=== PATIENT | male | born 1950 | race Caucasian/White ===

== ENCOUNTER 2017-04-01 06:36 | Inpatient (IN) ==
[2017-04-01] MEDS ORDERED: DIAZEPAM 5 MG TABLET ONE (07:42)
[2017-04-01] MEDS ORDERED: diphenhydrAMINE CAP 25 MG CAPSULE ONE (07:42)
[2017-04-01] MEDS ORDERED: POTASSIUM CHLORIDE RIDER 10 MEQ in PREMIX 1 EACH IV PRN (07:44)
[2017-04-01] MEDS ORDERED: ASPIRIN 325 MG TABLET PO ONE (07:44)
[2017-04-01] MEDS ORDERED: DIAZEPAM 5 MG TABLET PO ONE (07:44)
[2017-04-01] MEDS ORDERED: diphenhydrAMINE CAP 25 MG CAPSULE PO ONE (07:44)
[2017-04-01] MEDS ORDERED: MAGNESIUM SULF RIDER 2 GM in PREMIX 1 EACH IV PRN (07:44)
[2017-04-01 07:49] LABS: Basophils # 0.1 10*3/uL (0.0-0.2); Basophils % 0.9 % (0.0-0.8); Eosinophils # 0.2 10*3/uL (0.0-0.87); Eosinophils % 2.8 % (0.00-10.9); Hematocrit 33.4 VOL% (42.0-52.0); Hemoglobin 11.9 GM/DL (14.0-18.0); Immature Granulocytes % 0.5 %; Immature Granulocytes Absolute 0.03 #; Lymphocytes # 1.3 10*3/uL (1.4-4.0); Lymphocytes % 20.1 % (21.2-54.2); Mean Corpuscular HGB Conc 35.6 GM/DL (32-36); Mean Corpuscular Hemoglobin 30 PG (27-34); Mean Corpuscular Volume 84.6 FL (87-102); Mean Platelet Volume 11.8 FL (9.6-12.0); Monocytes # 0.7 10*3/uL (0.11-0.8); Monocytes % 11.2 % (1.7-12.7); Neutrophils # 4.2 10*3/uL (1.4-7.4); Neutrophils % 64.5 % (38.7-73.9); Platelet Count 179 T/CUMM (130-400); Red Blood Count 3.95 MC/CUMM (3.8-5.5); Red Cell Distribution Width 13.1 % (9.3-17.3); White Blood Count 6.5 T/CUMM (4-12)
[2017-04-01] MEDS: SODIUM CHLORIDE 0.9% 1,000 ML IV SCH ×3 (07:51→17:38)
[2017-04-01] MEDS ORDERED: LIDOCAINE 1% 20 ML VIAL ONE (07:52)
[2017-04-01] MEDS ORDERED: HYDROmorphone 2 MG/1 ML VIAL ONE (07:52)
[2017-04-01] MEDS ORDERED: MIDAZOLAM 2 MG/2 ML VIAL ONE (07:52)
[2017-04-01 07:54] LABS: PT Patient Result 10.8 SECS
[2017-04-01 08:00] LABS: Calcium 9.4 MG/DL (8.5-10.1); Magnesium 2.3 MG/DL (1.8-2.4); Osmolality,Calculated 290.7 MOS/KG (273-304); Potassium 3.9 MMOL/L (3.5-5.1)
[2017-04-01] MEDS ORDERED: ADENOSINE 90 MG/30 ML VIAL IV ONE (08:33)
[2017-04-01] MEDS ORDERED: HEPARIN 5,000 UNIT/1 ML VIAL ONE (08:36)
--- NOTE | 2017-04-01 09:12 | Cardiac Catheterization ---
Date of Procedure:: 04/01/17 Post-op diagnosis: same Procedure: Procedures performed: 1. Left heart catheterization 2. Coronary angiography 3. Left ventriculography 4. WaveWire evaluation of LAD lesion 5. Right femoral arteriotomy closed with Angio-Seal device Brief medical summary: Mr. Mathew is a 66-year-old with history of multiple stents including proximal OM occlusion stenting and distal circumflex stenting in 2011. He is back with progressive angina's symptoms that are limiting his physical activity. Description of procedure: After obtaining informed consent, the right groin was prepped and draped in the usual sterile fashion. Next a short 6 Georgian sheath was placed in the right femoral artery using a modified Seldinger technique, after the patient received IV sedation and local anesthetic. Next a JL4 catheter was advanced over a guidewire under fluoroscopic guidance, and was engaged to the left coronary artery after which angiography was performed in multiple views. This was then removed over a wire, and a JR4 catheter was advanced in similar fashion, and was engaged to the right coronary artery after which angiography was performed in multiple views. Given the patient's intermediate to significant LAD disease, I decided to perform WaveWire evaluation. After the WaveWire evaluation, a bent pigtail catheter was advanced into the left ventricle, where hemodynamic measurements were obtained, and left ventriculography was performed. An angiogram of the sheath showed that it was inserted in the right common femoral artery in a vessel suitable for closure. Hemostasis was obtained with Angio-Seal device with no residual bleeding. The patient was transferred from the mobile lab technician in good condition without complication. 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 He was given 3500 units of heparin intravenously. An EBU 3.5 guiding cath was advancing his left coronary artery provided fairly good support. Next a wave wire was calibrated and then advanced across the area of most severe mid LAD disease. Adenosine infusion was given with clearly positive result with FFR of 0.69. Was more variation in the values due to the patient's chronic atrial fibrillation. The catheter wire was then removed from the body. Coronary angiography: Left main coronary artery is normally developed with no significant disease. The left anterior descending artery gives off a thin first diagonal branch, with mild proximal disease in the LAD. There is at least moderately calcification at the first septal takeoff and medially after the first septal there is a 70% area stenosis. Subsequent there is a reasonably long bifurcating but thinner than average second diagonal branch. The LAD has tubular 50% disease in the area between the third and fourth septal perforators. The circumflex gives off a tiny ramus and first obtuse marginal. The second obtuse marginal is nearly average in caliber is reasonably long with a widely patent proximal stent. However the ostium shows an 80% to 90% area of stenosis discretely. There is a average caliber long OM 2 branch which comes off late. There is a thin late OM 3, and an nearly average caliber late OM for branch which has a patent proximal stent which appears to be slightly oversized. There is area 50% stenosis and a "candy wrapper" fashion at the proximal distal end of the stent. Right coronary artery is a dominant vessel and is at least average in caliber. There is moderate calcification in the proximal to midportion of the tortuous right coronary artery. There is 50% proximal and mid stenosis with a area of 70% distal stenosis. There is a long thin acute marginal that supplies part of the PDA territory with 99% proximal disease. The PDA is a bit thinner than average in caliber and has a 50% area of ostial stenosis. There is a thinner than average a reasonably long p.o. 1 branch with mild disease and a tiny peel to branch. Left ventriculography: Left ventricle appears to be normal size with normal LV systolic function. The estimated ejection fraction 60%. There are no segmental wall motion normality noted. Impression: 1. Normal LV systolic function with ejection fraction estimated be 60% without segmental wall motion normality 2. Right dominant system 3. Three-vessel coronary disease as described above including but not limited to: A. 70% moderately calcified mid LAD disease with 50% tubular distal disease ( significant by WaveWire evaluation with FFR 0.69) B. 80% ostial OM stenosis (just proximal to the widely patent stent placed in 2011 which is a 2.5 x 28 Promus); there is also a distal circumflex stent with 50% "candy wrapper" stenoses just proximal and distal to the stent. C. Moderate, less than 50% proximal to mid RCA to stenosis with at least 70% distal disease 4. At least moderate calcification is noted in the proximal to mid LAD as well as in the proximal mid circumflex and RCA. Recommendation discussion: Given the patient has three-vessel disease with a reasonable amount of calcification, believe bypass surgery is the best treatment. I discussed his study with Dr. Larry who will review it. If he agrees elective outpatient bypass surgery will be planned. His symptoms are reasonably stable but are somewhat limiting. His Eliquis treatment will be based on when his surgery is planned. He will need to be held 48 hours before his bypass surgery. He will need to continue baby aspirin his other medications. Anesthesia: minimal conscious sedation Surgeon / Physician: Severino Mendieta Blending Machine Operator: other Estimated blood loss: minimal Specimens: none sent Condition: stable Disposition: post procedure unit - Medications / Follow-up
[2017-04-01] MEDS ORDERED: DEXTROSE 50% 25 GM/50 ML VIAL IV PRN ×2 (11:28)
[2017-04-01] MEDS ORDERED: GLUCAGON 1 MG VIAL IM PRN ×2 (11:28)
[2017-04-01] MEDS ORDERED: CEFUROXIME INJ 1,500 MG in SODIUM CHLORIDE 0.9% 100 ML IV ONE (11:28)
--- NOTE | 2017-04-01 11:28 | Cardiothoracic Progress Note ---
Cardiothoracic Subjective Interval history: Patient is a 66-year-old man who has been having symptoms of increasing chest and neck discomfort associated with exertion. He was admitted for outpatient catheterization which revealed severe three-vessel coronary disease. There is heavy calcification in the proximal vessels and previous stenting procedures. Dr. Mendieta believes that bypass surgery presents the best option. I reviewed the films and I agree and have discussed it at length with the patient and his family and we are planning for bypass surgery in the morning on . The patient has been off Eliquis since Thursday. I think it will be okay to proceed. Exam (Progress Note) - Constitutional Vitals: Period Temp Pulse Resp BP Sys/Guzman Pulse Ox Last 24 Hr 97.2 F 72 20 137/83 98 Result/EKG - Labs CBC & BMP: 04/01/17 07:23 04/01/17 07:23 Labs: Laboratory Results - last 24 hr 04/01/17 04/01/17 04/01/17 07:23 07:23 07:23 WBC 6.5 RBC 3.95 Hgb 11.9 L Hct 33.4 L MCV 84.6 L MCH 30 MCHC 35.6 RDW 13.1 Plt Count 179 MPV 11.8 Neut % (Auto) 64.5 Lymph % (Auto) 20.1 L [place] % (Auto) 11.2 Eos % (Auto) 2.8 Baso % (Auto) 0.9 H Neut # (Auto) 4.2 Lymph # (Auto) 1.3 L [place] # (Auto) 0.7 Eos # (Auto) 0.2 Baso # (Auto) 0.1 Immature Gran % 0.5 Nucleated RBC % 0.0 Immature Gran # 0.03 Nucleated RBCs # 0.00 INR 1.0 PT Patient/Control Mix 10.8 Sodium 138 Potassium 3.9 Chloride 103 Carbon Dioxide 25 Anion Gap 13.9 BUN 32 H Creatinine 1.70 H GFR Calculation 45 BUN/Creatinine Ratio 18.00 Glucose 260 H Calculated Osmolality 290.7 Calcium 9.4 Magnesium 2.3
--- NOTE | 2017-04-01 12:14 | Hospitalist Consult Note ---
Assessment and Plan (1) Diabetes Status: Acute Assessment and plan: Initiate accuchecks achs. SSI insulin ordered. Hbg A1c in am. Current Visit: Yes (2) Hypertension Status: Acute Assessment and plan: Pt's blood pressures are currently stable. Will continue to monitor. Current Visit: Yes (3) Coronary artery disease Status: Acute Assessment and plan: Pt. is s/p heart cath. Pt is scheduled for 1st case CABG in am. Current Visit: Yes History of Present Illness - Consult Narrative Reason for consult: diabetes management History of present illness: Mr. Mathew is a 66 year old white male patient with a history of htn, coronary artery disease, mutliple stents, hyperlipidemia, and diabetes that underwent cardiac catheterization today as a result of progressively worsening chest pain and shortness of breath over the last serveral months. The patient was found to have multi vessel disease and will be undergoing a CABG in the morning. The hospitalist service has been consulted for the management of patient's diabetes. Pt. seen and examined post cath with daughter at bedside. Pt. currently takes metformin and glimperide at home. These medications will be held and a SSI will be initiated. Thank you for the consult and we will follow with you in the care of this patient. CC: Severino Puri - Home Medications and Allergies Home Medications: Home Medications Medication Instructions Recorded Confirmed Type Acyclovir [Zovirax Cap/Tab] 400 mg PO 5X DAILY 10/26/15 04/01/17 History Apixaban [Eliquis] 5 mg PO BID 10/26/15 04/01/17 History Aspirin [Ecotrin] 81 mg PO BEDTIME 10/26/15 04/01/17 History Diltiazem Cd Cap [Cardizem CD] 120 mg PO BID 10/26/15 04/01/17 History Diphenoxylate/Atrop 2.5-0.025 2 tablet PO Q6H PRN 10/26/15 04/01/17 History [Lomotil Tab] Esomeprazole Magnesium [Nexium] 40 mg PO BEDTIME 10/26/15 04/01/17 History Gemfibrozil 600 mg PO BID 10/26/15 04/01/17 History Glimepiride [Amaryl] 4 mg PO BID W/MEALS 10/26/15 04/01/17 History Lidocaine 5% Patch [Lidoderm 5% 1 patch TRANSDERM DAILY 10/26/15 04/01/17 History Patch] Lisinopril 20 mg PO DAILY 10/26/15 04/01/17 History Magnesium Chloride [Slow Mag] 64 mg PO BID 10/26/15 04/01/17 History Methocarbamol Tab [Robaxin Tab] 750 mg PO DAILY PRN 10/26/15 04/01/17 History Multivitamin [One Daily] 1 each PO DAILY 10/26/15 04/01/17 History [place]-3 Fatty Acids [Fish Oil] 1,000 mg PO DAILY 10/26/15 04/01/17 History Umeclidinium Brm/Vilanterol Tr 1 puff INH DAILY 10/26/15 04/01/17 History [Anoro Ellipta] Vitamin E 400 unit PO DAILY 10/26/15 04/01/17 History Zolpidem Tartrate [Ambien Cr] 12.5 mg PO BEDTIME 10/26/15 04/01/17 History diphenhydrAMINE CAP [Benadryl Cap] 25 mg PO Q6H PRN 10/26/15 04/01/17 History metFORMIN [Glucophage] 1,000 mg PO BID W/MEALS 10/26/15 04/01/17 History Hydrocodone/Acetaminophen [Lortab 1 each PO DIRECTED PRN #20 11/02/15 Rx 10-325 mg Tablet] tablet Carvedilol [Coreg] 6.25 mg PO BID 04/01/17 04/01/17 History Furosemide 20 mg PO DAILY 04/01/17 04/01/17 History Gabapentin 300 mg PO BID 04/01/17 04/01/17 History Multivit-Min/FA/Lutein/Zeaxant 1 tablet PO DAILY 04/01/17 04/01/17 History [Icaps Mv Tablet] Rosuvastatin Calcium [Crestor] 40 mg PO BEDTIME 04/01/17 04/01/17 History sitaGLIPtin [Januvia] 100 mg PO DAILY 04/01/17 04/01/17 History Allergies/Adverse Reactions: Allergies Allergy/AdvReac Type Severity Reaction Status Date / Time shrimp Allergy Mild ITCHING Verified 11/01/15 08:25 Sulindac [From Clinoril] Allergy Mild ITCHING Verified 11/01/15 08:25 Medical,Surgical,& Family Hx - Medical History Cardio: History of: Cerebrovascular Disease (A FLUTTER), Hypertension, Cardiovascular Problems (DR LINDQUIST CARDIOVERSION 4-5 YEARS AGO) Neurology: History of: Peripheral Neuropathy (DIABETIC NERVE PAIN) No history of: Seizures HEENT: History of: Eye Problem (READING GLASSES, MACULAR DEGERATION PT GETS SHOTS Q6 WEEKS), Dental Problems (UPPER FULL PLATE) Endocrine: History of: Diabetes Mellitus (NIDDM), Dyslipidemia, Thyroid Disorder Respiratory: History of: Respiratory Problems (ASBESTOSIS) Genitourinary: History of: Kidney Stones Gastrointestinal: History of: GERD, Hemorrhoids, Liver Problems (ELEVATED ENZYMES IN PAST), Polyps (REMOVED), GI Problems (DIARRHEA) Musculoskeletal: History of: Back/Neck Problems, Degenerative Disk Disease ( FRACTURE 1983 DR JONES PAST HX SPINAL INJECTIONS) Other: History of: Cancer (SKIN RIGHT EAR, SHOULDER) - Surgical History Cardiac Surgeries: Sugical HX of: Cardiac Catheterization (5 STENTS) HEENT Surgeries: Surgical HX of: Eye Surgery (LEFT EYE RETINA SURGERY), Thyroid Surgery (BX), Tonsilectomy & Adenoidectomy Abdominal Surgeries: Surgical HX of: Cholecystectomy, Colonoscopy, EGD Orthopedic Surgeries: Surgical HX of;: Implanted Devices (5 STENTS), Orthopedic Surgery (BILATERAL CARPAL TUNNEL) - Family History Family History: Reports;: Family Anesthesia Reaction (MOTHER ALLEGRY), Family Diabetes (MOTHER), Family Heart Disease (MOTHER FATHER), Family Hypertension ( MOTHER AND FATHER), Family Stroke (FATHER) - Social History Smoking Status: Former smoker Frequency of Alcohol Use: None Type of Drug Use: None Marital Status: Lives With:: Spouse Functional capacity: independent ambulation - Constitutional Constitutional: Absent: chills, fever(s) - EENT Eyes: Absent: blurry vision Ears: Absent: decreased hearing - Cardiovascular Cardiovascular: Present: chest pain at rest, chest pain with activity, dyspnea on exertion. Absent: edema - Respiratory Respiratory: Present: dyspnea - Gastrointestinal Gastrointestinal: Absent: abdominal pain, nausea, vomiting - Genitourinary Genitourinary: Absent: difficulty urinating - Musculoskeletal Musculoskeletal: Present: back pain - Neurological Neurological: Absent: confusion Exam - Constitutional Vitals: Period Temp Pulse Resp BP Sys/Guzman Pulse Ox Last 24 Hr 97.2 F-97.8 F 58-72 18-20 130-137/76-83 98-100 General appearance: normal weight, no acute distress - Head Head exam: Present: normal inspection, normocephalic - Eye Eye exam: Present: EOMI. Absent: periorbital swelling Pupils: Present: HEATHER. Absent: fixed - Cardiovascular Cardiovascular exam: Present: regular rate and rhythm - GI/Abdominal GI/Abdominal exam: Present: normal bowel sounds, soft. Absent: tenderness - Extremities Exam Extremities exam: Present: normal capillary refill, full ROM. Absent: edema - Neurological Exam Neurological exam: Present: alert, oriented X3 - Psychiatric Psychiatric exam: Present: normal affect, normal mood - Skin Skin exam: Present: normal color, warm, dry Results - Labs CBC & BMP: 04/01/17 07:23 04/01/17 07:23 Lab Results: I have reviewed the past 24 hour labs Quality Measures - VTE Contraindication to Pharmacological VTE Prophylaxis: High Risk of Bleeding
--- NOTE | 2017-04-01 12:19 | EKG Report ---
Stationary ECG Study [facility] Test Date: 04/01/2017 12:19:41 PM Pat Name: SANIYA SPARKS Department: Room: 266 Gender: M Cylinder Honer: ELVI : 1950 Requested by: Kobe Krishnamurthy Order Number: [id number] Reading MD: EDINSON LLAMAS Intervals [place] Rate: 61 P: 999 ID: 0 QRS: 5 QRSD: 95 T: -11 QT: 392 QTc: 395 Interpretive Statements ATRIAL FIBRILLATION MINIMAL VOLTAGE CRITERIA FOR LVH INFERIOR MYOCARDIAL INFARCTION, PROBABLY OLD Electronically Signed On 04-01-17 17:57:12 CDT by EDINSON LLAMAS [email or web address]
[2017-04-01 13:56] LABS: ABG HCO3 22.7 MMOL/L (20-26); ABG Oxygen Saturation 99.1 % (95-100); ABG PCO2 39.8 MM HG (35-48); ABG TCO2 20.9 MMOL/L (23-27); Allen Test Positive
[2017-04-01] MEDS ORDERED: diphenhydrAMINE CAP 25 MG CAPSULE PO PRN (15:16)
[2017-04-01] MEDS ORDERED: DIPHENOXYLATE/ATROPINE 2.5-0.025 MG TABLET PO PRN (15:16)
[2017-04-01] MEDS ORDERED: ONDANSETRON 4 MG/2 ML VIAL IV PRN (15:22)
--- NOTE | 2017-04-01 15:45 | Sleep Medicine Consult ---
Assessment and Plan (1) Unspecified sleep apnea Status: Acute Assessment and plan: This patient has symptoms quite concerning for sleep apnea and I do recommend HST evaluation tonight. We will follow-up on these results and further management and care postoperatively. Thank you for this consult. Current Visit: Yes (2) Diabetes Status: Acute Assessment and plan: The prevalence rate for obstructive sleep apnea in patients with type 2 diabetes can be as high as 86%. Those patients with moderate to severe obstructive sleep apnea are at a greater risk for diabetic nephropathy and neuropathy. Compliance with CPAP therapy for these patients can lead to improvement in glycemic control and improvement in insulin sensitivity. Current Visit: Yes (3) Hypertension Status: Acute Assessment and plan: The prevalence rate for obstructive sleep apnea patients with hypertension is 35 %. That rate can be as high as 80% in patients who require 4 or more medications for blood pressure control. Current Visit: Yes (4) Coronary artery disease Status: Acute Assessment and plan: I reviewed the Poe data from Lancet 2004 with the patient to their understanding. This study proved significant reduction in the risk of fatal and nonfatal cardiac events in patients with severe obstructive sleep apnea compliant with CPAP, in comparison with those noncompliant with CPAP for severe sleep apnea. Current Visit: Yes History of Present Illness Chief complaint: Sleep apnea History of present illness: Mr. Mathew is a 66 year old male admitted with chest pain and abnormal heart cath. He is scheduled to undergo bypass surgery tomorrow by Dr. Larry. He underwent screening sleep evaluation and had an elevated stop bang score of 6 and an [place] sleepiness score of 16. He does have a history of loud snoring and abnormal breathing during sleep with witnessed apneas according to his . He does have unrefreshing sleep and frequent urination with nocturia. He has significant past medical history of coronary artery disease and diabetes. Home Medications Medication Instructions Recorded Confirmed Type Acyclovir [Zovirax Cap/Tab] 400 mg PO 5X DAILY 10/26/15 04/01/17 History Apixaban [Eliquis] 5 mg PO BID 10/26/15 04/01/17 History Aspirin [Ecotrin] 81 mg PO BEDTIME 10/26/15 04/01/17 History Diltiazem Cd Cap [Cardizem CD] 120 mg PO BID 10/26/15 04/01/17 History Diphenoxylate/Atrop 2.5-0.025 2 tablet PO Q6H PRN 10/26/15 04/01/17 History [Lomotil Tab] Esomeprazole Magnesium [Nexium] 40 mg PO BEDTIME 10/26/15 04/01/17 History Gemfibrozil 600 mg PO BID 10/26/15 04/01/17 History Glimepiride [Amaryl] 4 mg PO BID W/MEALS 10/26/15 04/01/17 History Lidocaine 5% Patch [Lidoderm 5% 1 patch TRANSDERM DAILY 10/26/15 04/01/17 History Patch] Lisinopril 20 mg PO DAILY 10/26/15 04/01/17 History Magnesium Chloride [Slow Mag] 64 mg PO BID 10/26/15 04/01/17 History Methocarbamol Tab [Robaxin Tab] 750 mg PO DAILY PRN 10/26/15 04/01/17 History Multivitamin [One Daily] 1 each PO DAILY 10/26/15 04/01/17 History [place]-3 Fatty Acids [Fish Oil] 1,000 mg PO DAILY 10/26/15 04/01/17 History Umeclidinium Brm/Vilanterol Tr 1 puff INH DAILY 10/26/15 04/01/17 History [Anoro Ellipta] Vitamin E 400 unit PO DAILY 10/26/15 04/01/17 History Zolpidem Tartrate [Ambien Cr] 12.5 mg PO BEDTIME 10/26/15 04/01/17 History diphenhydrAMINE CAP [Benadryl Cap] 25 mg PO Q6H PRN 10/26/15 04/01/17 History metFORMIN [Glucophage] 1,000 mg PO BID W/MEALS 10/26/15 04/01/17 History Hydrocodone/Acetaminophen [Lortab 1 each PO DIRECTED PRN #20 11/02/15 Rx 10-325 mg Tablet] tablet Carvedilol [Coreg] 6.25 mg PO BID 04/01/17 04/01/17 History Furosemide 20 mg PO DAILY 04/01/17 04/01/17 History Gabapentin 300 mg PO BID 04/01/17 04/01/17 History Multivit-Min/FA/Lutein/Zeaxant 1 tablet PO DAILY 04/01/17 04/01/17 History [Icaps Mv Tablet] Rosuvastatin Calcium [Crestor] 40 mg PO BEDTIME 04/01/17 04/01/17 History sitaGLIPtin [Januvia] 100 mg PO DAILY 04/01/17 04/01/17 History Allergies Allergy/AdvReac Type Severity Reaction Status Date / Time shrimp Allergy Mild ITCHING Verified 11/01/15 08:25 Sulindac [From Clinoril] Allergy Mild ITCHING Verified 11/01/15 08:25 Review of systems: Otherwise unremarkable from a sleep standpoint. Exam (Pulmonay) H&P - Constitutional Vitals: Period Temp Pulse Resp BP Sys/Guzman Pulse Ox Last 24 Hr 97.1 F-97.8 F 58-74 18-20 114-155/64-83 98-100 Exam: He is alert and responsive in no acute distress. Pupils equal round reactive to light and accommodation. Extraocular movements intact. Oropharynx with a class II Mallampati exam with a prominent right tonsil compared to the left. Neck is supple without adenopathy or thyromegaly. No supraclavicular adenopathy is noted. Chest with symmetrical breath sounds without focal wheeze , rhonchi, or rales. Cardiac exam reveals a regular rhythm without murmur or gallop. Abdomen soft nontender without palpable hepatosplenomegaly or mass. Extremities are without clubbing, cyanosis, or edema. Neurologically, he is grossly intact. Moves all extremities with good strength and answers questions appropriately. Medical,Surgical,& Family Hx - Medical History Cardio: History of: Cerebrovascular Disease (A FLUTTER), Hypertension, Cardiovascular Problems (DR LINDQUIST CARDIOVERSION 4-5 YEARS AGO) Neurology: History of: Peripheral Neuropathy (DIABETIC NERVE PAIN) No history of: Seizures HEENT: History of: Eye Problem (READING GLASSES, MACULAR DEGERATION PT GETS SHOTS Q6 WEEKS), Dental Problems (UPPER FULL PLATE) Endocrine: History of: Diabetes Mellitus (NIDDM), Dyslipidemia, Thyroid Disorder Respiratory: History of: Respiratory Problems (ASBESTOSIS) Genitourinary: History of: Kidney Stones Gastrointestinal: History of: GERD, Hemorrhoids, Liver Problems (ELEVATED ENZYMES IN PAST), Polyps (REMOVED), GI Problems (DIARRHEA) Musculoskeletal: History of: Back/Neck Problems, Degenerative Disk Disease ( FRACTURE 1984 DR JONES PAST HX SPINAL INJECTIONS) Other: History of: Cancer (SKIN RIGHT EAR, SHOULDER) - Surgical History Cardiac Surgeries: Sugical HX of: Cardiac Catheterization (5 STENTS) HEENT Surgeries: Surgical HX of: Eye Surgery (LEFT EYE RETINA SURGERY), Thyroid Surgery (BX), Tonsilectomy & Adenoidectomy Abdominal Surgeries: Surgical HX of: Cholecystectomy, Colonoscopy, EGD Orthopedic Surgeries: Surgical HX of;: Implanted Devices (5 STENTS), Orthopedic Surgery (BILATERAL CARPAL TUNNEL) - Family History Family History: Reports;: Family Anesthesia Reaction (MOTHER ALLEGRY), Family Diabetes (MOTHER), Family Heart Disease (MOTHER FATHER), Family Hypertension ( MOTHER AND FATHER), Family Stroke (FATHER) - Social History Smoking Status: Former smoker Frequency of Alcohol Use: None Type of Drug Use: None Results - Labs CBC & BMP: 04/01/17 07:23 04/01/17 07:23 Lab Results: I have reviewed the past 24 hour labs Quality Measures - VTE Contraindication to Pharmacological VTE Prophylaxis: High Risk of Bleeding
[2017-04-01] MEDS: INSULIN LISPRO 100 UNIT/ML SUBCUT SCH ×2 (16:13→20:26)
[2017-04-01] MEDS: CARVEDILOL 6.25 MG TABLET PO SCH (16:13)
[2017-04-01] MEDS: CHLORHEXIDINE 4% SOLN 118 ML BOTTLE TOP SCH ×2 (16:15→21:44)
--- NOTE | 2017-04-01 18:29 | XRay Report ---
History: Coronary artery disease Date: 04/01/2017 Study: Chest x-ray PA and lateral Comparison exam: September 12, 2012 The cardiomediastinal silhouette and pulmonary vasculature are unremarkable. The lungs and pleural spaces are clear. There is no pleural effusion. Osseous structures are unchanged. Impression: No acute cardiopulmonary process compared to the previous study PROCEDURE INTERPRETED AT [facility] DEPARTMENT OF RADIOLOGY Final Report Signed by: Dr. Clementina Vicente
[2017-04-01] MEDS: MAGNESIUM CHLORIDE 64 MG TABLET PO SCH (20:24)
[2017-04-01] MEDS: DILTIAZEM CD 120 MG CAPSULE PO SCH (20:25)
[2017-04-01] MEDS: GABAPENTIN 300 MG CAPSULE PO SCH (20:25)
[2017-04-01] MEDS: CHLORHEXIDINE 0.12% ORAL RINSE 60 ML BOTTLE SWISH/SPIT SCH (20:34)
[2017-04-01] MEDS ORDERED: ZALEPLON 5 MG CAPSULE PO SCH (21:00)
[2017-04-01] MEDS ORDERED: ROSUVASTATIN 20 MG TABLET PO SCH (21:00)
[2017-04-02 04:32] LABS: Basophils % 0.6 % (0.0-0.8); Eosinophils # 0.2 10*3/uL (0.0-0.87); Eosinophils % 2.4 % (0.00-10.9); Hemoglobin 10.7 GM/DL (14.0-18.0); Immature Granulocytes % 0.3 %; Immature Granulocytes Absolute 0.02 #; Lymphocytes # 1.3 10*3/uL (1.4-4.0); Lymphocytes % 21.2 % (21.2-54.2); Mean Corpuscular HGB Conc 34.5 GM/DL (32-36); Mean Corpuscular Hemoglobin 30 PG (27-34); Mean Corpuscular Volume 85.4 FL (87-102); Mean Platelet Volume 11.7 FL (9.6-12.0); Monocytes # 0.8 10*3/uL (0.11-0.8); Monocytes % 12.7 % (1.7-12.7); Neutrophils # 3.9 10*3/uL (1.4-7.4); Neutrophils % 62.8 % (38.7-73.9); Platelet Count 162 T/CUMM (130-400); Red Blood Count 3.63 MC/CUMM (3.8-5.5); Red Cell Distribution Width 13.2 % (9.3-17.3); White Blood Count 6.3 T/CUMM (4-12)
[2017-04-02] MEDS ORDERED: PAPAVERINE 60 MG/2 ML VIAL ONE (04:34)
[2017-04-02] MEDS ORDERED: VANCOMYCIN 1,000 MG VIAL ONE (04:34)
[2017-04-02] MEDS ORDERED: TISSUE ADHESIVE 1 EACH APPLICATOR TOP ONE (04:34)
[2017-04-02 05:07] LABS: Calcium 8.9 MG/DL (8.5-10.1); Magnesium 2.3 MG/DL (1.8-2.4); Osmolality,Calculated 285.4 MOS/KG (273-304)
[2017-04-02] MEDS: SODIUM CHLORIDE 0.9% 1,000 ML IV SCH ×2 (05:19→19:18)
[2017-04-02] MEDS: CHLORHEXIDINE 4% SOLN 118 ML BOTTLE TOP SCH ×2 (05:20→12:01)
[2017-04-02] MEDS ORDERED: CEFUROXIME INJ 1,500 MG in SODIUM CHLORIDE 0.9% 100 ML IV ONE (05:30)
[2017-04-02] MEDS ORDERED: LORazepam 1 MG TABLET PO ONE (05:44)
[2017-04-02 07:31] LABS: ABG Base Excess -2.4 MMOL/L (-2.5-2.5); ABG HCO3 22.4 MMOL/L (20-26); ABG Oxygen Saturation 99.8 % (95-100); ABG PCO2 37.3 MM HG (35-48); ABG PH 7.383 (7.35-7.45); ABG TCO2 20.2 MMOL/L (23-27); Glucose Heart Surgery 196 MG/DL (74-106); Hematocrit Heart Surgery 31.4 PERCENT (42-52); Hemoglobin Heart Surgery 10.2 G/DL (14.0-18.0); Ionized Calcium Arterial 1.14 MMOL/L (1.21-1.46); PCO2 Patient Temp Arterial 37.3 MMHG; PH Patient Temp Arterial 7.383; Patient Temperature 37 CELCIUS; Potassium Heart/CVR 3.8 MMOL/L (3.5-5.1); Sodium Heart/CVR 139 MMOL/L (135-145)
[2017-04-02 07:34] LABS: Apearance,Urine CLEAR (Clear); Bilirubin,Urine Negative (Negative); Blood, Urine Small mg/dL (Negative); Glucose,Urine (UA) Negative (Negative); Ketones,Urine Negative (Negative); Mucus,Urine Occasional /LPF (Occasional); Nitrite,Urine Negative (Negative); Protein,Urine Negative; Urine Color Straw (Yellow); Urine Specific Gravity 1.008 (1.001-1.035); Urine Urobilinogen < 2.0 EU/DL (0.2-1.0); WBC,Urine <1 /HPF (0-6)
--- NOTE | 2017-04-02 08:02 | Anesthesia Procedures ---
Anesthesia Procedures - Central Venous Insert Monitors Applied: pulse oximetry, EKG, BP cuff, oxygen via MSBT: pulse oximetry, EKG, BP cuff, oxygen via Procedure: after sterile technique was performed as outlined above, , ultrasound guidance was used to identify vessel, 18G introducer needle was passed into vessel under direct visualizatio, triple lumen catheter was passed over guidewire without difficulty, catheter sutured into place and the ports flushed with NS/hepflush, sterlie dressing applied including the antibiotic disc , vital signs were stable throughout procedure, no apparent complications were noted Ultrasound used: identify patency vessel, visualize needle entry to vessel Vein Cannulated: right internal juglar - Arterial Line Consent obtained arterial line: written consent Time out performed arterial line: Yes Size (Gauge): 20 Technique used arterial line: guide wire technique Post-Procedure: line sutured into place, dry sterile dressing placed Patient tolerated procedure arterial line: well Complications art line: none Site: right, radial
[2017-04-02] MEDS ORDERED: MULTIVITAMIN (CENTRUM) TABLET PO SCH (09:00)
[2017-04-02] MEDS ORDERED: NON-FORMULARY MEDICATION (Umeclidinium Brm/Vilanterol Tr [Anoro Ellipta] 1 PUFF) INH SCH (09:00)
[2017-04-02] MEDS ORDERED: VITAMIN E 400 UNIT CAPSULE PO SCH (09:00)
[2017-04-02] MEDS ORDERED: OMEGA 3 ACID ETHYL ESTERS 1 GM CAPSULE PO SCH (09:00)
[2017-04-02] MEDS ORDERED: LISINOPRIL 20 MG TABLET PO SCH (09:00)
[2017-04-02] MEDS ORDERED: PHENYLEPHRINE DRIP 40 MG/250 ML PREMIX IV ONE (09:07)
[2017-04-02] MEDS ORDERED: NITROPRUSSIDE 50 MG/2 ML VIAL ONE (09:07)
[2017-04-02] MEDS ORDERED: POTASSIUM CHLORIDE RIDER 100 ML IV ONE (09:07)
[2017-04-02] MEDS ORDERED: INSULIN REGULAR DRIP 100 ML IV ONE (09:09)
[2017-04-02 09:13] LABS: Hematocrit Heart Surgery 21.3 PERCENT (42-52); Hemoglobin Heart Surgery 6.8 G/DL (14.0-18.0); PCO2 Patient Temp Venous 39.3 MM HG; PH Patient Temp Venous 7.397; PO2 Patient Temp Venous 30.5 MM HG; Potassium Heart/CVR 5.3 MMOL/L (3.5-5.1); VBG Base Excess -0.3 MEQ/L (0-4); VBG HCO3 23.9 MEQ/L (24-28); VBG Oxygen Saturation 69.5 %; VBG PCO2 45.4 MMHG (41-51); VBG PH 7.354; VBG PO2 37.6 MMHG (17-40)
[2017-04-02 09:44] LABS: Hematocrit Heart Surgery 23.8 PERCENT (42-52); Hemoglobin Heart Surgery 7.6 G/DL (14.0-18.0); PCO2 Patient Temp Venous 39.3 MM HG; PH Patient Temp Venous 7.389; PO2 Patient Temp Venous 36.2 MM HG; VBG Base Excess -0.9 MEQ/L (0-4); VBG HCO3 23.4 MEQ/L (24-28); VBG Oxygen Saturation 78.4 %; VBG PCO2 45.4 MMHG (41-51); VBG PH 7.346; VBG PO2 44.5 MMHG (17-40)
[2017-04-02] MEDS ORDERED: INSULIN REGULAR 100 UNIT/ML ONE (09:58)
--- NOTE | 2017-04-02 10:17 | Anesthesia Procedures ---
Anesthesia Procedures - Arterial Line Consent obtained arterial line: written consent Time out performed arterial line: Yes Size (Gauge): 20 Technique used arterial line: guide wire technique Post-Procedure: line sutured into place, dry sterile dressing placed Patient tolerated procedure arterial line: well, no complications Complications art line: none Site: right
[2017-04-02] MEDS ORDERED: DEXTROSE 5% KCL 20 MEQ 20 MEQ/1,000 ML BAG IV ONE (10:38)
[2017-04-02] MEDS ORDERED: PROTAMINE SULFATE 250 MG/25 ML VIAL IV ONE (10:38)
[2017-04-02] MEDS ORDERED: SODIUM BICARBONATE 50 MEQ/50 ML SYRINGE IV ONE (10:38)
[2017-04-02] MEDS ORDERED: PHENYLEPHRINE DRIP 20 MG/250 ML PREMIX IV ONE (10:38)
[2017-04-02] MEDS ORDERED: ALBUMIN 25% 25 GM/100 ML VIAL IV ONE (10:38)
[2017-04-02] MEDS ORDERED: FUROSEMIDE 20 MG/2 ML VIAL ONE (10:39)
[2017-04-02] MEDS ORDERED: HEPARIN 10,000 UNIT/10 ML VIAL ONE (10:39)
[2017-04-02] MEDS ORDERED: methylPREDNISolone SOD SUC 1,000 MG/8 ML VIAL ONE (10:39)
[2017-04-02] MEDS ORDERED: PROTAMINE SULFATE 50 MG/5 ML VIAL IV ONE ×3 (10:39→12:02)
[2017-04-02] MEDS ORDERED: MANNITOL 12.5 GM/50 ML VIAL IV ONE (10:39)
[2017-04-02] MEDS ORDERED: MAGNESIUM SULFATE 1 GM/2 ML VIAL ONE (10:39)
[2017-04-02 10:50] LABS: ABG Base Excess -2.5 MMOL/L (-2.5-2.5); ABG HCO3 22.4 MMOL/L (20-26); ABG Oxygen Saturation 99.5 % (95-100); ABG PCO2 35.7 MM HG (35-48); ABG PH 7.397 (7.35-7.45); ABG TCO2 20.6 MMOL/L (23-27); Glucose Heart Surgery 287 MG/DL (74-106); Hematocrit Heart Surgery 24.5 PERCENT (42-52); Hemoglobin Heart Surgery 7.9 G/DL (14.0-18.0); Ionized Calcium Arterial 1.24 MMOL/L (1.21-1.46); PCO2 Patient Temp Arterial 35.7 MMHG; PH Patient Temp Arterial 7.397; Patient Temperature 37 CELCIUS; Potassium Heart/CVR 4.2 MMOL/L (3.5-5.1); Sodium Heart/CVR 133 MMOL/L (135-145)
[2017-04-02] MEDS ORDERED: AMIODARONE 450 MG/9 ML VIAL IV ONE (11:16)
[2017-04-02] MEDS ORDERED: AMIODARONE INJ 450 MG in DEXTROSE 5% 241 ML IV SCH ×2 (11:30→13:00)
[2017-04-02] MEDS ORDERED: VECURONIUM 10 MG VIAL IV PRN ×2 (11:37)
[2017-04-02] MEDS ORDERED: LACTATED RINGERS 250 ML IV PRN (11:37)
[2017-04-02] MEDS ORDERED: NITROPRUSSIDE 100 MG in DEXTROSE 5% 250 ML IV PRN (11:37)
[2017-04-02] MEDS ORDERED: ONDANSETRON 4 MG/2 ML VIAL IV PRN (11:37)
[2017-04-02] MEDS ORDERED: MIDAZOLAM 2 MG/2 ML VIAL IV PRN (11:37)
[2017-04-02] MEDS ORDERED: DEXTROSE 50% 25 GM/50 ML VIAL IV PRN ×2 (11:37)
[2017-04-02] MEDS ORDERED: ALBUMIN 5% 12.5 GM in PREMIX 1 EACH IV PRN (11:37)
[2017-04-02] MEDS ORDERED: CALCIUM CHLORIDE 1,000 MG/10 ML SYRINGE IV PRN (11:37)
[2017-04-02] MEDS ORDERED: MIDAZOLAM 10 MG/2 ML VIAL IV PRN (11:37)
[2017-04-02] MEDS ORDERED: MAGNESIUM SULF RIDER 4 GM in PREMIX 1 EACH IV PRN (11:37)
[2017-04-02] MEDS ORDERED: PHENYLEPHRINE DRIP 40 MG/250 ML PREMIX IV PRN (11:37)
[2017-04-02] MEDS ORDERED: ACETAMINOPHEN 650 MG SUPP RECTAL PRN (11:37)
[2017-04-02] MEDS ORDERED: MORPHINE 10 MG/1 ML VIAL IV PRN (11:37)
[2017-04-02] MEDS ORDERED: INSULIN REGULAR 100 UNIT/ML IV ONE (11:37)
[2017-04-02] MEDS ORDERED: MAGNESIUM SULF RIDER 2 GM in PREMIX 1 EACH IV PRN (11:37)
--- NOTE | 2017-04-02 11:41 | Anesthesia Post-Op ---
Anesthesia Post OP - Post Ansesthetic Evaluation Patient seen in post op: Yes Resp: within normal limits (pt remains on ventilator) CV: within normal limits Mental: within normal limits (pt sedate) Temp: within normal limits [id number]-Byrhqmbyr: within normal limits Nausea and Vomiting: within normal limits Pain: within normal limits (pt sedate)
--- NOTE | 2017-04-02 11:45 | Operative Note ---
Date of procedure: 04/02/17 Pre-op diagnosis: Coronary artery disease Post-op diagnosis: same Procedure: Procedure: Coronary bypass grafting 3 with an internal mammary graft to the anterior descending coronary artery and saphenous vein graft to the obtuse marginal and right coronary arteries. Findings: Patient is a 66-year-old man who presented with recent onset of substernal chest pain. Cardiac catheterization demonstrated triple-vessel coronary disease and the patient was advised to help bypass surgery. At the time of surgery left ventricular function was noted to be within normal limits although the patient was in atrial fibrillation. Bypass grafts were placed to the anterior descending coronary artery using the left internal mammary artery and the left anterior descending was a moderate-sized vessel which was relatively free of disease at the site of anastomosis. Saphenous vein grafts were placed to the obtuse marginal and right coronary arteries both of which were of average caliber and relatively free of disease at the site of anastomosis. Patient tolerated procedure well and was returned to recovery in satisfactory condition. Procedure: Patient was brought to the operating room placed on the operating table in the supine position. After satisfactory induction of general anesthesia the chest abdomen and legs were prepped and draped in sterile fashion. Greater saphenous vein was harvested from each lower leg and prepared is an arterial graft. Incisions in the leg were closed with 3-0 subcutaneous Monocryl and 3-0 subcuticular Monocryl. A standard sternotomy incision was made and the sternum was divided and the heart suspended in a pericardial cradle. Left internal mammary artery was dissected free and prepared as an arterial graft. Patient was prepared for cardiopulmonary bypass with systemic heparinization and cannulation of the ascending aorta and right atrium. Cardiopulmonary bypass was begun and the aorta was crossclamped and the heart arrested with cardioplegia solution injected into the aortic root. Heart was protected during the period of crossclamping with topical saline slush. Distal anastomoses were constructed as noted above and then the aorta was unclamped and cardiac action reestablished. Proximal anastomoses were constructed between the inflow ends of the saphenous vein grafts in the ascending aorta. Patient was then weaned from cardiopulmonary bypass without difficulty and heparin effect reversed with protamine. Decannulation was carried out in a defects in the ascending aorta right atrium closed with 3-0 Prolene. Operative field was inspected for hemostasis and this was considered adequate incision was closed with interrupted stainless steel wire and the sternum 0 Monopril in the presternal fascia and 3-0 Monocryl placed subcuticular position. 2 chest tubes were left one in the left hemithorax and one in the anterior mediastinum and brought out through separate stab incisions. Sterile dressings were applied patient was returned to recovery in satisfactory condition. Anesthesia: ERROL Surgeon / Physician: Kobe Larry Estimated blood loss: other (Unable to determine because of cardiopulmonary bypass) Condition: stable Disposition: ICU Results - Labs CBC & BMP: 04/02/17 10:46 04/02/17 03:59 Discharge Plan - Discharge Medications No Action diphenhydrAMINE CAP [Benadryl Cap] 25 mg PO Q6H PRN PRN Reason: Itching Methocarbamol Tab [Robaxin Tab] 750 mg PO DAILY PRN PRN Reason: Muscle Spasm Lidocaine 5% Patch [Lidoderm 5% Patch] 1 patch TRANSDERM DAILY Diphenoxylate/Atrop 2.5-0.025 [Lomotil Tab] 2 tablet PO Q6H PRN PRN Reason: Diarrhea Acyclovir [Zovirax Cap/Tab] 400 mg PO 5X DAILY [place]-3 Fatty Acids [Fish Oil] 1,000 mg PO DAILY Apixaban [Eliquis] 5 mg PO BID Zolpidem Tartrate [Ambien Cr] 12.5 mg PO BEDTIME Magnesium Chloride [Slow Mag] 64 mg PO BID Multivitamin [One Daily] 1 each PO DAILY Diltiazem Cd Cap [Cardizem CD] 120 mg PO BID Aspirin [Ecotrin] 81 mg PO BEDTIME Vitamin E 400 unit PO DAILY Glimepiride [Amaryl] 4 mg PO BID W/MEALS Lisinopril 20 mg PO DAILY Gemfibrozil 600 mg PO BID metFORMIN [Glucophage] 1,000 mg PO BID W/MEALS Esomeprazole Magnesium [Nexium] 40 mg PO BEDTIME Umeclidinium Brm/Vilanterol Tr [Anoro Ellipta] 1 puff INH DAILY Hydrocodone/Acetaminophen [Lortab 10-325 mg Tablet] 1 each PO DIRECTED PRN #20 tablet PRN Reason: Pain Multivit-Min/FA/Lutein/Zeaxant [Icaps Mv Tablet] 1 tablet PO DAILY Furosemide 20 mg PO DAILY Gabapentin 300 mg PO BID sitaGLIPtin [Januvia] 100 mg PO DAILY Rosuvastatin Calcium [Crestor] 40 mg PO BEDTIME Carvedilol [Coreg] 6.25 mg PO BID - Follow Up or Referral - Forms/Instructions
[2017-04-02] MEDS ORDERED: SUFentanil 250 MCG/5 ML AMP ONE (11:47)
[2017-04-02] MEDS ORDERED: SEVOFLURANE 1 UNIT/15 MINUTE INH ONE (11:47)
[2017-04-02] MEDS ORDERED: SODIUM CHLORIDE 0.9% 1,000 ML IV ONE (11:48)
[2017-04-02] MEDS ORDERED: SODIUM CHLORIDE 0.9% 250 ML IV ONE (11:48)
[2017-04-02] MEDS ORDERED: ePHEDrine 50 MG/ML AMP ONE (11:49)
[2017-04-02] MEDS ORDERED: SODIUM CHLORIDE 0.45% 1,000 ML IV SCH ×2 (12:00)
[2017-04-02 12:05] LABS: ABG Base Excess -2.5 MMOL/L (-2.5-2.5); ABG HCO3 21.7 MMOL/L (20-26); ABG Oxygen Saturation 97.8 % (95-100); ABG PO2 120.2 MM HG (80-95); ABG TCO2 22.8 MMOL/L (23-27); Glucose Heart Surgery 226 MG/DL (74-106); Hemoglobin Heart Surgery 9.5 G/DL (14.0-18.0); Potassium Heart/CVR 3.7 MMOL/L (3.5-5.1)
[2017-04-02 12:08] LABS: Basophils % 0.3 % (0.0-0.8); Eosinophils # 0.1 10*3/uL (0.0-0.87); Eosinophils % 0.8 % (0.00-10.9); Hematocrit 24.3 VOL% (42.0-52.0); Hemoglobin 8.5 GM/DL (14.0-18.0); Immature Granulocytes % 0.7 %; Immature Granulocytes Absolute 0.05 #; Lymphocytes # 0.7 10*3/uL (1.4-4.0); Lymphocytes % 8.7 % (21.2-54.2); Mean Corpuscular Hemoglobin 30 PG (27-34); Mean Corpuscular Volume 85.9 FL (87-102); Mean Platelet Volume 11.8 FL (9.6-12.0); Monocytes # 0.5 10*3/uL (0.11-0.8); Monocytes % 6.3 % (1.7-12.7); Neutrophils # 6.3 10*3/uL (1.4-7.4); Neutrophils % 83.2 % (38.7-73.9); Platelet Count 127 T/CUMM (130-400); Red Blood Count 2.83 MC/CUMM (3.8-5.5); Red Cell Distribution Width 13.2 % (9.3-17.3); White Blood Count 7.6 T/CUMM (4-12)
--- NOTE | 2017-04-02 12:34 | Cardiology Progress Note ---
Assessment and Plan (1) Atrial fibrillation Status: Acute Assessment and plan: 66-year-old male, CAD, atrial fibrillation, hypertension, hyperlipidemia, type 2 diabetes mellitus. Preserved LVEF. 04/02: CABG x3. -Resume aspirin, beta-veronika, statin, when enteral route feasible -AF, now converted to sinus rhythm. Continue IV amiodarone drip for rhythm control. Resume anticoagulation as soon as it is compatible with recent CT surgery, we can start with full dose LMWH then. CHADSVASC 4. -Anemia. Getting transfusion Current Visit: Yes (2) Diabetes Status: Acute Current Visit: Yes (3) Hypertension Status: Acute Current Visit: Yes (4) Coronary artery disease Status: Acute Current Visit: Yes (5) Unspecified sleep apnea Status: Acute Current Visit: Yes Cardiology - PN: Subj Interval history: He is in the ICU, status post CABG 3 today. Hemodynamic stable, off pressors. On amiodarone drip, now in sinus rhythm. Currently unresponsive, on the ventilator. Exam (Progress Note) - Constitutional Vitals: Period Temp Pulse Resp BP Sys/Guzman Pulse Ox Last 24 Hr 97.2 F-98.9 F 67-82 10-20 112-154/60-96 94-100 General appearance: normal weight, no acute distress - Head Head exam: Present: normal inspection, normocephalic - Eye Eye exam: Absent: periorbital swelling, laceration to eyelids - ENT ENT exam: Present: normal external ear exam - Neck Neck exam: Present: normal inspection, other (tlc) - Respiratory Respiratory exam: Present: decreased breath sounds. Absent: rhonchi, stridor, wheezes - Cardiovascular Cardiovascular exam: Present: regular rate and rhythm. Absent: JVD, systolic murmur - GI/Abdominal GI/Abdominal exam: Present: hypoactive bowel sounds - Extremities Exam Extremities exam: Present: normal inspection, normal capillary refill, other ( bandages). Absent: edema - Neurological Exam Neurological exam: Present: altered - Skin Skin exam: Present: normal color, warm. Absent: cyanosis Result/EKG - Labs CBC & BMP: 04/02/17 11:55 04/02/17 03:59 Lab Results: I have reviewed the past 24 hour labs Labs: Laboratory Results - last 24 hr 04/01/17 04/01/17 04/01/17 11:28 11:43 15:16 WBC RBC Hgb Hct MCV MCH MCHC RDW Plt Count MPV Neut % (Auto) Lymph % (Auto) [place] % (Auto) Eos % (Auto) Baso % (Auto) Neut # (Auto) Lymph # (Auto) [place] # (Auto) Eos # (Auto) Baso # (Auto) Immature Gran % Nucleated RBC % Immature Gran # Nucleated RBCs # Patient Temperature ABG pH 7.370 ABG pH at Pt Temp ABG pCO2 39.8 ABG pCO2 at Pt Temp ABG pO2 121.0 H ABG pO2 at Pt Temp ABG HCO3 22.7 ABG Total CO2 20.9 L ABG O2 Saturation 99.1 ABG Base Excess -2.0 ABG Sodium VBG pH VBG pCO2 VBG pO2 VBG HCO3 VBG Total CO2 VBG O2 Saturation VBG Base Excess Hemoglobin Hematocrit Ionized Calcium FiO2 28.00 Sodium Potassium Chloride Carbon Dioxide Anion Gap BUN Creatinine GFR Calculation BUN/Creatinine Ratio Glucose POC Glucose 325 H Hemoglobin A1c Calculated Osmolality Calcium Venous Ioniz Calcium Magnesium Urine Color Urine Appearance Urine pH Ur Specific [place] Urine Protein Urine Glucose (UA) Urine Ketones Urine Blood Urine Nitrate Urine Bilirubin Urine Urobilinogen Urine Leukocytes Urine WBC Urine Mucus Ur Culture Indicated? Blood Type A POSITIVE Antibody Screen Negative Crossmatch See Detail 04/01/17 04/01/17 04/02/17 18:37 Unknown 03:59 WBC RBC Hgb Hct MCV MCH MCHC RDW Plt Count MPV Neut % (Auto) Lymph % (Auto) [place] % (Auto) Eos % (Auto) Baso % (Auto) Neut # (Auto) Lymph # (Auto) [place] # (Auto) Eos # (Auto) Baso # (Auto) Immature Gran % Nucleated RBC % Immature Gran # Nucleated RBCs # Patient Temperature ABG pH ABG pH at Pt Temp ABG pCO2 ABG pCO2 at Pt Temp ABG pO2 ABG pO2 at Pt Temp ABG HCO3 ABG Total CO2 ABG O2 Saturation ABG Base Excess ABG Sodium VBG pH VBG pCO2 VBG pO2 VBG HCO3 VBG Total CO2 VBG O2 Saturation VBG Base Excess Hemoglobin Hematocrit Ionized Calcium FiO2 Sodium Potassium Chloride Carbon Dioxide Anion Gap BUN Creatinine GFR Calculation BUN/Creatinine Ratio Glucose POC Glucose 308 H Hemoglobin A1c 8.6 H Calculated Osmolality Calcium Venous Ioniz Calcium Magnesium Urine Color Urine Appearance Urine pH Ur Specific [place] Urine Protein Urine Glucose (UA) Urine Ketones Urine Blood Urine Nitrate Urine Bilirubin Urine Urobilinogen Urine Leukocytes Urine WBC Urine Mucus Ur Culture Indicated? Blood Type A POSITIVE Antibody Screen Crossmatch 04/02/17 04/02/17 04/02/17 03:59 03:59 05:15 WBC 6.3 RBC 3.63 L Hgb 10.7 L Hct 31.0 L MCV 85.4 L MCH 30 MCHC 34.5 RDW 13.2 Plt Count 162 MPV 11.7 Neut % (Auto) 62.8 Lymph % (Auto) 21.2 [place] % (Auto) 12.7 Eos % (Auto) 2.4 Baso % (Auto) 0.6 Neut # (Auto) 3.9 Lymph # (Auto) 1.3 L [place] # (Auto) 0.8 Eos # (Auto) 0.2 Baso # (Auto) 0.0 Immature Gran % 0.3 Nucleated RBC % 0.0 Immature Gran # 0.02 Nucleated RBCs # 0.00 Patient Temperature ABG pH ABG pH at Pt Temp ABG pCO2 ABG pCO2 at Pt Temp ABG pO2 ABG pO2 at Pt Temp ABG HCO3 ABG Total CO2 ABG O2 Saturation ABG Base Excess ABG Sodium VBG pH VBG pCO2 VBG pO2 VBG HCO3 VBG Total CO2 VBG O2 Saturation VBG Base Excess Hemoglobin Hematocrit Ionized Calcium FiO2 Sodium 140 Potassium 4.0 Chloride 106 Carbon Dioxide 26 Anion Gap 12.0 BUN 22 H D Creatinine 1.40 H GFR Calculation 57 BUN/Creatinine Ratio 15.00 Glucose 173 H POC Glucose 231 H Hemoglobin A1c Calculated Osmolality 285.4 Calcium 8.9 Venous Ioniz Calcium Magnesium 2.3 Urine Color Urine Appearance Urine pH Ur Specific [place] Urine Protein Urine Glucose (UA) Urine Ketones Urine Blood Urine Nitrate Urine Bilirubin Urine Urobilinogen Urine Leukocytes Urine WBC Urine Mucus Ur Culture Indicated? Blood Type Antibody Screen Crossmatch 04/02/17 04/02/17 04/02/17 07:20 07:20 07:28 WBC RBC Hgb Hct MCV MCH MCHC RDW Plt Count 148 MPV Neut % (Auto) Lymph % (Auto) [place] % (Auto) Eos % (Auto) Baso % (Auto) Neut # (Auto) Lymph # (Auto) [place] # (Auto) Eos # (Auto) Baso # (Auto) Immature Gran % Nucleated RBC % Immature Gran # Nucleated RBCs # Patient Temperature 37 ABG pH 7.383 ABG pH at Pt Temp 7.383 ABG pCO2 37.3 ABG pCO2 at Pt Temp 37.3 ABG pO2 379.0 H ABG pO2 at Pt Temp 379.0 ABG HCO3 22.4 ABG Total CO2 20.2 L ABG O2 Saturation 99.8 ABG Base Excess -2.4 ABG Sodium 139 VBG pH VBG pCO2 VBG pO2 VBG HCO3 VBG Total CO2 VBG O2 Saturation VBG Base Excess Hemoglobin 10.2 L Hematocrit 31.4 L Ionized Calcium 1.14 L FiO2 Sodium Potassium 3.8 Chloride Carbon Dioxide Anion Gap BUN Creatinine GFR Calculation BUN/Creatinine Ratio Glucose 196 H POC Glucose Hemoglobin A1c Calculated Osmolality Calcium Venous Ioniz Calcium Magnesium Urine Color Straw Urine Appearance Clear Urine pH 5.0 Ur Specific [place] 1.008 Urine Protein Negative Urine Glucose (UA) Negative Urine Ketones Negative Urine Blood Small Urine Nitrate Negative Urine Bilirubin Negative Urine Urobilinogen < 2.0 H Urine Leukocytes Negative Urine WBC <1 Urine Mucus Occasional Ur Culture Indicated? Not indicated Blood Type Antibody Screen Crossmatch 04/02/17 04/02/17 04/02/17 09:10 09:40 10:46 WBC RBC Hgb Hct MCV MCH MCHC RDW Plt Count 127 L MPV Neut % (Auto) Lymph % (Auto) [place] % (Auto) Eos % (Auto) Baso % (Auto) Neut # (Auto) Lymph # (Auto) [place] # (Auto) Eos # (Auto) Baso # (Auto) Immature Gran % Nucleated RBC % Immature Gran # Nucleated RBCs # Patient Temperature 34 34 ABG pH ABG pH at Pt Temp 7.397 7.389 ABG pCO2 ABG pCO2 at Pt Temp 39.3 39.3 ABG pO2 ABG pO2 at Pt Temp 30.5 36.2 ABG HCO3 ABG Total CO2 ABG O2 Saturation ABG Base Excess ABG Sodium 130 L 130 L VBG pH 7.354 7.346 VBG pCO2 45.4 45.4 VBG pO2 37.6 44.5 H VBG HCO3 23.9 L 23.4 L VBG Total CO2 24.2 23.5 VBG O2 Saturation 69.5 78.4 VBG Base Excess -0.3 L -0.9 L Hemoglobin 6.8 L D 7.6 L Hematocrit 21.3 L 23.8 L Ionized Calcium FiO2 80.00 80.00 Sodium Potassium 5.3 H 6.0 H* Chloride Carbon Dioxide Anion Gap BUN Creatinine GFR Calculation BUN/Creatinine Ratio Glucose 412 H 338 H POC Glucose Hemoglobin A1c Calculated Osmolality Calcium Venous Ioniz Calcium 0.96 L 1.01 L Magnesium Urine Color Urine Appearance Urine pH Ur Specific [place] Urine Protein Urine Glucose (UA) Urine Ketones Urine Blood Urine Nitrate Urine Bilirubin Urine Urobilinogen Urine Leukocytes Urine WBC Urine Mucus Ur Culture Indicated? Blood Type Antibody Screen Crossmatch 04/02/17 04/02/17 04/02/17 10:46 11:55 11:55 WBC 7.6 RBC 2.83 L D Hgb 8.5 L D Hct 24.3 L MCV 85.9 L MCH 30 MCHC 35.0 RDW 13.2 Plt Count 127 L MPV 11.8 Neut % (Auto) 83.2 H Lymph % (Auto) 8.7 L [place] % (Auto) 6.3 Eos % (Auto) 0.8 Baso % (Auto) 0.3 Neut # (Auto) 6.3 Lymph # (Auto) 0.7 L [place] # (Auto) 0.5 Eos # (Auto) 0.1 Baso # (Auto) 0.0 Immature Gran % 0.7 Nucleated RBC % 0.0 Immature Gran # 0.05 Nucleated RBCs # 0.00 Patient Temperature 37 ABG pH 7.397 7.410 ABG pH at Pt Temp 7.397 ABG pCO2 35.7 35.0 ABG pCO2 at Pt Temp 35.7 ABG pO2 154.0 H 120.2 H ABG pO2 at Pt Temp 154.0 ABG HCO3 22.4 21.7 ABG Total CO2 20.6 L 22.8 L ABG O2 Saturation 99.5 97.8 ABG Base Excess -2.5 -2.5 ABG Sodium 133 L VBG pH VBG pCO2 VBG pO2 VBG HCO3 VBG Total CO2 VBG O2 Saturation VBG Base Excess Hemoglobin 7.9 L 9.5 L Hematocrit 24.5 L 28.0 L Ionized Calcium 1.24 FiO2 Sodium Potassium 4.2 3.7 Chloride Carbon Dioxide Anion Gap BUN Creatinine GFR Calculation BUN/Creatinine Ratio Glucose 287 H 226 H POC Glucose Hemoglobin A1c Calculated Osmolality Calcium Venous Ioniz Calcium Magnesium Urine Color Urine Appearance Urine pH Ur Specific [place] Urine Protein Urine Glucose (UA) Urine Ketones Urine Blood Urine Nitrate Urine Bilirubin Urine Urobilinogen Urine Leukocytes Urine WBC Urine Mucus Ur Culture Indicated? Blood Type Antibody Screen Crossmatch - EKG EKG results: interpreted by me Quality Measures - VTE Contraindication to Pharmacological VTE Prophylaxis: High Risk of Bleeding
[2017-04-02 12:35] LABS: INR 1.2; PT Patient Result 12.7 SECS; Partial Thromboplastin Time 28.6 SECS (0-40)
[2017-04-02] MEDS: INSULIN REGULAR DRIP 100 ML IV SCH ×2 (12:35→23:08)
[2017-04-02] MEDS: LACTATED RINGERS 1,000 ML IV PRN ×4 (12:37→16:47)
[2017-04-02] MEDS: POTASSIUM CHLORIDE RIDER 20 MEQ in PREMIX 1 EACH IV PRN ×4 (12:39→20:18)
[2017-04-02] MEDS: INSULIN LISPRO 100 UNIT/ML SUBCUT SCH ×2 (12:40→19:18)
[2017-04-02] MEDS: CARVEDILOL 6.25 MG TABLET PO SCH (12:41)
[2017-04-02] MEDS: DILTIAZEM CD 120 MG CAPSULE PO SCH (12:41)
[2017-04-02] MEDS: GABAPENTIN 300 MG CAPSULE PO SCH (12:41)
[2017-04-02] MEDS: CHLORHEXIDINE 0.12% ORAL RINSE 60 ML BOTTLE SWISH/SPIT SCH ×2 (12:41→22:03)
[2017-04-02] MEDS: MAGNESIUM CHLORIDE 64 MG TABLET PO SCH (12:42)
[2017-04-02 13:05] LABS: Albumin 3.1 G/DL (3.4-5.0); Bilirubin,Total 0.5 MG/DL (0.2-1.0); Calcium 9.4 MG/DL (8.5-10.1); Magnesium 2.5 MG/DL (1.8-2.4); Osmolality,Calculated 288.5 MOS/KG (273-304); Potassium 3.8 MMOL/L (3.5-5.1); Total Protein 5.4 G/DL (6.4-8.3)
[2017-04-02 13:24] LABS: ABG HCO3 21.8 MMOL/L (20-26); ABG Oxygen Saturation 98.3 % (95-100); ABG PCO2 33.5 MM HG (35-48); ABG PH 7.431 (7.35-7.45); ABG PO2 179.4 MM HG (80-95); ABG TCO2 22.8 MMOL/L (23-27); Glucose Heart Surgery 202 MG/DL (74-106); Hemoglobin Heart Surgery 9.7 G/DL (14.0-18.0); Potassium Heart/CVR 3.6 MMOL/L (3.5-5.1)
[2017-04-02 13:30] LABS: CKMB % 9.2 %
[2017-04-02 13:33] LABS: Troponin I Only 3.95 NG/ML (0.00-0.045)
--- NOTE | 2017-04-02 13:36 | XRay Report ---
XR chest 1V portable Indication: Line placement Comparison: Chest x-ray 04/01/2017 Technique: Portable AP chest was performed. Findings: Heart size appears within normal limits. There is been interval sternotomy. Yoder-Josseline catheter is [place] with the tip in the right pulmonary artery. Right IJ central venous catheter terminates within the cavoatrial junction. Mediastinal drain and left-sided chest tube are present. Endotracheal tube terminates at the aortic knob. NG tube is present which terminates within the gastric fundus. Lungs are clear for degree of inspiration. Bones and soft tissues demonstrate no significant abnormality. Impression: 1. Interval sternotomy. 2. Tube placement and line placement as detailed. 04/02/2017 1:32 PM PROCEDURE INTERPRETED AT [facility] DEPARTMENT OF RADIOLOGY Final Report Signed by: Dr. Yehuda Plummer
[2017-04-02] MEDS: POTASSIUM CHLORIDE RIDER 10 MEQ in PREMIX 1 EACH IV PRN ×4 (13:57→20:49)
[2017-04-02] MEDS: KETOROLAC 30 MG/1 ML VIAL IV SCH ×2 (14:00→18:52)
[2017-04-02 14:42] LABS: ABG HCO3 21.4 MMOL/L (20-26); ABG Oxygen Saturation 98.6 % (95-100); ABG PCO2 31.8 MM HG (35-48); ABG PH 7.445 (7.35-7.45); ABG PO2 181.4 MM HG (80-95); ABG TCO2 22.3 MMOL/L (23-27); Glucose Heart Surgery 200 MG/DL (74-106); Hemoglobin Heart Surgery 11.1 G/DL (14.0-18.0); Potassium Heart/CVR 3.7 MMOL/L (3.5-5.1)
[2017-04-02] MEDS: INSULIN REGULAR 100 UNIT/ML IV PRN ×2 (15:11→17:05)
[2017-04-02 15:53] LABS: ABG HCO3 22.8 MMOL/L (20-26); ABG Oxygen Saturation 99.5 % (95-100); ABG PCO2 33.1 MM HG (35-48); ABG PH 7.426 (7.35-7.45); ABG TCO2 19.8 MMOL/L (23-27); Glucose Heart Surgery 193 MG/DL (74-106); Hematocrit Heart Surgery 30.6 PERCENT (42-52); Hemoglobin Heart Surgery 9.9 G/DL (14.0-18.0); Potassium Heart/CVR 3.9 MMOL/L (3.5-5.1)
--- NOTE | 2017-04-02 16:22 | Hospitalist Progress Note ---
Assessment and Plan (1) S/P CABG (coronary artery bypass graft) Problem details: Three-vessel coronary artery disease; internal mammary graft to the anterior descending coronary artery and saphenous vein graft to the obtuse marginal and right coronary arteries. Status: Acute Current Visit: Yes (2) Diabetes Problem details: Type 2 diabetes mellitus managed postoperatively by following IV insulin protocol. Status: Chronic Current Visit: Yes Qualifiers: Diabetes mellitus type: type 2 (3) Hypertension Problem details: Well-controlled postoperatively Status: Chronic Current Visit: Yes (4) Unspecified sleep apnea Problem details: Outpatient polysomnogram is recommended Status: Chronic Current Visit: Yes (5) Atrial fibrillation Problem details: Paroxysmal; early postoperative period patient is in normal sinus rhythm. Systemic coagulation per consulting lab clerk and cardiothoracic surgery service. Status: Acute Current Visit: Yes Hospitalist: Subjective Interval history: Patient is sedated and intubated after CABG procedure. Exam - Constitutional Vitals: Period Temp Pulse Resp BP Sys/Guzman Pulse Ox Last 24 Hr 97.3 F-98.9 F 66-82 10-18 100-154/57-96 94-100 General appearance: normal weight, other (Orally intubated) - Head Head exam: Present: normal inspection - Neck Neck exam: Present: normal inspection - Respiratory Respiratory exam: Present: clear to auscultation bilaterally. Absent: accessory muscle use, rales - GI/Abdominal GI/Abdominal exam: Present: hypoactive bowel sounds, soft - Skin Skin exam: Present: warm, dry (2 anterior chest wall chest tubes draining pericardial and pleural spaces) Results - Labs CBC & BMP: 04/02/17 11:55 04/02/17 11:55 - Impressions 1) type 2 diabetes mellitus -managed postoperatively with IV insulin protocol Quality Measures - VTE Contraindication to Pharmacological VTE Prophylaxis: High Risk of Bleeding
[2017-04-02 16:55] LABS: ABG Base Excess -2.6 MMOL/L (-2.5-2.5); ABG HCO3 22.3 MMOL/L (20-26); ABG Oxygen Saturation 98.9 % (95-100); ABG PCO2 38.5 MM HG (35-48); ABG PH 7.372 (7.35-7.45); ABG TCO2 20.5 MMOL/L (23-27); Glucose Heart Surgery 185 MG/DL (74-106); Hematocrit Heart Surgery 30.1 PERCENT (42-52); Hemoglobin Heart Surgery 9.7 G/DL (14.0-18.0); Potassium Heart/CVR 3.8 MMOL/L (3.5-5.1)
[2017-04-02] MEDS: AMIODARONE INJ 450 MG in DEXTROSE 5% 241 ML IV SCH (17:41)
[2017-04-02 18:15] LABS: ABG Base Excess -2.8 MMOL/L (-2.5-2.5); ABG Oxygen Saturation 99.1 % (95-100); ABG PCO2 39.2 MM HG (35-48); ABG PH 7.362 (7.35-7.45); ABG TCO2 20.5 MMOL/L (23-27); Glucose Heart Surgery 169 MG/DL (74-106); Hemoglobin Heart Surgery 9.4 G/DL (14.0-18.0); Potassium Heart/CVR 4.3 MMOL/L (3.5-5.1)
[2017-04-02] MEDS: CEFUROXIME INJ 1,500 MG in SODIUM CHLORIDE 0.9% 100 ML IV SCH (18:52)
[2017-04-02] MEDS ORDERED: ALBUMIN 5% 25 GM in PREMIX 1 EACH IV ONE (18:52)
[2017-04-02 20:03] LABS: ABG Base Excess -3.4 MMOL/L (-2.5-2.5); ABG HCO3 21.5 MMOL/L (20-26); ABG Oxygen Saturation 99.1 % (95-100); ABG PCO2 42.4 MM HG (35-48); ABG TCO2 20.6 MMOL/L (23-27); Glucose Heart Surgery 151 MG/DL (74-106); Hematocrit Heart Surgery 29.4 PERCENT (42-52); Hemoglobin Heart Surgery 9.5 G/DL (14.0-18.0); Potassium Heart/CVR 3.7 MMOL/L (3.5-5.1)
[2017-04-02 20:55] LABS: CKMB % 7.3 %
[2017-04-02 20:57] LABS: Troponin I Only 4.21 NG/ML (0.00-0.045)
[2017-04-02] MEDS ORDERED: PANTOPRAZOLE 40 MG TABLET PO SCH (21:00)
[2017-04-03] MEDS ORDERED: FUROSEMIDE 40 MG/4 ML VIAL IV ONE (00:06)
[2017-04-03] MEDS: KETOROLAC 30 MG/1 ML VIAL IV SCH ×2 (00:13→06:02)
[2017-04-03 00:16] LABS: ABG Base Excess -2.9 MMOL/L (-2.5-2.5); ABG HCO3 22.1 MMOL/L (20-26); ABG Oxygen Saturation 97.6 % (95-100); ABG PCO2 39.5 MM HG (35-48); ABG PH 7.366 (7.35-7.45); ABG PO2 114.5 MM HG (80-95); ABG TCO2 23.3 MMOL/L (23-27); Glucose Heart Surgery 99 MG/DL (74-106); Hemoglobin Heart Surgery 12.2 G/DL (14.0-18.0)
[2017-04-03] MEDS: POTASSIUM CHLORIDE RIDER 20 MEQ in PREMIX 1 EACH IV PRN ×2 (00:26→04:24)
[2017-04-03 03:33] LABS: ABG Base Excess -2.5 MMOL/L (-2.5-2.5); ABG HCO3 22.5 MMOL/L (20-26); ABG Oxygen Saturation 97.2 % (95-100); ABG PCO2 39.5 MM HG (35-48); ABG PH 7.373 (7.35-7.45); ABG PO2 105.7 MM HG (80-95); ABG TCO2 23.7 MMOL/L (23-27); Glucose Heart Surgery 116 MG/DL (74-106); Hemoglobin Heart Surgery 11.3 G/DL (14.0-18.0); Potassium Heart/CVR 4.2 MMOL/L (3.5-5.1)
[2017-04-03 03:36] LABS: Basophils % 0.1 % (0.0-0.8); Hematocrit 28.4 VOL% (42.0-52.0); Hemoglobin 9.9 GM/DL (14.0-18.0); Immature Granulocytes % 0.7 %; Immature Granulocytes Absolute 0.08 #; Lymphocytes # 0.5 10*3/uL (1.4-4.0); Lymphocytes % 4.3 % (21.2-54.2); Mean Corpuscular HGB Conc 34.9 GM/DL (32-36); Mean Corpuscular Hemoglobin 30 PG (27-34); Mean Corpuscular Volume 86.9 FL (87-102); Mean Platelet Volume 11.9 FL (9.6-12.0); Monocytes # 0.4 10*3/uL (0.11-0.8); Monocytes % 3.5 % (1.7-12.7); Neutrophils # 10.9 10*3/uL (1.4-7.4); Neutrophils % 91.4 % (38.7-73.9); Platelet Count 109 T/CUMM (130-400); Red Blood Count 3.27 MC/CUMM (3.8-5.5); Red Cell Distribution Width 13.5 % (9.3-17.3); White Blood Count 11.9 T/CUMM (4-12)
[2017-04-03 03:56] LABS: Alanine Aminotransferase 31 U/L (16-61); Albumin 3.6 G/DL (3.4-5.0); Alkaline Phosphatase 42 U/L (45-117); Aspartate Amino Transferase 47 U/L (0-37); Bilirubin,Total < 0.39 MG/DL (0.2-1.0); Blood Urea Nitrogen 23 MG/DL (7-18); Calcium 8.5 MG/DL (8.5-10.1); Glucose 131 MG/DL (74-106); Magnesium 2.1 MG/DL (1.8-2.4); Osmolality,Calculated 288.1 MOS/KG (273-304); Potassium 4.3 MMOL/L (3.5-5.1); Sodium 142 MMOL/L (136-145); Total Protein 5.9 G/DL (6.4-8.3)
[2017-04-03 04:04] LABS: CKMB % 7.8 %
[2017-04-03] MEDS: MORPHINE 2 MG/1 ML SYRINGE IV PRN ×2 (04:07→06:36)
[2017-04-03 04:08] LABS: Band Neutrophils 8 % (0-10); Lymphocytes 6 % (20-55); Platelet Estimate Adequate; Segmented Neutrophils 86 % (50-85); Total Cells Counted 100
[2017-04-03 04:09] LABS: Troponin I Only 4.58 NG/ML (0.00-0.045)
[2017-04-03 05:06] LABS: ABG Base Excess -2.4 MMOL/L (-2.5-2.5); ABG HCO3 21.8 MMOL/L (20-26); ABG Oxygen Saturation 97.6 % (95-100); ABG PCO2 35.4 MM HG (35-48); ABG PH 7.408 (7.35-7.45); ABG TCO2 22.9 MMOL/L (23-27); Glucose Heart Surgery 130 MG/DL (74-106); Hemoglobin Heart Surgery 10.4 G/DL (14.0-18.0); Potassium Heart/CVR 4.8 MMOL/L (3.5-5.1)
[2017-04-03] MEDS ORDERED: METHOCARBAMOL 750 MG TABLET PO PRN (06:11)
--- NOTE | 2017-04-03 06:11 | Cardiothoracic Progress Note ---
Cardiothoracic Subjective Interval history: Patient is awake alert and extubated. He was stable through the night and vital signs are stable this morning and is breathing comfortably postextubation. Cardiac function is adequate with a cardiac output of 4.6 L/ min and minimal enzyme elevation. Blood gases have been satisfactory and urine output likewise has been satisfactory although his creatinine is 1.9 this morning up from 1.7 preop. Chest tube drainage is minimal and I am going to discontinue his chest tubes and I think he can be transferred to telemetry. We will monitor his urine output and creatinine closely. Exam (Progress Note) - Constitutional Vitals: Period Temp Pulse Resp BP Sys/Guzman Pulse Ox Last 24 Hr 96.8 F-99.2 F 66-82 8-16 92-135/52-86 97-100 Result/EKG - Labs CBC & BMP: 04/03/17 03:30 04/03/17 03:25 Labs: Laboratory Results - last 24 hr 04/01/17 04/02/17 04/02/17 11:43 07:20 07:20 WBC RBC Hgb Hct MCV MCH MCHC RDW Plt Count 148 MPV Neut % (Auto) Lymph % (Auto) [place] % (Auto) Eos % (Auto) Baso % (Auto) Neut # (Auto) Lymph # (Auto) [place] # (Auto) Eos # (Auto) Baso # (Auto) Total Counted Immature Gran % Nucleated RBC % Immature Gran # Segmented Neutrophils Band Neutrophils Lymphocytes Nucleated RBCs # Platelet Estimate Pappenheimer Bodies INR PT Patient/Control Mix Circ Anticoag PTT Patient Temperature 37 ABG pH 7.383 ABG pH at Pt Temp 7.383 ABG pCO2 37.3 ABG pCO2 at Pt Temp 37.3 ABG pO2 379.0 H ABG pO2 at Pt Temp 379.0 ABG HCO3 22.4 ABG Total CO2 20.2 L ABG O2 Saturation 99.8 ABG Base Excess -2.4 ABG Sodium 139 VBG pH VBG pCO2 VBG pO2 VBG HCO3 VBG Total CO2 VBG O2 Saturation VBG Base Excess Hemoglobin 10.2 L Hematocrit 31.4 L Potassium 3.8 Glucose 196 H Ionized Calcium 1.14 L FiO2 Sodium Chloride Carbon Dioxide Anion Gap BUN Creatinine GFR Calculation BUN/Creatinine Ratio POC Glucose Calculated Osmolality Calcium Venous Ioniz Calcium Magnesium Total Bilirubin Direct Bilirubin AST ALT Alkaline Phosphatase Total Creatine Kinase CK-MB (CK-2) CK and CKMB Interp Troponin I Total Protein Albumin Globulin Albumin/Globulin Ratio Urine Color Urine Appearance Urine pH Ur Specific [place] Urine Protein Urine Glucose (UA) Urine Ketones Urine Blood Urine Nitrate Urine Bilirubin Urine Urobilinogen Urine Leukocytes Urine WBC Urine Mucus Ur Culture Indicated? Blood Type A POSITIVE Antibody Screen Negative Crossmatch See Detail 04/02/17 04/02/17 04/02/17 07:28 09:10 09:40 WBC RBC Hgb Hct MCV MCH MCHC RDW Plt Count MPV Neut % (Auto) Lymph % (Auto) [place] % (Auto) Eos % (Auto) Baso % (Auto) Neut # (Auto) Lymph # (Auto) [place] # (Auto) Eos # (Auto) Baso # (Auto) Total Counted Immature Gran % Nucleated RBC % Immature Gran # Segmented Neutrophils Band Neutrophils Lymphocytes Nucleated RBCs # Platelet Estimate Pappenheimer Bodies INR PT Patient/Control Mix Circ Anticoag PTT Patient Temperature 34 34 ABG pH ABG pH at Pt Temp 7.397 7.389 ABG pCO2 ABG pCO2 at Pt Temp 39.3 39.3 ABG pO2 ABG pO2 at Pt Temp 30.5 36.2 ABG HCO3 ABG Total CO2 ABG O2 Saturation ABG Base Excess ABG Sodium 130 L 130 L VBG pH 7.354 7.346 VBG pCO2 45.4 45.4 VBG pO2 37.6 44.5 H VBG HCO3 23.9 L 23.4 L VBG Total CO2 24.2 23.5 VBG O2 Saturation 69.5 78.4 VBG Base Excess -0.3 L -0.9 L Hemoglobin 6.8 L D 7.6 L Hematocrit 21.3 L 23.8 L Potassium 5.3 H 6.0 H* Glucose 412 H 338 H Ionized Calcium FiO2 80.00 80.00 Sodium Chloride Carbon Dioxide Anion Gap BUN Creatinine GFR Calculation BUN/Creatinine Ratio POC Glucose Calculated Osmolality Calcium Venous Ioniz Calcium 0.96 L 1.01 L Magnesium Total Bilirubin Direct Bilirubin AST ALT Alkaline Phosphatase Total Creatine Kinase CK-MB (CK-2) CK and CKMB Interp Troponin I Total Protein Albumin Globulin Albumin/Globulin Ratio Urine Color Straw Urine Appearance Clear Urine pH 5.0 Ur Specific [place] 1.008 Urine Protein Negative Urine Glucose (UA) Negative Urine Ketones Negative Urine Blood Small Urine Nitrate Negative Urine Bilirubin Negative Urine Urobilinogen < 2.0 H Urine Leukocytes Negative Urine WBC <1 Urine Mucus Occasional Ur Culture Indicated? Not indicated Blood Type Antibody Screen Crossmatch 04/02/17 04/02/17 04/02/17 10:46 10:46 11:55 WBC 7.6 RBC 2.83 L D Hgb 8.5 L D Hct 24.3 L MCV 85.9 L MCH 30 MCHC 35.0 RDW 13.2 Plt Count 127 L 127 L MPV 11.8 Neut % (Auto) 83.2 H Lymph % (Auto) 8.7 L [place] % (Auto) 6.3 Eos % (Auto) 0.8 Baso % (Auto) 0.3 Neut # (Auto) 6.3 Lymph # (Auto) 0.7 L [place] # (Auto) 0.5 Eos # (Auto) 0.1 Baso # (Auto) 0.0 Total Counted Immature Gran % 0.7 Nucleated RBC % 0.0 Immature Gran # 0.05 Segmented Neutrophils Band Neutrophils Lymphocytes Nucleated RBCs # 0.00 Platelet Estimate Pappenheimer Bodies INR PT Patient/Control Mix Circ Anticoag PTT Patient Temperature 37 ABG pH 7.397 ABG pH at Pt Temp 7.397 ABG pCO2 35.7 ABG pCO2 at Pt Temp 35.7 ABG pO2 154.0 H ABG pO2 at Pt Temp 154.0 ABG HCO3 22.4 ABG Total CO2 20.6 L ABG O2 Saturation 99.5 ABG Base Excess -2.5 ABG Sodium 133 L VBG pH VBG pCO2 VBG pO2 VBG HCO3 VBG Total CO2 VBG O2 Saturation VBG Base Excess Hemoglobin 7.9 L Hematocrit 24.5 L Potassium 4.2 Glucose 287 H Ionized Calcium 1.24 FiO2 Sodium Chloride Carbon Dioxide Anion Gap BUN Creatinine GFR Calculation BUN/Creatinine Ratio POC Glucose Calculated Osmolality Calcium Venous Ioniz Calcium Magnesium Total Bilirubin Direct Bilirubin AST ALT Alkaline Phosphatase Total Creatine Kinase CK-MB (CK-2) CK and CKMB Interp Troponin I Total Protein Albumin Globulin Albumin/Globulin Ratio Urine Color Urine Appearance Urine pH Ur Specific [place] Urine Protein Urine Glucose (UA) Urine Ketones Urine Blood Urine Nitrate Urine Bilirubin Urine Urobilinogen Urine Leukocytes Urine WBC Urine Mucus Ur Culture Indicated? Blood Type Antibody Screen Crossmatch 04/02/17 04/02/17 04/02/17 11:55 11:55 11:55 WBC RBC Hgb Hct MCV MCH MCHC RDW Plt Count MPV Neut % (Auto) Lymph % (Auto) [place] % (Auto) Eos % (Auto) Baso % (Auto) Neut # (Auto) Lymph # (Auto) [place] # (Auto) Eos # (Auto) Baso # (Auto) Total Counted Immature Gran % Nucleated RBC % Immature Gran # Segmented Neutrophils Band Neutrophils Lymphocytes Nucleated RBCs # Platelet Estimate Pappenheimer Bodies INR 1.2 PT Patient/Control Mix 12.7 Circ Anticoag PTT 28.6 Patient Temperature ABG pH 7.410 ABG pH at Pt Temp ABG pCO2 35.0 ABG pCO2 at Pt Temp ABG pO2 120.2 H ABG pO2 at Pt Temp ABG HCO3 21.7 ABG Total CO2 22.8 L ABG O2 Saturation 97.8 ABG Base Excess -2.5 ABG Sodium VBG pH VBG pCO2 VBG pO2 VBG HCO3 VBG Total CO2 VBG O2 Saturation VBG Base Excess Hemoglobin 9.5 L Hematocrit 28.0 L Potassium 3.8 3.7 Glucose 253 H 226 H Ionized Calcium FiO2 Sodium 139 Chloride 105 Carbon Dioxide 22 Anion Gap 15.8 H BUN 20 H Creatinine 1.50 H GFR Calculation 52 BUN/Creatinine Ratio 13.00 POC Glucose Calculated Osmolality 288.5 Calcium 9.4 Venous Ioniz Calcium Magnesium 2.5 H Total Bilirubin 0.50 Direct Bilirubin AST 34 ALT 30 Alkaline Phosphatase 49 Total Creatine Kinase CK-MB (CK-2) CK and CKMB Interp Troponin I Total Protein 5.4 L Albumin 3.1 L Globulin 2.3 Albumin/Globulin Ratio 1.3 Urine Color Urine Appearance Urine pH Ur Specific [place] Urine Protein Urine Glucose (UA) Urine Ketones Urine Blood Urine Nitrate Urine Bilirubin Urine Urobilinogen Urine Leukocytes Urine WBC Urine Mucus Ur Culture Indicated? Blood Type Antibody Screen Crossmatch 04/02/17 04/02/17 04/02/17 11:55 13:20 14:40 WBC RBC Hgb Hct MCV MCH MCHC RDW Plt Count MPV Neut % (Auto) Lymph % (Auto) [place] % (Auto) Eos % (Auto) Baso % (Auto) Neut # (Auto) Lymph # (Auto) [place] # (Auto) Eos # (Auto) Baso # (Auto) Total Counted Immature Gran % Nucleated RBC % Immature Gran # Segmented Neutrophils Band Neutrophils Lymphocytes Nucleated RBCs # Platelet Estimate Pappenheimer Bodies INR PT Patient/Control Mix Circ Anticoag PTT Patient Temperature ABG pH 7.431 7.445 ABG pH at Pt Temp ABG pCO2 33.5 L 31.8 L ABG pCO2 at Pt Temp ABG pO2 179.4 H 181.4 H ABG pO2 at Pt Temp ABG HCO3 21.8 21.4 ABG Total CO2 22.8 L 22.3 L ABG O2 Saturation 98.3 98.6 ABG Base Excess -2.0 -2.0 ABG Sodium VBG pH VBG pCO2 VBG pO2 VBG HCO3 VBG Total CO2 VBG O2 Saturation VBG Base Excess Hemoglobin 9.7 L 11.1 L Hematocrit 29.0 L 33.0 L Potassium 3.6 3.7 Glucose 202 H 200 H Ionized Calcium FiO2 Sodium Chloride Carbon Dioxide Anion Gap BUN Creatinine GFR Calculation BUN/Creatinine Ratio POC Glucose Calculated Osmolality Calcium Venous Ioniz Calcium Magnesium Total Bilirubin Direct Bilirubin AST ALT Alkaline Phosphatase Total Creatine Kinase 194 CK-MB (CK-2) 17.9 H CK and CKMB Interp 9.2 Troponin I 3.950 H Total Protein Albumin Globulin Albumin/Globulin Ratio Urine Color Urine Appearance Urine pH Ur Specific [place] Urine Protein Urine Glucose (UA) Urine Ketones Urine Blood Urine Nitrate Urine Bilirubin Urine Urobilinogen Urine Leukocytes Urine WBC Urine Mucus Ur Culture Indicated? Blood Type Antibody Screen Crossmatch 04/02/17 04/02/17 04/02/17 15:50 16:50 18:07 WBC RBC Hgb Hct MCV MCH MCHC RDW Plt Count MPV Neut % (Auto) Lymph % (Auto) [place] % (Auto) Eos % (Auto) Baso % (Auto) Neut # (Auto) Lymph # (Auto) [place] # (Auto) Eos # (Auto) Baso # (Auto) Total Counted Immature Gran % Nucleated RBC % Immature Gran # Segmented Neutrophils Band Neutrophils Lymphocytes Nucleated RBCs # Platelet Estimate Pappenheimer Bodies INR PT Patient/Control Mix Circ Anticoag PTT Patient Temperature ABG pH 7.426 7.372 7.362 ABG pH at Pt Temp ABG pCO2 33.1 L 38.5 39.2 ABG pCO2 at Pt Temp ABG pO2 154.0 H 121.0 H 127.0 H ABG pO2 at Pt Temp ABG HCO3 22.8 22.3 22.0 ABG Total CO2 19.8 L 20.5 L 20.5 L ABG O2 Saturation 99.5 98.9 99.1 ABG Base Excess -2.0 -2.6 L -2.8 L ABG Sodium VBG pH VBG pCO2 VBG pO2 VBG HCO3 VBG Total CO2 VBG O2 Saturation VBG Base Excess Hemoglobin 9.9 L D 9.7 L 9.4 L Hematocrit 30.6 L 30.1 L 29.0 L Potassium 3.9 3.8 4.3 Glucose 193 H 185 H 169 H Ionized Calcium FiO2 Sodium Chloride Carbon Dioxide Anion Gap BUN Creatinine GFR Calculation BUN/Creatinine Ratio POC Glucose Calculated Osmolality Calcium Venous Ioniz Calcium Magnesium Total Bilirubin Direct Bilirubin AST ALT Alkaline Phosphatase Total Creatine Kinase CK-MB (CK-2) CK and CKMB Interp Troponin I Total Protein Albumin Globulin Albumin/Globulin Ratio Urine Color Urine Appearance Urine pH Ur Specific [place] Urine Protein Urine Glucose (UA) Urine Ketones Urine Blood Urine Nitrate Urine Bilirubin Urine Urobilinogen Urine Leukocytes Urine WBC Urine Mucus Ur Culture Indicated? Blood Type Antibody Screen Crossmatch 04/02/17 04/02/17 04/02/17 18:58 19:50 19:58 WBC RBC Hgb Hct MCV MCH MCHC RDW Plt Count MPV Neut % (Auto) Lymph % (Auto) [place] % (Auto) Eos % (Auto) Baso % (Auto) Neut # (Auto) Lymph # (Auto) [place] # (Auto) Eos # (Auto) Baso # (Auto) Total Counted Immature Gran % Nucleated RBC % Immature Gran # Segmented Neutrophils Band Neutrophils Lymphocytes Nucleated RBCs # Platelet Estimate Pappenheimer Bodies INR PT Patient/Control Mix Circ Anticoag PTT Patient Temperature ABG pH 7.330 L ABG pH at Pt Temp ABG pCO2 42.4 ABG pCO2 at Pt Temp ABG pO2 133.0 H ABG pO2 at Pt Temp ABG HCO3 21.5 ABG Total CO2 20.6 L ABG O2 Saturation 99.1 ABG Base Excess -3.4 L ABG Sodium VBG pH VBG pCO2 VBG pO2 VBG HCO3 VBG Total CO2 VBG O2 Saturation VBG Base Excess Hemoglobin 9.5 L Hematocrit 29.4 L Potassium 3.7 Glucose 151 H Ionized Calcium FiO2 Sodium Chloride Carbon Dioxide Anion Gap BUN Creatinine GFR Calculation BUN/Creatinine Ratio POC Glucose 166 H Calculated Osmolality Calcium Venous Ioniz Calcium Magnesium Total Bilirubin Direct Bilirubin AST ALT Alkaline Phosphatase Total Creatine Kinase 233 D CK-MB (CK-2) 16.9 H CK and CKMB Interp 7.3 Troponin I 4.210 H Total Protein Albumin Globulin Albumin/Globulin Ratio Urine Color Urine Appearance Urine pH Ur Specific [place] Urine Protein Urine Glucose (UA) Urine Ketones Urine Blood Urine Nitrate Urine Bilirubin Urine Urobilinogen Urine Leukocytes Urine WBC Urine Mucus Ur Culture Indicated? Blood Type Antibody Screen Crossmatch 04/02/17 04/02/17 04/02/17 21:01 21:54 23:05 WBC RBC Hgb Hct MCV MCH MCHC RDW Plt Count MPV Neut % (Auto) Lymph % (Auto) [place] % (Auto) Eos % (Auto) Baso % (Auto) Neut # (Auto) Lymph # (Auto) [place] # (Auto) Eos # (Auto) Baso # (Auto) Total Counted Immature Gran % Nucleated RBC % Immature Gran # Segmented Neutrophils Band Neutrophils Lymphocytes Nucleated RBCs # Platelet Estimate Pappenheimer Bodies INR PT Patient/Control Mix Circ Anticoag PTT Patient Temperature ABG pH ABG pH at Pt Temp ABG pCO2 ABG pCO2 at Pt Temp ABG pO2 ABG pO2 at Pt Temp ABG HCO3 ABG Total CO2 ABG O2 Saturation ABG Base Excess ABG Sodium VBG pH VBG pCO2 VBG pO2 VBG HCO3 VBG Total CO2 VBG O2 Saturation VBG Base Excess Hemoglobin Hematocrit Potassium Glucose Ionized Calcium FiO2 Sodium Chloride Carbon Dioxide Anion Gap BUN Creatinine GFR Calculation BUN/Creatinine Ratio POC Glucose 160 H 127 H 130 H Calculated Osmolality Calcium Venous Ioniz Calcium Magnesium Total Bilirubin Direct Bilirubin AST ALT Alkaline Phosphatase Total Creatine Kinase CK-MB (CK-2) CK and CKMB Interp Troponin I Total Protein Albumin Globulin Albumin/Globulin Ratio Urine Color Urine Appearance Urine pH Ur Specific [place] Urine Protein Urine Glucose (UA) Urine Ketones Urine Blood Urine Nitrate Urine Bilirubin Urine Urobilinogen Urine Leukocytes Urine WBC Urine Mucus Ur Culture Indicated? Blood Type Antibody Screen Crossmatch 04/03/17 04/03/17 04/03/17 00:05 01:07 01:58 WBC RBC Hgb Hct MCV MCH MCHC RDW Plt Count MPV Neut % (Auto) Lymph % (Auto) [place] % (Auto) Eos % (Auto) Baso % (Auto) Neut # (Auto) Lymph # (Auto) [place] # (Auto) Eos # (Auto) Baso # (Auto) Total Counted Immature Gran % Nucleated RBC % Immature Gran # Segmented Neutrophils Band Neutrophils Lymphocytes Nucleated RBCs # Platelet Estimate Pappenheimer Bodies INR PT Patient/Control Mix Circ Anticoag PTT Patient Temperature ABG pH 7.366 ABG pH at Pt Temp ABG pCO2 39.5 ABG pCO2 at Pt Temp ABG pO2 114.5 H ABG pO2 at Pt Temp ABG HCO3 22.1 ABG Total CO2 23.3 ABG O2 Saturation 97.6 ABG Base Excess -2.9 L ABG Sodium VBG pH VBG pCO2 VBG pO2 VBG HCO3 VBG Total CO2 VBG O2 Saturation VBG Base Excess Hemoglobin 12.2 L Hematocrit 36.0 L Potassium 4.0 Glucose 99 Ionized Calcium FiO2 Sodium Chloride Carbon Dioxide Anion Gap BUN Creatinine GFR Calculation BUN/Creatinine Ratio POC Glucose 115 H 131 H Calculated Osmolality Calcium Venous Ioniz Calcium Magnesium Total Bilirubin Direct Bilirubin AST ALT Alkaline Phosphatase Total Creatine Kinase CK-MB (CK-2) CK and CKMB Interp Troponin I Total Protein Albumin Globulin Albumin/Globulin Ratio Urine Color Urine Appearance Urine pH Ur Specific [place] Urine Protein Urine Glucose (UA) Urine Ketones Urine Blood Urine Nitrate Urine Bilirubin Urine Urobilinogen Urine Leukocytes Urine WBC Urine Mucus Ur Culture Indicated? Blood Type Antibody Screen Crossmatch 04/03/17 04/03/17 04/03/17 02:57 03:25 03:25 WBC RBC Hgb Hct MCV MCH MCHC RDW Plt Count MPV Neut % (Auto) Lymph % (Auto) [place] % (Auto) Eos % (Auto) Baso % (Auto) Neut # (Auto) Lymph # (Auto) [place] # (Auto) Eos # (Auto) Baso # (Auto) Total Counted Immature Gran % Nucleated RBC % Immature Gran # Segmented Neutrophils Band Neutrophils Lymphocytes Nucleated RBCs # Platelet Estimate Pappenheimer Bodies INR PT Patient/Control Mix Circ Anticoag PTT Patient Temperature ABG pH ABG pH at Pt Temp ABG pCO2 ABG pCO2 at Pt Temp ABG pO2 ABG pO2 at Pt Temp ABG HCO3 ABG Total CO2 ABG O2 Saturation ABG Base Excess ABG Sodium VBG pH VBG pCO2 VBG pO2 VBG HCO3 VBG Total CO2 VBG O2 Saturation VBG Base Excess Hemoglobin Hematocrit Potassium 4.3 Glucose 131 H Ionized Calcium FiO2 Sodium 142 Chloride 109 H Carbon Dioxide 23 Anion Gap 14.3 BUN 23 H Creatinine 1.90 H GFR Calculation 39 BUN/Creatinine Ratio 12.00 POC Glucose 136 H Calculated Osmolality 288.1 Calcium 8.5 Venous Ioniz Calcium Magnesium 2.1 Total Bilirubin < 0.39 Direct Bilirubin 0.20 AST 47 H ALT 31 Alkaline Phosphatase 42 L Total Creatine Kinase 397 H D CK-MB (CK-2) 30.9 H D CK and CKMB Interp 7.8 Troponin I 4.580 H Total Protein 5.9 L Albumin 3.6 Globulin 2.3 Albumin/Globulin Ratio 1.5 Urine Color Urine Appearance Urine pH Ur Specific [place] Urine Protein Urine Glucose (UA) Urine Ketones Urine Blood Urine Nitrate Urine Bilirubin Urine Urobilinogen Urine Leukocytes Urine WBC Urine Mucus Ur Culture Indicated? Blood Type Antibody Screen Crossmatch 04/03/17 04/03/17 04/03/17 03:25 03:30 05:05 WBC 11.9 D RBC 3.27 L Hgb 9.9 L Hct 28.4 L MCV 86.9 L MCH 30 MCHC 34.9 RDW 13.5 Plt Count 109 L MPV 11.9 Neut % (Auto) 91.4 H Lymph % (Auto) 4.3 L [place] % (Auto) 3.5 Eos % (Auto) 0.0 Baso % (Auto) 0.1 Neut # (Auto) 10.9 H Lymph # (Auto) 0.5 L [place] # (Auto) 0.4 Eos # (Auto) 0.0 Baso # (Auto) 0.0 Total Counted 100 Immature Gran % 0.7 Nucleated RBC % 0.0 Immature Gran # 0.08 Segmented Neutrophils 86 H Band Neutrophils 8 Lymphocytes 6 L Nucleated RBCs # 0.00 Platelet Estimate Adequate Pappenheimer Bodies [employer]er INR PT Patient/Control Mix Circ Anticoag PTT Patient Temperature ABG pH 7.373 7.408 ABG pH at Pt Temp ABG pCO2 39.5 35.4 ABG pCO2 at Pt Temp ABG pO2 105.7 H 117.0 H ABG pO2 at Pt Temp ABG HCO3 22.5 21.8 ABG Total CO2 23.7 22.9 L ABG O2 Saturation 97.2 97.6 ABG Base Excess -2.5 -2.4 ABG Sodium VBG pH VBG pCO2 VBG pO2 VBG HCO3 VBG Total CO2 VBG O2 Saturation VBG Base Excess Hemoglobin 11.3 L 10.4 L Hematocrit 33.0 L 31.0 L Potassium 4.2 4.8 Glucose 116 H 130 H Ionized Calcium FiO2 Sodium Chloride Carbon Dioxide Anion Gap BUN Creatinine GFR Calculation BUN/Creatinine Ratio POC Glucose Calculated Osmolality Calcium Venous Ioniz Calcium Magnesium Total Bilirubin Direct Bilirubin AST ALT Alkaline Phosphatase Total Creatine Kinase CK-MB (CK-2) CK and CKMB Interp Troponin I Total Protein Albumin Globulin Albumin/Globulin Ratio Urine Color Urine Appearance Urine pH Ur Specific [place] Urine Protein Urine Glucose (UA) Urine Ketones Urine Blood Urine Nitrate Urine Bilirubin Urine Urobilinogen Urine Leukocytes Urine WBC Urine Mucus Ur Culture Indicated? Blood Type Antibody Screen Crossmatch 04/03/17 05:59 WBC RBC Hgb Hct MCV MCH MCHC RDW Plt Count MPV Neut % (Auto) Lymph % (Auto) [place] % (Auto) Eos % (Auto) Baso % (Auto) Neut # (Auto) Lymph # (Auto) [place] # (Auto) Eos # (Auto) Baso # (Auto) Total Counted Immature Gran % Nucleated RBC % Immature Gran # Segmented Neutrophils Band Neutrophils Lymphocytes Nucleated RBCs # Platelet Estimate Pappenheimer Bodies INR PT Patient/Control Mix Circ Anticoag PTT Patient Temperature ABG pH ABG pH at Pt Temp ABG pCO2 ABG pCO2 at Pt Temp ABG pO2 ABG pO2 at Pt Temp ABG HCO3 ABG Total CO2 ABG O2 Saturation ABG Base Excess ABG Sodium VBG pH VBG pCO2 VBG pO2 VBG HCO3 VBG Total CO2 VBG O2 Saturation VBG Base Excess Hemoglobin Hematocrit Potassium Glucose Ionized Calcium FiO2 Sodium Chloride Carbon Dioxide Anion Gap BUN Creatinine GFR Calculation BUN/Creatinine Ratio POC Glucose 150 H Calculated Osmolality Calcium Venous Ioniz Calcium Magnesium Total Bilirubin Direct Bilirubin AST ALT Alkaline Phosphatase Total Creatine Kinase CK-MB (CK-2) CK and CKMB Interp Troponin I Total Protein Albumin Globulin Albumin/Globulin Ratio Urine Color Urine Appearance Urine pH Ur Specific [place] Urine Protein Urine Glucose (UA) Urine Ketones Urine Blood Urine Nitrate Urine Bilirubin Urine Urobilinogen Urine Leukocytes Urine WBC Urine Mucus Ur Culture Indicated? Blood Type Antibody Screen Crossmatch Quality Measures - VTE Contraindication to Pharmacological VTE Prophylaxis: High Risk of Bleeding
[2017-04-03] MEDS ORDERED: MORPHINE 2 MG/1 ML SYRINGE IV PRN (06:14)
[2017-04-03] MEDS ORDERED: ALUMINUM/MAGNES/SIMETH MAX STR 30 ML UDCUP PO PRN (06:14)
[2017-04-03] MEDS ORDERED: GLUCAGON 1 MG VIAL IM PRN ×2 (06:14→08:25)
[2017-04-03] MEDS ORDERED: POTASSIUM CHLORIDE 20 MEQ TABLET PO PRN (06:14)
[2017-04-03] MEDS ORDERED: MAGNESIUM SULF RIDER 4 GM in PREMIX 1 EACH IV PRN (06:14)
[2017-04-03] MEDS ORDERED: MAGNESIUM HYDROXIDE SUSP 30 ML UDCUP PO PRN (06:14)
[2017-04-03] MEDS ORDERED: MAGNESIUM SULF RIDER 2 GM in PREMIX 1 EACH IV PRN (06:14)
[2017-04-03] MEDS ORDERED: DEXTROSE 50% 25 GM/50 ML VIAL IV PRN ×2 (06:14→08:25)
[2017-04-03] MEDS ORDERED: diphenhydrAMINE CAP 25 MG CAPSULE PO PRN (06:28)
[2017-04-03] MEDS ORDERED: DIPHENOXYLATE/ATROPINE 2.5-0.025 MG TABLET PO PRN (06:28)
[2017-04-03 06:40] LABS: ABG Base Excess -3.1 MMOL/L (-2.5-2.5); ABG HCO3 21.9 MMOL/L (20-26); ABG Oxygen Saturation 98.2 % (95-100); ABG PCO2 40.3 MM HG (35-48); ABG PH 7.351 (7.35-7.45); ABG TCO2 20.4 MMOL/L (23-27); Glucose Heart Surgery 164 MG/DL (74-106); Hematocrit Heart Surgery 30.9 PERCENT (42-52); Potassium Heart/CVR 4.2 MMOL/L (3.5-5.1)
[2017-04-03] MEDS: SODIUM CHLOR 0.45% KCL 20 MEQ 20 MEQ/1,000 ML BAG IV SCH (06:59)
[2017-04-03] MEDS: CEFUROXIME INJ 1,500 MG in SODIUM CHLORIDE 0.9% 100 ML IV SCH (06:59)
--- NOTE | 2017-04-03 07:35 | XRay Report ---
XR chest 1V portable Indication: Status post chest tube removal. Comparison: Chest x-ray 04/02/2017. Technique: Portable AP chest was performed. Findings: Chest tube and mediastinal drain are no longer identified. Endotracheal tube is been removed. NG tube remains present. [place] catheter is [place] within the right pulmonary artery. Right IJ central venous catheter is stable. Minimal atelectasis in the lower left chest is present. Lungs are otherwise clear. No pneumothorax is present. Impression: 1. No pneumothorax is demonstrated following removal of left-sided chest tube. Minimal atelectasis of the mid to lower left lung is noted. 2. Interval extubation. 04/03/2017 7:30 AM PROCEDURE INTERPRETED AT [facility] DEPARTMENT OF RADIOLOGY Final Report Signed by: Dr. Yehuda Plummer
--- NOTE | 2017-04-03 07:54 | EKG Report ---
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
--- NOTE | 2017-04-03 08:58 | Cardiology Progress Note ---
Assessment and Plan (1) Atrial fibrillation Problem details: Paroxysmal; early postoperative period patient is in normal sinus rhythm. Systemic coagulation per consulting forestry and wildlife manager and cardiothoracic surgery service. Status: Acute Assessment and plan: 66-year-old male, CAD, atrial fibrillation, hypertension, hyperlipidemia, type 2 diabetes mellitus. Preserved LVEF. 04/02: CABG x3. -Cont ASA, Coreg, statin/gemfibrozil/O3 for CAD -LVEF was preserved. -BP well controlled. -Switch amiodarone to po, 200 mg bid. May cut back to 200 mg daily in 1 week, on 04/10 -May stop diltiazem if BP trends lower -No active bleeding. Anemia improved after transfusion. High risk for thromboembolic complications, AF->SR during surgery. Start full anticoagulation with Lovenox 80 mg twice daily, switch back to Eliquis, if no bleeding issues. CHADSVASC 4. Current Visit: Yes (2) Diabetes Problem details: Type 2 diabetes mellitus managed postoperatively by following IV insulin protocol. Status: Chronic Current Visit: Yes Qualifiers: Diabetes mellitus type: type 2 (3) Hypertension Problem details: Well-controlled postoperatively Status: Chronic Current Visit: Yes (4) Coronary artery disease Status: Acute Current Visit: Yes (5) Unspecified sleep apnea Problem details: Outpatient polysomnogram is recommended Status: Chronic Current Visit: Yes Cardiology - PN: Subj Interval history: He is feeling better. Chest tubes were discontinued. Hematocrit improved after transfusion. He remains in sinus rhythm, blood pressure stable. Exam (Progress Note) - Constitutional Vitals: Period Temp Pulse Resp BP Sys/Guzman Pulse Ox Last 24 Hr 96.8 F-99.2 F 66-82 8-16 92-144/52-86 97-100 General appearance: normal weight, no acute distress - Head Head exam: Present: normal inspection, normocephalic - Eye Eye exam: Absent: conjunctival injection, scleral icterus Pupils: Present: normal accommodation. Absent: dilated - ENT ENT exam: Present: normal external ear exam - Neck Neck exam: Present: other (tlc) - Respiratory Respiratory exam: Present: decreased breath sounds - Cardiovascular Cardiovascular exam: Present: regular rate and rhythm. Absent: JVD - GI/Abdominal GI/Abdominal exam: Present: hypoactive bowel sounds. Absent: distended - Extremities Exam Extremities exam: Present: normal inspection, normal capillary refill, other ( Dry bandage). Absent: edema - Neurological Exam Neurological exam: Present: alert, oriented X3 - Psychiatric Psychiatric exam: Present: normal affect, normal mood - Skin Skin exam: Present: normal color, warm. Absent: cyanosis Result/EKG - Labs CBC & BMP: 04/03/17 03:30 04/03/17 03:25 Lab Results: I have reviewed the past 24 hour labs Labs: Laboratory Results - last 24 hr 04/01/17 04/02/17 04/02/17 11:43 09:10 09:40 WBC RBC Hgb Hct MCV MCH MCHC RDW Plt Count MPV Neut % (Auto) Lymph % (Auto) Wolfe % (Auto) Eos % (Auto) Baso % (Auto) Neut # (Auto) Lymph # (Auto) Wolfe # (Auto) Eos # (Auto) Baso # (Auto) Total Counted Immature Gran % Nucleated RBC % Immature Gran # Segmented Neutrophils Band Neutrophils Lymphocytes Nucleated RBCs # Platelet Estimate Pappenheimer Bodies INR PT Patient/Control Mix Circ Anticoag PTT Patient Temperature 34 34 ABG pH ABG pH at Pt Temp 7.397 7.389 ABG pCO2 ABG pCO2 at Pt Temp 39.3 39.3 ABG pO2 ABG pO2 at Pt Temp 30.5 36.2 ABG HCO3 ABG Total CO2 ABG O2 Saturation ABG Base Excess ABG Sodium 130 L 130 L VBG pH 7.354 7.346 VBG pCO2 45.4 45.4 VBG pO2 37.6 44.5 H VBG HCO3 23.9 L 23.4 L VBG Total CO2 24.2 23.5 VBG O2 Saturation 69.5 78.4 VBG Base Excess -0.3 L -0.9 L Hemoglobin 6.8 L D 7.6 L Hematocrit 21.3 L 23.8 L Potassium 5.3 H 6.0 H* Glucose 412 H 338 H Ionized Calcium FiO2 80.00 80.00 Sodium Chloride Carbon Dioxide Anion Gap BUN Creatinine GFR Calculation BUN/Creatinine Ratio POC Glucose Calculated Osmolality Calcium Venous Ioniz Calcium 0.96 L 1.01 L Magnesium Total Bilirubin Direct Bilirubin AST ALT Alkaline Phosphatase Total Creatine Kinase CK-MB (CK-2) CK and CKMB Interp Troponin I Total Protein Albumin Globulin Albumin/Globulin Ratio Blood Type A POSITIVE Antibody Screen Negative Crossmatch See Detail 04/02/17 04/02/17 04/02/17 10:46 10:46 11:55 WBC 7.6 RBC 2.83 L D Hgb 8.5 L D Hct 24.3 L MCV 85.9 L MCH 30 MCHC 35.0 RDW 13.2 Plt Count 127 L 127 L MPV 11.8 Neut % (Auto) 83.2 H Lymph % (Auto) 8.7 L Wolfe % (Auto) 6.3 Eos % (Auto) 0.8 Baso % (Auto) 0.3 Neut # (Auto) 6.3 Lymph # (Auto) 0.7 L Wolfe # (Auto) 0.5 Eos # (Auto) 0.1 Baso # (Auto) 0.0 Total Counted Immature Gran % 0.7 Nucleated RBC % 0.0 Immature Gran # 0.05 Segmented Neutrophils Band Neutrophils Lymphocytes Nucleated RBCs # 0.00 Platelet Estimate Pappenheimer Bodies INR PT Patient/Control Mix Circ Anticoag PTT Patient Temperature 37 ABG pH 7.397 ABG pH at Pt Temp 7.397 ABG pCO2 35.7 ABG pCO2 at Pt Temp 35.7 ABG pO2 154.0 H ABG pO2 at Pt Temp 154.0 ABG HCO3 22.4 ABG Total CO2 20.6 L ABG O2 Saturation 99.5 ABG Base Excess -2.5 ABG Sodium 133 L VBG pH VBG pCO2 VBG pO2 VBG HCO3 VBG Total CO2 VBG O2 Saturation VBG Base Excess Hemoglobin 7.9 L Hematocrit 24.5 L Potassium 4.2 Glucose 287 H Ionized Calcium 1.24 FiO2 Sodium Chloride Carbon Dioxide Anion Gap BUN Creatinine GFR Calculation BUN/Creatinine Ratio POC Glucose Calculated Osmolality Calcium Venous Ioniz Calcium Magnesium Total Bilirubin Direct Bilirubin AST ALT Alkaline Phosphatase Total Creatine Kinase CK-MB (CK-2) CK and CKMB Interp Troponin I Total Protein Albumin Globulin Albumin/Globulin Ratio Blood Type Antibody Screen Crossmatch 04/02/17 04/02/17 04/02/17 11:55 11:55 11:55 WBC RBC Hgb Hct MCV MCH MCHC RDW Plt Count MPV Neut % (Auto) Lymph % (Auto) Wolfe % (Auto) Eos % (Auto) Baso % (Auto) Neut # (Auto) Lymph # (Auto) Wolfe # (Auto) Eos # (Auto) Baso # (Auto) Total Counted Immature Gran % Nucleated RBC % Immature Gran # Segmented Neutrophils Band Neutrophils Lymphocytes Nucleated RBCs # Platelet Estimate Pappenheimer Bodies INR 1.2 PT Patient/Control Mix 12.7 Circ Anticoag PTT 28.6 Patient Temperature ABG pH 7.410 ABG pH at Pt Temp ABG pCO2 35.0 ABG pCO2 at Pt Temp ABG pO2 120.2 H ABG pO2 at Pt Temp ABG HCO3 21.7 ABG Total CO2 22.8 L ABG O2 Saturation 97.8 ABG Base Excess -2.5 ABG Sodium VBG pH VBG pCO2 VBG pO2 VBG HCO3 VBG Total CO2 VBG O2 Saturation VBG Base Excess Hemoglobin 9.5 L Hematocrit 28.0 L Potassium 3.8 3.7 Glucose 253 H 226 H Ionized Calcium FiO2 Sodium 139 Chloride 105 Carbon Dioxide 22 Anion Gap 15.8 H BUN 20 H Creatinine 1.50 H GFR Calculation 52 BUN/Creatinine Ratio 13.00 POC Glucose Calculated Osmolality 288.5 Calcium 9.4 Venous Ioniz Calcium Magnesium 2.5 H Total Bilirubin 0.50 Direct Bilirubin AST 34 ALT 30 Alkaline Phosphatase 49 Total Creatine Kinase CK-MB (CK-2) CK and CKMB Interp Troponin I Total Protein 5.4 L Albumin 3.1 L Globulin 2.3 Albumin/Globulin Ratio 1.3 Blood Type Antibody Screen Crossmatch 04/02/17 04/02/17 04/02/17 11:55 13:20 14:40 WBC RBC Hgb Hct MCV MCH MCHC RDW Plt Count MPV Neut % (Auto) Lymph % (Auto) Wolfe % (Auto) Eos % (Auto) Baso % (Auto) Neut # (Auto) Lymph # (Auto) Wolfe # (Auto) Eos # (Auto) Baso # (Auto) Total Counted Immature Gran % Nucleated RBC % Immature Gran # Segmented Neutrophils Band Neutrophils Lymphocytes Nucleated RBCs # Platelet Estimate Pappenheimer Bodies INR PT Patient/Control Mix Circ Anticoag PTT Patient Temperature ABG pH 7.431 7.445 ABG pH at Pt Temp ABG pCO2 33.5 L 31.8 L ABG pCO2 at Pt Temp ABG pO2 179.4 H 181.4 H ABG pO2 at Pt Temp ABG HCO3 21.8 21.4 ABG Total CO2 22.8 L 22.3 L ABG O2 Saturation 98.3 98.6 ABG Base Excess -2.0 -2.0 ABG Sodium VBG pH VBG pCO2 VBG pO2 VBG HCO3 VBG Total CO2 VBG O2 Saturation VBG Base Excess Hemoglobin 9.7 L 11.1 L Hematocrit 29.0 L 33.0 L Potassium 3.6 3.7 Glucose 202 H 200 H Ionized Calcium FiO2 Sodium Chloride Carbon Dioxide Anion Gap BUN Creatinine GFR Calculation BUN/Creatinine Ratio POC Glucose Calculated Osmolality Calcium Venous Ioniz Calcium Magnesium Total Bilirubin Direct Bilirubin AST ALT Alkaline Phosphatase Total Creatine Kinase 194 CK-MB (CK-2) 17.9 H CK and CKMB Interp 9.2 Troponin I 3.950 H Total Protein Albumin Globulin Albumin/Globulin Ratio Blood Type Antibody Screen Crossmatch 04/02/17 04/02/17 04/02/17 15:50 16:50 18:07 WBC RBC Hgb Hct MCV MCH MCHC RDW Plt Count MPV Neut % (Auto) Lymph % (Auto) Wolfe % (Auto) Eos % (Auto) Baso % (Auto) Neut # (Auto) Lymph # (Auto) Wolfe # (Auto) Eos # (Auto) Baso # (Auto) Total Counted Immature Gran % Nucleated RBC % Immature Gran # Segmented Neutrophils Band Neutrophils Lymphocytes Nucleated RBCs # Platelet Estimate Pappenheimer Bodies INR PT Patient/Control Mix Circ Anticoag PTT Patient Temperature ABG pH 7.426 7.372 7.362 ABG pH at Pt Temp ABG pCO2 33.1 L 38.5 39.2 ABG pCO2 at Pt Temp ABG pO2 154.0 H 121.0 H 127.0 H ABG pO2 at Pt Temp ABG HCO3 22.8 22.3 22.0 ABG Total CO2 19.8 L 20.5 L 20.5 L ABG O2 Saturation 99.5 98.9 99.1 ABG Base Excess -2.0 -2.6 L -2.8 L ABG Sodium VBG pH VBG pCO2 VBG pO2 VBG HCO3 VBG Total CO2 VBG O2 Saturation VBG Base Excess Hemoglobin 9.9 L D 9.7 L 9.4 L Hematocrit 30.6 L 30.1 L 29.0 L Potassium 3.9 3.8 4.3 Glucose 193 H 185 H 169 H Ionized Calcium FiO2 Sodium Chloride Carbon Dioxide Anion Gap BUN Creatinine GFR Calculation BUN/Creatinine Ratio POC Glucose Calculated Osmolality Calcium Venous Ioniz Calcium Magnesium Total Bilirubin Direct Bilirubin AST ALT Alkaline Phosphatase Total Creatine Kinase CK-MB (CK-2) CK and CKMB Interp Troponin I Total Protein Albumin Globulin Albumin/Globulin Ratio Blood Type Antibody Screen Crossmatch 04/02/17 04/02/17 04/02/17 18:58 19:50 19:58 WBC RBC Hgb Hct MCV MCH MCHC RDW Plt Count MPV Neut % (Auto) Lymph % (Auto) Wolfe % (Auto) Eos % (Auto) Baso % (Auto) Neut # (Auto) Lymph # (Auto) Wolfe # (Auto) Eos # (Auto) Baso # (Auto) Total Counted Immature Gran % Nucleated RBC % Immature Gran # Segmented Neutrophils Band Neutrophils Lymphocytes Nucleated RBCs # Platelet Estimate Pappenheimer Bodies INR PT Patient/Control Mix Circ Anticoag PTT Patient Temperature ABG pH 7.330 L ABG pH at Pt Temp ABG pCO2 42.4 ABG pCO2 at Pt Temp ABG pO2 133.0 H ABG pO2 at Pt Temp ABG HCO3 21.5 ABG Total CO2 20.6 L ABG O2 Saturation 99.1 ABG Base Excess -3.4 L ABG Sodium VBG pH VBG pCO2 VBG pO2 VBG HCO3 VBG Total CO2 VBG O2 Saturation VBG Base Excess Hemoglobin 9.5 L Hematocrit 29.4 L Potassium 3.7 Glucose 151 H Ionized Calcium FiO2 Sodium Chloride Carbon Dioxide Anion Gap BUN Creatinine GFR Calculation BUN/Creatinine Ratio POC Glucose 166 H Calculated Osmolality Calcium Venous Ioniz Calcium Magnesium Total Bilirubin Direct Bilirubin AST ALT Alkaline Phosphatase Total Creatine Kinase 233 D CK-MB (CK-2) 16.9 H CK and CKMB Interp 7.3 Troponin I 4.210 H Total Protein Albumin Globulin Albumin/Globulin Ratio Blood Type Antibody Screen Crossmatch 04/02/17 04/02/17 04/02/17 21:01 21:54 23:05 WBC RBC Hgb Hct MCV MCH MCHC RDW Plt Count MPV Neut % (Auto) Lymph % (Auto) Wolfe % (Auto) Eos % (Auto) Baso % (Auto) Neut # (Auto) Lymph # (Auto) Wolfe # (Auto) Eos # (Auto) Baso # (Auto) Total Counted Immature Gran % Nucleated RBC % Immature Gran # Segmented Neutrophils Band Neutrophils Lymphocytes Nucleated RBCs # Platelet Estimate Pappenheimer Bodies INR PT Patient/Control Mix Circ Anticoag PTT Patient Temperature ABG pH ABG pH at Pt Temp ABG pCO2 ABG pCO2 at Pt Temp ABG pO2 ABG pO2 at Pt Temp ABG HCO3 ABG Total CO2 ABG O2 Saturation ABG Base Excess ABG Sodium VBG pH VBG pCO2 VBG pO2 VBG HCO3 VBG Total CO2 VBG O2 Saturation VBG Base Excess Hemoglobin Hematocrit Potassium Glucose Ionized Calcium FiO2 Sodium Chloride Carbon Dioxide Anion Gap BUN Creatinine GFR Calculation BUN/Creatinine Ratio POC Glucose 160 H 127 H 130 H Calculated Osmolality Calcium Venous Ioniz Calcium Magnesium Total Bilirubin Direct Bilirubin AST ALT Alkaline Phosphatase Total Creatine Kinase CK-MB (CK-2) CK and CKMB Interp Troponin I Total Protein Albumin Globulin Albumin/Globulin Ratio Blood Type Antibody Screen Crossmatch 04/03/17 04/03/17 04/03/17 00:05 01:07 01:58 WBC RBC Hgb Hct MCV MCH MCHC RDW Plt Count MPV Neut % (Auto) Lymph % (Auto) Wolfe % (Auto) Eos % (Auto) Baso % (Auto) Neut # (Auto) Lymph # (Auto) Wolfe # (Auto) Eos # (Auto) Baso # (Auto) Total Counted Immature Gran % Nucleated RBC % Immature Gran # Segmented Neutrophils Band Neutrophils Lymphocytes Nucleated RBCs # Platelet Estimate Pappenheimer Bodies INR PT Patient/Control Mix Circ Anticoag PTT Patient Temperature ABG pH 7.366 ABG pH at Pt Temp ABG pCO2 39.5 ABG pCO2 at Pt Temp ABG pO2 114.5 H ABG pO2 at Pt Temp ABG HCO3 22.1 ABG Total CO2 23.3 ABG O2 Saturation 97.6 ABG Base Excess -2.9 L ABG Sodium VBG pH VBG pCO2 VBG pO2 VBG HCO3 VBG Total CO2 VBG O2 Saturation VBG Base Excess Hemoglobin 12.2 L Hematocrit 36.0 L Potassium 4.0 Glucose 99 Ionized Calcium FiO2 Sodium Chloride Carbon Dioxide Anion Gap BUN Creatinine GFR Calculation BUN/Creatinine Ratio POC Glucose 115 H 131 H Calculated Osmolality Calcium Venous Ioniz Calcium Magnesium Total Bilirubin Direct Bilirubin AST ALT Alkaline Phosphatase Total Creatine Kinase CK-MB (CK-2) CK and CKMB Interp Troponin I Total Protein Albumin Globulin Albumin/Globulin Ratio Blood Type Antibody Screen Crossmatch 04/03/17 04/03/17 04/03/17 02:57 03:25 03:25 WBC RBC Hgb Hct MCV MCH MCHC RDW Plt Count MPV Neut % (Auto) Lymph % (Auto) Wolfe % (Auto) Eos % (Auto) Baso % (Auto) Neut # (Auto) Lymph # (Auto) Wolfe # (Auto) Eos # (Auto) Baso # (Auto) Total Counted Immature Gran % Nucleated RBC % Immature Gran # Segmented Neutrophils Band Neutrophils Lymphocytes Nucleated RBCs # Platelet Estimate Pappenheimer Bodies INR PT Patient/Control Mix Circ Anticoag PTT Patient Temperature ABG pH ABG pH at Pt Temp ABG pCO2 ABG pCO2 at Pt Temp ABG pO2 ABG pO2 at Pt Temp ABG HCO3 ABG Total CO2 ABG O2 Saturation ABG Base Excess ABG Sodium VBG pH VBG pCO2 VBG pO2 VBG HCO3 VBG Total CO2 VBG O2 Saturation VBG Base Excess Hemoglobin Hematocrit Potassium 4.3 Glucose 131 H Ionized Calcium FiO2 Sodium 142 Chloride 109 H Carbon Dioxide 23 Anion Gap 14.3 BUN 23 H Creatinine 1.90 H GFR Calculation 39 BUN/Creatinine Ratio 12.00 POC Glucose 136 H Calculated Osmolality 288.1 Calcium 8.5 Venous Ioniz Calcium Magnesium 2.1 Total Bilirubin < 0.39 Direct Bilirubin 0.20 AST 47 H ALT 31 Alkaline Phosphatase 42 L Total Creatine Kinase 397 H D CK-MB (CK-2) 30.9 H D CK and CKMB Interp 7.8 Troponin I 4.580 H Total Protein 5.9 L Albumin 3.6 Globulin 2.3 Albumin/Globulin Ratio 1.5 Blood Type Antibody Screen Crossmatch 04/03/17 04/03/17 04/03/17 03:25 03:30 05:05 WBC 11.9 D RBC 3.27 L Hgb 9.9 L Hct 28.4 L MCV 86.9 L MCH 30 MCHC 34.9 RDW 13.5 Plt Count 109 L MPV 11.9 Neut % (Auto) 91.4 H Lymph % (Auto) 4.3 L Wolfe % (Auto) 3.5 Eos % (Auto) 0.0 Baso % (Auto) 0.1 Neut # (Auto) 10.9 H Lymph # (Auto) 0.5 L Wolfe # (Auto) 0.4 Eos # (Auto) 0.0 Baso # (Auto) 0.0 Total Counted 100 Immature Gran % 0.7 Nucleated RBC % 0.0 Immature Gran # 0.08 Segmented Neutrophils 86 H Band Neutrophils 8 Lymphocytes 6 L Nucleated RBCs # 0.00 Platelet Estimate Adequate Pappenheimer Bodies Mapping Specialist INR PT Patient/Control Mix Circ Anticoag PTT Patient Temperature ABG pH 7.373 7.408 ABG pH at Pt Temp ABG pCO2 39.5 35.4 ABG pCO2 at Pt Temp ABG pO2 105.7 H 117.0 H ABG pO2 at Pt Temp ABG HCO3 22.5 21.8 ABG Total CO2 23.7 22.9 L ABG O2 Saturation 97.2 97.6 ABG Base Excess -2.5 -2.4 ABG Sodium VBG pH VBG pCO2 VBG pO2 VBG HCO3 VBG Total CO2 VBG O2 Saturation VBG Base Excess Hemoglobin 11.3 L 10.4 L Hematocrit 33.0 L 31.0 L Potassium 4.2 4.8 Glucose 116 H 130 H Ionized Calcium FiO2 Sodium Chloride Carbon Dioxide Anion Gap BUN Creatinine GFR Calculation BUN/Creatinine Ratio POC Glucose Calculated Osmolality Calcium Venous Ioniz Calcium Magnesium Total Bilirubin Direct Bilirubin AST ALT Alkaline Phosphatase Total Creatine Kinase CK-MB (CK-2) CK and CKMB Interp Troponin I Total Protein Albumin Globulin Albumin/Globulin Ratio Blood Type Antibody Screen Crossmatch 04/03/17 04/03/17 05:59 06:39 WBC RBC Hgb Hct MCV MCH MCHC RDW Plt Count MPV Neut % (Auto) Lymph % (Auto) Wolfe % (Auto) Eos % (Auto) Baso % (Auto) Neut # (Auto) Lymph # (Auto) Wolfe # (Auto) Eos # (Auto) Baso # (Auto) Total Counted Immature Gran % Nucleated RBC % Immature Gran # Segmented Neutrophils Band Neutrophils Lymphocytes Nucleated RBCs # Platelet Estimate Pappenheimer Bodies INR PT Patient/Control Mix Circ Anticoag PTT Patient Temperature ABG pH 7.351 ABG pH at Pt Temp ABG pCO2 40.3 ABG pCO2 at Pt Temp ABG pO2 107.0 H ABG pO2 at Pt Temp ABG HCO3 21.9 ABG Total CO2 20.4 L ABG O2 Saturation 98.2 ABG Base Excess -3.1 L ABG Sodium VBG pH VBG pCO2 VBG pO2 VBG HCO3 VBG Total CO2 VBG O2 Saturation VBG Base Excess Hemoglobin 10.0 L Hematocrit 30.9 L Potassium 4.2 Glucose 164 H Ionized Calcium FiO2 Sodium Chloride Carbon Dioxide Anion Gap BUN Creatinine GFR Calculation BUN/Creatinine Ratio POC Glucose 150 H Calculated Osmolality Calcium Venous Ioniz Calcium Magnesium Total Bilirubin Direct Bilirubin AST ALT Alkaline Phosphatase Total Creatine Kinase CK-MB (CK-2) CK and CKMB Interp Troponin I Total Protein Albumin Globulin Albumin/Globulin Ratio Blood Type Antibody Screen Crossmatch - EKG EKG results: interpreted by me Quality Measures - VTE Contraindication to Pharmacological VTE Prophylaxis: High Risk of Bleeding Specialty Discharge - Follow Up or Referrals
[2017-04-03] MEDS ORDERED: LIDOCAINE 5% PATCH TRANSDERM SCH (09:00)
[2017-04-03] MEDS: CARVEDILOL 6.25 MG TABLET PO SCH ×3 (09:07→16:36)
[2017-04-03] MEDS: metFORMIN 500 MG TABLET PO SCH ×3 (09:07→16:36)
[2017-04-03] MEDS: GLIMEPIRIDE 4 MG TABLET PO SCH ×3 (09:07→16:36)
[2017-04-03] MEDS: INSULIN NPH 100 UNIT/ML SUBCUT SCH ×3 (09:08→15:55)
[2017-04-03] MEDS: INSULIN REGULAR 100 UNIT/ML SUBCUT SCH ×5 (09:08→20:59)
[2017-04-03] MEDS: FUROSEMIDE 20 MG TABLET PO SCH (09:10)
[2017-04-03] MEDS: DILTIAZEM CD 120 MG CAPSULE PO SCH ×2 (09:10→21:00)
[2017-04-03] MEDS: MULTIVITAMIN (OCUVITE) TABLET PO SCH ×2 (09:10→10:11)
[2017-04-03] MEDS: MAGNESIUM CHLORIDE 64 MG TABLET PO SCH ×2 (09:10→21:00)
[2017-04-03] MEDS: VITAMIN E 400 UNIT CAPSULE PO SCH ×2 (09:10→10:11)
[2017-04-03] MEDS: GEMFIBROZIL 600 MG TABLET PO SCH ×3 (09:10→21:00)
[2017-04-03] MEDS: PANTOPRAZOLE 40 MG TABLET PO SCH (09:11)
[2017-04-03] MEDS: GABAPENTIN 300 MG CAPSULE PO SCH ×2 (09:11→21:01)
[2017-04-03] MEDS: DOCUSATE SODIUM 100 MG CAPSULE PO SCH (09:11)
[2017-04-03] MEDS: FERROUS SULFATE 325 MG TABLET PO SCH ×2 (09:11→10:12)
[2017-04-03] MEDS: MULTIVITAMIN (CENTRUM) TABLET PO SCH ×2 (09:11→10:12)
[2017-04-03] MEDS: OMEGA 3 ACID ETHYL ESTERS 1 GM CAPSULE PO SCH ×2 (09:11→10:12)
[2017-04-03] MEDS: sitaGLIPtin 100 MG TABLET PO SCH (09:20)
[2017-04-03] MEDS: CHLORHEXIDINE 0.12% ORAL RINSE 60 ML BOTTLE SWISH/SPIT SCH ×3 (09:20→21:55)
[2017-04-03] MEDS: ACYCLOVIR 200 MG CAPSULE PO SCH ×4 (09:29→22:52)
[2017-04-03] MEDS: AMIODARONE INJ 450 MG in DEXTROSE 5% 241 ML IV SCH (09:53)
[2017-04-03] MEDS ORDERED: SUFentanil 50 MCG/ML AMP ONE (09:59)
[2017-04-03] MEDS ORDERED: PROMETHAZINE INJ 12.5 MG in SODIUM CHLORIDE 0.9% 50 ML IV PRN (11:23)
[2017-04-03] MEDS ORDERED: METOCLOPRAMIDE 10 MG/2 ML VIAL IV PRN (11:25)
[2017-04-03] MEDS: ENOXAPARIN 80 MG/0.8 ML SYRINGE SUBCUT SCH ×2 (11:35→22:52)
[2017-04-03] MEDS: AMIODARONE 200 MG TABLET PO SCH ×2 (11:35→21:01)
--- NOTE | 2017-04-03 12:49 | Hospitalist Progress Note ---
Assessment and Plan (1) S/P CABG (coronary artery bypass graft) Problem details: Three-vessel coronary artery disease; internal mammary graft to the anterior descending coronary artery and saphenous vein graft to the obtuse marginal and right coronary arteries 04/02/2017. Patient is to transfer from ICU to telemetry gutierrez today. Status: Acute Current Visit: Yes (2) Diabetes Problem details: Type 2 diabetes mellitus managed postoperatively (yesterday ) by following IV insulin protocol. After transfer from ICU patient is to complete before meals and bedtime bedside glucose checks. He will receive low- dose basal insulin injection twice daily and sliding scale pre-meal Humulin. Metformin and Januvia remain on hold. Status: Chronic Current Visit: Yes Qualifiers: Diabetes mellitus type: type 2 (3) Hypertension Problem details: Well-controlled postoperatively; continue current treatment with Coreg, diltiazem, and Lasix. Status: Chronic Current Visit: Yes (4) Unspecified sleep apnea Problem details: Outpatient polysomnogram is recommended Status: Chronic Current Visit: Yes (5) Atrial fibrillation Problem details: Paroxysmal; early postoperative period patient is in normal sinus rhythm. Systemic coagulation per consulting wheel press operator and cardiothoracic surgery service. Status: Acute Current Visit: Yes Hospitalist: Subjective Interval history: Patient has been extubated. He is alert. He communicates well verbally he is not in acute distress. Exam - Constitutional Vitals: Period Temp Pulse Resp BP Sys/Guzman Pulse Ox Last 24 Hr 96.8 F-99.2 F 66-80 8-18 92-144/52-86 95-100 General appearance: normal weight, no acute distress - Head Head exam: Present: normal inspection - Eye Eye exam: Present: EOMI Pupils: Present: HEATHER - ENT ENT exam: Present: normal exam - Neck Neck exam: Present: normal inspection. Absent: meningismus - Respiratory Respiratory exam: Present: clear to auscultation bilaterally, chest wall tenderness. Absent: rales, wheezes - Cardiovascular Cardiovascular exam: Present: regular rate and rhythm. Absent: carotid bruit - GI/Abdominal GI/Abdominal exam: Present: normal bowel sounds, soft. Absent: firm, tenderness , rebound - Extremities Exam Extremities exam: Present: normal inspection, other (Bilateral lower leg saphenous vein harvest site surgical wounds). Absent: calf tenderness - Neurological Exam Neurological exam: Present: oriented X3 - Psychiatric Psychiatric exam: Present: normal affect, normal mood - Skin Skin exam: Present: normal color, dry, other (Both feet well perfused). Absent : rash Results - Labs CBC & BMP: 04/03/17 03:30 04/03/17 03:25 - Diagnostic Findings Procedure: Chest x-ray: report reviewed by me (Left-sided chest tube removed; endotracheal tube removed) Quality Measures - VTE Contraindication to Pharmacological VTE Prophylaxis: High Risk of Bleeding Specialty Discharge - Follow Up or Referrals
--- NOTE | 2017-04-03 13:02 | Sleep Medicine Progress Note ---
Assessment and Plan (1) Unspecified sleep apnea Problem details: Outpatient polysomnogram is recommended Status: Chronic Assessment and plan: We will set up outpatient polysomnography. Thank you for this consult. Follow- up will be in sleep clinic. Current Visit: Yes (2) Diabetes Problem details: Type 2 diabetes mellitus managed postoperatively (yesterday ) by following IV insulin protocol. After transfer from ICU patient is to complete before meals and bedtime bedside glucose checks. He will receive low- dose basal insulin injection twice daily and sliding scale pre-meal Humulin. Metformin and Januvia remain on hold. Status: Chronic Current Visit: Yes Qualifiers: Diabetes mellitus type: type 2 (3) Hypertension Problem details: Well-controlled postoperatively; continue current treatment with Coreg, diltiazem, and Lasix. Status: Chronic Current Visit: Yes (4) Coronary artery disease Status: Acute Current Visit: Yes Sleep Medicine Subjective Interval history: Patient recovering from bypass surgery. He has too much going on to do HST evaluation on him at present. We will allow him to recover from his surgery and schedule him for sleep study evaluation as an outpatient after discharge. I discussed all of this with he and his to their understanding and they are in agreement. Exam (Progress Note) - Constitutional Vitals: Period Temp Pulse Resp BP Sys/Guzman Pulse Ox Last 24 Hr 96.8 F-99.2 F 70-80 8-18 92-144/52-86 95-100 Exam: Patient alert and responsive and answers questions appropriately. Results - Labs CBC & BMP: 04/03/17 03:30 04/03/17 03:25 Lab Results: I have reviewed the past 24 hour labs Specialty Discharge - Follow Up or Referrals
[2017-04-03] MEDS: ROSUVASTATIN 20 MG TABLET PO SCH (21:01)
[2017-04-03] MEDS: ASPIRIN EC 81 MG TABLET PO SCH (21:01)
[2017-04-04] MEDS ORDERED: FUROSEMIDE 40 MG/4 ML VIAL IV ONE (06:00)
[2017-04-04 06:13] LABS: Basophils % 0.1 % (0.0-0.8); Eosinophils # 0.1 10*3/uL (0.0-0.87); Eosinophils % 0.5 % (0.00-10.9); Hematocrit 25.6 VOL% (42.0-52.0); Hemoglobin 8.5 GM/DL (14.0-18.0); Immature Granulocytes % 0.9 %; Immature Granulocytes Absolute 0.09 #; Lymphocytes % 9.5 % (21.2-54.2); Mean Corpuscular HGB Conc 33.2 GM/DL (32-36); Mean Corpuscular Hemoglobin 29 PG (27-34); Mean Corpuscular Volume 88.3 FL (87-102); Mean Platelet Volume 12.3 FL (9.6-12.0); Monocytes % 9.9 % (1.7-12.7); Neutrophils # 8.3 10*3/uL (1.4-7.4); Neutrophils % 79.1 % (38.7-73.9); Platelet Count 106 T/CUMM (130-400); Red Cell Distribution Width 13.6 % (9.3-17.3); White Blood Count 10.5 T/CUMM (4-12)
[2017-04-04] MEDS: ACYCLOVIR 200 MG CAPSULE PO SCH ×5 (06:27→21:11)
[2017-04-04 06:42] LABS: Calcium 8.1 MG/DL (8.5-10.1); Magnesium 2.4 MG/DL (1.8-2.4); Osmolality,Calculated 290.7 MOS/KG (273-304); Potassium 4.3 MMOL/L (3.5-5.1)
[2017-04-04 06:52] LABS: Albumin 3.2 G/DL (3.4-5.0); Bilirubin,Direct 0.1 MG/DL (0.0-0.20); Bilirubin,Indirect 0.3 MG/DL (0.0-1.0); Bilirubin,Total 0.4 MG/DL (0.2-1.0); Calcium 7.9 MG/DL (8.5-10.1); Osmolality,Calculated 292.5 MOS/KG (273-304); Potassium 4.1 MMOL/L (3.5-5.1); Total Protein 5.5 G/DL (6.4-8.3)
[2017-04-04 06:57] LABS: Troponin I Only 4.33 NG/ML (0.00-0.045)
--- NOTE | 2017-04-04 07:36 | XRay Report ---
Portable chest. Indication: Shortness of breath. Comparison: April 03, 2017. The heart is enlarged. Post median sternotomy. Right IJ line distal tip is in the right atrium. The pulmonary vasculature is normal. Worsening atelectasis in the left lung base. [place] catheter and endotracheal tube have been removed. Impression: Worsening left basilar atelectasis. PROCEDURE INTERPRETED AT [facility] Final Report Signed by: Dr. Estephanie Daniel
--- NOTE | 2017-04-04 09:20 | Cardiothoracic Progress Note ---
Cardiothoracic Subjective Interval history: Patient is awake alert and extubated. Vital signs have been stable and is breathing comfortably. He has been able to be up walking to the bathroom. Blood work and x-rays are all acceptable for postoperative day 2. His hematocrit is a little low but I think we will watch this for now. We will increase his activity according to routine postoperative protocol and overall his progress appears satisfactory. Exam (Progress Note) - Constitutional Vitals: Period Temp Pulse Resp BP Sys/Guzman Pulse Ox Last 24 Hr 97.5 F-99.0 F 73-86 14-20 98-143/54-79 93-97 Result/EKG - Labs CBC & BMP: 04/04/17 05:47 04/04/17 05:47 Labs: Laboratory Results - last 24 hr 04/03/17 04/03/17 04/03/17 14:27 17:29 20:11 WBC RBC Hgb Hct MCV MCH MCHC RDW Plt Count MPV Neut % (Auto) Lymph % (Auto) [place] % (Auto) Eos % (Auto) Baso % (Auto) Neut # (Auto) Lymph # (Auto) [place] # (Auto) Eos # (Auto) Baso # (Auto) Immature Gran % Nucleated RBC % Immature Gran # Nucleated RBCs # Sodium Potassium Chloride Carbon Dioxide Anion Gap BUN Creatinine GFR Calculation BUN/Creatinine Ratio Glucose POC Glucose 402 H 397 H 383 H Calculated Osmolality Calcium Magnesium Total Bilirubin Direct Bilirubin Indirect Bilirubin AST ALT Alkaline Phosphatase Total Creatine Kinase CK-MB (CK-2) CK and CKMB Interp Troponin I Total Protein Albumin Globulin Albumin/Globulin Ratio 04/04/17 04/04/17 04/04/17 05:47 05:47 05:47 WBC 10.5 RBC 2.90 L Hgb 8.5 L Hct 25.6 L MCV 88.3 MCH 29 MCHC 33.2 RDW 13.6 Plt Count 106 L MPV 12.3 H Neut % (Auto) 79.1 H Lymph % (Auto) 9.5 L [place] % (Auto) 9.9 Eos % (Auto) 0.5 Baso % (Auto) 0.1 Neut # (Auto) 8.3 H Lymph # (Auto) 1.0 L [place] # (Auto) 1.0 H Eos # (Auto) 0.1 Baso # (Auto) 0.0 Immature Gran % 0.9 Nucleated RBC % 0.0 Immature Gran # 0.09 Nucleated RBCs # 0.00 Sodium 138 139 Potassium 4.3 4.1 Chloride 105 104 Carbon Dioxide 25 25 Anion Gap 12.3 14.1 BUN 38 H 37 H Creatinine 2.10 H 2.10 H GFR Calculation 35 35 BUN/Creatinine Ratio 18.00 17.00 Glucose 228 H 226 H POC Glucose Calculated Osmolality 290.7 292.5 Calcium 8.1 L 7.9 L Magnesium 2.4 Total Bilirubin 0.40 Direct Bilirubin 0.10 Indirect Bilirubin 0.3 AST 37 ALT 29 Alkaline Phosphatase 44 L Total Creatine Kinase 397 H CK-MB (CK-2) 20.0 H D CK and CKMB Interp 5.0 Troponin I 4.330 H Total Protein 5.5 L Albumin 3.2 L Globulin 2.3 Albumin/Globulin Ratio 1.3 Quality Measures - VTE Contraindication to Pharmacological VTE Prophylaxis: High Risk of Bleeding Specialty Discharge - Follow Up or Referrals
[2017-04-04] MEDS: FERROUS SULFATE 325 MG TABLET PO SCH (09:26)
[2017-04-04] MEDS: CARVEDILOL 6.25 MG TABLET PO SCH ×2 (09:27→17:14)
[2017-04-04] MEDS: GABAPENTIN 300 MG CAPSULE PO SCH ×2 (09:27→21:12)
[2017-04-04] MEDS: DOCUSATE SODIUM 100 MG CAPSULE PO SCH (09:27)
[2017-04-04] MEDS: MULTIVITAMIN (OCUVITE) TABLET PO SCH (09:27)
[2017-04-04] MEDS: MAGNESIUM CHLORIDE 64 MG TABLET PO SCH ×2 (09:27→21:10)
[2017-04-04] MEDS: VITAMIN E 400 UNIT CAPSULE PO SCH (09:28)
[2017-04-04] MEDS: DILTIAZEM CD 120 MG CAPSULE PO SCH ×2 (09:28→21:11)
[2017-04-04] MEDS: GEMFIBROZIL 600 MG TABLET PO SCH ×2 (09:28→21:10)
[2017-04-04] MEDS: MULTIVITAMIN (CENTRUM) TABLET PO SCH (09:28)
[2017-04-04] MEDS: OMEGA 3 ACID ETHYL ESTERS 1 GM CAPSULE PO SCH (09:28)
[2017-04-04] MEDS: PANTOPRAZOLE 40 MG TABLET PO SCH (09:28)
[2017-04-04] MEDS: sitaGLIPtin 100 MG TABLET PO SCH (09:29)
[2017-04-04] MEDS: GLIMEPIRIDE 4 MG TABLET PO SCH ×2 (09:29→17:14)
[2017-04-04] MEDS: INSULIN REGULAR 100 UNIT/ML SUBCUT SCH ×4 (09:29→21:08)
[2017-04-04] MEDS: FUROSEMIDE 20 MG TABLET PO SCH (09:29)
[2017-04-04] MEDS: AMIODARONE 200 MG TABLET PO SCH ×2 (09:29→21:09)
[2017-04-04] MEDS: CHLORHEXIDINE 0.12% ORAL RINSE 60 ML BOTTLE SWISH/SPIT SCH ×2 (09:31→22:03)
[2017-04-04] MEDS: ACETAMINOPHEN 325 MG TABLET PO PRN ×2 (09:41→17:14)
[2017-04-04] MEDS: metFORMIN 500 MG TABLET PO SCH ×2 (09:41→17:15)
[2017-04-04] MEDS: SODIUM CHLOR 0.45% KCL 20 MEQ 20 MEQ/1,000 ML BAG IV SCH (10:23)
[2017-04-04] MEDS: ENOXAPARIN 80 MG/0.8 ML SYRINGE SUBCUT SCH ×2 (10:32→22:02)
--- NOTE | 2017-04-04 12:40 | Cardiology Progress Note ---
Assessment and Plan (1) Atrial fibrillation Problem details: Paroxysmal; early postoperative period patient is in normal sinus rhythm. Systemic coagulation per consulting funeral car driver and cardiothoracic surgery service. Status: Acute Assessment and plan: 66-year-old male, CAD, atrial fibrillation, hypertension, hyperlipidemia, type 2 diabetes mellitus. Preserved LVEF. 04/02: CABG x3. -Cont ASA, Coreg, statin/gemfibrozil/O3 for CAD -LVEF was preserved. -BP well controlled. -Cont amiodarone 200 mg bid. May cut back to 200 mg daily in 1 week, on 04/10 -May stop diltiazem if BP trends lower -No active bleeding. Crit 25. High risk for thromboembolic complications, AF-> SR during surgery. Cont full anticoagulation with Lovenox 80 mg twice daily, switch back to Eliquis, if no bleeding issues. CHADSVASC 4. If becomes more anemic or develops active bleeding, we will be forced to stop anticoagulation for now -cont iron -cont PPI Current Visit: Yes (2) Diabetes Problem details: Type 2 diabetes mellitus managed postoperatively (yesterday ) by following IV insulin protocol. After transfer from ICU patient is to complete before meals and bedtime bedside glucose checks. He will receive low- dose basal insulin injection twice daily and sliding scale pre-meal Humulin. Metformin and Januvia remain on hold. Status: Chronic Current Visit: Yes Qualifiers: Diabetes mellitus type: type 2 (3) Hypertension Problem details: Well-controlled postoperatively; continue current treatment with Coreg, diltiazem, and Lasix. Status: Chronic Current Visit: Yes (4) Coronary artery disease Status: Acute Current Visit: Yes (5) Unspecified sleep apnea Problem details: Outpatient polysomnogram is recommended Status: Chronic Current Visit: Yes Cardiology - PN: Subj Interval history: He is feeling better. Hematocrit 25. In sinus rhythm, blood pressure well controlled Exam (Progress Note) - Constitutional Vitals: Period Temp Pulse Resp BP Sys/Guzman Pulse Ox Last 24 Hr 97.5 F-99.0 F 80-86 14-20 98-140/54-71 93-99 General appearance: normal weight, no acute distress - Head Head exam: Present: normal inspection, normocephalic - Eye Eye exam: Absent: conjunctival injection, scleral icterus Pupils: Absent: dilated - ENT ENT exam: Present: normal external ear exam - Neck Neck exam: Present: normal inspection - Respiratory Respiratory exam: Present: decreased breath sounds. Absent: rhonchi, wheezes - Cardiovascular Cardiovascular exam: Present: regular rate and rhythm. Absent: JVD - GI/Abdominal GI/Abdominal exam: Present: normal bowel sounds. Absent: distended, firm - Extremities Exam Extremities exam: Present: normal inspection, normal capillary refill, edema, other (Dry bandage) - Back Exam Back exam: Present: normal inspection - Neurological Exam Neurological exam: Present: alert, oriented X3 - Psychiatric Psychiatric exam: Present: normal affect, normal mood - Skin Skin exam: Present: normal color, warm. Absent: cyanosis Result/EKG - Labs CBC & BMP: 04/04/17 05:47 04/04/17 05:47 Lab Results: I have reviewed the past 24 hour labs Labs: Laboratory Results - last 24 hr 04/03/17 04/03/17 04/03/17 14:27 17:29 20:11 WBC RBC Hgb Hct MCV MCH MCHC RDW Plt Count MPV Neut % (Auto) Lymph % (Auto) [place] % (Auto) Eos % (Auto) Baso % (Auto) Neut # (Auto) Lymph # (Auto) [place] # (Auto) Eos # (Auto) Baso # (Auto) Immature Gran % Nucleated RBC % Immature Gran # Nucleated RBCs # Sodium Potassium Chloride Carbon Dioxide Anion Gap BUN Creatinine GFR Calculation BUN/Creatinine Ratio Glucose POC Glucose 402 H 397 H 383 H Calculated Osmolality Calcium Magnesium Total Bilirubin Direct Bilirubin Indirect Bilirubin AST ALT Alkaline Phosphatase Total Creatine Kinase CK-MB (CK-2) CK and CKMB Interp Troponin I Total Protein Albumin Globulin Albumin/Globulin Ratio 04/04/17 04/04/17 04/04/17 05:47 05:47 05:47 WBC 10.5 RBC 2.90 L Hgb 8.5 L Hct 25.6 L MCV 88.3 MCH 29 MCHC 33.2 RDW 13.6 Plt Count 106 L MPV 12.3 H Neut % (Auto) 79.1 H Lymph % (Auto) 9.5 L [place] % (Auto) 9.9 Eos % (Auto) 0.5 Baso % (Auto) 0.1 Neut # (Auto) 8.3 H Lymph # (Auto) 1.0 L [place] # (Auto) 1.0 H Eos # (Auto) 0.1 Baso # (Auto) 0.0 Immature Gran % 0.9 Nucleated RBC % 0.0 Immature Gran # 0.09 Nucleated RBCs # 0.00 Sodium 138 139 Potassium 4.3 4.1 Chloride 105 104 Carbon Dioxide 25 25 Anion Gap 12.3 14.1 BUN 38 H 37 H Creatinine 2.10 H 2.10 H GFR Calculation 35 35 BUN/Creatinine Ratio 18.00 17.00 Glucose 228 H 226 H POC Glucose Calculated Osmolality 290.7 292.5 Calcium 8.1 L 7.9 L Magnesium 2.4 Total Bilirubin 0.40 Direct Bilirubin 0.10 Indirect Bilirubin 0.3 AST 37 ALT 29 Alkaline Phosphatase 44 L Total Creatine Kinase 397 H CK-MB (CK-2) 20.0 H D CK and CKMB Interp 5.0 Troponin I 4.330 H Total Protein 5.5 L Albumin 3.2 L Globulin 2.3 Albumin/Globulin Ratio 1.3 04/04/17 04/04/17 07:28 12:15 WBC RBC Hgb Hct MCV MCH MCHC RDW Plt Count MPV Neut % (Auto) Lymph % (Auto) [place] % (Auto) Eos % (Auto) Baso % (Auto) Neut # (Auto) Lymph # (Auto) [place] # (Auto) Eos # (Auto) Baso # (Auto) Immature Gran % Nucleated RBC % Immature Gran # Nucleated RBCs # Sodium Potassium Chloride Carbon Dioxide Anion Gap BUN Creatinine GFR Calculation BUN/Creatinine Ratio Glucose POC Glucose 225 H 354 H Calculated Osmolality Calcium Magnesium Total Bilirubin Direct Bilirubin Indirect Bilirubin AST ALT Alkaline Phosphatase Total Creatine Kinase CK-MB (CK-2) CK and CKMB Interp Troponin I Total Protein Albumin Globulin Albumin/Globulin Ratio - EKG EKG results: interpreted by ma Quality Measures - VTE Contraindication to Pharmacological VTE Prophylaxis: High Risk of Bleeding Specialty Discharge - Follow Up or Referrals
[2017-04-04] MEDS: INSULIN NPH 100 UNIT/ML SUBCUT SCH ×2 (13:19→17:16)
--- NOTE | 2017-04-04 13:34 | Hospitalist Progress Note ---
Assessment and Plan (1) S/P CABG (coronary artery bypass graft) Problem details: Three-vessel coronary artery disease; internal mammary graft to the anterior descending coronary artery and saphenous vein graft to the obtuse marginal and right coronary arteries 04/02/2017 (postop day 2). Status : Acute Current Visit: Yes (2) Diabetes Problem details: Type 2 diabetes mellitus managed in the first 24 postoperative hours by following IV insulin protocol. Serum glucose remains unacceptably elevated. I increased her NPH dose. Continue sliding scale protocol coverage, and resumed all of patient's home oral diabetes medications. Status: Chronic Current Visit: Yes Qualifiers: Diabetes mellitus type: type 2 (3) Hypertension Problem details: Well-controlled postoperatively; continue current treatment with Coreg, diltiazem, and Lasix. Status: Chronic Current Visit: Yes (4) Unspecified sleep apnea Problem details: Outpatient polysomnogram is recommended to confirm suspected clinical diagnosis and initiate positive pressure cPaP therapy. Status: Chronic Current Visit: Yes (5) Atrial fibrillation Problem details: Paroxysmal; early postoperative period patient has maintained normal sinus rhythm. Systemic coagulation per consulting counter molder and cardiothoracic surgery service. Patient is receiving treatment dose subQ Lovenox Status: Acute Current Visit : Yes (6) Anemia Problem details: Multifactorial including chronic disease and acute surgical blood loss. Patient remains hemodynamically stable. Continue monitoring. There is no indication for immediate blood product transfusion at present. Status: Acute Current Visit: Yes (7) Acute kidney injury Problem details: Related to suspected intravascular volume depletion. IV Lasix dose discontinued earlier today. Recheck BMP in a.m. Status: Acute Current Visit: Yes (8) Dyslipidemia Problem details: Receiving Crestor. Check fasting lipid profile in a.m. Status: Acute Current Visit: Yes Hospitalist: Subjective Interval history: Patient is alert and fully oriented. He is seated upright in bedside chair. His and 2 other family members are present at bedside at the time of my interview and exam today. Patient denies postoperative pain. He is not in acute distress. Exam - Constitutional Vitals: Period Temp Pulse Resp BP Sys/Guzman Pulse Ox Last 24 Hr 97.5 F-99.0 F 80-86 14-20 98-140/54-71 93-99 General appearance: normal weight, no acute distress - Head Head exam: Present: normal inspection - Eye Eye exam: Present: EOMI Pupils: Present: HEATHER - Neck Neck exam: Absent: meningismus - Respiratory Respiratory exam: Present: clear to auscultation bilaterally, chest wall tenderness. Absent: rales, wheezes - Cardiovascular Cardiovascular exam: Present: regular rate and rhythm - GI/Abdominal GI/Abdominal exam: Present: normal bowel sounds, soft. Absent: guarding, rebound - Extremities Exam Extremities exam: Present: other (Bilateral lower leg saphenous vein harvest site surgical scars are clean and dry, wound edges are approximated without drainage or increased erythema.) Results - Labs CBC & BMP: 04/04/17 05:47 04/04/17 05:47 - Diagnostic Findings Procedure: Chest x-ray: other (Right IJ in position. Normal pulmonary vasculature. Worsening atelectasis left lung base. ) Quality Measures - VTE Contraindication to Pharmacological VTE Prophylaxis: High Risk of Bleeding Specialty Discharge - Follow Up or Referrals
[2017-04-04] MEDS: oxyCODONE/ACETAMINOPHEN 5-325 MG TABLET PO PRN (19:00)
[2017-04-04] MEDS: ROSUVASTATIN 20 MG TABLET PO SCH (21:10)
[2017-04-04] MEDS: ASPIRIN EC 81 MG TABLET PO SCH (21:12)
[2017-04-04] MEDS: ZALEPLON 5 MG CAPSULE PO PRN (22:02)
[2017-04-05 05:58] LABS: Basophils % 0.2 % (0.0-0.8); Eosinophils # 0.1 10*3/uL (0.0-0.87); Eosinophils % 1.3 % (0.00-10.9); Hematocrit 24.7 VOL% (42.0-52.0); Hemoglobin 8.4 GM/DL (14.0-18.0); Immature Granulocytes % 0.7 %; Immature Granulocytes Absolute 0.06 #; Lymphocytes # 1.2 10*3/uL (1.4-4.0); Lymphocytes % 14.4 % (21.2-54.2); Mean Corpuscular Hemoglobin 30 PG (27-34); Mean Corpuscular Volume 87.9 FL (87-102); Mean Platelet Volume 12.4 FL (9.6-12.0); Monocytes % 12.5 % (1.7-12.7); Neutrophils # 5.9 10*3/uL (1.4-7.4); Neutrophils % 70.9 % (38.7-73.9); Platelet Count 96 T/CUMM (130-400); Red Blood Count 2.81 MC/CUMM (3.8-5.5); Red Cell Distribution Width 13.5 % (9.3-17.3); White Blood Count 8.3 T/CUMM (4-12)
[2017-04-05] MEDS: ACYCLOVIR 200 MG CAPSULE PO SCH ×5 (06:20→23:21)
[2017-04-05] MEDS: oxyCODONE/ACETAMINOPHEN 5-325 MG TABLET PO PRN ×3 (06:23→19:22)
[2017-04-05 06:30] LABS: Risk Ratio 2.66; VLDL CHOLESTEROL 39.4 MG/DL
[2017-04-05 06:38] LABS: Calcium 7.9 MG/DL (8.5-10.1); Magnesium 2.3 MG/DL (1.8-2.4); Osmolality,Calculated 287.5 MOS/KG (273-304); Potassium 3.6 MMOL/L (3.5-5.1)
[2017-04-05 06:43] LABS: Bilirubin,Direct 0.2 MG/DL (0.0-0.20); Bilirubin,Indirect 0.3 MG/DL (0.0-1.0); Bilirubin,Total 0.5 MG/DL (0.2-1.0); Calcium 7.9 MG/DL (8.5-10.1); Total Protein 5.7 G/DL (6.4-8.3)
[2017-04-05 06:44] LABS: CKMB % 2.4 %; Osmolality,Calculated 286.5 MOS/KG (273-304); Potassium 3.7 MMOL/L (3.5-5.1)
[2017-04-05 06:55] LABS: Troponin I Only 3.21 NG/ML (0.00-0.045)
[2017-04-05 07:55] LABS: Hypochromasia Slight; Microcytosis 2+; Platelet Estimate Decreased; Polychromasia Slight
--- NOTE | 2017-04-05 08:02 | Cardiothoracic Progress Note ---
Cardiothoracic Subjective Interval history: Patient looks and feels better. He is breathing comfortably and his vital signs are stable. His lab and x-ray results are essentially within normal limits for postop day 3. His hematocrit is 25% but stable and I think we will watch this and hopefully avoid transfusion. Increase activities according to routine postoperative protocol. Exam (Progress Note) - Constitutional Vitals: Period Temp Pulse Resp BP Sys/Guzman Pulse Ox Last 24 Hr 97.4 F-98.6 F 81-88 16-20 102-137/58-76 94-99 Result/EKG - Labs CBC & BMP: 04/05/17 05:39 04/05/17 05:39 Labs: Laboratory Results - last 24 hr 04/01/17 04/03/17 04/04/17 11:43 08:18 07:28 WBC RBC Hgb Hct MCV MCH MCHC RDW Plt Count MPV Neut % (Auto) Lymph % (Auto) [place] % (Auto) Eos % (Auto) Baso % (Auto) Neut # (Auto) Lymph # (Auto) [place] # (Auto) Eos # (Auto) Baso # (Auto) Immature Gran % Nucleated RBC % Immature Gran # Nucleated RBCs # Platelet Estimate Polychromasia Hypochromasia Microcytosis Morphology Comment Sodium Potassium Chloride Carbon Dioxide Anion Gap BUN Creatinine GFR Calculation BUN/Creatinine Ratio Glucose POC Glucose 237 H 225 H Calculated Osmolality Calcium Magnesium Total Bilirubin Direct Bilirubin Indirect Bilirubin AST ALT Alkaline Phosphatase Total Creatine Kinase CK-MB (CK-2) CK and CKMB Interp Troponin I Total Protein Albumin Globulin Albumin/Globulin Ratio Triglycerides Cholesterol LDL Cholesterol VLDL Cholesterol HDL Cholesterol Heart Disease Risk Ratio Crossmatch See Detail 04/04/17 04/04/17 04/04/17 12:15 16:44 20:20 WBC RBC Hgb Hct MCV MCH MCHC RDW Plt Count MPV Neut % (Auto) Lymph % (Auto) [place] % (Auto) Eos % (Auto) Baso % (Auto) Neut # (Auto) Lymph # (Auto) [place] # (Auto) Eos # (Auto) Baso # (Auto) Immature Gran % Nucleated RBC % Immature Gran # Nucleated RBCs # Platelet Estimate Polychromasia Hypochromasia Microcytosis Morphology Comment Sodium Potassium Chloride Carbon Dioxide Anion Gap BUN Creatinine GFR Calculation BUN/Creatinine Ratio Glucose POC Glucose 354 H 268 H 328 H Calculated Osmolality Calcium Magnesium Total Bilirubin Direct Bilirubin Indirect Bilirubin AST ALT Alkaline Phosphatase Total Creatine Kinase CK-MB (CK-2) CK and CKMB Interp Troponin I Total Protein Albumin Globulin Albumin/Globulin Ratio Triglycerides Cholesterol LDL Cholesterol VLDL Cholesterol HDL Cholesterol Heart Disease Risk Ratio Crossmatch 04/05/17 04/05/17 04/05/17 05:39 05:39 05:39 WBC 8.3 RBC 2.81 L Hgb 8.4 L Hct 24.7 L MCV 87.9 MCH 30 MCHC 34.0 RDW 13.5 Plt Count 96 L MPV 12.4 H Neut % (Auto) 70.9 Lymph % (Auto) 14.4 L [place] % (Auto) 12.5 Eos % (Auto) 1.3 Baso % (Auto) 0.2 Neut # (Auto) 5.9 Lymph # (Auto) 1.2 L [place] # (Auto) 1.0 H Eos # (Auto) 0.1 Baso # (Auto) 0.0 Immature Gran % 0.7 Nucleated RBC % 0.0 Immature Gran # 0.06 Nucleated RBCs # 0.00 Platelet Estimate Decreased Polychromasia Slight Hypochromasia Slight Microcytosis 2+ Morphology Comment Sodium 139 Potassium 3.6 Chloride 103 Carbon Dioxide 26 Anion Gap 13.6 BUN 37 H Creatinine 1.90 H GFR Calculation 39 BUN/Creatinine Ratio 19.00 Glucose 126 H POC Glucose Calculated Osmolality 287.5 Calcium 7.9 L Magnesium 2.3 Total Bilirubin Direct Bilirubin Indirect Bilirubin AST ALT Alkaline Phosphatase Total Creatine Kinase CK-MB (CK-2) CK and CKMB Interp Troponin I Total Protein Albumin Globulin Albumin/Globulin Ratio Triglycerides 197 H Cholesterol 77 LDL Cholesterol 30.0 VLDL Cholesterol 39.4 HDL Cholesterol 29 L Heart Disease Risk Ratio 2.66 Crossmatch 04/05/17 05:39 WBC RBC Hgb Hct MCV MCH MCHC RDW Plt Count MPV Neut % (Auto) Lymph % (Auto) [place] % (Auto) Eos % (Auto) Baso % (Auto) Neut # (Auto) Lymph # (Auto) [place] # (Auto) Eos # (Auto) Baso # (Auto) Immature Gran % Nucleated RBC % Immature Gran # Nucleated RBCs # Platelet Estimate Polychromasia Hypochromasia Microcytosis Morphology Comment Sodium 139 Potassium 3.7 Chloride 103 Carbon Dioxide 25 Anion Gap 14.7 BUN 37 H Creatinine 1.90 H GFR Calculation 39 BUN/Creatinine Ratio 19.00 Glucose 125 H POC Glucose Calculated Osmolality 286.5 Calcium 7.9 L Magnesium Total Bilirubin 0.50 Direct Bilirubin 0.20 Indirect Bilirubin 0.3 AST 26 ALT 27 Alkaline Phosphatase 49 Total Creatine Kinase 227 D CK-MB (CK-2) 5.4 H D CK and CKMB Interp 2.4 Troponin I 3.210 H D Total Protein 5.7 L Albumin 3.0 L Globulin 2.7 Albumin/Globulin Ratio 1.1 Triglycerides Cholesterol LDL Cholesterol VLDL Cholesterol HDL Cholesterol Heart Disease Risk Ratio Crossmatch Quality Measures - VTE Contraindication to Pharmacological VTE Prophylaxis: High Risk of Bleeding Specialty Discharge - Follow Up or Referrals
--- NOTE | 2017-04-05 08:23 | XRay Report ---
Portable chest. Indication: Shortness of breath. Comparison: Yesterday's exam. The heart is mildly enlarged. Post median sternotomy. Normal pulmonary vasculature. Clear right lung. Central venous catheter in satisfactory position. There is atelectasis at the left lung base, moderately severe and stable. Impression: No interval change. PROCEDURE INTERPRETED AT [facility] DEPARTMENT OF RADIOLOGY Final Report Signed by: Dr. Estephanie Daniel
[2017-04-05] MEDS: DOCUSATE SODIUM 100 MG CAPSULE PO SCH (08:26)
[2017-04-05] MEDS: MAGNESIUM CHLORIDE 64 MG TABLET PO SCH ×2 (08:26→21:24)
[2017-04-05] MEDS: OMEGA 3 ACID ETHYL ESTERS 1 GM CAPSULE PO SCH (08:26)
[2017-04-05] MEDS: GABAPENTIN 300 MG CAPSULE PO SCH ×2 (08:26→21:24)
[2017-04-05] MEDS: metFORMIN 500 MG TABLET PO SCH ×2 (08:26→17:02)
[2017-04-05] MEDS: VITAMIN E 400 UNIT CAPSULE PO SCH (08:26)
[2017-04-05] MEDS: FUROSEMIDE 20 MG TABLET PO SCH (08:26)
[2017-04-05] MEDS: PANTOPRAZOLE 40 MG TABLET PO SCH (08:27)
[2017-04-05] MEDS: sitaGLIPtin 100 MG TABLET PO SCH (08:27)
[2017-04-05] MEDS: GLIMEPIRIDE 4 MG TABLET PO SCH ×2 (08:27→17:02)
[2017-04-05] MEDS: MULTIVITAMIN (OCUVITE) TABLET PO SCH (08:27)
[2017-04-05] MEDS: FERROUS SULFATE 325 MG TABLET PO SCH (08:27)
[2017-04-05] MEDS: INSULIN NPH 100 UNIT/ML SUBCUT SCH ×2 (08:27→17:04)
[2017-04-05] MEDS: MULTIVITAMIN (CENTRUM) TABLET PO SCH (08:27)
[2017-04-05] MEDS: GEMFIBROZIL 600 MG TABLET PO SCH ×2 (08:27→21:24)
[2017-04-05] MEDS: AMIODARONE 200 MG TABLET PO SCH ×2 (08:27→21:24)
[2017-04-05] MEDS: CARVEDILOL 6.25 MG TABLET PO SCH ×2 (08:27→17:02)
[2017-04-05] MEDS: CHLORHEXIDINE 0.12% ORAL RINSE 60 ML BOTTLE SWISH/SPIT SCH ×2 (09:13→22:21)
[2017-04-05] MEDS: INSULIN REGULAR 100 UNIT/ML SUBCUT SCH ×4 (09:13→21:24)
[2017-04-05] MEDS: DILTIAZEM CD 120 MG CAPSULE PO SCH ×2 (10:13→21:24)
[2017-04-05] MEDS: ENOXAPARIN 80 MG/0.8 ML SYRINGE SUBCUT SCH ×2 (10:17→23:20)
--- NOTE | 2017-04-05 10:50 | Cardiology Progress Note ---
Assessment and Plan (1) Atrial fibrillation Problem details: Paroxysmal; early postoperative period patient has maintained normal sinus rhythm. Systemic coagulation per consulting manager utilization and cardiothoracic surgery service. Patient is receiving treatment dose subQ Lovenox Status: Acute Assessment and plan: 66-year-old male, CAD, atrial fibrillation, hypertension, hyperlipidemia, type 2 diabetes mellitus. Preserved LVEF. 04/02: CABG x3. -Cont ASA, Coreg, statin/gemfibrozil/O3 for CAD -LVEF was preserved. -BP well controlled. -Cont amiodarone 200 mg bid. May cut back to 200 mg daily in 1 week, around 04/10 -May stop diltiazem if BP trends lower -No active bleeding. Crit 25. High risk for thromboembolic complications, AF-> SR during surgery. Cont full anticoagulation with Lovenox 80 mg twice daily, may switch back to Eliquis before d/c, if no bleeding issues. CHADSVASC 4. If becomes more anemic or develops active bleeding, we will be forced to hold anticoagulation for now -cont iron -cont PPI Current Visit: Yes (2) Diabetes Problem details: Type 2 diabetes mellitus managed in the first 24 postoperative hours by following IV insulin protocol. Serum glucose remains unacceptably elevated. I increased her NPH dose. Continue sliding scale protocol coverage, and resumed all of patient's home oral diabetes medications. Status: Chronic Current Visit: Yes Qualifiers: Diabetes mellitus type: type 2 (3) Hypertension Problem details: Well-controlled postoperatively; continue current treatment with Coreg, diltiazem, and Lasix. Status: Chronic Current Visit: Yes (4) Coronary artery disease Status: Acute Current Visit: Yes (5) Unspecified sleep apnea Problem details: Outpatient polysomnogram is recommended to confirm suspected clinical diagnosis and initiate positive pressure cPaP therapy. Status: Chronic Current Visit: Yes Cardiology - PN: Subj Interval history: He is feeling stronger. Hematocrit 25. Eyes and ears were slightly negative. Sinus rhythm, frequent PACs on telemetry. Exam (Progress Note) - Constitutional Vitals: Period Temp Pulse Resp BP Sys/Guzman Pulse Ox Last 24 Hr 97.4 F-98.6 F 79-88 16-20 102-137/58-76 94-99 General appearance: normal weight, no acute distress - Head Head exam: Present: normal inspection, normocephalic - Eye Eye exam: Absent: conjunctival injection, scleral icterus Pupils: Absent: dilated - ENT ENT exam: Present: normal external ear exam - Neck Neck exam: Present: normal inspection - Respiratory Respiratory exam: Present: decreased breath sounds. Absent: prolonged expiratory phase, wheezes - Cardiovascular Cardiovascular exam: Present: regular rate and rhythm. Absent: JVD - GI/Abdominal GI/Abdominal exam: Present: normal bowel sounds. Absent: distended - Extremities Exam Extremities exam: Present: normal inspection, normal capillary refill, other ( Bandages in place). Absent: edema - Back Exam Back exam: Present: normal inspection - Neurological Exam Neurological exam: Present: alert, oriented X3 - Psychiatric Psychiatric exam: Present: normal affect, normal mood - Skin Skin exam: Present: normal color, warm. Absent: cyanosis Result/EKG - Labs CBC & BMP: 04/05/17 05:39 04/05/17 05:39 Lab Results: I have reviewed the past 24 hour labs Labs: Laboratory Results - last 24 hr 04/01/17 04/03/17 04/04/17 11:43 08:18 07:28 WBC RBC Hgb Hct MCV MCH MCHC RDW Plt Count MPV Neut % (Auto) Lymph % (Auto) [place] % (Auto) Eos % (Auto) Baso % (Auto) Neut # (Auto) Lymph # (Auto) [place] # (Auto) Eos # (Auto) Baso # (Auto) Immature Gran % Nucleated RBC % Immature Gran # Nucleated RBCs # Platelet Estimate Polychromasia Hypochromasia Microcytosis Morphology Comment Sodium Potassium Chloride Carbon Dioxide Anion Gap BUN Creatinine GFR Calculation BUN/Creatinine Ratio Glucose POC Glucose 237 H 225 H Calculated Osmolality Calcium Magnesium Total Bilirubin Direct Bilirubin Indirect Bilirubin AST ALT Alkaline Phosphatase Total Creatine Kinase CK-MB (CK-2) CK and CKMB Interp Troponin I Total Protein Albumin Globulin Albumin/Globulin Ratio Triglycerides Cholesterol LDL Cholesterol VLDL Cholesterol HDL Cholesterol Heart Disease Risk Ratio Crossmatch See Detail 04/04/17 04/04/17 04/04/17 12:15 16:44 20:20 WBC RBC Hgb Hct MCV MCH MCHC RDW Plt Count MPV Neut % (Auto) Lymph % (Auto) [place] % (Auto) Eos % (Auto) Baso % (Auto) Neut # (Auto) Lymph # (Auto) [place] # (Auto) Eos # (Auto) Baso # (Auto) Immature Gran % Nucleated RBC % Immature Gran # Nucleated RBCs # Platelet Estimate Polychromasia Hypochromasia Microcytosis Morphology Comment Sodium Potassium Chloride Carbon Dioxide Anion Gap BUN Creatinine GFR Calculation BUN/Creatinine Ratio Glucose POC Glucose 354 H 268 H 328 H Calculated Osmolality Calcium Magnesium Total Bilirubin Direct Bilirubin Indirect Bilirubin AST ALT Alkaline Phosphatase Total Creatine Kinase CK-MB (CK-2) CK and CKMB Interp Troponin I Total Protein Albumin Globulin Albumin/Globulin Ratio Triglycerides Cholesterol LDL Cholesterol VLDL Cholesterol HDL Cholesterol Heart Disease Risk Ratio Crossmatch 04/05/17 04/05/17 04/05/17 05:39 05:39 05:39 WBC 8.3 RBC 2.81 L Hgb 8.4 L Hct 24.7 L MCV 87.9 MCH 30 MCHC 34.0 RDW 13.5 Plt Count 96 L MPV 12.4 H Neut % (Auto) 70.9 Lymph % (Auto) 14.4 L [place] % (Auto) 12.5 Eos % (Auto) 1.3 Baso % (Auto) 0.2 Neut # (Auto) 5.9 Lymph # (Auto) 1.2 L [place] # (Auto) 1.0 H Eos # (Auto) 0.1 Baso # (Auto) 0.0 Immature Gran % 0.7 Nucleated RBC % 0.0 Immature Gran # 0.06 Nucleated RBCs # 0.00 Platelet Estimate Decreased Polychromasia Slight Hypochromasia Slight Microcytosis 2+ Morphology Comment Sodium 139 Potassium 3.6 Chloride 103 Carbon Dioxide 26 Anion Gap 13.6 BUN 37 H Creatinine 1.90 H GFR Calculation 39 BUN/Creatinine Ratio 19.00 Glucose 126 H POC Glucose Calculated Osmolality 287.5 Calcium 7.9 L Magnesium 2.3 Total Bilirubin Direct Bilirubin Indirect Bilirubin AST ALT Alkaline Phosphatase Total Creatine Kinase CK-MB (CK-2) CK and CKMB Interp Troponin I Total Protein Albumin Globulin Albumin/Globulin Ratio Triglycerides 197 H Cholesterol 77 LDL Cholesterol 30.0 VLDL Cholesterol 39.4 HDL Cholesterol 29 L Heart Disease Risk Ratio 2.66 Crossmatch 04/05/17 04/05/17 05:39 07:31 WBC RBC Hgb Hct MCV MCH MCHC RDW Plt Count MPV Neut % (Auto) Lymph % (Auto) [place] % (Auto) Eos % (Auto) Baso % (Auto) Neut # (Auto) Lymph # (Auto) [place] # (Auto) Eos # (Auto) Baso # (Auto) Immature Gran % Nucleated RBC % Immature Gran # Nucleated RBCs # Platelet Estimate Polychromasia Hypochromasia Microcytosis Morphology Comment Sodium 139 Potassium 3.7 Chloride 103 Carbon Dioxide 25 Anion Gap 14.7 BUN 37 H Creatinine 1.90 H GFR Calculation 39 BUN/Creatinine Ratio 19.00 Glucose 125 H POC Glucose 155 H Calculated Osmolality 286.5 Calcium 7.9 L Magnesium Total Bilirubin 0.50 Direct Bilirubin 0.20 Indirect Bilirubin 0.3 AST 26 ALT 27 Alkaline Phosphatase 49 Total Creatine Kinase 227 D CK-MB (CK-2) 5.4 H D CK and CKMB Interp 2.4 Troponin I 3.210 H D Total Protein 5.7 L Albumin 3.0 L Globulin 2.7 Albumin/Globulin Ratio 1.1 Triglycerides Cholesterol LDL Cholesterol VLDL Cholesterol HDL Cholesterol Heart Disease Risk Ratio Crossmatch - EKG EKG results: interpreted by me Quality Measures - VTE Contraindication to Pharmacological VTE Prophylaxis: High Risk of Bleeding Specialty Discharge - Follow Up or Referrals
--- NOTE | 2017-04-05 11:14 | Hospitalist Progress Note ---
Assessment and Plan - Time spent with patient Time spent with patient: Greater than 30 minutes (1) Diabetes Problem details: Type 2 diabetes mellitus managed in the first 24 postoperative hours by following IV insulin protocol. Serum glucose remains unacceptably elevated. I increased her NPH dose. Continue sliding scale protocol coverage, and resumed all of patient's home oral diabetes medications. Status: Chronic Assessment and plan: Glucose control satisfactory today. Continue current treatment regimen. Current Visit: Yes Qualifiers: Diabetes mellitus type: type 2 (2) Hypertension Problem details: Well-controlled postoperatively; continue current treatment with Coreg, diltiazem, and Lasix. Status: Chronic Current Visit: Yes (3) Coronary artery disease Status: Acute Assessment and plan: Continue current treatment plan. Current Visit: Yes (4) Unspecified sleep apnea Problem details: Outpatient polysomnogram is recommended to confirm suspected clinical diagnosis and initiate positive pressure cPaP therapy. Status: Chronic Current Visit: Yes (5) Atrial fibrillation Problem details: Paroxysmal; early postoperative period patient has maintained normal sinus rhythm. Systemic coagulation per consulting history faculty member and cardiothoracic surgery service. Patient is receiving treatment dose subQ Lovenox Status: Acute Current Visit : Yes (6) S/P CABG (coronary artery bypass graft) Problem details: Three-vessel coronary artery disease; internal mammary graft to the anterior descending coronary artery and saphenous vein graft to the obtuse marginal and right coronary arteries 04/02/2017 (postop day 3). Status : Acute Current Visit: Yes Hospitalist: Subjective Interval history: No overnight acute event. Has a few episodes of loose bm today. No fever or chest pain. VS WNL today. Fasting glucose is 125 this am. Exam - Constitutional Vitals: Period Temp Pulse Resp BP Sys/Guzman Pulse Ox Last 24 Hr 97.4 F-98.6 F 79-88 16-20 102-137/58-76 94-99 Exam: GENERAL: NAD, AAOx3. HEENT: Pupils equally round and reactive to light, conjunctivae clear. TMs wheeler and translucent. Normal lips, teeth and gums. NECK: Supple without mass. HEART: RRR, no murmur. CHEST: Normal shape, fair air movement, no retractions. CV: RRR, no murmurs, 2+ peripheral pulses LUNGS: Clear to auscultation; no rales, rhonchi, or wheezes. ABDOMEN: Soft, nontender, and no hepatosplenomegaly. SKIN: No rash or edema. LYMPH: No anterior or posterior cervical, or supraclavicular lymphadenopathy. NEURO: No gross motor deficits noted. Results - Labs CBC & BMP: 04/05/17 05:39 04/05/17 05:39 Quality Measures - VTE Contraindication to Pharmacological VTE Prophylaxis: High Risk of Bleeding Specialty Discharge - Follow Up or Referrals
[2017-04-05] MEDS: ASPIRIN EC 81 MG TABLET PO SCH (21:24)
[2017-04-05] MEDS: ROSUVASTATIN 20 MG TABLET PO SCH (21:24)
[2017-04-05] MEDS: ZALEPLON 5 MG CAPSULE PO PRN (21:24)
[2017-04-06] MEDS: oxyCODONE/ACETAMINOPHEN 5-325 MG TABLET PO PRN ×3 (04:08→15:58)
[2017-04-06] MEDS: ONDANSETRON 4 MG/2 ML VIAL IV PRN ×2 (05:00→16:59)
[2017-04-06] MEDS: ACYCLOVIR 200 MG CAPSULE PO SCH ×5 (05:30→22:30)
[2017-04-06 05:53] LABS: Magnesium 2.3 MG/DL (1.8-2.4); Potassium 4.2 MMOL/L (3.5-5.1)
--- NOTE | 2017-04-06 06:24 | Cardiothoracic Progress Note ---
Cardiothoracic Subjective Interval history: Patient had a good night. Vital signs have been stable and he has been breathing comfortably. He is gradually increasing his activity as tolerated. Overall his progress appears satisfactory. Exam (Progress Note) - Constitutional Vitals: Period Temp Pulse Resp BP Sys/Guzman Pulse Ox Last 24 Hr 97.6 F-98.4 F 75-87 16-20 118-144/58-87 91-99 Result/EKG - Labs CBC & BMP: 04/05/17 05:39 04/06/17 04:07 Labs: Laboratory Results - last 24 hr 04/05/17 04/05/17 04/05/17 05:39 05:39 05:39 Platelet Estimate Decreased Polychromasia Slight Hypochromasia Slight Microcytosis 2+ Morphology Comment Sodium 139 Potassium 3.6 Chloride 103 Carbon Dioxide 26 Anion Gap 13.6 BUN 37 H Creatinine 1.90 H GFR Calculation 39 BUN/Creatinine Ratio 19.00 Glucose 126 H POC Glucose Calculated Osmolality 287.5 Calcium 7.9 L Magnesium 2.3 Total Bilirubin Direct Bilirubin Indirect Bilirubin AST ALT Alkaline Phosphatase Total Creatine Kinase CK-MB (CK-2) CK and CKMB Interp Troponin I Total Protein Albumin Globulin Albumin/Globulin Ratio Triglycerides 197 H Cholesterol 77 LDL Cholesterol 30.0 VLDL Cholesterol 39.4 HDL Cholesterol 29 L Heart Disease Risk Ratio 2.66 04/05/17 04/05/17 04/05/17 05:39 07:31 11:40 Platelet Estimate Polychromasia Hypochromasia Microcytosis Morphology Comment Sodium 139 Potassium 3.7 Chloride 103 Carbon Dioxide 25 Anion Gap 14.7 BUN 37 H Creatinine 1.90 H GFR Calculation 39 BUN/Creatinine Ratio 19.00 Glucose 125 H POC Glucose 155 H 305 H Calculated Osmolality 286.5 Calcium 7.9 L Magnesium Total Bilirubin 0.50 Direct Bilirubin 0.20 Indirect Bilirubin 0.3 AST 26 ALT 27 Alkaline Phosphatase 49 Total Creatine Kinase 227 D CK-MB (CK-2) 5.4 H D CK and CKMB Interp 2.4 Troponin I 3.210 H D Total Protein 5.7 L Albumin 3.0 L Globulin 2.7 Albumin/Globulin Ratio 1.1 Triglycerides Cholesterol LDL Cholesterol VLDL Cholesterol HDL Cholesterol Heart Disease Risk Ratio 04/05/17 04/05/17 04/06/17 16:18 20:29 04:07 Platelet Estimate Polychromasia Hypochromasia Microcytosis Morphology Comment Sodium 136 Potassium 4.2 Chloride 101 Carbon Dioxide 25 Anion Gap 14.2 BUN 30 H Creatinine 1.60 H GFR Calculation 48 BUN/Creatinine Ratio 18.00 Glucose 247 H POC Glucose 326 H 303 H Calculated Osmolality 285.0 Calcium 8.0 L Magnesium 2.3 Total Bilirubin Direct Bilirubin Indirect Bilirubin AST ALT Alkaline Phosphatase Total Creatine Kinase CK-MB (CK-2) CK and CKMB Interp Troponin I Total Protein Albumin Globulin Albumin/Globulin Ratio Triglycerides Cholesterol LDL Cholesterol VLDL Cholesterol HDL Cholesterol Heart Disease Risk Ratio Quality Measures - VTE Contraindication to Pharmacological VTE Prophylaxis: High Risk of Bleeding Specialty Discharge - Follow Up or Referrals
[2017-04-06] MEDS: DILTIAZEM CD 120 MG CAPSULE PO SCH ×2 (09:04→20:36)
[2017-04-06] MEDS: DOCUSATE SODIUM 100 MG CAPSULE PO SCH (09:05)
[2017-04-06] MEDS: metFORMIN 500 MG TABLET PO SCH (09:05)
[2017-04-06] MEDS: MAGNESIUM CHLORIDE 64 MG TABLET PO SCH ×2 (09:05→20:35)
[2017-04-06] MEDS: VITAMIN E 400 UNIT CAPSULE PO SCH (09:05)
[2017-04-06] MEDS: FERROUS SULFATE 325 MG TABLET PO SCH (09:05)
[2017-04-06] MEDS: GEMFIBROZIL 600 MG TABLET PO SCH ×2 (09:05→20:35)
[2017-04-06] MEDS: MULTIVITAMIN (OCUVITE) TABLET PO SCH (09:05)
[2017-04-06] MEDS: GLIMEPIRIDE 4 MG TABLET PO SCH ×2 (09:06→16:59)
[2017-04-06] MEDS: MULTIVITAMIN (CENTRUM) TABLET PO SCH (09:06)
[2017-04-06] MEDS: AMIODARONE 200 MG TABLET PO SCH ×2 (09:06→20:36)
[2017-04-06] MEDS: FUROSEMIDE 20 MG TABLET PO SCH (09:06)
[2017-04-06] MEDS: GABAPENTIN 300 MG CAPSULE PO SCH ×2 (09:06→20:36)
[2017-04-06] MEDS: PANTOPRAZOLE 40 MG TABLET PO SCH (09:06)
[2017-04-06] MEDS: OMEGA 3 ACID ETHYL ESTERS 1 GM CAPSULE PO SCH (09:06)
[2017-04-06] MEDS: sitaGLIPtin 100 MG TABLET PO SCH (09:06)
[2017-04-06] MEDS: CARVEDILOL 6.25 MG TABLET PO SCH ×2 (09:06→16:59)
[2017-04-06] MEDS: INSULIN NPH 100 UNIT/ML SUBCUT SCH ×2 (09:07→17:00)
[2017-04-06] MEDS: INSULIN REGULAR 100 UNIT/ML SUBCUT SCH ×4 (09:07→20:36)
[2017-04-06] MEDS: CHLORHEXIDINE 0.12% ORAL RINSE 60 ML BOTTLE SWISH/SPIT SCH ×2 (09:08→20:41)
--- NOTE | 2017-04-06 10:15 | Cardiology Progress Note ---
<Rula Cordova E - Last Filed: 04/06/17 10:30> Assessment and Plan - Time spent with patient Time spent with patient: Greater than 30 minutes (1) Diabetes Problem details: Type 2 diabetes mellitus managed in the first 24 postoperative hours by following IV insulin protocol. Serum glucose remains unacceptably elevated. I increased her NPH dose. Continue sliding scale protocol coverage, and resumed all of patient's home oral diabetes medications. Status: Chronic Assessment and plan: SEE PLAN OF CARE LISTED BELOW Current Visit: Yes Qualifiers: Diabetes mellitus type: type 2 (2) Hypertension Problem details: Well-controlled postoperatively; continue current treatment with Coreg, diltiazem, and Lasix. Status: Chronic Assessment and plan: SEE PLAN OF CARE LISTED BELOW Current Visit: Yes (3) Coronary artery disease Status: Chronic Assessment and plan: SEE PLAN OF CARE LISTED BELOW Current Visit: Yes Qualifiers: Coronary Disease-Associated Artery/Lesion type: [place] artery [place] vs. transplanted heart: [place] heart Associated angina: without angina Qualified Code(s): I25.10 - Atherosclerotic heart disease of [place] coronary artery without angina pectoris (4) Atrial fibrillation Problem details: Paroxysmal; early postoperative period patient has maintained normal sinus rhythm. Systemic coagulation per consulting dryer and washer mechanic and cardiothoracic surgery service. Patient is receiving treatment dose subQ Lovenox Status: Chronic Assessment and plan: SEE PLAN OF CARE LISTED BELOW Current Visit: Yes (5) S/P CABG (coronary artery bypass graft) Problem details: Three-vessel coronary artery disease; internal mammary graft to the anterior descending coronary artery and saphenous vein graft to the obtuse marginal and right coronary arteries 04/02/2017 (postop day 3). Status : Chronic Assessment and plan: SEE PLAN OF CARE LISTED BELOW Current Visit: Yes (6) Anemia Problem details: Multifactorial including chronic disease and acute surgical blood loss. Patient remains hemodynamically stable. Continue monitoring. There is no indication for immediate blood product transfusion at present. Status: Acute Assessment and plan: SEE PLAN OF CARE LISTED BELOW Current Visit: Yes (7) Dyslipidemia Problem details: Receiving Crestor. Check fasting lipid profile in a.m. Status: Chronic Assessment and plan: SEE PLAN OF CARE LISTED BELOW Current Visit: Yes Cardiology - PN: Subj Interval history: RULA WILL COMPLETE OIL FIELD LABORER: DR. BAUTISTA SUMMARY: Mr. Mathew, 67WM, underwent elective cardiac catheterization April 01, 2017 revealing severe three-vessel CAD, EF 60%. April 02, 2017 underwent CABG 3 (SUE - LAD, SVG - OM, SVG - RCA). Tolerated the procedure well and without complication. He has been housed on our telemetry unit over the weekend. Prior history of atrial fibrillation for which he takes Eliquis for stroke prevention. This has not yet been restarted post CABG. Amiodarone was initiated post CABG and he remains in normal sinus rhythm. Currently taking aspirin, beta-veronika, lipid-lowering agent. SANTOS inhibitor has not been reinitiated post CABG in favor of using a non-dihydropyridine for rate control. APRIL 06, 2017: Postop day 4. Mr. Mathew continues to improve. He did require transfusion after surgery, anemia has since improved. When deemed stable, will reinitiate Eliquis. Currently taking therapeutic doses of Lovenox BID. CHADVASC SCORE 4. Dr. Blake has recommended continuing Amiodarone 200 mg twice daily through April 10, 2017. At that time, may be decreased to once daily. Will verify physical therapy continues to work with patient. He is using incentive spirometry frequently. Wounds are healing well. Will further discuss with Dr. Moya and await additional recommendations. ASSESSMENT/PLAN: 1. CAD - 3 vessel CAD now status post revascularization. On aspirin, beta- veronika, lipid-lowering agent. At this time, favor calcium channel veronika for rate control rather than SANTOS inhibitor. We will reincorporate SANTOS when able. 2. S/P CABG - POD 4. Improving daily. Continued physical therapy. 3. HYPERTENSION - well controlled. 4. DYSLIPIDEMIA - LDL at goal (30). Continue lipid-lowering agent. 5. ATRIAL FIBRILLATION -appears to have no paroxysms of atrial fibrillation for the past 72 hours. Amiodarone 200 twice daily with plans to decrease to once daily April 10, 2017 should the patient remain in normal sinus rhythm. Eliquis for stroke prevention when anemia stable post surgery. 6. DIABETES - Hospitalist recently consulted and adjusting medications for better control 7. ANEMIA - continue to follow hemoglobin and hematocrit daily Exam (Progress Note) - Constitutional Vitals: Period Temp Pulse Resp BP Sys/Guzman Pulse Ox Last 24 Hr 97.7 F-98.4 F 75-87 16-20 118-147/58-87 91-99 Exam: General: [Appears well with no apparent distress.] [Pleasant and cooperative. ] [Appears comfortable.] HEENT: [PERRL, normocephalic, atraumatic. Mucous membranes moist. No jaundice noted. Conjunctiva moist and clear, sclerae anicteric] Neck: No JVD/HJR, no thyromegaly or lymphadenopathy noted. No carotid bruit appreciated Cardiac: [Regular rate and rhythm.] [No murmur, rub or gallop.] Sternotomy healing well. Dressing dry and intact. EPW intact. Lungs: [Scant crackles in the bases which improved with cough. Symmetrical chest wall movement noted] Using oxygen only intermittently. Abdomen: Soft, bowel sounds normoactive. Nontender and nondistended. No abdominal bruit or thrill noted. No masses noted. Musculoskeletal: No fluid collection. Decreased range of motion is noted. Extremities: No clubbing, cyanosis noted. [ No edema noted.] Upper extremity pulses 2+. Lower extremity pulses 2+. Capillary refill less than 3 seconds. Skin: No unusual lesions or rashes. No skin breakdown appreciated. Bilateral lower extremity SVG site healing well without dehiscence Neuro: Awake, alert and oriented 3. Moves all extremities well without hemiparesis or paralysis. No essential tremor is appreciated. Result/EKG - Labs CBC & BMP: 04/05/17 05:39 04/06/17 04:07 Lab Results: I have reviewed the past 24 hour labs Labs: Laboratory Results - last 24 hr 04/05/17 04/05/17 04/05/17 11:40 16:18 20:29 Sodium Potassium Chloride Carbon Dioxide Anion Gap BUN Creatinine GFR Calculation BUN/Creatinine Ratio Glucose POC Glucose 305 H 326 H 303 H Calculated Osmolality Calcium Magnesium 04/06/17 04/06/17 04:07 08:02 Sodium 136 Potassium 4.2 Chloride 101 Carbon Dioxide 25 Anion Gap 14.2 BUN 30 H Creatinine 1.60 H GFR Calculation 48 BUN/Creatinine Ratio 18.00 Glucose 247 H POC Glucose 257 H Calculated Osmolality 285.0 Calcium 8.0 L Magnesium 2.3 - EKG EKG results: interpreted by me EKG shows: sinus rhythm Quality Measures - VTE Contraindication to Pharmacological VTE Prophylaxis: High Risk of Bleeding Specialty Discharge - Follow Up or Referrals <Cesar Moya - Last Filed: 04/06/17 14:16> Cardiology - PN: Subj Interval history: His hematocrit has dropped from 28-24 over the last 48 hours and we will reevaluate where we are with his CBC in the morning. He may require holding his Eliquis for now until we can get this stabilized. Exam (Progress Note) - Constitutional Vitals: Period Temp Pulse Resp BP Sys/Guzman Pulse Ox Last 24 Hr 97.7 F-98.4 F 75-87 16-20 122-147/58-87 91-99 Result/EKG - Labs CBC & BMP: 04/05/17 05:39 04/06/17 04:07 Labs: Laboratory Results - last 24 hr 04/05/17 04/05/17 04/06/17 16:18 20:29 04:07 Sodium 136 Potassium 4.2 Chloride 101 Carbon Dioxide 25 Anion Gap 14.2 BUN 30 H Creatinine 1.60 H GFR Calculation 48 BUN/Creatinine Ratio 18.00 Glucose 247 H POC Glucose 326 H 303 H Calculated Osmolality 285.0 Calcium 8.0 L Magnesium 2.3 04/06/17 04/06/17 08:02 11:45 Sodium Potassium Chloride Carbon Dioxide Anion Gap BUN Creatinine GFR Calculation BUN/Creatinine Ratio Glucose POC Glucose 257 H 314 H Calculated Osmolality Calcium Magnesium
[2017-04-06] MEDS: ENOXAPARIN 80 MG/0.8 ML SYRINGE SUBCUT SCH ×2 (12:37→22:30)
--- NOTE | 2017-04-06 14:44 | Hospitalist Progress Note ---
Assessment and Plan (1) Diabetes Status: Acute Assessment and plan: resume home medications add SSI and lantus Current Visit: Yes Qualifiers: Diabetes mellitus type: type 2 (2) Hypertension Problem details: Well-controlled postoperatively; continue current treatment with Coreg, diltiazem, and Lasix. Status: Chronic Current Visit: Yes Qualifiers: Hypertension type: essential hypertension Qualified Code(s): I10 - Essential (primary) hypertension (3) Coronary artery disease Status: Chronic Current Visit: Yes Qualifiers: Coronary Disease-Associated Artery/Lesion type: [place] artery [place] vs. transplanted heart: [place] heart Associated angina: without angina Qualified Code(s): I25.10 - Atherosclerotic heart disease of [place] coronary artery without angina pectoris (4) S/P CABG (coronary artery bypass graft) Problem details: Three-vessel coronary artery disease; internal mammary graft to the anterior descending coronary artery and saphenous vein graft to the obtuse marginal and right coronary arteries 04/02/2017 (postop day 3). Status : Chronic Current Visit: Yes (5) Dyslipidemia Problem details: Receiving Crestor. Check fasting lipid profile in a.m. Status: Chronic Current Visit: Yes Hospitalist: Subjective Interval history: Patient seen and examined. at the bedside. He reports being on Amaryl, Januvia, metformin and being prescribed Lantus immediately before hospitalization. He continues to have elevated blood sugars. She has no other complaints. Exam - Constitutional Vitals: Period Temp Pulse Resp BP Sys/Guzman Pulse Ox Last 24 Hr 97.7 F-98.4 F 75-87 16-20 122-147/58-87 91-99 Exam: Constitutional System: No distress. No tremulousness. Head: Normocephalic, atraumatic. Ears, Nose and Throat System: No pain or tenderness. No epistaxis or discharge Eyes System: Pupils equal, round, and reactive. Extraocular muscles intact. Neck: Supple, without adenopathy, No jugular venous distention. No thyromegaly, neck mass, or prior surgery apparent. Respiratory System: Chest clear to auscultation. Cardiovascular System: Heart with regular rate and rhythm. No murmur. GI System: Abdomen soft, nontender. Normo active bowel sounds present. Musculoskeletal System: limbs with no pedal edema. Full distal pulses. Bilateral lower extremity vein graft sites are clean dry and intact. Neurological System: No discernable sensory deficit. No aphasia Psychiatric System: Conversation is rational Results - Labs CBC & BMP: 04/05/17 05:39 04/06/17 04:07 Lab Results: I have reviewed the past 24 hour labs Quality Measures - VTE Contraindication to Pharmacological VTE Prophylaxis: High Risk of Bleeding Specialty Discharge - Follow Up or Referrals
[2017-04-06] MEDS: ZALEPLON 5 MG CAPSULE PO PRN (20:35)
[2017-04-06] MEDS: ASPIRIN EC 81 MG TABLET PO SCH (20:35)
[2017-04-06] MEDS: ROSUVASTATIN 20 MG TABLET PO SCH (20:35)
[2017-04-06] MEDS ORDERED: INSULIN GLARGINE 100 UNIT/ML SUBCUT SCH (21:00)
[2017-04-07] MEDS: ACYCLOVIR 200 MG CAPSULE PO SCH ×2 (05:29→09:07)
[2017-04-07 05:55] LABS: Basophils % 0.4 % (0.0-0.8); Eosinophils # 0.2 10*3/uL (0.0-0.87); Eosinophils % 2.6 % (0.00-10.9); Hematocrit 24.4 VOL% (42.0-52.0); Hemoglobin 8.3 GM/DL (14.0-18.0); Immature Granulocytes Absolute 0.07 #; Lymphocytes # 1.3 10*3/uL (1.4-4.0); Lymphocytes % 18.6 % (21.2-54.2); Mean Corpuscular Hemoglobin 29 PG (27-34); Mean Corpuscular Volume 86.5 FL (87-102); Mean Platelet Volume 12.7 FL (9.6-12.0); Monocytes # 0.8 10*3/uL (0.11-0.8); Monocytes % 12.3 % (1.7-12.7); Neutrophils # 4.5 10*3/uL (1.4-7.4); Neutrophils % 65.1 % (38.7-73.9); Platelet Count 115 T/CUMM (130-400); Red Blood Count 2.82 MC/CUMM (3.8-5.5); White Blood Count 6.8 T/CUMM (4-12)
[2017-04-07 06:28] LABS: Alanine Aminotransferase 26 U/L (16-61); Albumin 2.9 G/DL (3.4-5.0); Alkaline Phosphatase 54 U/L (45-117); Aspartate Amino Transferase 20 U/L (0-37); Bilirubin,Indirect 0.3 MG/DL (0.0-1.0); Blood Urea Nitrogen 24 MG/DL (7-18); Calcium 8.2 MG/DL (8.5-10.1); Glucose 160 MG/DL (74-106); Magnesium 2.3 MG/DL (1.8-2.4); Osmolality,Calculated 283.5 MOS/KG (273-304); Potassium 4.1 MMOL/L (3.5-5.1); Sodium 139 MMOL/L (136-145); Total Protein 5.7 G/DL (6.4-8.3)
--- NOTE | 2017-04-07 07:35 | XRay Report ---
Exam: XR chest 2V Indication: Shortness of breath status post CABG Comparison study: Prior chest radiograph 04/05/2017 Findings: Right-sided central venous catheter is in similar position. Postsurgical changes of prior median sternotomy are similar to prior. Cardiac silhouette is enlarged, essentially unchanged. Right lung and left upper lobe are predominantly clear. Mild elevation of the left hemidiaphragm with left basilar opacities are not significantly changed from prior. Impression: Slight improved aeration within the left lung base with residual elevation of left hemidiaphragm and probable left basilar atelectasis and/or trace left pleural effusion. PROCEDURE INTERPRETED AT [facility], [place] DEPARTMENT OF RADIOLOGY Final Report Signed by: Idris Causey
[2017-04-07 08:17] VITALS: BP 133/72
[2017-04-07] MEDS ORDERED: DIPHENOXYLATE/ATROPINE 2.5-0.025 MG TABLET PO PRN (08:57)
[2017-04-07] MEDS ORDERED: diphenhydrAMINE CAP 25 MG CAPSULE PO PRN (08:57)
[2017-04-07] MEDS ORDERED: APIXABAN 5 MG TABLET PO SCH (09:00)
[2017-04-07] MEDS ORDERED: VITAMIN E 400 UNIT CAPSULE PO SCH (09:00)
[2017-04-07] MEDS ORDERED: MULTIVITAMIN (CENTRUM) TABLET PO SCH (09:00)
[2017-04-07] MEDS ORDERED: OMEGA 3 ACID ETHYL ESTERS 1 GM CAPSULE PO SCH (09:00)
[2017-04-07] MEDS ORDERED: DILTIAZEM CD 120 MG CAPSULE PO SCH (09:00)
[2017-04-07] MEDS ORDERED: GABAPENTIN 300 MG CAPSULE PO SCH (09:00)
[2017-04-07] MEDS ORDERED: MAGNESIUM CHLORIDE 64 MG TABLET PO SCH (09:00)
[2017-04-07] MEDS: INSULIN NPH 100 UNIT/ML SUBCUT SCH (09:01)
[2017-04-07] MEDS: INSULIN REGULAR 100 UNIT/ML SUBCUT SCH (09:02)
[2017-04-07] MEDS: GEMFIBROZIL 600 MG TABLET PO SCH (09:02)
[2017-04-07] MEDS: MAGNESIUM CHLORIDE 64 MG TABLET PO SCH (09:02)
[2017-04-07] MEDS: GLIMEPIRIDE 4 MG TABLET PO SCH (09:02)
[2017-04-07] MEDS: MULTIVITAMIN (CENTRUM) TABLET PO SCH (09:02)
[2017-04-07] MEDS: GABAPENTIN 300 MG CAPSULE PO SCH (09:03)
[2017-04-07] MEDS: sitaGLIPtin 100 MG TABLET PO SCH (09:03)
[2017-04-07] MEDS: PANTOPRAZOLE 40 MG TABLET PO SCH (09:03)
[2017-04-07] MEDS: DILTIAZEM CD 120 MG CAPSULE PO SCH (09:03)
[2017-04-07] MEDS: CARVEDILOL 6.25 MG TABLET PO SCH (09:03)
--- NOTE | 2017-04-07 09:03 | Discharge Summary ---
Hospital Course - Hospital Course Hospital Course: History of present illness: Patient is a 67-year-old man who has had symptoms of increasing substernal chest discomfort over the past month. He was admitted for elective cardiac catheterization which demonstrated critical three-vessel disease and the patient was referred for bypass surgery. Past medical history review of systems social history and family history are documented in his admission note. Hospital course: Patient was taken to surgery where three-vessel bypass grafting was carried out without incident. Patient's intraoperative and postoperative courses were essentially uncomplicated. Patient did revert to atrial fibrillation which had been his preoperative rate and rhythm. He was placed back on Eliquis for anticoagulation at the time of discharge. He is seeing Dr. Morejon for further evaluation of his dysrhythmia. Discharge medications are listed below and he has been asked to return for follow-up in 4 weeks. Specialty Discharge - Follow Up or Referrals Follow up with: Kobe Larry MD [Physician] - 04/28/17 10:15 am Discharge Plan - Discharge Data Condition at Discharge: Stable Discharge Diet: advance to your usual diet Activity: resume usual activities as tolerated Hygiene: no restrictions Weight Bearing at Discharge: full weight bearing Driving: not until seen by doctor - Discharge Medications New Carvedilol [Coreg] 6.25 mg PO BID W/MEALS tablet Diphenoxylate/Atrop 2.5-0.025 [Lomotil Tab] 2 tablet PO Q6H PRN tablet PRN Reason: Diarrhea Glimepiride [Amaryl] 4 mg PO BID W/MEALS tablet Multivitamin (Centrum) [Centrum Tab] 1 tablet PO DAILY tablet Vitamin E Cap 400 unit PO DAILY capsule Acyclovir Cap/Tab [Zovirax Cap/Tab] 400 mg PO 5X DAILY capsule Amiodarone Tab [Cordarone Tab] 200 mg PO BID tablet Apixaban [Eliquis] 5 mg PO BID tablet Aspirin EC Tab 81 mg PO BEDTIME tablet Carvedilol [Coreg] 6.25 mg PO BID W/MEALS tablet Diltiazem Cd Cap [Cardizem CD] 120 mg PO BID capsule Diltiazem Cd Cap [Cardizem CD] 120 mg PO BID capsule diphenhydrAMINE CAP [Benadryl Cap] 25 mg PO Q6H PRN capsule PRN Reason: Agitation diphenhydrAMINE CAP [Benadryl Cap] 25 mg PO Q6H PRN capsule PRN Reason: Agitation Diphenoxylate/Atrop 2.5-0.025 [Lomotil Tab] 2 tablet PO Q6H PRN tablet PRN Reason: Loose Stool Docusate Sodium Cap [Colace Cap] 100 mg PO DAILY capsule Ferrous Sulfate Tab [Feosol Original Tab] 325 mg PO DAILY tablet Furosemide Tab [Lasix Tab] 20 mg PO DAILY tablet Gabapentin Cap/Tab [Neurontin Cap/Tab] 300 mg PO BID capsule Gabapentin Cap/Tab [Neurontin Cap/Tab] 300 mg PO BID capsule Gemfibrozil [Lopid] 600 mg PO BID tablet Magnesium Chloride [Slow Mag] 64 mg PO BID tablet Magnesium Chloride [Slow Mag] 64 mg PO BID tablet Magnesium Hydroxide Susp [Milk of Magnesia] 30 ml PO Q6H PRN PRN Reason: Constipation Methocarbamol Tab [Robaxin Tab] 750 mg PO DAILY PRN tablet PRN Reason: Muscle Spasm Multivitamin (Centrum) [Centrum Tab] 1 tablet PO DAILY tablet Multivitamin (Ocuvite) [Ocuvite] 1 tablet PO DAILY tablet [place] 3 Acid Ethyl Esters [Lovaza] 1 gm PO DAILY capsule [place] 3 Acid Ethyl Esters [Lovaza] 1 gm PO DAILY capsule oxyCODONE/ACETAMINOPHEN 5-325 [Percocet 5-325] 1 tablet PO Q4H PRN tablet PRN Reason: Pain Mild (1-3) Rosuvastatin [Crestor] 40 mg PO BEDTIME tablet Rosuvastatin [Crestor] 40 mg PO BEDTIME tablet sitaGLIPtin [Januvia] 100 mg PO DAILY tablet Vitamin E Cap 400 unit PO DAILY capsule Zaleplon [Sonata] 5 mg PO BEDTIME PRN capsule PRN Reason: Sleep Continue diphenhydrAMINE CAP [Benadryl Cap] 25 mg PO Q6H PRN PRN Reason: Itching Methocarbamol Tab [Robaxin Tab] 750 mg PO DAILY PRN PRN Reason: Muscle Spasm Lidocaine 5% Patch [Lidoderm 5% Patch] 1 patch TRANSDERM DAILY Diphenoxylate/Atrop 2.5-0.025 [Lomotil Tab] 2 tablet PO Q6H PRN PRN Reason: Diarrhea Acyclovir [Zovirax Cap/Tab] 400 mg PO 5X DAILY [place]-3 Fatty Acids [Fish Oil] 1,000 mg PO DAILY Apixaban [Eliquis] 5 mg PO BID Zolpidem Tartrate [Ambien Cr] 12.5 mg PO BEDTIME Magnesium Chloride [Slow Mag] 64 mg PO BID Multivitamin [One Daily] 1 each PO DAILY Diltiazem Cd Cap [Cardizem CD] 120 mg PO BID Aspirin [Ecotrin] 81 mg PO BEDTIME Vitamin E 400 unit PO DAILY Glimepiride [Amaryl] 4 mg PO BID W/MEALS Lisinopril 20 mg PO DAILY Gemfibrozil 600 mg PO BID metFORMIN [Glucophage] 1,000 mg PO BID W/MEALS Esomeprazole Magnesium [Nexium] 40 mg PO BEDTIME Umeclidinium Brm/Vilanterol Tr [Anoro Ellipta] 1 puff INH DAILY Hydrocodone/Acetaminophen [Lortab 10-325 mg Tablet] 1 each PO DIRECTED PRN #20 tablet PRN Reason: Pain Multivit-Min/FA/Lutein/Zeaxant [Icaps Mv Tablet] 1 tablet PO DAILY Furosemide 20 mg PO DAILY Gabapentin 300 mg PO BID Rosuvastatin Calcium [Crestor] 40 mg PO BEDTIME Carvedilol [Coreg] 6.25 mg PO BID Discontinued sitaGLIPtin [Januvia] 100 mg PO DAILY - Follow Up or Referral Follow Up: Kobe Larry MD [Physician] - 04/28/17 10:15 am - Forms/Instructions Instructions: Heart Healthy Diet (GEN), Coronary Artery Bypass Graft, Shingles Roofer Helper (GEN), Sternal Precautions (GEN) Exam - Constitutional Vitals: Period Temp Pulse Resp BP Sys/Guzman Pulse Ox Last 24 Hr 96.9 F-97.8 F 69-82 16-20 110-147/55-77 96-98 Discharge Results Procedures and tests throughout hospitalization: Pending Orders 04/01/17 11:43 Fresh Frozen Plasma Routine Red Blood Cells Leuko Red Routine Single Donor Platelets Routine Type and Screen Routine 04/08/17 04:00 XR chest 2V IN AM Bilirubin Profile Adult IN AM Comp Blood Count Auto Diff IN AM Comprehensive Metabolic Panel IN AM Hepatic (Liver) Panel IN AM Magnesium IN AM Troponin,CKMB & Ck Total IN AM 04/09/17 04:00 CBC [Comp Blood Count Auto Diff] Routine Labs on day of discharge: Labs from last 24 hours 04/07/17 04/07/17 04/07/17 07:55 04:05 04:05 WBC 6.8 RBC 2.82 L Hgb 8.3 L Hct 24.4 L MCV 86.5 L MCH 29 MCHC 34.0 RDW 13.0 Plt Count 115 L MPV 12.7 H Neut % (Auto) 65.1 Lymph % (Auto) 18.6 L [place] % (Auto) 12.3 Eos % (Auto) 2.6 Baso % (Auto) 0.4 Neut # (Auto) 4.5 Lymph # (Auto) 1.3 L [place] # (Auto) 0.8 Eos # (Auto) 0.2 Baso # (Auto) 0.0 Immature Gran % 1.0 Nucleated RBC % 0.0 Immature Gran # 0.07 Nucleated RBCs # 0.00 Sodium 139 Potassium 4.1 Chloride 103 Carbon Dioxide 28 Anion Gap 12.1 BUN 24 H Creatinine 1.40 H GFR Calculation 58 BUN/Creatinine Ratio 17.00 Glucose 160 H POC Glucose 194 H Calculated Osmolality 283.5 Calcium 8.2 L Magnesium 2.3 Total Bilirubin 0.50 Direct Bilirubin 0.20 Indirect Bilirubin 0.3 AST 20 ALT 26 Alkaline Phosphatase 54 Total Creatine Kinase 79 D CK-MB (CK-2) 1.6 Troponin I 1.740 H D Total Protein 5.7 L Albumin 2.9 L Globulin 2.8 Albumin/Globulin Ratio 1.0 L 04/06/17 04/06/17 04/06/17 18:50 15:23 11:45 WBC RBC Hgb Hct MCV MCH MCHC RDW Plt Count MPV Neut % (Auto) Lymph % (Auto) [place] % (Auto) Eos % (Auto) Baso % (Auto) Neut # (Auto) Lymph # (Auto) [place] # (Auto) Eos # (Auto) Baso # (Auto) Immature Gran % Nucleated RBC % Immature Gran # Nucleated RBCs # Sodium Potassium Chloride Carbon Dioxide Anion Gap BUN Creatinine GFR Calculation BUN/Creatinine Ratio Glucose POC Glucose 220 H 276 H 314 H Calculated Osmolality Calcium Magnesium Total Bilirubin Direct Bilirubin Indirect Bilirubin AST ALT Alkaline Phosphatase Total Creatine Kinase CK-MB (CK-2) Troponin I Total Protein Albumin Globulin Albumin/Globulin Ratio DS: Provider Date of admission: 04/01/17 11:28 Attending physician on admission: Kobe Larry MD Consults: 04/01/17 11:28 Consult to Dietitian [CONS] Routine Reason for Dietitian: Other Consult Comment: low salt, low cholesterol, diet 04/03/17 06:15 Consult to Cardiac Rehabilitation [CONS] Routine Reason for Cardiac Rehabilitation: Other Consult Comment: Post CABG/heart surgery Consult to Diabetes Center, Educator [CONS] Routine Reason for Export Freight Clerk: Diabetes Education Initial Insulin Education Consult Comment: insulin education Consult to Dietitian [CONS] Routine Reason for Dietitian: Dietary Consult Consult Comment: Cardiac, low salt, low cholesterol diet Consult to Physical Therapy [CONS] Routine Reason for Physical Therapy: Other Consult Comment: CV Rehab Discharging clinician: Kobe Larry MD Expected date of discharge: 04/07/17
[2017-04-07] MEDS: AMIODARONE 200 MG TABLET PO SCH (09:04)
[2017-04-07] MEDS: MULTIVITAMIN (OCUVITE) TABLET PO SCH (09:04)
[2017-04-07] MEDS: FUROSEMIDE 20 MG TABLET PO SCH (09:04)
[2017-04-07] MEDS: FERROUS SULFATE 325 MG TABLET PO SCH (09:04)
[2017-04-07] MEDS: VITAMIN E 400 UNIT CAPSULE PO SCH (09:04)
[2017-04-07] MEDS: DOCUSATE SODIUM 100 MG CAPSULE PO SCH (09:04)
[2017-04-07] MEDS: OMEGA 3 ACID ETHYL ESTERS 1 GM CAPSULE PO SCH (09:04)
[2017-04-07] MEDS: CHLORHEXIDINE 0.12% ORAL RINSE 60 ML BOTTLE SWISH/SPIT SCH (09:04)
[2017-04-07] MEDS ORDERED: traMADol 50 MG TABLET PO PRN (09:09)
--- NOTE | 2017-04-07 10:36 | Cardiology Progress Note ---
Assessment and Plan - Time spent with patient Time spent with patient: Greater than 30 minutes (1) Diabetes Status: Chronic Assessment and plan: SEE PLAN OF CARE LISTED BELOW Qualifiers: Diabetes mellitus type: type 2 (2) Hypertension Problem details: Well-controlled postoperatively; continue current treatment with Coreg, diltiazem, and Lasix. Status: Chronic Assessment and plan: SEE PLAN OF CARE LISTED BELOW Qualifiers: Hypertension type: essential hypertension Qualified Code(s): I10 - Essential (primary) hypertension (3) Coronary artery disease Status: Chronic Assessment and plan: SEE PLAN OF CARE LISTED BELOW Qualifiers: Coronary Disease-Associated Artery/Lesion type: [place] artery [place] vs. transplanted heart: [place] heart Associated angina: without angina Qualified Code(s): I25.10 - Atherosclerotic heart disease of [place] coronary artery without angina pectoris (4) Atrial fibrillation Problem details: Paroxysmal; early postoperative period patient has maintained normal sinus rhythm. Systemic coagulation per consulting marketing director and cardiothoracic surgery service. Patient is receiving treatment dose subQ Lovenox Status: Chronic Assessment and plan: SEE PLAN OF CARE LISTED BELOW (5) S/P CABG (coronary artery bypass graft) Problem details: Three-vessel coronary artery disease; internal mammary graft to the anterior descending coronary artery and saphenous vein graft to the obtuse marginal and right coronary arteries 04/02/2017 (postop day 3). Status : Chronic Assessment and plan: SEE PLAN OF CARE LISTED BELOW (6) Anemia Problem details: Multifactorial including chronic disease and acute surgical blood loss. Patient remains hemodynamically stable. Continue monitoring. There is no indication for immediate blood product transfusion at present. Status: Acute Assessment and plan: SEE PLAN OF CARE LISTED BELOW (7) Dyslipidemia Problem details: Receiving Crestor. Check fasting lipid profile in a.m. Status: Chronic Assessment and plan: SEE PLAN OF CARE LISTED BELOW Cardiology - PN: Subj Interval history: IMPREGNATING TANK OPERATOR: DR. BAUTISTA SUMMARY: Mr. Mathew, 67WM, underwent elective cardiac catheterization April 01, 2017 revealing severe three-vessel CAD, EF 60%. April 02, 2017 underwent CABG 3 (SUE - LAD, SVG - OM, SVG - RCA). Tolerated the procedure well and without complication. He has been housed on our telemetry unit over the weekend. Prior history of atrial fibrillation for which he takes Eliquis for stroke prevention. This has not yet been restarted post CABG. Amiodarone was initiated post CABG and he remains in normal sinus rhythm. Currently taking aspirin, beta-veronika, lipid-lowering agent. SANTOS inhibitor has not been reinitiated post CABG in favor of using a non-dihydropyridine for rate control. APRIL 06, 2017: Postop day 4. Mr. Mathew continues to improve. He did require transfusion after surgery, anemia has since improved. When deemed stable, will reinitiate Eliquis. Currently taking therapeutic doses of Lovenox BID. CHADVASC SCORE 4. Dr. Blake has recommended continuing Amiodarone 200 mg twice daily through April 10, 2017. At that time, may be decreased to once daily. Will verify physical therapy continues to work with patient. He is using incentive spirometry frequently. Wounds are healing well. Will further discuss with Dr. Moya and await additional recommendations. APRIL 07, 2017: Mr. Mathew is doing well. He is scheduled for discharge today. Denies chest pain, heaviness or soreness. Greater than 30 minutes was spent today discussing post CABG expectations. He and his family verbalized understanding of this information. He will be given a 2 week follow-up appointment with Dr. Bautista. ASSESSMENT/PLAN: 1. CAD - 3 vessel CAD now status post revascularization. On aspirin, beta- veronika, lipid-lowering agent. SANTOS inhibitor initiated today. 2. S/P CABG - POD 5. Improving daily. Scheduled for discharge today. 3. HYPERTENSION - well controlled. 4. DYSLIPIDEMIA - LDL at goal (30). Continue lipid-lowering agent. 5. ATRIAL FIBRILLATION - appears to have no paroxysms of atrial fibrillation for the past 96 hours. Amiodarone 200 twice daily with plans to decrease to once daily April 10, 2017. Eliquis being initiated at discharge. 6. DIABETES - Hospitalist has been instrumental in better controlling diabetes 7. ANEMIA - stable Dr. Larry has performed discharge summary. I have personally given a handwritten prescription for the following medications: Aspirin 81 mg orally daily Eliquis 5mg orally twice daily Amiodarone 200 mg orally twice daily. Decrease to Amiodarone 200 mg once daily beginning April 10, 2017. Carvedilol 6.25 mg orally twice daily Diltiazem 120 mg orally twice daily Lisinopril 5 mg orally daily Lasix 20 mg orally daily Crestor 40 mg's orally each evening Also, giving handwrittent Rx for Ultram 50mg orally BID prn pain. #30 with #1 refill Exam (Progress Note) - Constitutional Vitals: Period Temp Pulse Resp BP Sys/Guzman Pulse Ox Last 24 Hr 96.9 F-97.8 F 69-82 16-20 110-133/55-77 96-98 Exam: General: [Appears well with no apparent distress.] [Pleasant and cooperative. ] [Appears comfortable.] HEENT: [PERRL, normocephalic, atraumatic. Mucous membranes moist. No jaundice noted. Conjunctiva moist and clear, sclerae anicteric] Neck: No JVD/HJR, no thyromegaly or lymphadenopathy noted. No carotid bruit appreciated Cardiac: [Regular rate and rhythm.] [No murmur, rub or gallop.] Sternotomy healing well. Dressing dry and intact. EPW intact. Lungs: [Scant crackles in the bases which improved with cough. Symmetrical chest wall movement noted] Using oxygen only intermittently. Abdomen: Soft, bowel sounds normoactive. Nontender and nondistended. No abdominal bruit or thrill noted. No masses noted. Musculoskeletal: No fluid collection. Decreased range of motion is noted. Extremities: No clubbing, cyanosis noted. [ No edema noted.] Upper extremity pulses 2+. Lower extremity pulses 2+. Capillary refill less than 3 seconds. Skin: No unusual lesions or rashes. No skin breakdown appreciated. Bilateral lower extremity SVG site healing well without dehiscence Neuro: Awake, alert and oriented 3. Moves all extremities well without hemiparesis or paralysis. No essential tremor is appreciated. Result/EKG - Labs CBC & BMP: 04/07/17 04:05 04/07/17 04:05 Lab Results: I have reviewed the past 24 hour labs Labs: Laboratory Results - last 24 hr 04/06/17 04/06/17 04/06/17 11:45 15:23 18:50 WBC RBC Hgb Hct MCV MCH MCHC RDW Plt Count MPV Neut % (Auto) Lymph % (Auto) [place] % (Auto) Eos % (Auto) Baso % (Auto) Neut # (Auto) Lymph # (Auto) [place] # (Auto) Eos # (Auto) Baso # (Auto) Immature Gran % Nucleated RBC % Immature Gran # Nucleated RBCs # Sodium Potassium Chloride Carbon Dioxide Anion Gap BUN Creatinine GFR Calculation BUN/Creatinine Ratio Glucose POC Glucose 314 H 276 H 220 H Calculated Osmolality Calcium Magnesium Total Bilirubin Direct Bilirubin Indirect Bilirubin AST ALT Alkaline Phosphatase Total Creatine Kinase CK-MB (CK-2) Troponin I Total Protein Albumin Globulin Albumin/Globulin Ratio 04/07/17 04/07/17 04/07/17 04:05 04:05 07:55 WBC 6.8 RBC 2.82 L Hgb 8.3 L Hct 24.4 L MCV 86.5 L MCH 29 MCHC 34.0 RDW 13.0 Plt Count 115 L MPV 12.7 H Neut % (Auto) 65.1 Lymph % (Auto) 18.6 L [place] % (Auto) 12.3 Eos % (Auto) 2.6 Baso % (Auto) 0.4 Neut # (Auto) 4.5 Lymph # (Auto) 1.3 L [place] # (Auto) 0.8 Eos # (Auto) 0.2 Baso # (Auto) 0.0 Immature Gran % 1.0 Nucleated RBC % 0.0 Immature Gran # 0.07 Nucleated RBCs # 0.00 Sodium 139 Potassium 4.1 Chloride 103 Carbon Dioxide 28 Anion Gap 12.1 BUN 24 H Creatinine 1.40 H GFR Calculation 58 BUN/Creatinine Ratio 17.00 Glucose 160 H POC Glucose 194 H Calculated Osmolality 283.5 Calcium 8.2 L Magnesium 2.3 Total Bilirubin 0.50 Direct Bilirubin 0.20 Indirect Bilirubin 0.3 AST 20 ALT 26 Alkaline Phosphatase 54 Total Creatine Kinase 79 D CK-MB (CK-2) 1.6 Troponin I 1.740 H D Total Protein 5.7 L Albumin 2.9 L Globulin 2.8 Albumin/Globulin Ratio 1.0 L - Diagnostic Findings Procedure: Chest x-ray: report reviewed by me - EKG EKG results: interpreted by nv EKG shows: sinus rhythm Quality Measures - VTE Contraindication to Pharmacological VTE Prophylaxis: High Risk of Bleeding Specialty Discharge - Follow Up or Referrals Follow up with: Kobe Larry MD [Physician] - 04/28/17 10:15 am Severino Bautista MD [Physician] - 04/21/17 2:20 pm
[2017-04-07] MEDS ORDERED: CARVEDILOL 6.25 MG TABLET PO SCH (17:00)
[2017-04-07] MEDS ORDERED: ROSUVASTATIN 20 MG TABLET PO SCH (21:00)
== END 2017-04-07 11:58 | disposition home or self-care (01) | DRG 234 ==
LOC: N.CL 06:36 → N.TELES 11:27 → N.CVR 04-02 10:39 → N.TELES 04-03 10:25
PROVIDERS: ATTEND Internal Medicine Cardiovascular Disease
PROC: CLCCHCL (ICD-10-PCS; 2017-04-01 09:15)

== ENCOUNTER 2017-04-11 06:28 | Inpatient (IN) ==
[2017-04-11] MEDS ORDERED: PROMETHAZINE 25 MG/1 ML VIAL ONE (06:51)
[2017-04-11] MEDS ORDERED: PROMETHAZINE 25 MG/1 ML VIAL IM STA (06:59)
[2017-04-11] MEDS ORDERED: ONDANSETRON 4 MG/2 ML VIAL IV STA (07:03)
[2017-04-11] MEDS ORDERED: ONDANSETRON 4 MG/2 ML VIAL ONE (07:07)
[2017-04-11 07:08] LABS: Basophils % 0.1 % (0.0-0.8); Eosinophils % 0.1 % (0.00-10.9); Hematocrit 24.3 VOL% (42.0-52.0); Immature Granulocytes % 5.5 %; Immature Granulocytes Absolute 0.62 #; Lymphocytes # 1.2 10*3/uL (1.4-4.0); Lymphocytes % 10.5 % (21.2-54.2); Mean Corpuscular HGB Conc 32.9 GM/DL (32-36); Mean Corpuscular Hemoglobin 30 PG (27-34); Mean Corpuscular Volume 91.7 FL (87-102); Mean Platelet Volume 11.9 FL (9.6-12.0); Monocytes % 8.7 % (1.7-12.7); NRBC # 0.04 10*3/uL; Neutrophils # 8.5 10*3/uL (1.4-7.4); Neutrophils % 75.1 % (38.7-73.9); Platelet Count 250 T/CUMM (130-400); Red Blood Count 2.65 MC/CUMM (3.8-5.5); Red Cell Distribution Width 15.2 % (9.3-17.3); White Blood Count 11.4 T/CUMM (4-12)
[2017-04-11] MEDS ORDERED: ALBUTEROL/IPRATROPIUM 3 ML NEB RESP TX STA (07:18)
[2017-04-11 07:21] LABS: INR 1.3; PT Patient Result 14.2 SECS
--- NOTE | 2017-04-11 07:26 | Emergency Department Note ---
IBinh Brooke, am scribing for, and in the presence of, Eliane Marcos DO 07:00 . IHemant Debra, DO, personally performed the services described in this documentation, ascribed by Yue Purcell in my presence, and it is both accurate and complete 726 . Arrival - Arrival Chief Complaint: Nausea/Vomiting/Diarrhea Stated Complaint: throwing up, had open heart surgery less than ED Nursing Triage Note: C/C N/V, short of breath started last night. Pt had triple bypass on 04/02/17. Discharged from hospital on 04/07/17 Mode of Arrival: Wheelchair Limitations: No Limitations Source: Patient, Significant other (), RN Notes Reviewed Time Seen by Provider: 04/11/17 06:48 - History of Present Illness HPI Narrative: Patient is a 67 year old male who presents to the ED with c/o shortness of breath, nausea, and vomiting that started last night. Patient had a heart cath on 04/01/17, triple bypass on 04/02/17, and was discharged on 04/07/17. says Patient has done "fine" until last night. Patient ate supper and then the symptoms started. Patient vomited all night long. says Patient has not been around anyone who has been sick. He denies having any chest pain but says his back is hurting. Patient has PMHx of CAD, HTN, peripheral neuropathy, dyslipidemia, thyroid disorder, NIDDM, COPD, asbestosis, GERD, hemorrhoids, polyps, elevated liver enzymes, back/neck problems, and degenerative disk disease. Onset (ago): day(s) (1) Allergies/Adverse Reactions: Allergies Allergy/AdvReac Type Severity Reaction Status Date / Time shrimp Allergy Mild ITCHING Verified 04/11/17 06:45 Sulindac [From Clinoril] Allergy Mild ITCHING Verified 04/11/17 06:45 Home Medications: Home Medications Medication Instructions Recorded Confirmed Type Acyclovir [Zovirax Cap/Tab] 400 mg PO 5X DAILY 10/26/15 04/01/17 History Apixaban [Eliquis] 5 mg PO BID 10/26/15 04/01/17 History Aspirin [Ecotrin] 81 mg PO BEDTIME 10/26/15 04/01/17 History Diltiazem Cd Cap [Cardizem CD] 120 mg PO BID 10/26/15 04/01/17 History Diphenoxylate/Atrop 2.5-0.025 2 tablet PO Q6H PRN 10/26/15 04/01/17 History [Lomotil Tab] Esomeprazole Magnesium [Nexium] 40 mg PO BEDTIME 10/26/15 04/01/17 History Gemfibrozil 600 mg PO BID 10/26/15 04/01/17 History Glimepiride [Amaryl] 4 mg PO BID W/MEALS 10/26/15 04/01/17 History Lidocaine 5% Patch [Lidoderm 5% 1 patch TRANSDERM DAILY 10/26/15 04/01/17 History Patch] Magnesium Chloride [Slow Mag] 64 mg PO BID 10/26/15 04/01/17 History Methocarbamol Tab [Robaxin Tab] 750 mg PO DAILY PRN 10/26/15 04/01/17 History Multivitamin [One Daily] 1 each PO DAILY 10/26/15 04/01/17 History [place]-3 Fatty Acids [Fish Oil] 1,000 mg PO DAILY 10/26/15 04/01/17 History Umeclidinium Brm/Vilanterol Tr 1 puff INH DAILY 10/26/15 04/01/17 History [Anoro Ellipta] Vitamin E 400 unit PO DAILY 10/26/15 04/01/17 History Zolpidem Tartrate [Ambien Cr] 12.5 mg PO BEDTIME 10/26/15 04/01/17 History diphenhydrAMINE CAP [Benadryl Cap] 25 mg PO Q6H PRN 10/26/15 04/01/17 History metFORMIN [Glucophage] 1,000 mg PO BID W/MEALS 10/26/15 04/01/17 History Hydrocodone/Acetaminophen [Lortab 1 each PO DIRECTED PRN #20 11/02/15 Rx 10-325 mg Tablet] tablet Carvedilol [Coreg] 6.25 mg PO BID 04/01/17 04/01/17 History Furosemide 20 mg PO DAILY 04/01/17 04/01/17 History Gabapentin 300 mg PO BID 04/01/17 04/01/17 History Multivit-Min/FA/Lutein/Zeaxant 1 tablet PO DAILY 04/01/17 04/01/17 History [Icaps Mv Tablet] Rosuvastatin Calcium [Crestor] 40 mg PO BEDTIME 04/01/17 04/01/17 History Amiodarone Tab [Cordarone Tab] 200 mg PO BID tablet 04/07/17 Rx Docusate Sodium Cap [Colace Cap] 100 mg PO DAILY capsule 04/07/17 Rx Ferrous Sulfate Tab [Feosol 325 mg PO DAILY tablet 04/07/17 Rx Original Tab] Lisinopril 5 mg PO DAILY 04/07/17 04/07/17 History Magnesium Hydroxide Susp [Milk of 30 ml PO Q6H PRN 04/07/17 Rx Magnesia] Metformin HCl [Metformin HCl] 1,000 mg PO BID W/MEALS 04/07/17 04/07/17 History Multivitamin (Ocuvite) [Ocuvite] 1 tablet PO DAILY tablet 04/07/17 Rx Zaleplon [Sonata] 5 mg PO BEDTIME PRN capsule 04/07/17 Rx sitaGLIPtin [Januvia] 100 mg PO DAILY tablet 04/07/17 Rx traMADol TAB [Ultram] 50 mg PO BID PRN 04/07/17 04/07/17 History Review of System - Review of System 12 point system: reviewed and no additional remarkable complaints except as stated - Review of System Constitutional: Absent: fever Respiratory: Present: other (shortness of breath). Absent: respiratory distress Cardiovascular: Present: chest pain Gastrointestinal: Present: nausea, vomiting Musculoskeletal: Present: back pain Skin: Absent: rash Medical,Surgical,& Family Hx - Medical History Cardio: History of: Cerebrovascular Disease (A FLUTTER), CAD (5 stents), Hypertension, Cardiovascular Problems (DR LINDQUIST CARDIOVERSION 4-5 YEARS AGO) Neurology: History of: Peripheral Neuropathy (DIABETIC NERVE PAIN) No history of: Seizures HEENT: History of: Eye Problem (READING GLASSES, MACULAR DEGERATION PT GETS SHOTS Q6 WEEKS), Dental Problems (UPPER FULL PLATE) Endocrine: History of: Diabetes Mellitus (NIDDM), Dyslipidemia, Thyroid Disorder Respiratory: History of: COPD, Respiratory Problems (ASBESTOSIS) Genitourinary: History of: Kidney Stones Gastrointestinal: History of: GERD, Hemorrhoids, Liver Problems (ELEVATED ENZYMES IN PAST), Polyps (REMOVED), GI Problems (DIARRHEA) Musculoskeletal: History of: Back/Neck Problems, Degenerative Disk Disease ( FRACTURE 1984 DR JONES PAST HX SPINAL INJECTIONS) Other: History of: Cancer (SKIN RIGHT EAR, SHOULDER) - Surgical History Cardiac Surgeries: Sugical HX of: Femoral-Popliteal Bypass Graft, Cardiac Catheterization (5 STENTS), Cardiac Surgery (Triple Bypass 04/02/17) HEENT Surgeries: Surgical HX of: Eye Surgery (LEFT EYE RETINA SURGERY), Thyroid Surgery (BX), Tonsilectomy & Adenoidectomy Abdominal Surgeries: Surgical HX of: Cholecystectomy, Colonoscopy, EGD Orthopedic Surgeries: Surgical HX of;: Implanted Devices (5 STENTS), Orthopedic Surgery (BILATERAL CARPAL TUNNEL) - Family History Family History: Reports;: Family Anesthesia Reaction (MOTHER ALLEGRY), Family Diabetes (MOTHER), Family Heart Disease (MOTHER FATHER), Family Hypertension ( MOTHER AND FATHER), Family Stroke (FATHER) - Social History Smoking Status: Former smoker Frequency of Alcohol Use: None Type of Drug Use: None Exam Vital Signs: Vital Signs Temperature 96.1 F L 04/11/17 06:37 Pulse Rate 78 04/11/17 08:11 Respiratory Rate 12 04/11/17 08:11 Blood Pressure 114/50 04/11/17 08:11 O2 Sat by Pulse Oximetry 100 04/11/17 08:11 - General General appearance: alert, in no apparent distress - Head Head exam: Present: atraumatic, normocephalic - Eye Eye exam: Present: normal appearance, PERRL, EOMI - ENT ENT exam: Present: mucous membranes dry - Neck Neck exam: Present: normal inspection - Chest Chest inspection: Present: normal inspection, symmetric chest wall rise - Respiratory Respiratory exam: Present: normal lung sounds bilaterally - Cardiovascular Cardiovascular exam: Present: regular rate, normal rhythm, normal heart sounds - Abdominal Exam Abdominal exam: Present: soft, normal bowel sounds. Absent: distention, tenderness - Extremities Exam Extremities exam: Present: normal inspection - Back Exam Back exam: Present: normal inspection - Neurological Exam Neurological exam: Present: alert, oriented X3 - Psychiatric Psychiatric exam: Present: normal affect, normal mood - Skin Skin exam: Present: warm, dry, intact, normal color, other (No signs of infection- No erythema, no drainage to chest incision and tibial incisions.) Course Course Narrative: cardiovascular sx was called in after pt decompensated. . pt was intubated and was found to be hyperkalemic along with in renal failure. DR Kendy will follow, along with DR Escobar. pt will be admitted to hospitalist service/ with possible dialysis Results - Labs CBC & BMP: 04/11/17 06:56 04/11/17 06:56 Lab Results: I have reviewed the patients labs Labs: Laboratory Tests 04/11/17 04/11/17 04/11/17 06:56 06:56 06:56 WBC 11.4 RBC 2.65 L Hgb 8.0 L Hct 24.3 L MCV 91.7 MCH 30 MCHC 32.9 RDW 15.2 Plt Count 250 MPV 11.9 Neut % (Auto) 75.1 H Lymph % (Auto) 10.5 L [place] % (Auto) 8.7 Eos % (Auto) 0.1 Baso % (Auto) 0.1 Neut # (Auto) 8.5 H Lymph # (Auto) 1.2 L [place] # (Auto) 1.0 H Eos # (Auto) 0.0 Baso # (Auto) 0.0 Total Counted Pending Immature Gran % 5.5 Nucleated RBC % 0.4 Immature Gran # 0.62 Nucleated RBCs # 0.04 INR 1.3 PT Patient/Control Mix 14.2 Circ Anticoag PTT 34.0 Lactic Acid 4.6 H Laboratory Tests 04/11/17 04/11/17 06:56 06:56 Total Counted 100 Segmented Neutrophils 78 Lymphocytes 10 L Monocytes 11 Eosinophils 1 Platelet Estimate Normal Hypochromasia 1+ Anisocytosis 1+ Microcytosis 1+ Sodium 129 L Potassium 6.6 H* Chloride 98 Carbon Dioxide 16 L Anion Gap 21.6 H BUN 50 H Creatinine 2.90 H GFR Calculation 23 BUN/Creatinine Ratio 17.00 Glucose 330 H Calculated Osmolality 283.9 Calcium 7.9 L Total Bilirubin 0.80 AST 182 H ALT 187 H Alkaline Phosphatase 71 Total Creatine Kinase 63 D CK-MB (CK-2) 1.9 Troponin I 0.145 H Total Protein 7.0 Albumin 3.0 L Globulin 4.0 H Albumin/Globulin Ratio 0.7 L Lipase 159.0 Laboratory Tests 04/11/17 04/11/17 06:56 06:56 B-Natriuretic Peptide 239 H Urine Color Yellow Urine Appearance Slightly hazy Urine pH 5.0 Ur Specific [place] 1.015 Urine Protein 30 Urine Glucose (UA) Negative Urine Ketones Negative Urine Blood Negative Urine Nitrate Negative Urine Bilirubin Negative Urine Urobilinogen < 2.0 H Urine Leukocytes Negative Urine RBC 1 Urine WBC 1 Ur Squamous Epith Cells Occasional Amorphous Crystals Occasional Urine Bacteria Occasional Urine Mucus Occasional Ur Culture Indicated? Not indicated - Diagnostic Findings Procedure: Chest x-ray: report reviewed by me (04/11/17 0654: CHF decompensation. Progressive bibasilar atelectasis or pneumonia. 04/11/17 0746: Intubated. Consider withdrawing endotracheal tube slightly. Continued evidence of CHF and left basilar pneumonia.) Disposition Clinical Impression: Hyperkalemia, Renal failure, Respiratory failure Case discussed with: patient, patient's family Disposition: Still a Patient Condition: Stable Time of Disposition: 08:27
[2017-04-11 07:36] LABS: Alanine Aminotransferase 187 U/L (16-61); Alkaline Phosphatase 71 U/L (45-117); Aspartate Amino Transferase 182 U/L (0-37); Blood Urea Nitrogen 50 MG/DL (7-18); Calcium 7.9 MG/DL (8.5-10.1); Glucose 330 MG/DL (74-106); Osmolality,Calculated 283.9 MOS/KG (273-304); Sodium 129 MMOL/L (136-145)
[2017-04-11 07:42] LABS: Anisocytosis 1+; Eosinophils 1 % (0-10); Hypochromasia 1+; Lymphocytes 10 % (20-55); Microcytosis 1+; Segmented Neutrophils 78 % (50-85); Total Cells Counted 100
[2017-04-11 07:43] LABS: Platelet Estimate Normal; Troponin I Only 0.145 NG/ML (0.00-0.045)
[2017-04-11] MEDS ORDERED: VECURONIUM 10 MG VIAL IV ONE ×2 (07:45→09:43)
[2017-04-11] MEDS ORDERED: SODIUM CHLORIDE 0.9% 200 ML IV STA ×2 (07:46→08:35)
[2017-04-11 07:49] LABS: Potassium 6.6 MMOL/L (3.5-5.1)
[2017-04-11 07:53] LABS: Amorphous Crystals,Urine Occasional /HPF (Few); Apearance,Urine Slightly Hazy (Clear); Bacteria,Urine Occasional /HPF (Few); Bilirubin,Urine Negative (Negative); Blood, Urine Negative (Negative); Glucose,Urine (UA) Negative (Negative); Ketones,Urine Negative (Negative); Mucus,Urine Occasional /LPF (Occasional); Nitrite,Urine Negative (Negative); Protein,Urine 30 MG/DL; RBC,Urine 1 /HPF (0-4); Squamous Epithelial Cell,Urine Occasional /HPF (0-10); Urine Color Yellow (Yellow); Urine Specific Gravity 1.015 (1.001-1.035); Urine Urobilinogen < 2.0 EU/DL (0.2-1.0); WBC,Urine 1 /HPF (0-6)
[2017-04-11] MEDS ORDERED: CALCIUM CHLORIDE 1,000 MG/10 ML SYRINGE IV STA (07:55)
[2017-04-11] MEDS ORDERED: CALCIUM CHLORIDE 1,000 MG/10 ML SYRINGE IV ONE (07:56)
--- NOTE | 2017-04-11 07:59 | XRay Report ---
XR chest 1V portable Indication: Nausea and vomiting. Chest one view: Comparison 04/07/2017. Cardiomegaly is worsened with increasing central pulmonary vascular congestion. Lung volumes remain low with continued obscuration of the left lung base and increased obscuration of medial right lung base. Median sternotomy wires are present. Impression: CHF decompensation. Progressive bibasilar atelectasis or pneumonia. PROCEDURE INTERPRETED AT [facility] DEPARTMENT OF RADIOLOGY Final Report Signed by: Abe Pérez M.D.
--- NOTE | 2017-04-11 08:00 | XRay Report ---
XR chest 1V Indication: Intubated. Chest one view: Comparison 0709 hours. Endotracheal tube is now present just cephalad the scottie. Recommend withdrawing slightly. Defibrillator pads are now present as well. Cardiomegaly, obscuration of the lung bases and central pulmonary vascular congestion is unchanged. Impression: Intubated. Consider withdrawing endotracheal tube slightly. Continued evidence of CHF and left basilar pneumonia. PROCEDURE INTERPRETED AT [facility] DEPARTMENT OF RADIOLOGY Final Report Signed by: Abe Pérez M.D.
[2017-04-11] MEDS ORDERED: ALBUTEROL NEB SOLN 5 MG/ML 20 ML/BOTTLE CONT NEB STA (08:05)
--- NOTE | 2017-04-11 08:11 | EKG Report ---
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
[2017-04-11] MEDS ORDERED: FUROSEMIDE 40 MG/4 ML VIAL IV STA (08:19)
[2017-04-11] MEDS ORDERED: FUROSEMIDE 40 MG/4 ML VIAL ONE (08:40)
--- NOTE | 2017-04-11 08:46 | Hospitalist History & Physical ---
<Pina Sauceda - Last Filed: 04/11/17 12:31> History of Present Illness Chief complaint: Nausea, vomiting, and diarrhea History of present illness: This is a poor and unfortunate 67-year-old male that presented to the ED at [facility] this morning for the evaluation of nausea, vomiting, and diarrhea. The patient has a very complex medical history significant for: Insulin-dependent diabetes mellitus, hypertension, coronary artery disease, insomnia, chronic pain, peripheral neuropathy, gastroesophageal reflux disease, hyperlipidemia, chronic arthritis, asbestosis, renal calculi, degenerative disc disease, and skin cancer. Patient has a surgical history significant for femoral popliteal bypass graft, cardiac catheterization with stent placement 5, left eye retina surgery, tonsillectomy, adenoidectomy, cholecystectomy, bilateral carpal tunnel surgery and recent coronary artery bypass graft 3 on April 02, 2017. The patient was recently discharged from [facility] on April 07, 2017 after undergoing coronary artery bypass graft 3 under the direction of Dr. Kobe Larry. The patient's clinical encounter was essentially uneventful and the patient was discharged home to follow-up as instructed. The is present at bedside she served as historian. The reported that the patient had not experience any significant complications since his discharge. She reported that the patient was progressing well until last night. She reported that the patient had an acute onset of nausea with subsequent vomiting after dinner on last night. She reported that the patient vomited all night. She noted that each time that the patient had a vomiting episode that his respirations become labored and that he complained of shortness of breath immediately afterwards. She became alarmed as the episodes became more frequent and transported the patient to the ED for further evaluation. At the time of ED presentation, the patient was noted to be vomiting. During the ED assessment, during 1 of the vomiting episodes the patient became bradycardic and eventually pulseless. Cardiopulmonary resuscitation was initiated and the patient's pulse was regained. The patient was intubated for airway protection and placed on mechanical ventilation. Labs were immediately obtained; complete blood count reported white blood cell count of 11.4, hemoglobin 8.0, hematocrit 24.3, and platelet count of 250. Basic metabolic profile reported sodium at 129, potassium 6.6, chloride 98, CO2 is 16, BUN 50, creatinine 2.90, and glucose 330, lactic acid 4.6, calcium 7.9, AST 182, ALT 187 , alkaline phosphatase 71, calculated osmolality 283.9, lipase 159, and BNP 239. Cardiac enzymes were obtained which reported her troponin at 0.145, CK-MB 1.9, total creatine kinase at 63. Urinalysis was essentially unremarkable. Chest x-ray was significant for congestive heart failure decompensation and progressive bibasilar atelectasis or pneumonia. After brief discussion with both Dr. Marcos and Dr. Townsend, the patient will be admitted to the hospitalist services for continuation of care. Cardiology is present at bedside and are aware of the patient's current condition and is already following. Nephrology has been consulted; I have spoke with Dr. Johnson regarding the patient's condition and he has agreed to evaluate and assist during the clinical encounter. Home medications have been reviewed and reconciled. CODE STATUS discussed; patient is a FULL CODE. Home Medications Medication Instructions Recorded Confirmed Type Acyclovir [Zovirax Cap/Tab] 400 mg PO 5X DAILY PRN 10/26/15 04/11/17 History Apixaban [Eliquis] 5 mg PO BID 10/26/15 04/11/17 History Aspirin [Ecotrin] 81 mg PO BEDTIME 10/26/15 04/11/17 History Diphenoxylate/Atrop 2.5-0.025 2 tablet PO Q6H PRN 10/26/15 04/11/17 History [Lomotil Tab] Esomeprazole Magnesium [Nexium] 40 mg PO BEDTIME 10/26/15 04/11/17 History Gemfibrozil 600 mg PO BID 10/26/15 04/11/17 History Glimepiride [Amaryl] 4 mg PO BID W/MEALS 10/26/15 04/11/17 History Lidocaine 5% Patch [Lidoderm 5% 1 patch TRANSDERM DAILY PRN 10/26/15 04/11/17 History Patch] Magnesium Chloride [Slow Mag] 64 mg PO BID 10/26/15 04/11/17 History Methocarbamol Tab [Robaxin Tab] 750 mg PO DAILY PRN 10/26/15 04/11/17 History [place]-3 Fatty Acids [Fish Oil] 1,000 mg PO DAILY 10/26/15 04/11/17 History Vitamin E 400 unit PO DAILY 10/26/15 04/11/17 History Zolpidem Tartrate [Ambien Cr] 12.5 mg PO BEDTIME 10/26/15 04/11/17 History diphenhydrAMINE CAP [Benadryl Cap] 25 mg PO Q6H PRN 10/26/15 04/11/17 History metFORMIN [Glucophage] 1,000 mg PO BID W/MEALS 10/26/15 04/11/17 History Carvedilol [Coreg] 6.25 mg PO BID 04/01/17 04/11/17 History Furosemide 20 mg PO DAILY 04/01/17 04/11/17 History Gabapentin 300 mg PO BID 04/01/17 04/11/17 History Multivit-Min/FA/Lutein/Zeaxant 1 tablet PO DAILY 04/01/17 04/11/17 History [Icaps Mv Tablet] Rosuvastatin Calcium [Crestor] 40 mg PO BEDTIME 04/01/17 04/11/17 History Amiodarone Tab [Cordarone Tab] 200 mg PO BID tablet 04/07/17 04/11/17 Rx Docusate Sodium Cap [Colace Cap] 100 mg PO DAILY capsule 04/07/17 04/11/17 Rx Ferrous Sulfate Tab [Feosol 325 mg PO DAILY tablet 04/07/17 04/11/17 Rx Original Tab] Magnesium Hydroxide Susp [Milk of 30 ml PO Q6H PRN 04/07/17 04/11/17 Rx Magnesia] Multivitamin (Ocuvite) [Ocuvite] 1 tablet PO DAILY tablet 04/07/17 04/11/17 Rx sitaGLIPtin [Januvia] 100 mg PO DAILY tablet 04/07/17 04/11/17 Rx Hydrocodone/Acetaminophen [Lortab 1 each PO Q8H PRN 04/11/17 04/11/17 History 10-325 mg Tablet] Insulin Glargine,Hum.rec.anlog 10 units PO QPM 04/11/17 04/11/17 History [Lantus SoloStar] Lisinopril [Lisinopril] 20 mg PO DAILY 04/11/17 04/11/17 History dilTIAZem HCl [Diltiazem ER (24 120 mg PO BID 04/11/17 04/11/17 History hr)] Allergies Allergy/AdvReac Type Severity Reaction Status Date / Time shrimp Allergy Mild ITCHING Verified 04/11/17 06:45 Sulindac [From Clinoril] Allergy Mild ITCHING Verified 04/11/17 06:45 Medical,Surgical,& Family Hx - Medical History Cardio: History of: Cerebrovascular Disease (A FLUTTER), CAD (5 stents), Hypertension, Cardiovascular Problems (DR LINDQUIST CARDIOVERSION 4-5 YEARS AGO) Neurology: History of: Peripheral Neuropathy (DIABETIC NERVE PAIN) No history of: Seizures HEENT: History of: Eye Problem (READING GLASSES, MACULAR DEGERATION PT GETS SHOTS Q6 WEEKS), Dental Problems (UPPER FULL PLATE) Endocrine: History of: Diabetes Mellitus (NIDDM), Dyslipidemia, Thyroid Disorder Respiratory: History of: COPD, Respiratory Problems (ASBESTOSIS) Genitourinary: History of: Kidney Stones Gastrointestinal: History of: GERD, Hemorrhoids, Liver Problems (ELEVATED ENZYMES IN PAST), Polyps (REMOVED), GI Problems (DIARRHEA) Musculoskeletal: History of: Back/Neck Problems, Degenerative Disk Disease ( FRACTURE 1983 DR JONES PAST HX SPINAL INJECTIONS) Other: History of: Cancer (SKIN RIGHT EAR, SHOULDER) - Surgical History Cardiac Surgeries: Sugical HX of: Femoral-Popliteal Bypass Graft, Cardiac Catheterization (5 STENTS), Cardiac Surgery (Triple Bypass 04/02/17) HEENT Surgeries: Surgical HX of: Eye Surgery (LEFT EYE RETINA SURGERY), Thyroid Surgery (BX), Tonsilectomy & Adenoidectomy Abdominal Surgeries: Surgical HX of: Cholecystectomy, Colonoscopy, EGD Orthopedic Surgeries: Surgical HX of;: Implanted Devices (5 STENTS), Orthopedic Surgery (BILATERAL CARPAL TUNNEL) - Family History Family History: Reports;: Family Anesthesia Reaction (MOTHER ALLEGRY), Family Diabetes (MOTHER), Family Heart Disease (MOTHER FATHER), Family Hypertension ( MOTHER AND FATHER), Family Stroke (FATHER) - Social History Smoking Status: Former smoker Frequency of Alcohol Use: None Type of Drug Use: None ROS unobtainable: due to mental status Exam - Constitutional Vitals: Period Temp Pulse Resp BP Sys/Guzman Pulse Ox Last 24 Hr 96.1 F-96.1 F 53-82 12-26 73-129/37-63 92-100 General appearance: normal weight, no acute distress - Head Head exam: Present: normal inspection, normocephalic, atraumatic - Eye Eye exam: Present: EOMI. Absent: conjunctival injection Pupils: Present: HEATHER, normal accommodation - ENT ENT exam: Present: normal exam, normal external ear exam, normal oropharynx - Neck Neck exam: Present: normal inspection. Absent: lymphadenopathy, meningismus, tenderness, thyromegaly - Respiratory Respiratory exam: Present: decreased breath sounds. Absent: rales, rhonchi, stridor, wheezes - Cardiovascular Cardiovascular exam: Present: regular rate and rhythm. Absent: carotid bruit, diastolic murmur, gallop, JVD, rubs, systolic murmur - GI/Abdominal GI/Abdominal exam: Present: distended - Extremities Exam Extremities exam: Present: normal inspection, normal capillary refill, full ROM. Absent: edema - Back Exam Back exam: Present: normal inspection - Neurological Exam Neurological exam: Present: other (Sedated) - Psychiatric Psychiatric exam: Present: other (Sedated) - Skin Skin exam: Present: normal color, warm, dry Results - Labs CBC & BMP: 04/11/17 06:56 04/11/17 06:56 Lab Results: I have reviewed the past 24 hour labs <Singh Townsend - Last Filed: 04/11/17 13:44> Assessment and Plan (1) Respiratory failure Status: Acute Assessment and plan: The patient presents to the hospital with volume depletion, elevated creatinine , and required intubation in the emergency room due to respiratory failure. I coordinate care with the system planning engineer, stud driver, and manager assisted living today. The patient will continue on ventilator with volume infusion and pressor agent to improve renal blood flow. We will recheck electrolytes tomorrow. Current Visit: Yes (2) Diabetes Status: Chronic Current Visit: No Qualifiers: Diabetes mellitus type: type 2 (3) Hypertension Problem details: Well-controlled postoperatively; continue current treatment with Coreg, diltiazem, and Lasix. Status: Chronic Current Visit: No Qualifiers: Hypertension type: essential hypertension Qualified Code(s): I10 - Essential (primary) hypertension (4) S/P CABG (coronary artery bypass graft) Problem details: Three-vessel coronary artery disease; internal mammary graft to the anterior descending coronary artery and saphenous vein graft to the obtuse marginal and right coronary arteries 04/02/2017 (postop day 3). Status : Chronic Current Visit: No (5) Hyperkalemia Status: Acute Current Visit: Yes (6) Renal failure Status: Acute Current Visit: Yes History of Present Illness History of present illness: I evaluated this patient and completed independent history and physical examination. I coordinated care with PASTOR Yee. I agree with the documentation that she provides above. The patient is presently stable on mechanical ventilation. Dobutamine drip infusing. Blood pressure improved. Chest has few rales heart has regular rate and rhythm and abdomen is soft. Echocardiogram apparently reveals ejection fraction about 55%. Exam - Constitutional Vitals: Period Temp Pulse Resp BP Sys/Guzman Pulse Ox Last 24 Hr 96.1 F-96.7 F 53-109 12-26 73-131/37-64 92-100 Results - Labs CBC & BMP: 04/11/17 06:56 04/11/17 06:56
[2017-04-11 08:49] LABS: ABG Base Excess -18.2 MMOL/L (-2.5-2.5); ABG Oxygen Saturation 64.2 % (95-100); ABG PCO2 29.8 MM HG (35-48); ABG PO2 47.4 MM HG (80-95); ABG TCO2 9.7 MMOL/L (23-27)
[2017-04-11] MEDS ORDERED: DOBUTamine 500 MG/250 ML PREMIX IV ONE (08:49)
--- NOTE | 2017-04-11 08:49 | Cardiology Consult Note ---
Assessment and Plan - Time spent with patient Time spent with patient: Greater than 30 minutes (Discussed the situation with the patient's family including and daughter. Also discussed case with Dr. Marcos, Dr. Larry and Dr. Ramirez. Reviewed) (1) Hyperkalemia Status: Acute Assessment and plan: This certainly change the last 3-4 days. The patient probably has a secondary to acute renal dysfunction as well as it is GI complaints. He is not on exogenous potassium. He may need dialysis especially with his rhythm being abnormal. Current Visit: Yes (2) Respiratory failure Status: Acute Assessment and plan: This is acute and probably associated with metabolic issue and acute rhythm change from this. Is now intubated and will need support. Current Visit: Yes (3) Acute kidney injury Problem details: Related to suspected intravascular volume depletion. IV Lasix dose discontinued earlier today. Recheck BMP in a.m. Status: Acute Assessment and plan: He has some borderline renal dysfunction but this is an acute change from the last 3-4 days and discharge. Nephrology will probably need to be involved and may require dialysis if his BUN/creatinine continue to increase with an increasing potassium. Current Visit: No (4) Diabetes Status: Chronic Assessment and plan: Will be managed by hospitalist service. Current Visit: No Qualifiers: Diabetes mellitus type: type 2 (5) Hypertension Problem details: Well-controlled postoperatively; continue current treatment with Coreg, diltiazem, and Lasix. Status: Chronic Assessment and plan: Blood pressure stable at this time. Current Visit: No Qualifiers: Hypertension type: essential hypertension Qualified Code(s): I10 - Essential (primary) hypertension (6) Coronary artery disease Status: Chronic Assessment and plan: He is now post coronary bypass surgery. Current Visit: No Qualifiers: Coronary Disease-Associated Artery/Lesion type: hoh artery [place] vs. transplanted heart: hoh heart Associated angina: without angina Qualified Code(s): I25.10 - Atherosclerotic heart disease of hoh coronary artery without angina pectoris (7) Atrial fibrillation Problem details: Paroxysmal; early postoperative period patient has maintained normal sinus rhythm. Systemic coagulation per consulting staple laster and cardiothoracic surgery service. Patient is receiving treatment dose subQ Lovenox Status: Chronic Assessment and plan: This is been a chronic issue but post resuscitation he appears in sinus rhythm with first-degree AV block. This may not sustain. Current Visit: No (8) S/P CABG (coronary artery bypass graft) Problem details: Three-vessel coronary artery disease; internal mammary graft to the anterior descending coronary artery and saphenous vein graft to the obtuse marginal and right coronary arteries 04/02/2017 (postop day 3). Status : Chronic Assessment and plan: His postsurgical wounds look good. Current Visit: No (9) Anemia Problem details: Multifactorial including chronic disease and acute surgical blood loss. Patient remains hemodynamically stable. Continue monitoring. There is no indication for immediate blood product transfusion at present. Status: Acute Assessment and plan: He may need blood transfusion. Is probably associated with his surgery. Current Visit: No (10) Dyslipidemia Problem details: Receiving Crestor. Check fasting lipid profile in a.m. Status: Chronic Assessment and plan: When can we will continue his statin drug. Current Visit: No History of Present Illness - Data of Consult Patient: known to practice within the last 3 years Consult date: 04/11/17 Requesting Physician: Eliane Marcos - Consult Narrative Reason for consult: CAD, post code History of present illness: Mr. Mathew is a 67 year old male who is recently post coronary bypass surgery for coronary disease. Please see more discussion below. The patient was seen in the emergency room acutely. Patient's and daughter are in the ER room with him at the time of my evaluation. The patient was discharged 04/07/17. Patient apparently was stable doing fairly well at the time of discharge. The patient continued to do fairly well but family noted yesterday afternoon late in the evening he was having complaints just not feeling well began having nausea and vomiting. No chest pain. He did develop through the night a little shortness of breath. He was brought to the emergency room for evaluation started. Apparently he suddenly bradycardic hypotensive and required CPR intubation and resuscitation. ECG afterwards revealed a bradycardia with wide QRS complex. Please see Dr. Marcos's noted in regard to this. Echocardiogram is been ordered but pending. On my arrival to the emergency room Dr. Larry and Dr. Ramirez was there. Initial evaluation the patient's ECG reveals narrow complex QRS. His heart rate was in the 70s and his blood pressure was normal. Dr. Marcos who given the patient some calcium gluconate after became apparent that the patient's potassium was 6.6, creatinine was now 2.9 BUN was 50. Sodium was 129 with a bicarb of 16. Lactic acid 4.6. His liver enzymes were elevated compared to 4 days ago. They are abnormally elevated. His troponin was 0.145 which is down from 4 days ago of 1.74. His H&H was 8/24.3. Chest x- ray reveals some possible pulmonary vascular congestion when compared to prior chest x-rays not much different. We were acutely asked to see the patient because of ST segment elevation myocardial infarction. On review of the patient's ECG this was non-ST segment elevation infarction but was more of a metabolic ECG with wide QRS complex but without findings of acute myocardial infarction. Repeat ECG revealed narrow QRS complexes and no ST segment elevation myocardial infarction. Should be noted the patient appears to be in sinus rhythm with prolonged AK interval. He has a history of chronic atrial fibrillation probably during his resuscitative measures converted to sinus rhythm at least temporarily. Present the patient is hemodynamically stable rhythm is stable. Biggest issues is his acute renal dysfunction and hyperkalemia and electrolyte abnormalities. The family states his medications are very similar to what they were previously. He has not had any renal dysfunction or other issues previously. His recent cardiac history is significant in the patient recently been having symptoms of angina and jaw pain and underwent cardiac catheterization with finding of multivessel disease but ejection fraction of 60%. Patient underwent coronary bypass surgery 04/02/[address] Kobe Larry with SUE to the LAD, SVG to the OM, and S SVG to RCA. Postoperatively the patient progressed. He did have a creatinine that was elevated some post bypass surgery but then trended back down. He did not have any potassium issues with his potassium being threes and fours. His H&H is about what it has been running. The has chronic atrial fibrillation for which she has been on Eliquis but is also been on amiodarone. He apparently was not on amiodarone until this recent admission. CC: - Home Medications and Allergies Home Medications: Home Medications Medication Instructions Recorded Confirmed Type Acyclovir [Zovirax Cap/Tab] 400 mg PO 5X DAILY 10/26/15 04/01/17 History Apixaban [Eliquis] 5 mg PO BID 10/26/15 04/01/17 History Aspirin [Ecotrin] 81 mg PO BEDTIME 10/26/15 04/01/17 History Diltiazem Cd Cap [Cardizem CD] 120 mg PO BID 10/26/15 04/01/17 History Diphenoxylate/Atrop 2.5-0.025 2 tablet PO Q6H PRN 10/26/15 04/01/17 History [Lomotil Tab] Esomeprazole Magnesium [Nexium] 40 mg PO BEDTIME 10/26/15 04/01/17 History Gemfibrozil 600 mg PO BID 10/26/15 04/01/17 History Glimepiride [Amaryl] 4 mg PO BID W/MEALS 10/26/15 04/01/17 History Lidocaine 5% Patch [Lidoderm 5% 1 patch TRANSDERM DAILY 10/26/15 04/01/17 History Patch] Magnesium Chloride [Slow Mag] 64 mg PO BID 10/26/15 04/01/17 History Methocarbamol Tab [Robaxin Tab] 750 mg PO DAILY PRN 10/26/15 04/01/17 History Multivitamin [One Daily] 1 each PO DAILY 10/26/15 04/01/17 History [place]-3 Fatty Acids [Fish Oil] 1,000 mg PO DAILY 10/26/15 04/01/17 History Umeclidinium Brm/Vilanterol Tr 1 puff INH DAILY 10/26/15 04/01/17 History [Anoro Ellipta] Vitamin E 400 unit PO DAILY 10/26/15 04/01/17 History Zolpidem Tartrate [Ambien Cr] 12.5 mg PO BEDTIME 10/26/15 04/01/17 History diphenhydrAMINE CAP [Benadryl Cap] 25 mg PO Q6H PRN 10/26/15 04/01/17 History metFORMIN [Glucophage] 1,000 mg PO BID W/MEALS 10/26/15 04/01/17 History Hydrocodone/Acetaminophen [Lortab 1 each PO DIRECTED PRN #20 11/02/15 Rx 10-325 mg Tablet] tablet Carvedilol [Coreg] 6.25 mg PO BID 04/01/17 04/01/17 History Furosemide 20 mg PO DAILY 04/01/17 04/01/17 History Gabapentin 300 mg PO BID 04/01/17 04/01/17 History Multivit-Min/FA/Lutein/Zeaxant 1 tablet PO DAILY 04/01/17 04/01/17 History [Icaps Mv Tablet] Rosuvastatin Calcium [Crestor] 40 mg PO BEDTIME 04/01/17 04/01/17 History Amiodarone Tab [Cordarone Tab] 200 mg PO BID tablet 04/07/17 Rx Docusate Sodium Cap [Colace Cap] 100 mg PO DAILY capsule 04/07/17 Rx Ferrous Sulfate Tab [Feosol 325 mg PO DAILY tablet 04/07/17 Rx Original Tab] Lisinopril 5 mg PO DAILY 04/07/17 04/07/17 History Magnesium Hydroxide Susp [Milk of 30 ml PO Q6H PRN 04/07/17 Rx Magnesia] Metformin HCl [Metformin HCl] 1,000 mg PO BID W/MEALS 04/07/17 04/07/17 History Multivitamin (Ocuvite) [Ocuvite] 1 tablet PO DAILY tablet 04/07/17 Rx Zaleplon [Sonata] 5 mg PO BEDTIME PRN capsule 04/07/17 Rx sitaGLIPtin [Januvia] 100 mg PO DAILY tablet 04/07/17 Rx traMADol TAB [Ultram] 50 mg PO BID PRN 04/07/17 04/07/17 History Allergies/Adverse Reactions: Allergies Allergy/AdvReac Type Severity Reaction Status Date / Time shrimp Allergy Mild ITCHING Verified 04/11/17 06:45 Sulindac [From Clinoril] Allergy Mild ITCHING Verified 04/11/17 06:45 ROS unobtainable: due to endotracheal tube (Patient is only able to give some symptomatic complaints of the last 24 hours of his nausea vomiting is noted in history of present illness.) Medical,Surgical,& Family Hx - Medical History Cardio: History of: Cerebrovascular Disease (A FLUTTER), CAD (5 stents), Hypertension, Cardiovascular Problems (DR LINDQUIST CARDIOVERSION 4-5 YEARS AGO) Neurology: History of: Peripheral Neuropathy (DIABETIC NERVE PAIN) No history of: Seizures HEENT: History of: Eye Problem (READING GLASSES, MACULAR DEGERATION PT GETS SHOTS Q6 WEEKS), Dental Problems (UPPER FULL PLATE) Endocrine: History of: Diabetes Mellitus (NIDDM), Dyslipidemia, Thyroid Disorder Respiratory: History of: COPD, Respiratory Problems (ASBESTOSIS) Genitourinary: History of: Kidney Stones Gastrointestinal: History of: GERD, Hemorrhoids, Liver Problems (ELEVATED ENZYMES IN PAST), Polyps (REMOVED), GI Problems (DIARRHEA) Musculoskeletal: History of: Back/Neck Problems, Degenerative Disk Disease ( FRACTURE 1984 DR JONES PAST HX SPINAL INJECTIONS) Other: History of: Cancer (SKIN RIGHT EAR, SHOULDER) - Surgical History Cardiac Surgeries: Sugical HX of: Femoral-Popliteal Bypass Graft, Cardiac Catheterization (5 STENTS), Cardiac Surgery (Triple Bypass 04/02/17) HEENT Surgeries: Surgical HX of: Eye Surgery (LEFT EYE RETINA SURGERY), Thyroid Surgery (BX), Tonsilectomy & Adenoidectomy Abdominal Surgeries: Surgical HX of: Cholecystectomy, Colonoscopy, EGD Orthopedic Surgeries: Surgical HX of;: Implanted Devices (5 STENTS), Orthopedic Surgery (BILATERAL CARPAL TUNNEL) - Family History Family History: Reports;: Family Anesthesia Reaction (MOTHER ALLEGRY), Family Diabetes (MOTHER), Family Heart Disease (MOTHER FATHER), Family Hypertension ( MOTHER AND FATHER), Family Stroke (FATHER) - Social History Smoking Status: Former smoker Frequency of Alcohol Use: None Type of Drug Use: None Physical Examination Vital Signs Temp Pulse Resp BP Pulse Ox 96.1 F L 60 18 73/37 95 04/11/17 06:37 04/11/17 06:37 04/11/17 06:37 04/11/17 06:37 04/11/17 06:37 Exam: General appearance: His normal weight but he is intubated and sedated at this time. S Head exam: Intubated and without gross trauma. Eye exam: Pupils are equal and reactive. Ear exam: Anatomically normal. Oral exam: Orally intubated Neck exam: normal inspection no JVD. No carotid bruit. Trachea is in midline. Respiratory exam: clear to auscultation bilaterally anteriorly with good air movement. Patient is on mechanical ventilation. No rales, rhonchi or wheezes. Cardiovascular exam: regular rate and rhythm, no murmur or gallop or rub. No precordial lift. No bruits over the major arteries. Chest wall/torso: Recent sternotomy wound looks good. Peripheral Pulses: 1-2+ throughout. GI/Abdominal exam: Diminished bowel sounds, soft and nontender, no abdominal bruits or pulsatile masses. Musculoskeletal/Extremities exam: Lower leg graft donor wounds look good. Minimal edema. Neurological exam: Intubated and sedated. Psychiatric exam: Patient intubated and sedated. Skin exam: normal color, warm. Postoperative wounds look good Result/EKG - Labs CBC & BMP: 04/11/17 06:56 04/11/17 06:56 Labs: Laboratory Results - last 24 hr 04/11/17 04/11/17 04/11/17 06:56 06:56 06:56 WBC 11.4 RBC 2.65 L Hgb 8.0 L Hct 24.3 L MCV 91.7 MCH 30 MCHC 32.9 RDW 15.2 Plt Count 250 MPV 11.9 Neut % (Auto) 75.1 H Lymph % (Auto) 10.5 L [place] % (Auto) 8.7 Eos % (Auto) 0.1 Baso % (Auto) 0.1 Neut # (Auto) 8.5 H Lymph # (Auto) 1.2 L [place] # (Auto) 1.0 H Eos # (Auto) 0.0 Baso # (Auto) 0.0 Total Counted 100 Immature Gran % 5.5 Nucleated RBC % 0.4 Immature Gran # 0.62 Segmented Neutrophils 78 Lymphocytes 10 L Monocytes 11 Eosinophils 1 Nucleated RBCs # 0.04 Platelet Estimate Normal Hypochromasia 1+ Anisocytosis 1+ Microcytosis 1+ INR 1.3 PT Patient/Control Mix 14.2 Circ Anticoag PTT 34.0 Sodium Potassium Chloride Carbon Dioxide Anion Gap BUN Creatinine GFR Calculation BUN/Creatinine Ratio Glucose Calculated Osmolality Lactic Acid Calcium Total Bilirubin AST ALT Alkaline Phosphatase Total Creatine Kinase CK-MB (CK-2) Troponin I B-Natriuretic Peptide Total Protein Albumin Globulin Albumin/Globulin Ratio Lipase Urine Color Yellow Urine Appearance Slightly hazy Urine pH 5.0 Ur Specific [place] 1.015 Urine Protein 30 Urine Glucose (UA) Negative Urine Ketones Negative Urine Blood Negative Urine Nitrate Negative Urine Bilirubin Negative Urine Urobilinogen < 2.0 H Urine Leukocytes Negative Urine RBC 1 Urine WBC 1 Ur Squamous Epith Cells Occasional Amorphous Crystals Occasional Urine Bacteria Occasional Urine Mucus Occasional Ur Culture Indicated? Not indicated 04/11/17 04/11/17 04/11/17 06:56 06:56 06:56 WBC RBC Hgb Hct MCV MCH MCHC RDW Plt Count MPV Neut % (Auto) Lymph % (Auto) [place] % (Auto) Eos % (Auto) Baso % (Auto) Neut # (Auto) Lymph # (Auto) [place] # (Auto) Eos # (Auto) Baso # (Auto) Total Counted Immature Gran % Nucleated RBC % Immature Gran # Segmented Neutrophils Lymphocytes Monocytes Eosinophils Nucleated RBCs # Platelet Estimate Hypochromasia Anisocytosis Microcytosis INR PT Patient/Control Mix Circ Anticoag PTT Sodium 129 L Potassium 6.6 H* Chloride 98 Carbon Dioxide 16 L Anion Gap 21.6 H BUN 50 H Creatinine 2.90 H GFR Calculation 23 BUN/Creatinine Ratio 17.00 Glucose 330 H Calculated Osmolality 283.9 Lactic Acid 4.6 H Calcium 7.9 L Total Bilirubin 0.80 AST 182 H ALT 187 H Alkaline Phosphatase 71 Total Creatine Kinase 63 D CK-MB (CK-2) 1.9 Troponin I 0.145 H B-Natriuretic Peptide 239 H Total Protein 7.0 Albumin 3.0 L Globulin 4.0 H Albumin/Globulin Ratio 0.7 L Lipase 159.0 Urine Color Urine Appearance Urine pH Ur Specific [place] Urine Protein Urine Glucose (UA) Urine Ketones Urine Blood Urine Nitrate Urine Bilirubin Urine Urobilinogen Urine Leukocytes Urine RBC Urine WBC Ur Squamous Epith Cells Amorphous Crystals Urine Bacteria Urine Mucus Ur Culture Indicated? - Impressions Impressions: Patient initially ECGs of atrial fibrillation. No acute changes. Patient post code had a wide QRS complex bradycardic and appears metabolic. The patient's follow-up ECG with narrow complex QRS complexes with sinus rhythm and prolonged AK intervals. No acute ST changes.
[2017-04-11] MEDS: DOBUTamine 500 MG/250 ML PREMIX IV SCH ×2 (08:51→21:30)
[2017-04-11] MEDS ORDERED: SODIUM CHLORIDE 0.9% 1,000 ML IV STA (08:53)
[2017-04-11 09:22] LABS: Allen Test Positive; Pt O2 Delivery Device Ventilator
[2017-04-11 09:23] LABS: ABG Base Excess -12.8 MMOL/L (-2.5-2.5); ABG HCO3 14.3 MMOL/L (20-26); ABG Oxygen Saturation 99.8 % (95-100); ABG PCO2 28.1 MM HG (35-48); ABG PH 7.275 (7.35-7.45); ABG TCO2 12.5 MMOL/L (23-27)
[2017-04-11] MEDS ORDERED: SODIUM BICARBONATE 50 MEQ/50 ML VIAL IV ONE (09:40)
[2017-04-11] MEDS ORDERED: SODIUM BICARBONATE 50 MEQ/50 ML SYRINGE IV ONE (09:47)
[2017-04-11] MEDS ORDERED: PROPOFOL 1,000 MG/100 ML BOTTLE IV ONE (09:56)
[2017-04-11] MEDS ORDERED: ZALEPLON 5 MG CAPSULE PO PRN (10:06)
[2017-04-11] MEDS ORDERED: traMADol 50 MG TABLET PO PRN (10:06)
[2017-04-11] MEDS ORDERED: PANTOPRAZOLE 40 MG TABLET PO SCH (10:06)
[2017-04-11] MEDS ORDERED: DEXTROSE 50% 25 GM/50 ML VIAL IV PRN (10:06)
[2017-04-11] MEDS ORDERED: GLUCAGON 1 MG VIAL IM PRN (10:06)
[2017-04-11] MEDS ORDERED: SODIUM CHLORIDE 0.9% 1,000 ML IV SCH (10:06)
[2017-04-11] MEDS ORDERED: ACETAMINOPHEN 325 MG TABLET PO PRN (10:06)
--- NOTE | 2017-04-11 10:17 | ECHO Report ---
Luis Mathew Exam Date: 04/11/2017 08:51 Referring Physician: Technologist: Judy Walker RDCS Age: 67 Ht (in): 69 Wt (lb): 167 Gender: M Exam Location: [facility] Echo Indications: Bradycardia, unspecified, s/p recent CABG BP: 77 / 42 HR: 66 Rhythm: Sinus Technical Quality: Fair IMPRESSIONS 1. Left ventricle is normal size and overall normal systolic function with probably some mild concentric left ventricular hypertrophy. No real specific segmental wall motion abnormalities noted. 2. Right and left atrium are mildly dilated. 3. Right ventricle is normal size and systolic function. 4. There is a small pericardial effusion but there is no evidence for tamponade. 5. Mitral valve is slightly thickened with annular calcification. Trace to mild regurgitation is present. 6. Aortic valve is sclerotic but without stenosis or regurgitation. 7. Trace to mild tricuspid regurgitation. 8. No evidence of elevated right-sided pressures. MEASUREMENTS (Male / Female) Normal Values 2D ECHO LV Diastolic Diameter PLAX 3.6 cm 4.2 - 5.9 / 3.9 - 5.3 cm LV Systolic Diameter PLAX 2.3 cm LV Fractional Shortening PLAX 35.9 % IVS Diastolic Thickness 1.4 cm 0.6 - 1.0 / 0.6 - 0.9 cm LVPW Diastolic Thickness 1.4 cm 0.6 - 1.0 / 0.6 - 0.9 cm RV Internal Dim ED PLAX 3.6 cm Aortic Root Diameter 3.4 cm LA Systolic Diameter LX 4.9 cm 3.0 - 4.0 / 2.7 - 3.8 cm DOPPLER TR Peak Velocity 254.0 cm/s TR Peak Gradient 25.8 mmHg FINDINGS Left Ventricle Normal left ventricular cavity size. Mild left ventricular hypertrophy. Left ventricular ejection fraction is estimated at 55 %. Right Ventricle The right ventricle is normal in size and function. Right Atrium The right atrium is at worse mildly enlarged. Left Atrium The left atrium is mildly enlarged. Mitral Valve Mildly thickened mitral valve and minimal annular calcification. Trace to mild mitral valve regurgitation. Aortic Valve Aortic valve is tricusp with some sclerosis without stenosis or regurgitation. Tricuspid Valve Morphologically normal tricuspid valve. Trace to mild tricuspid valve regurgitation. Tricuspid regurgitation velocities suggest a PAP of 36 mmHg. Pulmonic Valve Morphologically normal pulmonic valve without significant stenosis. There is no pulmonic regurgitation. Pericardium Small pericardial effusion. No evidence for tamponade. Aorta Normal ascending aorta dimension. Abe Escobar MD (Electronically Signed) Final Date: 11 April 2017 10:16
--- NOTE | 2017-04-11 10:24 | Event Note ---
The patient's echocardiogram reveals ejection fraction 55% with some mild concentric left ventricular function. No specific segmental wall motion normality's. There is no significant valve abnormalities. There is a small pericardial effusion that is hemodynamically insignificant without tamponade. The patient at present is in the ICU and hemodynamically stable. He will need continue supportive care while he is being evaluated for his metabolic issues.
[2017-04-11] MEDS ORDERED: FUROSEMIDE 40 MG/4 ML VIAL IV ONE (10:46)
[2017-04-11] MEDS ORDERED: INSULIN LISPRO 100 UNIT/ML SUBCUT SCH (11:30)
[2017-04-11 11:48] LABS: ABG Base Excess -6.9 MMOL/L (-2.5-2.5); ABG HCO3 18.7 MMOL/L (20-26); ABG Oxygen Saturation 98.7 % (95-100); ABG PCO2 33.1 MM HG (35-48); ABG PH 7.345 (7.35-7.45); ABG TCO2 17.1 MMOL/L (23-27)
[2017-04-11] MEDS: PROPOFOL 1,000 MG/100 ML BOTTLE IV SCH (12:00)
[2017-04-11] MEDS ORDERED: CALCIUM GLUCONATE 1,000 MG in SODIUM CHLORIDE 0.9% 100 ML IV ONE (12:00)
[2017-04-11] MEDS: INSULIN REGULAR 100 UNIT/ML SUBCUT SCH ×4 (12:15→20:56)
--- NOTE | 2017-04-11 12:30 | Nephrology Consult Note ---
History of Present Illness Chief complaint: Acute renal failure, hyperkalemia History of present illness: Mr. Mathew is a 67 year old male who has a history of coronary artery disease and is status post a three-vessel bypass and discharged earlier this week. The gentleman presented with a one-day history of saying he was not feeling well. In the emergency room he had severe bradycardic episode were acquired chest compressions and ventilation. Patient serum creatinine was noted to be up to 2.9 and serum potassium was 6.6. Moreover, patient's lactic acid was noted to be elevated at 4.6. Nephrology is been consulted for renal issues. The patient has received IV fluids as well as sodium bicarb for his metabolic acidosis. At present he is voiding from the [place] catheter that was placed. Moreover, hemodynamics are acceptable. He has had an echocardiogram that showed an EF of approximately 55%. Home Medications Medication Instructions Recorded Confirmed Type Acyclovir [Zovirax Cap/Tab] 400 mg PO 5X DAILY PRN 10/26/15 04/11/17 History Apixaban [Eliquis] 5 mg PO BID 10/26/15 04/11/17 History Aspirin [Ecotrin] 81 mg PO BEDTIME 10/26/15 04/11/17 History Diphenoxylate/Atrop 2.5-0.025 2 tablet PO Q6H PRN 10/26/15 04/11/17 History [Lomotil Tab] Esomeprazole Magnesium [Nexium] 40 mg PO BEDTIME 10/26/15 04/11/17 History Gemfibrozil 600 mg PO BID 10/26/15 04/11/17 History Glimepiride [Amaryl] 4 mg PO BID W/MEALS 10/26/15 04/11/17 History Lidocaine 5% Patch [Lidoderm 5% 1 patch TRANSDERM DAILY PRN 10/26/15 04/11/17 History Patch] Magnesium Chloride [Slow Mag] 64 mg PO BID 10/26/15 04/11/17 History Methocarbamol Tab [Robaxin Tab] 750 mg PO DAILY PRN 10/26/15 04/11/17 History [place]-3 Fatty Acids [Fish Oil] 1,000 mg PO DAILY 10/26/15 04/11/17 History Vitamin E 400 unit PO DAILY 10/26/15 04/11/17 History Zolpidem Tartrate [Ambien Cr] 12.5 mg PO BEDTIME 10/26/15 04/11/17 History diphenhydrAMINE CAP [Benadryl Cap] 25 mg PO Q6H PRN 10/26/15 04/11/17 History metFORMIN [Glucophage] 1,000 mg PO BID W/MEALS 10/26/15 04/11/17 History Carvedilol [Coreg] 6.25 mg PO BID 04/01/17 04/11/17 History Furosemide 20 mg PO DAILY 04/01/17 04/11/17 History Gabapentin 300 mg PO BID 04/01/17 04/11/17 History Multivit-Min/FA/Lutein/Zeaxant 1 tablet PO DAILY 04/01/17 04/11/17 History [Icaps Mv Tablet] Rosuvastatin Calcium [Crestor] 40 mg PO BEDTIME 04/01/17 04/11/17 History Amiodarone Tab [Cordarone Tab] 200 mg PO BID tablet 04/07/17 04/11/17 Rx Docusate Sodium Cap [Colace Cap] 100 mg PO DAILY capsule 04/07/17 04/11/17 Rx Ferrous Sulfate Tab [Feosol 325 mg PO DAILY tablet 04/07/17 04/11/17 Rx Original Tab] Magnesium Hydroxide Susp [Milk of 30 ml PO Q6H PRN 04/07/17 04/11/17 Rx Magnesia] Multivitamin (Ocuvite) [Ocuvite] 1 tablet PO DAILY tablet 04/07/17 04/11/17 Rx sitaGLIPtin [Januvia] 100 mg PO DAILY tablet 04/07/17 04/11/17 Rx Hydrocodone/Acetaminophen [Lortab 1 each PO Q8H PRN 04/11/17 04/11/17 History 10-325 mg Tablet] Insulin Glargine,Hum.rec.anlog 10 units PO QPM 04/11/17 04/11/17 History [Lantus SoloStar] Lisinopril [Lisinopril] 20 mg PO DAILY 04/11/17 04/11/17 History dilTIAZem HCl [Diltiazem ER (24 120 mg PO BID 04/11/17 04/11/17 History hr)] Allergies Allergy/AdvReac Type Severity Reaction Status Date / Time shrimp Allergy Mild ITCHING Verified 04/11/17 06:45 Sulindac [From Clinoril] Allergy Mild ITCHING Verified 04/11/17 06:45 Medical,Surgical,& Family Hx - Medical History Cardio: History of: Cerebrovascular Disease (A FLUTTER), CAD (5 stents), Hypertension, Cardiovascular Problems (DR LINDQUIST CARDIOVERSION 4-5 YEARS AGO) Neurology: History of: Peripheral Neuropathy (DIABETIC NERVE PAIN) No history of: Seizures HEENT: History of: Eye Problem (READING GLASSES, MACULAR DEGERATION PT GETS SHOTS Q6 WEEKS), Dental Problems (UPPER FULL PLATE) Endocrine: History of: Diabetes Mellitus (NIDDM), Dyslipidemia, Thyroid Disorder Respiratory: History of: COPD, Respiratory Problems (ASBESTOSIS) Genitourinary: History of: Kidney Stones Gastrointestinal: History of: GERD, Hemorrhoids, Liver Problems (ELEVATED ENZYMES IN PAST), Polyps (REMOVED), GI Problems (DIARRHEA) Musculoskeletal: History of: Back/Neck Problems, Degenerative Disk Disease ( FRACTURE 1983 DR JONES PAST HX SPINAL INJECTIONS) Other: History of: Cancer (SKIN RIGHT EAR, SHOULDER) - Surgical History Cardiac Surgeries: Sugical HX of: Femoral-Popliteal Bypass Graft, Cardiac Catheterization (5 STENTS), Cardiac Surgery (Triple Bypass 04/02/17) HEENT Surgeries: Surgical HX of: Eye Surgery (LEFT EYE RETINA SURGERY), Thyroid Surgery (BX), Tonsilectomy & Adenoidectomy Abdominal Surgeries: Surgical HX of: Cholecystectomy, Colonoscopy, EGD Orthopedic Surgeries: Surgical HX of;: Implanted Devices (5 STENTS), Orthopedic Surgery (BILATERAL CARPAL TUNNEL) - Family History Family History: Reports;: Family Anesthesia Reaction (MOTHER ALLEGRY), Family Diabetes (MOTHER), Family Heart Disease (MOTHER FATHER), Family Hypertension ( MOTHER AND FATHER), Family Stroke (FATHER) - Social History Smoking Status: Former smoker Frequency of Alcohol Use: None Type of Drug Use: None Review of Systems ROS unobtainable: due to endotracheal tube Exam - Vital Signs Vital signs: Period Temp Pulse Resp BP Sys/Guzman Pulse Ox Last 24 Hr 96.1 F-96.7 F 53-109 12-26 73-131/37-64 92-100 - General Appearance General appearance: intubated EENT: ATNC Neck: supple Respiratory: clear Cardiology: no edema, regular rate, regular rhythm Gastrointestinal: normoactive bowel sounds, no tenderness Results - Labs CBC & BMP: 04/11/17 06:56 04/11/17 06:56 Assessment and Plan - Time spent with patient Time spent with patient: Greater than 30 minutes (1) Diabetes Status: Chronic Current Visit: No Qualifiers: Diabetes mellitus type: type 2 (2) Hypertension Problem details: Well-controlled postoperatively; continue current treatment with Coreg, diltiazem, and Lasix. Status: Chronic Current Visit: No Qualifiers: Hypertension type: essential hypertension Qualified Code(s): I10 - Essential (primary) hypertension (3) S/P CABG (coronary artery bypass graft) Problem details: Three-vessel coronary artery disease; internal mammary graft to the anterior descending coronary artery and saphenous vein graft to the obtuse marginal and right coronary arteries 04/02/2017 (postop day 3). Status : Chronic Current Visit: No (4) Anemia Problem details: Multifactorial including chronic disease and acute surgical blood loss. Patient remains hemodynamically stable. Continue monitoring. There is no indication for immediate blood product transfusion at present. Status: Acute Current Visit: No (5) Acute kidney injury Problem details: Related to suspected intravascular volume depletion. IV Lasix dose discontinued earlier today. Recheck BMP in a.m. Status: Acute Current Visit: No (6) Hyperkalemia Status: Acute Assessment and plan: Acute phenomena more likely due to metabolic acidosis. We will repeat potassium this afternoon. We have given 1 amp sodium bicarb. Have adjust IV fluids with bicarbonate. Also given an amp of calcium gluconate. Moreover, will give IV Lasix 1 dose. Strict I's and O's in this patient. Current Visit: Yes (7) Respiratory failure Status: Acute Current Visit: Yes
--- NOTE | 2017-04-11 13:29 | Pulmonology Consult Note ---
Assessment and Plan (1) Diabetes Status: Chronic Assessment and plan: Sliding scale insulin. Patient was on metformin prior to admission and has some renal insufficiency at present. May be an element of lactic acidosis related to that. We will hold the metformin. Current Visit: No Qualifiers: Diabetes mellitus type: type 2 (2) S/P CABG (coronary artery bypass graft) Problem details: Three-vessel coronary artery disease; internal mammary graft to the anterior descending coronary artery and saphenous vein graft to the obtuse marginal and right coronary arteries 04/02/2017 (postop day 3). Status : Chronic Assessment and plan: No evidence of any infection at the surgical wound site. He does have small pleural effusions left greater than right that may be related to that. Does not appear to be in alice failure. Current Visit: No (3) Acute kidney injury Problem details: Related to suspected intravascular volume depletion. IV Lasix dose discontinued earlier today. Recheck BMP in a.m. Status: Acute Assessment and plan: Mild elevation of creatinine and potassium. Metformin being held. Current Visit: No (4) Respiratory failure Status: Acute Assessment and plan: We will adjust ventilator and wean as tolerated Current Visit: Yes History of Present Illness Chief complaint: Respiratory failure History of present illness: Mr. Mathew is a 67 year old male had heart surgery about 9 days ago. He went home 4 days ago. Yesterday he was feeling bad and had a good bit of vomiting overnight and was brought to the emergency room. He was intubated there in respiratory distress. He has a history of COPD. I have seen him in the distant past. He stopped smoking 23 years and then started back again but it stopped again for a year and a half. Does have a chronic cough is on bronchodilators at home. Condition is diabetic and is on metformin. Home Medications Medication Instructions Recorded Confirmed Type Acyclovir [Zovirax Cap/Tab] 400 mg PO 5X DAILY PRN 10/26/15 04/11/17 History Apixaban [Eliquis] 5 mg PO BID 10/26/15 04/11/17 History Aspirin [Ecotrin] 81 mg PO BEDTIME 10/26/15 04/11/17 History Diphenoxylate/Atrop 2.5-0.025 2 tablet PO Q6H PRN 10/26/15 04/11/17 History [Lomotil Tab] Esomeprazole Magnesium [Nexium] 40 mg PO BEDTIME 10/26/15 04/11/17 History Gemfibrozil 600 mg PO BID 10/26/15 04/11/17 History Glimepiride [Amaryl] 4 mg PO BID W/MEALS 10/26/15 04/11/17 History Lidocaine 5% Patch [Lidoderm 5% 1 patch TRANSDERM DAILY PRN 10/26/15 04/11/17 History Patch] Magnesium Chloride [Slow Mag] 64 mg PO BID 10/26/15 04/11/17 History Methocarbamol Tab [Robaxin Tab] 750 mg PO DAILY PRN 10/26/15 04/11/17 History [place]-3 Fatty Acids [Fish Oil] 1,000 mg PO DAILY 10/26/15 04/11/17 History Vitamin E 400 unit PO DAILY 10/26/15 04/11/17 History Zolpidem Tartrate [Ambien Cr] 12.5 mg PO BEDTIME 10/26/15 04/11/17 History diphenhydrAMINE CAP [Benadryl Cap] 25 mg PO Q6H PRN 10/26/15 04/11/17 History metFORMIN [Glucophage] 1,000 mg PO BID W/MEALS 10/26/15 04/11/17 History Carvedilol [Coreg] 6.25 mg PO BID 04/01/17 04/11/17 History Furosemide 20 mg PO DAILY 04/01/17 04/11/17 History Gabapentin 300 mg PO BID 04/01/17 04/11/17 History Multivit-Min/FA/Lutein/Zeaxant 1 tablet PO DAILY 04/01/17 04/11/17 History [Icaps Mv Tablet] Rosuvastatin Calcium [Crestor] 40 mg PO BEDTIME 04/01/17 04/11/17 History Amiodarone Tab [Cordarone Tab] 200 mg PO BID tablet 04/07/17 04/11/17 Rx Docusate Sodium Cap [Colace Cap] 100 mg PO DAILY capsule 04/07/17 04/11/17 Rx Ferrous Sulfate Tab [Feosol 325 mg PO DAILY tablet 04/07/17 04/11/17 Rx Original Tab] Magnesium Hydroxide Susp [Milk of 30 ml PO Q6H PRN 04/07/17 04/11/17 Rx Magnesia] Multivitamin (Ocuvite) [Ocuvite] 1 tablet PO DAILY tablet 04/07/17 04/11/17 Rx sitaGLIPtin [Januvia] 100 mg PO DAILY tablet 04/07/17 04/11/17 Rx Hydrocodone/Acetaminophen [Lortab 1 each PO Q8H PRN 04/11/17 04/11/17 History 10-325 mg Tablet] Insulin Glargine,Hum.rec.anlog 10 units PO QPM 04/11/17 04/11/17 History [Lantus SoloStar] Lisinopril [Lisinopril] 20 mg PO DAILY 04/11/17 04/11/17 History dilTIAZem HCl [Diltiazem ER (24 120 mg PO BID 04/11/17 04/11/17 History hr)] Allergies Allergy/AdvReac Type Severity Reaction Status Date / Time shrimp Allergy Mild ITCHING Verified 04/11/17 06:45 Sulindac [From Clinoril] Allergy Mild ITCHING Verified 04/11/17 06:45 ROS unobtainable: due to endotracheal tube Exam (Pulmonay) H&P - Constitutional Vitals: Period Temp Pulse Resp BP Sys/Guzman Pulse Ox Last 24 Hr 96.1 F-96.7 F 53-109 12-26 73-131/37-64 92-100 Exam: Vital signs are normal. Patient is on the ventilator but responsive. Pupils react to light. Orotracheal tube in place. Neck is supple no bruits. Chest shows a few rhonchi equal breath sounds. Heart normal rhythm no murmurs. Abdomen soft nontender bowel sounds present. Extremities no clubbing cyanosis. He has trace of edema bilaterally. Donor graft sites look clean on both legs Medical,Surgical,& Family Hx - Medical History Cardio: History of: Cerebrovascular Disease (A FLUTTER), CAD (5 stents), Hypertension, Cardiovascular Problems (DR LINDQUIST CARDIOVERSION 4-5 YEARS AGO) Neurology: History of: Peripheral Neuropathy (DIABETIC NERVE PAIN) No history of: Seizures HEENT: History of: Eye Problem (READING GLASSES, MACULAR DEGERATION PT GETS SHOTS Q6 WEEKS), Dental Problems (UPPER FULL PLATE) Endocrine: History of: Diabetes Mellitus (NIDDM), Dyslipidemia, Thyroid Disorder Respiratory: History of: COPD, Respiratory Problems (ASBESTOSIS) Genitourinary: History of: Kidney Stones Gastrointestinal: History of: GERD, Hemorrhoids, Liver Problems (ELEVATED ENZYMES IN PAST), Polyps (REMOVED), GI Problems (DIARRHEA) Musculoskeletal: History of: Back/Neck Problems, Degenerative Disk Disease ( FRACTURE 1984 DR JONES PAST HX SPINAL INJECTIONS) Other: History of: Cancer (SKIN RIGHT EAR, SHOULDER) - Surgical History Cardiac Surgeries: Sugical HX of: Femoral-Popliteal Bypass Graft, Cardiac Catheterization (5 STENTS), Cardiac Surgery (Triple Bypass 04/02/17) HEENT Surgeries: Surgical HX of: Eye Surgery (LEFT EYE RETINA SURGERY), Thyroid Surgery (BX), Tonsilectomy & Adenoidectomy Abdominal Surgeries: Surgical HX of: Cholecystectomy, Colonoscopy, EGD Orthopedic Surgeries: Surgical HX of;: Implanted Devices (5 STENTS), Orthopedic Surgery (BILATERAL CARPAL TUNNEL) - Family History Family History: Reports;: Family Anesthesia Reaction (MOTHER ALLEGRY), Family Diabetes (MOTHER), Family Heart Disease (MOTHER FATHER), Family Hypertension ( MOTHER AND FATHER), Family Stroke (FATHER) - Social History Smoking Status: Former smoker Frequency of Alcohol Use: None Type of Drug Use: None Results - Labs CBC & BMP: 04/11/17 06:56 04/11/17 06:56 Lab Results: I have reviewed the past 24 hour labs - Diagnostic Findings Procedure: Chest x-ray: image reviewed by me (Small pleural effusions. ET tube right at the scottie. Sternal wires noted.)
[2017-04-11] MEDS: SODIUM ACETATE 150 MEQ in DEXTROSE 5% 1,000 ML IV SCH ×3 (13:40→22:29)
[2017-04-11] MEDS: DILTIAZEM 30 MG TABLET PO SCH ×2 (14:00→18:00)
[2017-04-11] MEDS: LANSOPRAZOLE ODT 30 MG TABLET PO SCH (14:00)
--- NOTE | 2017-04-11 14:19 | XRay Report ---
Exam: XR chest 1V portable Date: 04/11/2017 1:48 PM Indication: Endotracheal tube placement Comparison: 04/11/2017 7:39 AM Technical: AP Findings: Nasogastric tube has been placed the distal tip appears to be in the stomach is normal. Cardiomegaly is present. Low volume left effusion and atelectatic change present. Sternotomy wires are present. Endotracheal tube is located just below the aortic knob. Cardiac pad superimposing the right chest. No pneumothorax. Impression: 1. Interval placement nasogastric tube in the stomach 2. Endotracheal tube is aortic knob 3. Cardiomegaly and previous sternotomy 4. Low volume left effusion PROCEDURE INTERPRETED AT [facility] DEPARTMENT OF RADIOLOGY Final Report Signed by: Dr. Carlos Price
[2017-04-11] MEDS: cefTRIAXone 1,000 MG in SODIUM CHLORIDE 0.9% 100 ML IV SCH (15:00)
[2017-04-11 15:17] LABS: Calcium 7.9 MG/DL (8.5-10.1); Osmolality,Calculated 290.4 MOS/KG (273-304); Potassium 5.1 MMOL/L (3.5-5.1)
[2017-04-11] MEDS: CARVEDILOL 6.25 MG TABLET PO SCH (18:00)
[2017-04-11] MEDS: GLIMEPIRIDE 4 MG TABLET PO SCH (18:00)
[2017-04-11] MEDS: ASPIRIN EC 81 MG TABLET PO SCH (20:56)
[2017-04-11] MEDS ORDERED: DILTIAZEM CD 120 MG CAPSULE PO SCH (21:00)
[2017-04-11] MEDS: AMIODARONE 200 MG TABLET PO SCH (21:04)
[2017-04-11] MEDS: GABAPENTIN 300 MG CAPSULE PO SCH (21:08)
[2017-04-11] MEDS: APIXABAN 5 MG TABLET PO SCH (22:28)
[2017-04-12] MEDS: INSULIN REGULAR 100 UNIT/ML SUBCUT SCH ×6 (01:12→20:34)
[2017-04-12] MEDS: DILTIAZEM 30 MG TABLET PO SCH ×4 (01:13→17:38)
[2017-04-12 03:40] LABS: Allen Test Positive; Pt O2 Delivery Device Ventilator
[2017-04-12 03:41] LABS: ABG Base Excess 0.3 MMOL/L (-2.5-2.5); ABG HCO3 23.5 MMOL/L (20-26); ABG Oxygen Saturation 98.3 % (95-100); ABG PCO2 32.4 MM HG (35-48); ABG PH 7.478 (7.35-7.45); ABG PO2 177.4 MM HG (80-95); ABG TCO2 24.5 MMOL/L (23-27)
[2017-04-12] MEDS: SODIUM ACETATE 150 MEQ in DEXTROSE 5% 1,000 ML IV SCH (04:29)
--- NOTE | 2017-04-12 04:51 | EKG Report ---
Stationary ECG Study 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
--- NOTE | 2017-04-12 04:51 | EKG Report ---
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1950 Requested by: Eliane Marcos Order Number: [id number] Reading MD: ESTELLE YANEZ Intervals [place] Rate: 62 P: -47 NC: 183 QRS: 79 QRSD: 96 T: 246 QT: 498 QTc: 503 Interpretive Statements SINUS RHYTHM WITH MARKED RHYTHM IRREGULARITY, POSSIBLE NON-CONDUCTED PAC, SA BLOCK, AV BLOCK, OR SINUS PAUSE POSSIBLE LEFT ATRIAL ENLARGEMENT LOW QRS VOLTAGE SEPTAL MYOCARDIAL INFARCTION, PROBABLY OLD MARKED ST ELEVATION, CONSIDER INFERIOR INJURY MARKED ST ELEVATION, CONSIDER ANTEROLATERAL INJURY ACUTE [place] INTERPRETATION BASED ON A DEFAULT AGE OF 40 YEARS Electronically Signed On 04-12-17 06:15:40 CDT by ESTELLE YANEZ [id number]
--- NOTE | 2017-04-12 04:52 | EKG Report ---
Stationary ECG Study 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
[2017-04-12 05:32] LABS: Basophils % 0.3 % (0.0-0.8); Calcium 7.4 MG/DL (8.5-10.1); Eosinophils # 0.1 10*3/uL (0.0-0.87); Eosinophils % 0.6 % (0.00-10.9); Hematocrit 28.3 VOL% (42.0-52.0); Hemoglobin 9.6 GM/DL (14.0-18.0); Immature Granulocytes % 1.7 %; Immature Granulocytes Absolute 0.17 #; Lymphocytes % 9.8 % (21.2-54.2); Magnesium 2.5 MG/DL (1.8-2.4); Mean Corpuscular HGB Conc 33.9 GM/DL (32-36); Mean Corpuscular Hemoglobin 30 PG (27-34); Mean Corpuscular Volume 87.1 FL (87-102); Mean Platelet Volume 12.1 FL (9.6-12.0); Monocytes # 0.9 10*3/uL (0.11-0.8); Monocytes % 8.8 % (1.7-12.7); NRBC # 0.04 10*3/uL; Neutrophils % 78.8 % (38.7-73.9); Osmolality,Calculated 290.4 MOS/KG (273-304); Potassium 4.4 MMOL/L (3.5-5.1); White Blood Count 10.1 T/CUMM (4-12)
[2017-04-12 05:55] LABS: Platelet Count 151 T/CUMM (130-400); Red Blood Count 3.25 MC/CUMM (3.8-5.5)
[2017-04-12] MEDS: ONDANSETRON 4 MG/2 ML VIAL IV PRN (06:32)
[2017-04-12] MEDS: PROPOFOL 1,000 MG/100 ML BOTTLE IV SCH ×2 (06:34→12:58)
--- NOTE | 2017-04-12 06:39 | Pulmonology Progress Note ---
Pulmonary - PN: Subj Interval history: This 67-year-old white male had coronary bypass surgery a couple weeks back. Came back in with respiratory failure. Has small pleural effusions more on the left than the right. He has COPD. His sputum is thick. He was given bronchodilators in the emergency room but they were not continued back here. Will add bronchodilators and Pulmozyme. Also both with steroids. Broaden antibiotics. Sputum culture. His PO2 is 177. We can reduce FiO2 and start weaning trials. Exam (Progress Note) - Constitutional Vitals: Period Temp Pulse Resp BP Sys/Guzman Pulse Ox Last 24 Hr 96.7 F-100.0 F 53-109 12-28 68-155/25-84 92-100 Exam: Patient is sedated. Vital signs normal. Pupils react to light. Orotracheal tube in place. Neck is supple. Chest reveals prolonged expiratory phase and a few rhonchi. Heart normal rate and rhythm no murmurs. Abdomen soft no masses. Extremities no clubbing or cyanosis she does have a trace of edema. Results - Labs CBC & BMP: 04/12/17 04:13 04/12/17 04:13 Lab Results: I have reviewed the past 24 hour labs - Diagnostic Findings Procedure: Chest x-ray: image reviewed by me (ET tube good position. Small pleural effusions more on the left than the right. Little change from yesterday.) Assessment and Plan (1) Diabetes Status: Chronic Assessment and plan: Sliding scale insulin. Patient was on metformin prior to admission and has some renal insufficiency at present. May be an element of lactic acidosis related to that. We will hold the metformin. 04/12/2017 acidosis corrected. Glucoses running in the 300s. Will add some Humulin 70/30 in addition to sliding scale. Current Visit: No Qualifiers: Diabetes mellitus type: type 2 (2) S/P CABG (coronary artery bypass graft) Problem details: Three-vessel coronary artery disease; internal mammary graft to the anterior descending coronary artery and saphenous vein graft to the obtuse marginal and right coronary arteries 04/02/2017 (postop day 3). Status : Chronic Assessment and plan: No evidence of any infection at the surgical wound site. He does have small pleural effusions left greater than right that may be related to that. Does not appear to be in alice failure. 04/12/2017 has small pleural effusions. Wounds appear to be intact. LV function appears intact. Current Visit: No (3) Acute kidney injury Problem details: Related to suspected intravascular volume depletion. IV Lasix dose discontinued earlier today. Recheck BMP in a.m. Status: Acute Assessment and plan: Mild elevation of creatinine and potassium. Metformin being held. 04/12/2017 creatinine up to 4.2. May need nephrology to see her. Current Visit: No (4) Respiratory failure Status: Acute Assessment and plan: We will adjust ventilator and wean as tolerated 04/12/2017 PO2 much improved. Start weaning trials. He does have COPD and were added bronchodilators and steroids. Current Visit: Yes
[2017-04-12] MEDS ORDERED: LEVOFLOXACIN INJ 500 MG in PREMIX 1 EACH IV SCH (07:00)
[2017-04-12] MEDS: ALBUTEROL/IPRATROPIUM 3 ML NEB RESP TX SCH ×3 (07:09→19:43)
[2017-04-12] MEDS: DORNASE ALFA 2.5 MG/2.5 ML VIAL RESP TX SCH ×2 (07:09→19:43)
[2017-04-12] MEDS ORDERED: LEVOFLOXACIN INJ 500 MG in PREMIX 1 EACH IV ONE (08:00)
[2017-04-12 08:04] LABS: Pt O2 Delivery Device Ventilator
[2017-04-12 08:06] LABS: ABG Base Excess 1.5 MMOL/L (-2.5-2.5); ABG HCO3 24.7 MMOL/L (20-26); ABG Oxygen Saturation 97.3 % (95-100); ABG PCO2 33.4 MM HG (35-48); ABG PH 7.486 (7.35-7.45); ABG PO2 107.5 MM HG (80-95); ABG TCO2 25.7 MMOL/L (23-27)
[2017-04-12] MEDS: INSULIN NPH/REGULAR 70/30 100 UNIT/ML SUBCUT SCH ×2 (08:17→17:21)
--- NOTE | 2017-04-12 08:22 | Cardiology Progress Note ---
Assessment and Plan (1) Hyperkalemia Status: Acute Assessment and plan: T at this point this is resolved. Current Visit: Yes (2) Respiratory failure Status: Acute Assessment and plan: On ventilator is stable. Current Visit: Yes (3) Acute kidney injury Problem details: Related to suspected intravascular volume depletion. IV Lasix dose discontinued earlier today. Recheck BMP in a.m. Status: Acute Assessment and plan: Patient's BUN and creatinine are increasing but this appears to be fairly stable. Current Visit: No (4) Diabetes Status: Chronic Assessment and plan: Will be managed by hospitalist service. Current Visit: No Qualifiers: Diabetes mellitus type: type 2 (5) Hypertension Problem details: Well-controlled postoperatively; continue current treatment with Coreg, diltiazem, and Lasix. Status: Chronic Assessment and plan: Blood pressure stable at this time. Current Visit: No Qualifiers: Hypertension type: essential hypertension Qualified Code(s): I10 - Essential (primary) hypertension (6) Coronary artery disease Status: Chronic Assessment and plan: He is now post coronary bypass surgery. He is doing well with this and is surgical wounds look good. Current Visit: No Qualifiers: Coronary Disease-Associated Artery/Lesion type: [place] artery [place] vs. transplanted heart: [place] heart Associated angina: without angina Qualified Code(s): I25.10 - Atherosclerotic heart disease of [place] coronary artery without angina pectoris (7) Atrial fibrillation Problem details: Paroxysmal; early postoperative period patient has maintained normal sinus rhythm. Systemic coagulation per consulting lurer and cardiothoracic surgery service. Patient is receiving treatment dose subQ Lovenox Status: Chronic Assessment and plan: Presently he is in sinus rhythm. Current Visit: No (8) S/P CABG (coronary artery bypass graft) Problem details: Three-vessel coronary artery disease; internal mammary graft to the anterior descending coronary artery and saphenous vein graft to the obtuse marginal and right coronary arteries 04/02/2017 (postop day 3). Status : Chronic Assessment and plan: His postsurgical wounds look good. Current Visit: No (9) Anemia Problem details: Multifactorial including chronic disease and acute surgical blood loss. Patient remains hemodynamically stable. Continue monitoring. There is no indication for immediate blood product transfusion at present. Status: Acute Assessment and plan: He has received blood this admission. Current Visit: No (10) Dyslipidemia Problem details: Receiving Crestor. Check fasting lipid profile in a.m. Status: Chronic Assessment and plan: When can we will continue his statin drug. Current Visit: No Cardiology - PN: Subj Interval history: 67-year-old man who is in the ICU. The patient had coronary bypass surgery recently and discharged on 04/07/17. He was admitted to the emergency room is seen by me while in the emergency room. He had presented with some nausea vomiting but no chest pain or other cardiac symptomatology. While emergency room he became bradycardic with wide QRS complex and required resuscitation after he arrested have respiratory failure P is intubated. His ECG had a metabolic appearance on his QRS complexes. His ECG prior to that revealed unremarkable QRS is in no acute changes. He was found the patient had severely elevated potassium and his creatinine has significantly increased over the last 4 days. Since admission in ICU is been stable. His rhythm is been stable with sinus rhythm and unremarkable QRS complexes. Hemodynamically has remained stable. His potassium is 4.4 this morning his sodium is 133. His creatinine though is increased to 4.2 BUN is 62. His bicarb is improved. The patient is awake this more responsive he denies any chest pain or anginal symptomatology. His most rhythm is been stable as noted. His cardiac situation appears to be stable at this time. Exam (Progress Note) - Constitutional Vitals: Period Temp Pulse Resp BP Sys/Guzman Pulse Ox Last 24 Hr 96.7 F-100.0 F 59-109 12-28 68-155/25-86 95-100 Exam: General appearance: His normal weight but he is intubated and mildly sedated on low-dose propofol. He is quite awake and responsive. Head exam: Intubated and without gross trauma. Eye exam: Pupils are equal and reactive. Ear exam: Auditory acuity is grossly intact our conversation. Oral exam: Orally intubated Neck exam: normal inspection no JVD. No carotid bruit. Trachea is in midline. Respiratory exam: clear to auscultation bilaterally anteriorly with good air movement. Patient is on mechanical ventilation. No rales, rhonchi or wheezes. Cardiovascular exam: regular rate and rhythm, no murmur or gallop or rub. No precordial lift. No bruits over the major arteries. Chest wall/torso: Recent sternotomy wound looks good. Peripheral Pulses: 1-2+ throughout. GI/Abdominal exam: Normal bowel sounds, soft and nontender, no abdominal bruits or pulsatile masses. Musculoskeletal/Extremities exam: Lower leg graft donor wounds look good. Minimal edema. Neurological exam: Intubated and response to our conversation and appears to be understanding appropriately. Psychiatric exam: Difficult to fully and adequately evaluate but is not agitated. Skin exam: normal color, warm. Postoperative wounds look good Result/EKG - Labs CBC & BMP: 04/12/17 04:13 04/12/17 04:13 Lab Results: I have reviewed the past 24 hour labs Labs: Laboratory Results - last 24 hr 04/11/17 04/11/17 04/11/17 08:47 09:13 11:45 WBC RBC Hgb Hct MCV MCH MCHC RDW Plt Count MPV Neut % (Auto) Lymph % (Auto) Wayne % (Auto) Eos % (Auto) Baso % (Auto) Neut # (Auto) Lymph # (Auto) Wayne # (Auto) Eos # (Auto) Baso # (Auto) Immature Gran % Nucleated RBC % Immature Gran # Nucleated RBCs # ABG pH 7.120 L* 7.275 L 7.345 L ABG pCO2 29.8 L 28.1 L 33.1 L ABG pO2 47.4 L 230.0 H 123.0 H ABG HCO3 10.0 L 14.3 L 18.7 L ABG Total CO2 9.7 L 12.5 L 17.1 L ABG O2 Saturation 64.2 L 99.8 98.7 ABG Base Excess -18.2 L -12.8 L -6.9 L FiO2 100.00 Sodium Potassium Chloride Carbon Dioxide Anion Gap BUN Creatinine GFR Calculation BUN/Creatinine Ratio Glucose POC Glucose Hemoglobin A1c Calculated Osmolality Calcium Magnesium Blood Type Antibody Screen Crossmatch 04/11/17 04/11/17 04/11/17 12:01 13:19 14:36 WBC RBC Hgb Hct MCV MCH MCHC RDW Plt Count MPV Neut % (Auto) Lymph % (Auto) Wayne % (Auto) Eos % (Auto) Baso % (Auto) Neut # (Auto) Lymph # (Auto) Wayne # (Auto) Eos # (Auto) Baso # (Auto) Immature Gran % Nucleated RBC % Immature Gran # Nucleated RBCs # ABG pH ABG pCO2 ABG pO2 ABG HCO3 ABG Total CO2 ABG O2 Saturation ABG Base Excess FiO2 Sodium 133 L Potassium 5.8 H 5.1 Chloride 99 Carbon Dioxide 20 L Anion Gap 19.1 H BUN 54 H Creatinine 3.20 H GFR Calculation 21 BUN/Creatinine Ratio 16.00 Glucose 278 H POC Glucose 363 H Hemoglobin A1c Calculated Osmolality 290.4 Calcium 7.9 L Magnesium Blood Type Antibody Screen Crossmatch 04/11/17 04/11/17 04/11/17 15:36 20:37 Unknown WBC RBC Hgb Hct MCV MCH MCHC RDW Plt Count MPV Neut % (Auto) Lymph % (Auto) Wayne % (Auto) Eos % (Auto) Baso % (Auto) Neut # (Auto) Lymph # (Auto) Wayne # (Auto) Eos # (Auto) Baso # (Auto) Immature Gran % Nucleated RBC % Immature Gran # Nucleated RBCs # ABG pH ABG pCO2 ABG pO2 ABG HCO3 ABG Total CO2 ABG O2 Saturation ABG Base Excess FiO2 Sodium Potassium Chloride Carbon Dioxide Anion Gap BUN Creatinine GFR Calculation BUN/Creatinine Ratio Glucose POC Glucose 328 H 306 H Hemoglobin A1c Calculated Osmolality Calcium Magnesium Blood Type A POSITIVE Antibody Screen Negative Crossmatch See Detail 04/12/17 04/12/17 04/12/17 00:42 03:26 03:59 WBC RBC Hgb Hct MCV MCH MCHC RDW Plt Count MPV Neut % (Auto) Lymph % (Auto) Wayne % (Auto) Eos % (Auto) Baso % (Auto) Neut # (Auto) Lymph # (Auto) Wayne # (Auto) Eos # (Auto) Baso # (Auto) Immature Gran % Nucleated RBC % Immature Gran # Nucleated RBCs # ABG pH 7.478 H ABG pCO2 32.4 L ABG pO2 177.4 H ABG HCO3 23.5 ABG Total CO2 24.5 ABG O2 Saturation 98.3 ABG Base Excess 0.3 FiO2 60.00 Sodium Potassium Chloride Carbon Dioxide Anion Gap BUN Creatinine GFR Calculation BUN/Creatinine Ratio Glucose POC Glucose 305 H 283 H Hemoglobin A1c Calculated Osmolality Calcium Magnesium Blood Type Antibody Screen Crossmatch 04/12/17 04/12/17 04/12/17 04:13 04:13 04:13 WBC 10.1 RBC 3.25 L D Hgb 9.6 L Hct 28.3 L MCV 87.1 MCH 30 MCHC 33.9 RDW 16.0 Plt Count 151 D MPV 12.1 H Neut % (Auto) 78.8 H Lymph % (Auto) 9.8 L Wayne % (Auto) 8.8 Eos % (Auto) 0.6 Baso % (Auto) 0.3 Neut # (Auto) 8.0 H Lymph # (Auto) 1.0 L Wayne # (Auto) 0.9 H Eos # (Auto) 0.1 Baso # (Auto) 0.0 Immature Gran % 1.7 Nucleated RBC % 0.4 Immature Gran # 0.17 Nucleated RBCs # 0.04 ABG pH ABG pCO2 ABG pO2 ABG HCO3 ABG Total CO2 ABG O2 Saturation ABG Base Excess FiO2 Sodium 133 L Potassium 4.4 Chloride 94 L Carbon Dioxide 24 Anion Gap 19.4 H BUN 62 H Creatinine 4.20 H GFR Calculation 16 BUN/Creatinine Ratio 14.00 Glucose 223 H POC Glucose Hemoglobin A1c 6.8 H Calculated Osmolality 290.4 Calcium 7.4 L Magnesium 2.5 H Blood Type Antibody Screen Crossmatch 04/12/17 04/12/17 04/12/17 06:15 08:00 08:18 WBC RBC Hgb Hct MCV MCH MCHC RDW Plt Count MPV Neut % (Auto) Lymph % (Auto) Wayne % (Auto) Eos % (Auto) Baso % (Auto) Neut # (Auto) Lymph # (Auto) Wayne # (Auto) Eos # (Auto) Baso # (Auto) Immature Gran % Nucleated RBC % Immature Gran # Nucleated RBCs # ABG pH 7.486 H ABG pCO2 33.4 L ABG pO2 107.5 H ABG HCO3 24.7 ABG Total CO2 25.7 ABG O2 Saturation 97.3 ABG Base Excess 1.5 FiO2 50.00 Sodium Potassium Chloride Carbon Dioxide Anion Gap BUN Creatinine GFR Calculation BUN/Creatinine Ratio Glucose POC Glucose 303 H 260 H Hemoglobin A1c Calculated Osmolality Calcium Magnesium Blood Type Antibody Screen Crossmatch - Impressions Impressions: Telemetry was sinus rhythm without dysrhythmias since admission.
[2017-04-12] MEDS: SODIUM CHLORIDE 0.9% 1,000 ML IV SCH ×3 (08:27→22:22)
[2017-04-12] MEDS: methylPREDNISolone SOD SUC 40 MG/1 ML VIAL IV SCH ×2 (08:36→18:36)
[2017-04-12] MEDS: CARVEDILOL 6.25 MG TABLET PO SCH ×2 (08:40→17:25)
[2017-04-12] MEDS: GLIMEPIRIDE 4 MG TABLET PO SCH ×2 (08:47→17:11)
--- NOTE | 2017-04-12 08:55 | Nephrology Progress Note ---
Nephrology - PN: Subj Interval history: The patient remains ventilated however he is awake. Decreased urine output serum creatinine is noted be 4.2. However, there appears to be some dark sediment in the catheter which suggests ATN and has had approximately 15 cc of urine output in the last hour. It appears that patient may still be intravascularly down. At this time will continue with IV fluids with normal saline and continue to monitor urine output. Will bolus 250 normal saline if urine output drops below 15 cc an hour. Exam (PN)-Nephrology - Vital Signs Vital signs: Period Temp Pulse Resp BP Sys/Guzman Pulse Ox Last 24 Hr 96.7 F-100.0 F 59-92 12-28 68-155/25-86 95-100 - General Appearance General appearance: well-developed, intubated EENT: ATNC Neck: supple Respiratory: clear Cardiology: no edema, regular rate, regular rhythm Gastrointestinal: normoactive bowel sounds, no tenderness Integumentary: no rash - Lab 04/12/17 04:13 04/12/17 04:13 Most recent lab results ABG pH 7.486 (7.35-7.45) H 04/12/17 08:00 ABG pCO2 33.4 MM HG (35-48) L 04/12/17 08:00 ABG pO2 107.5 MM HG (80-95) H 04/12/17 08:00 ABG HCO3 24.7 MMOL/L (20-26) 04/12/17 08:00 ABG O2 Saturation 97.3 % (95-100) 04/12/17 08:00 Calcium 7.4 MG/DL (8.5-10.1) L 04/12/17 04:13 Magnesium 2.5 MG/DL (1.8-2.4) H 04/12/17 04:13 Assessment and Plan (1) Diabetes Status: Chronic Current Visit: No Qualifiers: Diabetes mellitus type: type 2 (2) Hypertension Problem details: Well-controlled postoperatively; continue current treatment with Coreg, diltiazem, and Lasix. Status: Chronic Current Visit: No Qualifiers: Hypertension type: essential hypertension Qualified Code(s): I10 - Essential (primary) hypertension (3) S/P CABG (coronary artery bypass graft) Problem details: Three-vessel coronary artery disease; internal mammary graft to the anterior descending coronary artery and saphenous vein graft to the obtuse marginal and right coronary arteries 04/02/2017 (postop day 3). Status : Chronic Current Visit: No (4) Anemia Problem details: Multifactorial including chronic disease and acute surgical blood loss. Patient remains hemodynamically stable. Continue monitoring. There is no indication for immediate blood product transfusion at present. Status: Acute Assessment and plan: Status post 2 units packed red blood cells. Current Visit: No (5) Acute kidney injury Problem details: Related to suspected intravascular volume depletion. IV Lasix dose discontinued earlier today. Recheck BMP in a.m. Status: Acute Assessment and plan: Acute kidney injury. More likely due to ATN. Continue IV fluids. Bolus normal saline as needed for decreased urine output. 1 Current Visit: No (6) Hyperkalemia Status: Resolved Assessment and plan: Acute phenomena more likely due to metabolic acidosis. We will repeat potassium this afternoon. We have given 1 amp sodium bicarb. Have adjust IV fluids with bicarbonate. Also given an amp of calcium gluconate. Moreover, will give IV Lasix 1 dose. Strict I's and O's in this patient. Current Visit: Yes (7) Respiratory failure Status: Acute Current Visit: Yes
[2017-04-12] MEDS ORDERED: NON-FORMULARY MEDICATION (Umeclidinium Brm/Vilanterol Tr [Anoro Ellipta] 1 PUFF) INH SCH (09:00)
[2017-04-12] MEDS: FERROUS SULFATE 325 MG TABLET PO SCH (09:19)
[2017-04-12] MEDS: GABAPENTIN 300 MG CAPSULE PO SCH ×2 (09:19→20:34)
[2017-04-12] MEDS: APIXABAN 5 MG TABLET PO SCH ×2 (09:19→20:34)
[2017-04-12] MEDS: AMIODARONE 200 MG TABLET PO SCH ×2 (09:20→20:35)
[2017-04-12] MEDS: MULTIVITAMIN (OCUVITE) TABLET PO SCH (09:21)
[2017-04-12] MEDS: LANSOPRAZOLE ODT 30 MG TABLET PO SCH (09:35)
--- NOTE | 2017-04-12 10:25 | XRay Report ---
Portable chest Date: 04/12/2017 Clinical history: Ventilator Comparison: 04/11/2017 Technique: Portable AP sitting chest Findings: Stable cardiomegaly and supportive devices. Minimally progressive parenchymal findings with minimally larger pleural effusions. Findings remain more prominent on the left. Stable mediastinum and osseous structures. Impression: Minimally progressive pulmonary edema/infiltration/atelectasis with larger small pleural effusions. The supportive devices remain in satisfactory position. PROCEDURE INTERPRETED AT [facility] DEPARTMENT OF RADIOLOGY Final Report Signed by: Dr. Ines Nicholas
[2017-04-12] MEDS ORDERED: SODIUM CHLORIDE 0.9% 250 ML IV ONE (11:02)
--- NOTE | 2017-04-12 12:34 | Hospitalist Progress Note ---
Assessment and Plan (1) Respiratory failure Status: Acute Assessment and plan: The patient presents to the hospital with volume depletion, elevated creatinine , and required intubation in the emergency room due to respiratory failure. I coordinated care with the dip painter, emergency specialist, and vegetable preparer today. The patient will continue on ventilator with volume infusion and pressor agent to improve renal blood flow. We will recheck electrolytes tomorrow. Current Visit: Yes (2) Diabetes Status: Chronic Current Visit: No Qualifiers: Diabetes mellitus type: type 2 (3) Hypertension Problem details: Well-controlled postoperatively; continue current treatment with Coreg, diltiazem, and Lasix. Status: Chronic Current Visit: No Qualifiers: Hypertension type: essential hypertension Qualified Code(s): I10 - Essential (primary) hypertension (4) S/P CABG (coronary artery bypass graft) Problem details: Three-vessel coronary artery disease; internal mammary graft to the anterior descending coronary artery and saphenous vein graft to the obtuse marginal and right coronary arteries 04/02/2017 (postop day 3). Status : Chronic Current Visit: No (5) Hyperkalemia Status: Resolved Current Visit: Yes (6) Renal failure Status: Acute Current Visit: Yes Hospitalist: Subjective Interval history: The patient was admitted to the hospital due to shortness of breath and chest discomfort. He is responding to diuresis but kidney function is worsened. Dr. Alvarado feels like he is volume depleted and the patient will receive aggressive IV hydration today and we will observe kidney output. The patient is orally intubated and mechanically ventilated today. Exam - Constitutional Vitals: Period Temp Pulse Resp BP Sys/Guzman Pulse Ox Last 24 Hr 97.5 F-100.0 F 76-92 12-28 68-155/2-87 95-100 General appearance: normal weight - Head Head exam: Present: normal inspection - Respiratory Respiratory exam: Present: clear to auscultation bilaterally - Cardiovascular Cardiovascular exam: Present: regular rate and rhythm - GI/Abdominal GI/Abdominal exam: Present: normal bowel sounds Results - Labs CBC & BMP: 04/12/17 04:13 04/12/17 04:13 Lab Results: I have reviewed the past 24 hour labs
[2017-04-12] MEDS: DOBUTamine 500 MG/250 ML PREMIX IV SCH (12:57)
[2017-04-12] MEDS: cefTRIAXone 1,000 MG in SODIUM CHLORIDE 0.9% 100 ML IV SCH (14:40)
[2017-04-12] MEDS: SODIUM CHLORIDE 0.9% 250 ML IV PRN ×2 (15:26→20:34)
[2017-04-12] MEDS: ASPIRIN EC 81 MG TABLET PO SCH (20:36)
[2017-04-13] MEDS: SODIUM CHLORIDE 0.9% 250 ML IV PRN ×2 (00:06→04:23)
[2017-04-13] MEDS: INSULIN REGULAR 100 UNIT/ML SUBCUT SCH ×7 (00:11→23:17)
[2017-04-13] MEDS: DILTIAZEM 30 MG TABLET PO SCH ×2 (00:13→05:49)
[2017-04-13] MEDS: ALBUTEROL/IPRATROPIUM 3 ML NEB RESP TX SCH ×4 (01:10→19:16)
[2017-04-13 03:15] LABS: ABG Base Excess -4.2 MMOL/L (-2.5-2.5); ABG HCO3 20.8 MMOL/L (20-26); ABG Oxygen Saturation 92.4 % (95-100); ABG PCO2 33.4 MM HG (35-48); ABG PH 7.389 (7.35-7.45); ABG PO2 68.5 MM HG (80-95); ABG TCO2 18.8 MMOL/L (23-27); Allen Test Positive; Pt O2 Delivery Device Ventilator
[2017-04-13] MEDS: ONDANSETRON 4 MG/2 ML VIAL IV PRN (03:30)
[2017-04-13 05:27] LABS: Basophils % 0.1 % (0.0-0.8); Hematocrit 27.2 VOL% (42.0-52.0); Hemoglobin 9.1 GM/DL (14.0-18.0); Immature Granulocytes % 1.3 %; Immature Granulocytes Absolute 0.15 #; Lymphocytes # 0.5 10*3/uL (1.4-4.0); Lymphocytes % 4.1 % (21.2-54.2); Mean Corpuscular HGB Conc 33.5 GM/DL (32-36); Mean Corpuscular Hemoglobin 30 PG (27-34); Mean Corpuscular Volume 88.9 FL (87-102); Mean Platelet Volume 12.3 FL (9.6-12.0); Monocytes # 0.6 10*3/uL (0.11-0.8); Monocytes % 5.3 % (1.7-12.7); Neutrophils # 10.3 10*3/uL (1.4-7.4); Neutrophils % 89.2 % (38.7-73.9); Platelet Count 122 T/CUMM (130-400); Red Blood Count 3.06 MC/CUMM (3.8-5.5); White Blood Count 11.5 T/CUMM (4-12)
[2017-04-13] MEDS: SODIUM CHLORIDE 0.9% 1,000 ML IV SCH ×2 (05:50→10:58)
[2017-04-13] MEDS: PROPOFOL 1,000 MG/100 ML BOTTLE IV SCH ×4 (05:50→21:00)
[2017-04-13 06:04] LABS: Calcium 7.1 MG/DL (8.5-10.1); Magnesium 2.4 MG/DL (1.8-2.4); Osmolality,Calculated 291.4 MOS/KG (273-304); Potassium 4.5 MMOL/L (3.5-5.1)
[2017-04-13 06:17] LABS: Burr Cells Slight; Hypochromasia Slight; Lymphocytes 6 % (20-55); Microcytosis Slight; Platelet Estimate Normal; Segmented Neutrophils 90 % (50-85); Total Cells Counted 100
[2017-04-13] MEDS ORDERED: PROMETHAZINE INJ 25 MG in SODIUM CHLORIDE 0.9% 50 ML IV PRN (06:35)
--- NOTE | 2017-04-13 06:50 | Pulmonology Progress Note ---
Pulmonary - PN: Subj Interval history: This 67-year-old white male had coronary bypass surgery a couple weeks back. Came back in with respiratory failure. Has small pleural effusions more on the left than the right. He has COPD. His sputum is thick. He was given bronchodilators in the emergency room but they were not continued back here. Will add bronchodilators and Pulmozyme. Also both with steroids. Broaden antibiotics. Sputum culture. His PO2 is 177. We can reduce FiO2 and start weaning trials. 04/13/2017 patient has increased abdominal girth and his abdomen is tight. Chest x-ray looks a little better. Creatinine has risen to 5.3. I do not think he is ready for extubation yet but will start weaning trials. Needs abdomen evaluated further. Abdominal film is nonspecific. Concerned about bowel ischemia. Exam (Progress Note) - Constitutional Vitals: Period Temp Pulse Resp BP Sys/Guzman Pulse Ox Last 24 Hr 97.0 F-97.5 F 67-91 12-24 79-148/2-88 92-99 Exam: Patient is alert, fairly calm, responsive. Vital signs normal. Pupils react to light. Orotracheal tube in place. Neck is supple. Chest reveals prolonged expiratory phase and a few rhonchi. Heart normal rate and rhythm no murmurs. Abdomen is tight and he has abdominal wall edema. Extremities no clubbing or cyanosis. he does have a 2+ edema. Results - Labs CBC & BMP: 04/13/17 04:51 04/13/17 04:51 Lab Results: I have reviewed the past 24 hour labs - Diagnostic Findings Procedure: Chest x-ray: image reviewed by me (Slightly more pleural effusion than yesterday. More on the left than the right but still modest.) Assessment and Plan (1) Diabetes Status: Chronic Assessment and plan: Sliding scale insulin. Patient was on metformin prior to admission and has some renal insufficiency at present. May be an element of lactic acidosis related to that. We will hold the metformin. 04/12/2017 acidosis corrected. Glucoses running in the 300s. Will add some Humulin 70/30 in addition to sliding scale. 04/13/2017 continuing sliding scale. Glucoses in 200s. Current Visit: No Qualifiers: Diabetes mellitus type: type 2 (2) S/P CABG (coronary artery bypass graft) Problem details: Three-vessel coronary artery disease; internal mammary graft to the anterior descending coronary artery and saphenous vein graft to the obtuse marginal and right coronary arteries 04/02/2017 (postop day 3). Status : Chronic Assessment and plan: No evidence of any infection at the surgical wound site. He does have small pleural effusions left greater than right that may be related to that. Does not appear to be in alice failure. 04/12/2017 has small pleural effusions. Wounds appear to be intact. LV function appears intact. 04/13/2017 watching pleural effusions. May need drainage of the one on left if it increases anymore. Current Visit: No (3) Acute kidney injury Problem details: Related to suspected intravascular volume depletion. IV Lasix dose discontinued earlier today. Recheck BMP in a.m. Status: Acute Assessment and plan: Mild elevation of creatinine and potassium. Metformin being held. 04/12/2017 creatinine up to 4.2. May need nephrology to see her. 04/13/2017 creatinine up to 5.3. Nephrology seeing. Urine output is quite low Current Visit: No (4) Respiratory failure Status: Acute Assessment and plan: We will adjust ventilator and wean as tolerated 04/12/2017 PO2 much improved. Start weaning trials. He does have COPD and were added bronchodilators and steroids. 04/13/2017 ABGs improved. Do not think he is ready to be extubated until abdominal process is defined and improved. Current Visit: Yes
[2017-04-13] MEDS: DORNASE ALFA 2.5 MG/2.5 ML VIAL RESP TX SCH ×2 (07:46→19:17)
--- NOTE | 2017-04-13 08:12 | XRay Report ---
History: Patient on ventilator Date: 04/13/2017 at 3:14 AM Study: Chest x-ray AP portable Comparison exam: 04/12/2017 The endotracheal and nasogastric tubes remain in place. There is cardiomegaly. The pulmonary vasculature is slightly prominent. There is increasing mild to moderate left pleural effusion and mild right pleural effusion. There is increasing hazy edema throughout the left lung and also in the right lower lung. Osseous structures are unchanged. Impression: Worsening pulmonary edema and bilateral pleural effusion PROCEDURE INTERPRETED AT [facility] DEPARTMENT OF RADIOLOGY Final Report Signed by: Dr. Clementina Vicente
--- NOTE | 2017-04-13 08:13 | XRay Report ---
History: Nasogastric tube placement Date: 04/13/2017 at 6:09 AM Study: Chest x-ray single view portable Comparison exam: 04/13/2017 at 3:14 AM The nasogastric tube is positioned with its tip overlying the region of the distal stomach or proximal duodenum. The exam is otherwise grossly unchanged. Impression: The nasogastric tube tip overlies the region of the distal stomach or proximal duodenum PROCEDURE INTERPRETED AT [facility] DEPARTMENT OF RADIOLOGY Final Report Signed by: Dr. Clementina Vicente
--- NOTE | 2017-04-13 08:32 | CT Report ---
History is pleural effusions, ileus, abdominal distention Scattered 5 mm mediastinal nodes present. There are coronary artery calcifications present. There is a large pericardial effusion present which is mildly hyperdense. There is scoliotic prior median sternotomy. Minimal retrosternal density could be related to the prior median sternotomy There are are large left and moderate right pleural effusions. There is underlying elevation with air bronchograms in the left lower lobe and atelectasis in the posterior right chest. Minimal linear opacities in the lung bases present. Abdomen: Patient is status post cholecystectomy. Tiny amount of fluid present adjacent to the liver and spleen. There is diffuse body wall edema. There is a 5 cm left renal cyst. No secondary signs of acute ureteral obstruction seen No enlarged retroperitoneal nodes seen Bowel is unopacified Pelvis: There are mild sigmoid and descending colon diverticuli. There is a small amount of free fluid in the pelvis without more focal inflammatory changes seen. No pelvic adenopathy identified. Impression: 1. Large mildly hyperdense pericardial effusion 2. Left greater than right pleural effusions with underlying consolidation 3. Small amount of ascites 4. Diverticulosis 5. 5 cm left renal cyst 6. Prior cholecystectomy 7. Dense coronary artery calcifications The CT exam was performed using one or more of the following dose reduction techniques: Automated exposure control, adjustment of the mA and/or kV according to patient size, or use of iterative reconstruction technique. PROCEDURE INTERPRETED AT [facility] DEPARTMENT OF RADIOLOGY Final Report Signed by: Dr. Taryn Daniel
--- NOTE | 2017-04-13 08:49 | Cardiology Progress Note ---
<Rula Cordova E - Last Filed: 04/13/17 08:50> Assessment and Plan - Time spent with patient Time spent with patient: Greater than 30 minutes (1) Respiratory failure Status: Acute Assessment and plan: SEE PLAN OF CARE LISTED BELOW Current Visit: Yes (2) Hyperkalemia Status: Resolved Assessment and plan: SEE PLAN OF CARE LISTED BELOW Current Visit: Yes (3) Acute kidney injury Problem details: Related to suspected intravascular volume depletion. IV Lasix dose discontinued earlier today. Recheck BMP in a.m. Status: Acute Assessment and plan: SEE PLAN OF CARE LISTED BELOW Current Visit: No (4) Anemia Problem details: Multifactorial including chronic disease and acute surgical blood loss. Patient remains hemodynamically stable. Continue monitoring. There is no indication for immediate blood product transfusion at present. Status: Acute Assessment and plan: SEE PLAN OF CARE LISTED BELOW Current Visit: No (5) Atrial fibrillation Problem details: Paroxysmal; early postoperative period patient has maintained normal sinus rhythm. Systemic coagulation per consulting nursing scheduler and cardiothoracic surgery service. Patient is receiving treatment dose subQ Lovenox Status: Chronic Assessment and plan: SEE PLAN OF CARE LISTED BELOW Current Visit: No (6) Coronary artery disease Status: Chronic Assessment and plan: SEE PLAN OF CARE LISTED BELOW Current Visit: No Qualifiers: Coronary Disease-Associated Artery/Lesion type: [place] artery [place] vs. transplanted heart: [place] heart Associated angina: without angina Qualified Code(s): I25.10 - Atherosclerotic heart disease of [place] coronary artery without angina pectoris (7) Diabetes Status: Chronic Assessment and plan: SEE PLAN OF CARE LISTED BELOW Current Visit: No Qualifiers: Diabetes mellitus type: type 2 (8) Dyslipidemia Problem details: Receiving Crestor. Check fasting lipid profile in a.m. Status: Chronic Assessment and plan: SEE PLAN OF CARE LISTED BELOW Current Visit: No (9) Hypertension Problem details: Well-controlled postoperatively; continue current treatment with Coreg, diltiazem, and Lasix. Status: Chronic Current Visit: No Qualifiers: Hypertension type: essential hypertension Qualified Code(s): I10 - Essential (primary) hypertension (10) S/P CABG (coronary artery bypass graft) Problem details: Three-vessel coronary artery disease; internal mammary graft to the anterior descending coronary artery and saphenous vein graft to the obtuse marginal and right coronary arteries 04/02/2017 (postop day 3). Status : Chronic Assessment and plan: SEE PLAN OF CARE LISTED BELOW Current Visit: No Cardiology - PN: Subj Interval history: GENERAL ROAD SUPERVISOR: DR. BAUTISTA SUMMARY: Mr. Mathew, 67WM, underwent elective cardiac catheterization April 01, 2017 revealing severe three-vessel CAD, EF 60%. April 02, 2017 underwent CABG 3 (SUE - LAD, SVG - OM, SVG - RCA). Tolerated the procedure well and without complication. He was discharged home in stable condition April 07, 2017. Patient returned to the ED of [facility] April 11, 2017 with nausea and vomiting. In the ER, he suddenly became bradycardic, hypotensive and required CPR, intubation and resuscitation. He was found to be hyperkalemic (potassium 6.6). EKG after CODE revealed bradycardia with a wide QRS complex. Cardiology was asked to evaluate for possible STEMI. It is felt this was NSTEMI with more of a metabolic ECG change with right wide QRS complex but without findings of acute [place]. The repeat EKG revealed narrow QRS complex, no ST elevation. He has chronic atrial fibrillation. He is also found to be in acute renal failure. His only new medication at discharge was Amiodarone. Echo April 11, 2017: EF 50% without significant valvular abnormality. APRIL 13, 2017: This morning, patient is responsive. Abdomen firm with scant bowel sounds. Patient acknowledges significant abdominal pain. Creatinine has worsened at 5.3. ALT, AST elevated. Will repeat LFTs this morning. Hold lipid -lowering agent at this time. Post CABG anemia seems to be stable. He is going for CT Abdomen this morning. Will order EKG this morning. Few telemetry strips recorded over the past 48 hours. Will ask more frequently to be scanned in. Eliquis continues at 5 mg twice daily. At this point, I will hold Eliquis until patient's abdominal issues were addressed. Will further discuss with Dr. Bautista and await additional recommendations. ASSESSMENT/PLAN: 1. RESPIRATORY FAILURE - intubated, continue current plan of care. Pulmonary assisting. 2. HYPERKALEMIA - resolved. 3. CAD - 3VCAD now status post revascularization. On Aspirin, beta-veronika. Holding SANTOS inhibitor due to acute kidney injury. Holding lipid-lowering agent due to elevated ALT, AST. LFTs pending. 4. S/P CABG - SUE - LAD, SVG - OM, SVG - RCA. Continue current plan of care 5. HYPERTENSION - usually well controlled. 6. DYSLIPIDEMIA - LDL at goal (30) during last hospital stay. Holding lipid- lowering agent at this point. 7. ATRIAL FIBRILLATION -EKG this morning. Pending on LFTs, may have to discontinue amiodarone or hold for a while. At this point, amiodarone 200 mg orally twice daily with previous plans to decreased to once daily April 10, 2017. Will hold Eliquis now until abdominal issues addressed. 8. DIABETES - Hospitalist has been instrumental in better controlling diabetes 9. ANEMIA - stable 10. ACUTE KIDNEY INJURY - creatinine continues to increase. Avoiding nephrotoxic agents 11. ABDOMINAL DISTENTION, PAIN - CT Abdomen this morning. Exam (Progress Note) - Constitutional Vitals: Period Temp Pulse Resp BP Sys/Guzman Pulse Ox Last 24 Hr 97.0 F-97.5 F 67-91 12-24 79-148/2-88 90-99 Exam: General: [Appears to be in abdominal pain. Cooperative. ] HEENT: [PERRL, normocephalic, atraumatic. Mucous membranes moist. No jaundice noted. Conjunctiva moist and clear, sclerae anicteric] Neck: Unable to assess for JVD due to habitus. No carotid bruit appreciated Cardiac: [Regular rate and rhythm.] [No obvious murmur rub or gallop.] Sternotomy incision healing well without dehiscence or drainage Lungs: [Clear to auscultation without accessory muscle use to assist the respiratory pattern.] Symmetrical chest wall movements noted. Abdomen: Good, firm, sluggish bowel sounds. Tender to touch. Musculoskeletal: No fluid collection. Decreased range of motion is noted. Extremities: No clubbing, cyanosis noted. [ No edema noted.] Upper extremity pulses 2+. Lower extremity pulses 2+. Bilateral lower extremity incision is healing well without dehiscence or drainage. . Skin: No unusual lesions or rashes. No skin breakdown appreciated. Neuro: Awakes, pulse commands appropriately. Moves all extremities well without hemiparesis or paralysis. No essential tremor is appreciated. Result/EKG - Labs CBC & BMP: 04/13/17 04:51 04/13/17 04:51 Lab Results: I have reviewed the past 24 hour labs Labs: Laboratory Results - last 24 hr 04/12/17 04/12/17 04/12/17 12:36 16:29 20:28 WBC RBC Hgb Hct MCV MCH MCHC RDW Plt Count MPV Neut % (Auto) Lymph % (Auto) [place] % (Auto) Eos % (Auto) Baso % (Auto) Neut # (Auto) Lymph # (Auto) [place] # (Auto) Eos # (Auto) Baso # (Auto) Total Counted Immature Gran % Nucleated RBC % Immature Gran # Segmented Neutrophils Lymphocytes Monocytes Nucleated RBCs # Platelet Estimate Hypochromasia Microcytosis Caitlyn Cells ABG pH ABG pCO2 ABG pO2 ABG HCO3 ABG Total CO2 ABG O2 Saturation ABG Base Excess FiO2 Sodium Potassium Chloride Carbon Dioxide Anion Gap BUN Creatinine GFR Calculation BUN/Creatinine Ratio Glucose POC Glucose 221 H 241 H 274 H Calculated Osmolality Calcium Magnesium B-Natriuretic Peptide Amylase Lipase 04/13/17 04/13/17 04/13/17 00:09 03:00 03:56 WBC RBC Hgb Hct MCV MCH MCHC RDW Plt Count MPV Neut % (Auto) Lymph % (Auto) [place] % (Auto) Eos % (Auto) Baso % (Auto) Neut # (Auto) Lymph # (Auto) [place] # (Auto) Eos # (Auto) Baso # (Auto) Total Counted Immature Gran % Nucleated RBC % Immature Gran # Segmented Neutrophils Lymphocytes Monocytes Nucleated RBCs # Platelet Estimate Hypochromasia Microcytosis Caitlyn Cells ABG pH 7.389 ABG pCO2 33.4 L ABG pO2 68.5 L ABG HCO3 20.8 ABG Total CO2 18.8 L ABG O2 Saturation 92.4 L ABG Base Excess -4.2 L FiO2 40.00 Sodium Potassium Chloride Carbon Dioxide Anion Gap BUN Creatinine GFR Calculation BUN/Creatinine Ratio Glucose POC Glucose 220 H 214 H Calculated Osmolality Calcium Magnesium B-Natriuretic Peptide Amylase Lipase 04/13/17 04/13/17 04/13/17 04:51 04:51 04:51 WBC 11.5 RBC 3.06 L Hgb 9.1 L Hct 27.2 L MCV 88.9 MCH 30 MCHC 33.5 RDW 16.0 Plt Count 122 L MPV 12.3 H Neut % (Auto) 89.2 H Lymph % (Auto) 4.1 L [place] % (Auto) 5.3 Eos % (Auto) 0.0 Baso % (Auto) 0.1 Neut # (Auto) 10.3 H Lymph # (Auto) 0.5 L [place] # (Auto) 0.6 Eos # (Auto) 0.0 Baso # (Auto) 0.0 Total Counted 100 Immature Gran % 1.3 Nucleated RBC % 0.0 Immature Gran # 0.15 Segmented Neutrophils 90 H Lymphocytes 6 L Monocytes 4 Nucleated RBCs # 0.00 Platelet Estimate Normal Hypochromasia Slight Microcytosis Slight Caitlyn Cells Slight ABG pH ABG pCO2 ABG pO2 ABG HCO3 ABG Total CO2 ABG O2 Saturation ABG Base Excess FiO2 Sodium 133 L Potassium 4.5 Chloride 98 Carbon Dioxide 20 L Anion Gap 19.5 H BUN 70 H Creatinine 5.30 H GFR Calculation 12 BUN/Creatinine Ratio 13.00 Glucose 184 H POC Glucose Calculated Osmolality 291.4 Calcium 7.1 L Magnesium 2.4 B-Natriuretic Peptide 330 H Amylase Lipase 04/13/17 04/13/17 04:51 07:48 WBC RBC Hgb Hct MCV MCH MCHC RDW Plt Count MPV Neut % (Auto) Lymph % (Auto) [place] % (Auto) Eos % (Auto) Baso % (Auto) Neut # (Auto) Lymph # (Auto) [place] # (Auto) Eos # (Auto) Baso # (Auto) Total Counted Immature Gran % Nucleated RBC % Immature Gran # Segmented Neutrophils Lymphocytes Monocytes Nucleated RBCs # Platelet Estimate Hypochromasia Microcytosis Caitlyn Cells ABG pH ABG pCO2 ABG pO2 ABG HCO3 ABG Total CO2 ABG O2 Saturation ABG Base Excess FiO2 Sodium Potassium Chloride Carbon Dioxide Anion Gap BUN Creatinine GFR Calculation BUN/Creatinine Ratio Glucose POC Glucose 232 H Calculated Osmolality Calcium Magnesium B-Natriuretic Peptide Amylase 100 Lipase 126.0 D - Diagnostic Findings Procedure: Chest x-ray: report reviewed by me, CT Abdomen and Pelvis: pending - EKG EKG results: interpreted by me EKG shows: sinus rhythm, atrial fibrillation <Severino Bautista - Last Filed: 04/13/17 10:01> Exam (Progress Note) - Constitutional Vitals: Period Temp Pulse Resp BP Sys/Guzman Pulse Ox Last 24 Hr 97.0 F-97.5 F 67-91 12-23 79-148/2-88 90-99 Result/EKG - Labs CBC & BMP: 04/13/17 04:51 04/13/17 04:51 Labs: Laboratory Results - last 24 hr 04/12/17 04/12/17 04/12/17 12:36 16:29 20:28 WBC RBC Hgb Hct MCV MCH MCHC RDW Plt Count MPV Neut % (Auto) Lymph % (Auto) [place] % (Auto) Eos % (Auto) Baso % (Auto) Neut # (Auto) Lymph # (Auto) [place] # (Auto) Eos # (Auto) Baso # (Auto) Total Counted Immature Gran % Nucleated RBC % Immature Gran # Segmented Neutrophils Lymphocytes Monocytes Nucleated RBCs # Platelet Estimate Hypochromasia Microcytosis Caitlyn Cells ABG pH ABG pCO2 ABG pO2 ABG HCO3 ABG Total CO2 ABG O2 Saturation ABG Base Excess FiO2 Sodium Potassium Chloride Carbon Dioxide Anion Gap BUN Creatinine GFR Calculation BUN/Creatinine Ratio Glucose POC Glucose 221 H 241 H 274 H Calculated Osmolality Lactic Acid Calcium Magnesium Total Bilirubin Direct Bilirubin Indirect Bilirubin AST ALT Alkaline Phosphatase B-Natriuretic Peptide Total Protein Albumin Amylase Lipase 04/13/17 04/13/17 04/13/17 00:09 03:00 03:56 WBC RBC Hgb Hct MCV MCH MCHC RDW Plt Count MPV Neut % (Auto) Lymph % (Auto) [place] % (Auto) Eos % (Auto) Baso % (Auto) Neut # (Auto) Lymph # (Auto) [place] # (Auto) Eos # (Auto) Baso # (Auto) Total Counted Immature Gran % Nucleated RBC % Immature Gran # Segmented Neutrophils Lymphocytes Monocytes Nucleated RBCs # Platelet Estimate Hypochromasia Microcytosis Caitlyn Cells ABG pH 7.389 ABG pCO2 33.4 L ABG pO2 68.5 L ABG HCO3 20.8 ABG Total CO2 18.8 L ABG O2 Saturation 92.4 L ABG Base Excess -4.2 L FiO2 40.00 Sodium Potassium Chloride Carbon Dioxide Anion Gap BUN Creatinine GFR Calculation BUN/Creatinine Ratio Glucose POC Glucose 220 H 214 H Calculated Osmolality Lactic Acid Calcium Magnesium Total Bilirubin Direct Bilirubin Indirect Bilirubin AST ALT Alkaline Phosphatase B-Natriuretic Peptide Total Protein Albumin Amylase Lipase 04/13/17 04/13/17 04/13/17 04:47 04:51 04:51 WBC RBC Hgb Hct MCV MCH MCHC RDW Plt Count MPV Neut % (Auto) Lymph % (Auto) [place] % (Auto) Eos % (Auto) Baso % (Auto) Neut # (Auto) Lymph # (Auto) [place] # (Auto) Eos # (Auto) Baso # (Auto) Total Counted Immature Gran % Nucleated RBC % Immature Gran # Segmented Neutrophils Lymphocytes Monocytes Nucleated RBCs # Platelet Estimate Hypochromasia Microcytosis Kenneth Cells ABG pH ABG pCO2 ABG pO2 ABG HCO3 ABG Total CO2 ABG O2 Saturation ABG Base Excess FiO2 Sodium 133 L Potassium 4.5 Chloride 98 Carbon Dioxide 20 L Anion Gap 19.5 H BUN 70 H Creatinine 5.30 H GFR Calculation 12 BUN/Creatinine Ratio 13.00 Glucose 184 H POC Glucose Calculated Osmolality 291.4 Lactic Acid Calcium 7.1 L Magnesium 2.4 Total Bilirubin 0.40 Direct Bilirubin 0.30 H Indirect Bilirubin 0.1 AST 1465 H ALT 2629 H Alkaline Phosphatase 74 B-Natriuretic Peptide 330 H Total Protein 5.4 L Albumin 2.5 L Amylase Lipase 04/13/17 04/13/17 04/13/17 04:51 04:51 07:48 WBC 11.5 RBC 3.06 L Hgb 9.1 L Hct 27.2 L MCV 88.9 MCH 30 MCHC 33.5 RDW 16.0 Plt Count 122 L MPV 12.3 H Neut % (Auto) 89.2 H Lymph % (Auto) 4.1 L [place] % (Auto) 5.3 Eos % (Auto) 0.0 Baso % (Auto) 0.1 Neut # (Auto) 10.3 H Lymph # (Auto) 0.5 L [place] # (Auto) 0.6 Eos # (Auto) 0.0 Baso # (Auto) 0.0 Total Counted 100 Immature Gran % 1.3 Nucleated RBC % 0.0 Immature Gran # 0.15 Segmented Neutrophils 90 H Lymphocytes 6 L Monocytes 4 Nucleated RBCs # 0.00 Platelet Estimate Normal Hypochromasia Slight Microcytosis Slight Kenneth Cells Slight ABG pH ABG pCO2 ABG pO2 ABG HCO3 ABG Total CO2 ABG O2 Saturation ABG Base Excess FiO2 Sodium Potassium Chloride Carbon Dioxide Anion Gap BUN Creatinine GFR Calculation BUN/Creatinine Ratio Glucose POC Glucose 232 H Calculated Osmolality Lactic Acid Calcium Magnesium Total Bilirubin Direct Bilirubin Indirect Bilirubin AST ALT Alkaline Phosphatase B-Natriuretic Peptide Total Protein Albumin Amylase 100 Lipase 126.0 D 04/13/17 09:00 WBC RBC Hgb Hct MCV MCH MCHC RDW Plt Count MPV Neut % (Auto) Lymph % (Auto) [place] % (Auto) Eos % (Auto) Baso % (Auto) Neut # (Auto) Lymph # (Auto) [place] # (Auto) Eos # (Auto) Baso # (Auto) Total Counted Immature Gran % Nucleated RBC % Immature Gran # Segmented Neutrophils Lymphocytes Monocytes Nucleated RBCs # Platelet Estimate Hypochromasia Microcytosis Caitlyn Cells ABG pH ABG pCO2 ABG pO2 ABG HCO3 ABG Total CO2 ABG O2 Saturation ABG Base Excess FiO2 Sodium Potassium Chloride Carbon Dioxide Anion Gap BUN Creatinine GFR Calculation BUN/Creatinine Ratio Glucose POC Glucose Calculated Osmolality Lactic Acid 1.2 Calcium Magnesium Total Bilirubin Direct Bilirubin Indirect Bilirubin AST ALT Alkaline Phosphatase B-Natriuretic Peptide Total Protein Albumin Amylase Lipase
--- NOTE | 2017-04-13 09:08 | General Surgery Consult Note ---
Assessment and Plan - Time spent with patient Time spent with patient: Greater than 30 minutes History of Present Illness Chief complaint: Distended abdomen History of present illness: Mr. Mathew is a 67 year old male Who is about 10 days postop from coronary artery bypass surgery. He had an uneventful postoperative course and was discharged home after 3 or 4 days and was doing well at home until 3 days ago. After he ate dinner he developed nausea and vomiting and diarrhea. Family states that this is similar to episodes that he has had in the past. He was not complaining of abdominal pain. This persisted through the night. His family had wanted him to come to the emergency department and he is stated that he wanted to wait until the morning to see if this episode passed on its own. That morning he was no better and agreed to come to the emergency department and still had no complaints of abdominal pain but continued to have intractable nausea and vomiting. He had a respiratory arrest shortly after arrival to the emergency department and was intubated. Since that time he is been intubated and sedated on the ventilator. He was noted to have increased abdominal distention and quiet bowel sounds and an abdominal CT scan was obtained this morning. This was done without contrast because of his renal failure. This did not show distended bowel. He had a mildly elevated lactic acid level on admission. He has had a previous cholecystectomy. Home Medications Medication Instructions Recorded Confirmed Type Acyclovir [Zovirax Cap/Tab] 400 mg PO 5X DAILY PRN 10/26/15 04/11/17 History Apixaban [Eliquis] 5 mg PO BID 10/26/15 04/11/17 History Aspirin [Ecotrin] 81 mg PO BEDTIME 10/26/15 04/11/17 History Diphenoxylate/Atrop 2.5-0.025 2 tablet PO Q6H PRN 10/26/15 04/11/17 History [Lomotil Tab] Esomeprazole Magnesium [Nexium] 40 mg PO BEDTIME 10/26/15 04/11/17 History Gemfibrozil 600 mg PO BID 10/26/15 04/11/17 History Glimepiride [Amaryl] 4 mg PO BID W/MEALS 10/26/15 04/11/17 History Lidocaine 5% Patch [Lidoderm 5% 1 patch TRANSDERM DAILY PRN 10/26/15 04/11/17 History Patch] Magnesium Chloride [Slow Mag] 64 mg PO BID 10/26/15 04/11/17 History Methocarbamol Tab [Robaxin Tab] 750 mg PO DAILY PRN 10/26/15 04/11/17 History [place]-3 Fatty Acids [Fish Oil] 1,000 mg PO DAILY 10/26/15 04/11/17 History Vitamin E 400 unit PO DAILY 10/26/15 04/11/17 History Zolpidem Tartrate [Ambien Cr] 12.5 mg PO BEDTIME 10/26/15 04/11/17 History diphenhydrAMINE CAP [Benadryl Cap] 25 mg PO Q6H PRN 10/26/15 04/11/17 History metFORMIN [Glucophage] 1,000 mg PO BID W/MEALS 10/26/15 04/11/17 History Carvedilol [Coreg] 6.25 mg PO BID 04/01/17 04/11/17 History Furosemide 20 mg PO DAILY 04/01/17 04/11/17 History Gabapentin 300 mg PO BID 04/01/17 04/11/17 History Multivit-Min/FA/Lutein/Zeaxant 1 tablet PO DAILY 04/01/17 04/11/17 History [Icaps Mv Tablet] Rosuvastatin Calcium [Crestor] 40 mg PO BEDTIME 04/01/17 04/11/17 History Amiodarone Tab [Cordarone Tab] 200 mg PO BID tablet 04/07/17 04/11/17 Rx Docusate Sodium Cap [Colace Cap] 100 mg PO DAILY capsule 04/07/17 04/11/17 Rx Ferrous Sulfate Tab [Feosol 325 mg PO DAILY tablet 04/07/17 04/11/17 Rx Original Tab] Magnesium Hydroxide Susp [Milk of 30 ml PO Q6H PRN 04/07/17 04/11/17 Rx Magnesia] Multivitamin (Ocuvite) [Ocuvite] 1 tablet PO DAILY tablet 04/07/17 04/11/17 Rx sitaGLIPtin [Januvia] 100 mg PO DAILY tablet 04/07/17 04/11/17 Rx Hydrocodone/Acetaminophen [Lortab 1 each PO Q8H PRN 04/11/17 04/11/17 History 10-325 mg Tablet] Insulin Glargine,Hum.rec.anlog 10 units PO QPM 04/11/17 04/11/17 History [Lantus SoloStar] Lisinopril [Lisinopril] 20 mg PO DAILY 04/11/17 04/11/17 History dilTIAZem HCl [Diltiazem ER (24 120 mg PO BID 04/11/17 04/11/17 History hr)] Allergies Allergy/AdvReac Type Severity Reaction Status Date / Time shrimp Allergy Mild ITCHING Verified 04/11/17 06:45 Sulindac [From [place]] Allergy Mild ITCHING Verified 04/11/17 06:45 Medical,Surgical,& Family Hx - Medical History Cardio: History of: Cerebrovascular Disease (A FLUTTER), CAD (5 stents), Hypertension, Cardiovascular Problems (DR LINDQUIST CARDIOVERSION 4-5 YEARS AGO) Neurology: History of: Peripheral Neuropathy (DIABETIC NERVE PAIN) No history of: Seizures HEENT: History of: Eye Problem (READING GLASSES, MACULAR DEGERATION PT GETS SHOTS Q6 WEEKS), Dental Problems (UPPER FULL PLATE) Endocrine: History of: Diabetes Mellitus (NIDDM), Dyslipidemia, Thyroid Disorder Respiratory: History of: COPD, Respiratory Problems (ASBESTOSIS) Genitourinary: History of: Kidney Stones Gastrointestinal: History of: GERD, Hemorrhoids, Liver Problems (ELEVATED ENZYMES IN PAST), Polyps (REMOVED), GI Problems (DIARRHEA) Musculoskeletal: History of: Back/Neck Problems, Degenerative Disk Disease ( FRACTURE 1984 DR JONES PAST HX SPINAL INJECTIONS) Other: History of: Cancer (SKIN RIGHT EAR, SHOULDER) - Surgical History Cardiac Surgeries: Sugical HX of: Femoral-Popliteal Bypass Graft, Cardiac Catheterization (5 STENTS), Cardiac Surgery (Triple Bypass 04/02/17) HEENT Surgeries: Surgical HX of: Eye Surgery (LEFT EYE RETINA SURGERY), Thyroid Surgery (BX), Tonsilectomy & Adenoidectomy Abdominal Surgeries: Surgical HX of: Cholecystectomy, Colonoscopy, EGD Orthopedic Surgeries: Surgical HX of;: Implanted Devices (5 STENTS), Orthopedic Surgery (BILATERAL CARPAL TUNNEL) - Family History Family History: Reports;: Family Anesthesia Reaction (MOTHER ALLEGRY), Family Diabetes (MOTHER), Family Heart Disease (MOTHER FATHER), Family Hypertension ( MOTHER AND FATHER), Family Stroke (FATHER) - Social History Smoking Status: Former smoker Frequency of Alcohol Use: None Type of Drug Use: None ROS unobtainable: due to endotracheal tube Exam - Constitutional Vitals: Period Temp Pulse Resp BP Sys/Guzman Pulse Ox Last 24 Hr 97.0 F-97.5 F 67-91 12-23 79-148/2-88 90-99 General appearance: no acute distress - Head Head exam: Present: normocephalic - Eye Eye exam: Absent: scleral icterus - Neck Neck exam: Present: trachea midline. Absent: thyromegaly - Respiratory Respiratory exam: Present: clear to auscultation bilaterally - Cardiovascular Cardiovascular exam: Present: RRR - GI/Abdominal GI/Abdominal exam: Present: distended, hypoactive bowel sounds, soft. Absent: firm, guarding, mass, tenderness, rebound - Extremities Exam Extremities exam: Absent: edema - Skin Skin exam: Present: normal color Results - Labs CBC & BMP: 04/13/17 04:51 04/13/17 04:51 Lab Results: I have reviewed the past 24 hour labs - Diagnostic Findings Procedure: CT Abdomen and Pelvis: image reviewed by me, report reviewed by me
[2017-04-13] MEDS: MULTIVITAMIN (OCUVITE) TABLET PO SCH (09:36)
[2017-04-13] MEDS: FERROUS SULFATE 325 MG TABLET PO SCH (09:36)
[2017-04-13] MEDS: LANSOPRAZOLE ODT 30 MG TABLET PO SCH (09:36)
[2017-04-13] MEDS: GLIMEPIRIDE 4 MG TABLET PO SCH (09:37)
[2017-04-13] MEDS: AMIODARONE 200 MG TABLET PO SCH (09:37)
[2017-04-13] MEDS: GABAPENTIN 300 MG CAPSULE PO SCH (09:37)
[2017-04-13] MEDS: INSULIN NPH/REGULAR 70/30 100 UNIT/ML SUBCUT SCH ×2 (09:38→18:46)
[2017-04-13] MEDS: methylPREDNISolone SOD SUC 40 MG/1 ML VIAL IV SCH ×2 (09:38→20:14)
[2017-04-13] MEDS ORDERED: SODIUM CHLORIDE 0.9% 500 ML IV ONE (09:47)
[2017-04-13 09:53] LABS: Albumin 2.5 G/DL (3.4-5.0); Bilirubin,Direct 0.3 MG/DL (0.0-0.20); Bilirubin,Indirect 0.1 MG/DL (0.0-1.0); Bilirubin,Total 0.4 MG/DL (0.2-1.0); Total Protein 5.4 G/DL (6.4-8.3)
[2017-04-13] MEDS ORDERED: DOPamine 800 MG/250 ML PREMIX IV SCH (10:00)
[2017-04-13] MEDS: CARVEDILOL 6.25 MG TABLET PO SCH (10:29)
[2017-04-13] MEDS: APIXABAN 5 MG TABLET PO SCH (10:29)
--- NOTE | 2017-04-13 10:34 | EKG Report ---
Stationary ECG Study [facility] Test Date: 04/13/2017 10:34:24 AM Pat Name: SANIYA SPARKS Department: Room: 118 Gender: M Sr Community Manager: ELVI : 1950 Requested by: Rula Guerrero Order Number: [id number] Reading MD: JULIO CESAR KLEIN Intervals [place] Rate: 68 P: 999 NM: 0 QRS: 3 QRSD: 106 T: 92 QT: 417 QTc: 435 Interpretive Statements ATRIAL FIBRILLATION LOW QRS VOLTAGE IN EXTREMITY LEADS POOR R-WAVE PROGRESSION NONSPECIFIC T-WAVE ABNORMALITY Electronically Signed On 04-17-17 15:19:12 CDT by JULIO CESAR KLEIN [id number]
--- NOTE | 2017-04-13 11:06 | Hospitalist Progress Note ---
Assessment and Plan (1) Respiratory failure Status: Acute Assessment and plan: worsening respiratory failure due to bilateral pleural effusion and moderate pericardial effusion, will start him on dialysis today. Current Visit: Yes (2) Pericardial effusion Status: Acute Assessment and plan: echo showed moderate pericardial effusion, will start dialysis Current Visit: Yes (3) Bilateral pleural effusion Status: Acute Assessment and plan: bilateral pleural effusion, currently on vent, cannot tap Current Visit: Yes (4) Diabetes Status: Chronic Assessment and plan: will start tpn, cont insulin low, bs not controlled Current Visit: No Qualifiers: Diabetes mellitus type: type 2 (5) Atrial fibrillation Problem details: Paroxysmal; early postoperative period patient has maintained normal sinus rhythm. Systemic coagulation per consulting typing secretary and cardiothoracic surgery service. Patient is receiving treatment dose subQ Lovenox Status: Chronic Assessment and plan: currently still in atrial fibrillation. Eliquis on hold due to bleeding Current Visit: No (6) S/P CABG (coronary artery bypass graft) Problem details: Three-vessel coronary artery disease; internal mammary graft to the anterior descending coronary artery and saphenous vein graft to the obtuse marginal and right coronary arteries 04/02/2017 (postop day 3). Status : Chronic Assessment and plan: Discussed update with Dr. Larry Current Visit: No (7) Anemia Problem details: Multifactorial including chronic disease and acute surgical blood loss. Patient remains hemodynamically stable. Continue monitoring. There is no indication for immediate blood product transfusion at present. Status: Acute Assessment and plan: eliquis on hold, prn blood transfusion for hgb less than 8, serial hgb Current Visit: No (8) Acute kidney injury Problem details: Related to suspected intravascular volume depletion. IV Lasix dose discontinued earlier today. Recheck BMP in a.m. Status: Acute Assessment and plan: dialysis started today Current Visit: No (9) Ileus Status: Acute Assessment and plan: ct negative for obstruction, lactic acid does not suggest ischemic bowel, probably ileus from illness, tpn and bowel rest Current Visit: Yes (10) Hypotension Status: Acute Assessment and plan: stop all fluids, may need dopamine to keep systolic greater than 80 Current Visit: Yes (11) UGI bleed Status: Acute Assessment and plan: protonix IV 40 mg po bid, stat hgb, prn blood order, stat hgb, was on eliquis last dose last night. Needs dvt prop Current Visit: Yes Hospitalist: Subjective Interval history: Abdomen distended, no obstruction on ct noted. Surgery consulted. CT shows large pericardial effusion. Will call Dr. Alex rodrigez. I have contacted Dr. Mendieta CROP PICKER. CT shows large bilateral pleural effusion but spoke with Dr. Mendieta and he feels it is localized and moderate. Dr. Rodrigues III has now placed on dialysis cath Exam - Constitutional Vitals: Period Temp Pulse Resp BP Sys/Guzman Pulse Ox Last 24 Hr 97.0 F-97.5 F 67-91 12-23 79-148/55-88 90-99 Exam: Heart Rate-[IRR] Lungs-[very diminished] GI-[diminished bowel sounds, distended and tight Ext-[2+ edema, anasarca] Neuro sedated and intubated psych unable to assess while on vent General [no acute distress] Results - Labs CBC & BMP: 04/13/17 04:51 04/13/17 10:31 Lab Results: I have reviewed the past 24 hour labs Labs: blood cx and sputum cx negative - Diagnostic Findings Procedure: CT Abdomen and Pelvis: report reviewed by me (large left and moderate right pleural effusion ), CT - chest: report reviewed by me (large pericardial effusion )
[2017-04-13 11:19] LABS: Calcium 6.8 MG/DL (8.5-10.1); Osmolality,Calculated 287.7 MOS/KG (273-304); Potassium 4.6 MMOL/L (3.5-5.1)
--- NOTE | 2017-04-13 11:57 | ECHO Report ---
MathewuLis menon Exam Date: 04/13/2017 11:15 Referring Physician: Technologist: Jonelle Sunshine Age: 67 Ht (in): 69 Wt (lb): 190 Gender: M Exam Location: [facility] Echo Indications: S/P CABG, pericardial effusion, Focus study BP: / HR: Rhythm: Sinus Technical Quality: IMPRESSIONS Focused study: 1. 3-4+ left atrial enlargement 2. Normal LV systolic function with ejection fraction is will be 65% without obvious wall motion normality 3. Moderate localized pericardial effusion (inferolateral); should not cause 10 benign. MEASUREMENTS (Male / Female) Normal Values FINDINGS Left Ventricle Right Ventricle Right Atrium Left Atrium Mitral Valve Aortic Valve Tricuspid Valve Pulmonic Valve Pericardium Aorta Severino Mendieta (Electronically Signed) Final Date: 13 April 2017 11:56
--- NOTE | 2017-04-13 12:57 | Operative Note ---
Date of procedure: 04/13/17 Pre-op diagnosis: Acute renal failure Post-op diagnosis: same Procedure: Right internal jugular vein dialysis catheter placement under ultrasound guidance Findings and technique: After informed consent was obtained patient was brought to room and placed in supine position. After the patient's neck and chest were prepped and draped in usual sterile fashion with the patient in Trendelenburg position and the ultrasound probe was sterilely placed over the lower neck in the internal jugular vein easily identified. Local anesthesia was infiltrated and this was easily accessed with a single stick and a guidewire advanced without resistance. A stab incision was made at the guidewire puncture site and a dilator passed. The catheter was introduced and the guidewire removed. Catheter was sutured into place and easily accessed aspirated and flushed. Chest x-ray was pending. Anesthesia: local Surgeon / Physician: Chris Gifford III. Estimated blood loss: minimal Specimens: none sent Condition: stable Disposition: no change Results - Labs CBC & BMP: 04/13/17 04:51 04/13/17 10:31 Discharge Plan - Discharge Medications No Action diphenhydrAMINE CAP [Benadryl Cap] 25 mg PO Q6H PRN PRN Reason: Itching Methocarbamol Tab [Robaxin Tab] 750 mg PO DAILY PRN PRN Reason: Muscle Spasm Lidocaine 5% Patch [Lidoderm 5% Patch] 1 patch TRANSDERM DAILY PRN PRN Reason: Pain Diphenoxylate/Atrop 2.5-0.025 [Lomotil Tab] 2 tablet PO Q6H PRN PRN Reason: Diarrhea Acyclovir [Zovirax Cap/Tab] 400 mg PO 5X DAILY PRN PRN Reason: FEVER BLISTERS Tow-3 Fatty Acids [Fish Oil] 1,000 mg PO DAILY Apixaban [Eliquis] 5 mg PO BID Zolpidem Tartrate [Ambien Cr] 12.5 mg PO BEDTIME Magnesium Chloride [Slow Mag] 64 mg PO BID Aspirin [Ecotrin] 81 mg PO BEDTIME Vitamin E 400 unit PO DAILY Glimepiride [Amaryl] 4 mg PO BID W/MEALS Gemfibrozil 600 mg PO BID metFORMIN [Glucophage] 1,000 mg PO BID W/MEALS Esomeprazole Magnesium [Nexium] 40 mg PO BEDTIME Multivit-Min/FA/Lutein/Zeaxant [Icaps Mv Tablet] 1 tablet PO DAILY Furosemide 20 mg PO DAILY Gabapentin 300 mg PO BID dilTIAZem HCl [Diltiazem ER (24 hr)] 120 mg PO BID Lisinopril [Lisinopril] 20 mg PO DAILY Hydrocodone/Acetaminophen [Lortab 10-325 mg Tablet] 1 each PO Q8H PRN PRN Reason: Pain Rosuvastatin Calcium [Crestor] 40 mg PO BEDTIME Carvedilol [Coreg] 6.25 mg PO BID Amiodarone Tab [Cordarone Tab] 200 mg PO BID tablet Docusate Sodium Cap [Colace Cap] 100 mg PO DAILY capsule Ferrous Sulfate Tab [Feosol Original Tab] 325 mg PO DAILY tablet Magnesium Hydroxide Susp [Milk of Magnesia] 30 ml PO Q6H PRN PRN Reason: Constipation Multivitamin (Ocuvite) [Ocuvite] 1 tablet PO DAILY tablet sitaGLIPtin [Januvia] 100 mg PO DAILY tablet Insulin Glargine,Hum.rec.anlog [Lantus SoloStar] 10 units PO QPM - Follow Up or Referral - Forms/Instructions
--- NOTE | 2017-04-13 13:05 | XRay Report ---
XR chest 1V portable Indication: Line placement Comparison: Chest x-ray dated April 13, 2017 Technique: Single frontal view of the chest. Findings: Endotracheal tube stable in positioning. Right-sided internal jugular central venous catheter tip projects over the SVC. Continued cardiomegaly status post sternotomy. Mildly improved diffuse haziness throughout the bilateral lungs suggesting improved pulmonary edema or pneumonia. Small layering pleural fluid again suggested, left greater than right. Visualized osseous and surrounding soft tissue structures appear grossly unchanged. IMPRESSION: As above. PROCEDURE INTERPRETED AT [facility] DEPARTMENT OF RADIOLOGY Final Report Signed by: Dr Jose Xiao
--- NOTE | 2017-04-13 14:29 | Nephrology Progress Note ---
Nephrology - PN: Subj Interval history: The patient is now status post dialysis catheter placement. We will plan for hemodialysis later this afternoon we will dialyze for approximately 2 hours. Also use 25% albumin as needed. He remains ventilated. Exam (PN)-Nephrology - Vital Signs Vital signs: Period Temp Pulse Resp BP Sys/Guzman Pulse Ox Last 24 Hr 97.0 F-97.5 F 67-91 10-23 79-148/55-88 90-99 - General Appearance General appearance: well-developed, well-nourished, intubated EENT: ATNC Neck: supple Respiratory: clear Cardiology: regular rate, regular rhythm Gastrointestinal: normoactive bowel sounds - Lab 04/13/17 13:22 04/13/17 10:31 Most recent lab results ABG pH 7.389 (7.35-7.45) 04/13/17 03:00 ABG pCO2 33.4 MM HG (35-48) L 04/13/17 03:00 ABG pO2 68.5 MM HG (80-95) L 04/13/17 03:00 ABG HCO3 20.8 MMOL/L (20-26) 04/13/17 03:00 ABG O2 Saturation 92.4 % (95-100) L 04/13/17 03:00 Calcium 6.8 MG/DL (8.5-10.1) L 04/13/17 10:31 Magnesium 2.4 MG/DL (1.8-2.4) 04/13/17 04:51 Assessment and Plan (1) Diabetes Status: Chronic Current Visit: No Qualifiers: Diabetes mellitus type: type 2 (2) Hypertension Problem details: Well-controlled postoperatively; continue current treatment with Coreg, diltiazem, and Lasix. Status: Chronic Current Visit: No Qualifiers: Hypertension type: essential hypertension Qualified Code(s): I10 - Essential (primary) hypertension (3) S/P CABG (coronary artery bypass graft) Problem details: Three-vessel coronary artery disease; internal mammary graft to the anterior descending coronary artery and saphenous vein graft to the obtuse marginal and right coronary arteries 04/02/2017 (postop day 3). Status : Chronic Current Visit: No (4) Anemia Problem details: Multifactorial including chronic disease and acute surgical blood loss. Patient remains hemodynamically stable. Continue monitoring. There is no indication for immediate blood product transfusion at present. Status: Acute Current Visit: No (5) Acute kidney injury Problem details: Related to suspected intravascular volume depletion. IV Lasix dose discontinued earlier today. Recheck BMP in a.m. Status: Acute Assessment and plan: Acute kidney injury. More likely due to ATN. Patient with evidence of pericardial effusion as well. Given the other medical conditions will go ahead and initiate for dialysis support. Dialysis catheter has been placed. Current Visit: No (6) Hyperkalemia Status: Resolved Assessment and plan: Acute phenomena more likely due to metabolic acidosis. We will repeat potassium this afternoon. We have given 1 amp sodium bicarb. Have adjust IV fluids with bicarbonate. Also given an amp of calcium gluconate. Moreover, will give IV Lasix 1 dose. Strict I's and O's in this patient. Current Visit: Yes (7) Respiratory failure Status: Acute Current Visit: Yes
--- NOTE | 2017-04-13 16:16 | Dialysis Note ---
Dialysis Note - Dialysis Note Patient seen on dialysis tolerating the procedure. Blood pressure 130/72. Strive to remove 2-1/2 or 3 L of fluid.
[2017-04-13] MEDS ORDERED: HEPARIN 10,000 UNIT/10 ML VIAL IV SCH (16:30)
--- NOTE | 2017-04-13 16:39 | Physician Query Form ---
CLICK EDIT DOCUMENT TO SELECT QUERY ANSWER --> OK --> SIGN Ary Perkins RN Clinical Head Of Design W) [phone] (f) [phone] [email or web address]: Make your selection(s) from the choices in EACH section by typing an "x" and enter comments in the comment section. Please use your independent medical judgment in providing your response. This request does not imply that any particular answer is desired or expected. CLINICAL INDICATORS: (Providers should not edit this section) Based on documentation of "Chest x-ray was significant for congestive heart failure decompensation", [id number], Echo showed EF of 55%. Pt. treated with IV Lasix. Please provide further specificity regarding CHF. ACUITY: ( ) Acute ( ) Chronic ( ) Acute on Chronic ( ) Clinicallly unable to determine TYPE: ( ) Systolic (HFrEF - heart failure with reduced systolic function/EF) ( ) Diastolic (HFpEF - heart failure with preserved systolic function/EF) ( ) Combined Systolic/Diastolic ( ) Other, please specify: ( ) Clinically unable to determine (x ) The patient does NOT have CHF COMMENTS: PLEASE ALSO DOCUMENT RESPONSE IN PROGRESS NOTES AND/OR DISCHARGE SUMMARY Use of terms such as suspected, likely, or probable (associated with a specific diagnosis that is being evaluated, monitored, or treated as if it exists) are acceptable and can be restated in the discharge summary if not ruled out. MTDD
[2017-04-13] MEDS ORDERED: PHENYLEPHRINE DRIP 40 MG/250 ML PREMIX IV ONE (16:59)
[2017-04-13] MEDS ORDERED: MULTIVITAMIN IV SCH (17:00)
[2017-04-13] MEDS ORDERED: DEXTROSE 10% 1,000 ML IV PRN (17:00)
[2017-04-13] MEDS ORDERED: ELECTROLYTE IV SCH (17:00)
[2017-04-13] MEDS ORDERED: PHENYLEPHRINE DRIP 40 MG/250 ML PREMIX IV SCH (17:00)
[2017-04-13] MEDS ORDERED: TRACE ELEMENTS IV SCH (17:00)
[2017-04-13] MEDS ORDERED: [UNRECOGNIZED DRUG - OTHER] IV SCH (17:00)
[2017-04-13 17:20] LABS: ABG Base Excess -2.9 MMOL/L (-2.5-2.5); ABG HCO3 21.9 MMOL/L (20-26); ABG Oxygen Saturation 89.7 % (95-100); ABG PCO2 33.1 MM HG (35-48); ABG PH 7.411 (7.35-7.45); ABG PO2 59.4 MM HG (80-95); Allen Test Positive; Pt O2 Delivery Device Ventilator
[2017-04-13] MEDS: PANTOPRAZOLE 40 MG VIAL IV SCH ×2 (18:45→20:11)
[2017-04-13] MEDS: cefTRIAXone 1,000 MG in SODIUM CHLORIDE 0.9% 100 ML IV SCH (18:47)
[2017-04-13 20:04] LABS: Hepatitis B Core IgM Quant 0.14 Index; Hepatitis B Core IgM Result Negative (Negative); Hepatitis B Surface Ag Quant < 0.10 Index; Hepatitis B Surface Ag Result Negative (Negative); Hepatitis C Virus Ab Result Negative (Negative)
[2017-04-13] MEDS: SODIUM BICARBONATE 50 MEQ/50 ML SYRINGE IV SCH (20:07)
--- NOTE | 2017-04-13 20:22 | Event Note ---
Patient seen. History reviewed. Full consult to follow tomorrow. 67-year-old male with recent CABG is admitted with respiratory failure. He was noted to have bright red blood from nasogastric tube suction onset today. No bowel movements have been noted. Hemodynamics are normal currently. He has been on Eliquis with last dose last night. Patient is alert and appears comfortable on ventilator. Blood pressure 127/70, heart rate 67. This does not appear to be active upper GI bleeding process currently. Would not recommend EGD at this point as would be unlikely benefit therapeutically. Continue to hold Eliquis and would recommend at least 48 hours off this preferably before proceeding with EGD. Continue IV PPI.
[2017-04-13] MEDS ORDERED: CARVEDILOL 3.125 MG TABLET PO SCH (21:00)
[2017-04-13] MEDS ORDERED: APIXABAN 2.5 MG TABLET PO SCH (21:00)
[2017-04-13 21:33] LABS: ABG Base Excess -3.3 MMOL/L (-2.5-2.5); ABG HCO3 19.9 MMOL/L (20-26); ABG Oxygen Saturation 93.7 % (95-100); ABG PCO2 29.1 MM HG (35-48); ABG PH 7.452 (7.35-7.45); ABG PO2 71.4 MM HG (80-95); ABG TCO2 20.8 MMOL/L (23-27); Allen Test Positive; Pt O2 Delivery Device Ventilator
[2017-04-14] MEDS: ALBUTEROL/IPRATROPIUM 3 ML NEB RESP TX SCH ×4 (00:27→19:31)
[2017-04-14 03:38] LABS: ABG Base Excess -3.6 MMOL/L (-2.5-2.5); ABG HCO3 19.4 MMOL/L (20-26); ABG Oxygen Saturation 93.2 % (95-100); ABG PCO2 27.7 MM HG (35-48); ABG PH 7.463 (7.35-7.45); ABG PO2 68.3 MM HG (80-95); ABG TCO2 20.2 MMOL/L (23-27); Allen Test Positive; Pt O2 Delivery Device Ventilator
[2017-04-14] MEDS: SODIUM BICARBONATE 50 MEQ/50 ML SYRINGE IV SCH (03:38)
[2017-04-14] MEDS: INSULIN REGULAR 100 UNIT/ML SUBCUT SCH ×4 (03:38→18:32)
[2017-04-14 04:08] LABS: Basophils % 0.1 % (0.0-0.8); Hematocrit 24.9 VOL% (42.0-52.0); Hemoglobin 8.6 GM/DL (14.0-18.0); Immature Granulocytes % 1.2 %; Immature Granulocytes Absolute 0.18 #; Lymphocytes # 0.4 10*3/uL (1.4-4.0); Lymphocytes % 2.5 % (21.2-54.2); Mean Corpuscular HGB Conc 34.5 GM/DL (32-36); Mean Corpuscular Hemoglobin 30 PG (27-34); Mean Corpuscular Volume 85.9 FL (87-102); Mean Platelet Volume 12.1 FL (9.6-12.0); Monocytes # 0.8 10*3/uL (0.11-0.8); Monocytes % 5.4 % (1.7-12.7); Neutrophils # 13.3 10*3/uL (1.4-7.4); Neutrophils % 90.8 % (38.7-73.9); Platelet Count 150 T/CUMM (130-400); Red Cell Distribution Width 15.9 % (9.3-17.3); White Blood Count 14.7 T/CUMM (4-12)
[2017-04-14 04:22] LABS: INR 1.3
[2017-04-14 04:38] LABS: Calcium 7.3 MG/DL (8.5-10.1); Magnesium 2.4 MG/DL (1.8-2.4); Osmolality,Calculated 298.1 MOS/KG (273-304); Potassium 4.4 MMOL/L (3.5-5.1)
[2017-04-14 04:41] LABS: Phosphorous 7.5 MG/DL (2.5-4.9); Prealbumin 16.9 MG/DL (20-40)
[2017-04-14 04:51] LABS: Albumin 2.2 G/DL (3.4-5.0); Bilirubin,Direct 0.3 MG/DL (0.0-0.20); Bilirubin,Indirect 0.2 MG/DL (0.0-1.0); Bilirubin,Total 0.5 MG/DL (0.2-1.0); Total Protein 4.8 G/DL (6.4-8.3)
[2017-04-14 04:58] LABS: Lymphocytes 3 % (20-55); Platelet Estimate Adequate; Segmented Neutrophils 94 % (50-85); Total Cells Counted 100
[2017-04-14 04:59] LABS: Burr Cells Slight; Hypochromasia Slight
[2017-04-14 05:00] LABS: Microcytosis Slight
[2017-04-14] MEDS: PROPOFOL 1,000 MG/100 ML BOTTLE IV SCH ×3 (05:58→21:19)
[2017-04-14 06:24] LABS: Hepatitis A Ab IgM Quant 1.13 Index; Hepatitis A Ab IgM Result Equivocal (Negative)
--- NOTE | 2017-04-14 07:01 | General Surgery Progress Note ---
Assessment and Plan - Time spent with patient Time spent with patient: Less than 30 minutes (1) Ileus Status: Acute Assessment and plan: The patient is awake and alert on the ventilator this morning. He denies abdominal pain. His abdomen is mildly distended but is nontender. He denies any tenderness or pain with palpation. I do not see evidence of an acute surgical process. I think ischemic bowel is very unlikely. Current Visit: Yes Subjective Patient reports: Present: feels better. Absent: still having pain, fever Exam - Constitutional Vitals: Period Temp Pulse Resp BP Sys/Guzman Pulse Ox Last 24 Hr 97.1 F-98.0 F 69-105 10-26 79-148/53-92 90-99 General appearance: no acute distress - Eye Eye exam: Absent: scleral icterus - Respiratory Respiratory exam: Absent: accessory muscle use - GI/Abdominal GI/Abdominal exam: Present: distended, soft. Absent: tenderness, rebound - Neurological Exam Neurological exam: Present: alert, oriented X3 Speech: Present: normal - Skin Skin exam: Present: normal color Results - Labs CBC & BMP: 04/14/17 03:38 04/14/17 03:38 Lab Results: I have reviewed the past 24 hour labs
[2017-04-14] MEDS: DORNASE ALFA 2.5 MG/2.5 ML VIAL RESP TX SCH ×2 (07:13→19:44)
--- NOTE | 2017-04-14 07:31 | Pulmonology Progress Note ---
Pulmonary - PN: Subj Interval history: This 67-year-old white male had coronary bypass surgery a couple weeks back. Came back in with respiratory failure. Has small pleural effusions more on the left than the right. He has COPD. His sputum is thick. He was given bronchodilators in the emergency room but they were not continued back here. Will add bronchodilators and Pulmozyme. Also both with steroids. Broaden antibiotics. Sputum culture. His PO2 is 177. We can reduce FiO2 and start weaning trials. 04/13/2017 patient has increased abdominal girth and his abdomen is tight. Chest x-ray looks a little better. Creatinine has risen to 5.3. I do not think he is ready for extubation yet but will start weaning trials. Needs abdomen evaluated further. Abdominal film is nonspecific. Concerned about bowel ischemia. 04/14/2017 patient had dialysis yesterday. His abdomen is less tight. His acidosis has been corrected. He will need further dialysis however. X-ray does look wet. Not able to do any weaning trials as yet. He does have COPD. Exam (Progress Note) - Constitutional Vitals: Period Temp Pulse Resp BP Sys/Guzman Pulse Ox Last 24 Hr 97.1 F-98.0 F 69-105 10-26 79-148/53-92 90-99 Exam: Patient is alert, fairly calm, responsive. Vital signs normal. Pupils react to light. Orotracheal tube in place. Neck is supple. Chest reveals prolonged expiratory phase and a few rhonchi. Heart normal rate and rhythm no murmurs. Abdomen a little softer than yesterday, and he has abdominal wall edema. Extremities no clubbing or cyanosis. he does have a 2+ edema. Results - Labs CBC & BMP: 04/14/17 03:38 04/14/17 03:38 Lab Results: I have reviewed the past 24 hour labs - Diagnostic Findings Procedure: Chest x-ray: image reviewed by me (Cardiomegaly with left greater than right pleural effusions. ET tube good position.) Assessment and Plan (1) Diabetes Status: Chronic Assessment and plan: Sliding scale insulin. Patient was on metformin prior to admission and has some renal insufficiency at present. May be an element of lactic acidosis related to that. We will hold the metformin. 04/12/2017 acidosis corrected. Glucoses running in the 300s. Will add some Humulin 70/30 in addition to sliding scale. 04/13/2017 continuing sliding scale. Glucoses in 200s. 04/14/2017 blood sugars still a little on the high side. Defer to hospitalist. Current Visit: No Qualifiers: Diabetes mellitus type: type 2 (2) S/P CABG (coronary artery bypass graft) Problem details: Three-vessel coronary artery disease; internal mammary graft to the anterior descending coronary artery and saphenous vein graft to the obtuse marginal and right coronary arteries 04/02/2017 (postop day 3). Status : Chronic Assessment and plan: No evidence of any infection at the surgical wound site. He does have small pleural effusions left greater than right that may be related to that. Does not appear to be in alice failure. 04/12/2017 has small pleural effusions. Wounds appear to be intact. LV function appears intact. 04/13/2017 watching pleural effusions. May need drainage of the one on left if it increases anymore. 04/14/2017 does not appear to be in alice failure and no evidence of myocardial infarction Current Visit: No (3) Acute kidney injury Problem details: Related to suspected intravascular volume depletion. IV Lasix dose discontinued earlier today. Recheck BMP in a.m. Status: Acute Assessment and plan: Mild elevation of creatinine and potassium. Metformin being held. 04/12/2017 creatinine up to 4.2. May need nephrology to see her. 04/13/2017 creatinine up to 5.3. Nephrology seeing. Urine output is quite low 04/14/2017 had dialysis yesterday and will be dialyzed today. We need to take off a good bit of fluid in order to wean him. He has anasarca. Current Visit: No (4) Respiratory failure Status: Acute Assessment and plan: We will adjust ventilator and wean as tolerated 04/12/2017 PO2 much improved. Start weaning trials. He does have COPD and were added bronchodilators and steroids. 04/13/2017 ABGs improved. Do not think he is ready to be extubated until abdominal process is defined and improved. 04/14/2017 we will try to get his FiO2 down to 60% by increasing PEEP to 6. His need PO2 in the 60s. Can adjust as needed. Hopefully this will improve with offloading more fluid. Current Visit: Yes
--- NOTE | 2017-04-14 07:51 | XRay Report ---
History short of breath Comparison 04/13/2017 ET tube tip is at T4. Cardiac silhouette is enlarged. Other support devices grossly unchanged there remains a diffuse bilateral hazy pulmonary opacities similar on the prior study. There has been worsening of more focal consolidation and effusion overlying the lower half the left chest during left diaphragm. Tiny right effusion suspected Impression: 1. No significant change in diffuse pulmonary edema with mild worsening of more focal consolidation and effusion at the left lung base PROCEDURE INTERPRETED AT [facility] DEPARTMENT OF RADIOLOGY Final Report Signed by: Dr. Taryn Daniel
[2017-04-14] MEDS: PANTOPRAZOLE 40 MG VIAL IV SCH ×2 (08:10→20:26)
[2017-04-14] MEDS: methylPREDNISolone SOD SUC 40 MG/1 ML VIAL IV SCH ×2 (08:10→20:24)
[2017-04-14] MEDS: INSULIN NPH/REGULAR 70/30 100 UNIT/ML SUBCUT SCH (08:11)
[2017-04-14] MEDS: LEVOFLOXACIN INJ 250 MG in PREMIX 1 EACH IV SCH (08:11)
[2017-04-14 08:33] LABS: ABG Base Excess -2.9 MMOL/L (-2.5-2.5); ABG HCO3 21.9 MMOL/L (20-26); ABG Oxygen Saturation 93.1 % (95-100); ABG PCO2 29.8 MM HG (35-48); ABG PH 7.444 (7.35-7.45); ABG PO2 70.7 MM HG (80-95); ABG TCO2 18.8 MMOL/L (23-27); Allen Test Positive; Pt O2 Delivery Device Ventilator
--- NOTE | 2017-04-14 09:28 | Cardiology Progress Note ---
Assessment and Plan (1) Hypotension Status: Acute Assessment and plan: April 13, 2017: 1. Still having some intermittent hypotension, so I am changing dobutamine to low-dose dopamine 3 mcg/kg/min, and discontinuing Coreg and diltiazem for now. 2. He is back in atrial fibrillation (apparently went into sinus for a while after cardioversion); discontinue amiodarone. 3. Creatinine still rising with severe oliguria. We will give normal saline bolus given his borderline normal LV function. 4. Surgery is seeing for abdominal distention and intractable nausea and abdominal pain several days prior to admission per 5. Moderate anemia seems to be stable with no obvious source of bleeding. 6. Status post CABG on previous/recent admission. April 14, 2017: 1. He is again having some modest hypotension since off pressors. Try low- dose dopamine 3 mcg/kg/min, and could slightly up titrated if needed. 2. Acute renal failure with resolved hyperkalemia; still with severe oliguria status post hemodialysis yesterday. 3. Apparent ileus with some abdominal distention; intractable nausea and abdominal pain several days prior to admission was noted. 4. Status post recent CABG 5. Moderate anemia with slight drop off in hematocrit; continue to monitor. 6. Echocardiogram April 13, 2017 shows ejection fraction 65% with moderate localized inferolateral pericardial effusion (should not cause tamponade physiology) Current Visit: Yes (2) Renal failure Status: Acute Current Visit: Yes (3) Anemia Problem details: Multifactorial including chronic disease and acute surgical blood loss. Patient remains hemodynamically stable. Continue monitoring. There is no indication for immediate blood product transfusion at present. Status: Acute Current Visit: No (4) Atrial fibrillation Problem details: Paroxysmal; early postoperative period patient has maintained normal sinus rhythm. Systemic coagulation per consulting entry specialist and cardiothoracic surgery service. Patient is receiving treatment dose subQ Lovenox Status: Chronic Current Visit: No (5) Coronary artery disease Status: Chronic Current Visit: No Qualifiers: Coronary Disease-Associated Artery/Lesion type: [place] artery [place] vs. transplanted heart: [place] heart Associated angina: without angina Qualified Code(s): I25.10 - Atherosclerotic heart disease of [place] coronary artery without angina pectoris (6) S/P CABG (coronary artery bypass graft) Problem details: Three-vessel coronary artery disease; internal mammary graft to the anterior descending coronary artery and saphenous vein graft to the obtuse marginal and right coronary arteries 04/02/2017 (postop day 3). Status : Chronic Current Visit: No Cardiology - PN: Subj Interval history: E Mr. new is not changed much to since yesterday. He is now off pressors but his blood pressures dropping a bit in the 90 systolic range. He still has minimal urine output. He got dialysis yesterday. Nursing staff says he follows commands well when he is off sedation. He has not had any Exam (Progress Note) - Constitutional Vitals: Period Temp Pulse Resp BP Sys/Guzman Pulse Ox Last 24 Hr 97.1 F-98.0 F 69-105 10-26 79-148/58-92 90-99 General appearance: normal weight, no acute distress, other (Sedated intubated) - Head Head exam: Present: normal inspection, normocephalic, atraumatic - Neck Neck exam: Present: normal inspection - Respiratory Respiratory exam: Absent: stridor, wheezes - Cardiovascular Cardiovascular exam: Present: irregular rhythm. Absent: diastolic murmur, rubs - GI/Abdominal GI/Abdominal exam: Present: distended. Absent: tenderness - Extremities Exam Extremities exam: Absent: edema Result/EKG - Labs CBC & BMP: 04/14/17 03:38 04/14/17 03:38 Labs: Laboratory Results - last 24 hr 04/11/17 04/13/17 04/13/17 07:42 04:47 09:00 WBC RBC Hgb Hct MCV MCH MCHC RDW Plt Count MPV Neut % (Auto) Lymph % (Auto) [place] % (Auto) Eos % (Auto) Baso % (Auto) Neut # (Auto) Lymph # (Auto) [place] # (Auto) Eos # (Auto) Baso # (Auto) Total Counted Immature Gran % Nucleated RBC % Immature Gran # Segmented Neutrophils Lymphocytes Monocytes Nucleated RBCs # Platelet Estimate Hypochromasia Microcytosis [place] Cells INR PT Patient/Control Mix ABG pH ABG pCO2 ABG pO2 ABG HCO3 ABG Total CO2 ABG O2 Saturation ABG Base Excess FiO2 Sodium Potassium Chloride Carbon Dioxide Anion Gap BUN Creatinine GFR Calculation BUN/Creatinine Ratio Glucose POC Glucose 419 H Calculated Osmolality Lactic Acid 1.2 Calcium Phosphorus Magnesium Total Bilirubin 0.40 Direct Bilirubin 0.30 H Indirect Bilirubin 0.1 AST 1465 H ALT 2629 H Alkaline Phosphatase 74 Ammonia Total Protein 5.4 L Albumin 2.5 L Prealbumin Hepatitis A IgM Ab Hep Bs Antigen Hep B Core IgM Ab Hepatitis C Antibody Blood Type Antibody Screen Crossmatch Blood Bank Comment 04/13/17 04/13/17 04/13/17 10:31 12:10 13:22 WBC RBC Hgb 8.4 L Hct MCV MCH MCHC RDW Plt Count MPV Neut % (Auto) Lymph % (Auto) [place] % (Auto) Eos % (Auto) Baso % (Auto) Neut # (Auto) Lymph # (Auto) [place] # (Auto) Eos # (Auto) Baso # (Auto) Total Counted Immature Gran % Nucleated RBC % Immature Gran # Segmented Neutrophils Lymphocytes Monocytes Nucleated RBCs # Platelet Estimate Hypochromasia Microcytosis [place] Cells INR PT Patient/Control Mix ABG pH ABG pCO2 ABG pO2 ABG HCO3 ABG Total CO2 ABG O2 Saturation ABG Base Excess FiO2 Sodium 131 L Potassium 4.6 Chloride 98 Carbon Dioxide 18 L Anion Gap 19.6 H BUN 74 H Creatinine 5.60 H GFR Calculation 11 BUN/Creatinine Ratio 13.00 Glucose 171 H POC Glucose 205 H Calculated Osmolality 287.7 Lactic Acid Calcium 6.8 L Phosphorus Magnesium Total Bilirubin Direct Bilirubin Indirect Bilirubin AST ALT Alkaline Phosphatase Ammonia Total Protein Albumin Prealbumin Hepatitis A IgM Ab Hep Bs Antigen Hep B Core IgM Ab Hepatitis C Antibody Blood Type Antibody Screen [place] Blood Bank Comment 04/13/17 04/13/17 04/13/17 17:15 18:32 19:38 WBC RBC Hgb Hct MCV MCH MCHC RDW Plt Count MPV Neut % (Auto) Lymph % (Auto) [place] % (Auto) Eos % (Auto) Baso % (Auto) Neut # (Auto) Lymph # (Auto) [place] # (Auto) Eos # (Auto) Baso # (Auto) Total Counted Immature Gran % Nucleated RBC % Immature Gran # Segmented Neutrophils Lymphocytes Monocytes Nucleated RBCs # Platelet Estimate Hypochromasia Microcytosis [place] Cells INR PT Patient/Control Mix ABG pH 7.411 ABG pCO2 33.1 L ABG pO2 59.4 L ABG HCO3 21.9 ABG Total CO2 19.0 L ABG O2 Saturation 89.7 L ABG Base Excess -2.9 L FiO2 70.00 Sodium Potassium Chloride Carbon Dioxide Anion Gap BUN Creatinine GFR Calculation BUN/Creatinine Ratio Glucose POC Glucose 222 H Calculated Osmolality Lactic Acid Calcium Phosphorus Magnesium Total Bilirubin Direct Bilirubin Indirect Bilirubin AST ALT Alkaline Phosphatase Ammonia 13 Total Protein Albumin Prealbumin Hepatitis A IgM Ab Hep Bs Antigen Hep B Core IgM Ab Hepatitis C Antibody Blood Type Antibody Screen Crossmatch Blood Bank Comment 04/13/17 04/13/17 04/13/17 19:40 20:00 21:25 WBC RBC Hgb Hct MCV MCH MCHC RDW Plt Count MPV Neut % (Auto) Lymph % (Auto) [place] % (Auto) Eos % (Auto) Baso % (Auto) Neut # (Auto) Lymph # (Auto) [place] # (Auto) Eos # (Auto) Baso # (Auto) Total Counted Immature Gran % Nucleated RBC % Immature Gran # Segmented Neutrophils Lymphocytes Monocytes Nucleated RBCs # Platelet Estimate Hypochromasia Microcytosis [place] Cells INR PT Patient/Control Mix ABG pH 7.452 H ABG pCO2 29.1 L ABG pO2 71.4 L ABG HCO3 19.9 L ABG Total CO2 20.8 L ABG O2 Saturation 93.7 L ABG Base Excess -3.3 L FiO2 70.00 Sodium Potassium Chloride Carbon Dioxide Anion Gap BUN Creatinine GFR Calculation BUN/Creatinine Ratio Glucose POC Glucose 247 H Calculated Osmolality Lactic Acid Calcium Phosphorus Magnesium Total Bilirubin Direct Bilirubin Indirect Bilirubin AST ALT Alkaline Phosphatase Ammonia Total Protein Albumin Prealbumin Hepatitis A IgM Ab Hep Bs Antigen Hep B Core IgM Ab Hepatitis C Antibody Blood Type A POSITIVE Antibody Screen Negative Crossmatch See Detail Blood Bank Comment 04/13/17 04/13/17 04/13/17 21:35 23:05 Unknown WBC RBC Hgb 8.8 L Hct MCV MCH MCHC RDW Plt Count MPV Neut % (Auto) Lymph % (Auto) [place] % (Auto) Eos % (Auto) Baso % (Auto) Neut # (Auto) Lymph # (Auto) [place] # (Auto) Eos # (Auto) Baso # (Auto) Total Counted Immature Gran % Nucleated RBC % Immature Gran # Segmented Neutrophils Lymphocytes Monocytes Nucleated RBCs # Platelet Estimate Hypochromasia Microcytosis [place] Cells INR PT Patient/Control Mix ABG pH ABG pCO2 ABG pO2 ABG HCO3 ABG Total CO2 ABG O2 Saturation ABG Base Excess FiO2 Sodium Potassium Chloride Carbon Dioxide Anion Gap BUN Creatinine GFR Calculation BUN/Creatinine Ratio Glucose POC Glucose 271 H Calculated Osmolality Lactic Acid Calcium Phosphorus Magnesium Total Bilirubin Direct Bilirubin Indirect Bilirubin AST ALT Alkaline Phosphatase Ammonia Total Protein Albumin Prealbumin Hepatitis A IgM Ab Equivocal Hep Bs Antigen Negative Hep B Core IgM Ab Negative Hepatitis C Antibody Negative Blood Type Antibody Screen Crossmatch Blood Bank Comment 04/13/17 04/14/17 04/14/17 Unknown 03:30 03:30 WBC RBC Hgb Hct MCV MCH MCHC RDW Plt Count MPV Neut % (Auto) Lymph % (Auto) [place] % (Auto) Eos % (Auto) Baso % (Auto) Neut # (Auto) Lymph # (Auto) [place] # (Auto) Eos # (Auto) Baso # (Auto) Total Counted Immature Gran % Nucleated RBC % Immature Gran # Segmented Neutrophils Lymphocytes Monocytes Nucleated RBCs # Platelet Estimate Hypochromasia Microcytosis [place] Cells INR PT Patient/Control Mix ABG pH 7.463 H ABG pCO2 27.7 L ABG pO2 68.3 L ABG HCO3 19.4 L ABG Total CO2 20.2 L ABG O2 Saturation 93.2 L ABG Base Excess -3.6 L FiO2 70.00 Sodium Potassium Chloride Carbon Dioxide Anion Gap BUN Creatinine GFR Calculation BUN/Creatinine Ratio Glucose POC Glucose 307 H Calculated Osmolality Lactic Acid Calcium Phosphorus Magnesium Total Bilirubin Direct Bilirubin Indirect Bilirubin AST ALT Alkaline Phosphatase Ammonia Total Protein Albumin Prealbumin Hepatitis A IgM Ab Hep Bs Antigen Hep B Core IgM Ab Hepatitis C Antibody Blood Type Cancelled Antibody Screen Cancelled Crossmatch See Detail Blood Bank Comment Cancelled 04/14/17 04/14/17 04/14/17 03:38 03:38 03:38 WBC 14.7 H RBC 2.90 L Hgb 8.6 L Hct 24.9 L MCV 85.9 L MCH 30 MCHC 34.5 RDW 15.9 Plt Count 150 D MPV 12.1 H Neut % (Auto) 90.8 H Lymph % (Auto) 2.5 L [place] % (Auto) 5.4 Eos % (Auto) 0.0 Baso % (Auto) 0.1 Neut # (Auto) 13.3 H Lymph # (Auto) 0.4 L [place] # (Auto) 0.8 Eos # (Auto) 0.0 Baso # (Auto) 0.0 Total Counted 100 Immature Gran % 1.2 Nucleated RBC % 0.0 Immature Gran # 0.18 Segmented Neutrophils 94 H Lymphocytes 3 L Monocytes 3 Nucleated RBCs # 0.00 Platelet Estimate Adequate Hypochromasia Slight Microcytosis Slight [place] Cells Slight INR PT Patient/Control Mix ABG pH ABG pCO2 ABG pO2 ABG HCO3 ABG Total CO2 ABG O2 Saturation ABG Base Excess FiO2 Sodium 135 L Potassium 4.4 Chloride 95 L Carbon Dioxide 27 Anion Gap 17.4 H BUN 68 H Creatinine 5.40 H GFR Calculation 12 BUN/Creatinine Ratio 12.00 Glucose 261 H POC Glucose Calculated Osmolality 298.1 Lactic Acid Calcium 7.3 L Phosphorus 7.5 H Magnesium 2.4 Total Bilirubin Direct Bilirubin Indirect Bilirubin AST ALT Alkaline Phosphatase Ammonia Total Protein Albumin Prealbumin 16.9 L Hepatitis A IgM Ab Hep Bs Antigen Hep B Core IgM Ab Hepatitis C Antibody Blood Type Antibody Screen Crossmatch Blood Bank Comment 04/14/17 04/14/17 04/14/17 03:38 03:38 07:44 WBC RBC Hgb Hct MCV MCH MCHC RDW Plt Count MPV Neut % (Auto) Lymph % (Auto) [place] % (Auto) Eos % (Auto) Baso % (Auto) Neut # (Auto) Lymph # (Auto) [place] # (Auto) Eos # (Auto) Baso # (Auto) Total Counted Immature Gran % Nucleated RBC % Immature Gran # Segmented Neutrophils Lymphocytes Monocytes Nucleated RBCs # Platelet Estimate Hypochromasia Microcytosis [place] Cells INR 1.3 PT Patient/Control Mix 14.0 ABG pH ABG pCO2 ABG pO2 ABG HCO3 ABG Total CO2 ABG O2 Saturation ABG Base Excess FiO2 Sodium Potassium Chloride Carbon Dioxide Anion Gap BUN Creatinine GFR Calculation BUN/Creatinine Ratio Glucose POC Glucose 297 H Calculated Osmolality Lactic Acid Calcium Phosphorus Magnesium Total Bilirubin 0.50 Direct Bilirubin 0.30 H Indirect Bilirubin 0.2 AST 383 H ALT 1551 H Alkaline Phosphatase 65 Ammonia Total Protein 4.8 L Albumin 2.2 L Prealbumin Hepatitis A IgM Ab Hep Bs Antigen Hep B Core IgM Ab Hepatitis C Antibody Blood Type Antibody Screen Crossmatch Blood Bank Comment 04/14/17 08:27 WBC RBC Hgb Hct MCV MCH MCHC RDW Plt Count MPV Neut % (Auto) Lymph % (Auto) [place] % (Auto) Eos % (Auto) Baso % (Auto) Neut # (Auto) Lymph # (Auto) [place] # (Auto) Eos # (Auto) Baso # (Auto) Total Counted Immature Gran % Nucleated RBC % Immature Gran # Segmented Neutrophils Lymphocytes Monocytes Nucleated RBCs # Platelet Estimate Hypochromasia Microcytosis [place] Cells INR PT Patient/Control Mix ABG pH 7.444 ABG pCO2 29.8 L ABG pO2 70.7 L ABG HCO3 21.9 ABG Total CO2 18.8 L ABG O2 Saturation 93.1 L ABG Base Excess -2.9 L FiO2 60.00 Sodium Potassium Chloride Carbon Dioxide Anion Gap BUN Creatinine GFR Calculation BUN/Creatinine Ratio Glucose POC Glucose Calculated Osmolality Lactic Acid Calcium Phosphorus Magnesium Total Bilirubin Direct Bilirubin Indirect Bilirubin AST ALT Alkaline Phosphatase Ammonia Total Protein Albumin Prealbumin Hepatitis A IgM Ab Hep Bs Antigen Hep B Core IgM Ab Hepatitis C Antibody Blood Type Antibody Screen Crossmatch Blood Bank Comment
[2017-04-14] MEDS ORDERED: DOPamine 800 MG/250 ML PREMIX IV SCH (09:30)
[2017-04-14] MEDS: MORPHINE 2 MG/1 ML SYRINGE IV PRN ×2 (10:20→18:32)
[2017-04-14] MEDS ORDERED: DEXTROSE 50% 25 GM/50 ML VIAL IV PRN (12:08)
[2017-04-14] MEDS ORDERED: GLUCAGON 1 MG VIAL IM PRN (12:08)
--- NOTE | 2017-04-14 12:19 | Hospitalist Progress Note ---
Assessment and Plan (1) Respiratory failure Status: Acute Assessment and plan: Fio2 down to 60%, mostly due to pulmonary edema but we are also treating him with rocephin and levaquin for potential pneumonia. Current Visit: Yes (2) Pericardial effusion Status: Acute Assessment and plan: echo showed moderate pericardial effusion,cont dialysis removed about 2.6 liters of fluid yesterday Current Visit: Yes (3) Bilateral pleural effusion Status: Acute Assessment and plan: cont dialysis Current Visit: Yes (4) Diabetes Status: Chronic Assessment and plan: cont tpn, bs over 300, now lantus 30 units and high dose isc Current Visit: No Qualifiers: Diabetes mellitus type: type 2 (5) Atrial fibrillation Problem details: Paroxysmal; early postoperative period patient has maintained normal sinus rhythm. Systemic coagulation per consulting conduit reamer operator and cardiothoracic surgery service. Patient is receiving treatment dose subQ Lovenox Status: Chronic Assessment and plan: Eliquis on hold due to bleeding Current Visit: No (6) S/P CABG (coronary artery bypass graft) Problem details: Three-vessel coronary artery disease; internal mammary graft to the anterior descending coronary artery and saphenous vein graft to the obtuse marginal and right coronary arteries 04/02/2017 (postop day 3). Status : Chronic Assessment and plan: had to hold the asa due to diffuse bleeding yesterday Current Visit: No (7) Anemia Problem details: Multifactorial including chronic disease and acute surgical blood loss. Patient remains hemodynamically stable. Continue monitoring. There is no indication for immediate blood product transfusion at present. Status: Acute Assessment and plan: 2 units of PRBC on dialysis today, hgb 8.6, cont protonix, bleeding much better today Current Visit: No (8) Acute kidney injury Problem details: Related to suspected intravascular volume depletion. IV Lasix dose discontinued earlier today. Recheck BMP in a.m. Status: Acute Assessment and plan: cont dialysis Current Visit: No (9) Ileus Status: Acute Assessment and plan: still has diminished bowel sounds less distended Current Visit: Yes (10) Hypotension Status: Acute Assessment and plan: pressors on hold Current Visit: Yes (11) UGI bleed Status: Acute Assessment and plan: Dr. Vicente does not recommend an EGD right now. Recommends waiting another 48 hours Current Visit: Yes Hospitalist: Subjective Interval history: Tachy from dopamine and had to switch to neosynephrine. Off grey today. Will give 2 units of blood today, poor UO, expect he will dialyze today. GI bleeding much better today Exam - Constitutional Vitals: Period Temp Pulse Resp BP Sys/Guzman Pulse Ox Last 24 Hr 97.1 F-98.0 F 69-105 10-26 79-147/58-92 90-99 Exam: Heart Rate-[IRR] Lungs-diminished] GI-[diminished bowel sounds, distended less tight Ext-[1+ edema, anasarca] Neuro following commands. psych normal mood and affect General [no acute distress] Results - Labs CBC & BMP: 04/14/17 03:38 04/14/17 03:38 Lab Results: I have reviewed the past 24 hour labs Labs: Blood cultures and sputum cultures negative. - Diagnostic Findings Procedure: Chest x-ray: report reviewed by me (No significant change patient continues to have diffuse pulmonary edema with mild worsening of focal consolidation and worsening of the effusion of the left pleural effusion), Ultrasound: report reviewed by me (Echocardiogram showed an EF of 65% with moderate sized pericardial effusion)
--- NOTE | 2017-04-14 12:37 | Gastrointestinal Consult Note ---
Assessment and Plan (1) UGI bleed Status: Acute Assessment and plan: 04/14-sudden onset on yesterday of bright red blood from NG. Significant decrease in bleeding today. H&H is stable at 05/21 currently. Patient is hemodynamically stable. Eliquis with last dose on 04/12. Continue to monitor H& H and bleeding. No plans for endoscopy at present time. Plan an addendum to followed by Dr. Vicente. Current Visit: Yes History of Present Illness Chief complaint: GI bleed History of present illness: Mr. Mathew is a 67 year old male who was admitted to the hospital on 04/11 for complaints of nausea, vomiting and diarrhea. The patient is intubated and sedated at this time therefore information is obtained from chart review patient has a prior history of diabetes mellitus, hypertension, CAD, GERD, asbestosis, DDD, atrial fibrillation (on Eliquis) and skin cancer. Patient is noted to have been discharged from [facility] on 04/07 after undergoing CABG 3. He is reported to have done well and was discharged home however 3 nights ago he had a rather sudden onset of nausea and vomiting. Following this onset, he also had some shortness of breath and came to the emergency room for further evaluation. Upon arriving in the emergency room, patient became bradycardic and had cardiac arrest and a code was called. At that time he was intubated and placed on the ventilator and placed in ICU for further treatment. Patient was initially on pressor support however at this time this has been weaned off. He was also found to have acute renal failure and was placed on hemodialysis. Patient had NG tube placed and was found to have some bright red blood in his NG tube. His Eliquis has been held since yesterday and at this time he is hemodynamically stable. There are no bowel movements that have been reported at this time. On admission patient's H&H was noted 05/21. He has been transfused 2 units of packed red blood cells and is currently holding at 05/21. BUN/creatinine ratio is 12. He is noted to have elevation in his AST at 1465 and ALT at 2629 following his cardiac arrest however these are trending downward at this time. He has no prior history of peptic ulcer disease in the past. Home Medications Medication Instructions Recorded Confirmed Type Acyclovir [Zovirax Cap/Tab] 400 mg PO 5X DAILY PRN 10/26/15 04/11/17 History Apixaban [Eliquis] 5 mg PO BID 10/26/15 04/11/17 History Aspirin [Ecotrin] 81 mg PO BEDTIME 10/26/15 04/11/17 History Diphenoxylate/Atrop 2.5-0.025 2 tablet PO Q6H PRN 10/26/15 04/11/17 History [Lomotil Tab] Esomeprazole Magnesium [Nexium] 40 mg PO BEDTIME 10/26/15 04/11/17 History Gemfibrozil 600 mg PO BID 10/26/15 04/11/17 History Glimepiride [Amaryl] 4 mg PO BID W/MEALS 10/26/15 04/11/17 History Lidocaine 5% Patch [Lidoderm 5% 1 patch TRANSDERM DAILY PRN 10/26/15 04/11/17 History Patch] Magnesium Chloride [Slow Mag] 64 mg PO BID 10/26/15 04/11/17 History Methocarbamol Tab [Robaxin Tab] 750 mg PO DAILY PRN 10/26/15 04/11/17 History [place]-3 Fatty Acids [Fish Oil] 1,000 mg PO DAILY 10/26/15 04/11/17 History Vitamin E 400 unit PO DAILY 10/26/15 04/11/17 History Zolpidem Tartrate [Ambien Cr] 12.5 mg PO BEDTIME 10/26/15 04/11/17 History diphenhydrAMINE CAP [Benadryl Cap] 25 mg PO Q6H PRN 10/26/15 04/11/17 History metFORMIN [Glucophage] 1,000 mg PO BID W/MEALS 10/26/15 04/11/17 History Carvedilol [Coreg] 6.25 mg PO BID 04/01/17 04/11/17 History Furosemide 20 mg PO DAILY 04/01/17 04/11/17 History Gabapentin 300 mg PO BID 04/01/17 04/11/17 History Multivit-Min/FA/Lutein/Zeaxant 1 tablet PO DAILY 04/01/17 04/11/17 History [Icaps Mv Tablet] Rosuvastatin Calcium [Crestor] 40 mg PO BEDTIME 04/01/17 04/11/17 History Amiodarone Tab [Cordarone Tab] 200 mg PO BID tablet 04/07/17 04/11/17 Rx Docusate Sodium Cap [Colace Cap] 100 mg PO DAILY capsule 04/07/17 04/11/17 Rx Ferrous Sulfate Tab [Feosol 325 mg PO DAILY tablet 04/07/17 04/11/17 Rx Original Tab] Magnesium Hydroxide Susp [Milk of 30 ml PO Q6H PRN 04/07/17 04/11/17 Rx Magnesia] Multivitamin (Ocuvite) [Ocuvite] 1 tablet PO DAILY tablet 04/07/17 04/11/17 Rx sitaGLIPtin [Januvia] 100 mg PO DAILY tablet 04/07/17 04/11/17 Rx Hydrocodone/Acetaminophen [Lortab 1 each PO Q8H PRN 04/11/17 04/11/17 History 10-325 mg Tablet] Insulin Glargine,Hum.rec.anlog 10 units PO QPM 04/11/17 04/11/17 History [Lantus SoloStar] Lisinopril [Lisinopril] 20 mg PO DAILY 04/11/17 04/11/17 History dilTIAZem HCl [Diltiazem ER (24 120 mg PO BID 04/11/17 04/11/17 History hr)] Allergies Allergy/AdvReac Type Severity Reaction Status Date / Time shrimp Allergy Mild ITCHING Verified 04/11/17 06:45 Sulindac [From [place]] Allergy Mild ITCHING Verified 04/11/17 06:45 Medical,Surgical,& Family Hx - Medical History Cardio: History of: Cerebrovascular Disease (A FLUTTER), CAD (5 stents), Hypertension, Cardiovascular Problems (DR LINDQUIST CARDIOVERSION 4-5 YEARS AGO) Neurology: History of: Peripheral Neuropathy (DIABETIC NERVE PAIN) No history of: Seizures HEENT: History of: Eye Problem (READING GLASSES, MACULAR DEGERATION PT GETS SHOTS Q6 WEEKS), Dental Problems (UPPER FULL PLATE) Endocrine: History of: Diabetes Mellitus (NIDDM), Dyslipidemia, Thyroid Disorder Respiratory: History of: COPD, Respiratory Problems (ASBESTOSIS) Genitourinary: History of: Kidney Stones Gastrointestinal: History of: GERD, Hemorrhoids, Liver Problems (ELEVATED ENZYMES IN PAST), Polyps (REMOVED), GI Problems (DIARRHEA) Musculoskeletal: History of: Back/Neck Problems, Degenerative Disk Disease ( FRACTURE 1983 DR JONES PAST HX SPINAL INJECTIONS) Other: History of: Cancer (SKIN RIGHT EAR, SHOULDER) - Surgical History Cardiac Surgeries: Sugical HX of: Femoral-Popliteal Bypass Graft, Cardiac Catheterization (5 STENTS), Cardiac Surgery (Triple Bypass 04/02/17) HEENT Surgeries: Surgical HX of: Eye Surgery (LEFT EYE RETINA SURGERY), Thyroid Surgery (BX), Tonsilectomy & Adenoidectomy Abdominal Surgeries: Surgical HX of: Cholecystectomy, Colonoscopy, EGD Orthopedic Surgeries: Surgical HX of;: Implanted Devices (5 STENTS), Orthopedic Surgery (BILATERAL CARPAL TUNNEL) - Family History Family History: Reports;: Family Anesthesia Reaction (MOTHER ALLEGRY), Family Diabetes (MOTHER), Family Heart Disease (MOTHER FATHER), Family Hypertension ( MOTHER AND FATHER), Family Stroke (FATHER) - Social History Smoking Status: Former smoker Frequency of Alcohol Use: None Type of Drug Use: None ROS unobtainable: due to endotracheal tube Exam - Constitutional Vitals: Period Temp Pulse Resp BP Sys/Guzman Pulse Ox Last 24 Hr 97.1 F-98.0 F 69-105 10-26 79-147/58-92 90-99 General appearance: normal weight, no acute distress - Head Head exam: Present: normal inspection, normocephalic - Eye Eye exam: Present: other (Lids and conjunctivae are unremarkable). Absent: scleral icterus - ENT ENT exam: Present: normal exam, normal oropharynx - Neck Neck exam: Present: normal inspection - Respiratory Respiratory exam: Present: clear to auscultation bilaterally. Absent: rales, rhonchi, wheezes - Cardiovascular Cardiovascular exam: Present: regular rate and rhythm. Absent: diastolic murmur , JVD, systolic murmur - GI/Abdominal GI/Abdominal exam: Present: normal bowel sounds, soft. Absent: ascites, distended, mass, organomegaly, tenderness - Extremities Exam Extremities exam: Present: normal inspection, full ROM - Back Exam Back exam: Present: normal inspection - Neurological Exam Neurological exam: Present: altered - Psychiatric Psychiatric exam: Present: other - Skin Skin exam: Present: normal color, warm, dry Results - Labs CBC & BMP: 04/14/17 03:38 04/14/17 03:38 Lab Results: I have reviewed the past 24 hour labs
[2017-04-14] MEDS: INSULIN GLARGINE 100 UNIT/ML SUBCUT SCH (13:40)
[2017-04-14] MEDS: cefTRIAXone 1,000 MG in SODIUM CHLORIDE 0.9% 100 ML IV SCH (13:40)
--- NOTE | 2017-04-14 13:46 | Nephrology Progress Note ---
Nephrology - PN: Subj Interval history: The patient is more comfortable today. Tolerated dialysis on yesterday. Plan for hemodialysis on today. Continue with support. Exam (PN)-Nephrology - Vital Signs Vital signs: Period Temp Pulse Resp BP Sys/Guzman Pulse Ox Last 24 Hr 97.1 F-98.0 F 72-105 12-26 79-147/58-92 90-97 - General Appearance General appearance: well-developed, intubated EENT: ATNC Neck: supple Respiratory: clear Cardiology: regular rate, regular rhythm Gastrointestinal: normoactive bowel sounds Musculoskeletal: no deformities - Lab 04/14/17 03:38 04/14/17 03:38 Most recent lab results ABG pH 7.444 (7.35-7.45) 04/14/17 08:27 ABG pCO2 29.8 MM HG (35-48) L 04/14/17 08:27 ABG pO2 70.7 MM HG (80-95) L 04/14/17 08:27 ABG HCO3 21.9 MMOL/L (20-26) 04/14/17 08:27 ABG O2 Saturation 93.1 % (95-100) L 04/14/17 08:27 Calcium 7.3 MG/DL (8.5-10.1) L 04/14/17 03:38 Phosphorus 7.5 MG/DL (2.5-4.9) H 04/14/17 03:38 Magnesium 2.4 MG/DL (1.8-2.4) 04/14/17 03:38 Assessment and Plan (1) Diabetes Status: Chronic Current Visit: No Qualifiers: Diabetes mellitus type: type 2 (2) Hypertension Problem details: Well-controlled postoperatively; continue current treatment with Coreg, diltiazem, and Lasix. Status: Chronic Current Visit: No Qualifiers: Hypertension type: essential hypertension Qualified Code(s): I10 - Essential (primary) hypertension (3) S/P CABG (coronary artery bypass graft) Problem details: Three-vessel coronary artery disease; internal mammary graft to the anterior descending coronary artery and saphenous vein graft to the obtuse marginal and right coronary arteries 04/02/2017 (postop day 3). Status : Chronic Current Visit: No (4) Anemia Problem details: Multifactorial including chronic disease and acute surgical blood loss. Patient remains hemodynamically stable. Continue monitoring. There is no indication for immediate blood product transfusion at present. Status: Acute Current Visit: No (5) Acute kidney injury Problem details: Related to suspected intravascular volume depletion. IV Lasix dose discontinued earlier today. Recheck BMP in a.m. Status: Acute Assessment and plan: Acute kidney injury. More likely due to ATN. Continue with dialysis support. Current Visit: No (6) Hyperkalemia Status: Resolved Assessment and plan: This is resolved. Current Visit: Yes (7) Respiratory failure Status: Acute Current Visit: Yes
[2017-04-14] MEDS ORDERED: [UNRECOGNIZED DRUG - OTHER] IV SCH (17:00)
[2017-04-14] MEDS ORDERED: MULTIVITAMIN IV SCH (17:00)
[2017-04-14] MEDS ORDERED: TRACE ELEMENTS IV SCH (17:00)
[2017-04-14] MEDS ORDERED: ELECTROLYTE CONCENTRATE 40 ML, TRACE ELEMENTS (5) 1 ML, MULTIVITAMIN INJ 10 ML, INSULIN... IV SCH (17:00)
[2017-04-14] MEDS ORDERED: ELECTROLYTE IV SCH (17:00)
[2017-04-14] MEDS ORDERED: INSULIN REGULAR 100 UNIT/ML IV ONE (18:46)
[2017-04-15] MEDS: ALBUTEROL/IPRATROPIUM 3 ML NEB RESP TX SCH ×4 (00:11→19:52)
[2017-04-15] MEDS: INSULIN REGULAR 100 UNIT/ML SUBCUT SCH ×5 (00:18→23:23)
[2017-04-15 03:46] LABS: ABG Base Excess -3.4 MMOL/L (-2.5-2.5); ABG HCO3 19.1 MMOL/L (20-26); ABG Oxygen Saturation 93.2 % (95-100); ABG PCO2 27.1 MM HG (35-48); ABG PH 7.467 (7.35-7.45); ABG PO2 69.5 MM HG (80-95); Allen Test Positive; Pt O2 Delivery Device Ventilator
[2017-04-15] MEDS: MORPHINE 2 MG/1 ML SYRINGE IV PRN ×2 (04:42→14:45)
[2017-04-15 05:10] LABS: Eosinophils % 0.1 % (0.00-10.9); Hematocrit 31.4 VOL% (42.0-52.0); Immature Granulocytes % 1.2 %; Immature Granulocytes Absolute 0.14 #; Lymphocytes # 0.3 10*3/uL (1.4-4.0); Lymphocytes % 2.6 % (21.2-54.2); Mean Corpuscular HGB Conc 34.7 GM/DL (32-36); Mean Corpuscular Hemoglobin 30 PG (27-34); Mean Corpuscular Volume 85.3 FL (87-102); Mean Platelet Volume 12.4 FL (9.6-12.0); Monocytes # 0.7 10*3/uL (0.11-0.8); Monocytes % 5.7 % (1.7-12.7); NRBC # 0.02 10*3/uL; Neutrophils # 10.6 10*3/uL (1.4-7.4); Neutrophils % 90.4 % (38.7-73.9); Red Cell Distribution Width 15.4 % (9.3-17.3); White Blood Count 11.7 T/CUMM (4-12)
[2017-04-15 05:25] LABS: Red Blood Count 3.68 MC/CUMM (3.8-5.5)
[2017-04-15 05:26] LABS: Hemoglobin 10.9 GM/DL (14.0-18.0); Platelet Count 118 T/CUMM (130-400)
[2017-04-15 05:38] LABS: Calcium 7.6 MG/DL (8.5-10.1); Magnesium 2.5 MG/DL (1.8-2.4); Osmolality,Calculated 299.5 MOS/KG (273-304); Potassium 4.5 MMOL/L (3.5-5.1)
[2017-04-15 05:39] LABS: Giant Platelets Few; Hypochromasia 1+; Lymphocytes 6 % (20-55); Microcytosis Slight; Platelet Estimate Normal; Segmented Neutrophils 88 % (50-85); Total Cells Counted 100
[2017-04-15] MEDS: PROPOFOL 1,000 MG/100 ML BOTTLE IV SCH ×4 (05:55→19:05)
--- NOTE | 2017-04-15 06:27 | Pulmonology Progress Note ---
Pulmonary - PN: Subj Interval history: Patient is a 67-year-old white man that had bypass surgery several weeks ago. He came back in with respiratory distress and congestive heart failure. He does have a history of having COPD. He had to be intubated for his respiratory distress. He developed worsening renal failure and has required dialysis. He still has relative hypoxemia but is stable on the ventilator. Exam (Progress Note) - Constitutional Vitals: Period Temp Pulse Resp BP Sys/Guzman Pulse Ox Last 24 Hr 97.2 F-98.0 F 62-85 16-21 91-143/64-96 91-96 General appearance: normal weight, no acute distress (The patient is sedated at present on the ventilator.) - Head Head exam: Present: normal inspection, normocephalic - Eye Eye exam: Present: EOMI. Absent: scleral icterus Pupils: Present: HEATHER - ENT ENT exam: Present: normal exam, other (He has an ET tube in place.) - Neck Neck exam: Present: normal inspection. Absent: lymphadenopathy, thyromegaly - Respiratory Respiratory exam: Present: prolonged expiratory phase, rhonchi. Absent: wheezes - Cardiovascular Cardiovascular exam: Present: irregular rhythm, other (Chest wall wound is doing well.). Absent: gallop, systolic murmur - GI/Abdominal GI/Abdominal exam: Present: normal bowel sounds, soft. Absent: organomegaly, tenderness - Extremities Exam Extremities exam: Present: edema (He does have some swelling of his legs.). Absent: calf tenderness - Neurological Exam Neurological exam: Present: altered (He apparently responds fairly well when off sedation.) - Psychiatric Psychiatric exam: Absent: anxious - Skin Skin exam: Present: warm, dry Results - Labs CBC & BMP: 04/15/17 04:13 04/15/17 04:13 Labs: PO2 69 with a PCO2 of 27 and pH of 7.46 on 60% - Diagnostic Findings Procedure: Chest x-ray: image reviewed by me, report reviewed by me (Chest x- ray shows cardiomegaly with bilateral effusions and is consistent with CHF.) Assessment and Plan (1) Diabetes Status: Chronic Assessment and plan: The patient's glucoses are in the 300 and 400 range and is getting insulin. Current Visit: No Qualifiers: Diabetes mellitus type: type 2 (2) Hypertension Problem details: Well-controlled postoperatively; continue current treatment with Coreg, diltiazem, and Lasix. Status: Chronic Assessment and plan: The patient blood pressure has been under reasonable control Current Visit: No Qualifiers: Hypertension type: essential hypertension Qualified Code(s): I10 - Essential (primary) hypertension (3) Atrial fibrillation Problem details: Paroxysmal; early postoperative period patient has maintained normal sinus rhythm. Systemic coagulation per consulting supervisor computer operations and cardiothoracic surgery service. Patient is receiving treatment dose subQ Lovenox Status: Chronic Assessment and plan: The patient's heart rate is stable. Current Visit: No (4) S/P CABG (coronary artery bypass graft) Problem details: Three-vessel coronary artery disease; internal mammary graft to the anterior descending coronary artery and saphenous vein graft to the obtuse marginal and right coronary arteries 04/02/2017 (postop day 3). Status : Chronic Assessment and plan: The patient had bypass surgery several weeks ago. Current Visit: No (5) Renal failure Status: Acute Assessment and plan: The patient is now on dialysis and his volume status is better Current Visit: Yes (6) Respiratory failure Status: Acute Assessment and plan: The patient still has a large A-a O2 grade his PO2 is not that high. He is not ready to wean. Current Visit: Yes
[2017-04-15] MEDS: methylPREDNISolone SOD SUC 40 MG/1 ML VIAL IV SCH ×2 (07:40→19:05)
--- NOTE | 2017-04-15 08:00 | XRay Report ---
History short of breath Comparison 04/14/2017 The heart is enlarged. Support device unchanged Moderate left greater than right hazy pulmonary opacities remain with continued more focal consolidation and effusion obscuring the left diaphragm Impression: No significant change detailed above PROCEDURE INTERPRETED AT [facility] DEPARTMENT OF RADIOLOGY Final Report Signed by: Dr. Taryn Daniel
--- NOTE | 2017-04-15 08:37 | Nephrology Progress Note ---
Nephrology - PN: Subj Interval history: Mr. Mathew seen in follow-up of his acute renal failure. He is oliguric and is intubated. His chest x-ray exhibits evidence of excess fluid at the bases but no alice pulmonary edema. He has no pneumothorax. He has no peripheral edema. Laboratories acceptable reflecting dialysis to previous days. He is to undergo upper endoscopy today for development of a GI bleed. Will plan to hold off on any dialysis this morning and will likely dialyze tomorrow he is wide awake and appropriate but still requiring the ventilator. We do expect his renal function to return given time. Exam (PN)-Nephrology - Vital Signs Vital signs: Period Temp Pulse Resp BP Sys/Guzman Pulse Ox Last 24 Hr 97.2 F-98.1 F 62-86 16-27 91-143/64-96 91-96 - Lab 04/15/17 04:13 04/15/17 04:13 Most recent lab results ABG pH 7.467 (7.35-7.45) H 04/15/17 03:30 ABG pCO2 27.1 MM HG (35-48) L 04/15/17 03:30 ABG pO2 69.5 MM HG (80-95) L 04/15/17 03:30 ABG HCO3 19.1 MMOL/L (20-26) L 04/15/17 03:30 ABG O2 Saturation 93.2 % (95-100) L 04/15/17 03:30 Calcium 7.6 MG/DL (8.5-10.1) L 04/15/17 04:13 Phosphorus 7.5 MG/DL (2.5-4.9) H 04/14/17 03:38 Magnesium 2.5 MG/DL (1.8-2.4) H 04/15/17 04:13
[2017-04-15] MEDS: INSULIN GLARGINE 100 UNIT/ML SUBCUT SCH (09:01)
[2017-04-15] MEDS: PANTOPRAZOLE 40 MG VIAL IV SCH ×2 (09:01→20:27)
--- NOTE | 2017-04-15 10:32 | Cardiology Progress Note ---
<Rula Cordova E - Last Filed: 04/15/17 10:23> Assessment and Plan - Time spent with patient Time spent with patient: Greater than 30 minutes (1) Respiratory failure Status: Acute Assessment and plan: SEE PLAN OF CARE LISTED BELOW Current Visit: Yes (2) Hyperkalemia Status: Resolved Assessment and plan: SEE PLAN OF CARE LISTED BELOW Current Visit: Yes (3) Acute kidney injury Problem details: Related to suspected intravascular volume depletion. IV Lasix dose discontinued earlier today. Recheck BMP in a.m. Status: Acute Assessment and plan: SEE PLAN OF CARE LISTED BELOW Current Visit: No (4) Anemia Problem details: Multifactorial including chronic disease and acute surgical blood loss. Patient remains hemodynamically stable. Continue monitoring. There is no indication for immediate blood product transfusion at present. Status: Acute Assessment and plan: SEE PLAN OF CARE LISTED BELOW Current Visit: No (5) Atrial fibrillation Problem details: Paroxysmal; early postoperative period patient has maintained normal sinus rhythm. Systemic coagulation per consulting chainstitch felled seam operator and cardiothoracic surgery service. Patient is receiving treatment dose subQ Lovenox Status: Chronic Assessment and plan: SEE PLAN OF CARE LISTED BELOW Current Visit: No (6) Coronary artery disease Status: Chronic Assessment and plan: SEE PLAN OF CARE LISTED BELOW Current Visit: No Qualifiers: Coronary Disease-Associated Artery/Lesion type: [place] artery Tribal vs. transplanted heart: [place] heart Associated angina: without angina Qualified Code(s): I25.10 - Atherosclerotic heart disease of [place] coronary artery without angina pectoris (7) Diabetes Status: Chronic Assessment and plan: SEE PLAN OF CARE LISTED BELOW Current Visit: No Qualifiers: Diabetes mellitus type: type 2 (8) Dyslipidemia Problem details: Receiving Crestor. Check fasting lipid profile in a.m. Status: Chronic Assessment and plan: SEE PLAN OF CARE LISTED BELOW Current Visit: No (9) Hypertension Problem details: Well-controlled postoperatively; continue current treatment with Coreg, diltiazem, and Lasix. Status: Chronic Current Visit: No Qualifiers: Hypertension type: essential hypertension Qualified Code(s): I10 - Essential (primary) hypertension (10) S/P CABG (coronary artery bypass graft) Problem details: Three-vessel coronary artery disease; internal mammary graft to the anterior descending coronary artery and saphenous vein graft to the obtuse marginal and right coronary arteries 04/02/2017 (postop day 3). 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 BAUTISTA SUMMARY: Mr. Mathew, 67WM, underwent elective cardiac catheterization April 01, 2017 revealing severe three-vessel CAD, EF 60%. April 02, 2017 underwent CABG 3 (SUE - LAD, SVG - OM, SVG - RCA). Tolerated the procedure well and without complication. He was discharged home in stable condition April 07, 2017. Patient returned to the ED of [facility] April 11, 2017 with nausea and vomiting. In the ER, he suddenly became bradycardic, hypotensive and required CPR, intubation and resuscitation. He was found to be hyperkalemic (potassium 6.6). EKG after CODE revealed bradycardia with a wide QRS complex. Cardiology was asked to evaluate for possible STEMI. It is felt this was NSTEMI with more of a metabolic ECG change with right wide QRS complex but without findings of acute CA. The repeat EKG revealed narrow QRS complex, no ST elevation. He has chronic atrial fibrillation. He is also found to be in acute renal failure. His only new medication at discharge was Amiodarone. Echo April 11, 2017: EF 50% without significant valvular abnormality. APRIL 13, 2017: This morning, patient is responsive. Abdomen firm with scant bowel sounds. Patient acknowledges significant abdominal pain. Creatinine has worsened at 5.3. ALT, AST elevated. Will repeat LFTs this morning. Hold lipid -lowering agent at this time. Post CABG anemia seems to be stable. He is going for CT Abdomen this morning. Will order EKG this morning. Few telemetry strips recorded over the past 48 hours. Will ask more frequently to be scanned in. Eliquis continues at 5 mg twice daily. At this point, I will hold Eliquis until patient's abdominal issues were addressed. Will further discuss with Dr. Bautista and await additional recommendations. APRIL 15, 2017: Night, dopamine has been weaned off and his blood pressure has been stable. He is n.p.o. for an EGD this morning. Although he is on the ventilator, he wakes easily and follows commands. Creatinine minimally improved at 5.0 this morning. Anemia also stable. Continue to hold Eliquis, Amiodarone and lipid-lowering agent until acute issues have resolved. Remains in normal sinus rhythm. Wounds healing well without dehiscence or drainage. ASSESSMENT/PLAN: 1. RESPIRATORY FAILURE - intubated, continue current plan of care. Pulmonary assisting. 2. HYPERKALEMIA - resolved. 3. CAD - 3VCAD now status post revascularization. On Aspirin. Will reincorporate beta-veronika soon. Undergoing EGD today. Potentially, this afternoon with reintroduce beta-veronika. Holding SANTOS inhibitor due to acute kidney injury. Holding lipid-lowering agent due elevated AST, ALT. 4. S/P CABG - SUE - LAD, SVG - OM, SVG - RCA. Continue current plan of care 5. HYPERTENSION - usually well controlled. 6. DYSLIPIDEMIA - LDL at goal (30) during last hospital stay. Holding lipid- lowering agent at this point. 7. ATRIAL FIBRILLATION - holding amiodarone until acute issues resolved. Remains in normal sinus rhythm. Also holding Eliquis at this point. 8. DIABETES - Hospitalist has been instrumental in better controlling diabetes 9. ANEMIA - stable 10. ACUTE KIDNEY INJURY - creatinine slowly improved. Avoiding nephrotoxic agents 11. ABDOMINAL DISTENTION, PAIN - undergoing EGD this morning. Exam (Progress Note) - Constitutional Vitals: Period Temp Pulse Resp BP Sys/Guzman Pulse Ox Last 24 Hr 97.2 F-98.1 F 62-86 16-27 108-143/72-96 91-96 Exam: General: [Appears to be in abdominal pain. Cooperative. ] HEENT: [PERRL, normocephalic, atraumatic. Mucous membranes moist. No jaundice noted. Conjunctiva moist and clear, sclerae anicteric] Neck: Unable to assess for JVD due to habitus. No carotid bruit appreciated Cardiac: [Regular rate and rhythm.] [No obvious murmur rub or gallop.] Sternotomy incision healing well without dehiscence or drainage Lungs: [Clear to auscultation without accessory muscle use to assist the respiratory pattern.] Symmetrical chest wall movements noted. Abdomen: Good, firm, sluggish bowel sounds. Tender to touch. Musculoskeletal: No fluid collection. Decreased range of motion is noted. Extremities: No clubbing, cyanosis noted. [ No edema noted.] Upper extremity pulses 2+. Lower extremity pulses 2+. Bilateral lower extremity incision is healing well without dehiscence or drainage. . Skin: No unusual lesions or rashes. No skin breakdown appreciated. Neuro: Awakes, pulse commands appropriately. Moves all extremities well without hemiparesis or paralysis. No essential tremor is appreciated. Result/EKG - Labs CBC & BMP: 04/15/17 04:13 04/15/17 04:13 Lab Results: I have reviewed the past 24 hour labs Labs: Laboratory Results - last 24 hr 04/13/17 04/14/17 04/14/17 19:40 12:03 18:25 WBC RBC Hgb Hct MCV MCH MCHC RDW Plt Count MPV Neut % (Auto) Lymph % (Auto) Carver % (Auto) Eos % (Auto) Baso % (Auto) Neut # (Auto) Lymph # (Auto) Carver # (Auto) Eos # (Auto) Baso # (Auto) Total Counted Immature Gran % Nucleated RBC % Immature Gran # Segmented Neutrophils Lymphocytes Monocytes Nucleated RBCs # Platelet Estimate Giant Platelets Hypochromasia Microcytosis ABG pH ABG pCO2 ABG pO2 ABG HCO3 ABG Total CO2 ABG O2 Saturation ABG Base Excess FiO2 Sodium Potassium Chloride Carbon Dioxide Anion Gap BUN Creatinine GFR Calculation BUN/Creatinine Ratio Glucose POC Glucose 350 H 428 H Calculated Osmolality Calcium Magnesium Blood Type A POSITIVE Antibody Screen Negative Crossmatch See Detail 04/14/17 04/14/17 04/15/17 20:14 23:25 03:30 WBC RBC Hgb Hct MCV MCH MCHC RDW Plt Count MPV Neut % (Auto) Lymph % (Auto) Carver % (Auto) Eos % (Auto) Baso % (Auto) Neut # (Auto) Lymph # (Auto) Carver # (Auto) Eos # (Auto) Baso # (Auto) Total Counted Immature Gran % Nucleated RBC % Immature Gran # Segmented Neutrophils Lymphocytes Monocytes Nucleated RBCs # Platelet Estimate Giant Platelets Hypochromasia Microcytosis ABG pH 7.467 H ABG pCO2 27.1 L ABG pO2 69.5 L ABG HCO3 19.1 L ABG Total CO2 20.0 L ABG O2 Saturation 93.2 L ABG Base Excess -3.4 L FiO2 60.00 Sodium Potassium Chloride Carbon Dioxide Anion Gap BUN Creatinine GFR Calculation BUN/Creatinine Ratio Glucose POC Glucose 324 H 317 H Calculated Osmolality Calcium Magnesium Blood Type Antibody Screen Crossmatch 04/15/17 04/15/17 04/15/17 04:13 04:13 05:23 WBC 11.7 RBC 3.68 L D Hgb 10.9 L D Hct 31.4 L MCV 85.3 L MCH 30 MCHC 34.7 RDW 15.4 Plt Count 118 L D MPV 12.4 H Neut % (Auto) 90.4 H Lymph % (Auto) 2.6 L Carver % (Auto) 5.7 Eos % (Auto) 0.1 Baso % (Auto) 0.0 Neut # (Auto) 10.6 H Lymph # (Auto) 0.3 L Carver # (Auto) 0.7 Eos # (Auto) 0.0 Baso # (Auto) 0.0 Total Counted 100 Immature Gran % 1.2 Nucleated RBC % 0.2 Immature Gran # 0.14 Segmented Neutrophils 88 H Lymphocytes 6 L Monocytes 6 Nucleated RBCs # 0.02 Platelet Estimate Normal Giant Platelets Few Hypochromasia 1+ Microcytosis Slight ABG pH ABG pCO2 ABG pO2 ABG HCO3 ABG Total CO2 ABG O2 Saturation ABG Base Excess FiO2 Sodium 132 L Potassium 4.5 Chloride 97 L Carbon Dioxide 21 Anion Gap 18.5 H BUN 69 H Creatinine 5.00 H GFR Calculation 13 BUN/Creatinine Ratio 13.00 Glucose 392 H POC Glucose 436 H Calculated Osmolality 299.5 Calcium 7.6 L Magnesium 2.5 H Blood Type Antibody Screen Crossmatch - Diagnostic Findings Procedure: Chest x-ray: report reviewed by ia - EKG EKG results: interpreted by ia EKG shows: sinus rhythm <Severino Bautista - Last Filed: 04/15/17 12:43> Assessment and Plan (1) Hypotension Status: Acute Current Visit: Yes (2) Renal failure Status: Acute Current Visit: Yes (3) Anemia Problem details: Multifactorial including chronic disease and acute surgical blood loss. Patient remains hemodynamically stable. Continue monitoring. There is no indication for immediate blood product transfusion at present. Status: Acute Current Visit: No (4) Atrial fibrillation Problem details: Paroxysmal; early postoperative period patient has maintained normal sinus rhythm. Systemic coagulation per consulting chainstitch felled seam operator and cardiothoracic surgery service. Patient is receiving treatment dose subQ Lovenox Status: Chronic Current Visit: No (5) Coronary artery disease Status: Chronic Current Visit: No Qualifiers: Coronary Disease-Associated Artery/Lesion type: [place] artery Tribal vs. transplanted heart: [place] heart Associated angina: without angina Qualified Code(s): I25.10 - Atherosclerotic heart disease of [place] coronary artery without angina pectoris (6) S/P CABG (coronary artery bypass graft) Problem details: Three-vessel coronary artery disease; internal mammary graft to the anterior descending coronary artery and saphenous vein graft to the obtuse marginal and right coronary arteries 04/02/2017 (postop day 3). Status : Chronic Current Visit: No Exam (Progress Note) - Constitutional Vitals: Period Temp Pulse Resp BP Sys/Guzman Pulse Ox Last 24 Hr 97.2 F-98.1 F 62-86 16-27 115-143/60-96 91-96 Result/EKG - Labs CBC & BMP: 04/15/17 04:13 04/15/17 04:13 Labs: Laboratory Results - last 24 hr 04/13/17 04/14/17 04/14/17 19:40 18:25 20:14 WBC RBC Hgb Hct MCV MCH MCHC RDW Plt Count MPV Neut % (Auto) Lymph % (Auto) Carver % (Auto) Eos % (Auto) Baso % (Auto) Neut # (Auto) Lymph # (Auto) Carver # (Auto) Eos # (Auto) Baso # (Auto) Total Counted Immature Gran % Nucleated RBC % Immature Gran # Segmented Neutrophils Lymphocytes Monocytes Nucleated RBCs # Platelet Estimate Giant Platelets Hypochromasia Microcytosis ABG pH ABG pCO2 ABG pO2 ABG HCO3 ABG Total CO2 ABG O2 Saturation ABG Base Excess FiO2 Sodium Potassium Chloride Carbon Dioxide Anion Gap BUN Creatinine GFR Calculation BUN/Creatinine Ratio Glucose POC Glucose 428 H 324 H Calculated Osmolality Calcium Magnesium Blood Type A POSITIVE Antibody Screen Negative Crossmatch See Detail 04/14/17 04/15/17 04/15/17 23:25 03:30 04:13 WBC 11.7 RBC 3.68 L D Hgb 10.9 L D Hct 31.4 L MCV 85.3 L MCH 30 MCHC 34.7 RDW 15.4 Plt Count 118 L D MPV 12.4 H Neut % (Auto) 90.4 H Lymph % (Auto) 2.6 L Carver % (Auto) 5.7 Eos % (Auto) 0.1 Baso % (Auto) 0.0 Neut # (Auto) 10.6 H Lymph # (Auto) 0.3 L Carver # (Auto) 0.7 Eos # (Auto) 0.0 Baso # (Auto) 0.0 Total Counted 100 Immature Gran % 1.2 Nucleated RBC % 0.2 Immature Gran # 0.14 Segmented Neutrophils 88 H Lymphocytes 6 L Monocytes 6 Nucleated RBCs # 0.02 Platelet Estimate Normal Giant Platelets Few Hypochromasia 1+ Microcytosis Slight ABG pH 7.467 H ABG pCO2 27.1 L ABG pO2 69.5 L ABG HCO3 19.1 L ABG Total CO2 20.0 L ABG O2 Saturation 93.2 L ABG Base Excess -3.4 L FiO2 60.00 Sodium Potassium Chloride Carbon Dioxide Anion Gap BUN Creatinine GFR Calculation BUN/Creatinine Ratio Glucose POC Glucose 317 H Calculated Osmolality Calcium Magnesium Blood Type Antibody Screen Crossmatch 04/15/17 04/15/17 04/15/17 04:13 05:23 11:22 WBC RBC Hgb Hct MCV MCH MCHC RDW Plt Count MPV Neut % (Auto) Lymph % (Auto) Carver % (Auto) Eos % (Auto) Baso % (Auto) Neut # (Auto) Lymph # (Auto) Carver # (Auto) Eos # (Auto) Baso # (Auto) Total Counted Immature Gran % Nucleated RBC % Immature Gran # Segmented Neutrophils Lymphocytes Monocytes Nucleated RBCs # Platelet Estimate Giant Platelets Hypochromasia Microcytosis ABG pH ABG pCO2 ABG pO2 ABG HCO3 ABG Total CO2 ABG O2 Saturation ABG Base Excess FiO2 Sodium 132 L Potassium 4.5 Chloride 97 L Carbon Dioxide 21 Anion Gap 18.5 H BUN 69 H Creatinine 5.00 H GFR Calculation 13 BUN/Creatinine Ratio 13.00 Glucose 392 H POC Glucose 436 H 389 H Calculated Osmolality 299.5 Calcium 7.6 L Magnesium 2.5 H Blood Type Antibody Screen Crossmatch
--- NOTE | 2017-04-15 11:16 | Hospitalist Progress Note ---
Assessment and Plan (1) Respiratory failure Status: Acute Assessment and plan: Fio2 down to 60%, cont rocephin and levaquin, cont duonebs, steroids. Patient seen by Dr Castellanos who feels that he is not ready to wean Current Visit: Yes (2) Pericardial effusion Status: Acute Assessment and plan: echo showed moderate pericardial effusion Current Visit: Yes (3) Bilateral pleural effusion Status: Acute Assessment and plan: cont dialysis in hopes of improving these effusions, may need to tap when off the vent Current Visit: Yes (4) Diabetes Status: Chronic Assessment and plan: cont tpn, bs over 400, asked nursing to give 7 units IV regular insulin, cont lantus 30 units and high dose isc Current Visit: No Qualifiers: Diabetes mellitus type: type 2 (5) Atrial fibrillation Problem details: Paroxysmal; early postoperative period patient has maintained normal sinus rhythm. 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 Patient is receiving treatment dose subQ Lovenox Status: Chronic Assessment and plan: Eliquis on hold due to bleeding Current Visit: No (6) S/P CABG (coronary artery bypass graft) Problem details: Three-vessel coronary artery disease; internal mammary graft to the anterior descending coronary artery and saphenous vein graft to the obtuse marginal and right coronary arteries 04/02/2017 (postop day 3). Status : Chronic Assessment and plan: ASA 81 mg po day. Current Visit: No (7) Anemia Problem details: Multifactorial including chronic disease and acute surgical blood loss. Patient remains hemodynamically stable. Continue monitoring. There is no indication for immediate blood product transfusion at present. Status: Acute Assessment and plan: hgb improved to 10.9 Current Visit: No (8) Acute kidney injury Problem details: Related to suspected intravascular volume depletion. IV Lasix dose discontinued earlier today. Recheck BMP in a.m. Status: Acute Assessment and plan: cont dialysis Current Visit: No (9) Ileus Status: Acute Assessment and plan: still has diminished bowel sounds and no bowel movement, dulcolax supp. Current Visit: Yes (10) Hypotension Status: Acute Assessment and plan: pressors given only during dialysis Current Visit: Yes (11) UGI bleed Status: Acute Assessment and plan: Dr. Vicente doing egd this morning, hgb better today, cont protonix bid Current Visit: Yes Hospitalist: Subjective Interval history: patient was dialyzed yesterday removing 2300 ml of fluid, Had to go on neosynephrine briefly due to low blood pressure but then was weaned off. He reports now pain today. UO still dark and diminished. Exam - Constitutional Vitals: Period Temp Pulse Resp BP Sys/Guzman Pulse Ox Last 24 Hr 97.2 F-98.1 F 62-86 16-27 108-143/60-96 91-96 Exam: Heart Rate-[IRR] Lungs-clear, diminished ] GI-[diminished bowel sounds, nontender, less distended Ext-[anasarca improving with dialysis ] Neuro alert and oriented, following commands. reports no pain psych normal mood and affect General [no acute distress] Results - Labs CBC & BMP: 04/15/17 04:13 04/15/17 04:13 Lab Results: I have reviewed the past 24 hour labs - Diagnostic Findings Procedure: Chest x-ray: report reviewed by me (bilateral opacities, left greater than right )
[2017-04-15] MEDS ORDERED: BISACODYL 10 MG SUPP RECTAL PRN (11:17)
[2017-04-15] MEDS ORDERED: ASPIRIN EC 81 MG TABLET PO SCH (11:30)
--- NOTE | 2017-04-15 13:57 | History and Physical Update ---
History and Physical Update - History and Physical H&P was reviewed, the patient examined and there: are no changes in the patients condition since last H&P was completed. - Physical Exam Mental Status: other (Alert, responsive on ventilator) Heart: regular rate and rhythm Lung: clear to auscultation Abdomen: within normal limits Vitals: within normal limits
--- NOTE | 2017-04-15 14:02 | Operative Note ---
Date of procedure: 04/15/17 Pre-op diagnosis: Upper GI bleeding/hematemesis Procedure: Procedure: Esophagogastroduodenoscopy Brief clinical abstract: Patient is a 67-year-old male admitted after cardiac arrest with bradycardia. He was resuscitated and remains on the ventilator requiring dialysis for acute renal failure. Patient has had upper GI bleeding with bright red bloody NG aspirate requiring transfusion. Indication for procedure: Upper GI bleeding Endoscopic findings:[After informed consent was obtained, the patient was placed in the left lateral decubitus position. Nasogastric tube was removed. The gastroscope was inserted in the upper esophagus under direct vision with no resistance encountered. Esophageal mucosa appeared normal down to the level just at the EG junction. There was a longitudinal ulcer approximately 2 cm in length in the distal esophagus and on the opposite wall an area of subepithelial hemorrhage. No visible vessel or adherent clot was noted. Patient has a small hiatal hernia. The endoscope was advanced in the stomach which was carefully examined including retroflexed view of the cardia and fundus. Just on the gastric side of the EG junction there was also another approximately 1 cm long ulcer and quite a bit of subepithelial hemorrhage. No blood was noted in the stomach. There were scattered areas of subepithelial hemorrhage in the body of the stomach which appeared to be related to nasogastric tube trauma. The pyloric channel, duodenal bulb, second and third portion of the duodenum were normal. The endoscope was withdrawn. Nasogastric tube was replaced in the left nares with confirmation endoscopically of its placement in the antrum of the stomach. The endoscope was then removed. He appeared to tolerate the procedure well. Impression: #1 Liza-Meza tear-appears to be source of bleeding; appearance suggests low risk of further significant bleeding #2 small hiatal hernia #3 GE junction ulcer-appears to be likely related to vomiting Recommendations: Continue twice daily PPI therapy for now. May feed through nasogastric tube. I will sign off. Please call if needed. Anesthesia: MAC Surgeon / Physician: Carlos Vicente Estimated blood loss: none Specimens: none sent Condition: stable Disposition: post procedure unit Results - Labs CBC & BMP: 04/15/17 04:13 04/15/17 04:13 Discharge Plan - Discharge Medications No Action diphenhydrAMINE CAP [Benadryl Cap] 25 mg PO Q6H PRN PRN Reason: Itching Methocarbamol Tab [Robaxin Tab] 750 mg PO DAILY PRN PRN Reason: Muscle Spasm Lidocaine 5% Patch [Lidoderm 5% Patch] 1 patch TRANSDERM DAILY PRN PRN Reason: Pain Diphenoxylate/Atrop 2.5-0.025 [Lomotil Tab] 2 tablet PO Q6H PRN PRN Reason: Diarrhea Acyclovir [Zovirax Cap/Tab] 400 mg PO 5X DAILY PRN PRN Reason: FEVER BLISTERS [place]-3 Fatty Acids [Fish Oil] 1,000 mg PO DAILY Apixaban [Eliquis] 5 mg PO BID Zolpidem Tartrate [Ambien Cr] 12.5 mg PO BEDTIME Magnesium Chloride [Slow Mag] 64 mg PO BID Aspirin [Ecotrin] 81 mg PO BEDTIME Vitamin E 400 unit PO DAILY Glimepiride [Amaryl] 4 mg PO BID W/MEALS Gemfibrozil 600 mg PO BID metFORMIN [Glucophage] 1,000 mg PO BID W/MEALS Esomeprazole Magnesium [Nexium] 40 mg PO BEDTIME Multivit-Min/FA/Lutein/Zeaxant [Icaps Mv Tablet] 1 tablet PO DAILY Furosemide 20 mg PO DAILY Gabapentin 300 mg PO BID dilTIAZem HCl [Diltiazem ER (24 hr)] 120 mg PO BID Lisinopril [Lisinopril] 20 mg PO DAILY Hydrocodone/Acetaminophen [Lortab 10-325 mg Tablet] 1 each PO Q8H PRN PRN Reason: Pain Rosuvastatin Calcium [Crestor] 40 mg PO BEDTIME Carvedilol [Coreg] 6.25 mg PO BID Amiodarone Tab [Cordarone Tab] 200 mg PO BID tablet Docusate Sodium Cap [Colace Cap] 100 mg PO DAILY capsule Ferrous Sulfate Tab [Feosol Original Tab] 325 mg PO DAILY tablet Magnesium Hydroxide Susp [Milk of Magnesia] 30 ml PO Q6H PRN PRN Reason: Constipation Multivitamin (Ocuvite) [Ocuvite] 1 tablet PO DAILY tablet sitaGLIPtin [Januvia] 100 mg PO DAILY tablet Insulin Glargine,Hum.rec.anlog [Lantus SoloStar] 10 units PO QPM - Follow Up or Referral - Forms/Instructions
[2017-04-15] MEDS: cefTRIAXone 1,000 MG in SODIUM CHLORIDE 0.9% 100 ML IV SCH (14:45)
[2017-04-15] MEDS: MULTIVITAMIN IV SCH (16:56)
[2017-04-15] MEDS: ELECTROLYTE IV SCH (16:56)
[2017-04-15] MEDS: [UNRECOGNIZED DRUG - OTHER] IV SCH (16:56)
[2017-04-15] MEDS: INSULIN REGULAR IV SCH (16:56)
--- NOTE | 2017-04-15 21:00 | General Surgery Progress Note ---
Assessment and Plan (1) Ileus Status: Acute Assessment and plan: The patient is awake and alert on the ventilator this morning. He denies abdominal pain. His abdomen is mildly distended but is nontender. He denies any tenderness or pain with palpation. I do not see evidence of an acute surgical process. I think ischemic bowel is very unlikely. 04/15: He denies abdominal pain and feels better. He has no complaints of abdominal pain and has no abdominal distention or tenderness. I do not think that there is an acute abdominal process. I am available if needed and please call if I can be of any further help. Current Visit: Yes Subjective Patient reports: Present: no new complaints, feels better. Absent: still having pain, nausea, vomiting Exam - Constitutional Vitals: Period Temp Pulse Resp BP Sys/Guzman Pulse Ox Last 24 Hr 97.6 F-98.1 F 62-89 16-27 114-143/60-96 90-98 General appearance: no acute distress - Respiratory Respiratory exam: Absent: accessory muscle use - GI/Abdominal GI/Abdominal exam: Present: soft. Absent: distended, tenderness Results - Labs CBC & BMP: 04/15/17 04:13 04/15/17 04:13 Lab Results: I have reviewed the past 24 hour labs
[2017-04-16] MEDS: ALBUTEROL/IPRATROPIUM 3 ML NEB RESP TX SCH ×4 (00:07→20:58)
[2017-04-16] MEDS: PROPOFOL 1,000 MG/100 ML BOTTLE IV SCH ×5 (01:02→20:20)
[2017-04-16] MEDS: INSULIN REGULAR 100 UNIT/ML SUBCUT SCH ×2 (03:42→08:35)
[2017-04-16 04:08] LABS: ABG Base Excess -5.3 MMOL/L (-2.5-2.5); ABG Oxygen Saturation 94.3 % (95-100); ABG PCO2 28.9 MM HG (35-48); ABG PH 7.409 (7.35-7.45); ABG PO2 74.9 MM HG (80-95); ABG TCO2 16.5 MMOL/L (23-27); Allen Test Positive; Pt O2 Delivery Device Ventilator
[2017-04-16] MEDS: MORPHINE 2 MG/1 ML SYRINGE IV PRN ×2 (05:27→19:53)
[2017-04-16 06:18] LABS: Basophils % 0.1 % (0.0-0.8); Hematocrit 30.6 VOL% (42.0-52.0); Hemoglobin 10.6 GM/DL (14.0-18.0); Immature Granulocytes % 1.1 %; Immature Granulocytes Absolute 0.11 #; Lymphocytes # 0.3 10*3/uL (1.4-4.0); Lymphocytes % 3.5 % (21.2-54.2); Mean Corpuscular HGB Conc 34.6 GM/DL (32-36); Mean Corpuscular Hemoglobin 29 PG (27-34); Mean Platelet Volume 12.2 FL (9.6-12.0); Monocytes # 0.6 10*3/uL (0.11-0.8); Monocytes % 6.3 % (1.7-12.7); Neutrophils # 8.8 10*3/uL (1.4-7.4); Platelet Count 108 T/CUMM (130-400); White Blood Count 9.8 T/CUMM (4-12)
[2017-04-16] MEDS: methylPREDNISolone SOD SUC 40 MG/1 ML VIAL IV SCH ×2 (06:34→19:32)
[2017-04-16 06:42] LABS: Lymphocytes 6 % (20-55); Segmented Neutrophils 92 % (50-85); Total Cells Counted 100
[2017-04-16 06:43] LABS: Burr Cells Slight; Hypochromasia 1+; Microcytosis 1+; Platelet Estimate Decreased
[2017-04-16 06:44] LABS: Magnesium 2.8 MG/DL (1.8-2.4); Osmolality,Calculated 316.7 MOS/KG (273-304); Potassium 4.6 MMOL/L (3.5-5.1)
[2017-04-16 06:52] LABS: Albumin 2.3 G/DL (3.4-5.0); Bilirubin,Direct 0.4 MG/DL (0.0-0.20); Bilirubin,Indirect 0.4 MG/DL (0.0-1.0); Bilirubin,Total 0.8 MG/DL (0.2-1.0); Total Protein 5.4 G/DL (6.4-8.3)
[2017-04-16 07:05] LABS: Phosphorous 6.5 MG/DL (2.5-4.9)
--- NOTE | 2017-04-16 07:40 | XRay Report ---
History short of breath Comparison 04/15/2017 Tip remains at T5. Other support devices grossly unchanged. Heart remains enlarged with moderate diffuse bilateral pulmonary edema and more focal consolidation and effusion at the left base. Small right effusion remains Impression: No significant change described above PROCEDURE INTERPRETED AT [facility] DEPARTMENT OF RADIOLOGY Final Report Signed by: Dr. Taryn Daniel
--- NOTE | 2017-04-16 08:15 | Pulmonology Progress Note ---
Pulmonary - PN: Subj Interval history: Patient is a 67-year-old white man that had bypass surgery several weeks ago. He came back in with respiratory distress and congestive heart failure. He does have a history of having COPD. He had to be intubated for his respiratory distress. He developed worsening renal failure and has required dialysis. He still has relative hypoxemia but is stable on the ventilator. He has had a fairly reasonable night. He did get an EGD yesterday. He is more alert today and looks comfortable. His chest x-ray is a little better but his PO2 is still on the low side. Exam (Progress Note) - Constitutional Vitals: Period Temp Pulse Resp BP Sys/Guzman Pulse Ox Last 24 Hr 97.7 F-98.1 F 63-89 16-20 108-165/60-93 90-98 Exam: General appearance: normal weight, no acute distress (The patient is responding and looks comfortable on the ventilator.) - Head Head exam: Present: normal inspection, normocephalic - Eye Eye exam: Present: EOMI. Absent: scleral icterus Pupils: Present: HEATHER - ENT ENT exam: Present: normal exam, other (He has an ET tube in place.) - Neck Neck exam: Present: normal inspection. Absent: lymphadenopathy, thyromegaly - Respiratory Respiratory exam: Present: He has good breath sounds bilaterally with good air movement but he does have some crackles toward the bases. - Cardiovascular Cardiovascular exam: Present: irregular rhythm, other (Chest wall wound is doing well.). Absent: gallop, systolic murmur - GI/Abdominal GI/Abdominal exam: Present: normal bowel sounds, soft. Absent: organomegaly, tenderness - Extremities Exam Extremities exam: Present: edema (He does have some swelling of his legs.). Absent: calf tenderness - Neurological Exam Neurological exam: Present: altered (He is more alert this morning and looks reasonably comfortable.) - Psychiatric Psychiatric exam: Absent: anxious - Skin Skin exam: Present: warm, dry Results - Labs CBC & BMP: 04/16/17 05:04 04/16/17 05:04 Labs: The PO2 is 74 with a PCO2 of 28 and a pH is 7.4. The patient is on 60%. - Diagnostic Findings Procedure: Chest x-ray: image reviewed by me, report reviewed by me (Chest x- ray still shows cardiomegaly with mild CHF but it is better.) Assessment and Plan (1) Diabetes Status: Chronic Assessment and plan: The patient's glucoses are in the 300 and 400 range and is getting insulin. Current Visit: No Qualifiers: Diabetes mellitus type: type 2 (2) Hypertension Problem details: Well-controlled postoperatively; continue current treatment with Coreg, diltiazem, and Lasix. Status: Chronic Assessment and plan: The patient blood pressure has been under reasonable control. He does appear to be hemodynamically stable. Current Visit: No Qualifiers: Hypertension type: essential hypertension Qualified Code(s): I10 - Essential (primary) hypertension (3) Atrial fibrillation Problem details: Paroxysmal; early postoperative period patient has maintained normal sinus rhythm. Systemic coagulation per consulting aircraft electrical systems specialist and cardiothoracic surgery service. Patient is receiving treatment dose subQ Lovenox Status: Chronic Assessment and plan: The patient's heart rate is stable. Current Visit: No (4) S/P CABG (coronary artery bypass graft) Problem details: Three-vessel coronary artery disease; internal mammary graft to the anterior descending coronary artery and saphenous vein graft to the obtuse marginal and right coronary arteries 04/02/2017 (postop day 3). Status : Chronic Assessment and plan: The patient had bypass surgery several weeks ago. Current Visit: No (5) Renal failure Status: Acute Assessment and plan: The patient will have dialysis again today. His volume status is improving. Current Visit: Yes (6) Respiratory failure Status: Acute Assessment and plan: The patient still has a large A-a O2 grade his PO2 is not that high. He is improving but is still not ready to come off the ventilator. Current Visit: Yes
--- NOTE | 2017-04-16 08:17 | Nephrology Progress Note ---
Nephrology - PN: Subj Interval history: Mr. Mathew is seen in follow-up of his acute renal failure. He is alert and stable on the ventilator with a well-maintained blood pressure 140 systolic. We removed about 2 L of fluid yesterday with ultrafiltration and today's BUN is 100 with a creatinine of 6. Chest x-ray still demonstrates some excess fluid and he is receiving 60 cc of hyperalimentation per hour this is his big source of fluid. We are going to hemodialyze today for 4 hours and remove as much fluid as he will tolerate I think he will let us have 3-4 kg. We are encouraged that his urine output is increasing. He is quite awake and oriented and I think is generally improving. Again our efforts are to try to decrease his fluid volume and to the extent that is compromising his respiratory function that may help him get off the ventilator. Exam (PN)-Nephrology - Vital Signs Vital signs: Period Temp Pulse Resp BP Sys/Guzman Pulse Ox Last 24 Hr 97.7 F-98.1 F 63-89 16-20 108-165/60-93 90-98 - Lab 04/16/17 05:04 04/16/17 05:04 Most recent lab results ABG pH 7.409 (7.35-7.45) 04/16/17 04:00 ABG pCO2 28.9 MM HG (35-48) L 04/16/17 04:00 ABG pO2 74.9 MM HG (80-95) L 04/16/17 04:00 ABG HCO3 20.0 MMOL/L (20-26) 04/16/17 04:00 ABG O2 Saturation 94.3 % (95-100) L 04/16/17 04:00 Calcium 8.0 MG/DL (8.5-10.1) L 04/16/17 05:04 Phosphorus 6.5 MG/DL (2.5-4.9) H 04/16/17 05:04 Magnesium 2.8 MG/DL (1.8-2.4) H 04/16/17 05:04
[2017-04-16] MEDS: PANTOPRAZOLE 40 MG VIAL IV SCH ×2 (08:35→21:06)
[2017-04-16] MEDS: INSULIN REGULAR DRIP 100 ML IV SCH ×2 (08:35→19:34)
[2017-04-16] MEDS: LEVOFLOXACIN INJ 250 MG in PREMIX 1 EACH IV SCH (08:36)
[2017-04-16] MEDS ORDERED: INSULIN REGULAR 100 UNIT/ML IV ONE (09:00)
--- NOTE | 2017-04-16 09:04 | Hospitalist Progress Note ---
Assessment and Plan (1) Respiratory failure Status: Acute Assessment and plan: Fio2 down to 60%, cont rocephin and levaquin, cont duonebs, steroids. Patient seen by Dr Castellanos who feels that he is not be ready for several days Current Visit: Yes (2) Pericardial effusion Status: Acute Assessment and plan: echo showed moderate pericardial effusion Current Visit: Yes (3) Bilateral pleural effusion Status: Acute Assessment and plan: cont dialysis in hopes of improving these effusions, may need to tap when off the vent Current Visit: Yes (4) Diabetes Status: Chronic Assessment and plan: cont tpn, bs over 400, asked nursing to give 7 units IV regular insulin bolus and start on an insulin drip Current Visit: No Qualifiers: Diabetes mellitus type: type 2 (5) Atrial fibrillation Problem details: Paroxysmal; early postoperative period patient has maintained normal sinus rhythm. Systemic coagulation per consulting top lift trimmer and cardiothoracic surgery service. Patient is receiving treatment dose subQ Lovenox Status: Chronic Assessment and plan: Eliquis on hold due to bleeding Current Visit: No (6) S/P CABG (coronary artery bypass graft) Problem details: Three-vessel coronary artery disease; internal mammary graft to the anterior descending coronary artery and saphenous vein graft to the obtuse marginal and right coronary arteries 04/02/2017 (postop day 3). Status : Chronic Assessment and plan: ASA 81 mg and dvt prop lovenox in am. Current Visit: No (7) Anemia Problem details: Multifactorial including chronic disease and acute surgical blood loss. Patient remains hemodynamically stable. Continue monitoring. There is no indication for immediate blood product transfusion at present. Status: Acute Assessment and plan: hgb improved to 10.6 Current Visit: No (8) Acute kidney injury Problem details: Related to suspected intravascular volume depletion. IV Lasix dose discontinued earlier today. Recheck BMP in a.m. Status: Acute Assessment and plan: cont dialysis today but is starting to make urine. Current Visit: No (9) Ileus Status: Acute Assessment and plan: still has diminished bowel sounds and no bowel movement, dulcolax supp. Current Visit: Yes (10) Hypotension Status: Acute Assessment and plan: pressors given only during dialysis Current Visit: Yes (11) UGI bleed Status: Acute Assessment and plan: s/p EGD #1 Liza-Meza tear-appears to be source of bleeding; appearance suggests low risk of further significant bleeding #2 small hiatal hernia #3 GE junction ulcer-appears to be likely related to vomiting Current Visit: Yes (12) Shock liver Status: Acute Assessment and plan: improving, will check ammonia liver Current Visit: Yes Hospitalist: Subjective Interval history: Blood sugars cannot be controlled with Lantus. We are switching him over to an insulin drip. I have given a 7 unit bolus. Spoke with Dr. Baldev Null and he plans to dialyze him again today. Dr. Castellanos feels that he needs several more days and he has not really started on his weaning trials. Still no bowel movement. Exam - Constitutional Vitals: Period Temp Pulse Resp BP Sys/Guzman Pulse Ox Last 24 Hr 97.7 F-98.1 F 63-89 16-20 108-165/60-93 90-98 Exam: Heart Rate-[IRR] Lungs-clear ] GI-[diminished bowel sounds, nontender, somewhat distended Ext-[anasarca improving with dialysis ] Neuro alert and oriented, following commands. reports no pain psych normal mood and affect General [no acute distress] Results - Labs CBC & BMP: 04/16/17 05:04 04/16/17 05:04 Lab Results: I have reviewed the past 24 hour labs Labs: Blood cultures 2 negative no growth sputum culture negative downgrowth - Diagnostic Findings Procedure: Chest x-ray: report reviewed by me (diffuse pulmonary edema )
--- NOTE | 2017-04-16 09:26 | Cardiology Progress Note ---
<Rula Cordova E - Last Filed: 04/16/17 09:14> Assessment and Plan - Time spent with patient Time spent with patient: Greater than 30 minutes (1) Respiratory failure Status: Acute Assessment and plan: SEE PLAN OF CARE LISTED BELOW Current Visit: Yes (2) Hyperkalemia Status: Resolved Assessment and plan: SEE PLAN OF CARE LISTED BELOW Current Visit: Yes (3) Acute kidney injury Problem details: Related to suspected intravascular volume depletion. IV Lasix dose discontinued earlier today. Recheck BMP in a.m. Status: Acute Assessment and plan: SEE PLAN OF CARE LISTED BELOW Current Visit: No (4) Anemia Problem details: Multifactorial including chronic disease and acute surgical blood loss. Patient remains hemodynamically stable. Continue monitoring. There is no indication for immediate blood product transfusion at present. Status: Acute Assessment and plan: SEE PLAN OF CARE LISTED BELOW Current Visit: No (5) Atrial fibrillation Problem details: Paroxysmal; early postoperative period patient has maintained normal sinus rhythm. Systemic coagulation per consulting adventure education teacher and cardiothoracic surgery service. Patient is receiving treatment dose subQ Lovenox Status: Chronic Assessment and plan: SEE PLAN OF CARE LISTED BELOW Current Visit: No (6) Coronary artery disease Status: Chronic Assessment and plan: SEE PLAN OF CARE LISTED BELOW Current Visit: No Qualifiers: Coronary Disease-Associated Artery/Lesion type: [place] artery [place] vs. transplanted heart: [place] heart Associated angina: without angina Qualified Code(s): I25.10 - Atherosclerotic heart disease of [place] coronary artery without angina pectoris (7) Diabetes Status: Chronic Assessment and plan: SEE PLAN OF CARE LISTED BELOW Current Visit: No Qualifiers: Diabetes mellitus type: type 2 (8) Dyslipidemia Problem details: Receiving Crestor. Check fasting lipid profile in a.m. Status: Chronic Assessment and plan: SEE PLAN OF CARE LISTED BELOW Current Visit: No (9) Hypertension Problem details: Well-controlled postoperatively; continue current treatment with Coreg, diltiazem, and Lasix. Status: Chronic Current Visit: No Qualifiers: Hypertension type: essential hypertension Qualified Code(s): I10 - Essential (primary) hypertension (10) S/P CABG (coronary artery bypass graft) Problem details: Three-vessel coronary artery disease; internal mammary graft to the anterior descending coronary artery and saphenous vein graft to the obtuse marginal and right coronary arteries 04/02/2017 (postop day 3). Status : Chronic Assessment and plan: SEE PLAN OF CARE LISTED BELOW Current Visit: No (11) Liza-Erwin tear Status: Acute Assessment and plan: SEE PLAN OF CARE LISTED BELOW Current Visit: Yes (12) GE junction ulcer Status: Acute Assessment and plan: SEE PLAN OF CARE LISTED BELOW Current Visit: Yes Cardiology - PN: Subj Interval history: TANK ASSEMBLER: DR. BAUTISTA SUMMARY: Mr. Mathew, 67WM, underwent elective cardiac catheterization April 01, 2017 revealing severe three-vessel CAD, EF 60%. April 02, 2017 underwent CABG 3 (SUE - LAD, SVG - OM, SVG - RCA). Tolerated the procedure well and without complication. He was discharged home in stable condition April 07, 2017. Patient returned to the ED of [facility] April 11, 2017 with nausea and vomiting. In the ER, he suddenly became bradycardic, hypotensive and required CPR, intubation and resuscitation. He was found to be hyperkalemic (potassium 6.6). EKG after CODE revealed bradycardia with a wide QRS complex. Cardiology was asked to evaluate for possible STEMI. It is felt this was NSTEMI with more of a metabolic ECG change with right wide QRS complex but without findings of acute LA. The repeat EKG revealed narrow QRS complex, no ST elevation. He has chronic atrial fibrillation. He is also found to be in acute renal failure. His only new medication at discharge was Amiodarone. Echo April 11, 2017: EF 50% without significant valvular abnormality. APRIL 13, 2017: This morning, patient is responsive. Abdomen firm with scant bowel sounds. Patient acknowledges significant abdominal pain. Creatinine has worsened at 5.3. ALT, AST elevated. Will repeat LFTs this morning. Hold lipid -lowering agent at this time. Post CABG anemia seems to be stable. He is going for CT Abdomen this morning. Will order EKG this morning. Few telemetry strips recorded over the past 48 hours. Will ask more frequently to be scanned in. Eliquis continues at 5 mg twice daily. At this point, I will hold Eliquis until patient's abdominal issues were addressed. Will further discuss with Dr. Bautista and await additional recommendations. APRIL 15, 2017: Overnight, Dopamine has been weaned off and his blood pressure has been stable. He is n.p.o. for an EGD this morning. Although he is on the ventilator, he wakes easily and follows commands. Creatinine minimally improved at 5.0 this morning. Anemia also stable. Continue to hold Eliquis, Amiodarone and lipid-lowering agent until acute issues have resolved. Remains in normal sinus rhythm. Wounds healing well without dehiscence or drainage. APRIL 16, 2017: Patient is on CPAP trials this morning. Underwent EGD yesterday for evaluation of bright red bloody NG aspirate requiring transfusion. Identified was Liza-Erwin tear, GE junction ulcer noted. Per Dr. Vicente, recommend waiting 48 hours post EGD before restarting Eliquis (this will be April 17, 2017). In atrial fibrillation this morning, rate controlled. Scheduled to undergo 3-4 hours dialysis today, creatinine up to 6.0 this morning. Some improvement is noted. Hopefully he will be extubated soon. Will add low-dose beta-veronika this morning. When LFTs improve, restart amiodarone. Will further discuss with Dr. Young and await additional recommendations. ASSESSMENT/PLAN: 1. RESPIRATORY FAILURE - intubated, continue current plan of care. Pulmonary assisting. Now on CPAP trials 2. HYPERKALEMIA - resolved. 3. CAD - 3VCAD now status post revascularization. Aspirin on hold. Starting beta-veronika this morning. Holding SANTOS inhibitor due to acute kidney injury. Holding lipid-lowering agent due elevated AST, ALT. 4. S/P CABG - SUE - LAD, SVG - OM, SVG - RCA. Continue current plan of care 5. HYPERTENSION - usually well controlled. 6. DYSLIPIDEMIA - LDL at goal (30) during last hospital stay. Holding lipid- lowering agent at this point. 7. ATRIAL FIBRILLATION - holding Amiodarone until acute issues resolved. This morning, atrial fib, rate controlled. Restart Eliquis Thursday evening if possible. 8. DIABETES - Hospitalist has been instrumental in better controlling diabetes 9. ANEMIA - stable, continue to follow closely 10. ACUTE KIDNEY INJURY - creatinine worse overnight. HD today. Avoiding nephrotoxic agents 11. ABDOMINAL DISTENTION, PAIN - see EGD report. Not thought to be related to ischemic bowel. 12. LIZA-ERWIN TEAR, GE JUNCTION ULCER - holding Eliquis until Thursday afternoon if possible. Exam (Progress Note) - Constitutional Vitals: Period Temp Pulse Resp BP Sys/Guzman Pulse Ox Last 24 Hr 97.7 F-98.1 F 63-89 16-20 108-165/60-93 90-98 Exam: General: [Appears to be comfortable. Cooperative. ] HEENT: [PERRL, normocephalic, atraumatic. Mucous membranes moist. No jaundice noted. Conjunctiva moist and clear, sclerae anicteric] Neck: Unable to assess for JVD due to habitus. No carotid bruit appreciated Cardiac: [Irregularly irregular rhythm, controlled rate.] [No obvious murmur rub or gallop.] Sternotomy incision healing well without dehiscence or drainage Lungs: [Clear to auscultation without accessory muscle use to assist the respiratory pattern.] Symmetrical chest wall movements noted. Abdomen: Good, firm, sluggish bowel sounds. Tender to touch. Musculoskeletal: No fluid collection. Decreased range of motion is noted. Extremities: No clubbing, cyanosis noted. [ No edema noted.] Upper extremity pulses 2+. Lower extremity pulses 2+. Bilateral lower extremity incision is healing well without dehiscence or drainage. . Skin: No unusual lesions or rashes. No skin breakdown appreciated. Neuro: Awakes, pulse commands appropriately. Moves all extremities well without hemiparesis or paralysis. No essential tremor is appreciated. Result/EKG - Labs CBC & BMP: 04/16/17 05:04 04/16/17 05:04 Lab Results: I have reviewed the past 24 hour labs Labs: Laboratory Results - last 24 hr 04/15/17 04/15/17 04/15/17 11:22 18:06 19:43 WBC RBC Hgb Hct MCV MCH MCHC RDW Plt Count MPV Neut % (Auto) Lymph % (Auto) [place] % (Auto) Eos % (Auto) Baso % (Auto) Neut # (Auto) Lymph # (Auto) [place] # (Auto) Eos # (Auto) Baso # (Auto) Total Counted Immature Gran % Nucleated RBC % Immature Gran # Segmented Neutrophils Lymphocytes Monocytes Nucleated RBCs # Platelet Estimate Hypochromasia Microcytosis [place] Cells Morphology Comment ABG pH ABG pCO2 ABG pO2 ABG HCO3 ABG Total CO2 ABG O2 Saturation ABG Base Excess FiO2 Sodium Potassium Chloride Carbon Dioxide Anion Gap BUN Creatinine GFR Calculation BUN/Creatinine Ratio Glucose POC Glucose 389 H 444 H 360 H Calculated Osmolality Calcium Phosphorus Magnesium Total Bilirubin Direct Bilirubin Indirect Bilirubin AST ALT Alkaline Phosphatase Total Protein Albumin Prealbumin Triglycerides 04/15/17 04/16/17 04/16/17 23:17 01:28 03:30 WBC RBC Hgb Hct MCV MCH MCHC RDW Plt Count MPV Neut % (Auto) Lymph % (Auto) [place] % (Auto) Eos % (Auto) Baso % (Auto) Neut # (Auto) Lymph # (Auto) [place] # (Auto) Eos # (Auto) Baso # (Auto) Total Counted Immature Gran % Nucleated RBC % Immature Gran # Segmented Neutrophils Lymphocytes Monocytes Nucleated RBCs # Platelet Estimate Hypochromasia Microcytosis [place] Cells Morphology Comment ABG pH ABG pCO2 ABG pO2 ABG HCO3 ABG Total CO2 ABG O2 Saturation ABG Base Excess FiO2 Sodium Potassium Chloride Carbon Dioxide Anion Gap BUN Creatinine GFR Calculation BUN/Creatinine Ratio Glucose POC Glucose 412 H 393 H 418 H Calculated Osmolality Calcium Phosphorus Magnesium Total Bilirubin Direct Bilirubin Indirect Bilirubin AST ALT Alkaline Phosphatase Total Protein Albumin Prealbumin Triglycerides 04/16/17 04/16/17 04/16/17 04:00 05:04 05:04 WBC RBC Hgb Hct MCV MCH MCHC RDW Plt Count MPV Neut % (Auto) Lymph % (Auto) [place] % (Auto) Eos % (Auto) Baso % (Auto) Neut # (Auto) Lymph # (Auto) [place] # (Auto) Eos # (Auto) Baso # (Auto) Total Counted Immature Gran % Nucleated RBC % Immature Gran # Segmented Neutrophils Lymphocytes Monocytes Nucleated RBCs # Platelet Estimate Hypochromasia Microcytosis [place] Cells Morphology Comment ABG pH 7.409 ABG pCO2 28.9 L ABG pO2 74.9 L ABG HCO3 20.0 ABG Total CO2 16.5 L ABG O2 Saturation 94.3 L ABG Base Excess -5.3 L FiO2 60.00 Sodium Potassium Chloride Carbon Dioxide Anion Gap BUN Creatinine GFR Calculation BUN/Creatinine Ratio Glucose POC Glucose Calculated Osmolality Calcium Phosphorus Magnesium Total Bilirubin 0.80 Direct Bilirubin 0.40 H Indirect Bilirubin 0.4 AST 64 H ALT 734 H Alkaline Phosphatase 72 Total Protein 5.4 L Albumin 2.3 L Prealbumin 27.1 Triglycerides 04/16/17 04/16/17 04/16/17 05:04 05:04 05:04 WBC 9.8 RBC 3.60 L Hgb 10.6 L Hct 30.6 L MCV 85.0 L MCH 29 MCHC 34.6 RDW 15.0 Plt Count 108 L MPV 12.2 H Neut % (Auto) 89.0 H Lymph % (Auto) 3.[address] [place] % (Auto) 6.3 Eos % (Auto) 0.0 Baso % (Auto) 0.1 Neut # (Auto) 8.8 H Lymph # (Auto) 0.[address] [place] # (Auto) 0.6 Eos # (Auto) 0.0 Baso # (Auto) 0.0 Total Counted 100 Immature Gran % 1.1 Nucleated RBC % 0.0 Immature Gran # 0.11 Segmented Neutrophils 92 H Lymphocytes 6 L Monocytes 2 Nucleated RBCs # 0.00 Platelet Estimate Decreased Hypochromasia 1+ Microcytosis 1+ [place] Cells Slight Morphology Comment ABG pH ABG pCO2 ABG pO2 ABG HCO3 ABG Total CO2 ABG O2 Saturation ABG Base Excess FiO2 Sodium 131 L Potassium 4.6 Chloride 97 L Carbon Dioxide 20 L Anion Gap 18.6 H BUN 107 H Creatinine 6.00 H GFR Calculation 10 BUN/Creatinine Ratio 17.00 Glucose 472 H POC Glucose Calculated Osmolality 316.7 H Calcium 8.0 L Phosphorus 6.5 H Magnesium 2.8 H Total Bilirubin Direct Bilirubin Indirect Bilirubin AST ALT Alkaline Phosphatase Total Protein Albumin Prealbumin Triglycerides 224 H 04/16/17 04/16/17 04/16/17 06:04 08:00 09:08 WBC RBC Hgb Hct MCV MCH MCHC RDW Plt Count MPV Neut % (Auto) Lymph % (Auto) [place] % (Auto) Eos % (Auto) Baso % (Auto) Neut # (Auto) Lymph # (Auto) [place] # (Auto) Eos # (Auto) Baso # (Auto) Total Counted Immature Gran % Nucleated RBC % Immature Gran # Segmented Neutrophils Lymphocytes Monocytes Nucleated RBCs # Platelet Estimate Hypochromasia Microcytosis [place] Cells Morphology Comment ABG pH ABG pCO2 ABG pO2 ABG HCO3 ABG Total CO2 ABG O2 Saturation ABG Base Excess FiO2 Sodium Potassium Chloride Carbon Dioxide Anion Gap BUN Creatinine GFR Calculation BUN/Creatinine Ratio Glucose POC Glucose 413 H 478 H 439 H Calculated Osmolality Calcium Phosphorus Magnesium Total Bilirubin Direct Bilirubin Indirect Bilirubin AST ALT Alkaline Phosphatase Total Protein Albumin Prealbumin Triglycerides - Diagnostic Findings Procedure: Chest x-ray: report reviewed by me - EKG EKG results: interpreted by ks EKG shows: atrial fibrillation <Severino Bautista - Last Filed: 04/16/17 15:14> Assessment and Plan (1) Hypotension Status: Acute Current Visit: Yes (2) Renal failure Status: Acute Current Visit: Yes (3) Anemia Problem details: Multifactorial including chronic disease and acute surgical blood loss. Patient remains hemodynamically stable. Continue monitoring. There is no indication for immediate blood product transfusion at present. Status: Acute Current Visit: No (4) Atrial fibrillation Problem details: Paroxysmal; early postoperative period patient has maintained normal sinus rhythm. Systemic coagulation per consulting adventure education teacher and cardiothoracic surgery service. Patient is receiving treatment dose subQ Lovenox Status: Chronic Current Visit: No (5) Coronary artery disease Status: Chronic Current Visit: No Qualifiers: Coronary Disease-Associated Artery/Lesion type: [place] artery [place] vs. transplanted heart: [place] heart Associated angina: without angina Qualified Code(s): I25.10 - Atherosclerotic heart disease of [place] coronary artery without angina pectoris (6) S/P CABG (coronary artery bypass graft) Problem details: Three-vessel coronary artery disease; internal mammary graft to the anterior descending coronary artery and saphenous vein graft to the obtuse marginal and right coronary arteries 04/02/2017 (postop day 3). Status : Chronic Current Visit: No Exam (Progress Note) - Constitutional Vitals: Period Temp Pulse Resp BP Sys/Guzman Pulse Ox Last 24 Hr 97.6 F-98.1 F 63-93 13-20 108-165/65-93 90-98 Result/EKG - Labs CBC & BMP: 04/16/17 05:04 04/16/17 05:04 Labs: Laboratory Results - last 24 hr 04/15/17 04/15/17 04/15/17 18:06 19:43 23:17 WBC RBC Hgb Hct MCV MCH MCHC RDW Plt Count MPV Neut % (Auto) Lymph % (Auto) [place] % (Auto) Eos % (Auto) Baso % (Auto) Neut # (Auto) Lymph # (Auto) [place] # (Auto) Eos # (Auto) Baso # (Auto) Total Counted Immature Gran % Nucleated RBC % Immature Gran # Segmented Neutrophils Lymphocytes Monocytes Nucleated RBCs # Platelet Estimate Hypochromasia Microcytosis [place] Cells Morphology Comment ABG pH ABG pCO2 ABG pO2 ABG HCO3 ABG Total CO2 ABG O2 Saturation ABG Base Excess FiO2 Sodium Potassium Chloride Carbon Dioxide Anion Gap BUN Creatinine GFR Calculation BUN/Creatinine Ratio Glucose POC Glucose 444 H 360 H 412 H Calculated Osmolality Calcium Phosphorus Magnesium Total Bilirubin Direct Bilirubin Indirect Bilirubin AST ALT Alkaline Phosphatase Total Protein Albumin Prealbumin Triglycerides 04/16/17 04/16/17 04/16/17 01:28 03:30 04:00 WBC RBC Hgb Hct MCV MCH MCHC RDW Plt Count MPV Neut % (Auto) Lymph % (Auto) [place] % (Auto) Eos % (Auto) Baso % (Auto) Neut # (Auto) Lymph # (Auto) [place] # (Auto) Eos # (Auto) Baso # (Auto) Total Counted Immature Gran % Nucleated RBC % Immature Gran # Segmented Neutrophils Lymphocytes Monocytes Nucleated RBCs # Platelet Estimate Hypochromasia Microcytosis [place] Cells Morphology Comment ABG pH 7.409 ABG pCO2 28.9 L ABG pO2 74.9 L ABG HCO3 20.0 ABG Total CO2 16.5 L ABG O2 Saturation 94.3 L ABG Base Excess -5.3 L FiO2 60.00 Sodium Potassium Chloride Carbon Dioxide Anion Gap BUN Creatinine GFR Calculation BUN/Creatinine Ratio Glucose POC Glucose 393 H 418 H Calculated Osmolality Calcium Phosphorus Magnesium Total Bilirubin Direct Bilirubin Indirect Bilirubin AST ALT Alkaline Phosphatase Total Protein Albumin Prealbumin Triglycerides 04/16/17 04/16/17 04/16/17 05:04 05:04 05:04 WBC 9.8 RBC 3.60 L Hgb 10.6 L Hct 30.6 L MCV 85.0 L MCH 29 MCHC 34.6 RDW 15.0 Plt Count 108 L MPV 12.2 H Neut % (Auto) 89.0 H Lymph % (Auto) 3.[address] [place] % (Auto) 6.3 Eos % (Auto) 0.0 Baso % (Auto) 0.1 Neut # (Auto) 8.8 H Lymph # (Auto) 0.[address] [place] # (Auto) 0.6 Eos # (Auto) 0.0 Baso # (Auto) 0.0 Total Counted 100 Immature Gran % 1.1 Nucleated RBC % 0.0 Immature Gran # 0.11 Segmented Neutrophils 92 H Lymphocytes 6 L Monocytes 2 Nucleated RBCs # 0.00 Platelet Estimate Decreased Hypochromasia 1+ Microcytosis 1+ [place] Cells Slight Morphology Comment ABG pH ABG pCO2 ABG pO2 ABG HCO3 ABG Total CO2 ABG O2 Saturation ABG Base Excess FiO2 Sodium Potassium Chloride Carbon Dioxide Anion Gap BUN Creatinine GFR Calculation BUN/Creatinine Ratio Glucose POC Glucose Calculated Osmolality Calcium Phosphorus Magnesium Total Bilirubin 0.80 Direct Bilirubin 0.40 H Indirect Bilirubin 0.4 AST 64 H ALT 734 H Alkaline Phosphatase 72 Total Protein 5.4 L Albumin 2.3 L Prealbumin 27.1 Triglycerides 04/16/17 04/16/17 04/16/17 05:04 05:04 06:04 WBC RBC Hgb Hct MCV MCH MCHC RDW Plt Count MPV Neut % (Auto) Lymph % (Auto) [place] % (Auto) Eos % (Auto) Baso % (Auto) Neut # (Auto) Lymph # (Auto) [place] # (Auto) Eos # (Auto) Baso # (Auto) Total Counted Immature Gran % Nucleated RBC % Immature Gran # Segmented Neutrophils Lymphocytes Monocytes Nucleated RBCs # Platelet Estimate Hypochromasia Microcytosis [place] Cells Morphology Comment ABG pH ABG pCO2 ABG pO2 ABG HCO3 ABG Total CO2 ABG O2 Saturation ABG Base Excess FiO2 Sodium 131 L Potassium 4.6 Chloride 97 L Carbon Dioxide 20 L Anion Gap 18.6 H BUN 107 H Creatinine 6.00 H GFR Calculation 10 BUN/Creatinine Ratio 17.00 Glucose 472 H POC Glucose 413 H Calculated Osmolality 316.7 H Calcium 8.0 L Phosphorus 6.5 H Magnesium 2.8 H Total Bilirubin Direct Bilirubin Indirect Bilirubin AST ALT Alkaline Phosphatase Total Protein Albumin Prealbumin Triglycerides 224 H 04/16/17 04/16/17 04/16/17 08:00 09:08 10:07 WBC RBC Hgb Hct MCV MCH MCHC RDW Plt Count MPV Neut % (Auto) Lymph % (Auto) [place] % (Auto) Eos % (Auto) Baso % (Auto) Neut # (Auto) Lymph # (Auto) [place] # (Auto) Eos # (Auto) Baso # (Auto) Total Counted Immature Gran % Nucleated RBC % Immature Gran # Segmented Neutrophils Lymphocytes Monocytes Nucleated RBCs # Platelet Estimate Hypochromasia Microcytosis [place] Cells Morphology Comment ABG pH ABG pCO2 ABG pO2 ABG HCO3 ABG Total CO2 ABG O2 Saturation ABG Base Excess FiO2 Sodium Potassium Chloride Carbon Dioxide Anion Gap BUN Creatinine GFR Calculation BUN/Creatinine Ratio Glucose POC Glucose 478 H 439 H 311 H Calculated Osmolality Calcium Phosphorus Magnesium Total Bilirubin Direct Bilirubin Indirect Bilirubin AST ALT Alkaline Phosphatase Total Protein Albumin Prealbumin Triglycerides 04/16/17 04/16/1704/16/17 11:03 12:12 13:03 WBC RBC Hgb Hct MCV MCH MCHC RDW Plt Count MPV Neut % (Auto) Lymph % (Auto) [place] % (Auto) Eos % (Auto) Baso % (Auto) Neut # (Auto) Lymph # (Auto) [place] # (Auto) Eos # (Auto) Baso # (Auto) Total Counted Immature Gran % Nucleated RBC % Immature Gran # Segmented Neutrophils Lymphocytes Monocytes Nucleated RBCs # Platelet Estimate Hypochromasia Microcytosis [place] Cells Morphology Comment ABG pH ABG pCO2 ABG pO2 ABG HCO3 ABG Total CO2 ABG O2 Saturation ABG Base Excess FiO2 Sodium Potassium Chloride Carbon Dioxide Anion Gap BUN Creatinine GFR Calculation BUN/Creatinine Ratio Glucose POC Glucose 279 H 233 H 278 H Calculated Osmolality Calcium Phosphorus Magnesium Total Bilirubin Direct Bilirubin Indirect Bilirubin AST ALT Alkaline Phosphatase Total Protein Albumin Prealbumin Triglycerides 04/16/17 14:03 WBC RBC Hgb Hct MCV MCH MCHC RDW Plt Count MPV Neut % (Auto) Lymph % (Auto) [place] % (Auto) Eos % (Auto) Baso % (Auto) Neut # (Auto) Lymph # (Auto) [place] # (Auto) Eos # (Auto) Baso # (Auto) Total Counted Immature Gran % Nucleated RBC % Immature Gran # Segmented Neutrophils Lymphocytes Monocytes Nucleated RBCs # Platelet Estimate Hypochromasia Microcytosis [place] Cells Morphology Comment ABG pH ABG pCO2 ABG pO2 ABG HCO3 ABG Total CO2 ABG O2 Saturation ABG Base Excess FiO2 Sodium Potassium Chloride Carbon Dioxide Anion Gap BUN Creatinine GFR Calculation BUN/Creatinine Ratio Glucose POC Glucose 239 H Calculated Osmolality Calcium Phosphorus Magnesium Total Bilirubin Direct Bilirubin Indirect Bilirubin AST ALT Alkaline Phosphatase Total Protein Albumin Prealbumin Triglycerides
--- NOTE | 2017-04-16 11:58 | Discharge Summary ---
Hospital Course - Hospital Course Hospital Course: Mr. Luis Mathew is a 67 year old black male with a history of gerd, htn, CVA, CAD, afib, peripheal neuropathy, dm, dyslipidemia, thyroid disorder, and copd presented that presented to the ED on 04/11 for further evaluation of nausea, vomiting, and diarrhea. Pt. had just been recently discharged on 04/07 after undergoing a CABG by Dr. Larry on 04/02 with SUE to the LAD, SVG to the OM, and S SVG to RCA. Pt. had been doing well at time of discharge and reportedly continued his progress at home up until the day before admission. The patient was noted to have become ill. He became nauseous, vomited, and was slightly short of breath as well. On arrival to the ED, pt became hypotensive and bradycardiac and required emergent CPR and subsequent intubation. Labs at the time revealed H&H 8/24.3, Na 129, K 6.6, BUN 50, creatinine 2.90, glucose 330, AST/ALT 182/187, troponin 0.145, lactic acid 4.6, and BNP of 239. Pt. was admitted to the hospitalist service and place in the ICU for close monitoring. The patient has a lengthy hospital stay. He was seen and evaluated by multiple services (Cardiology, Nephrology, Pulmonology, GI, and Surgery). Cardiology evaluated patient for possible STEMI on EKG that was determined to be an NSTEMI due to metabolic changes. Pulmonary managed vent settings for patient. He is currently still intubated but will be started on weaning trials in the following days. GI evaluated pt for GI bleed and he was found to have a Liza Meza tear which was discovered on EGD, hernia, and junction ulcer. UPdate:: he was etubated yesterday and had done well. He will go to LTAC today and continue with tube feedings for now while he gains strength. His and daughters are in agreement with the transfer now that he is extubated. His steroids have been cut in half today and his insulin increased. His glucose should be monitored carefully because he had some difficulty with both high and low sugar in the hospital. He remains on IV antibiotics. His gann is removed. He will be dialyzed prn by nephrology. He continues to make urine but has not dropped his creatinine. Discharge Plan - Discharge Data Disposition: Disch/Xfer to [facility] - Discharge Medications New Albuterol/Ipratropium Neb [Duoneb] 3 ml RESP TX RT Q6H Aspirin EC Tab 81 mg PO DAILY tablet cefTRIAXone [Rocephin] 1,000 mg IV Q24H vial Glucagon 1 mg IM PRN PRN vial PRN Reason: Hypoglycemia w/o IV access Heparin Inj 2,000 unit IV .FOR DIALYSIS vial HYDROcodone/ACETAMIN 5-325 [[place] 5-325] 1 tablet PO Q6H PRN #10 tablet PRN Reason: pain Levofloxacin Inj [Levaquin Inj] 250 mg IV Q48H methylPREDNISolone SOD SUC INJ [SoluMEDROL] 20 mg IV Q12H vial Ondansetron Inj [Zofran Inj] 4 mg IV Q4H PRN vial PRN Reason: Nausea Pantoprazole Inj [Protonix Inj] 40 mg IV BID vial Promethazine Inj [Phenergan Inj] 25 mg IV Q6H PRN vial PRN Reason: Nausea/Vomiting Sertraline [Zoloft] 25 mg PO DAILY tablet Insulin Glargine [Lantus] 40 unit SUBCUT DAILY #10 ml Acetaminophen Tab [Tylenol Tab] 650 mg PO Q4H PRN tablet PRN Reason: Fever, Headache, Mild Pain Apixaban [Eliquis] 2.5 mg PO BID #60 tablet Dextrose 50% [D50] 25 gm IV PRN PRN vial PRN Reason: Hypoglycemia with IV access Insulin Regular [HumuLIN R] See Protocol SUBCUT Q4H unit Metoprolol Tartrate Tab [Lopressor Tab] 50 mg PO BID tablet Discontinued diphenhydrAMINE CAP [Benadryl Cap] 25 mg PO Q6H PRN PRN Reason: Itching Methocarbamol Tab [Robaxin Tab] 750 mg PO DAILY PRN PRN Reason: Muscle Spasm Lidocaine 5% Patch [Lidoderm 5% Patch] 1 patch TRANSDERM DAILY PRN PRN Reason: Pain Diphenoxylate/Atrop 2.5-0.025 [Lomotil Tab] 2 tablet PO Q6H PRN PRN Reason: Diarrhea Acyclovir [Zovirax Cap/Tab] 400 mg PO 5X DAILY PRN PRN Reason: FEVER BLISTERS [place]-3 Fatty Acids [Fish Oil] 1,000 mg PO DAILY Apixaban [Eliquis] 5 mg PO BID Zolpidem Tartrate [Ambien Cr] 12.5 mg PO BEDTIME Magnesium Chloride [Slow Mag] 64 mg PO BID Aspirin [Ecotrin] 81 mg PO BEDTIME Vitamin E 400 unit PO DAILY Glimepiride [Amaryl] 4 mg PO BID W/MEALS Gemfibrozil 600 mg PO BID metFORMIN [Glucophage] 1,000 mg PO BID W/MEALS Esomeprazole Magnesium [Nexium] 40 mg PO BEDTIME Multivit-Min/FA/Lutein/Zeaxant [Icaps Mv Tablet] 1 tablet PO DAILY Furosemide 20 mg PO DAILY Gabapentin 300 mg PO BID dilTIAZem HCl [Diltiazem ER (24 hr)] 120 mg PO BID Lisinopril [Lisinopril] 20 mg PO DAILY Hydrocodone/Acetaminophen [Lortab 10-325 mg Tablet] 1 each PO Q8H PRN PRN Reason: Pain Rosuvastatin Calcium [Crestor] 40 mg PO BEDTIME Carvedilol [Coreg] 6.25 mg PO BID Amiodarone Tab [Cordarone Tab] 200 mg PO BID tablet Docusate Sodium Cap [Colace Cap] 100 mg PO DAILY capsule Ferrous Sulfate Tab [Feosol Original Tab] 325 mg PO DAILY tablet Magnesium Hydroxide Susp [Milk of Magnesia] 30 ml PO Q6H PRN PRN Reason: Constipation Multivitamin (Ocuvite) [Ocuvite] 1 tablet PO DAILY tablet sitaGLIPtin [Januvia] 100 mg PO DAILY tablet Insulin Glargine,Hum.rec.anlog [Lantus SoloStar] 10 units PO QPM - Follow Up or Referral - Forms/Instructions Instructions: Hemodialysis (GEN), Dialysis Diet (GEN) Exam - Constitutional Vitals: Period Temp Pulse Resp BP Sys/Guzman Pulse Ox Last 24 Hr 97.7 F-98.1 F 63-90 15-20 108-165/62-93 90-98 Discharge Results Procedures and tests throughout hospitalization: Pending Orders 04/11/17 14:36 Blood Culture Routine 04/16/17 08:57 XR KUB Routine 04/17/17 04:00 BMP w/ Mg [Basic Metabolic Panel w/Mg] IN AM CBC [Comp Blood Count Auto Diff] IN AM 04/20/17 04:00 Magnesium MOTH Phosphorous MOTH Prealbumin IN AM Triglycerides MOTH Labs on day of discharge: Labs from last 24 hours 04/16/17 04/16/17 04/16/17 11:03 10:07 09:08 WBC RBC Hgb Hct MCV MCH MCHC RDW Plt Count MPV Neut % (Auto) Lymph % (Auto) Cass % (Auto) Eos % (Auto) Baso % (Auto) Neut # (Auto) Lymph # (Auto) Cass # (Auto) Eos # (Auto) Baso # (Auto) Total Counted Immature Gran % Nucleated RBC % Immature Gran # Segmented Neutrophils Lymphocytes Monocytes Nucleated RBCs # Platelet Estimate Hypochromasia Microcytosis Caitlyn Cells Morphology Comment ABG pH ABG pCO2 ABG pO2 ABG HCO3 ABG Total CO2 ABG O2 Saturation ABG Base Excess FiO2 Sodium Potassium Chloride Carbon Dioxide Anion Gap BUN Creatinine GFR Calculation BUN/Creatinine Ratio Glucose POC Glucose 279 H 311 H 439 H Calculated Osmolality Calcium Phosphorus Magnesium Total Bilirubin Direct Bilirubin Indirect Bilirubin AST ALT Alkaline Phosphatase Total Protein Albumin Prealbumin Triglycerides 04/16/17 04/16/17 04/16/17 08:00 06:04 05:04 WBC RBC Hgb Hct MCV MCH MCHC RDW Plt Count MPV Neut % (Auto) Lymph % (Auto) Cass % (Auto) Eos % (Auto) Baso % (Auto) Neut # (Auto) Lymph # (Auto) Cass # (Auto) Eos # (Auto) Baso # (Auto) Total Counted Immature Gran % Nucleated RBC % Immature Gran # Segmented Neutrophils Lymphocytes Monocytes Nucleated RBCs # Platelet Estimate Hypochromasia Microcytosis Caitlyn Cells Morphology Comment ABG pH ABG pCO2 ABG pO2 ABG HCO3 ABG Total CO2 ABG O2 Saturation ABG Base Excess FiO2 Sodium Potassium Chloride Carbon Dioxide Anion Gap BUN Creatinine GFR Calculation BUN/Creatinine Ratio Glucose POC Glucose 478 H 413 H Calculated Osmolality Calcium Phosphorus 6.5 H Magnesium Total Bilirubin Direct Bilirubin Indirect Bilirubin AST ALT Alkaline Phosphatase Total Protein Albumin Prealbumin Triglycerides 224 H 04/16/17 04/16/17 04/16/17 05:04 05:04 05:04 WBC 9.8 RBC 3.60 L Hgb 10.6 L Hct 30.6 L MCV 85.0 L MCH 29 MCHC 34.6 RDW 15.0 Plt Count 108 L MPV 12.2 H Neut % (Auto) 89.0 H Lymph % (Auto) 3.5 L Cass % (Auto) 6.3 Eos % (Auto) 0.0 Baso % (Auto) 0.1 Neut # (Auto) 8.8 H Lymph # (Auto) 0.3 L Cass # (Auto) 0.6 Eos # (Auto) 0.0 Baso # (Auto) 0.0 Total Counted 100 Immature Gran % 1.1 Nucleated RBC % 0.0 Immature Gran # 0.11 Segmented Neutrophils 92 H Lymphocytes 6 L Monocytes 2 Nucleated RBCs # 0.00 Platelet Estimate Decreased Hypochromasia 1+ Microcytosis 1+ [place] Cells Slight Morphology Comment ABG pH ABG pCO2 ABG pO2 ABG HCO3 ABG Total CO2 ABG O2 Saturation ABG Base Excess FiO2 Sodium 131 L Potassium 4.6 Chloride 97 L Carbon Dioxide 20 L Anion Gap 18.6 H BUN 107 H Creatinine 6.00 H GFR Calculation 10 BUN/Creatinine Ratio 17.00 Glucose 472 H POC Glucose Calculated Osmolality 316.7 H Calcium 8.0 L Phosphorus Magnesium 2.8 H Total Bilirubin 0.80 Direct Bilirubin 0.40 H Indirect Bilirubin 0.4 AST 64 H ALT 734 H Alkaline Phosphatase 72 Total Protein 5.4 L Albumin 2.3 L Prealbumin Triglycerides 04/16/17 04/16/17 04/16/17 05:04 04:00 03:30 WBC RBC Hgb Hct MCV MCH MCHC RDW Plt Count MPV Neut % (Auto) Lymph % (Auto) Cass % (Auto) Eos % (Auto) Baso % (Auto) Neut # (Auto) Lymph # (Auto) Cass # (Auto) Eos # (Auto) Baso # (Auto) Total Counted Immature Gran % Nucleated RBC % Immature Gran # Segmented Neutrophils Lymphocytes Monocytes Nucleated RBCs # Platelet Estimate Hypochromasia Microcytosis Caitlyn Cells Morphology Comment ABG pH 7.409 ABG pCO2 28.9 L ABG pO2 74.9 L ABG HCO3 20.0 ABG Total CO2 16.5 L ABG O2 Saturation 94.3 L ABG Base Excess -5.3 L FiO2 60.00 Sodium Potassium Chloride Carbon Dioxide Anion Gap BUN Creatinine GFR Calculation BUN/Creatinine Ratio Glucose POC Glucose 418 H Calculated Osmolality Calcium Phosphorus Magnesium Total Bilirubin Direct Bilirubin Indirect Bilirubin AST ALT Alkaline Phosphatase Total Protein Albumin Prealbumin 27.1 Triglycerides 04/16/17 04/15/17 04/15/17 01:28 23:17 19:43 WBC RBC Hgb Hct MCV MCH MCHC RDW Plt Count MPV Neut % (Auto) Lymph % (Auto) Cass % (Auto) Eos % (Auto) Baso % (Auto) Neut # (Auto) Lymph # (Auto) Cass # (Auto) Eos # (Auto) Baso # (Auto) Total Counted Immature Gran % Nucleated RBC % Immature Gran # Segmented Neutrophils Lymphocytes Monocytes Nucleated RBCs # Platelet Estimate Hypochromasia Microcytosis Caitlyn Cells Morphology Comment ABG pH ABG pCO2 ABG pO2 ABG HCO3 ABG Total CO2 ABG O2 Saturation ABG Base Excess FiO2 Sodium Potassium Chloride Carbon Dioxide Anion Gap BUN Creatinine GFR Calculation BUN/Creatinine Ratio Glucose POC Glucose 393 H 412 H 360 H Calculated Osmolality Calcium Phosphorus Magnesium Total Bilirubin Direct Bilirubin Indirect Bilirubin AST ALT Alkaline Phosphatase Total Protein Albumin Prealbumin Triglycerides 04/15/17 18:06 WBC RBC Hgb Hct MCV MCH MCHC RDW Plt Count MPV Neut % (Auto) Lymph % (Auto) Cass % (Auto) Eos % (Auto) Baso % (Auto) Neut # (Auto) Lymph # (Auto) Cass # (Auto) Eos # (Auto) Baso # (Auto) Total Counted Immature Gran % Nucleated RBC % Immature Gran # Segmented Neutrophils Lymphocytes Monocytes Nucleated RBCs # Platelet Estimate Hypochromasia Microcytosis [place] Cells Morphology Comment ABG pH ABG pCO2 ABG pO2 ABG HCO3 ABG Total CO2 ABG O2 Saturation ABG Base Excess FiO2 Sodium Potassium Chloride Carbon Dioxide Anion Gap BUN Creatinine GFR Calculation BUN/Creatinine Ratio Glucose POC Glucose 444 H Calculated Osmolality Calcium Phosphorus Magnesium Total Bilirubin Direct Bilirubin Indirect Bilirubin AST ALT Alkaline Phosphatase Total Protein Albumin Prealbumin Triglycerides Preliminary micro results at discharge 04/11/17 14:36 Blood Culture - Preliminary Blood No growth at 3 days 04/11/17 14:36 Blood Culture - Preliminary Blood No growth at 3 days DS: Provider Date of admission: 04/11/17 08:27 Primary care physician: . No PCP Attending physician on admission: Singh Townsend MD Consults: 04/11/17 08:29 Consult to Physician [CONS] Routine Comment: Consulting Provider: Barron Johnson Jr. Consulting Provider Notified: Yes When should Consulting Provider be notified: Now Consult to Physician [CONS] Routine Comment: Consulting Provider: Karan Yeh When should Consulting Provider be notified: Now 04/11/17 16:20 Consult to Pastoral Services [CONS] Routine Comment: Pastoral Screen: Critical Diagnosis Pastoral Screen Source of Request: Family 04/13/17 08:04 Consult to Dietitian [CONS] Routine Reason for Dietitian: TF-Initiate/Manage 04/13/17 08:05 Consult to Physician [CONS] Routine Comment: bowel obstruction vs ileus Consulting Provider: Chris Gifford III. When should Consulting Provider be notified: Now Person Notified: Dr Balta MATTHEWS Date Notified: 04/13/17 Time Notified: 08:37 Consult Notification Comment: notified of consult 04/13/17 10:58 Consult to Physician [CONS] Routine Comment: large pericardial effusion Consulting Provider: Severino Mendieta 04/13/17 11:47 Consult to Physician [CONS] Routine Comment: dialysis catheter Consulting Provider: Jose Luis Castillo When should Consulting Provider be notified: Now 04/13/17 11:56 Consult to Dietitian [CONS] Routine Reason for Dietitian: TPN/PPN-Initiate/Manage 04/13/17 19:04 Consult to Physician [CONS] Routine Comment: acute gi Consulting Provider: Carlos Vicente When should Consulting Provider be notified: Now 04/15/17 13:57 Consult to Case Mgmt/Social Srvs [CONS] Routine Reason for Case Mgmt/Social Srvs: LTAC Consult Comment: CONSULT DEMARCUS, FOR POSSIBLE TRANSFER THURSDAY? Discharging clinician: Lalo Suárez NP
--- NOTE | 2017-04-16 12:14 | Dialysis Note ---
Dialysis Note - Dialysis Note Mr. Mathew is seen during his hemodialysis. He is doing well with dialysis. We are removing about 4 kg of fluid and his blood pressure is tolerating it well. Will reassess tomorrow and continue dialysis until he recovers renal function.
[2017-04-16] MEDS: cefTRIAXone 1,000 MG in SODIUM CHLORIDE 0.9% 100 ML IV SCH (13:57)
[2017-04-16] MEDS: METOPROLOL TARTRATE 25 MG TABLET PO SCH ×2 (13:57→21:06)
--- NOTE | 2017-04-16 15:31 | XRay Report ---
KUB. Indication: Decreased bowel sounds. No previous. The distal tip of a nasogastric tube projects over the area of the antrum of the stomach. There is very little bowel gas, but gas is seen at the rectum excluding obstruction. No distention of bowel. Surgical clips in the right upper quadrant. Atelectasis and pleural effusion at the left lung base. No abnormal calcifications over the renal outlines. Degenerative changes are noted within the spinal column and hips. Impression: There is very little bowel gas, but no evidence of obstruction. Pleural and parenchymal abnormality is present at the left lung base. Nasogastric tube appears to be in satisfactory position. PROCEDURE INTERPRETED AT [facility] [place] DEPARTMENT OF RADIOLOGY Final Report Signed by: Dr. Estephanie Daniel
--- NOTE | 2017-04-16 16:35 | XRay Report ---
Single view the chest. Indication: Endotracheal tube placement. Comparison: October 17, 2016, at 3:00 in the morning. The distal tip of an endotracheal tube is 3 cm above the scottie. The right IJ line is in satisfactory position. The distal tip of the nasogastric tube projects off the field of the film. The heart is enlarged. The pulmonary vasculature is prominent. There are bilateral basilar opacities and pleural effusions, worse on the left. Impression: No change in the lung fernandez. ET tube 3 cm above the scottie. PROCEDURE INTERPRETED AT [facility] DEPARTMENT OF RADIOLOGY Final Report Signed by: Dr. Estephanie Daniel
[2017-04-16] MEDS: [UNRECOGNIZED DRUG - OTHER] IV SCH (16:58)
[2017-04-16] MEDS: MULTIVITAMIN IV SCH (16:58)
[2017-04-16] MEDS: INSULIN REGULAR IV SCH (16:58)
[2017-04-16] MEDS: ELECTROLYTE IV SCH (16:58)
[2017-04-17] MEDS: ALBUTEROL/IPRATROPIUM 3 ML NEB RESP TX SCH ×4 (00:08→19:20)
[2017-04-17 03:47] LABS: ABG Base Excess -3.9 MMOL/L (-2.5-2.5); ABG HCO3 21.1 MMOL/L (20-26); ABG PCO2 30.2 MM HG (35-48); ABG PH 7.421 (7.35-7.45); ABG PO2 75.5 MM HG (80-95); ABG TCO2 17.7 MMOL/L (23-27); Allen Test Positive; Pt O2 Delivery Device Ventilator
[2017-04-17] MEDS: INSULIN REGULAR DRIP 100 ML IV SCH ×4 (05:00→22:49)
[2017-04-17 06:26] LABS: Eosinophils % 0.2 % (0.00-10.9); Hematocrit 31.7 VOL% (42.0-52.0); Hemoglobin 10.9 GM/DL (14.0-18.0); Immature Granulocytes % 1.1 %; Immature Granulocytes Absolute 0.12 #; Lymphocytes # 0.5 10*3/uL (1.4-4.0); Lymphocytes % 4.3 % (21.2-54.2); Mean Corpuscular HGB Conc 34.4 GM/DL (32-36); Mean Corpuscular Hemoglobin 29 PG (27-34); Mean Corpuscular Volume 85.4 FL (87-102); Mean Platelet Volume 11.9 FL (9.6-12.0); Monocytes # 0.7 10*3/uL (0.11-0.8); Neutrophils # 9.2 10*3/uL (1.4-7.4); Neutrophils % 87.4 % (38.7-73.9); Platelet Count 101 T/CUMM (130-400); Red Blood Count 3.71 MC/CUMM (3.8-5.5); White Blood Count 10.5 T/CUMM (4-12)
[2017-04-17] MEDS: methylPREDNISolone SOD SUC 40 MG/1 ML VIAL IV SCH ×2 (06:36→18:30)
[2017-04-17 06:46] LABS: Hypochromasia 1+; Lymphocytes 5 % (20-55); Microcytosis 1+; Segmented Neutrophils 91 % (50-85); Total Cells Counted 100
[2017-04-17 06:47] LABS: Burr Cells Slight; Platelet Estimate Decreased
[2017-04-17 07:06] LABS: Calcium 7.8 MG/DL (8.5-10.1); Magnesium 2.7 MG/DL (1.8-2.4); Osmolality,Calculated 298.1 MOS/KG (273-304); Potassium 4.3 MMOL/L (3.5-5.1)
--- NOTE | 2017-04-17 08:14 | XRay Report ---
XR chest 1V portable Indication: Respiratory failure on ventilator Comparison: Chest x-ray dated April 16, 2017 Technique: Single frontal view of the chest. Findings: Continued cardiomegaly status post sternotomy. Lines/tubes appear grossly unchanged. Diffuse hazy opacification remains throughout the bilateral lungs with bilateral pleural fluid. Visualized osseous and surrounding soft tissue structures appear grossly unchanged. IMPRESSION: No significant interval change. PROCEDURE INTERPRETED AT [facility] DEPARTMENT OF RADIOLOGY Final Report Signed by: Dr Jose Xiao
--- NOTE | 2017-04-17 08:41 | Dialysis Note ---
Dialysis Note - Dialysis Note Mr. Mathew is seen during his hemodialysis. Will dialyze today for 3 hours and remove about 3 kg of fluid. His blood pressure stable at 130 systolic. We will plan to dialyze again tomorrow and remove about 4 kg of fluid. He has begun to make urine and made about 500 cc yesterday. He is not dropped his creatinine yet but hopefully he will begin to do that in the next several days with continued urine output.
[2017-04-17] MEDS: MORPHINE 2 MG/1 ML SYRINGE IV PRN ×2 (08:45→21:16)
--- NOTE | 2017-04-17 08:48 | Cardiology Progress Note ---
Assessment and Plan - Time spent with patient Time spent with patient: Greater than 30 minutes (1) Respiratory failure Status: Acute Assessment and plan: SEE PLAN OF CARE LISTED BELOW Current Visit: Yes (2) Hyperkalemia Status: Resolved Assessment and plan: SEE PLAN OF CARE LISTED BELOW Current Visit: Yes (3) Acute kidney injury Problem details: Related to suspected intravascular volume depletion. IV Lasix dose discontinued earlier today. Recheck BMP in a.m. Status: Acute Assessment and plan: SEE PLAN OF CARE LISTED BELOW Current Visit: No (4) Anemia Problem details: Multifactorial including chronic disease and acute surgical blood loss. Patient remains hemodynamically stable. Continue monitoring. There is no indication for immediate blood product transfusion at present. Status: Acute Assessment and plan: SEE PLAN OF CARE LISTED BELOW Current Visit: No (5) Atrial fibrillation Problem details: Paroxysmal; early postoperative period patient has maintained normal sinus rhythm. Systemic coagulation per consulting glass ribbon machine operator assistant and cardiothoracic surgery service. Patient is receiving treatment dose subQ Lovenox Status: Chronic Assessment and plan: SEE PLAN OF CARE LISTED BELOW Current Visit: No (6) Coronary artery disease Status: Chronic Assessment and plan: SEE PLAN OF CARE LISTED BELOW Current Visit: No Qualifiers: Coronary Disease-Associated Artery/Lesion type: [place] artery [place] vs. transplanted heart: [place] heart Associated angina: without angina Qualified Code(s): I25.10 - Atherosclerotic heart disease of [place] coronary artery without angina pectoris (7) Diabetes Status: Chronic Assessment and plan: SEE PLAN OF CARE LISTED BELOW Current Visit: No Qualifiers: Diabetes mellitus type: type 2 (8) Dyslipidemia Problem details: Receiving Crestor. Check fasting lipid profile in a.m. Status: Chronic Assessment and plan: SEE PLAN OF CARE LISTED BELOW Current Visit: No (9) Hypertension Problem details: Well-controlled postoperatively; continue current treatment with Coreg, diltiazem, and Lasix. Status: Chronic Current Visit: No Qualifiers: Hypertension type: essential hypertension Qualified Code(s): I10 - Essential (primary) hypertension (10) S/P CABG (coronary artery bypass graft) Problem details: Three-vessel coronary artery disease; internal mammary graft to the anterior descending coronary artery and saphenous vein graft to the obtuse marginal and right coronary arteries 04/02/2017 (postop day 3). Status : Chronic Assessment and plan: SEE PLAN OF CARE LISTED BELOW Current Visit: No (11) Liza-Erwin tear Status: Acute Assessment and plan: SEE PLAN OF CARE LISTED BELOW Current Visit: Yes (12) GE junction ulcer Status: Acute Assessment and plan: SEE PLAN OF CARE LISTED BELOW Current Visit: Yes Cardiology - PN: Subj Interval history: DRY CURE WORKER: DR. BAUTISTA SUMMARY: Mr. Mathew, 67WM, underwent elective cardiac catheterization April 01, 2017 revealing severe three-vessel CAD, EF 60%. April 02, 2017 underwent CABG 3 (SUE - LAD, SVG - OM, SVG - RCA). Tolerated the procedure well and without complication. He was discharged home in stable condition April 07, 2017. Patient returned to the ED of [facility] April 11, 2017 with nausea and vomiting. In the ER, he suddenly became bradycardic, hypotensive and required CPR, intubation and resuscitation. He was found to be hyperkalemic (potassium 6.6). EKG after CODE revealed bradycardia with a wide QRS complex. Cardiology was asked to evaluate for possible STEMI. It is felt this was NSTEMI with more of a metabolic ECG change with right wide QRS complex but without findings of acute AR. The repeat EKG revealed narrow QRS complex, no ST elevation. He has chronic atrial fibrillation. He is also found to be in acute renal failure. His only new medication at discharge was Amiodarone. Echo April 11, 2017: EF 50% without significant valvular abnormality. APRIL 13, 2017: This morning, patient is responsive. Abdomen firm with scant bowel sounds. Patient acknowledges significant abdominal pain. Creatinine has worsened at 5.3. ALT, AST elevated. Will repeat LFTs this morning. Hold lipid -lowering agent at this time. Post CABG anemia seems to be stable. He is going for CT Abdomen this morning. Will order EKG this morning. Few telemetry strips recorded over the past 48 hours. Will ask more frequently to be scanned in. Eliquis continues at 5 mg twice daily. At this point, I will hold Eliquis until patient's abdominal issues were addressed. Will further discuss with Dr. Bautista and await additional recommendations. APRIL 15, 2017: Overnight, Dopamine has been weaned off and his blood pressure has been stable. He is n.p.o. for an EGD this morning. Although he is on the ventilator, he wakes easily and follows commands. Creatinine minimally improved at 5.0 this morning. Anemia also stable. Continue to hold Eliquis, Amiodarone and lipid-lowering agent until acute issues have resolved. Remains in normal sinus rhythm. Wounds healing well without dehiscence or drainage. APRIL 16, 2017: Patient is on CPAP trials this morning. Underwent EGD yesterday for evaluation of bright red bloody NG aspirate requiring transfusion. Identified was Liza-Erwin tear, GE junction ulcer noted. Per Dr. Vicente, recommend waiting 48 hours post EGD before restarting Eliquis (this will be April 17, 2017). In atrial fibrillation this morning, rate controlled. Scheduled to undergo 3-4 hours dialysis today, creatinine up to 6.0 this morning. Some improvement is noted. Hopefully he will be extubated soon. Will add low-dose beta-veronika this morning. When LFTs improve, restart Amiodarone. Will further discuss with Dr. Young and await additional recommendations. APRIL 17, 2017: To undergo dialysis today for 3 hours, scheduled for 4 hours tomorrow. Creatinine decreased to 5.0 this morning. Hopefully, continue to decrease over the weekend. Anemia stable. If labs remain stable overnight, recommend restarting Eliquis Thursday. Appears very comfortable the ventilator. Remains in normal sinus rhythm. Will restart Amiodarone, lipid- lowering agent when LFTs improve. Some improvement but stable. Will further discuss with Dr. Bautista and await additional recommendations. ASSESSMENT/PLAN: 1. RESPIRATORY FAILURE - intubated, continue current plan of care. Pulmonary assisting. Now on CPAP trials 2. HYPERKALEMIA - resolved. 3. CAD - 3VCAD now status post revascularization. Aspirin on hold. Starting beta-veronika this morning. Holding SANTOS inhibitor due to acute kidney injury. Holding lipid-lowering agent due elevated AST, ALT. 4. S/P CABG - SUE - LAD, SVG - OM, SVG - RCA. Continue current plan of care 5. HYPERTENSION - usually well controlled. 6. DYSLIPIDEMIA - LDL at goal (30) during last hospital stay. Holding lipid- lowering agent at this point due to elevated LFTs. 7. ATRIAL FIBRILLATION - holding Amiodarone until acute issues resolved. Restart Eliquis possibly tomorrow morning. 8. DIABETES - Hospitalist has been instrumental in better controlling diabetes 9. ANEMIA - stable, continue to follow closely 10. ACUTE KIDNEY INJURY - creatinine improved overnight from 6.0-5.0. HD today. Avoiding nephrotoxic agents 11. ABDOMINAL DISTENTION, PAIN - see EGD report. Not thought to be related to ischemic bowel. 12. LIZA-ERWIN TEAR, GE JUNCTION ULCER - holding Eliquis but may consider restarting Thursday morning if labs remain stable overnight. Exam (Progress Note) - Constitutional Exam (Progress Note) - Constitutional Vitals: Period Temp Pulse Resp BP Sys/Guzman Pulse Ox Last 24 Hr 97.1 F-98.3 F 65-93 13-20 94-146/65-88 90-97 Exam: General: [Appears to be comfortable. Cooperative. ] HEENT: [PERRL, normocephalic, atraumatic. Mucous membranes moist. No jaundice noted. Conjunctiva moist and clear, sclerae anicteric] Neck: Unable to assess for JVD due to habitus. No carotid bruit appreciated Cardiac: [Irregularly irregular rhythm, controlled rate.] [No obvious murmur rub or gallop.] Sternotomy incision healing well without dehiscence or drainage Lungs: [Clear to auscultation without accessory muscle use to assist the respiratory pattern.] Symmetrical chest wall movements noted. Abdomen: Good, firm, sluggish bowel sounds. Tender to touch. Musculoskeletal: No fluid collection. Decreased range of motion is noted. Extremities: No clubbing, cyanosis noted. [ No edema noted.] Upper extremity pulses 2+. Lower extremity pulses 2+. Bilateral lower extremity incision is healing well without dehiscence or drainage. . Skin: No unusual lesions or rashes. No skin breakdown appreciated. Neuro: Awakes, pulse commands appropriately. Moves all extremities well without hemiparesis or paralysis. No essential tremor is appreciated. Result/EKG - Labs CBC & BMP: 04/17/17 06:15 04/17/17 06:15 Lab Results: I have reviewed the past 24 hour labs Labs: Laboratory Results - last 24 hr 04/16/17 04/16/17 04/16/17 09:08 10:07 11:03 WBC RBC Hgb Hct MCV MCH MCHC RDW Plt Count MPV Neut % (Auto) Lymph % (Auto) [place] % (Auto) Eos % (Auto) Baso % (Auto) Neut # (Auto) Lymph # (Auto) [place] # (Auto) Eos # (Auto) Baso # (Auto) Total Counted Immature Gran % Nucleated RBC % Immature Gran # Segmented Neutrophils Lymphocytes Monocytes Nucleated RBCs # Platelet Estimate Hypochromasia Microcytosis [place] Cells ABG pH ABG pCO2 ABG pO2 ABG HCO3 ABG Total CO2 ABG O2 Saturation ABG Base Excess FiO2 Sodium Potassium Chloride Carbon Dioxide Anion Gap BUN Creatinine GFR Calculation BUN/Creatinine Ratio Glucose POC Glucose 439 H 311 H 279 H Calculated Osmolality Calcium Magnesium 04/16/17 04/16/17 04/16/17 12:12 13:03 14:03 WBC RBC Hgb Hct MCV MCH MCHC RDW Plt Count MPV Neut % (Auto) Lymph % (Auto) [place] % (Auto) Eos % (Auto) Baso % (Auto) Neut # (Auto) Lymph # (Auto) [place] # (Auto) Eos # (Auto) Baso # (Auto) Total Counted Immature Gran % Nucleated RBC % Immature Gran # Segmented Neutrophils Lymphocytes Monocytes Nucleated RBCs # Platelet Estimate Hypochromasia Microcytosis [place] Cells ABG pH ABG pCO2 ABG pO2 ABG HCO3 ABG Total CO2 ABG O2 Saturation ABG Base Excess FiO2 Sodium Potassium Chloride Carbon Dioxide Anion Gap BUN Creatinine GFR Calculation BUN/Creatinine Ratio Glucose POC Glucose 233 H 278 H 239 H Calculated Osmolality Calcium Magnesium 04/16/17 04/16/17 04/16/17 15:00 15:56 17:28 WBC RBC Hgb Hct MCV MCH MCHC RDW Plt Count MPV Neut % (Auto) Lymph % (Auto) [place] % (Auto) Eos % (Auto) Baso % (Auto) Neut # (Auto) Lymph # (Auto) [place] # (Auto) Eos # (Auto) Baso # (Auto) Total Counted Immature Gran % Nucleated RBC % Immature Gran # Segmented Neutrophils Lymphocytes Monocytes Nucleated RBCs # Platelet Estimate Hypochromasia Microcytosis [place] Cells ABG pH ABG pCO2 ABG pO2 ABG HCO3 ABG Total CO2 ABG O2 Saturation ABG Base Excess FiO2 Sodium Potassium Chloride Carbon Dioxide Anion Gap BUN Creatinine GFR Calculation BUN/Creatinine Ratio Glucose POC Glucose 252 H 258 H 268 H Calculated Osmolality Calcium Magnesium 04/16/17 04/16/17 04/16/17 17:56 19:03 20:17 WBC RBC Hgb Hct MCV MCH MCHC RDW Plt Count MPV Neut % (Auto) Lymph % (Auto) [place] % (Auto) Eos % (Auto) Baso % (Auto) Neut # (Auto) Lymph # (Auto) [place] # (Auto) Eos # (Auto) Baso # (Auto) Total Counted Immature Gran % Nucleated RBC % Immature Gran # Segmented Neutrophils Lymphocytes Monocytes Nucleated RBCs # Platelet Estimate Hypochromasia Microcytosis [place] Cells ABG pH ABG pCO2 ABG pO2 ABG HCO3 ABG Total CO2 ABG O2 Saturation ABG Base Excess FiO2 Sodium Potassium Chloride Carbon Dioxide Anion Gap BUN Creatinine GFR Calculation BUN/Creatinine Ratio Glucose POC Glucose 231 H 253 H 207 H Calculated Osmolality Calcium Magnesium 04/16/17 04/16/17 04/16/17 20:59 22:08 23:09 WBC RBC Hgb Hct MCV MCH MCHC RDW Plt Count MPV Neut % (Auto) Lymph % (Auto) [place] % (Auto) Eos % (Auto) Baso % (Auto) Neut # (Auto) Lymph # (Auto) [place] # (Auto) Eos # (Auto) Baso # (Auto) Total Counted Immature Gran % Nucleated RBC % Immature Gran # Segmented Neutrophils Lymphocytes Monocytes Nucleated RBCs # Platelet Estimate Hypochromasia Microcytosis [place] Cells ABG pH ABG pCO2 ABG pO2 ABG HCO3 ABG Total CO2 ABG O2 Saturation ABG Base Excess FiO2 Sodium Potassium Chloride Carbon Dioxide Anion Gap BUN Creatinine GFR Calculation BUN/Creatinine Ratio Glucose POC Glucose 234 H 212 H 200 H Calculated Osmolality Calcium Magnesium 04/17/17 04/17/17 04/17/17 00:08 01:08 02:06 WBC RBC Hgb Hct MCV MCH MCHC RDW Plt Count MPV Neut % (Auto) Lymph % (Auto) [place] % (Auto) Eos % (Auto) Baso % (Auto) Neut # (Auto) Lymph # (Auto) [place] # (Auto) Eos # (Auto) Baso # (Auto) Total Counted Immature Gran % Nucleated RBC % Immature Gran # Segmented Neutrophils Lymphocytes Monocytes Nucleated RBCs # Platelet Estimate Hypochromasia Microcytosis [place] Cells ABG pH ABG pCO2 ABG pO2 ABG HCO3 ABG Total CO2 ABG O2 Saturation ABG Base Excess FiO2 Sodium Potassium Chloride Carbon Dioxide Anion Gap BUN Creatinine GFR Calculation BUN/Creatinine Ratio Glucose POC Glucose 219 H 189 H 182 H Calculated Osmolality Calcium Magnesium 04/17/17 04/17/17 04/17/17 03:12 03:40 04:13 WBC RBC Hgb Hct MCV MCH MCHC RDW Plt Count MPV Neut % (Auto) Lymph % (Auto) [place] % (Auto) Eos % (Auto) Baso % (Auto) Neut # (Auto) Lymph # (Auto) [place] # (Auto) Eos # (Auto) Baso # (Auto) Total Counted Immature Gran % Nucleated RBC % Immature Gran # Segmented Neutrophils Lymphocytes Monocytes Nucleated RBCs # Platelet Estimate Hypochromasia Microcytosis [place] Cells ABG pH 7.421 ABG pCO2 30.2 L ABG pO2 75.5 L ABG HCO3 21.1 ABG Total CO2 17.7 L ABG O2 Saturation 95.0 ABG Base Excess -3.9 L FiO2 60.00 Sodium Potassium Chloride Carbon Dioxide Anion Gap BUN Creatinine GFR Calculation BUN/Creatinine Ratio Glucose POC Glucose 177 H 207 H Calculated Osmolality Calcium Magnesium 04/17/17 04/17/17 04/17/17 05:06 06:02 06:15 WBC 10.5 RBC 3.71 L Hgb 10.9 L Hct 31.7 L MCV 85.4 L MCH 29 MCHC 34.4 RDW 15.0 Plt Count 101 L MPV 11.9 Neut % (Auto) 87.4 H Lymph % (Auto) 4.3 L [place] % (Auto) 7.0 Eos % (Auto) 0.2 Baso % (Auto) 0.0 Neut # (Auto) 9.2 H Lymph # (Auto) 0.5 L [place] # (Auto) 0.7 Eos # (Auto) 0.0 Baso # (Auto) 0.0 Total Counted 100 Immature Gran % 1.1 Nucleated RBC % 0.0 Immature Gran # 0.12 Segmented Neutrophils 91 H Lymphocytes 5 L Monocytes 4 Nucleated RBCs # 0.00 Platelet Estimate Decreased Hypochromasia 1+ Microcytosis 1+ [place] Cells Slight ABG pH ABG pCO2 ABG pO2 ABG HCO3 ABG Total CO2 ABG O2 Saturation ABG Base Excess FiO2 Sodium Potassium Chloride Carbon Dioxide Anion Gap BUN Creatinine GFR Calculation BUN/Creatinine Ratio Glucose POC Glucose 159 H 156 H Calculated Osmolality Calcium Magnesium 04/17/17 06:15 WBC RBC Hgb Hct MCV MCH MCHC RDW Plt Count MPV Neut % (Auto) Lymph % (Auto) [place] % (Auto) Eos % (Auto) Baso % (Auto) Neut # (Auto) Lymph # (Auto) [place] # (Auto) Eos # (Auto) Baso # (Auto) Total Counted Immature Gran % Nucleated RBC % Immature Gran # Segmented Neutrophils Lymphocytes Monocytes Nucleated RBCs # Platelet Estimate Hypochromasia Microcytosis [place] Cells ABG pH ABG pCO2 ABG pO2 ABG HCO3 ABG Total CO2 ABG O2 Saturation ABG Base Excess FiO2 Sodium 135 L Potassium 4.3 Chloride 101 Carbon Dioxide 21 Anion Gap 17.3 H BUN 89 H Creatinine 5.00 H GFR Calculation 13 BUN/Creatinine Ratio 17.00 Glucose 138 H POC Glucose Calculated Osmolality 298.1 Calcium 7.8 L Magnesium 2.7 H - Diagnostic Findings Procedure: Chest x-ray: report reviewed by me - EKG EKG results: interpreted by me EKG shows: sinus rhythm
[2017-04-17] MEDS: PANTOPRAZOLE 40 MG VIAL IV SCH ×2 (09:19→21:14)
[2017-04-17] MEDS: METOPROLOL TARTRATE 25 MG TABLET PO SCH ×2 (09:19→21:24)
--- NOTE | 2017-04-17 10:14 | Pulmonology Progress Note ---
Pulmonary - PN: Subj Interval history: Patient is a 67-year-old white man that had bypass surgery several weeks ago. He came back in with respiratory distress and congestive heart failure. He does have a history of having COPD. He had to be intubated for his respiratory distress. He developed worsening renal failure and has required dialysis. He still has relative hypoxemia but is stable on the ventilator. He has remained comfortable on the ventilator with stable vital signs. His PO2 is still only 75 on 60 percent oxygen. He is on dialysis now and then to get rid of volume. Overall he is stable. Exam (Progress Note) - Constitutional Vitals: Period Temp Pulse Resp BP Sys/Guzman Pulse Ox Last 24 Hr 97.1 F-98.3 F 65-93 12-20 94-146/65-88 90-97 Exam: General appearance: normal weight, no acute distress (The patient is responding and looks comfortable on the ventilator. He is still requiring increased FiO2. ) Overall he looks about the same. - Head Head exam: Present: normal inspection, normocephalic - Eye Eye exam: Present: EOMI. Absent: scleral icterus Pupils: Present: HEATHER - ENT ENT exam: Present: normal exam, other (He has an ET tube in place.) - Neck Neck exam: Present: normal inspection. Absent: lymphadenopathy, thyromegaly - Respiratory Respiratory exam: Present: He has good breath sounds bilaterally with good air movement but he does have some crackles toward the bases. - Cardiovascular Cardiovascular exam: Present: irregular rhythm, other (Chest wall wound is doing well.). Absent: gallop, systolic murmur - GI/Abdominal GI/Abdominal exam: Present: normal bowel sounds, soft. Absent: organomegaly, tenderness - Extremities Exam Extremities exam: Present: edema (He does have some swelling of his legs.). Absent: calf tenderness - Neurological Exam Neurological exam: Present: altered (He is more alert this morning and looks reasonably comfortable.) - Psychiatric Psychiatric exam: Absent: anxious - Skin Skin exam: Present: warm, dry Results - Labs CBC & BMP: 04/17/17 06:15 04/17/17 06:15 Labs: PO2 75 with a PCO2 of 30 and a pH of 7.42 - Diagnostic Findings Procedure: Chest x-ray: image reviewed by me, report reviewed by me (Chest x- ray still shows cardiomegaly and looks like CHF.) Assessment and Plan (1) Diabetes Status: Chronic Assessment and plan: The patient's glucoses are better today and his glucose is 156. Current Visit: No Qualifiers: Diabetes mellitus type: type 2 (2) Hypertension Problem details: Well-controlled postoperatively; continue current treatment with Coreg, diltiazem, and Lasix. Status: Chronic Assessment and plan: The patient blood pressure has been under reasonable control. He does appear to be hemodynamically stable. Current Visit: No Qualifiers: Hypertension type: essential hypertension Qualified Code(s): I10 - Essential (primary) hypertension (3) Atrial fibrillation Problem details: Paroxysmal; early postoperative period patient has maintained normal sinus rhythm. Systemic coagulation per consulting assembler watch train and cardiothoracic surgery service. Patient is receiving treatment dose subQ Lovenox Status: Chronic Assessment and plan: The patient's heart rate is stable. Current Visit: No (4) S/P CABG (coronary artery bypass graft) Problem details: Three-vessel coronary artery disease; internal mammary graft to the anterior descending coronary artery and saphenous vein graft to the obtuse marginal and right coronary arteries 04/02/2017 (postop day 3). Status : Chronic Assessment and plan: The patient had bypass surgery several weeks ago. Current Visit: No (5) Renal failure Status: Acute Assessment and plan: The patient will have dialysis again today. He continues to be a little overloaded and trying to get rid of fluid. Current Visit: Yes (6) Respiratory failure Status: Acute Assessment and plan: The patient still has a large A-a O2 grade his PO2 is not that high. He is improving but is still not ready to come off the ventilator. He continues to be stable on the ventilator. Current Visit: Yes
[2017-04-17] MEDS: PROPOFOL 1,000 MG/100 ML BOTTLE IV SCH ×3 (11:04→23:16)
[2017-04-17] MEDS: cefTRIAXone 1,000 MG in SODIUM CHLORIDE 0.9% 100 ML IV SCH (13:42)
--- NOTE | 2017-04-17 15:01 | Hospitalist Progress Note ---
Assessment and Plan (1) Respiratory failure Status: Acute Assessment and plan: Dr. Castellanos attempting to wean the vent Current Visit: Yes (2) Pericardial effusion Status: Acute Assessment and plan: echo showed moderate pericardial effusion Current Visit: Yes (3) Bilateral pleural effusion Status: Acute Assessment and plan: cont dialysis Current Visit: Yes (4) Diabetes Status: Chronic Assessment and plan: cont tpn, cont insulin drip to control bs Current Visit: No Qualifiers: Diabetes mellitus type: type 2 (5) Atrial fibrillation Problem details: Paroxysmal; early postoperative period patient has maintained normal sinus rhythm. Systemic coagulation per consulting publicity agent and cardiothoracic surgery service. Patient is receiving treatment dose subQ Lovenox Status: Chronic Assessment and plan: Eliquis will restart in am Current Visit: No (6) S/P CABG (coronary artery bypass graft) Problem details: Three-vessel coronary artery disease; internal mammary graft to the anterior descending coronary artery and saphenous vein graft to the obtuse marginal and right coronary arteries 04/02/2017 (postop day 3). Status : Chronic Assessment and plan: ASA 81 mg in am Current Visit: No (7) Anemia Problem details: Multifactorial including chronic disease and acute surgical blood loss. Patient remains hemodynamically stable. Continue monitoring. There is no indication for immediate blood product transfusion at present. Status: Acute Assessment and plan: hgb stable Current Visit: No (8) Acute kidney injury Problem details: Related to suspected intravascular volume depletion. IV Lasix dose discontinued earlier today. Recheck BMP in a.m. Status: Acute Assessment and plan: cont dialysis Current Visit: No (9) Ileus Status: Acute Assessment and plan: still no bowel movement Current Visit: Yes (10) Hypotension Status: Acute Assessment and plan: resolved, off pressor Current Visit: Yes (11) UGI bleed Status: Acute Assessment and plan: s/p EGD #1 Liza-Meza tear, small hiatal hernia, GE junction ulcer, protonix Current Visit: Yes (12) Shock liver Status: Acute Assessment and plan: cont to monitor, will check ammonia liver Current Visit: Yes Hospitalist: Subjective Interval history: Patient looks good today. He is going to be dialyzed again today. Hopefully he will be able to be extubated on Thursday. Plan to move him to [facility] on Thursday. UO improving Exam - Constitutional Vitals: Period Temp Pulse Resp BP Sys/Guzman Pulse Ox Last 24 Hr 97.1 F-98.3 F 65-91 10-20 94-146/65-88 91-98 Exam: Heart Rate-[IRR] Lungs-clear ] GI-[+ bowel sounds, nontender Ext-[1+edema Neuro alert and oriented, following commands. psych normal mood and affect General [no acute distress] Results - Labs CBC & BMP: 04/17/17 06:15 04/17/17 06:15 Lab Results: I have reviewed the past 24 hour labs Labs: Sputum and blood cultures negative no growth, hgb A1c 6 - Diagnostic Findings Procedure: Chest x-ray: report reviewed by me (Bilateral pulmonary edema and pleural effusions)
[2017-04-17] MEDS: MULTIVITAMIN IV SCH (17:33)
[2017-04-17] MEDS: [UNRECOGNIZED DRUG - OTHER] IV SCH (17:33)
[2017-04-17] MEDS: ELECTROLYTE IV SCH (17:33)
[2017-04-17] MEDS: INSULIN REGULAR IV SCH (17:33)
[2017-04-18] MEDS: ALBUTEROL/IPRATROPIUM 3 ML NEB RESP TX SCH ×4 (00:04→19:32)
[2017-04-18 03:02] LABS: ABG Base Excess -3.5 MMOL/L (-2.5-2.5); ABG HCO3 19.6 MMOL/L (20-26); ABG PCO2 29.1 MM HG (35-48); ABG PH 7.446 (7.35-7.45); ABG PO2 65.7 MM HG (80-95); ABG TCO2 20.5 MMOL/L (23-27); Allen Test Positive; Pt O2 Delivery Device Ventilator
[2017-04-18] MEDS: PROPOFOL 1,000 MG/100 ML BOTTLE IV SCH ×4 (04:50→23:50)
[2017-04-18 05:04] LABS: Eosinophils % 0.2 % (0.00-10.9); Hematocrit 30.5 VOL% (42.0-52.0); Hemoglobin 10.5 GM/DL (14.0-18.0); Immature Granulocytes % 1.2 %; Immature Granulocytes Absolute 0.14 #; Lymphocytes # 0.5 10*3/uL (1.4-4.0); Lymphocytes % 4.5 % (21.2-54.2); Mean Corpuscular HGB Conc 34.4 GM/DL (32-36); Mean Corpuscular Hemoglobin 29 PG (27-34); Mean Platelet Volume 11.9 FL (9.6-12.0); Monocytes # 0.9 10*3/uL (0.11-0.8); Monocytes % 8.2 % (1.7-12.7); Neutrophils # 9.7 10*3/uL (1.4-7.4); Neutrophils % 85.9 % (38.7-73.9); Platelet Count 118 T/CUMM (130-400); Red Blood Count 3.59 MC/CUMM (3.8-5.5); Red Cell Distribution Width 14.8 % (9.3-17.3); White Blood Count 11.2 T/CUMM (4-12)
[2017-04-18 05:35] LABS: Magnesium 2.4 MG/DL (1.8-2.4); Potassium 4.4 MMOL/L (3.5-5.1)
[2017-04-18 06:11] LABS: Lymphocytes 6 % (20-55); Platelet Estimate Adequate; Segmented Neutrophils 90 % (50-85); Total Cells Counted 100
[2017-04-18] MEDS: methylPREDNISolone SOD SUC 40 MG/1 ML VIAL IV SCH ×2 (06:32→20:00)
[2017-04-18] MEDS: INSULIN REGULAR DRIP 100 ML IV SCH ×2 (06:49→17:24)
--- NOTE | 2017-04-18 07:49 | Pulmonology Progress Note ---
Pulmonary - PN: Subj Interval history: Patient is a 67-year-old white man that had bypass surgery several weeks ago. He came back in with respiratory distress and congestive heart failure. He does have a history of having COPD. He had to be intubated for his respiratory distress. He developed worsening renal failure and has required dialysis. He still has relative hypoxemia but is stable on the ventilator. He has remained comfortable on the ventilator with stable vital signs. He has been getting dialysis every day and is losing some fluid. The last few days his weight is down 3 kg. His O2 saturation is still running in the low 90s. His PO2 is only 65 today. Exam (Progress Note) - Constitutional Vitals: Period Temp Pulse Resp BP Sys/Guzman Pulse Ox Last 24 Hr 97.0 F-98.1 F 68-91 10-19 92-135/51-84 93-98 Exam: General appearance: normal weight, no acute distress (The patient is responding and looks comfortable on the ventilator. He is still requiring increased FiO2. ) Overall he looks about the same. - Head Head exam: Present: normal inspection, normocephalic - Eye Eye exam: Present: EOMI. Absent: scleral icterus Pupils: Present: HEATHER - ENT ENT exam: Present: normal exam, other (He has an ET tube in place.) - Neck Neck exam: Present: normal inspection. Absent: lymphadenopathy, thyromegaly - Respiratory Respiratory exam: Present: He has good breath sounds bilaterally fairly good air movement with no wheezing . He has some crackles in the bases. - Cardiovascular Cardiovascular exam: Present: irregular rhythm, other (Chest wall wound is doing well.). Absent: gallop, systolic murmur - GI/Abdominal GI/Abdominal exam: Present: normal bowel sounds, soft. Absent: organomegaly, tenderness - Extremities Exam Extremities exam: Present: edema (He does have some swelling of his legs.). Absent: calf tenderness - Neurological Exam Neurological exam: Present: altered (He is more alert this morning and looks reasonably comfortable.) - Psychiatric Psychiatric exam: Absent: anxious - Skin Skin exam: Present: warm, dry Results - Labs CBC & BMP: 04/18/17 04:51 04/18/17 04:51 Labs: PO2 of 65 with a PCO2 of 29 and a pH of 7.44 Assessment and Plan (1) Diabetes Status: Chronic Assessment and plan: The patient's glucoses are better today and his glucose is 79. Current Visit: No Qualifiers: Diabetes mellitus type: type 2 (2) Hypertension Problem details: Well-controlled postoperatively; continue current treatment with Coreg, diltiazem, and Lasix. Status: Chronic Assessment and plan: The patient blood pressure has been under reasonable control. He does appear to be hemodynamically stable. Current Visit: No Qualifiers: Hypertension type: essential hypertension Qualified Code(s): I10 - Essential (primary) hypertension (3) Atrial fibrillation Problem details: Paroxysmal; early postoperative period patient has maintained normal sinus rhythm. Systemic coagulation per consulting library science instructor and cardiothoracic surgery service. Patient is receiving treatment dose subQ Lovenox Status: Chronic Assessment and plan: The patient's heart rate is stable. Current Visit: No (4) S/P CABG (coronary artery bypass graft) Problem details: Three-vessel coronary artery disease; internal mammary graft to the anterior descending coronary artery and saphenous vein graft to the obtuse marginal and right coronary arteries 04/02/2017 (postop day 3). Status : Chronic Assessment and plan: The patient had bypass surgery several weeks ago. Current Visit: No (5) Renal failure Status: Acute Assessment and plan: The patient will have dialysis again today. Current Visit: Yes (6) Respiratory failure Status: Acute Assessment and plan: The patient still has a large A-a O2 grade his PO2 is not that high. He will continue to get dialysis. Will try to adjust his ventilator. Current Visit: Yes
[2017-04-18] MEDS: LEVOFLOXACIN INJ 250 MG in PREMIX 1 EACH IV SCH (08:59)
[2017-04-18] MEDS: METOPROLOL TARTRATE 25 MG TABLET PO SCH ×2 (08:59→20:11)
[2017-04-18] MEDS: ENOXAPARIN 100 MG/ML SYRINGE SUBCUT SCH (08:59)
[2017-04-18] MEDS: PANTOPRAZOLE 40 MG VIAL IV SCH ×2 (08:59→20:05)
[2017-04-18] MEDS: ASPIRIN EC 81 MG TABLET PO SCH (09:00)
[2017-04-18 09:02] LABS: Albumin 2.2 G/DL (3.4-5.0); Bilirubin,Direct 0.6 MG/DL (0.0-0.20); Bilirubin,Indirect 0.3 MG/DL (0.0-1.0); Bilirubin,Total 0.9 MG/DL (0.2-1.0); Total Protein 5.1 G/DL (6.4-8.3)
--- NOTE | 2017-04-18 09:05 | XRay Report ---
XR KUB Indication: Decreased bowel sounds Comparison: None available Findings: No free fluid or free air seen. The bowel gas pattern appears within normal limits. NG tube is present, appears within normal limits No abnormal calcifications are present. No other abnormality is identified. Impression: No evidence of abnormality demonstrated PROCEDURE INTERPRETED AT [facility] Final Report Signed by: Dr. Ruy Floyd
[2017-04-18] MEDS: SERTRALINE 25 MG TABLET PO SCH (09:55)
--- NOTE | 2017-04-18 10:18 | Cardiology Progress Note ---
Assessment and Plan (1) Hypotension Status: Acute Assessment and plan: April 13, 2017: 1. Still having some intermittent hypotension, so I am changing dobutamine to low-dose dopamine 3 mcg/kg/min, and discontinuing Coreg and diltiazem for now. 2. He is back in atrial fibrillation (apparently went into sinus for a while after cardioversion); discontinue amiodarone. 3. Creatinine still rising with severe oliguria. We will give normal saline bolus given his borderline normal LV function. 4. Surgery is seeing for abdominal distention and intractable nausea and abdominal pain several days prior to admission per 5. Moderate anemia seems to be stable with no obvious source of bleeding. 6. Status post CABG on previous/recent admission. April 14, 2017: 1. He is again having some modest hypotension since off pressors. Try low- dose dopamine 3 mcg/kg/min, and could slightly up titrated if needed. 2. Acute renal failure with resolved hyperkalemia; still with severe oliguria status post hemodialysis yesterday. 3. Apparent ileus with some abdominal distention; intractable nausea and abdominal pain several days prior to admission was noted. 4. Status post recent CABG 5. Moderate anemia with slight drop off in hematocrit; continue to monitor. 6. Echocardiogram April 13, 2017 shows ejection fraction 65% with moderate localized inferolateral pericardial effusion (should not cause tamponade physiology) April 18, 2017: 1. Mr. Mathew's hypotension seems to be behind him and is not required pressors in quite some time 2. He has been back in atrial fibrillation since he came in, but with controlled rate; no need to cardiovert now but could consider this in the near future. 3. He is alert and gradually weaning on the ventilator 4. Urine output is gradually picking up in his creatinine is a bit better 4.4 today; I am told hemodialysis is again planned today. 5. He already had full dose Lovenox today, so would hold off on changing to Eliquis 5 mg twice daily (he should be on to tolerate this, as it is less than 30% renally excreted) Current Visit: Yes (2) Renal failure Status: Acute Current Visit: Yes (3) Anemia Problem details: Multifactorial including chronic disease and acute surgical blood loss. Patient remains hemodynamically stable. Continue monitoring. There is no indication for immediate blood product transfusion at present. Status: Acute Current Visit: No (4) Atrial fibrillation Problem details: Paroxysmal; early postoperative period patient has maintained normal sinus rhythm. Systemic coagulation per consulting systems testing laboratory technician and cardiothoracic surgery service. Patient is receiving treatment dose subQ Lovenox Status: Chronic Current Visit: No (5) Coronary artery disease Status: Chronic Current Visit: No Qualifiers: Coronary Disease-Associated Artery/Lesion type: [place] artery [place] vs. transplanted heart: [place] heart Associated angina: without angina Qualified Code(s): I25.10 - Atherosclerotic heart disease of [place] coronary artery without angina pectoris (6) S/P CABG (coronary artery bypass graft) Problem details: Three-vessel coronary artery disease; internal mammary graft to the anterior descending coronary artery and saphenous vein graft to the obtuse marginal and right coronary arteries 04/02/2017 (postop day 3). Status : Chronic Current Visit: No Cardiology - PN: Subj Interval history: Mr. Mathew makes gradual progress weaning on the ventilator some slight increase urine output. He has been hemodynamically stable without hypotension this morning. He is alert and in no distress. He becomes a bit frustrated because he cannot communicate on the ventilator. Exam (Progress Note) - Constitutional Vitals: Period Temp Pulse Resp BP Sys/Guzman Pulse Ox Last 24 Hr 97.0 F-98.1 F 68-90 10-18 92-146/51-84 93-98 General appearance: normal weight, no acute distress - Head Head exam: Present: normal inspection, normocephalic, atraumatic - Neck Neck exam: Present: normal inspection - Respiratory Respiratory exam: Absent: rales, rhonchi, stridor, wheezes - Cardiovascular Cardiovascular exam: Present: irregular rhythm. Absent: diastolic murmur, rubs , tachycardia - GI/Abdominal GI/Abdominal exam: Present: distended. Absent: tenderness - Extremities Exam Extremities exam: Absent: edema - Neurological Exam Neurological exam: Present: alert Result/EKG - Labs CBC & BMP: 04/18/17 04:51 04/18/17 04:51 Labs: Laboratory Results - last 24 hr 04/17/17 04/17/17 04/17/17 07:24 09:11 09:47 WBC RBC Hgb Hct MCV MCH MCHC RDW Plt Count MPV Neut % (Auto) Lymph % (Auto) Ramsey % (Auto) Eos % (Auto) Baso % (Auto) Neut # (Auto) Lymph # (Auto) Ramsey # (Auto) Eos # (Auto) Baso # (Auto) Total Counted Immature Gran % Nucleated RBC % Immature Gran # Segmented Neutrophils Lymphocytes Monocytes Nucleated RBCs # Platelet Estimate Pappenheimer Bodies ABG pH ABG pCO2 ABG pO2 ABG HCO3 ABG Total CO2 ABG O2 Saturation ABG Base Excess FiO2 Sodium Potassium Chloride Carbon Dioxide Anion Gap BUN Creatinine GFR Calculation BUN/Creatinine Ratio Glucose POC Glucose 153 H 142 H 146 H Calculated Osmolality Calcium Magnesium Total Bilirubin Direct Bilirubin Indirect Bilirubin AST ALT Alkaline Phosphatase Ammonia Total Protein Albumin 04/17/17 04/17/17 04/17/17 10:49 11:51 13:28 WBC RBC Hgb Hct MCV MCH MCHC RDW Plt Count MPV Neut % (Auto) Lymph % (Auto) Ramsey % (Auto) Eos % (Auto) Baso % (Auto) Neut # (Auto) Lymph # (Auto) Ramsey # (Auto) Eos # (Auto) Baso # (Auto) Total Counted Immature Gran % Nucleated RBC % Immature Gran # Segmented Neutrophils Lymphocytes Monocytes Nucleated RBCs # Platelet Estimate Pappenheimer Bodies ABG pH ABG pCO2 ABG pO2 ABG HCO3 ABG Total CO2 ABG O2 Saturation ABG Base Excess FiO2 Sodium Potassium Chloride Carbon Dioxide Anion Gap BUN Creatinine GFR Calculation BUN/Creatinine Ratio Glucose POC Glucose 128 H 116 H 96 Calculated Osmolality Calcium Magnesium Total Bilirubin Direct Bilirubin Indirect Bilirubin AST ALT Alkaline Phosphatase Ammonia Total Protein Albumin 04/17/17 04/17/17 04/17/17 14:50 15:55 16:18 WBC RBC Hgb Hct MCV MCH MCHC RDW Plt Count MPV Neut % (Auto) Lymph % (Auto) Ramsey % (Auto) Eos % (Auto) Baso % (Auto) Neut # (Auto) Lymph # (Auto) Ramsey # (Auto) Eos # (Auto) Baso # (Auto) Total Counted Immature Gran % Nucleated RBC % Immature Gran # Segmented Neutrophils Lymphocytes Monocytes Nucleated RBCs # Platelet Estimate Pappenheimer Bodies ABG pH ABG pCO2 ABG pO2 ABG HCO3 ABG Total CO2 ABG O2 Saturation ABG Base Excess FiO2 Sodium Potassium Chloride Carbon Dioxide Anion Gap BUN Creatinine GFR Calculation BUN/Creatinine Ratio Glucose POC Glucose 94 91 Calculated Osmolality Calcium Magnesium Total Bilirubin Direct Bilirubin Indirect Bilirubin AST ALT Alkaline Phosphatase Ammonia 16 Total Protein Albumin 04/17/17 04/17/17 04/17/17 16:54 17:56 19:11 WBC RBC Hgb Hct MCV MCH MCHC RDW Plt Count MPV Neut % (Auto) Lymph % (Auto) Ramsey % (Auto) Eos % (Auto) Baso % (Auto) Neut # (Auto) Lymph # (Auto) Ramsey # (Auto) Eos # (Auto) Baso # (Auto) Total Counted Immature Gran % Nucleated RBC % Immature Gran # Segmented Neutrophils Lymphocytes Monocytes Nucleated RBCs # Platelet Estimate Pappenheimer Bodies ABG pH ABG pCO2 ABG pO2 ABG HCO3 ABG Total CO2 ABG O2 Saturation ABG Base Excess FiO2 Sodium Potassium Chloride Carbon Dioxide Anion Gap BUN Creatinine GFR Calculation BUN/Creatinine Ratio Glucose POC Glucose 92 111 H 154 H Calculated Osmolality Calcium Magnesium Total Bilirubin Direct Bilirubin Indirect Bilirubin AST ALT Alkaline Phosphatase Ammonia Total Protein Albumin 04/17/17 04/17/17 04/17/17 20:09 21:09 22:07 WBC RBC Hgb Hct MCV MCH MCHC RDW Plt Count MPV Neut % (Auto) Lymph % (Auto) Ramsey % (Auto) Eos % (Auto) Baso % (Auto) Neut # (Auto) Lymph # (Auto) Ramsey # (Auto) Eos # (Auto) Baso # (Auto) Total Counted Immature Gran % Nucleated RBC % Immature Gran # Segmented Neutrophils Lymphocytes Monocytes Nucleated RBCs # Platelet Estimate Pappenheimer Bodies ABG pH ABG pCO2 ABG pO2 ABG HCO3 ABG Total CO2 ABG O2 Saturation ABG Base Excess FiO2 Sodium Potassium Chloride Carbon Dioxide Anion Gap BUN Creatinine GFR Calculation BUN/Creatinine Ratio Glucose POC Glucose 139 H 124 H 107 H Calculated Osmolality Calcium Magnesium Total Bilirubin Direct Bilirubin Indirect Bilirubin AST ALT Alkaline Phosphatase Ammonia Total Protein Albumin 04/17/17 04/18/17 04/18/17 22:56 00:01 01:02 WBC RBC Hgb Hct MCV MCH MCHC RDW Plt Count MPV Neut % (Auto) Lymph % (Auto) Ramsey % (Auto) Eos % (Auto) Baso % (Auto) Neut # (Auto) Lymph # (Auto) Ramsey # (Auto) Eos # (Auto) Baso # (Auto) Total Counted Immature Gran % Nucleated RBC % Immature Gran # Segmented Neutrophils Lymphocytes Monocytes Nucleated RBCs # Platelet Estimate Pappenheimer Bodies ABG pH ABG pCO2 ABG pO2 ABG HCO3 ABG Total CO2 ABG O2 Saturation ABG Base Excess FiO2 Sodium Potassium Chloride Carbon Dioxide Anion Gap BUN Creatinine GFR Calculation BUN/Creatinine Ratio Glucose POC Glucose 90 92 77 Calculated Osmolality Calcium Magnesium Total Bilirubin Direct Bilirubin Indirect Bilirubin AST ALT Alkaline Phosphatase Ammonia Total Protein Albumin 04/18/17 04/18/17 04/18/17 01:59 02:55 03:00 WBC RBC Hgb Hct MCV MCH MCHC RDW Plt Count MPV Neut % (Auto) Lymph % (Auto) Ramsey % (Auto) Eos % (Auto) Baso % (Auto) Neut # (Auto) Lymph # (Auto) Ramsey # (Auto) Eos # (Auto) Baso # (Auto) Total Counted Immature Gran % Nucleated RBC % Immature Gran # Segmented Neutrophils Lymphocytes Monocytes Nucleated RBCs # Platelet Estimate Pappenheimer Bodies ABG pH 7.446 ABG pCO2 29.1 L ABG pO2 65.7 L ABG HCO3 19.6 L ABG Total CO2 20.5 L ABG O2 Saturation 93.0 L ABG Base Excess -3.5 L FiO2 60.00 Sodium Potassium Chloride Carbon Dioxide Anion Gap BUN Creatinine GFR Calculation BUN/Creatinine Ratio Glucose POC Glucose 66 L 65 L Calculated Osmolality Calcium Magnesium Total Bilirubin Direct Bilirubin Indirect Bilirubin AST ALT Alkaline Phosphatase Ammonia Total Protein Albumin 04/18/17 04/18/17 04/18/17 03:56 04:47 04:51 WBC 11.2 RBC 3.59 L Hgb 10.5 L Hct 30.5 L MCV 85.0 L MCH 29 MCHC 34.4 RDW 14.8 Plt Count 118 L MPV 11.9 Neut % (Auto) 85.9 H Lymph % (Auto) 4.5 L Ramsey % (Auto) 8.2 Eos % (Auto) 0.2 Baso % (Auto) 0.0 Neut # (Auto) 9.7 H Lymph # (Auto) 0.5 L Ramsey # (Auto) 0.9 H Eos # (Auto) 0.0 Baso # (Auto) 0.0 Total Counted 100 Immature Gran % 1.2 Nucleated RBC % 0.0 Immature Gran # 0.14 Segmented Neutrophils 90 H Lymphocytes 6 L Monocytes 4 Nucleated RBCs # 0.00 Platelet Estimate Adequate Pappenheimer Bodies Monotype Operator ABG pH ABG pCO2 ABG pO2 ABG HCO3 ABG Total CO2 ABG O2 Saturation ABG Base Excess FiO2 Sodium Potassium Chloride Carbon Dioxide Anion Gap BUN Creatinine GFR Calculation BUN/Creatinine Ratio Glucose POC Glucose 86 Calculated Osmolality Calcium Magnesium Total Bilirubin 0.90 Direct Bilirubin 0.60 H Indirect Bilirubin 0.3 AST 46 H ALT 388 H Alkaline Phosphatase 67 Ammonia Total Protein 5.1 L Albumin 2.2 L 04/18/17 04/18/17 04/18/17 04:51 05:05 06:01 WBC RBC Hgb Hct MCV MCH MCHC RDW Plt Count MPV Neut % (Auto) Lymph % (Auto) Ramsey % (Auto) Eos % (Auto) Baso % (Auto) Neut # (Auto) Lymph # (Auto) Ramsey # (Auto) Eos # (Auto) Baso # (Auto) Total Counted Immature Gran % Nucleated RBC % Immature Gran # Segmented Neutrophils Lymphocytes Monocytes Nucleated RBCs # Platelet Estimate Pappenheimer Bodies ABG pH ABG pCO2 ABG pO2 ABG HCO3 ABG Total CO2 ABG O2 Saturation ABG Base Excess FiO2 Sodium 136 Potassium 4.4 Chloride 102 Carbon Dioxide 21 Anion Gap 17.4 H BUN 81 H Creatinine 4.40 H GFR Calculation 15 BUN/Creatinine Ratio 18.00 Glucose 87 POC Glucose 90 94 Calculated Osmolality 294.0 Calcium 8.0 L Magnesium 2.4 Total Bilirubin Direct Bilirubin Indirect Bilirubin AST ALT Alkaline Phosphatase Ammonia Total Protein Albumin 04/18/17 07:35 WBC RBC Hgb Hct MCV MCH MCHC RDW Plt Count MPV Neut % (Auto) Lymph % (Auto) Ramsey % (Auto) Eos % (Auto) Baso % (Auto) Neut # (Auto) Lymph # (Auto) Ramsey # (Auto) Eos # (Auto) Baso # (Auto) Total Counted Immature Gran % Nucleated RBC % Immature Gran # Segmented Neutrophils Lymphocytes Monocytes Nucleated RBCs # Platelet Estimate Pappenheimer Bodies ABG pH ABG pCO2 ABG pO2 ABG HCO3 ABG Total CO2 ABG O2 Saturation ABG Base Excess FiO2 Sodium Potassium Chloride Carbon Dioxide Anion Gap BUN Creatinine GFR Calculation BUN/Creatinine Ratio Glucose POC Glucose 79 Calculated Osmolality Calcium Magnesium Total Bilirubin Direct Bilirubin Indirect Bilirubin AST ALT Alkaline Phosphatase Ammonia Total Protein Albumin
--- NOTE | 2017-04-18 11:31 | Nephrology Progress Note ---
Nephrology - PN: Subj Interval history: Pt opens eyes to verbal stimuli. Nods head to questions. Denies pain. Exam (PN)-Nephrology - Vital Signs Vital signs: Period Temp Pulse Resp BP Sys/Guzman Pulse Ox Last 24 Hr 97.0 F-98.1 F 68-90 10-18 92-146/51-84 93-98 - General Appearance General appearance: chronically ill, sedated on ventilator, intubated EENT: ATNC, PERRL, mucous membranes dry, hearing intact, vision intact Neck: JVD, no thyromegaly Respiratory: no kyphosis, clear Cardiology: no murmurs, no rub Gastrointestinal: normoactive bowel sounds, no tenderness Integumentary: no rash, warm and dry Neurologic: no focal deficit, no asterixis Musculoskeletal: no deformities, no erythema Psychiatric: mood/affect appropriate, cooperative - Lab 04/18/17 04:51 04/18/17 04:51 Most recent lab results ABG pH 7.446 (7.35-7.45) 04/18/17 02:55 ABG pCO2 29.1 MM HG (35-48) L 04/18/17 02:55 ABG pO2 65.7 MM HG (80-95) L 04/18/17 02:55 ABG HCO3 19.6 MMOL/L (20-26) L 04/18/17 02:55 ABG O2 Saturation 93.0 % (95-100) L 04/18/17 02:55 Calcium 8.0 MG/DL (8.5-10.1) L 04/18/17 04:51 Phosphorus 6.5 MG/DL (2.5-4.9) H 04/16/17 05:04 Magnesium 2.4 MG/DL (1.8-2.4) 04/18/17 04:51 Assessment and Plan (1) Acute kidney injury Problem details: HD again today for volume removal. Status: Acute Assessment and plan: Repeat Hd today for volume. Current Visit: No
--- NOTE | 2017-04-18 12:06 | Hospitalist Progress Note ---
Assessment and Plan (1) Respiratory failure Status: Acute Assessment and plan: Dr. Castellanos attempting to wean the vent but probably will not be ready to extubate on Thursday, may need bilateral thoracentesis, will hold off on coumadin Current Visit: Yes (2) Pericardial effusion Status: Acute Assessment and plan: echo showed moderate pericardial effusion Current Visit: Yes (3) Bilateral pleural effusion Status: Acute Assessment and plan: cont dialysis, may need bilateral thoracentesis, restart Lovenox do not start Coumadin. Current Visit: Yes (4) Diabetes Status: Chronic Assessment and plan: cont tpn, cont insulin drip to control bs Current Visit: No Qualifiers: Diabetes mellitus type: type 2 (5) Atrial fibrillation Problem details: Paroxysmal; early postoperative period patient has maintained normal sinus rhythm. Systemic coagulation per consulting real estate legal assistant and cardiothoracic surgery service. Patient is receiving treatment dose subQ Lovenox Status: Chronic Assessment and plan: Cannot give the Eliquis due to renal failure, will start Lovenox treatment dose , will not reinitiate Coumadin until thoracentesis decision is made Current Visit: No (6) S/P CABG (coronary artery bypass graft) Problem details: Three-vessel coronary artery disease; internal mammary graft to the anterior descending coronary artery and saphenous vein graft to the obtuse marginal and right coronary arteries 04/02/2017 (postop day 3). Status : Chronic Assessment and plan: restarted asa Current Visit: No (7) Anemia Problem details: Multifactorial including chronic disease and acute surgical blood loss. Patient remains hemodynamically stable. Continue monitoring. There is no indication for immediate blood product transfusion at present. Status: Acute Assessment and plan: hgb stablebut need to monitor plt Current Visit: No (8) Acute kidney injury Problem details: HD again today for volume removal. Status: Acute Assessment and plan: cont dialysis today Current Visit: No (9) Ileus Status: Acute Assessment and plan: kub no obstruction tap water enema, miralax, start ng tube feedings to force bowels to move. Current Visit: Yes (10) Hypotension Status: Acute Assessment and plan: resolved Current Visit: Yes (11) UGI bleed Status: Acute Assessment and plan: s/p EGD #1 Liza-Meza tear, small hiatal hernia, GE junction ulcer, protonix , resolved Current Visit: Yes (12) Shock liver Status: Acute Assessment and plan: resolving, ammonia level normal Current Visit: Yes Hospitalist: Subjective Interval history: Discussed case with Dr. Castellanos and he does not feel that he will be able to wean him off the vent on Thursday. Updated the family. They are getting very fragile due to this prolonged hospital stay. I talked to them about starting him on an antidepressant as I feel the patient is getting very depressed also. Urine output is picking up still not back to normal. Dr. Morillo has seen him today and will do dialysis again today. Hemoglobin is stable. Dr. Larry and I have spoke. I will start him back on Lovenox for his A.fib and a baby aspirin. I do not want to start Coumadin in case he needs bilateral thoracentesis after extubation. Exam - Constitutional Vitals: Period Temp Pulse Resp BP Sys/Guzman Pulse Ox Last 24 Hr 97.0 F-98.1 F 68-90 10-18 92-146/51-84 93-98 Exam: Heart Rate-[IRR] Lungs-diminished GI-[+bowel sounds, nontender Ext-[1+edema Neuro alert and oriented psych normal mood and affect General [no acute distress] Results - Labs CBC & BMP: 04/18/17 04:51 04/18/17 04:51 Lab Results: I have reviewed the past 24 hour labs Labs: blood cx times 2, sputum cx normal evan - Diagnostic Findings Procedure: KUB x-ray: report reviewed by me (no evidence of abnormality )
[2017-04-18] MEDS: POLYETHYLENE GLYCOL POWDER 17 GM PACK PO SCH ×6 (12:35→22:42)
[2017-04-18] MEDS: MORPHINE 2 MG/1 ML SYRINGE IV PRN (13:36)
[2017-04-18] MEDS: cefTRIAXone 1,000 MG in SODIUM CHLORIDE 0.9% 100 ML IV SCH (14:37)
[2017-04-18] MEDS: [UNRECOGNIZED DRUG - OTHER] IV SCH (17:35)
[2017-04-18] MEDS: INSULIN REGULAR IV SCH (17:35)
[2017-04-18] MEDS: ELECTROLYTE IV SCH (17:35)
[2017-04-18] MEDS: MULTIVITAMIN IV SCH (17:35)
[2017-04-18] MEDS ORDERED: WARFARIN 5 MG TABLET PO SCH (18:00)
--- NOTE | 2017-04-18 18:06 | General Surgery Progress Note ---
Assessment and Plan (1) Ileus Status: Acute Assessment and plan: Impression: Ileus, resolving Plan: Asked to see patient by hospital service. He appears to be improving. I do not detect any intra-abdominal catastrophe at this time. He is currently on tube feeds started today. We will continue the tube feeds at 10 cc an hour and plan to advance per protocol beginning tomorrow as long as his residuals remain acceptable. He is not currently on any pressor support. Current Visit: Yes Subjective Narrative: Patient seen and examined. I asked to reevaluate by the hospitalist service. Patient remains intubated and sedated. According to nursing staff he appears to be improving and I have started tube feeds this morning. They ruled out impaction on examination. No bowel movements. Exam - Constitutional Vitals: Period Temp Pulse Resp BP Sys/Guzman Pulse Ox Last 24 Hr 97.0 F-98.1 F 71-94 12-21 92-146/51-82 93-100 General appearance: no acute distress - Head Head exam: Present: normocephalic - Neck Neck exam: Present: normal inspection - Respiratory Respiratory exam: Present: clear to auscultation bilaterally - Cardiovascular Cardiovascular exam: Present: RRR - GI/Abdominal GI/Abdominal exam: Present: soft (Nontender nondistended) Results - Labs CBC & BMP: 04/18/17 04:51 04/18/17 04:51 Lab Results: I have reviewed the past 24 hour labs
[2017-04-19] MEDS: ALBUTEROL/IPRATROPIUM 3 ML NEB RESP TX SCH ×4 (00:01→19:03)
[2017-04-19] MEDS: INSULIN REGULAR DRIP 100 ML IV SCH ×3 (02:55→22:18)
[2017-04-19 04:11] LABS: ABG Base Excess -4.1 MMOL/L (-2.5-2.5); ABG Oxygen Saturation 95.4 % (95-100); ABG PCO2 31.1 MM HG (35-48); ABG PH 7.408 (7.35-7.45); ABG PO2 77.4 MM HG (80-95); ABG TCO2 17.6 MMOL/L (23-27); Allen Test Positive; Pt O2 Delivery Device Ventilator
[2017-04-19 05:21] LABS: Basophils % 0.1 % (0.0-0.8); Eosinophils % 0.2 % (0.00-10.9); Hematocrit 31.2 VOL% (42.0-52.0); Hemoglobin 10.7 GM/DL (14.0-18.0); Immature Granulocytes % 1.1 %; Immature Granulocytes Absolute 0.13 #; Lymphocytes # 0.5 10*3/uL (1.4-4.0); Lymphocytes % 4.3 % (21.2-54.2); Mean Corpuscular HGB Conc 34.3 GM/DL (32-36); Mean Corpuscular Hemoglobin 30 PG (27-34); Mean Corpuscular Volume 86.4 FL (87-102); Mean Platelet Volume 12.1 FL (9.6-12.0); Monocytes # 1.1 10*3/uL (0.11-0.8); Neutrophils # 10.1 10*3/uL (1.4-7.4); Neutrophils % 85.3 % (38.7-73.9); Platelet Count 107 T/CUMM (130-400); Red Blood Count 3.61 MC/CUMM (3.8-5.5); Red Cell Distribution Width 14.6 % (9.3-17.3); White Blood Count 11.8 T/CUMM (4-12)
[2017-04-19 05:32] LABS: INR 1.1; PT Patient Result 11.7 SECS
[2017-04-19] MEDS: PROPOFOL 1,000 MG/100 ML BOTTLE IV SCH ×4 (05:49→23:05)
[2017-04-19 05:54] LABS: Calcium 8.2 MG/DL (8.5-10.1); Magnesium 2.4 MG/DL (1.8-2.4); Osmolality,Calculated 290.2 MOS/KG (273-304); Potassium 4.6 MMOL/L (3.5-5.1)
[2017-04-19 06:00] LABS: Band Neutrophils 3 % (0-10); Lymphocytes 5 % (20-55); Myelocytes 4 %; Segmented Neutrophils 86 % (50-85)
[2017-04-19 06:01] LABS: Platelet Estimate Adequate; Total Cells Counted 100
[2017-04-19] MEDS: methylPREDNISolone SOD SUC 40 MG/1 ML VIAL IV SCH ×2 (06:33→18:56)
--- NOTE | 2017-04-19 07:52 | Pulmonology Progress Note ---
Pulmonary - PN: Subj Interval history: Patient is a 67-year-old white man that had bypass surgery several weeks ago. He came back in with respiratory distress and congestive heart failure. He does have a history of having COPD. He had to be intubated for his respiratory distress. He developed worsening renal failure and has required dialysis. He still has relative hypoxemia but is stable on the ventilator. He has remained comfortable on the ventilator with stable vital signs. He has been getting dialysis every day and is losing some fluid. His oxygenation is doing a little better now. He did do CPAP fairly well yesterday. He still not having very good bowel movements and is getting laxatives. Overall he is stable. Hopefully he can be extubated early next week. Exam (Progress Note) - Constitutional Vitals: Period Temp Pulse Resp BP Sys/Guzman Pulse Ox Last 24 Hr 97.1 F-98.9 F 71-94 12-21 96-146/62-91 93-100 Exam: General appearance: normal weight, no acute distress (The patient is responding and looks comfortable on the ventilator. He is stable on 50% O2.) - Head Head exam: Present: normal inspection, normocephalic - Eye Eye exam: Present: EOMI. Absent: scleral icterus Pupils: Present: HEATHER - ENT ENT exam: Present: normal exam, other (He has an ET tube in place.) - Neck Neck exam: Present: normal inspection. Absent: lymphadenopathy, thyromegaly - Respiratory Respiratory exam: Present: He has good breath sounds bilaterally fairly good air movement with no wheezing . He has some crackles in the bases. - Cardiovascular Cardiovascular exam: Present: irregular rhythm, other (Chest wall wound is doing well.). Absent: gallop, systolic murmur - GI/Abdominal GI/Abdominal exam: Present: normal bowel sounds, soft. He has not had a lot of bowel activity absent: organomegaly, tenderness - Extremities Exam Extremities exam: Present: edema (He does have some swelling of his legs.). Absent: calf tenderness - Neurological Exam Neurological exam: Present: altered (He is more alert this morning and looks reasonably comfortable.) - Psychiatric Psychiatric exam: Absent: anxious - Skin Skin exam: Present: warm, dry Results - Labs CBC & BMP: 04/19/17 04:19 04/19/17 04:19 Labs: PO2 77 with a PCO2 of 31 and a pH of 7.4 on 50% O2. Assessment and Plan (1) Diabetes Status: Chronic Assessment and plan: The patient's glucoses are better today and his glucose is 111. Current Visit: No Qualifiers: Diabetes mellitus type: type 2 (2) Hypertension Problem details: Well-controlled postoperatively; continue current treatment with Coreg, diltiazem, and Lasix. Status: Chronic Assessment and plan: The patient blood pressure has been under reasonable control. He does appear to be hemodynamically stable. Current Visit: No Qualifiers: Hypertension type: essential hypertension Qualified Code(s): I10 - Essential (primary) hypertension (3) Atrial fibrillation Problem details: Paroxysmal; early postoperative period patient has maintained normal sinus rhythm. Systemic coagulation per consulting steam fitter helper and cardiothoracic surgery service. Patient is receiving treatment dose subQ Lovenox Status: Chronic Assessment and plan: The patient's heart rate is stable. Current Visit: No (4) S/P CABG (coronary artery bypass graft) Problem details: Three-vessel coronary artery disease; internal mammary graft to the anterior descending coronary artery and saphenous vein graft to the obtuse marginal and right coronary arteries 04/02/2017 (postop day 3). Status : Chronic Assessment and plan: The patient had bypass surgery several weeks ago. Current Visit: No (5) Renal failure Status: Acute Assessment and plan: The patient will have dialysis again today. His weight is down at least 4 kg with dialysis lately. Current Visit: Yes (6) Respiratory failure Status: Acute Assessment and plan: The patient still has a large A-a O2 gradient but his PO2 has improved a little. He is doing a little better with CPAP. Current Visit: Yes
--- NOTE | 2017-04-19 08:41 | Cardiology Progress Note ---
Assessment and Plan (1) Hypotension Status: Acute Assessment and plan: April 13, 2017: 1. Still having some intermittent hypotension, so I am changing dobutamine to low-dose dopamine 3 mcg/kg/min, and discontinuing Coreg and diltiazem for now. 2. He is back in atrial fibrillation (apparently went into sinus for a while after cardioversion); discontinue amiodarone. 3. Creatinine still rising with severe oliguria. We will give normal saline bolus given his borderline normal LV function. 4. Surgery is seeing for abdominal distention and intractable nausea and abdominal pain several days prior to admission per 5. Moderate anemia seems to be stable with no obvious source of bleeding. 6. Status post CABG on previous/recent admission. April 14, 2017: 1. He is again having some modest hypotension since off pressors. Try low- dose dopamine 3 mcg/kg/min, and could slightly up titrated if needed. 2. Acute renal failure with resolved hyperkalemia; still with severe oliguria status post hemodialysis yesterday. 3. Apparent ileus with some abdominal distention; intractable nausea and abdominal pain several days prior to admission was noted. 4. Status post recent CABG 5. Moderate anemia with slight drop off in hematocrit; continue to monitor. 6. Echocardiogram April 13, 2017 shows ejection fraction 65% with moderate localized inferolateral pericardial effusion (should not cause tamponade physiology) April 18, 2017: 1. Mr. Roys hypotension seems to be behind him and is not required pressors in quite some time 2. He has been back in atrial fibrillation since he came in, but with controlled rate; no need to cardiovert now but could consider this in the near future. 3. He is alert and gradually weaning on the ventilator 4. Urine output is gradually picking up in his creatinine is a bit better 4.4 today; I am told hemodialysis is again planned today. 5. He already had full dose Lovenox today, so would hold off on changing to Eliquis 5 mg twice daily (he should be on to tolerate this, as it is less than 30% renally excreted) April 19, 2017: 1. Mr. Piper blood pressure has been stable without significant hypotension for several days, and so has not required pressor support. 2. He has persistent atrial fibrillation since being admitted but rate is controlled; would consider cardioversion at a later time if he does not convert spontaneously. 3. Weaning on the ventilator, he is very alert on examination. 4. Increasing urine output with dropping creatinine at 3.8 today 5. Would continue on Lovenox rather than changing to Eliquis until it is clear he needs no intervention on his distended abdomen (although this appears unlikely) Current Visit: Yes (2) Renal failure Status: Acute Current Visit: Yes (3) Anemia Problem details: Multifactorial including chronic disease and acute surgical blood loss. Patient remains hemodynamically stable. Continue monitoring. There is no indication for immediate blood product transfusion at present. Status: Acute Current Visit: No (4) Atrial fibrillation Problem details: Paroxysmal; early postoperative period patient has maintained normal sinus rhythm. Systemic coagulation per consulting [employer] certified concierge and cardiothoracic surgery service. Patient is receiving treatment dose subQ Lovenox Status: Chronic Current Visit: No (5) Coronary artery disease Status: Chronic Current Visit: No Qualifiers: Coronary Disease-Associated Artery/Lesion type: rincon artery [place] vs. transplanted heart: rincon heart Associated angina: without angina Qualified Code(s): I25.10 - Atherosclerotic heart disease of rincon coronary artery without angina pectoris (6) S/P CABG (coronary artery bypass graft) Problem details: Three-vessel coronary artery disease; internal mammary graft to the anterior descending coronary artery and saphenous vein graft to the obtuse marginal and right coronary arteries 04/02/2017 (postop day 3). Status : Chronic Current Visit: No Cardiology - PN: Subj Interval history: Mr. Mathew is in no distress, and is still quite alert. His urine output has picked up and his blood pressure has been stable. He has had no dysrhythmia other than his atrial fibrillation with controlled rate. Exam (Progress Note) - Constitutional Vitals: Period Temp Pulse Resp BP Sys/Guzman Pulse Ox Last 24 Hr 97.1 F-98.9 F 71-94 12-21 96-146/62-91 93-100 General appearance: normal weight, no acute distress - Head Head exam: Present: normal inspection, normocephalic, atraumatic - ENT ENT exam: Present: normal exam - Respiratory Respiratory exam: Present: clear to auscultation bilaterally. Absent: stridor, wheezes - Cardiovascular Cardiovascular exam: Present: irregular rhythm. Absent: bradycardia, diastolic murmur, rubs - GI/Abdominal GI/Abdominal exam: Present: distended. Absent: tenderness - Extremities Exam Extremities exam: Present: edema (Trivial) Result/EKG - Labs CBC & BMP: 04/19/17 04:19 04/19/17 04:19 Labs: Laboratory Results - last 24 hr 04/18/17 04/18/17 04/18/17 04:47 09:16 10:31 WBC RBC Hgb Hct MCV MCH MCHC RDW Plt Count MPV Neut % (Auto) Lymph % (Auto) Smyth % (Auto) Eos % (Auto) Baso % (Auto) Neut # (Auto) Lymph # (Auto) Smyth # (Auto) Eos # (Auto) Baso # (Auto) Total Counted Immature Gran % Nucleated RBC % Immature Gran # Segmented Neutrophils Band Neutrophils Lymphocytes Monocytes Myelocytes Nucleated RBCs # Platelet Estimate INR PT Patient/Control Mix ABG pH ABG pCO2 ABG pO2 ABG HCO3 ABG Total CO2 ABG O2 Saturation ABG Base Excess FiO2 Sodium Potassium Chloride Carbon Dioxide Anion Gap BUN Creatinine GFR Calculation BUN/Creatinine Ratio Glucose POC Glucose 110 H 138 H Calculated Osmolality Calcium Magnesium Total Bilirubin 0.90 Direct Bilirubin 0.60 H Indirect Bilirubin 0.3 AST 46 H ALT 388 H Alkaline Phosphatase 67 Total Protein 5.1 L Albumin 2.2 L 04/18/17 04/18/17 04/18/17 12:00 13:52 15:16 WBC RBC Hgb Hct MCV MCH MCHC RDW Plt Count MPV Neut % (Auto) Lymph % (Auto) Smyth % (Auto) Eos % (Auto) Baso % (Auto) Neut # (Auto) Lymph # (Auto) Smyth # (Auto) Eos # (Auto) Baso # (Auto) Total Counted Immature Gran % Nucleated RBC % Immature Gran # Segmented Neutrophils Band Neutrophils Lymphocytes Monocytes Myelocytes Nucleated RBCs # Platelet Estimate INR PT Patient/Control Mix ABG pH ABG pCO2 ABG pO2 ABG HCO3 ABG Total CO2 ABG O2 Saturation ABG Base Excess FiO2 Sodium Potassium Chloride Carbon Dioxide Anion Gap BUN Creatinine GFR Calculation BUN/Creatinine Ratio Glucose POC Glucose 120 H 128 H 112 H Calculated Osmolality Calcium Magnesium Total Bilirubin Direct Bilirubin Indirect Bilirubin AST ALT Alkaline Phosphatase Total Protein Albumin 04/18/17 04/18/17 04/18/17 16:18 17:03 18:03 WBC RBC Hgb Hct MCV MCH MCHC RDW Plt Count MPV Neut % (Auto) Lymph % (Auto) Smyth % (Auto) Eos % (Auto) Baso % (Auto) Neut # (Auto) Lymph # (Auto) Smyth # (Auto) Eos # (Auto) Baso # (Auto) Total Counted Immature Gran % Nucleated RBC % Immature Gran # Segmented Neutrophils Band Neutrophils Lymphocytes Monocytes Myelocytes Nucleated RBCs # Platelet Estimate INR PT Patient/Control Mix ABG pH ABG pCO2 ABG pO2 ABG HCO3 ABG Total CO2 ABG O2 Saturation ABG Base Excess FiO2 Sodium Potassium Chloride Carbon Dioxide Anion Gap BUN Creatinine GFR Calculation BUN/Creatinine Ratio Glucose POC Glucose 118 H 96 109 H Calculated Osmolality Calcium Magnesium Total Bilirubin Direct Bilirubin Indirect Bilirubin AST ALT Alkaline Phosphatase Total Protein Albumin 04/18/17 04/18/17 04/18/17 19:12 20:21 22:07 WBC RBC Hgb Hct MCV MCH MCHC RDW Plt Count MPV Neut % (Auto) Lymph % (Auto) Smyth % (Auto) Eos % (Auto) Baso % (Auto) Neut # (Auto) Lymph # (Auto) Smyth # (Auto) Eos # (Auto) Baso # (Auto) Total Counted Immature Gran % Nucleated RBC % Immature Gran # Segmented Neutrophils Band Neutrophils Lymphocytes Monocytes Myelocytes Nucleated RBCs # Platelet Estimate INR PT Patient/Control Mix ABG pH ABG pCO2 ABG pO2 ABG HCO3 ABG Total CO2 ABG O2 Saturation ABG Base Excess FiO2 Sodium Potassium Chloride Carbon Dioxide Anion Gap BUN Creatinine GFR Calculation BUN/Creatinine Ratio Glucose POC Glucose 87 96 83 Calculated Osmolality Calcium Magnesium Total Bilirubin Direct Bilirubin Indirect Bilirubin AST ALT Alkaline Phosphatase Total Protein Albumin 04/18/17 04/19/17 04/19/17 22:59 00:11 01:05 WBC RBC Hgb Hct MCV MCH MCHC RDW Plt Count MPV Neut % (Auto) Lymph % (Auto) Smyth % (Auto) Eos % (Auto) Baso % (Auto) Neut # (Auto) Lymph # (Auto) Smyth # (Auto) Eos # (Auto) Baso # (Auto) Total Counted Immature Gran % Nucleated RBC % Immature Gran # Segmented Neutrophils Band Neutrophils Lymphocytes Monocytes Myelocytes Nucleated RBCs # Platelet Estimate INR PT Patient/Control Mix ABG pH ABG pCO2 ABG pO2 ABG HCO3 ABG Total CO2 ABG O2 Saturation ABG Base Excess FiO2 Sodium Potassium Chloride Carbon Dioxide Anion Gap BUN Creatinine GFR Calculation BUN/Creatinine Ratio Glucose POC Glucose 83 94 86 Calculated Osmolality Calcium Magnesium Total Bilirubin Direct Bilirubin Indirect Bilirubin AST ALT Alkaline Phosphatase Total Protein Albumin 04/19/17 04/19/17 04/19/17 02:13 03:09 03:59 WBC RBC Hgb Hct MCV MCH MCHC RDW Plt Count MPV Neut % (Auto) Lymph % (Auto) Smyth % (Auto) Eos % (Auto) Baso % (Auto) Neut # (Auto) Lymph # (Auto) Smyth # (Auto) Eos # (Auto) Baso # (Auto) Total Counted Immature Gran % Nucleated RBC % Immature Gran # Segmented Neutrophils Band Neutrophils Lymphocytes Monocytes Myelocytes Nucleated RBCs # Platelet Estimate INR PT Patient/Control Mix ABG pH ABG pCO2 ABG pO2 ABG HCO3 ABG Total CO2 ABG O2 Saturation ABG Base Excess FiO2 Sodium Potassium Chloride Carbon Dioxide Anion Gap BUN Creatinine GFR Calculation BUN/Creatinine Ratio Glucose POC Glucose 97 99 102 Calculated Osmolality Calcium Magnesium Total Bilirubin Direct Bilirubin Indirect Bilirubin AST ALT Alkaline Phosphatase Total Protein Albumin 04/19/17 04/19/17 04/19/17 04:00 04:19 04:19 WBC 11.8 RBC 3.61 L Hgb 10.7 L Hct 31.2 L MCV 86.4 L MCH 30 MCHC 34.3 RDW 14.6 Plt Count 107 L MPV 12.1 H Neut % (Auto) 85.3 H Lymph % (Auto) 4.3 L Smyth % (Auto) 9.0 Eos % (Auto) 0.2 Baso % (Auto) 0.1 Neut # (Auto) 10.1 H Lymph # (Auto) 0.5 L Smyth # (Auto) 1.1 H Eos # (Auto) 0.0 Baso # (Auto) 0.0 Total Counted 100 Immature Gran % 1.1 Nucleated RBC % 0.0 Immature Gran # 0.13 Segmented Neutrophils 86 H Band Neutrophils 3 Lymphocytes 5 L Monocytes 2 Myelocytes 4 Nucleated RBCs # 0.00 Platelet Estimate Adequate INR PT Patient/Control Mix ABG pH 7.408 ABG pCO2 31.1 L ABG pO2 77.4 L ABG HCO3 21.0 ABG Total CO2 17.6 L ABG O2 Saturation 95.4 ABG Base Excess -4.1 L FiO2 50.00 Sodium 134 L Potassium 4.6 Chloride 101 Carbon Dioxide 21 Anion Gap 16.6 H BUN 76 H Creatinine 3.80 H GFR Calculation 18 BUN/Creatinine Ratio 20.00 Glucose 96 POC Glucose Calculated Osmolality 290.2 Calcium 8.2 L Magnesium 2.4 Total Bilirubin Direct Bilirubin Indirect Bilirubin AST ALT Alkaline Phosphatase Total Protein Albumin 04/19/17 04/19/17 04/19/17 04:19 05:11 06:22 WBC RBC Hgb Hct MCV MCH MCHC RDW Plt Count MPV Neut % (Auto) Lymph % (Auto) Smyth % (Auto) Eos % (Auto) Baso % (Auto) Neut # (Auto) Lymph # (Auto) Smyth # (Auto) Eos # (Auto) Baso # (Auto) Total Counted Immature Gran % Nucleated RBC % Immature Gran # Segmented Neutrophils Band Neutrophils Lymphocytes Monocytes Myelocytes Nucleated RBCs # Platelet Estimate INR 1.1 PT Patient/Control Mix 11.7 ABG pH ABG pCO2 ABG pO2 ABG HCO3 ABG Total CO2 ABG O2 Saturation ABG Base Excess FiO2 Sodium Potassium Chloride Carbon Dioxide Anion Gap BUN Creatinine GFR Calculation BUN/Creatinine Ratio Glucose POC Glucose 111 H 106 Calculated Osmolality Calcium Magnesium Total Bilirubin Direct Bilirubin Indirect Bilirubin AST ALT Alkaline Phosphatase Total Protein Albumin 04/19/17 07:28 WBC RBC Hgb Hct MCV MCH MCHC RDW Plt Count MPV Neut % (Auto) Lymph % (Auto) Smyth % (Auto) Eos % (Auto) Baso % (Auto) Neut # (Auto) Lymph # (Auto) Smyth # (Auto) Eos # (Auto) Baso # (Auto) Total Counted Immature Gran % Nucleated RBC % Immature Gran # Segmented Neutrophils Band Neutrophils Lymphocytes Monocytes Myelocytes Nucleated RBCs # Platelet Estimate INR PT Patient/Control Mix ABG pH ABG pCO2 ABG pO2 ABG HCO3 ABG Total CO2 ABG O2 Saturation ABG Base Excess FiO2 Sodium Potassium Chloride Carbon Dioxide Anion Gap BUN Creatinine GFR Calculation BUN/Creatinine Ratio Glucose POC Glucose 107 H Calculated Osmolality Calcium Magnesium Total Bilirubin Direct Bilirubin Indirect Bilirubin AST ALT Alkaline Phosphatase Total Protein Albumin
[2017-04-19] MEDS: METOPROLOL TARTRATE 25 MG TABLET PO SCH ×2 (09:45→22:13)
[2017-04-19] MEDS: ENOXAPARIN 100 MG/ML SYRINGE SUBCUT SCH (09:45)
[2017-04-19] MEDS: PANTOPRAZOLE 40 MG VIAL IV SCH ×2 (09:45→22:13)
[2017-04-19] MEDS: SERTRALINE 25 MG TABLET PO SCH (09:45)
[2017-04-19] MEDS: ASPIRIN EC 81 MG TABLET PO SCH (09:45)
--- NOTE | 2017-04-19 10:39 | General Surgery Progress Note ---
Assessment and Plan (1) Ileus Status: Acute Assessment and plan: Impression: Ileus, resolving Plan: Advance tube feeds per protocol and wean TPN. Will check residuals. Dr. Balta MATTHEWS will be back tomorrow and I have asked the nurses to notify him of the reconsult in the a.m. Current Visit: Yes Subjective Narrative: No issues overnight. I had a bowel movement. Exam - Constitutional Vitals: Period Temp Pulse Resp BP Sys/Guzman Pulse Ox Last 24 Hr 97.1 F-98.9 F 71-94 10-21 96-139/62-91 93-100 General appearance: no acute distress - Respiratory Respiratory exam: Present: clear to auscultation bilaterally - Cardiovascular Cardiovascular exam: Present: RRR - GI/Abdominal GI/Abdominal exam: Present: soft (Nondistended. Minimal residuals.) Results - Labs CBC & BMP: 04/19/17 04:19 04/19/17 04:19 Lab Results: I have reviewed the past 24 hour labs
--- NOTE | 2017-04-19 11:51 | Hospitalist Progress Note ---
Assessment and Plan (1) Respiratory failure Status: Acute Assessment and plan: Dr. Castellanos continue to attempt to wean off vent. We will avoid restarting Coumadin until we know if we need thoracentesis. Continues to do well on CPAP trial Current Visit: Yes (2) Pericardial effusion Status: Acute Assessment and plan: echo showed moderate pericardial effusion Current Visit: Yes (3) Bilateral pleural effusion Status: Acute Assessment and plan: cont dialysis, may need bilateral thoracentesis, cont Lovenox but do not start Coumadin. Current Visit: Yes (4) Diabetes Status: Chronic Assessment and plan: will wean off tpn when tolerating tube feeds, cont insulin drip to control bs Current Visit: No Qualifiers: Diabetes mellitus type: type 2 (5) Atrial fibrillation Problem details: Paroxysmal; early postoperative period patient has maintained normal sinus rhythm. Systemic coagulation per consulting flange machine operator and cardiothoracic surgery service. Patient is receiving treatment dose subQ Lovenox Status: Chronic Assessment and plan: cont lovenox and metoprolol Current Visit: No (6) S/P CABG (coronary artery bypass graft) Problem details: Three-vessel coronary artery disease; internal mammary graft to the anterior descending coronary artery and saphenous vein graft to the obtuse marginal and right coronary arteries 04/02/2017 (postop day 3). Status : Chronic Assessment and plan: cont asa Current Visit: No (7) Anemia Problem details: Multifactorial including chronic disease and acute surgical blood loss. Patient remains hemodynamically stable. Continue monitoring. There is no indication for immediate blood product transfusion at present. Status: Acute Assessment and plan: hgb stable Current Visit: No (8) Acute kidney injury Problem details: HD again today for volume removal. Status: Acute Assessment and plan: Continues to make more urine every day, creatinine improving, no dialysis today. Current Visit: No (9) Ileus Status: Acute Assessment and plan: Resolving, no high residuals, continue to increase tube feeds and wean off TPN Current Visit: Yes (10) UGI bleed Status: Acute Assessment and plan: No more evidence to suggest bleeding, s/p EGD #1 Liza-Meza tear, small hiatal hernia, GE junction ulcer, protonix Current Visit: Yes (11) Shock liver Status: Acute Assessment and plan: Liver enzymes continue to improve Current Visit: Yes (12) Thrombocytopenia Status: Acute Assessment and plan: Continue to monitor carefully while on Lovenox and aspirin Current Visit: Yes Hospitalist: Subjective Interval history: Patient finally having bowel movements. We will titrate up his feeding. We will stop frequent tapwater enemas. Family given update. Patient resting on the vent today. He did well on CPAP yesterday. He is tolerating anticoagulation. Will not start Coumadin until we know for going to do thoracentesis. Possible transfer to [facility] on Thursday. Exam - Constitutional Vitals: Period Temp Pulse Resp BP Sys/Guzman Pulse Ox Last 24 Hr 97.1 F-98.9 F 71-94 10-21 96-139/62-91 93-100 Exam: Heart Rate-[IRR] Lungs-clear GI-[+bowel sounds, soft, nontender Ext-[no edema Neuro sedated on the vent, cannot assess psych sedated on the vent, cannot assess General [no acute distress] Results - Labs CBC & BMP: 04/19/17 04:19 04/19/17 04:19 Lab Results: I have reviewed the past 24 hour labs Labs: Blood cultures and sputum cultures negative no growth
--- NOTE | 2017-04-19 12:00 | Nephrology Progress Note ---
Nephrology - PN: Subj Interval history: No acute overnight events. Tolerated HD yesterday s complications. Exam (PN)-Nephrology - Vital Signs Vital signs: Period Temp Pulse Resp BP Sys/Guzman Pulse Ox Last 24 Hr 97.1 F-98.9 F 71-94 10-21 96-139/62-91 93-100 - General Appearance General appearance: chronically ill, sedated on ventilator, intubated EENT: ATNC, PERRL Neck: no JVD, no thyromegaly Respiratory: no kyphosis, clear Cardiology: no murmurs, no rub Gastrointestinal: normoactive bowel sounds, no tenderness Integumentary: no rash, warm and dry Neurologic: no focal deficit, no asterixis Musculoskeletal: no deformities, no erythema Psychiatric: mood/affect appropriate, cooperative - Lab 04/19/17 04:19 04/19/17 04:19 Most recent lab results ABG pH 7.408 (7.35-7.45) 04/19/17 04:00 ABG pCO2 31.1 MM HG (35-48) L 04/19/17 04:00 ABG pO2 77.4 MM HG (80-95) L 04/19/17 04:00 ABG HCO3 21.0 MMOL/L (20-26) 04/19/17 04:00 ABG O2 Saturation 95.4 % (95-100) 04/19/17 04:00 Calcium 8.2 MG/DL (8.5-10.1) L 04/19/17 04:19 Phosphorus 6.5 MG/DL (2.5-4.9) H 04/16/17 05:04 Magnesium 2.4 MG/DL (1.8-2.4) 04/19/17 04:19 Assessment and Plan (1) Acute kidney injury Problem details: HD again today for volume removal. Status: Acute Assessment and plan: Reassess in am for indications for HD and provide prn. Current Visit: No
[2017-04-19] MEDS: cefTRIAXone 1,000 MG in SODIUM CHLORIDE 0.9% 100 ML IV SCH (13:58)
[2017-04-19] MEDS: MORPHINE 2 MG/1 ML SYRINGE IV PRN ×2 (14:05→19:55)
[2017-04-19] MEDS: [UNRECOGNIZED DRUG - OTHER] IV SCH (17:41)
[2017-04-19] MEDS: MULTIVITAMIN IV SCH (17:41)
[2017-04-19] MEDS: ELECTROLYTE IV SCH (17:41)
[2017-04-19] MEDS: INSULIN REGULAR IV SCH (17:41)
[2017-04-20] MEDS: ALBUTEROL/IPRATROPIUM 3 ML NEB RESP TX SCH ×4 (01:45→19:17)
[2017-04-20] MEDS: MORPHINE 2 MG/1 ML SYRINGE IV PRN ×5 (03:20→21:55)
[2017-04-20 03:57] LABS: ABG Base Excess -7.8 MMOL/L (-2.5-2.5); ABG HCO3 18.1 MMOL/L (20-26); ABG Oxygen Saturation 96.3 % (95-100); ABG PCO2 31.2 MM HG (35-48); ABG PH 7.344 (7.35-7.45); ABG PO2 87.4 MM HG (80-95); ABG TCO2 15.4 MMOL/L (23-27); Allen Test Positive; Pt O2 Delivery Device Ventilator
[2017-04-20] MEDS: PROPOFOL 1,000 MG/100 ML BOTTLE IV SCH ×2 (04:30→14:22)
[2017-04-20 05:50] LABS: Basophils % 0.1 % (0.0-0.8); Eosinophils % 0.2 % (0.00-10.9); Hematocrit 31.8 VOL% (42.0-52.0); Hemoglobin 10.7 GM/DL (14.0-18.0); Immature Granulocytes % 2.2 %; Immature Granulocytes Absolute 0.27 #; Lymphocytes # 0.5 10*3/uL (1.4-4.0); Lymphocytes % 3.8 % (21.2-54.2); Mean Corpuscular HGB Conc 33.6 GM/DL (32-36); Mean Corpuscular Hemoglobin 29 PG (27-34); Mean Corpuscular Volume 86.4 FL (87-102); Mean Platelet Volume 12.4 FL (9.6-12.0); Monocytes # 1.2 10*3/uL (0.11-0.8); Monocytes % 9.7 % (1.7-12.7); Neutrophils # 10.3 10*3/uL (1.4-7.4); Platelet Count 131 T/CUMM (130-400); Red Blood Count 3.68 MC/CUMM (3.8-5.5); Red Cell Distribution Width 14.8 % (9.3-17.3); White Blood Count 12.2 T/CUMM (4-12)
[2017-04-20 06:17] LABS: Burr Cells Slight; Hypochromasia Slight; Lymphocytes 4 % (20-55); Ovalocytes Slight; Platelet Estimate Normal; Segmented Neutrophils 89 % (50-85); Total Cells Counted 100
[2017-04-20 06:18] LABS: Microcytosis Slight
[2017-04-20 06:19] LABS: Phosphorous 6.6 MG/DL (2.5-4.9); Prealbumin 51.7 MG/DL (20-40)
[2017-04-20 06:27] LABS: Albumin 2.2 G/DL (3.4-5.0); Bilirubin,Total 0.8 MG/DL (0.2-1.0); Calcium 8.4 MG/DL (8.5-10.1); Magnesium 2.9 MG/DL (1.8-2.4); Osmolality,Calculated 300.4 MOS/KG (273-304); Total Protein 5.5 G/DL (6.4-8.3)
[2017-04-20] MEDS: methylPREDNISolone SOD SUC 40 MG/1 ML VIAL IV SCH ×2 (06:35→19:28)
--- NOTE | 2017-04-20 07:07 | Pulmonology Progress Note ---
Pulmonary - PN: Subj Interval history: This 67-year-old white male had coronary bypass surgery a couple weeks back. Came back in with respiratory failure. Has small pleural effusions more on the left than the right. He has COPD. His sputum is thick. He was given bronchodilators in the emergency room but they were not continued back here. Will add bronchodilators and Pulmozyme. Also both with steroids. Broaden antibiotics. Sputum culture. His PO2 is 177. We can reduce FiO2 and start weaning trials. 04/13/2017 patient has increased abdominal girth and his abdomen is tight. Chest x-ray looks a little better. Creatinine has risen to 5.3. I do not think he is ready for extubation yet but will start weaning trials. Needs abdomen evaluated further. Abdominal film is nonspecific. Concerned about bowel ischemia. 04/14/2017 patient had dialysis yesterday. His abdomen is less tight. His acidosis has been corrected. He will need further dialysis however. X-ray does look wet. Not able to do any weaning trials as yet. He does have COPD. 04/20/17 patient has been dialyzed daily for 5 days with a good bit of fluid taken off. Doing much better on prolonged CPAP. Will check mechanics and ABGs on CPAP today and see if we can get him extubated. PO2 is 87 but is on 50%. Exam (Progress Note) - Constitutional Vitals: Period Temp Pulse Resp BP Sys/Guzman Pulse Ox Last 24 Hr 97.6 F-98.8 F 67-101 10-19 96-144/62-93 93-98 Exam: Patient is alert, fairly calm, responsive. Vital signs normal. Pupils react to light. Orotracheal tube in place. Neck is supple. Chest reveals prolonged expiratory phase. Heart normal rate and rhythm no murmurs. Abdomen a little softer than yesterday, and he has abdominal wall edema. Extremities no clubbing or cyanosis. he does have a 1+ edema. Results - Labs CBC & BMP: 04/20/17 05:04 04/20/17 05:04 Lab Results: I have reviewed the past 24 hour labs - Diagnostic Findings Procedure: Chest x-ray: image reviewed by me (Left pleural effusion. Cardiomegaly has decreased. Right lung improved.) Assessment and Plan (1) Diabetes Status: Chronic Assessment and plan: Sliding scale insulin. Patient was on metformin prior to admission and has some renal insufficiency at present. May be an element of lactic acidosis related to that. We will hold the metformin. 04/12/2017 acidosis corrected. Glucoses running in the 300s. Will add some Humulin 70/30 in addition to sliding scale. 04/13/2017 continuing sliding scale. Glucoses in 200s. 04/14/2017 blood sugars still a little on the high side. Defer to hospitalist. 04/20/2017 blood sugars look well controlled at the present time. Current Visit: No Qualifiers: Diabetes mellitus type: type 2 (2) S/P CABG (coronary artery bypass graft) Problem details: Three-vessel coronary artery disease; internal mammary graft to the anterior descending coronary artery and saphenous vein graft to the obtuse marginal and right coronary arteries 04/02/2017 (postop day 3). Status : Chronic Assessment and plan: No evidence of any infection at the surgical wound site. He does have small pleural effusions left greater than right that may be related to that. Does not appear to be in alice failure. 04/12/2017 has small pleural effusions. Wounds appear to be intact. LV function appears intact. 04/13/2017 watching pleural effusions. May need drainage of the one on left if it increases anymore. 04/14/2017 does not appear to be in alice failure and no evidence of myocardial infarction 04/20/2017 congestive heart failure has improved with offloading of fluid with dialysis. Current Visit: No (3) Acute kidney injury Problem details: HD again today for volume removal. Status: Acute Assessment and plan: Mild elevation of creatinine and potassium. Metformin being held. 04/12/2017 creatinine up to 4.2. May need nephrology to see her. 04/13/2017 creatinine up to 5.3. Nephrology seeing. Urine output is quite low 04/14/2017 had dialysis yesterday and will be dialyzed today. We need to take off a good bit of fluid in order to wean him. He has anasarca. 04/20/2017 creatinine 4.8. He has been dialyzed 5 days in a row. Defer to nephrology on additional dialysis. Current Visit: No (4) Respiratory failure Status: Acute Assessment and plan: We will adjust ventilator and wean as tolerated 04/12/2017 PO2 much improved. Start weaning trials. He does have COPD and were added bronchodilators and steroids. 04/13/2017 ABGs improved. Do not think he is ready to be extubated until abdominal process is defined and improved. 04/14/2017 we will try to get his FiO2 down to 60% by increasing PEEP to 6. His need PO2 in the 60s. Can adjust as needed. Hopefully this will improve with offloading more fluid. 04/20/2017 tolerating CPAP well. Will see if I can get him extubated today. Current Visit: Yes
[2017-04-20] MEDS: INSULIN REGULAR DRIP 100 ML IV SCH ×2 (07:10→08:01)
--- NOTE | 2017-04-20 07:56 | Cardiology Progress Note ---
Cardiology - PN: Subj Interval history: Cardiology note 67-year-old man status post three-vessel CABG April 02, 2017 Readmitted with decompensated COPD Awake and alert Patient completed prolonged CPAP trial yesterday Currently receiving TPN and tube feedings Telemetry shows atrial fib ventricular rate in the 80s O2 sat 95 on 50% FiO2 Blood pressure 96/56 Lab data White count 12.2 hemoglobin 10.7 hematocrit 31.8 Sodium 133 potassium 5.0 chloride 101 CO2 11 BUN 111 creatinine 4.80 Irregular rhythm no murmur decreased breath sounds few basilar rhonchi Abdomen soft benign No leg edema Impression Status post three-vessel CABG April 02, 2017 with SUE graft to LAD, vein graft OM and vein graft RCA Recurrent atrial fibrillation Borderline blood pressure Respiratory failure/decompensated COPD Acute renal failure now on dialysis Diabetes Plan Continue CPAP trials. Hope to extubate soon. Lovenox Tube feedings and TPN Insulin drip Accu-Chek sugars Exam (Progress Note) - Constitutional Vitals: Period Temp Pulse Resp BP Sys/Guzman Pulse Ox Last 24 Hr 97.6 F-98.8 F 67-101 10-20 91-144/53-93 93-98 Result/EKG - Labs CBC & BMP: 04/20/17 05:04 04/20/17 05:04 Labs: Laboratory Results - last 24 hr 04/19/17 04/19/17 04/19/17 11:44 18:05 20:10 WBC RBC Hgb Hct MCV MCH MCHC RDW Plt Count MPV Neut % (Auto) Lymph % (Auto) [place] % (Auto) Eos % (Auto) Baso % (Auto) Neut # (Auto) Lymph # (Auto) [place] # (Auto) Eos # (Auto) Baso # (Auto) Total Counted Immature Gran % Nucleated RBC % Immature Gran # Segmented Neutrophils Lymphocytes Monocytes Nucleated RBCs # Platelet Estimate Hypochromasia Microcytosis Ovalocytes [place] Cells ABG pH ABG pCO2 ABG pO2 ABG HCO3 ABG Total CO2 ABG O2 Saturation ABG Base Excess FiO2 Sodium Potassium Chloride Carbon Dioxide Anion Gap BUN Creatinine GFR Calculation BUN/Creatinine Ratio Glucose POC Glucose 94 105 100 Calculated Osmolality Calcium Phosphorus Magnesium Total Bilirubin AST ALT Alkaline Phosphatase Total Protein Albumin Globulin Albumin/Globulin Ratio Prealbumin Triglycerides 04/19/17 04/20/17 04/20/17 22:03 03:00 05:04 WBC RBC Hgb Hct MCV MCH MCHC RDW Plt Count MPV Neut % (Auto) Lymph % (Auto) [place] % (Auto) Eos % (Auto) Baso % (Auto) Neut # (Auto) Lymph # (Auto) [place] # (Auto) Eos # (Auto) Baso # (Auto) Total Counted Immature Gran % Nucleated RBC % Immature Gran # Segmented Neutrophils Lymphocytes Monocytes Nucleated RBCs # Platelet Estimate Hypochromasia Microcytosis Ovalocytes [place] Cells ABG pH 7.344 L ABG pCO2 31.2 L ABG pO2 87.4 ABG HCO3 18.1 L ABG Total CO2 15.4 L ABG O2 Saturation 96.3 ABG Base Excess -7.8 L FiO2 50.00 Sodium Potassium Chloride Carbon Dioxide Anion Gap BUN Creatinine GFR Calculation BUN/Creatinine Ratio Glucose POC Glucose 100 Calculated Osmolality Calcium Phosphorus 6.6 H Magnesium Total Bilirubin AST ALT Alkaline Phosphatase Total Protein Albumin Globulin Albumin/Globulin Ratio Prealbumin 51.7 H Triglycerides 146 04/20/17 04/20/17 04/20/17 05:04 05:04 07:09 WBC 12.2 H RBC 3.68 L Hgb 10.7 L Hct 31.8 L MCV 86.4 L MCH 29 MCHC 33.6 RDW 14.8 Plt Count 131 D MPV 12.4 H Neut % (Auto) 84.0 H Lymph % (Auto) 3.8 L [place] % (Auto) 9.7 Eos % (Auto) 0.2 Baso % (Auto) 0.1 Neut # (Auto) 10.3 H Lymph # (Auto) 0.5 L [place] # (Auto) 1.2 H Eos # (Auto) 0.0 Baso # (Auto) 0.0 Total Counted 100 Immature Gran % 2.2 Nucleated RBC % 0.0 Immature Gran # 0.27 Segmented Neutrophils 89 H Lymphocytes 4 L Monocytes 7 Nucleated RBCs # 0.00 Platelet Estimate Normal Hypochromasia Slight Microcytosis Slight Ovalocytes Slight [place] Cells Slight ABG pH ABG pCO2 ABG pO2 ABG HCO3 ABG Total CO2 ABG O2 Saturation ABG Base Excess FiO2 Sodium 133 L Potassium 5.0 Chloride 101 Carbon Dioxide 16 L Anion Gap 21.0 H BUN 111 H Creatinine 4.80 H GFR Calculation 13 BUN/Creatinine Ratio 23.00 H Glucose 103 POC Glucose 101 Calculated Osmolality 300.4 Calcium 8.4 L Phosphorus Magnesium 2.9 H Total Bilirubin 0.80 AST 27 ALT 224 H Alkaline Phosphatase 88 Total Protein 5.5 L Albumin 2.2 L Globulin 3.3 Albumin/Globulin Ratio 0.6 L Prealbumin Triglycerides
[2017-04-20] MEDS: LEVOFLOXACIN INJ 250 MG in PREMIX 1 EACH IV SCH (08:00)
[2017-04-20] MEDS: ENOXAPARIN 100 MG/ML SYRINGE SUBCUT SCH (08:02)
[2017-04-20] MEDS: PANTOPRAZOLE 40 MG VIAL IV SCH ×2 (08:06→20:17)
[2017-04-20] MEDS: ASPIRIN EC 81 MG TABLET PO SCH (08:06)
[2017-04-20] MEDS: SERTRALINE 25 MG TABLET PO SCH (08:06)
[2017-04-20] MEDS: METOPROLOL TARTRATE 25 MG TABLET PO SCH (08:06)
--- NOTE | 2017-04-20 08:09 | XRay Report ---
XR chest 1V portable Indication: Respiratory failure, ventilator Comparison: 17 April 2017 Findings: The heart and mediastinum are stable in size and configuration. The lines and tubes are unchanged in position. The pulmonary vascularity is increased with hazy lower lung density similar to previous. No lung infiltrates, effusions, pneumothorax or other abnormality is demonstrated. Impression: No significant change PROCEDURE INTERPRETED AT [facility] DEPARTMENT OF RADIOLOGY Final Report Signed by: Dr. Ruy Floyd
--- NOTE | 2017-04-20 08:44 | General Surgery Progress Note ---
Assessment and Plan (1) Ileus Status: Acute Assessment and plan: The patient is awake and alert on the ventilator this morning. He denies abdominal pain. His abdomen is mildly distended but is nontender. He denies any tenderness or pain with palpation. I do not see evidence of an acute surgical process. I think ischemic bowel is very unlikely. 04/15: He denies abdominal pain and feels better. He has no complaints of abdominal pain and has no abdominal distention or tenderness. I do not think that there is an acute abdominal process. I am available if needed and please call if I can be of any further help. 04/20: I was asked to evaluate his abdomen this morning. Yesterday there was a question of whether there was some abdominal distention. Dr. Casarez asked that I will reevaluate him this morning though he did not find a specific problem yesterday. The patient is awake and alert and hopefully is going to be extubated this morning. He has been tolerating tube feeds. He is alert and denies any abdominal pain or feeling of distention or nausea. He denies any pain with palpation of his abdomen. I do not see evidence of an intra- abdominal process at this point. Once he is extubated I would remove his nasogastric tube is well and we can slowly start p.o. diet. Current Visit: Yes Subjective Patient reports: Present: feels better, tolerating liquids well. Absent: still having pain, nausea, vomiting Exam - Constitutional Vitals: Period Temp Pulse Resp BP Sys/Guzman Pulse Ox Last 24 Hr 97.6 F-98.8 F 67-101 10-20 91-147/53-93 93-98 General appearance: no acute distress - Eye Eye exam: Absent: scleral icterus - Respiratory Respiratory exam: Absent: accessory muscle use - GI/Abdominal GI/Abdominal exam: Present: soft. Absent: distended, mass, tenderness, rebound - Neurological Exam Neurological exam: Present: alert, oriented X3 Results - Labs CBC & BMP: 04/20/17 05:04 04/20/17 05:04 Lab Results: I have reviewed the past 24 hour labs
[2017-04-20 08:49] LABS: ABG Base Excess -8.3 MMOL/L (-2.5-2.5); ABG HCO3 17.8 MMOL/L (20-26); ABG Oxygen Saturation 96.3 % (95-100); ABG PCO2 31.1 MM HG (35-48); ABG PH 7.335 (7.35-7.45); ABG PO2 88.1 MM HG (80-95); Pt O2 Delivery Device Ventilator
[2017-04-20 10:46] LABS: ABG Base Excess -8.5 MMOL/L (-2.5-2.5); ABG HCO3 17.6 MMOL/L (20-26); ABG Oxygen Saturation 96.2 % (95-100); ABG PH 7.315 (7.35-7.45); ABG PO2 88.7 MM HG (80-95); ABG TCO2 15.1 MMOL/L (23-27); Pt O2 Delivery Device Venturi Mask
[2017-04-20] MEDS: ONDANSETRON 4 MG/2 ML VIAL IV PRN (10:48)
[2017-04-20] MEDS: cefTRIAXone 1,000 MG in SODIUM CHLORIDE 0.9% 100 ML IV SCH (14:21)
--- NOTE | 2017-04-20 14:28 | Hospitalist Progress Note ---
Assessment and Plan (1) Respiratory failure Status: Acute Assessment and plan: 1)respiratory failure- extubated today and doing well so far. 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 3)afib- NSR with PACs on tele. on lovenox and metoprolol 4)effusions- pericardial and pleural- post op CABG. 5)anemia, thrombocytopenia- anemia holding steady since transfusion days ago and platelets improved today to normal range. On lovenox and aspirin. 6)UGIB- MWT, GE junction ulcer. on protonix. 7)DM- will stop insulin infusion coordinated with stopping TPN and begin using lantus with q4h humalog high intensity SSI. continuing tube feeds as he is very weak and will not be able to eat meals. 8)ileus- resolved. 9)MELISSA- dialysis schduled per nephrology. making some urine. 10)dispo- to [facility] tomorrow. Current Visit: Yes (2) Diabetes Status: Chronic Current Visit: No Qualifiers: Diabetes mellitus type: type 2 (3) Atrial fibrillation Problem details: Paroxysmal; early postoperative period patient has maintained normal sinus rhythm. Systemic coagulation per consulting electrical design technologist and cardiothoracic surgery service. Patient is receiving treatment dose subQ Lovenox Status: Chronic Current Visit: No (4) S/P CABG (coronary artery bypass graft) Problem details: Three-vessel coronary artery disease; internal mammary graft to the anterior descending coronary artery and saphenous vein graft to the obtuse marginal and right coronary arteries 04/02/2017 (postop day 3). Status : Chronic Current Visit: No (5) Anemia Problem details: Multifactorial including chronic disease and acute surgical blood loss. Patient remains hemodynamically stable. Continue monitoring. There is no indication for immediate blood product transfusion at present. Status: Acute Current Visit: No (6) Acute kidney injury Problem details: HD again today for volume removal. Status: Acute Current Visit: No (7) Pericardial effusion Status: Acute Current Visit: Yes (8) Bilateral pleural effusion Status: Acute Current Visit: Yes (9) Ileus Status: Acute Current Visit: Yes (10) UGI bleed Status: Acute Current Visit: Yes (11) Thrombocytopenia Status: Acute Current Visit: Yes Hospitalist: Subjective Interval history: MR Mathew did well at CPAP and Dr Yeh is going to extubate him today. He is tolerating tube feeds and we can stop the TPN and insulin infusion - I have discussed a plan for this with his nurse. He denied pain. Bowels moving. Remains on lovenox instead of coumadin in case he needs thoracentesis. I talked at length with his and daughters regarding disposition and progress and they are in favor now of transfer to LTAC as they see that he will have prolonged hospital course. We will try to arrange this for tomorrow. Exam - Constitutional Vitals: Period Temp Pulse Resp BP Sys/Guzman Pulse Ox Last 24 Hr 97.6 F-98.4 F 67-113 11-20 91-161/53-97 93-98 General appearance: normal weight, no acute distress - Head Head exam: Present: normocephalic, atraumatic - Eye Eye exam: Present: EOMI. Absent: scleral icterus - Respiratory Respiratory exam: Present: clear to auscultation bilaterally - Cardiovascular Cardiovascular exam: Present: irregular rhythm - GI/Abdominal GI/Abdominal exam: Present: normal bowel sounds, soft. Absent: tenderness - Extremities Exam Extremities exam: Absent: edema - Neurological Exam Neurological exam: Present: alert, motor sensory deficit (general weakness in all extremities.) - Skin Skin exam: Present: warm, dry Results - Labs CBC & BMP: 04/20/17 05:04 04/20/17 05:04 Lab Results: I have reviewed the past 24 hour labs
[2017-04-20] MEDS ORDERED: METOPROLOL TARTRATE 25 MG TABLET PO ONE (14:33)
[2017-04-20] MEDS ORDERED: INSULIN GLARGINE 100 UNIT/ML SUBCUT ONE (15:30)
[2017-04-20] MEDS: INSULIN REGULAR 100 UNIT/ML SUBCUT SCH ×2 (16:00→20:19)
[2017-04-20] MEDS ORDERED: cefTRIAXone 1,000 MG in SODIUM CHLORIDE 0.9% 100 ML IV SCH (17:00)
--- NOTE | 2017-04-20 17:32 | Dialysis Note ---
Dialysis Note - Dialysis Note Mr. Mathew is seen during his hemodialysis. He is tolerating it well. He is now extubated and his blood pressure stable during hemodialysis.
[2017-04-20] MEDS ORDERED: METOPROLOL TARTRATE 25 MG TABLET PO SCH (21:00)
[2017-04-21] MEDS: INSULIN REGULAR 100 UNIT/ML SUBCUT SCH ×4 (00:09→12:14)
[2017-04-21] MEDS: ALBUTEROL/IPRATROPIUM 3 ML NEB RESP TX SCH ×2 (00:44→08:52)
[2017-04-21] MEDS: MORPHINE 2 MG/1 ML SYRINGE IV PRN ×2 (01:15→02:33)
[2017-04-21 04:32] LABS: Albumin 2.6 G/DL (3.4-5.0); Bilirubin,Total 0.7 MG/DL (0.2-1.0); Calcium 8.7 MG/DL (8.5-10.1); Magnesium 2.7 MG/DL (1.8-2.4); Osmolality,Calculated 313.1 MOS/KG (273-304); Potassium 5.3 MMOL/L (3.5-5.1); Total Protein 6.3 G/DL (6.4-8.3)
[2017-04-21 04:49] LABS: Phosphorous 8.1 MG/DL (2.5-4.9); Prealbumin 56.4 MG/DL (20-40)
[2017-04-21] MEDS: ONDANSETRON 4 MG/2 ML VIAL IV PRN (05:46)
--- NOTE | 2017-04-21 05:52 | Pulmonology Progress Note ---
Pulmonary - PN: Subj Interval history: This 67-year-old white male had coronary bypass surgery a couple weeks back. Came back in with respiratory failure. Has small pleural effusions more on the left than the right. He has COPD. His sputum is thick. He was given bronchodilators in the emergency room but they were not continued back here. Will add bronchodilators and Pulmozyme. Also both with steroids. Broaden antibiotics. Sputum culture. His PO2 is 177. We can reduce FiO2 and start weaning trials. 04/13/2017 patient has increased abdominal girth and his abdomen is tight. Chest x-ray looks a little better. Creatinine has risen to 5.3. I do not think he is ready for extubation yet but will start weaning trials. Needs abdomen evaluated further. Abdominal film is nonspecific. Concerned about bowel ischemia. 04/14/2017 patient had dialysis yesterday. His abdomen is less tight. His acidosis has been corrected. He will need further dialysis however. X-ray does look wet. Not able to do any weaning trials as yet. He does have COPD. 04/20/17 patient has been dialyzed daily for 5 days with a good bit of fluid taken off. Doing much better on prolonged CPAP. Will check mechanics and ABGs on CPAP today and see if we can get him extubated. PO2 is 87 but is on 50%. 04/21/2017 patient was extubated without difficulty. ABGs acceptable. He was dialyzed again yesterday. Chest x-ray still showing that he is a little ahead on fluids. Patient having some vomiting this morning. We will stop NG feedings and put on NG suction for now. Exam (Progress Note) - Constitutional Vitals: Period Temp Pulse Resp BP Sys/Guzman Pulse Ox Last 24 Hr 97.0 F-98.4 F 83-117 13-23 91-168/53-103 90-97 Exam: Patient is alert, fairly calm, responsive. Vital signs normal. Pupils react to light. O2 sat 96% on nasal oxygen. Neck is supple. Chest reveals prolonged expiratory phase. Heart normal rate and rhythm no murmurs. Abdomen a little softer than yesterday, and he has abdominal wall edema. Extremities no clubbing or cyanosis. he does have a 1+ edema. Results - Labs CBC & BMP: 04/20/17 05:04 04/21/17 03:57 Lab Results: I have reviewed the past 24 hour labs - Diagnostic Findings Procedure: Chest x-ray: image reviewed by me (Bilateral lower lobe infiltrates unchanged from before. A little more prominent since he has not hyperinflated from the mechanical ventilation.) Assessment and Plan (1) Diabetes Status: Chronic Assessment and plan: Sliding scale insulin. Patient was on metformin prior to admission and has some renal insufficiency at present. May be an element of lactic acidosis related to that. We will hold the metformin. 04/12/2017 acidosis corrected. Glucoses running in the 300s. Will add some Humulin 70/30 in addition to sliding scale. 04/13/2017 continuing sliding scale. Glucoses in 200s. 04/14/2017 blood sugars still a little on the high side. Defer to hospitalist. 04/20/2017 blood sugars look well controlled at the present time. 04/21/2017 blood sugars look okay. Current Visit: No Qualifiers: Diabetes mellitus type: type 2 (2) S/P CABG (coronary artery bypass graft) Problem details: Three-vessel coronary artery disease; internal mammary graft to the anterior descending coronary artery and saphenous vein graft to the obtuse marginal and right coronary arteries 04/02/2017 (postop day 3). Status : Chronic Assessment and plan: No evidence of any infection at the surgical wound site. He does have small pleural effusions left greater than right that may be related to that. Does not appear to be in alice failure. 04/12/2017 has small pleural effusions. Wounds appear to be intact. LV function appears intact. 04/13/2017 watching pleural effusions. May need drainage of the one on left if it increases anymore. 04/14/2017 does not appear to be in alice failure and no evidence of myocardial infarction 04/20/2017 congestive heart failure has improved with offloading of fluid with dialysis. 04/21/2017 again fluid was offloaded with dialysis last night. Current Visit: No (3) Acute kidney injury Problem details: HD again today for volume removal. Status: Acute Assessment and plan: Mild elevation of creatinine and potassium. Metformin being held. 04/12/2017 creatinine up to 4.2. May need nephrology to see her. 04/13/2017 creatinine up to 5.3. Nephrology seeing. Urine output is quite low 04/14/2017 had dialysis yesterday and will be dialyzed today. We need to take off a good bit of fluid in order to wean him. He has anasarca. 04/20/2017 creatinine 4.8. He has been dialyzed 5 days in a row. Defer to nephrology on additional dialysis. 04/21/2017 requiring dialysis intermittently. Current Visit: No (4) Respiratory failure Status: Acute Assessment and plan: We will adjust ventilator and wean as tolerated 04/12/2017 PO2 much improved. Start weaning trials. He does have COPD and were added bronchodilators and steroids. 04/13/2017 ABGs improved. Do not think he is ready to be extubated until abdominal process is defined and improved. 04/14/2017 we will try to get his FiO2 down to 60% by increasing PEEP to 6. His need PO2 in the 60s. Can adjust as needed. Hopefully this will improve with offloading more fluid. 04/20/2017 tolerating CPAP well. Will see if I can get him extubated today. 04/21/2017 patient was extubated without difficulty. O2 sats look good. Chest x -ray is still marginal. Current Visit: Yes
[2017-04-21] MEDS: methylPREDNISolone SOD SUC 40 MG/1 ML VIAL IV SCH (06:30)
--- NOTE | 2017-04-21 06:31 | Cardiology Progress Note ---
Cardiology - PN: Subj Interval history: Cardiology note 67-year-old man status post three-vessel CABG April 02, 2017. Readmitted with decompensated COPD Extubated yesterday. Patient alert and awake and at bedside. Vomited this morning and back on low wall suction. Patient had BM 1 hour ago. Telemetry shows atrial fib ventricular rate around 110 Blood pressure 160/86 O2 sat 96 on 4 L cannula. Irregular rhythm no murmur Decreased breath sounds with scattered rhonchi Abdomen mildly distended but nontender Vein incision sites look good. Trace leg edema Lab data today Sodium 135 potassium 5.3 chloride 100 CO2 21 BUN 98 creatinine 4.20 Glucose 332 magnesium 2.7 Chest x-ray shows cardiomegaly and still looks wet. Impression Status post three-vessel CABG April 02, 2017 with USE graft to LAD, vein graft OM and vein graft RCA Recurrent atrial fibrillation Respiratory failure/decompensated COPD Acute renal failure superimposed on chronic renal insufficiency now on dialysis Diabetes Plan Tube feedings on hold Lovenox Accu-Chek sugars Pulmonary toilet, antibiotics and steroids Increase metoprolol 50 mg twice daily Exam (Progress Note) - Constitutional Vitals: Period Temp Pulse Resp BP Sys/Guzman Pulse Ox Last 24 Hr 97.0 F-98.4 F 83-117 13-23 91-168/53-103 90-97 Result/EKG - Labs CBC & BMP: 04/20/17 05:04 04/21/17 03:57 Labs: Laboratory Results - last 24 hr 04/20/17 04/20/17 04/20/17 05:04 07:09 08:00 ABG pH ABG pCO2 ABG pO2 ABG HCO3 ABG Total CO2 ABG O2 Saturation ABG Base Excess FiO2 Sodium 133 L Potassium 5.0 Chloride 101 Carbon Dioxide 16 L Anion Gap 21.0 H BUN 111 H Creatinine 4.80 H GFR Calculation 13 BUN/Creatinine Ratio 23.00 H Glucose 103 POC Glucose 101 102 Calculated Osmolality 300.4 Calcium 8.4 L Phosphorus Magnesium 2.9 H Total Bilirubin 0.80 AST 27 ALT 224 H Alkaline Phosphatase 88 Total Protein 5.5 L Albumin 2.2 L Globulin 3.3 Albumin/Globulin Ratio 0.6 L Prealbumin 04/20/17 04/20/17 04/20/17 08:45 09:09 10:18 ABG pH 7.335 L ABG pCO2 31.1 L ABG pO2 88.1 ABG HCO3 17.8 L ABG Total CO2 15.0 L ABG O2 Saturation 96.3 ABG Base Excess -8.3 L FiO2 50.00 Sodium Potassium Chloride Carbon Dioxide Anion Gap BUN Creatinine GFR Calculation BUN/Creatinine Ratio Glucose POC Glucose 108 H 90 Calculated Osmolality Calcium Phosphorus Magnesium Total Bilirubin AST ALT Alkaline Phosphatase Total Protein Albumin Globulin Albumin/Globulin Ratio Prealbumin 04/20/17 04/20/17 04/20/17 10:40 11:12 12:19 ABG pH 7.315 L ABG pCO2 33.0 L ABG pO2 88.7 ABG HCO3 17.6 L ABG Total CO2 15.1 L ABG O2 Saturation 96.2 ABG Base Excess -8.5 L FiO2 50.00 Sodium Potassium Chloride Carbon Dioxide Anion Gap BUN Creatinine GFR Calculation BUN/Creatinine Ratio Glucose POC Glucose 111 H 92 Calculated Osmolality Calcium Phosphorus Magnesium Total Bilirubin AST ALT Alkaline Phosphatase Total Protein Albumin Globulin Albumin/Globulin Ratio Prealbumin 04/20/17 04/20/17 04/20/17 13:05 14:21 15:13 ABG pH ABG pCO2 ABG pO2 ABG HCO3 ABG Total CO2 ABG O2 Saturation ABG Base Excess FiO2 Sodium Potassium Chloride Carbon Dioxide Anion Gap BUN Creatinine GFR Calculation BUN/Creatinine Ratio Glucose POC Glucose 104 105 107 H Calculated Osmolality Calcium Phosphorus Magnesium Total Bilirubin AST ALT Alkaline Phosphatase Total Protein Albumin Globulin Albumin/Globulin Ratio Prealbumin 04/20/17 04/20/17 04/21/17 16:00 20:13 00:05 ABG pH ABG pCO2 ABG pO2 ABG HCO3 ABG Total CO2 ABG O2 Saturation ABG Base Excess FiO2 Sodium Potassium Chloride Carbon Dioxide Anion Gap BUN Creatinine GFR Calculation BUN/Creatinine Ratio Glucose POC Glucose 159 H 260 H 278 H Calculated Osmolality Calcium Phosphorus Magnesium Total Bilirubin AST ALT Alkaline Phosphatase Total Protein Albumin Globulin Albumin/Globulin Ratio Prealbumin 04/21/17 04/21/17 04/21/17 03:56 03:57 03:57 ABG pH ABG pCO2 ABG pO2 ABG HCO3 ABG Total CO2 ABG O2 Saturation ABG Base Excess FiO2 Sodium 135 L Potassium 5.3 H Chloride 100 Carbon Dioxide 21 Anion Gap 19.3 H BUN 98 H D Creatinine 4.20 H GFR Calculation 16 BUN/Creatinine Ratio 23.00 H Glucose 332 H POC Glucose 317 H Calculated Osmolality 313.1 H Calcium 8.7 Phosphorus 8.1 H Magnesium 2.7 H Total Bilirubin 0.70 AST 31 ALT 219 H Alkaline Phosphatase 118 H Total Protein 6.3 L Albumin 2.6 L Globulin 3.7 H Albumin/Globulin Ratio 0.7 L Prealbumin 56.4 H
[2017-04-21 07:41] LABS: ABG Base Excess -5.6 MMOL/L (-2.5-2.5); ABG HCO3 19.8 MMOL/L (20-26); ABG Oxygen Saturation 94.6 % (95-100); ABG PH 7.342 (7.35-7.45); ABG PO2 77.9 MM HG (80-95); ABG TCO2 17.3 MMOL/L (23-27)
--- NOTE | 2017-04-21 07:50 | XRay Report ---
XR chest 1V portable Indication: Ventilator patient Comparison: 20 April 2017 Findings: The heart and mediastinum are stable in size and configuration. Endotracheal tube is been removed. Remaining support structures appear unchanged from previous. The pulmonary vascularity is increased with bilateral increased interstitial lung density similar to previous. There is increased alveolar density in the left lung base. No other lung infiltrates, effusions, pneumothorax or other abnormality is demonstrated. Impression: Endotracheal tube is been removed. Left lower lung increased density could indicate atelectasis. PROCEDURE INTERPRETED AT [facility] DEPARTMENT OF RADIOLOGY Final Report Signed by: Dr. Ruy Floyd
[2017-04-21] MEDS: SERTRALINE 25 MG TABLET PO SCH (08:05)
[2017-04-21] MEDS: ASPIRIN EC 81 MG TABLET PO SCH (08:06)
[2017-04-21] MEDS: PANTOPRAZOLE 40 MG VIAL IV SCH (08:06)
[2017-04-21] MEDS: ENOXAPARIN 100 MG/ML SYRINGE SUBCUT SCH ×2 (08:06→08:48)
--- NOTE | 2017-04-21 08:22 | Discharge Summary ---
Hospital Course - Hospital Course Hospital Course: Mr. Luis Mathew is a 67 year old black male with a history of gerd, htn, CVA, CAD, afib, peripheal neuropathy, dm, dyslipidemia, thyroid disorder, and copd presented that presented to the ED on 04/11 for further evaluation of nausea, vomiting, and diarrhea. Pt. had just been recently discharged on 04/07 after undergoing a CABG by Dr. Larry on 04/02 with SUE to the LAD, SVG to the OM, and S SVG to RCA. Pt. had been doing well at time of discharge and reportedly continued his progress at home up until the day before admission. The patient was noted to have become ill. He became nauseous, vomited, and was slightly short of breath as well. On arrival to the ED, pt became hypotensive and bradycardiac and required emergent CPR and subsequent intubation. Labs at the time revealed H&H 8/24.3, Na 129, K 6.6, BUN 50, creatinine 2.90, glucose 330, AST/ALT 182/187, troponin 0.145, lactic acid 4.6, and BNP of 239. Pt. was admitted to the hospitalist service and place in the ICU for close monitoring. The patient has a lengthy hospital stay. He was seen and evaluated by multiple services (Cardiology, Nephrology, Pulmonology, GI, and Surgery). Cardiology evaluated patient for possible STEMI on EKG that was determined to be an NSTEMI due to metabolic changes. Pulmonary managed vent settings for patient. He is currently still intubated but will be started on weaning trials in the following days. GI evaluated pt for GI bleed and he was found to have a Liza Meza tear which was discovered on EGD, hernia, and junction ulcer. UPdate:: he was etubated yesterday and had done well. He will go to LTAC today and continue with tube feedings for now while he gains strength. His and daughters are in agreement with the transfer now that he is extubated. His steroids have been cut in half today and his insulin increased. His glucose should be monitored carefully because he had some difficulty with both high and low sugar in the hospital. He remains on IV antibiotics. His gann is removed. He will be dialyzed prn by nephrology. He continues to make urine but has not dropped his creatinine. - Time spent with patient Time with patient DS: Greater than 30 minutes (50 minutes were spent in family discussion, care coordination and discharge planning and documentation and medicine reconciliation.) Diagnosis - Discharge Diagnosis (1) Respiratory failure Status: Acute (2) Diabetes Status: Chronic (3) Atrial fibrillation Status: Chronic (4) S/P CABG (coronary artery bypass graft) Status: Chronic (5) Anemia Status: Acute (6) Acute kidney injury Status: Acute (7) Pericardial effusion Status: Acute (8) Bilateral pleural effusion Status: Acute (9) Ileus Status: Acute (10) UGI bleed Status: Acute (11) Thrombocytopenia Status: Acute Discharge Plan - Discharge Data Disposition: Disch/[facility]fer to [facility] Condition at Discharge: Guarded Discharge Diet: other (tube feed diet) Activity: as per physical therapy, increase activity as tolerated - Discharge Medications New Albuterol/Ipratropium Neb [Duoneb] 3 ml RESP TX RT Q6H Aspirin EC Tab 81 mg PO DAILY tablet cefTRIAXone [Rocephin] 1,000 mg IV Q24H vial Glucagon 1 mg IM PRN PRN vial PRN Reason: Hypoglycemia w/o IV access Heparin Inj 2,000 unit IV .FOR DIALYSIS vial HYDROcodone/ACETAMIN 5-325 [[place] 5-325] 1 tablet PO Q6H PRN #10 tablet PRN Reason: pain Levofloxacin Inj [Levaquin Inj] 250 mg IV Q48H methylPREDNISolone SOD SUC INJ [SoluMEDROL] 20 mg IV Q12H vial Ondansetron Inj [Zofran Inj] 4 mg IV Q4H PRN vial PRN Reason: Nausea Pantoprazole Inj [Protonix Inj] 40 mg IV BID vial Promethazine Inj [Phenergan Inj] 25 mg IV Q6H PRN vial PRN Reason: Nausea/Vomiting Sertraline [Zoloft] 25 mg PO DAILY tablet Insulin Glargine [Lantus] 40 unit SUBCUT DAILY #10 ml Acetaminophen Tab [Tylenol Tab] 650 mg PO Q4H PRN tablet PRN Reason: Fever, Headache, Mild Pain Apixaban [Eliquis] 2.5 mg PO BID #60 tablet Dextrose 50% [D50] 25 gm IV PRN PRN vial PRN Reason: Hypoglycemia with IV access Insulin Regular [HumuLIN R] See Protocol SUBCUT Q4H unit Metoprolol Tartrate Tab [Lopressor Tab] 50 mg PO BID tablet Discontinued diphenhydrAMINE CAP [Benadryl Cap] 25 mg PO Q6H PRN PRN Reason: Itching Methocarbamol Tab [Robaxin Tab] 750 mg PO DAILY PRN PRN Reason: Muscle Spasm Lidocaine 5% Patch [Lidoderm 5% Patch] 1 patch TRANSDERM DAILY PRN PRN Reason: Pain Diphenoxylate/Atrop 2.5-0.025 [Lomotil Tab] 2 tablet PO Q6H PRN PRN Reason: Diarrhea Acyclovir [Zovirax Cap/Tab] 400 mg PO 5X DAILY PRN PRN Reason: FEVER BLISTERS [place]-3 Fatty Acids [Fish Oil] 1,000 mg PO DAILY Apixaban [Eliquis] 5 mg PO BID Zolpidem Tartrate [Ambien Cr] 12.5 mg PO BEDTIME Magnesium Chloride [Slow Mag] 64 mg PO BID Aspirin [Ecotrin] 81 mg PO BEDTIME Vitamin E 400 unit PO DAILY Glimepiride [Amaryl] 4 mg PO BID W/MEALS Gemfibrozil 600 mg PO BID metFORMIN [Glucophage] 1,000 mg PO BID W/MEALS Esomeprazole Magnesium [Nexium] 40 mg PO BEDTIME Multivit-Min/FA/Lutein/Zeaxant [Icaps Mv Tablet] 1 tablet PO DAILY Furosemide 20 mg PO DAILY Gabapentin 300 mg PO BID dilTIAZem HCl [Diltiazem ER (24 hr)] 120 mg PO BID Lisinopril [Lisinopril] 20 mg PO DAILY Hydrocodone/Acetaminophen [Lortab 10-325 mg Tablet] 1 each PO Q8H PRN PRN Reason: Pain Rosuvastatin Calcium [Crestor] 40 mg PO BEDTIME Carvedilol [Coreg] 6.25 mg PO BID Amiodarone Tab [Cordarone Tab] 200 mg PO BID tablet Docusate Sodium Cap [Colace Cap] 100 mg PO DAILY capsule Ferrous Sulfate Tab [Feosol Original Tab] 325 mg PO DAILY tablet Magnesium Hydroxide Susp [Milk of Magnesia] 30 ml PO Q6H PRN PRN Reason: Constipation Multivitamin (Ocuvite) [Ocuvite] 1 tablet PO DAILY tablet sitaGLIPtin [Januvia] 100 mg PO DAILY tablet Insulin Glargine,Hum.rec.anlog [Lantus SoloStar] 10 units PO QPM - Follow Up or Referral - Forms/Instructions Instructions: Hemodialysis (GEN), Dialysis Diet (GEN) Additional Discharge Instructions: consultants cardiology, nephrology, general surgery, pulmonary Exam - Constitutional Vitals: Period Temp Pulse Resp BP Sys/Guzman Pulse Ox Last 24 Hr 97.0 F-98.4 F 83-117 13-23 109-168/74-103 90-97 General appearance: normal weight, no acute distress - Eye Eye exam: Present: EOMI. Absent: scleral icterus - Respiratory Respiratory exam: Present: rhonchi - Cardiovascular Cardiovascular exam: Present: irregular rhythm - GI/Abdominal GI/Abdominal exam: Present: normal bowel sounds, soft. Absent: tenderness - Extremities Exam Extremities exam: Absent: edema Discharge Results Procedures and tests throughout hospitalization: Pending Orders 04/22/17 04:00 Comprehensive Metabolic Panel IN AM Magnesium IN AM 04/23/17 04:00 Comprehensive Metabolic Panel IN AM Magnesium IN AM 04/24/17 04:00 Comprehensive Metabolic Panel IN AM Labs on day of discharge: Labs from last 24 hours 04/21/17 04/21/17 04/21/17 07:40 07:18 03:57 ABG pH 7.342 L ABG pCO2 36.0 ABG pO2 77.9 L ABG HCO3 19.8 L ABG Total CO2 17.3 L ABG O2 Saturation 94.6 L ABG Base Excess -5.6 L FiO2 32.00 Sodium 135 L Potassium 5.3 H Chloride 100 Carbon Dioxide 21 Anion Gap 19.3 H BUN 98 H D Creatinine 4.20 H GFR Calculation 16 BUN/Creatinine Ratio 23.00 H Glucose 332 H POC Glucose 273 H Calculated Osmolality 313.1 H Calcium 8.7 Phosphorus Magnesium 2.7 H Total Bilirubin 0.70 AST 31 ALT 219 H Alkaline Phosphatase 118 H Total Protein 6.3 L Albumin 2.6 L Globulin 3.7 H Albumin/Globulin Ratio 0.7 L Prealbumin 04/21/17 04/21/17 04/21/17 03:57 03:56 00:05 ABG pH ABG pCO2 ABG pO2 ABG HCO3 ABG Total CO2 ABG O2 Saturation ABG Base Excess FiO2 Sodium Potassium Chloride Carbon Dioxide Anion Gap BUN Creatinine GFR Calculation BUN/Creatinine Ratio Glucose POC Glucose 317 H 278 H Calculated Osmolality Calcium Phosphorus 8.1 H Magnesium Total Bilirubin AST ALT Alkaline Phosphatase Total Protein Albumin Globulin Albumin/Globulin Ratio Prealbumin 56.4 H 04/20/17 04/20/17 04/20/17 20:13 16:00 15:13 ABG pH ABG pCO2 ABG pO2 ABG HCO3 ABG Total CO2 ABG O2 Saturation ABG Base Excess FiO2 Sodium Potassium Chloride Carbon Dioxide Anion Gap BUN Creatinine GFR Calculation BUN/Creatinine Ratio Glucose POC Glucose 260 H 159 H 107 H Calculated Osmolality Calcium Phosphorus Magnesium Total Bilirubin AST ALT Alkaline Phosphatase Total Protein Albumin Globulin Albumin/Globulin Ratio Prealbumin 04/20/17 04/20/17 04/20/17 14:21 13:05 12:19 ABG pH ABG pCO2 ABG pO2 ABG HCO3 ABG Total CO2 ABG O2 Saturation ABG Base Excess FiO2 Sodium Potassium Chloride Carbon Dioxide Anion Gap BUN Creatinine GFR Calculation BUN/Creatinine Ratio Glucose POC Glucose 105 104 92 Calculated Osmolality Calcium Phosphorus Magnesium Total Bilirubin AST ALT Alkaline Phosphatase Total Protein Albumin Globulin Albumin/Globulin Ratio Prealbumin 04/20/17 04/20/17 04/20/17 11:12 10:40 10:18 ABG pH 7.315 L ABG pCO2 33.0 L ABG pO2 88.7 ABG HCO3 17.6 L ABG Total CO2 15.1 L ABG O2 Saturation 96.2 ABG Base Excess -8.5 L FiO2 50.00 Sodium Potassium Chloride Carbon Dioxide Anion Gap BUN Creatinine GFR Calculation BUN/Creatinine Ratio Glucose POC Glucose 111 H 90 Calculated Osmolality Calcium Phosphorus Magnesium Total Bilirubin AST ALT Alkaline Phosphatase Total Protein Albumin Globulin Albumin/Globulin Ratio Prealbumin 04/20/17 04/20/17 09:09 08:45 ABG pH 7.335 L ABG pCO2 31.1 L ABG pO2 88.1 ABG HCO3 17.8 L ABG Total CO2 15.0 L ABG O2 Saturation 96.3 ABG Base Excess -8.3 L FiO2 50.00 Sodium Potassium Chloride Carbon Dioxide Anion Gap BUN Creatinine GFR Calculation BUN/Creatinine Ratio Glucose POC Glucose 108 H Calculated Osmolality Calcium Phosphorus Magnesium Total Bilirubin AST ALT Alkaline Phosphatase Total Protein Albumin Globulin Albumin/Globulin Ratio Prealbumin DS: Provider Date of admission: 04/11/17 08:27 Primary care physician: . No PCP Attending physician on admission: Singh Townsend MD Consults: 04/11/17 08:29 Consult to Physician [CONS] Routine Comment: Consulting Provider: Barron Johnson Jr. Consulting Provider Notified: Yes When should Consulting Provider be notified: Now Consult to Physician [CONS] Routine Comment: Consulting Provider: Karan Yeh When should Consulting Provider be notified: Now 04/11/17 16:20 Consult to Pastoral Services [CONS] Routine Comment: Pastoral Screen: Critical Diagnosis Pastoral Screen Source of Request: Family 04/13/17 08:04 Consult to Dietitian [CONS] Routine Reason for Dietitian: TF-Initiate/Manage 04/13/17 08:05 Consult to Physician [CONS] Routine Comment: bowel obstruction vs ileus Consulting Provider: Chris Gifford III. When should Consulting Provider be notified: Now Person Notified: Dr Balta MATTHEWS Date Notified: 04/13/17 Time Notified: 08:37 Consult Notification Comment: notified of consult 04/13/17 10:58 Consult to Physician [CONS] Routine Comment: large pericardial effusion Consulting Provider: Severino Mendieta 04/13/17 11:47 Consult to Physician [CONS] Routine Comment: dialysis catheter Consulting Provider: Jose Luis Castillo When should Consulting Provider be notified: Now 04/13/17 11:56 Consult to Dietitian [CONS] Routine Reason for Dietitian: TPN/PPN-Initiate/Manage 04/13/17 19:04 Consult to Physician [CONS] Routine Comment: acute gi Consulting Provider: Carlos Vicente When should Consulting Provider be notified: Now 04/15/17 13:57 Consult to Case Mgmt/Social Srvs [CONS] Routine Reason for Case Mgmt/Social Srvs: LTAC Consult Comment: CONSULT [facility], FOR POSSIBLE TRANSFER THURSDAY? 04/18/17 09:15 Consult to Pharmacy [CONS] Routine Reason for Pharmacy Consult: Adjust Meds Renal Funct 04/18/17 10:15 Consult to Pharmacy [CONS] Routine Reason for Pharmacy Consult: Adjust Meds Renal Funct 04/20/17 07:00 Consult to Dietitian [CONS] Routine Reason for Dietitian: TF-Initiate/Manage Discharging clinician: Laura Vaughn MD
[2017-04-21] MEDS ORDERED: METOPROLOL TARTRATE 50 MG TABLET PO SCH (09:00)
[2017-04-21] MEDS ORDERED: INSULIN GLARGINE 100 UNIT/ML SUBCUT SCH (09:00)
[2017-04-21] MEDS ORDERED: APIXABAN 2.5 MG TABLET PO SCH (09:00)
[2017-04-21 13:12] VITALS: BP 140/84
[2017-04-21] MEDS ORDERED: INSULIN GLARGINE 100 UNIT/ML SUBCUT ONE (15:30)
== END 2017-04-21 13:28 | DRG 207 ==
LOC: N.ED 06:28 → N.EDINP 08:27 → SUATTDRO 08:27 → N.ICU 09:31
PROVIDERS: ADMIT Internal Medicine; ATTEND Internal Medicine

== ENCOUNTER 2017-07-10 08:09 | Inpatient (IN) ==
[2017-07-10 08:44] LABS: Basophils % 0.6 % (0.0-0.8); Eosinophils # 0.2 10*3/uL (0.0-0.87); Eosinophils % 2.6 % (0.00-10.9); Hematocrit 24.1 VOL% (42.0-52.0); Hemoglobin 8.3 GM/DL (14.0-18.0); Immature Granulocytes % 0.4 %; Immature Granulocytes Absolute 0.03 #; Lymphocytes # 0.9 10*3/uL (1.4-4.0); Lymphocytes % 12.6 % (21.2-54.2); Mean Corpuscular HGB Conc 34.4 GM/DL (32-36); Mean Corpuscular Hemoglobin 29 PG (27-34); Mean Corpuscular Volume 85.5 FL (87-102); Mean Platelet Volume 10.7 FL (9.6-12.0); Monocytes # 0.8 10*3/uL (0.11-0.8); Monocytes % 11.3 % (1.7-12.7); Neutrophils # 5.1 10*3/uL (1.4-7.4); Neutrophils % 72.5 % (38.7-73.9); Platelet Count 118 T/CUMM (130-400); Red Blood Count 2.82 MC/CUMM (3.8-5.5)
[2017-07-10 09:12] LABS: Albumin 3.1 G/DL (3.4-5.0); Bilirubin,Total 0.5 MG/DL (0.2-1.0); Magnesium 2.4 MG/DL (1.8-2.4); Osmolality,Calculated 278.2 MOS/KG (273-304); Potassium 3.3 MMOL/L (3.5-5.1); Thyroid Stimulating Hormone 39.7 uIU/ml (0.358-3.74); Total Protein 7.5 G/DL (6.4-8.3); Troponin I Only 0.03 NG/ML (0.00-0.045)
[2017-07-10] MEDS ORDERED: MORPHINE 2 MG/1 ML SYRINGE IV STA (09:16)
[2017-07-10] MEDS ORDERED: FUROSEMIDE 40 MG/4 ML VIAL IV STA (09:17)
[2017-07-10] MEDS ORDERED: FUROSEMIDE 100 MG/10 ML VIAL ONE (09:28)
[2017-07-10] MEDS ORDERED: MORPHINE 2 MG/1 ML SYRINGE ONE (09:28)
[2017-07-10 09:37] LABS: Amorphous Crystals,Urine Occasional /HPF (Few); Apearance,Urine Slightly Hazy (Clear); Bilirubin,Urine Negative (Negative); Blood, Urine Negative (Negative); Glucose,Urine (UA) Negative (Negative); Ketones,Urine Negative (Negative); Mucus,Urine Occasional /LPF (Occasional); Nitrite,Urine Negative (Negative); Protein,Urine 30 MG/DL; RBC,Urine 1 /HPF (0-4); Urine Color Yellow (Yellow); Urine Specific Gravity 1.017 (1.001-1.035); Urine Urobilinogen < 2.0 EU/DL (0.2-1.0); WBC,Urine <1 /HPF (0-6)
[2017-07-10] MEDS ORDERED: ONDANSETRON 4 MG/2 ML VIAL IV PRN (10:38)
[2017-07-10] MEDS: POTASSIUM CHLORIDE 20 MEQ TABLET PO PRN ×2 (12:25→14:33)
[2017-07-10] MEDS ORDERED: POTASSIUM CHLORIDE 20 MEQ TABLET PO ONE (14:28)
[2017-07-10] MEDS ORDERED: CARVEDILOL 3.125 MG TABLET ONE (15:34)
[2017-07-10] MEDS: CARVEDILOL 12.5 MG TABLET PO SCH ×2 (15:48→22:00)
[2017-07-10] MEDS ORDERED: DEXTROSE 50% 25 GM/50 ML VIAL IV PRN (17:27)
[2017-07-10] MEDS ORDERED: GLUCAGON 1 MG VIAL IM PRN (17:27)
[2017-07-10] MEDS: INSULIN LISPRO 100 UNIT/ML SUBCUT SCH ×2 (18:16→22:00)
[2017-07-10] MEDS: FUROSEMIDE 40 MG/4 ML VIAL IV SCH (18:21)
[2017-07-10] MEDS ORDERED: niCARdipine INJ 25 MG in SODIUM CHLORIDE 0.9% 240 ML IV SCH (18:30)
[2017-07-10] MEDS: DOCUSATE SODIUM 100 MG CAPSULE PO SCH (22:00)
[2017-07-10] MEDS: AMIODARONE 200 MG TABLET PO SCH (22:00)
[2017-07-10] MEDS: APIXABAN 2.5 MG TABLET PO SCH (22:00)
[2017-07-10] MEDS: INSULIN GLARGINE 100 UNIT/ML SUBCUT SCH (22:00)
[2017-07-10] MEDS: POLYETHYLENE GLYCOL POWDER 17 GM PACK PO SCH (22:01)
[2017-07-11 05:11] LABS: Basophils % 0.7 % (0.0-0.8); Eosinophils # 0.2 10*3/uL (0.0-0.87); Eosinophils % 3.1 % (0.00-10.9); Hematocrit 25.2 VOL% (42.0-52.0); Hemoglobin 8.6 GM/DL (14.0-18.0); Immature Granulocytes % 0.3 %; Immature Granulocytes Absolute 0.02 #; Lymphocytes % 16.7 % (21.2-54.2); Mean Corpuscular HGB Conc 34.1 GM/DL (32-36); Mean Corpuscular Hemoglobin 29 PG (27-34); Mean Corpuscular Volume 84.6 FL (87-102); Mean Platelet Volume 10.9 FL (9.6-12.0); Monocytes # 0.8 10*3/uL (0.11-0.8); Neutrophils # 3.8 10*3/uL (1.4-7.4); Neutrophils % 66.2 % (38.7-73.9); Platelet Count 142 T/CUMM (130-400); Red Blood Count 2.98 MC/CUMM (3.8-5.5); Red Cell Distribution Width 14.8 % (9.3-17.3); White Blood Count 5.8 T/CUMM (4-12)
[2017-07-11 05:54] LABS: Calcium 8.4 MG/DL (8.5-10.1); Magnesium 2.2 MG/DL (1.8-2.4); Osmolality,Calculated 280.1 MOS/KG (273-304); Potassium 2.9 MMOL/L (3.5-5.1); Risk Ratio 2.82; Thyroid Stimulating Hormone 21.5 uIU/ml (0.358-3.74); VLDL CHOLESTEROL 22.4 MG/DL
[2017-07-11] MEDS: POTASSIUM CHLORIDE 20 MEQ TABLET PO PRN (06:03)
[2017-07-11] MEDS: LEVOTHYROXINE 100 MCG TABLET PO SCH (06:03)
[2017-07-11] MEDS: INSULIN LISPRO 100 UNIT/ML SUBCUT SCH ×4 (08:32→22:01)
[2017-07-11] MEDS ORDERED: POTASSIUM CHLORIDE 20 MEQ TABLET PO ONE (09:00)
[2017-07-11] MEDS ORDERED: ASPIRIN EC 81 MG TABLET PO SCH (09:00)
[2017-07-11] MEDS ORDERED: SERTRALINE 25 MG TABLET PO SCH (09:00)
[2017-07-11] MEDS ORDERED: PANTOPRAZOLE 40 MG TABLET PO SCH (09:00)
[2017-07-11] MEDS ORDERED: OMEGA 3 ACID ETHYL ESTERS 1 GM CAPSULE PO SCH (09:00)
[2017-07-11] MEDS: FUROSEMIDE 40 MG/4 ML VIAL IV SCH ×2 (09:02→17:22)
[2017-07-11] MEDS: ROSUVASTATIN 20 MG TABLET PO SCH (09:02)
[2017-07-11] MEDS: CARVEDILOL 12.5 MG TABLET PO SCH ×2 (09:03→21:21)
[2017-07-11] MEDS: DOCUSATE SODIUM 100 MG CAPSULE PO SCH ×2 (09:03→21:21)
[2017-07-11] MEDS: hydrALAZINE 25 MG TABLET PO SCH ×3 (09:03→21:20)
[2017-07-11] MEDS: APIXABAN 2.5 MG TABLET PO SCH ×2 (09:03→21:21)
[2017-07-11] MEDS: AMIODARONE 200 MG TABLET PO SCH ×2 (09:03→21:21)
[2017-07-11] MEDS: POTASSIUM CHLORIDE RIDER 10 MEQ in PREMIX 1 EACH IV SCH ×4 (09:03→13:40)
[2017-07-11] MEDS: ASPIRIN EC 81 MG TABLET PO SCH (21:21)
[2017-07-11] MEDS: OMEGA 3 ACID ETHYL ESTERS 1 GM CAPSULE PO SCH (21:21)
[2017-07-11] MEDS: PANTOPRAZOLE 40 MG TABLET PO SCH (21:21)
[2017-07-11] MEDS: POLYETHYLENE GLYCOL POWDER 17 GM PACK PO SCH (21:22)
[2017-07-11] MEDS: INSULIN GLARGINE 100 UNIT/ML SUBCUT SCH (22:00)
[2017-07-12 07:04] LABS: Basophils % 0.7 % (0.0-0.8); Eosinophils # 0.2 10*3/uL (0.0-0.87); Eosinophils % 3.8 % (0.00-10.9); Hematocrit 26.2 VOL% (42.0-52.0); Hemoglobin 8.9 GM/DL (14.0-18.0); Immature Granulocytes % 0.5 %; Immature Granulocytes Absolute 0.03 #; Lymphocytes # 1.2 10*3/uL (1.4-4.0); Lymphocytes % 22.4 % (21.2-54.2); Mean Corpuscular Hemoglobin 29 PG (27-34); Mean Corpuscular Volume 84.8 FL (87-102); Mean Platelet Volume 11.1 FL (9.6-12.0); Monocytes # 0.8 10*3/uL (0.11-0.8); Monocytes % 13.8 % (1.7-12.7); Neutrophils # 3.2 10*3/uL (1.4-7.4); Neutrophils % 58.8 % (38.7-73.9); Platelet Count 148 T/CUMM (130-400); Red Blood Count 3.09 MC/CUMM (3.8-5.5); Red Cell Distribution Width 15.1 % (9.3-17.3); White Blood Count 5.5 T/CUMM (4-12)
[2017-07-12 07:36] LABS: Calcium 8.8 MG/DL (8.5-10.1); Osmolality,Calculated 290.5 MOS/KG (273-304); Potassium 3.9 MMOL/L (3.5-5.1)
[2017-07-12 07:37] LABS: Calcium 8.8 MG/DL (8.5-10.1); Osmolality,Calculated 288.7 MOS/KG (273-304)
[2017-07-12] MEDS: ROSUVASTATIN 20 MG TABLET PO SCH (08:08)
[2017-07-12] MEDS: hydrALAZINE 25 MG TABLET PO SCH ×3 (08:08→21:18)
[2017-07-12] MEDS: LEVOTHYROXINE 100 MCG TABLET PO SCH (08:08)
[2017-07-12] MEDS: ASPIRIN EC 81 MG TABLET PO SCH (08:09)
[2017-07-12] MEDS: AMIODARONE 200 MG TABLET PO SCH ×2 (08:09→21:19)
[2017-07-12] MEDS: INSULIN LISPRO 100 UNIT/ML SUBCUT SCH ×4 (08:09→21:19)
[2017-07-12] MEDS: APIXABAN 2.5 MG TABLET PO SCH ×2 (08:09→21:18)
[2017-07-12] MEDS: PANTOPRAZOLE 40 MG TABLET PO SCH (08:09)
[2017-07-12] MEDS: OMEGA 3 ACID ETHYL ESTERS 1 GM CAPSULE PO SCH (08:09)
[2017-07-12] MEDS: CARVEDILOL 12.5 MG TABLET PO SCH ×2 (08:09→21:19)
[2017-07-12] MEDS: DOCUSATE SODIUM 100 MG CAPSULE PO SCH ×2 (08:10→21:18)
[2017-07-12] MEDS: FUROSEMIDE 40 MG/4 ML VIAL IV SCH (08:10)
[2017-07-12] MEDS: GLIMEPIRIDE 4 MG TABLET PO SCH (08:39)
[2017-07-12 11:05] LABS: % Iron Saturation 12.7 % (18-50)
[2017-07-12] MEDS: POLYETHYLENE GLYCOL POWDER 17 GM PACK PO SCH (21:19)
[2017-07-12] MEDS: INSULIN GLARGINE 100 UNIT/ML SUBCUT SCH (21:19)
[2017-07-13 06:29] LABS: Calcium 8.3 MG/DL (8.5-10.1); Osmolality,Calculated 289.8 MOS/KG (273-304); Potassium 3.7 MMOL/L (3.5-5.1)
[2017-07-13] MEDS: INSULIN LISPRO 100 UNIT/ML SUBCUT SCH ×4 (08:57→21:35)
[2017-07-13] MEDS: ASPIRIN EC 81 MG TABLET PO SCH (08:58)
[2017-07-13] MEDS: PANTOPRAZOLE 40 MG TABLET PO SCH (08:58)
[2017-07-13] MEDS: CARVEDILOL 12.5 MG TABLET PO SCH ×2 (08:58→21:06)
[2017-07-13] MEDS: APIXABAN 2.5 MG TABLET PO SCH ×2 (08:58→21:06)
[2017-07-13] MEDS: OMEGA 3 ACID ETHYL ESTERS 1 GM CAPSULE PO SCH (08:58)
[2017-07-13] MEDS: LEVOTHYROXINE 112 MCG TABLET PO SCH (08:58)
[2017-07-13] MEDS: hydrALAZINE 25 MG TABLET PO SCH ×3 (08:59→21:06)
[2017-07-13] MEDS: ROSUVASTATIN 20 MG TABLET PO SCH (08:59)
[2017-07-13] MEDS: DOCUSATE SODIUM 100 MG CAPSULE PO SCH ×2 (08:59→21:06)
[2017-07-13] MEDS: GLIMEPIRIDE 4 MG TABLET PO SCH (08:59)
[2017-07-13] MEDS: amLODIPine 5 MG TABLET PO SCH (10:25)
[2017-07-13 13:05] LABS: Apearance,Urine CLEAR (Clear); Bacteria,Urine Occasional /HPF (Few); Bilirubin,Urine Negative (Negative); Blood, Urine Negative (Negative); Glucose,Urine (UA) >=500 mg/dL (Negative); Hyaline Casts,Urine 1 /LPF (0-3); Ketones,Urine Negative (Negative); Nitrite,Urine Negative (Negative); Protein,Urine 30 MG/DL; RBC,Urine <1 /HPF (0-4); Urine Color Yellow (Yellow); Urine Specific Gravity 1.009 (1.001-1.035); Urine Urobilinogen < 2.0 EU/DL (0.2-1.0); WBC,Urine <1 /HPF (0-6)
[2017-07-13] MEDS: miSOPROStol 200 MCG TABLET PO SCH ×3 (13:37→21:05)
[2017-07-13] MEDS: IRON SUCROSE 200 MG in SODIUM CHLORIDE 0.9% 100 ML IV SCH (13:37)
[2017-07-13] MEDS: ACETAMINOPHEN 325 MG TABLET PO PRN ×2 (13:48→21:06)
[2017-07-13] MEDS: INSULIN GLARGINE 100 UNIT/ML SUBCUT SCH (21:05)
[2017-07-13] MEDS: POLYETHYLENE GLYCOL POWDER 17 GM PACK PO SCH (21:35)
[2017-07-14] MEDS: LEVOTHYROXINE 112 MCG TABLET PO SCH (06:52)
[2017-07-14] MEDS: IRON SUCROSE 200 MG in SODIUM CHLORIDE 0.9% 100 ML IV SCH (08:24)
[2017-07-14] MEDS: amLODIPine 5 MG TABLET PO SCH (08:25)
[2017-07-14] MEDS: PANTOPRAZOLE 40 MG TABLET PO SCH (08:25)
[2017-07-14] MEDS: ROSUVASTATIN 20 MG TABLET PO SCH (08:25)
[2017-07-14] MEDS: miSOPROStol 200 MCG TABLET PO SCH ×2 (08:25→13:05)
[2017-07-14] MEDS: DOCUSATE SODIUM 100 MG CAPSULE PO SCH (08:25)
[2017-07-14] MEDS: OMEGA 3 ACID ETHYL ESTERS 1 GM CAPSULE PO SCH (08:26)
[2017-07-14] MEDS: INSULIN LISPRO 100 UNIT/ML SUBCUT SCH ×2 (08:26→13:05)
[2017-07-14] MEDS: APIXABAN 2.5 MG TABLET PO SCH (08:26)
[2017-07-14] MEDS: GLIMEPIRIDE 4 MG TABLET PO SCH (08:26)
[2017-07-14] MEDS: ASPIRIN EC 81 MG TABLET PO SCH (08:26)
[2017-07-14] MEDS: CARVEDILOL 12.5 MG TABLET PO SCH (08:26)
[2017-07-14] MEDS: hydrALAZINE 25 MG TABLET PO SCH (08:26)
[2017-07-14 09:46] LABS: Calcium 8.3 MG/DL (8.5-10.1); Magnesium 1.7 MG/DL (1.8-2.4); Osmolality,Calculated 283.1 MOS/KG (273-304); Potassium 3.7 MMOL/L (3.5-5.1)
[2017-07-14 11:56] VITALS: BP 157/76
== END 2017-07-14 15:30 | disposition home or self-care (01) | DRG 77 ==
LOC: N.ED 08:09 → N.CC 09:29 → SUATTDRO 09:29 → N.CC 17:03 → N.5E 07-11 16:15
PROVIDERS: ADMIT Internal Medicine; ATTEND Internal Medicine

== ENCOUNTER 2019-01-13 16:33 | Inpatient (IN) ==
[2019-01-13 18:43] LABS: Basophils % 0.2 % (0.0-0.8); Eosinophils # 0.1 10*3/uL (0.0-0.87); Hematocrit 29.2 VOL% (42.0-52.0); Hemoglobin 8.8 GM/DL (14.0-18.0); Immature Granulocytes % 1.1 %; Immature Granulocytes Absolute 0.14 #; Lymphocytes # 0.7 10*3/uL (1.4-4.0); Lymphocytes % 5.6 % (21.2-54.2); Mean Corpuscular HGB Conc 30.1 GM/DL (32-36); Mean Corpuscular Hemoglobin 26 PG (27-34); Mean Corpuscular Volume 85.1 FL (87-102); Mean Platelet Volume 12.2 FL (9.6-12.0); Monocytes # 1.4 10*3/uL (0.11-0.8); Monocytes % 10.9 % (1.7-12.7); Neutrophils # 10.6 10*3/uL (1.4-7.4); Neutrophils % 81.2 % (38.7-73.9); Red Blood Count 3.43 MC/CUMM (3.8-5.5); Red Cell Distribution Width 18.7 % (9.3-17.3); White Blood Count 13.1 T/CUMM (4-12)
[2019-01-13 18:46] LABS: Platelet Count 89 T/CUMM (130-400)
[2019-01-13 18:53] LABS: Apearance,Urine CLEAR (Clear); Bacteria,Urine Occasional /HPF (Few); Bilirubin,Urine Negative (Negative); Blood, Urine Negative (Negative); Glucose,Urine (UA) Negative (Negative); Ketones,Urine Negative (Negative); Nitrite,Urine Negative (Negative); Protein,Urine Negative; RBC,Urine 1 /HPF (0-4); Sperm,Urine Many /HPF (Negative); Urine Color Yellow (Yellow); Urine Specific Gravity 1.008 (1.001-1.035); Urine Urobilinogen < 2.0 EU/DL (0.2-1.0); WBC,Urine 1 /HPF (0-6)
[2019-01-13 19:04] LABS: Albumin 3.2 G/DL (3.4-5.0); Bilirubin,Total 0.4 MG/DL (0.2-1.0); Calcium 8.5 MG/DL (8.5-10.1); Osmolality,Calculated 300.7 MOS/KG (273-304); Potassium 2.9 MMOL/L (3.5-5.1); Total Protein 7.7 G/DL (6.4-8.3)
[2019-01-13] MEDS ORDERED: FUROSEMIDE 40 MG/4 ML VIAL IV STA (19:05)
[2019-01-13 19:20] LABS: INR 1.1; PT Patient Result 11.5 SECS
[2019-01-13] MEDS ORDERED: POTASSIUM CHLORIDE 20 MEQ TABLET PO STA (19:25)
[2019-01-13 19:29] LABS: CKMB % 1.6 %; Thyroid Stimulating Hormone 0.25 uIU/ml (0.358-3.74); Troponin I 0.045 NG/ML (0.00-0.045)
[2019-01-13 19:36] LABS: Prolactin 5.6 NG/ML
[2019-01-13 19:40] LABS: Hypochromasia 1+; Platelet Estimate Decreased; Polychromasia Few
[2019-01-13] MEDS ORDERED: ACETAMINOPHEN 325 MG TABLET PO PRN (21:07)
[2019-01-13] MEDS ORDERED: MORPHINE 4 MG/1 ML VIAL IV PRN (21:07)
[2019-01-13] MEDS ORDERED: diphenhydrAMINE CAP 25 MG CAPSULE PO PRN (21:07)
[2019-01-13] MEDS ORDERED: POTASSIUM CHLORIDE 20 MEQ TABLET PO PRN (21:07)
[2019-01-13] MEDS ORDERED: GLUCAGON 1 MG VIAL IM PRN (21:07)
[2019-01-13] MEDS ORDERED: BISACODYL 5 MG TABLET PO PRN (21:07)
[2019-01-13] MEDS ORDERED: NICOTINE 21 MG/24 HR PATCH TRANSDERM PRN (21:07)
[2019-01-13] MEDS ORDERED: DEXTROSE 50% 25 GM/50 ML VIAL IV PRN (21:07)
[2019-01-13] MEDS ORDERED: ONDANSETRON 4 MG/2 ML VIAL IV PRN (21:07)
[2019-01-13 21:46] LABS: Risk Ratio 3.21; VLDL CHOLESTEROL 48.4 MG/DL
[2019-01-13 21:53] LABS: Folate 13.2 NG/ML (5.4-24.0); Vitamin B12 652 PG/ML (211-911)
[2019-01-13 22:22] LABS: Basophils % 0.1 % (0.0-0.8); Eosinophils # 0.2 10*3/uL (0.0-0.87); Eosinophils % 1.2 % (0.00-10.9); Hematocrit 29.9 VOL% (42.0-52.0); Hemoglobin 9.2 GM/DL (14.0-18.0); Immature Granulocytes % 1.2 %; Immature Granulocytes Absolute 0.17 #; Lymphocytes # 1.3 10*3/uL (1.4-4.0); Lymphocytes % 9.4 % (21.2-54.2); Mean Corpuscular HGB Conc 30.8 GM/DL (32-36); Mean Corpuscular Hemoglobin 26 PG (27-34); Mean Platelet Volume 12.5 FL (9.6-12.0); Monocytes # 1.5 10*3/uL (0.11-0.8); NRBC # 0.02 10*3/uL; Neutrophils # 10.8 10*3/uL (1.4-7.4); Neutrophils % 77.1 % (38.7-73.9); Platelet Count 83 T/CUMM (130-400); Red Blood Count 3.56 MC/CUMM (3.8-5.5); Red Cell Distribution Width 18.8 % (9.3-17.3); White Blood Count 14.1 T/CUMM (4-12)
[2019-01-13 23:22] LABS: Sedimentation Rate-Westergren 103 MM/HR (0-20)
[2019-01-13 23:23] LABS: INR 1.1; PT Patient Result 11.6 SECS; Partial Thromboplastin Time 30.7 SECS (0-40)
[2019-01-14] MEDS: CARVEDILOL 12.5 MG TABLET PO SCH ×3 (01:20→21:04)
[2019-01-14] MEDS: APIXABAN 2.5 MG TABLET PO SCH ×3 (01:21→21:04)
[2019-01-14 05:49] LABS: Basophils % 0.1 % (0.0-0.8); Eosinophils # 0.3 10*3/uL (0.0-0.87); Eosinophils % 2.4 % (0.00-10.9); Hematocrit 27.1 VOL% (42.0-52.0); Hemoglobin 8.4 GM/DL (14.0-18.0); Immature Granulocytes % 0.7 %; Immature Granulocytes Absolute 0.08 #; Lymphocytes # 1.5 10*3/uL (1.4-4.0); Lymphocytes % 13.8 % (21.2-54.2); Mean Corpuscular Hemoglobin 26 PG (27-34); Mean Corpuscular Volume 83.1 FL (87-102); Mean Platelet Volume 13.3 FL (9.6-12.0); Monocytes # 1.3 10*3/uL (0.11-0.8); Monocytes % 11.8 % (1.7-12.7); Neutrophils % 71.2 % (38.7-73.9); Red Blood Count 3.26 MC/CUMM (3.8-5.5); Red Cell Distribution Width 18.7 % (9.3-17.3); White Blood Count 11.2 T/CUMM (4-12)
[2019-01-14 05:52] LABS: Platelet Count 87 T/CUMM (130-400)
[2019-01-14 06:04] LABS: Albumin 2.7 G/DL (3.4-5.0); Calcium 8.4 MG/DL (8.5-10.1); Total Protein 6.8 G/DL (6.4-8.3)
[2019-01-14 06:18] LABS: Platelet Estimate Decreased
[2019-01-14 06:19] LABS: Hypochromasia Slight
[2019-01-14 06:49] LABS: Potassium 2.2 MMOL/L (3.5-5.1)
[2019-01-14 08:06] LABS: Hemoglobin A1 (Alkaline) 97.8 % (96.5-98.5); Hemoglobin A2 (Alkaline) 2.2 % (1.5-3.5)
[2019-01-14] MEDS ORDERED: POTASSIUM CHLORIDE 20 MEQ TABLET PO ONE ×2 (08:32→11:43)
[2019-01-14] MEDS: PANTOPRAZOLE 40 MG TABLET PO SCH (09:58)
[2019-01-14] MEDS ORDERED: POLYETHYLENE GLYCOL POWDER 17 GM PACK PO PRN (10:31)
[2019-01-14] MEDS: TAMSULOSIN 0.4 MG CAPSULE PO SCH (14:15)
[2019-01-14] MEDS ORDERED: ASPIRIN EC 81 MG TABLET PO SCH (21:00)
[2019-01-14] MEDS ORDERED: PANTOPRAZOLE 40 MG TABLET PO SCH (21:00)
[2019-01-14] MEDS: NYSTATIN/TRIAMCINOLONE CREAM 15 GM TUBE TOP SCH (21:02)
[2019-01-14] MEDS: KETOCONAZOLE 2% CREAM 30 GM TUBE TOP SCH (21:03)
[2019-01-14] MEDS: PREGABALIN 75 MG CAPSULE PO SCH (21:03)
[2019-01-14] MEDS: OMEGA 3 ACID ETHYL ESTERS 1 GM CAPSULE PO SCH (21:04)
[2019-01-14] MEDS: MAGNESIUM OXIDE 400 MG TABLET PO SCH (21:04)
[2019-01-14] MEDS: POTASSIUM CHLORIDE 20 MEQ TABLET PO SCH (21:04)
[2019-01-15 05:38] LABS: Basophils % 0.2 % (0.0-0.8); Eosinophils # 0.3 10*3/uL (0.0-0.87); Eosinophils % 4.7 % (0.00-10.9); Hemoglobin 8.2 GM/DL (14.0-18.0); Immature Granulocytes % 0.5 %; Immature Granulocytes Absolute 0.03 #; Lymphocytes # 1.1 10*3/uL (1.4-4.0); Lymphocytes % 19.5 % (21.2-54.2); Mean Corpuscular HGB Conc 30.4 GM/DL (32-36); Mean Corpuscular Hemoglobin 26 PG (27-34); Mean Platelet Volume 12.8 FL (9.6-12.0); Monocytes # 0.8 10*3/uL (0.11-0.8); Monocytes % 13.4 % (1.7-12.7); Neutrophils # 3.5 10*3/uL (1.4-7.4); Neutrophils % 61.7 % (38.7-73.9); Red Blood Count 3.14 MC/CUMM (3.8-5.5); Red Cell Distribution Width 18.3 % (9.3-17.3); White Blood Count 5.7 T/CUMM (4-12)
[2019-01-15 05:40] LABS: Platelet Count 68 T/CUMM (130-400)
[2019-01-15 05:52] LABS: Calcium 8.3 MG/DL (8.5-10.1); Osmolality,Calculated 309.8 MOS/KG (273-304); Potassium 2.9 MMOL/L (3.5-5.1)
[2019-01-15 06:18] LABS: Hypochromasia 1+; Microcytosis 1+; Platelet Estimate Decreased
[2019-01-15] MEDS ORDERED: LEVOTHYROXINE 150 MCG TABLET PO SCH (06:30)
[2019-01-15] MEDS: KETOCONAZOLE 2% CREAM 30 GM TUBE TOP SCH (09:00)
[2019-01-15] MEDS ORDERED: FOLIC ACID PO SCH (09:00)
[2019-01-15] MEDS ORDERED: MULTIVITAMIN (PRENATAL) TABLET PO SCH (09:00)
[2019-01-15] MEDS ORDERED: sitaGLIPtin 25 MG TABLET PO SCH (09:00)
[2019-01-15] MEDS ORDERED: ROSUVASTATIN 20 MG TABLET PO SCH (09:00)
[2019-01-15] MEDS ORDERED: MULTIVITAMIN (OCUVITE) TABLET PO SCH (09:00)
[2019-01-15] MEDS ORDERED: MV IRON MIN PO SCH (09:00)
[2019-01-15] MEDS: NYSTATIN/TRIAMCINOLONE CREAM 15 GM TUBE TOP SCH (09:00)
[2019-01-15] MEDS: PREGABALIN 75 MG CAPSULE PO SCH (09:34)
[2019-01-15] MEDS: POTASSIUM CHLORIDE 20 MEQ TABLET PO SCH ×3 (09:35→11:47)
[2019-01-15] MEDS: OMEGA 3 ACID ETHYL ESTERS 1 GM CAPSULE PO SCH (09:35)
[2019-01-15] MEDS: APIXABAN 2.5 MG TABLET PO SCH (09:36)
[2019-01-15] MEDS: TAMSULOSIN 0.4 MG CAPSULE PO SCH (09:36)
[2019-01-15] MEDS: CARVEDILOL 12.5 MG TABLET PO SCH (09:36)
[2019-01-15] MEDS: MAGNESIUM OXIDE 400 MG TABLET PO SCH (09:36)
[2019-01-15] MEDS: PANTOPRAZOLE 40 MG TABLET PO SCH (09:37)
[2019-01-15 12:10] VITALS: BP 137/68
[2019-01-15] MEDS ORDERED: POTASSIUM CHLORIDE 20 MEQ TABLET PO ONE (12:47)
[2019-02-12] MEDS ORDERED: DARBEPOETIN ALFA 100 MCG/ML VIAL SUBCUT SCH (11:00)
== END 2019-01-15 14:42 | disposition home or self-care (01) | DRG 641 ==
LOC: N.ED 16:33 → N.EDINP 21:07 → SUATTDRO 21:07 → N.5E 23:57
PROVIDERS: ADMIT Internal Medicine; ATTEND Internal Medicine

== ENCOUNTER 2019-03-17 13:19 | Inpatient (IN) ==
[2019-03-17 14:03] LABS: Basophils % 0.3 % (0.0-0.8); Eosinophils # 0.1 10*3/uL (0.0-0.87); Eosinophils % 1.1 % (0.00-10.9); Hematocrit 24.6 VOL% (42.0-52.0); Immature Granulocytes % 1.9 %; Immature Granulocytes Absolute 0.17 #; Lymphocytes # 1.1 10*3/uL (1.4-4.0); Lymphocytes % 12.9 % (21.2-54.2); Mean Corpuscular HGB Conc 32.5 GM/DL (32-36); Mean Corpuscular Volume 89.1 FL (87-102); Mean Platelet Volume 13.3 FL (9.6-12.0); Monocytes % 12.3 % (1.7-12.7); Neutrophils % 71.5 % (38.7-73.9); Platelet Count 104 T/CUMM (130-400); Red Blood Count 2.76 MC/CUMM (3.8-5.5); Red Cell Distribution Width 20.1 % (9.3-17.3); White Blood Count 8.9 T/CUMM (4-12)
[2019-03-17 14:18] LABS: PT Patient Result 10.7 SECS; Partial Thromboplastin Time 25.5 SECS (0-40)
[2019-03-17 14:32] LABS: Albumin 3.4 G/DL (3.4-5.0); Bilirubin,Total 0.4 MG/DL (0.2-1.0); Calcium 8.9 MG/DL (8.5-10.1); Osmolality,Calculated 329.1 MOS/KG (273-304); Total Protein 6.6 G/DL (6.4-8.3)
[2019-03-17] MEDS ORDERED: diphenhydrAMINE CAP 25 MG CAPSULE PO PRN (14:58)
[2019-03-17] MEDS ORDERED: ZALEPLON 5 MG CAPSULE PO PRN (14:58)
[2019-03-17] MEDS ORDERED: BISACODYL 5 MG TABLET PO PRN (14:58)
[2019-03-17] MEDS ORDERED: MORPHINE 4 MG/1 ML VIAL IV PRN ×2 (14:58)
[2019-03-17] MEDS ORDERED: ACETAMINOPHEN 325 MG TABLET PO PRN ×2 (14:58)
[2019-03-17] MEDS ORDERED: MAGNESIUM SULF RIDER 4 GM in PREMIX 1 EACH IV PRN (14:58)
[2019-03-17] MEDS ORDERED: MAGNESIUM SULF RIDER 2 GM in PREMIX 1 EACH IV PRN (14:58)
[2019-03-17] MEDS ORDERED: DEXTROSE 10% 250 ML BAG IV PRN (14:58)
[2019-03-17] MEDS ORDERED: GLUCAGON 1 MG VIAL IM PRN (14:58)
[2019-03-17] MEDS ORDERED: guaiFENesin/DM ER 600-30 MG TABLET PO PRN (14:58)
[2019-03-17] MEDS ORDERED: DOCUSATE SODIUM 100 MG CAPSULE PO PRN (14:58)
[2019-03-17] MEDS ORDERED: SODIUM CHLORIDE 0.9% 1,000 ML IV PRN (15:02)
[2019-03-17] MEDS ORDERED: NITROGLYCERIN SL 0.4 MG TABLET SL PRN (15:05)
[2019-03-17] MEDS ORDERED: POLYETHYLENE GLYCOL POWDER 17 GM PACK PO PRN (15:06)
[2019-03-17] MEDS ORDERED: DARBEPOETIN ALFA 100 MCG/ML VIAL SUBCUT SCH (15:30)
[2019-03-17] MEDS ORDERED: PANTOPRAZOLE 40 MG TABLET PO SCH (15:30)
[2019-03-17] MEDS: SODIUM CHLORIDE 0.45% 1,000 ML IV SCH (19:14)
[2019-03-17 19:41] LABS: CKMB % 4.2 %
[2019-03-17 19:43] LABS: Troponin I 0.141 NG/ML (0.00-0.045)
[2019-03-17 20:20] LABS: Apearance,Urine CLEAR (Clear); Bacteria,Urine Occasional /HPF (Few); Bilirubin,Urine Negative (Negative); Blood, Urine Negative (Negative); Glucose,Urine (UA) 150 mg/dL (Negative); Ketones,Urine Negative (Negative); Mucus,Urine Occasional /LPF (Occasional); Nitrite,Urine Negative (Negative); Protein,Urine Negative; RBC,Urine 1 /HPF (0-4); Urine Color Straw (Yellow); Urine Specific Gravity 1.009 (1.001-1.035); Urine Urobilinogen < 2.0 EU/DL (0.2-1.0)
[2019-03-17] MEDS ORDERED: PREGABALIN 200 MG PO SCH (21:00)
[2019-03-17] MEDS: INSULIN LISPRO 100 UNIT/ML SUBCUT SCH ×3 (21:04→22:24)
[2019-03-17] MEDS: MAGNESIUM CHLORIDE 64 MG TABLET PO SCH (22:24)
[2019-03-17] MEDS: ASPIRIN EC 81 MG TABLET PO SCH (22:24)
[2019-03-17] MEDS: CARVEDILOL 12.5 MG TABLET PO SCH (22:25)
[2019-03-17] MEDS: PREGABALIN 100 MG CAPSULE PO SCH (22:25)
[2019-03-17] MEDS: POTASSIUM CHLORIDE 20 MEQ TABLET PO SCH (22:25)
[2019-03-17] MEDS: OMEGA 3 ACID ETHYL ESTERS 1 GM CAPSULE PO SCH (22:25)
[2019-03-17] MEDS: NYSTATIN/TRIAMCINOLONE CREAM 15 GM TUBE TOP SCH (22:26)
[2019-03-17] MEDS: KETOCONAZOLE 2% CREAM 30 GM TUBE TOP SCH (22:26)
[2019-03-18 04:59] LABS: Basophils % 0.5 % (0.0-0.8); Eosinophils # 0.1 10*3/uL (0.0-0.87); Eosinophils % 1.6 % (0.00-10.9); Hematocrit 27.7 VOL% (42.0-52.0); Hemoglobin 9.1 GM/DL (14.0-18.0); Immature Granulocytes % 2.1 %; Immature Granulocytes Absolute 0.16 #; Lymphocytes # 1.2 10*3/uL (1.4-4.0); Lymphocytes % 16.2 % (21.2-54.2); Mean Corpuscular HGB Conc 32.9 GM/DL (32-36); Mean Corpuscular Volume 90.2 FL (87-102); Monocytes % 16.1 % (1.7-12.7); NRBC # 0.27 10*3/uL; Neutrophils % 63.5 % (38.7-73.9); Platelet Count 82 T/CUMM (130-400); Red Blood Count 3.07 MC/CUMM (3.8-5.5); Red Cell Distribution Width 18.4 % (9.3-17.3); White Blood Count 7.5 T/CUMM (4-12)
[2019-03-18 05:28] LABS: Calcium 8.7 MG/DL (8.5-10.1); Osmolality,Calculated 329.4 MOS/KG (273-304)
[2019-03-18 05:32] LABS: Hypochromasia 1+; Lymphocytes 15 % (20-55); Microcytosis Slight; Nucleated Red Blood Cells 2 (0-5); Platelet Estimate Decreased; Segmented Neutrophils 76 % (50-85); Total Cells Counted 100
[2019-03-18 05:35] LABS: Risk Ratio 3.81; VLDL CHOLESTEROL 109.8 MG/DL
[2019-03-18] MEDS: LEVOTHYROXINE 88 MCG TABLET PO SCH (05:59)
[2019-03-18] MEDS: POTASSIUM CHLORIDE 20 MEQ TABLET PO PRN ×3 (06:00→19:09)
[2019-03-18] MEDS ORDERED: SITAGLIPTIN 50 MG PO SCH (09:00)
[2019-03-18] MEDS ORDERED: SODIUM CHLORIDE 0.9% 1,000 ML IV PRN (09:18)
[2019-03-18] MEDS: PREGABALIN 100 MG CAPSULE PO SCH ×3 (09:32→21:04)
[2019-03-18] MEDS: MULTIVITAMIN (CENTRUM) TABLET PO SCH (09:32)
[2019-03-18] MEDS: POTASSIUM CHLORIDE 20 MEQ TABLET PO SCH ×3 (09:32→21:05)
[2019-03-18] MEDS: CARVEDILOL 12.5 MG TABLET PO SCH ×2 (09:32→16:37)
[2019-03-18] MEDS: INSULIN GLARGINE 100 UNIT/ML SUBCUT SCH ×2 (09:32→21:03)
[2019-03-18] MEDS: ROSUVASTATIN 20 MG TABLET PO SCH (09:32)
[2019-03-18] MEDS: MAGNESIUM CHLORIDE 64 MG TABLET PO SCH ×2 (09:32→21:05)
[2019-03-18] MEDS: PANTOPRAZOLE 40 MG TABLET PO SCH (09:32)
[2019-03-18] MEDS: OMEGA 3 ACID ETHYL ESTERS 1 GM CAPSULE PO SCH ×2 (09:32→21:05)
[2019-03-18] MEDS: INSULIN LISPRO 100 UNIT/ML SUBCUT SCH ×7 (09:34→21:03)
[2019-03-18] MEDS: MULTIVITAMIN (PRENATAL) TABLET PO SCH (10:40)
[2019-03-18] MEDS: sitaGLIPtin 25 MG TABLET PO SCH (10:40)
[2019-03-18] MEDS: NYSTATIN/TRIAMCINOLONE CREAM 15 GM TUBE TOP SCH ×2 (10:41→21:05)
[2019-03-18] MEDS: TAMSULOSIN 0.4 MG CAPSULE PO SCH (10:41)
[2019-03-18] MEDS: KETOCONAZOLE 2% CREAM 30 GM TUBE TOP SCH ×2 (10:41→21:06)
[2019-03-18] MEDS: SODIUM CHLORIDE 0.45% 1,000 ML IV SCH (12:08)
[2019-03-18 14:49] LABS: Hematocrit 30.2 VOL% (42.0-52.0); Hemoglobin 9.7 GM/DL (14.0-18.0)
[2019-03-18] MEDS: RANOLAZINE 500 MG TABLET PO SCH ×2 (16:37→21:05)
[2019-03-18] MEDS: ASPIRIN EC 81 MG TABLET PO SCH (21:05)
[2019-03-19 02:28] LABS: Basophils % 0.5 % (0.0-0.8); Eosinophils # 0.1 10*3/uL (0.0-0.87); Hemoglobin 9.5 GM/DL (14.0-18.0); Immature Granulocytes Absolute 0.13 #; Lymphocytes # 1.1 10*3/uL (1.4-4.0); Lymphocytes % 16.9 % (21.2-54.2); Mean Corpuscular HGB Conc 31.7 GM/DL (32-36); Mean Corpuscular Volume 91.5 FL (87-102); Mean Platelet Volume 13.3 FL (9.6-12.0); Monocytes % 17.6 % (1.7-12.7); NRBC # 0.26 10*3/uL; Platelet Count 73 T/CUMM (130-400); Red Blood Count 3.28 MC/CUMM (3.8-5.5); Red Cell Distribution Width 18.7 % (9.3-17.3); White Blood Count 6.6 T/CUMM (4-12)
[2019-03-19 02:44] LABS: Calcium 8.8 MG/DL (8.5-10.1); Osmolality,Calculated 322.3 MOS/KG (273-304)
[2019-03-19 03:18] LABS: Anisocytosis 1+; Eosinophils 3 % (0-10); Lymphocytes 14 % (20-55); Nucleated Red Blood Cells 5 (0-5); Segmented Neutrophils 65 % (50-85); Total Cells Counted 100
[2019-03-19 03:19] LABS: Microcytosis 1+
[2019-03-19 03:50] LABS: Polychromasia 1+
[2019-03-19 03:51] LABS: Platelet Estimate Decreased; Tear Drop Cells Few
[2019-03-19] MEDS: LEVOTHYROXINE 88 MCG TABLET PO SCH (06:18)
[2019-03-19] MEDS: POTASSIUM CHLORIDE 20 MEQ TABLET PO PRN ×2 (06:19→06:38)
[2019-03-19] MEDS: INSULIN LISPRO 100 UNIT/ML SUBCUT SCH ×7 (09:12→21:25)
[2019-03-19] MEDS: INSULIN GLARGINE 100 UNIT/ML SUBCUT SCH ×2 (09:12→21:27)
[2019-03-19] MEDS: PREGABALIN 100 MG CAPSULE PO SCH ×3 (09:13→21:22)
[2019-03-19] MEDS: CARVEDILOL 12.5 MG TABLET PO SCH ×2 (09:13→16:23)
[2019-03-19] MEDS: POTASSIUM CHLORIDE 20 MEQ TABLET PO SCH ×3 (09:14→21:24)
[2019-03-19] MEDS: RANOLAZINE 500 MG TABLET PO SCH ×2 (09:14→21:23)
[2019-03-19] MEDS: OMEGA 3 ACID ETHYL ESTERS 1 GM CAPSULE PO SCH ×2 (09:14→21:24)
[2019-03-19] MEDS: TAMSULOSIN 0.4 MG CAPSULE PO SCH (09:14)
[2019-03-19] MEDS: MULTIVITAMIN (PRENATAL) TABLET PO SCH (09:14)
[2019-03-19] MEDS: MULTIVITAMIN (CENTRUM) TABLET PO SCH (09:14)
[2019-03-19] MEDS: MAGNESIUM CHLORIDE 64 MG TABLET PO SCH ×2 (09:14→21:24)
[2019-03-19] MEDS: ROSUVASTATIN 20 MG TABLET PO SCH (09:14)
[2019-03-19] MEDS: sitaGLIPtin 25 MG TABLET PO SCH (09:14)
[2019-03-19] MEDS: PANTOPRAZOLE 40 MG TABLET PO SCH (09:14)
[2019-03-19] MEDS: KETOCONAZOLE 2% CREAM 30 GM TUBE TOP SCH ×2 (09:15→21:28)
[2019-03-19] MEDS: NYSTATIN/TRIAMCINOLONE CREAM 15 GM TUBE TOP SCH ×2 (09:15→21:29)
[2019-03-19] MEDS: SODIUM CHLORIDE 0.45% 1,000 ML IV SCH (09:16)
[2019-03-19] MEDS: ASPIRIN EC 81 MG TABLET PO SCH (21:22)
[2019-03-20 04:59] LABS: Basophils % 0.4 % (0.0-0.8); Eosinophils # 0.2 10*3/uL (0.0-0.87); Eosinophils % 2.3 % (0.00-10.9); Hematocrit 31.8 VOL% (42.0-52.0); Hemoglobin 10.1 GM/DL (14.0-18.0); Immature Granulocytes % 2.4 %; Immature Granulocytes Absolute 0.17 #; Lymphocytes # 1.4 10*3/uL (1.4-4.0); Lymphocytes % 19.2 % (21.2-54.2); Mean Corpuscular HGB Conc 31.8 GM/DL (32-36); Mean Corpuscular Volume 93.3 FL (87-102); Mean Platelet Volume 12.7 FL (9.6-12.0); Monocytes % 12.6 % (1.7-12.7); NRBC # 0.14 10*3/uL; Neutrophils % 63.1 % (38.7-73.9); Platelet Count 76 T/CUMM (130-400); Red Blood Count 3.41 MC/CUMM (3.8-5.5); Red Cell Distribution Width 20.4 % (9.3-17.3)
[2019-03-20 05:26] LABS: Calcium 9.3 MG/DL (8.5-10.1)
[2019-03-20 05:27] LABS: Anisocytosis 1+
[2019-03-20 05:28] LABS: Platelet Estimate Decreased
[2019-03-20] MEDS: SODIUM CHLORIDE 0.45% 1,000 ML IV SCH ×2 (05:53→23:25)
[2019-03-20] MEDS: LEVOTHYROXINE 88 MCG TABLET PO SCH (06:01)
[2019-03-20] MEDS: INSULIN GLARGINE 100 UNIT/ML SUBCUT SCH ×2 (08:02→22:16)
[2019-03-20] MEDS: INSULIN LISPRO 100 UNIT/ML SUBCUT SCH ×7 (08:02→22:16)
[2019-03-20] MEDS: OMEGA 3 ACID ETHYL ESTERS 1 GM CAPSULE PO SCH ×2 (08:03→22:16)
[2019-03-20] MEDS: PREGABALIN 100 MG CAPSULE PO SCH ×3 (08:03→22:17)
[2019-03-20] MEDS: MULTIVITAMIN (PRENATAL) TABLET PO SCH (08:03)
[2019-03-20] MEDS: CARVEDILOL 12.5 MG TABLET PO SCH ×2 (08:03→16:39)
[2019-03-20] MEDS: POTASSIUM CHLORIDE 20 MEQ TABLET PO SCH ×3 (08:03→22:16)
[2019-03-20] MEDS: PANTOPRAZOLE 40 MG TABLET PO SCH (08:03)
[2019-03-20] MEDS: RANOLAZINE 500 MG TABLET PO SCH ×2 (08:03→22:16)
[2019-03-20] MEDS: TAMSULOSIN 0.4 MG CAPSULE PO SCH (08:03)
[2019-03-20] MEDS: MULTIVITAMIN (CENTRUM) TABLET PO SCH (08:03)
[2019-03-20] MEDS: ROSUVASTATIN 20 MG TABLET PO SCH (08:03)
[2019-03-20] MEDS: KETOCONAZOLE 2% CREAM 30 GM TUBE TOP SCH ×2 (08:07→22:17)
[2019-03-20] MEDS: NYSTATIN/TRIAMCINOLONE CREAM 15 GM TUBE TOP SCH ×2 (08:07→22:16)
[2019-03-20] MEDS: sitaGLIPtin 25 MG TABLET PO SCH (08:07)
[2019-03-20] MEDS: MAGNESIUM CHLORIDE 64 MG TABLET PO SCH ×2 (08:08→22:15)
[2019-03-20] MEDS: ASPIRIN EC 81 MG TABLET PO SCH (22:17)
[2019-03-21 05:01] LABS: Basophils % 0.5 % (0.0-0.8); Eosinophils # 0.2 10*3/uL (0.0-0.87); Eosinophils % 2.6 % (0.00-10.9); Hematocrit 30.5 VOL% (42.0-52.0); Hemoglobin 9.7 GM/DL (14.0-18.0); Immature Granulocytes % 1.9 %; Immature Granulocytes Absolute 0.14 #; Lymphocytes # 1.4 10*3/uL (1.4-4.0); Lymphocytes % 18.6 % (21.2-54.2); Mean Corpuscular HGB Conc 31.8 GM/DL (32-36); Mean Corpuscular Volume 95.6 FL (87-102); Mean Platelet Volume 12.4 FL (9.6-12.0); Monocytes % 11.6 % (1.7-12.7); NRBC # 0.12 10*3/uL; Neutrophils % 64.8 % (38.7-73.9); Platelet Count 77 T/CUMM (130-400); Red Blood Count 3.19 MC/CUMM (3.8-5.5); Red Cell Distribution Width 20.8 % (9.3-17.3); White Blood Count 7.4 T/CUMM (4-12)
[2019-03-21 05:26] LABS: Anisocytosis 1+; Eosinophils 1 % (0-10); Lymphocytes 19 % (20-55); Nucleated Red Blood Cells 1 (0-5); Segmented Neutrophils 76 % (50-85); Total Cells Counted 100
[2019-03-21 05:27] LABS: Microcytosis 1+; Polychromasia Few
[2019-03-21 05:28] LABS: Platelet Estimate Decreased; Tear Drop Cells Slight
[2019-03-21 05:39] LABS: Osmolality,Calculated 302.1 MOS/KG (273-304)
[2019-03-21] MEDS: LEVOTHYROXINE 88 MCG TABLET PO SCH (05:46)
[2019-03-21] MEDS: POTASSIUM CHLORIDE 20 MEQ TABLET PO SCH ×3 (09:00→23:05)
[2019-03-21] MEDS: MULTIVITAMIN (PRENATAL) TABLET PO SCH (09:00)
[2019-03-21] MEDS: INSULIN GLARGINE 100 UNIT/ML SUBCUT SCH ×2 (09:00→23:51)
[2019-03-21] MEDS: PREGABALIN 100 MG CAPSULE PO SCH ×3 (09:00→23:03)
[2019-03-21] MEDS: KETOCONAZOLE 2% CREAM 30 GM TUBE TOP SCH ×2 (09:00→23:52)
[2019-03-21] MEDS ORDERED: PROPOFOL 200 MG/20 ML VIAL IV ONE (09:00)
[2019-03-21] MEDS ORDERED: LIDOCAINE 2% 5 ML VIAL ONE (09:00)
[2019-03-21] MEDS: INSULIN LISPRO 100 UNIT/ML SUBCUT SCH ×7 (09:48→23:05)
[2019-03-21] MEDS: NYSTATIN/TRIAMCINOLONE CREAM 15 GM TUBE TOP SCH ×2 (09:50→23:04)
[2019-03-21] MEDS: SODIUM CHLORIDE 0.45% 1,000 ML IV SCH (15:30)
[2019-03-21] MEDS: TAMSULOSIN 0.4 MG CAPSULE PO SCH (15:47)
[2019-03-21] MEDS: sitaGLIPtin 25 MG TABLET PO SCH (15:47)
[2019-03-21] MEDS: OMEGA 3 ACID ETHYL ESTERS 1 GM CAPSULE PO SCH ×2 (15:48→23:04)
[2019-03-21] MEDS: MULTIVITAMIN (CENTRUM) TABLET PO SCH (15:49)
[2019-03-21] MEDS: MAGNESIUM CHLORIDE 64 MG TABLET PO SCH ×2 (15:49→23:04)
[2019-03-21] MEDS: ROSUVASTATIN 20 MG TABLET PO SCH (15:49)
[2019-03-21] MEDS: CARVEDILOL 12.5 MG TABLET PO SCH ×2 (15:49→16:58)
[2019-03-21] MEDS: PANTOPRAZOLE 40 MG TABLET PO SCH (15:49)
[2019-03-21] MEDS: RANOLAZINE 500 MG TABLET PO SCH ×2 (15:49→23:03)
[2019-03-21] MEDS ORDERED: POLYETHYLENE GLYCOL POWDER 255 GM BOTTLE PO ONE (18:00)
[2019-03-21] MEDS: ONDANSETRON 4 MG/2 ML VIAL IV PRN (20:32)
[2019-03-21] MEDS: ASPIRIN EC 81 MG TABLET PO SCH (23:05)
[2019-03-22] MEDS ORDERED: MAGNESIUM CITRATE 300 ML BOTTLE PO ONE (05:00)
[2019-03-22] MEDS: ONDANSETRON 4 MG/2 ML VIAL IV PRN (05:05)
[2019-03-22] MEDS: LEVOTHYROXINE 88 MCG TABLET PO SCH (05:06)
[2019-03-22 07:21] LABS: Basophils % 0.5 % (0.0-0.8); Eosinophils # 0.2 10*3/uL (0.0-0.87); Eosinophils % 2.5 % (0.00-10.9); Hematocrit 36.3 VOL% (42.0-52.0); Immature Granulocytes % 1.7 %; Immature Granulocytes Absolute 0.13 #; Lymphocytes % 12.9 % (21.2-54.2); Mean Corpuscular HGB Conc 30.3 GM/DL (32-36); Mean Corpuscular Volume 97.8 FL (87-102); Mean Platelet Volume 11.7 FL (9.6-12.0); Monocytes % 9.3 % (1.7-12.7); NRBC # 0.04 10*3/uL; Neutrophils % 73.1 % (38.7-73.9); Platelet Count 71 T/CUMM (130-400); Red Blood Count 3.71 MC/CUMM (3.8-5.5); Red Cell Distribution Width 21.3 % (9.3-17.3); White Blood Count 7.7 T/CUMM (4-12)
[2019-03-22] MEDS: SODIUM CHLORIDE 0.45% 1,000 ML IV SCH (07:24)
[2019-03-22 07:38] LABS: Hypochromasia 1+; Macrocytosis Slight; Platelet Estimate Decreased; Polychromasia Slight
[2019-03-22] MEDS: INSULIN LISPRO 100 UNIT/ML SUBCUT SCH ×6 (07:54→15:29)
[2019-03-22 07:58] LABS: Calcium 9.1 MG/DL (8.5-10.1); Osmolality,Calculated 293.3 MOS/KG (273-304)
[2019-03-22] MEDS: INSULIN GLARGINE 100 UNIT/ML SUBCUT SCH (09:20)
[2019-03-22] MEDS: CARVEDILOL 12.5 MG TABLET PO SCH (09:37)
[2019-03-22] MEDS ORDERED: LIDOCAINE 2% 5 ML VIAL ONE (10:00)
[2019-03-22] MEDS ORDERED: PROPOFOL 200 MG/20 ML VIAL IV ONE (10:00)
[2019-03-22] MEDS ORDERED: ETOMIDATE 20 MG/10 ML VIAL IV ONE (10:00)
[2019-03-22 15:12] VITALS: BP 130/64
[2019-03-22] MEDS: PANTOPRAZOLE 40 MG TABLET PO SCH (15:25)
[2019-03-22] MEDS: TAMSULOSIN 0.4 MG CAPSULE PO SCH (15:25)
[2019-03-22] MEDS: ROSUVASTATIN 20 MG TABLET PO SCH (15:25)
[2019-03-22] MEDS: sitaGLIPtin 25 MG TABLET PO SCH (15:25)
[2019-03-22] MEDS: MULTIVITAMIN (CENTRUM) TABLET PO SCH (15:26)
[2019-03-22] MEDS: RANOLAZINE 500 MG TABLET PO SCH (15:26)
[2019-03-22] MEDS: POTASSIUM CHLORIDE 20 MEQ TABLET PO SCH ×2 (15:27)
[2019-03-22] MEDS: PREGABALIN 100 MG CAPSULE PO SCH ×2 (15:27→15:28)
[2019-03-22] MEDS: NYSTATIN/TRIAMCINOLONE CREAM 15 GM TUBE TOP SCH (15:28)
[2019-03-22] MEDS: KETOCONAZOLE 2% CREAM 30 GM TUBE TOP SCH (15:28)
[2019-03-22] MEDS: MAGNESIUM CHLORIDE 64 MG TABLET PO SCH (15:28)
[2019-03-22] MEDS: OMEGA 3 ACID ETHYL ESTERS 1 GM CAPSULE PO SCH (15:28)
[2019-03-22] MEDS: MULTIVITAMIN (PRENATAL) TABLET PO SCH (15:29)
== END 2019-03-22 18:10 | disposition home or self-care (01) | DRG 378 ==
LOC: N.ED 13:19 → N.EDINP 14:58 → N.TELES 19:00
PROVIDERS: ADMIT Internal Medicine Cardiovascular Disease; ATTEND Internal Medicine Cardiovascular Disease

== ENCOUNTER 2019-10-31 18:25 | Inpatient (IN) ==
[2019-10-31 19:12] LABS: Basophils % 0.4 % (0.0-0.8); Eosinophils # 0.2 10*3/uL (0.0-0.87); Eosinophils % 2.5 % (0.00-10.9); Hematocrit 26.5 VOL% (42.0-52.0); Hemoglobin 8.5 GM/DL (14.0-18.0); Immature Granulocytes Absolute 0.16 #; Lymphocytes # 0.8 10*3/uL (1.4-4.0); Lymphocytes % 10.3 % (21.2-54.2); Mean Corpuscular HGB Conc 32.1 GM/DL (32-36); Mean Corpuscular Volume 90.4 FL (87-102); Mean Platelet Volume 12.8 FL (9.6-12.0); Monocytes % 13.4 % (1.7-12.7); NRBC # 0.05 10*3/uL; Neutrophils % 71.4 % (38.7-73.9); Platelet Count 78 T/CUMM (130-400); Red Blood Count 2.93 MC/CUMM (3.8-5.5); Red Cell Distribution Width 17.9 % (9.3-17.3); White Blood Count 7.9 T/CUMM (4-12)
[2019-10-31 19:21] LABS: Albumin 3.2 G/DL (3.4-5.0); Bilirubin,Total 0.4 MG/DL (0.2-1.0); Calcium 9.7 MG/DL (8.5-10.1); Total Protein 7.6 G/DL (6.4-8.3)
[2019-10-31 19:46] LABS: Anisocytosis Slight; Hypochromasia 1+; Microcytosis 1+; Ovalocytes Few; Platelet Estimate Decreased; Poikilocytosis Slight; Tear Drop Cells Few
[2019-10-31] MEDS ORDERED: MORPHINE 4 MG/1 ML VIAL IV STA (20:08)
[2019-10-31] MEDS ORDERED: ASPIRIN 325 MG TABLET PO STA (20:08)
[2019-10-31] MEDS ORDERED: ONDANSETRON 4 MG/2 ML VIAL IV STA (20:08)
[2019-10-31] MEDS ORDERED: NITROGLYCERIN 2% OINT 1 INCH/GM PACK TOP STA (20:08)
[2019-10-31] MEDS ORDERED: MORPHINE 4 MG/1 ML VIAL IV PRN (20:32)
[2019-10-31] MEDS ORDERED: NICOTINE 21 MG/24 HR PATCH TRANSDERM PRN (20:32)
[2019-10-31] MEDS ORDERED: diphenhydrAMINE CAP 25 MG CAPSULE PO PRN (20:32)
[2019-10-31] MEDS ORDERED: ONDANSETRON 4 MG/2 ML VIAL IV PRN (20:32)
[2019-10-31] MEDS ORDERED: guaiFENesin/DM ER 600-30 MG TABLET PO PRN (20:32)
[2019-10-31] MEDS ORDERED: GLUCAGON 1 MG VIAL IM PRN (20:32)
[2019-10-31] MEDS ORDERED: ACETAMINOPHEN 325 MG TABLET PO PRN (20:32)
[2019-10-31] MEDS ORDERED: DEXTROSE 10% 250 ML BAG IV PRN (21:38)
[2019-10-31 22:35] LABS: Risk Ratio 3.26; VLDL CHOLESTEROL 39.6 MG/DL
[2019-10-31 22:45] LABS: INR 1.1; PT Patient Result 11.4 SECS (9.6-12.2)
[2019-11-01] MEDS: INSULIN REGULAR 100 UNIT/ML SUBCUT SCH ×5 (00:05→21:39)
[2019-11-01 03:36] LABS: Apearance,Urine CLOUDY (Clear); Bilirubin,Urine Negative (Negative); Blood, Urine Negative (Negative); Glucose,Urine (UA) Negative (Negative); Ketones,Urine Negative (Negative); Mucus,Urine Occasional /LPF (Occasional); Nitrite,Urine Negative (Negative); Protein,Urine Negative; RBC,Urine 62 /HPF (0-4); Urine Color Yellow (Yellow); Urine Specific Gravity 1.009 (1.001-1.035); Urine Urobilinogen < 2.0 EU/DL (0.2-1.0); WBC,Urine 2094 /HPF (0-6)
[2019-11-01] MEDS: cefTRIAXone 1,000 MG in SYRINGE 1 EACH IV SCH (05:12)
[2019-11-01] MEDS ORDERED: metOLazone 5 MG TABLET PO PRN (05:12)
[2019-11-01] MEDS: LEVOTHYROXINE 88 MCG TABLET PO SCH (06:06)
[2019-11-01] MEDS ORDERED: APIXABAN 2.5 MG TABLET PO SCH (09:00)
[2019-11-01 09:42] LABS: Basophils % 0.5 % (0.0-0.8); Eosinophils # 0.2 10*3/uL (0.0-0.87); Eosinophils % 2.2 % (0.00-10.9); Hematocrit 25.1 VOL% (42.0-52.0); Immature Granulocytes % 1.1 %; Immature Granulocytes Absolute 0.09 #; Lymphocytes # 0.8 10*3/uL (1.4-4.0); Lymphocytes % 9.6 % (21.2-54.2); Mean Corpuscular HGB Conc 31.9 GM/DL (32-36); Mean Corpuscular Volume 90.3 FL (87-102); Mean Platelet Volume 13.1 FL (9.6-12.0); Monocytes % 12.3 % (1.7-12.7); NRBC # 0.04 10*3/uL; Neutrophils % 74.3 % (38.7-73.9); Red Blood Count 2.78 MC/CUMM (3.8-5.5); Red Cell Distribution Width 17.9 % (9.3-17.3); White Blood Count 8.4 T/CUMM (4-12)
[2019-11-01] MEDS: INSULIN LISPRO 100 UNIT/ML SUBCUT SCH ×3 (09:44→17:24)
[2019-11-01 09:45] LABS: Platelet Count 75 T/CUMM (130-400)
[2019-11-01] MEDS: MULTIVITAMIN (OCUVITE) TABLET PO SCH (09:45)
[2019-11-01] MEDS: RANOLAZINE 500 MG TABLET PO SCH ×2 (09:45→20:43)
[2019-11-01] MEDS: PREGABALIN 100 MG CAPSULE PO SCH ×3 (09:45→20:43)
[2019-11-01] MEDS: sitaGLIPtin 25 MG TABLET PO SCH (09:46)
[2019-11-01] MEDS: TAMSULOSIN 0.4 MG CAPSULE PO SCH (09:46)
[2019-11-01] MEDS: POTASSIUM CHLORIDE 20 MEQ TABLET PO SCH ×3 (09:46→20:44)
[2019-11-01] MEDS: carvediloL 25 MG TABLET PO SCH ×2 (09:46→16:03)
[2019-11-01] MEDS: INSULIN GLARGINE 100 UNIT/ML SUBCUT SCH ×2 (09:47→20:43)
[2019-11-01] MEDS: Magnesium 200 MG PO SCH ×2 (09:50→20:51)
[2019-11-01 09:52] LABS: Calcium 9.1 MG/DL (8.5-10.1); Osmolality,Calculated 297.2 MOS/KG (273-304)
[2019-11-01 09:57] LABS: CKMB % 4.4 %
[2019-11-01 09:58] LABS: Troponin I 0.06 NG/ML (0.00-0.045)
[2019-11-01 10:18] LABS: Anisocytosis 1+; Hypochromasia 1+; Platelet Estimate Decreased; Polychromasia Slight
[2019-11-01 10:19] LABS: Microcytosis 1+
[2019-11-01] MEDS ORDERED: SODIUM CHLORIDE 0.9% 1,000 ML IV PRN (10:38)
[2019-11-01 12:15] LABS: Troponin I 0.049 NG/ML (0.00-0.045)
[2019-11-01 12:43] LABS: % Iron Saturation 11.3 % (18-50)
[2019-11-01 20:44] LABS: Hematocrit 29.4 VOL% (42.0-52.0)
[2019-11-01] MEDS: BISACODYL 5 MG TABLET PO PRN (20:44)
[2019-11-01] MEDS: ROSUVASTATIN 20 MG TABLET PO SCH (20:44)
[2019-11-01] MEDS: IRON (CARBONYL) 45 MG TABLET PO SCH (20:44)
[2019-11-01 20:45] LABS: Hemoglobin 9.7 GM/DL (14.0-18.0)
[2019-11-01] MEDS ORDERED: PANTOPRAZOLE 40 MG TABLET PO SCH (21:00)
[2019-11-01] MEDS ORDERED: ASPIRIN EC 81 MG TABLET PO SCH (21:00)
[2019-11-02 04:56] LABS: Basophils % 0.4 % (0.0-0.8); Eosinophils # 0.1 10*3/uL (0.0-0.87); Eosinophils % 1.2 % (0.00-10.9); Hematocrit 30.7 VOL% (42.0-52.0); Hemoglobin 9.9 GM/DL (14.0-18.0); Immature Granulocytes % 0.7 %; Immature Granulocytes Absolute 0.07 #; Lymphocytes % 9.5 % (21.2-54.2); Mean Corpuscular HGB Conc 32.2 GM/DL (32-36); Mean Corpuscular Volume 90.8 FL (87-102); Monocytes % 14.6 % (1.7-12.7); NRBC # 0.03 10*3/uL; Neutrophils % 73.6 % (38.7-73.9); Platelet Count 73 T/CUMM (130-400); Red Blood Count 3.38 MC/CUMM (3.8-5.5); Red Cell Distribution Width 17.4 % (9.3-17.3); White Blood Count 10.2 T/CUMM (4-12)
[2019-11-02 05:25] LABS: Calcium 9.1 MG/DL (8.5-10.1)
[2019-11-02 05:46] LABS: Anisocytosis 1+; Hypochromasia 1+; Microcytosis 1+; Ovalocytes Slight; Platelet Estimate Decreased
[2019-11-02] MEDS: LEVOTHYROXINE 88 MCG TABLET PO SCH (05:50)
[2019-11-02] MEDS: cefTRIAXone 1,000 MG in SYRINGE 1 EACH IV SCH (05:50)
[2019-11-02] MEDS: INSULIN LISPRO 100 UNIT/ML SUBCUT SCH ×3 (09:08→17:15)
[2019-11-02] MEDS: INSULIN GLARGINE 100 UNIT/ML SUBCUT SCH ×2 (09:08→21:30)
[2019-11-02] MEDS: sitaGLIPtin 25 MG TABLET PO SCH (09:09)
[2019-11-02] MEDS: carvediloL 25 MG TABLET PO SCH ×2 (09:09→17:15)
[2019-11-02] MEDS: TAMSULOSIN 0.4 MG CAPSULE PO SCH (09:09)
[2019-11-02] MEDS: MULTIVITAMIN (OCUVITE) TABLET PO SCH (09:09)
[2019-11-02] MEDS: RANOLAZINE 500 MG TABLET PO SCH ×2 (09:09→21:18)
[2019-11-02] MEDS: PREGABALIN 100 MG CAPSULE PO SCH ×3 (09:09→21:18)
[2019-11-02] MEDS: POTASSIUM CHLORIDE 20 MEQ TABLET PO SCH ×3 (09:09→21:18)
[2019-11-02] MEDS: INSULIN REGULAR 100 UNIT/ML SUBCUT SCH ×4 (09:10→21:19)
[2019-11-02] MEDS: Magnesium 200 MG PO SCH ×2 (09:11→21:29)
[2019-11-02] MEDS: FUROSEMIDE 40 MG/4 ML VIAL IV SCH (17:14)
[2019-11-02] MEDS: ROSUVASTATIN 20 MG TABLET PO SCH (21:18)
[2019-11-02] MEDS: BISACODYL 5 MG TABLET PO PRN (21:30)
[2019-11-02] MEDS: IRON (CARBONYL) 45 MG TABLET PO SCH (21:40)
[2019-11-02] MEDS: PANTOPRAZOLE 40 MG TABLET PO SCH (21:40)
[2019-11-03 04:38] LABS: Basophils % 0.3 % (0.0-0.8); Eosinophils # 0.1 10*3/uL (0.0-0.87); Eosinophils % 0.8 % (0.00-10.9); Hematocrit 28.8 VOL% (42.0-52.0); Hemoglobin 9.2 GM/DL (14.0-18.0); Immature Granulocytes % 0.8 %; Immature Granulocytes Absolute 0.07 #; Lymphocytes # 0.9 10*3/uL (1.4-4.0); Lymphocytes % 10.2 % (21.2-54.2); Mean Corpuscular HGB Conc 31.9 GM/DL (32-36); Mean Corpuscular Volume 91.4 FL (87-102); Mean Platelet Volume 12.8 FL (9.6-12.0); NRBC # 0.02 10*3/uL; Neutrophils % 72.9 % (38.7-73.9); Platelet Count 63 T/CUMM (130-400); Red Blood Count 3.15 MC/CUMM (3.8-5.5); Red Cell Distribution Width 17.7 % (9.3-17.3)
[2019-11-03 05:01] LABS: Hypochromasia Slight; Ovalocytes Slight; Platelet Estimate Decreased
[2019-11-03 05:02] LABS: Microcytosis 1+
[2019-11-03] MEDS: LEVOTHYROXINE 88 MCG TABLET PO SCH (05:37)
[2019-11-03] MEDS: cefTRIAXone 1,000 MG in SYRINGE 1 EACH IV SCH (05:37)
[2019-11-03] MEDS: Magnesium 200 MG PO SCH ×2 (09:32→21:26)
[2019-11-03] MEDS: INSULIN REGULAR 100 UNIT/ML SUBCUT SCH ×4 (09:33→21:18)
[2019-11-03] MEDS: INSULIN LISPRO 100 UNIT/ML SUBCUT SCH ×3 (09:33→17:54)
[2019-11-03] MEDS: carvediloL 25 MG TABLET PO SCH ×2 (09:34→17:54)
[2019-11-03] MEDS: FUROSEMIDE 40 MG/4 ML VIAL IV SCH ×2 (09:34→17:54)
[2019-11-03] MEDS: PREGABALIN 100 MG CAPSULE PO SCH ×3 (09:36→21:26)
[2019-11-03] MEDS: TAMSULOSIN 0.4 MG CAPSULE PO SCH (09:36)
[2019-11-03] MEDS: sitaGLIPtin 25 MG TABLET PO SCH (09:36)
[2019-11-03] MEDS: POTASSIUM CHLORIDE 20 MEQ TABLET PO SCH ×3 (09:36→21:18)
[2019-11-03] MEDS: RANOLAZINE 500 MG TABLET PO SCH ×2 (09:37→21:17)
[2019-11-03] MEDS: PANTOPRAZOLE 40 MG TABLET PO SCH ×2 (09:37→21:17)
[2019-11-03] MEDS: INSULIN GLARGINE 100 UNIT/ML SUBCUT SCH ×2 (09:37→21:18)
[2019-11-03] MEDS: MULTIVITAMIN (OCUVITE) TABLET PO SCH (09:37)
[2019-11-03] MEDS: metOLazone 5 MG TABLET PO SCH (14:37)
[2019-11-03] MEDS: ROSUVASTATIN 20 MG TABLET PO SCH (21:17)
[2019-11-03] MEDS: IRON (CARBONYL) 45 MG TABLET PO SCH (21:17)
[2019-11-04] MEDS: LEVOTHYROXINE 88 MCG TABLET PO SCH (05:54)
[2019-11-04] MEDS: cefTRIAXone 1,000 MG in SYRINGE 1 EACH IV SCH (05:55)
[2019-11-04 06:04] LABS: Basophils % 0.2 % (0.0-0.8); Eosinophils # 0.2 10*3/uL (0.0-0.87); Eosinophils % 1.9 % (0.00-10.9); Hematocrit 29.5 VOL% (42.0-52.0); Hemoglobin 9.7 GM/DL (14.0-18.0); Immature Granulocytes Absolute 0.09 #; Lymphocytes # 0.7 10*3/uL (1.4-4.0); Lymphocytes % 7.8 % (21.2-54.2); Mean Corpuscular HGB Conc 32.9 GM/DL (32-36); Mean Corpuscular Volume 89.4 FL (87-102); Mean Platelet Volume 13.4 FL (9.6-12.0); Monocytes % 14.8 % (1.7-12.7); Neutrophils % 74.3 % (38.7-73.9); Platelet Count 74 T/CUMM (130-400); Red Cell Distribution Width 17.5 % (9.3-17.3)
[2019-11-04 06:23] LABS: Calcium 9.5 MG/DL (8.5-10.1)
[2019-11-04 06:34] LABS: Anisocytosis 2+; Lymphocytes 6 % (20-55); Macrocytosis 1+; Microcytosis 4+; Platelet Estimate Decreased; Segmented Neutrophils 78 % (50-85); Total Cells Counted 100
[2019-11-04 06:37] LABS: Calcium 9.2 MG/DL (8.5-10.1); Osmolality,Calculated 305.7 MOS/KG (273-304)
[2019-11-04] MEDS ORDERED: POTASSIUM CHLORIDE 20 MEQ/15 ML UDCUP PO ONE (08:03)
[2019-11-04] MEDS: INSULIN LISPRO 100 UNIT/ML SUBCUT SCH ×3 (09:42→17:55)
[2019-11-04] MEDS: INSULIN REGULAR 100 UNIT/ML SUBCUT SCH ×4 (09:42→21:13)
[2019-11-04] MEDS: FUROSEMIDE 40 MG/4 ML VIAL IV SCH ×2 (11:20→17:58)
[2019-11-04] MEDS: sitaGLIPtin 25 MG TABLET PO SCH (11:21)
[2019-11-04] MEDS: INSULIN GLARGINE 100 UNIT/ML SUBCUT SCH ×2 (11:21→21:14)
[2019-11-04] MEDS: carvediloL 25 MG TABLET PO SCH ×2 (11:21→17:57)
[2019-11-04] MEDS: POTASSIUM CHLORIDE 20 MEQ TABLET PO SCH ×3 (11:21→21:13)
[2019-11-04] MEDS: LACTATED RINGERS 1,000 ML IV SCH ×2 (11:21→12:08)
[2019-11-04] MEDS: TAMSULOSIN 0.4 MG CAPSULE PO SCH (11:21)
[2019-11-04] MEDS: PREGABALIN 100 MG CAPSULE PO SCH ×3 (11:22→21:13)
[2019-11-04] MEDS: PANTOPRAZOLE 40 MG TABLET PO SCH ×2 (11:22→21:13)
[2019-11-04] MEDS: RANOLAZINE 500 MG TABLET PO SCH ×2 (11:22→21:13)
[2019-11-04] MEDS: Magnesium 200 MG PO SCH ×2 (11:22→21:15)
[2019-11-04] MEDS: MULTIVITAMIN (OCUVITE) TABLET PO SCH ×2 (11:22→11:24)
[2019-11-04] MEDS: metOLazone 5 MG TABLET PO SCH (11:23)
[2019-11-04] MEDS ORDERED: LIDOCAINE 2% 5 ML VIAL ONE (13:32)
[2019-11-04] MEDS ORDERED: propofoL 200 MG/20 ML VIAL IV ONE (13:32)
[2019-11-04] MEDS ORDERED: ETOMIDATE 20 MG/10 ML VIAL IV ONE (13:32)
[2019-11-04] MEDS ORDERED: DEXTROSE 50% 25 GM/50 ML VIAL IV PRN (15:30)
[2019-11-04] MEDS ORDERED: GLUCAGON 1 MG VIAL IM PRN (15:30)
[2019-11-04] MEDS: ROSUVASTATIN 20 MG TABLET PO SCH (21:13)
[2019-11-04] MEDS: IRON (CARBONYL) 45 MG TABLET PO SCH (21:13)
[2019-11-05] MEDS: LEVOTHYROXINE 88 MCG TABLET PO SCH (06:05)
[2019-11-05] MEDS: cefTRIAXone 1,000 MG in SYRINGE 1 EACH IV SCH (06:05)
[2019-11-05 06:24] LABS: Basophils % 0.5 % (0.0-0.8); Eosinophils # 0.2 10*3/uL (0.0-0.87); Eosinophils % 3.8 % (0.00-10.9); Hematocrit 32.1 VOL% (42.0-52.0); Hemoglobin 10.5 GM/DL (14.0-18.0); Immature Granulocytes Absolute 0.06 #; Lymphocytes # 0.6 10*3/uL (1.4-4.0); Mean Corpuscular HGB Conc 32.7 GM/DL (32-36); Mean Corpuscular Volume 89.2 FL (87-102); Mean Platelet Volume 13.8 FL (9.6-12.0); Monocytes % 17.4 % (1.7-12.7); Neutrophils % 66.3 % (38.7-73.9); White Blood Count 5.8 T/CUMM (4-12)
[2019-11-05 06:26] LABS: Platelet Count 78 T/CUMM (130-400)
[2019-11-05 06:49] LABS: Eosinophils 2 % (0-10); Hypochromasia 1+; Lymphocytes 11 % (20-55); Ovalocytes Slight; Platelet Estimate Decreased; Segmented Neutrophils 77 % (50-85); Total Cells Counted 100
[2019-11-05 06:50] LABS: Microcytosis 1+
[2019-11-05 06:59] LABS: Calcium 9.7 MG/DL (8.5-10.1); Osmolality,Calculated 305.8 MOS/KG (273-304)
[2019-11-05] MEDS: INSULIN REGULAR 100 UNIT/ML SUBCUT SCH ×4 (08:39→20:59)
[2019-11-05] MEDS: TAMSULOSIN 0.4 MG CAPSULE PO SCH (09:11)
[2019-11-05] MEDS: RANOLAZINE 500 MG TABLET PO SCH ×2 (09:11→20:58)
[2019-11-05] MEDS: PREGABALIN 100 MG CAPSULE PO SCH ×3 (09:11→20:59)
[2019-11-05] MEDS: metOLazone 5 MG TABLET PO SCH (09:11)
[2019-11-05] MEDS: PANTOPRAZOLE 40 MG TABLET PO SCH ×2 (09:11→20:59)
[2019-11-05] MEDS: MULTIVITAMIN (OCUVITE) TABLET PO SCH (09:11)
[2019-11-05] MEDS: Magnesium 200 MG PO SCH ×2 (09:12→20:58)
[2019-11-05] MEDS: sitaGLIPtin 25 MG TABLET PO SCH (09:12)
[2019-11-05] MEDS: carvediloL 25 MG TABLET PO SCH ×2 (09:12→16:12)
[2019-11-05] MEDS: POTASSIUM CHLORIDE 20 MEQ TABLET PO SCH ×3 (09:12→20:59)
[2019-11-05] MEDS: INSULIN GLARGINE 100 UNIT/ML SUBCUT SCH ×2 (09:16→20:59)
[2019-11-05] MEDS: FUROSEMIDE 40 MG/4 ML VIAL IV SCH ×2 (09:17→16:13)
[2019-11-05] MEDS: INSULIN LISPRO 100 UNIT/ML SUBCUT SCH ×3 (09:23→16:13)
[2019-11-05] MEDS: BISACODYL 5 MG TABLET PO PRN (20:58)
[2019-11-05] MEDS: IRON (CARBONYL) 45 MG TABLET PO SCH (20:59)
[2019-11-05] MEDS: ROSUVASTATIN 20 MG TABLET PO SCH (20:59)
[2019-11-06 05:34] LABS: Basophils % 0.9 % (0.0-0.8); Eosinophils # 0.2 10*3/uL (0.0-0.87); Eosinophils % 5.1 % (0.00-10.9); Hematocrit 30.8 VOL% (42.0-52.0); Hemoglobin 10.1 GM/DL (14.0-18.0); Immature Granulocytes % 0.9 %; Immature Granulocytes Absolute 0.04 #; Lymphocytes # 0.8 10*3/uL (1.4-4.0); Lymphocytes % 17.2 % (21.2-54.2); Mean Corpuscular HGB Conc 32.8 GM/DL (32-36); Mean Corpuscular Volume 89.5 FL (87-102); Mean Platelet Volume 13.2 FL (9.6-12.0); Neutrophils % 58.9 % (38.7-73.9); Red Blood Count 3.44 MC/CUMM (3.8-5.5); Red Cell Distribution Width 16.8 % (9.3-17.3); White Blood Count 4.5 T/CUMM (4-12)
[2019-11-06 05:36] LABS: Platelet Count 80 T/CUMM (130-400)
[2019-11-06 05:53] LABS: Calcium 9.4 MG/DL (8.5-10.1); Osmolality,Calculated 304.4 MOS/KG (273-304)
[2019-11-06] MEDS: LEVOTHYROXINE 88 MCG TABLET PO SCH (05:55)
[2019-11-06] MEDS: cefTRIAXone 1,000 MG in SYRINGE 1 EACH IV SCH (05:55)
[2019-11-06 06:44] LABS: Eosinophils 6 % (0-10); Lymphocytes 17 % (20-55); Segmented Neutrophils 65 % (50-85); Total Cells Counted 100
[2019-11-06 06:47] LABS: Hypochromasia Slight; Platelet Estimate Decreased
[2019-11-06] MEDS: RANOLAZINE 500 MG TABLET PO SCH ×2 (08:38→21:21)
[2019-11-06] MEDS: PANTOPRAZOLE 40 MG TABLET PO SCH ×2 (08:39→21:20)
[2019-11-06] MEDS: MULTIVITAMIN (OCUVITE) TABLET PO SCH (08:39)
[2019-11-06] MEDS: POTASSIUM CHLORIDE 20 MEQ TABLET PO SCH ×3 (08:39→21:20)
[2019-11-06] MEDS: carvediloL 25 MG TABLET PO SCH ×2 (08:39→17:20)
[2019-11-06] MEDS: sitaGLIPtin 25 MG TABLET PO SCH (08:39)
[2019-11-06] MEDS: TAMSULOSIN 0.4 MG CAPSULE PO SCH (08:39)
[2019-11-06] MEDS: PREGABALIN 100 MG CAPSULE PO SCH ×3 (08:40→21:20)
[2019-11-06] MEDS: INSULIN GLARGINE 100 UNIT/ML SUBCUT SCH ×2 (08:40→21:21)
[2019-11-06] MEDS: INSULIN REGULAR 100 UNIT/ML SUBCUT SCH ×4 (08:41→21:21)
[2019-11-06] MEDS: INSULIN LISPRO 100 UNIT/ML SUBCUT SCH ×3 (08:42→17:20)
[2019-11-06] MEDS: FUROSEMIDE 40 MG/4 ML VIAL IV SCH ×2 (08:46→17:20)
[2019-11-06] MEDS: Magnesium 200 MG PO SCH ×2 (08:51→21:27)
[2019-11-06] MEDS ORDERED: MAGNESIUM CITRATE 300 ML BOTTLE PO ONE (09:16)
[2019-11-06] MEDS ORDERED: POLYETHYLENE GLYCOL POWDER 17 GM PACK PO SCH (21:00)
[2019-11-06] MEDS ORDERED: ASPIRIN EC 81 MG TABLET PO SCH (21:00)
[2019-11-06] MEDS: IRON (CARBONYL) 45 MG TABLET PO SCH (21:20)
[2019-11-06] MEDS: ROSUVASTATIN 20 MG TABLET PO SCH (21:20)
[2019-11-07 05:19] LABS: Basophils # 0.1 10*3/uL (0.0-0.2); Eosinophils # 0.3 10*3/uL (0.0-0.87); Eosinophils % 4.9 % (0.00-10.9); Hemoglobin 11.1 GM/DL (14.0-18.0); Immature Granulocytes % 0.8 %; Immature Granulocytes Absolute 0.04 #; Lymphocytes # 0.8 10*3/uL (1.4-4.0); Lymphocytes % 16.5 % (21.2-54.2); Mean Corpuscular HGB Conc 32.6 GM/DL (32-36); Mean Platelet Volume 12.7 FL (9.6-12.0); Monocytes % 17.5 % (1.7-12.7); Neutrophils % 59.3 % (38.7-73.9); Red Blood Count 3.82 MC/CUMM (3.8-5.5); Red Cell Distribution Width 16.3 % (9.3-17.3); White Blood Count 5.1 T/CUMM (4-12)
[2019-11-07 05:25] LABS: Platelet Count 87 T/CUMM (130-400)
[2019-11-07 05:41] LABS: Osmolality,Calculated 301.5 MOS/KG (273-304)
[2019-11-07] MEDS: LEVOTHYROXINE 88 MCG TABLET PO SCH (05:45)
[2019-11-07] MEDS: cefTRIAXone 1,000 MG in SYRINGE 1 EACH IV SCH (05:45)
[2019-11-07 05:46] LABS: Eosinophils 6 % (0-10); Hypochromasia 1+; Lymphocytes 21 % (20-55); Platelet Estimate Decreased; Segmented Neutrophils 60 % (50-85); Total Cells Counted 100
[2019-11-07] MEDS: MULTIVITAMIN (OCUVITE) TABLET PO SCH (10:34)
[2019-11-07] MEDS: TAMSULOSIN 0.4 MG CAPSULE PO SCH (10:34)
[2019-11-07] MEDS: sitaGLIPtin 25 MG TABLET PO SCH (10:34)
[2019-11-07] MEDS: RANOLAZINE 500 MG TABLET PO SCH (10:34)
[2019-11-07] MEDS: carvediloL 25 MG TABLET PO SCH (10:35)
[2019-11-07] MEDS: POTASSIUM CHLORIDE 20 MEQ TABLET PO SCH ×2 (10:35→16:13)
[2019-11-07] MEDS: PREGABALIN 100 MG CAPSULE PO SCH ×2 (10:35→16:13)
[2019-11-07] MEDS: PANTOPRAZOLE 40 MG TABLET PO SCH (10:35)
[2019-11-07] MEDS: FUROSEMIDE 40 MG/4 ML VIAL IV SCH (10:35)
[2019-11-07] MEDS: INSULIN LISPRO 100 UNIT/ML SUBCUT SCH ×3 (10:36→17:35)
[2019-11-07] MEDS: INSULIN GLARGINE 100 UNIT/ML SUBCUT SCH (10:37)
[2019-11-07] MEDS: INSULIN REGULAR 100 UNIT/ML SUBCUT SCH ×3 (10:37→17:35)
[2019-11-07] MEDS: Magnesium 200 MG PO SCH (10:38)
[2019-11-07 11:40] VITALS: BP 146/81
[2019-11-07] MEDS ORDERED: POLYETHYLENE GLYCOL POWDER 17 GM PACK PO SCH (21:00)
[2019-11-08] MEDS ORDERED: FUROSEMIDE 80 MG TABLET PO SCH (09:00)
== END 2019-11-07 16:47 | disposition home or self-care (01) | DRG 378 ==
LOC: N.ED 18:25 → N.EDINP 20:35 → SUATTDRO 20:35 → N.TELEN 21:12
PROVIDERS: ADMIT Internal Medicine Geriatric Medicine; ATTEND Internal Medicine

== ENCOUNTER 2020-04-09 18:31 | Inpatient (IN) ==
[2020-04-09 19:12] LABS: Eosinophils # 0.1 10*3/uL (0.0-0.87); Eosinophils % 1.4 % (0.00-10.9); Hematocrit 33.2 VOL% (42.0-52.0); Hemoglobin 11.2 GM/DL (14.0-18.0); Immature Granulocytes % 1.2 %; Immature Granulocytes Absolute 0.05 #; Lymphocytes # 0.7 10*3/uL (1.4-4.0); Lymphocytes % 15.9 % (21.2-54.2); Mean Corpuscular HGB Conc 33.7 GM/DL (32-36); Mean Corpuscular Volume 84.9 FL (87-102); Monocytes % 15.4 % (1.7-12.7); Neutrophils % 66.1 % (38.7-73.9); Platelet Count 55 T/CUMM (130-400); Red Blood Count 3.91 MC/CUMM (3.8-5.5); Red Cell Distribution Width 20.8 % (9.3-17.3); White Blood Count 4.3 T/CUMM (4-12)
[2020-04-09 19:21] LABS: INR 1.1; PT Patient Result 11.3 SECS (9.8-11.9); Partial Thromboplastin Time 33.4 SECS (23.9-33.8)
[2020-04-09 19:29] LABS: Albumin 2.9 G/DL (3.4-5.0); Bilirubin,Total 0.5 MG/DL (0.2-1.0); Calcium 9.6 MG/DL (8.5-10.1); Total Protein 7.5 G/DL (6.4-8.3)
[2020-04-09 19:53] LABS: Apearance,Urine CLEAR (Clear); Bilirubin,Urine Negative (Negative); Blood, Urine Negative (Negative); Glucose,Urine (UA) Negative (Negative); Hyaline Casts,Urine 4 /LPF (0-3); Ketones,Urine Negative (Negative); Nitrite,Urine Negative (Negative); Protein,Urine Negative; Squamous Epithelial Cell,Urine Occasional /HPF (0-10); Urine Color Yellow (Yellow); Urine Specific Gravity 1.008 (1.001-1.035); Urine Urobilinogen < 2.0 EU/DL (0.2-1.0)
[2020-04-09] MEDS ORDERED: DEXTROSE 50% 25 GM/50 ML VIAL IV STA (20:18)
[2020-04-09] MEDS ORDERED: INSULIN REGULAR 100 UNIT/ML IV STA (20:18)
[2020-04-09 22:14] LABS: Microcytosis Slight; Platelet Estimate Decreased
[2020-04-09 23:59] LABS: Ferritin 616.7 ng/ml (26-388)
[2020-04-10] MEDS ORDERED: ONDANSETRON 4 MG/2 ML VIAL IV PRN (00:24)
[2020-04-10] MEDS ORDERED: DEXTROSE 50% 25 GM/50 ML VIAL IV PRN (00:24)
[2020-04-10] MEDS ORDERED: GLUCAGON 1 MG VIAL IM PRN (00:24)
[2020-04-10] MEDS ORDERED: ACETAMINOPHEN 325 MG TABLET PO PRN (00:24)
[2020-04-10] MEDS ORDERED: cefTRIAXone 1,000 MG in SYRINGE 1 EACH IV SCH (01:00)
[2020-04-10] MEDS ORDERED: AZITHROMYCIN INJ 500 MG in SODIUM CHLORIDE 0.9% 250 ML IV SCH (01:30)
[2020-04-10 06:27] LABS: Eosinophils % 0.9 % (0.00-10.9); Hematocrit 34.3 VOL% (42.0-52.0); Hemoglobin 11.3 GM/DL (14.0-18.0); Immature Granulocytes % 1.5 %; Immature Granulocytes Absolute 0.05 #; Lymphocytes # 0.6 10*3/uL (1.4-4.0); Mean Corpuscular HGB Conc 32.9 GM/DL (32-36); Mean Corpuscular Volume 84.9 FL (87-102); Mean Platelet Volume 12.3 FL (9.6-12.0); Monocytes % 15.4 % (1.7-12.7); Neutrophils % 64.2 % (38.7-73.9); Red Blood Count 4.04 MC/CUMM (3.8-5.5); Red Cell Distribution Width 20.3 % (9.3-17.3); White Blood Count 3.4 T/CUMM (4-12)
[2020-04-10 06:31] LABS: Platelet Count 53 T/CUMM (130-400)
[2020-04-10 06:59] LABS: Hypochromasia 1+; Microcytosis Slight; Platelet Estimate Decreased
[2020-04-10 07:07] LABS: Calcium 9.2 MG/DL (8.5-10.1); Osmolality,Calculated 300.5 MOS/KG (273-304); Thyroid Stimulating Hormone 0.475 uIU/ml (0.358-3.74)
[2020-04-10 07:29] VITALS: BP 113/57
[2020-04-10] MEDS ORDERED: INSULIN LISPRO 100 UNIT/ML SUBCUT SCH (07:30)
[2020-04-10] MEDS ORDERED: POTASSIUM CHLORIDE 20 MEQ TABLET PO ONE (10:00)
[2020-04-10] MEDS ORDERED: MAGNESIUM SULF RIDER 2 GM in PREMIX 1 EACH IV ONE (10:00)
[2020-04-11] MEDS ORDERED: AZITHROMYCIN 250 MG TABLET PO SCH (09:00)
== END 2020-04-10 11:45 | disposition left against medical advice (07) | DRG 177 ==
LOC: N.ED 18:31 → N.EDINP 04-10 00:20 → N.2E 04-10 01:01
PROVIDERS: ADMIT Family Medicine; ATTEND Family Medicine

== ENCOUNTER 2020-04-11 11:50 | Inpatient (IN) ==
[2020-04-11] MEDS ORDERED: FUROSEMIDE 100 MG/10 ML VIAL IV STA (12:13)
[2020-04-11] MEDS ORDERED: ALBUTEROL/IPRATROPIUM 3 ML NEB RESP TX STA (12:13)
[2020-04-11 12:41] LABS: Ferritin 888.9 ng/ml (26-388)
[2020-04-11] MEDS ORDERED: GLUCAGON 1 MG VIAL IM PRN ×2 (14:38→15:00)
[2020-04-11] MEDS ORDERED: SIMETHICONE CHEW 125 MG TABLET PO PRN (14:38)
[2020-04-11] MEDS ORDERED: ALUMINUM/MAGNES/SIMETH MAX STR 30 ML UDCUP PO PRN (14:38)
[2020-04-11] MEDS ORDERED: CALCIUM CARBONATE CHEW 500 MG TABLET PO PRN (14:38)
[2020-04-11] MEDS ORDERED: DEXTROSE 50% 25 GM/50 ML VIAL IV PRN ×2 (14:38→15:00)
[2020-04-11 14:48] LABS: Albumin 2.7 G/DL (3.4-5.0); Bilirubin,Total 0.5 MG/DL (0.2-1.0); Calcium 9.5 MG/DL (8.5-10.1); Osmolality,Calculated 304.7 MOS/KG (273-304); Total Protein 7.4 G/DL (6.4-8.3)
[2020-04-11 15:00] LABS: ABG Base Excess 0.4 MMOL/L (-2.5-2.5); ABG HCO3 24.7 MMOL/L (20-26); ABG Oxygen Saturation 96.2 % (95-100); ABG PCO2 40.9 MM HG (35-48); ABG PH 7.398 (7.35-7.45); ABG PO2 84.9 MM HG (80-95); ABG TCO2 22.4 MMOL/L (23-27)
[2020-04-11] MEDS ORDERED: diphenhydrAMINE CAP 25 MG CAPSULE PO PRN (15:00)
[2020-04-11] MEDS ORDERED: LACTULOSE 20 GM/30 ML UDCUP PO PRN (15:00)
[2020-04-11] MEDS ORDERED: hydrALAZINE 20 MG/1 ML VIAL IV PRN (15:00)
[2020-04-11] MEDS ORDERED: ACETAMINOPHEN 325 MG TABLET PO PRN (15:00)
[2020-04-11] MEDS ORDERED: metOLazone 5 MG TABLET PO PRN (15:04)
[2020-04-11] MEDS ORDERED: KETOCONAZOLE 2% CREAM 30 GM TUBE TOP PRN (15:04)
[2020-04-11 15:07] LABS: Basophils % 0.3 % (0.0-0.8); Eosinophils % 0.3 % (0.00-10.9); Hematocrit 36.1 VOL% (42.0-52.0); Hemoglobin 11.7 GM/DL (14.0-18.0); Immature Granulocytes % 1.9 %; Immature Granulocytes Absolute 0.07 #; Lymphocytes # 0.6 10*3/uL (1.4-4.0); Lymphocytes % 15.1 % (21.2-54.2); Mean Corpuscular HGB Conc 32.4 GM/DL (32-36); Mean Corpuscular Volume 86.6 FL (87-102); Mean Platelet Volume 12.1 FL (9.6-12.0); Monocytes % 16.4 % (1.7-12.7); Red Blood Count 4.17 MC/CUMM (3.8-5.5); Red Cell Distribution Width 20.3 % (9.3-17.3); White Blood Count 3.8 T/CUMM (4-12)
[2020-04-11 15:08] LABS: Platelet Count 64 T/CUMM (130-400)
[2020-04-11 15:28] LABS: Band Neutrophils 1 % (0-10); Lymphocytes 12 % (20-55); Segmented Neutrophils 76 % (50-85); Total Cells Counted 100
[2020-04-11 15:29] LABS: Anisocytosis Slight; Platelet Estimate Decreased; Polychromasia Few
[2020-04-11 16:22] LABS: Sedimentation Rate-Westergren 50 MM/HR (0-20)
[2020-04-11] MEDS: methylPREDNISolone SOD SUC 40 MG/1 ML VIAL IV SCH (20:19)
[2020-04-11] MEDS: HEPARIN 5,000 UNIT/1 ML VIAL SUBCUT SCH (20:19)
[2020-04-11] MEDS ORDERED: DOCUSATE SODIUM 100 MG CAPSULE PO PRN (21:00)
[2020-04-11] MEDS: POTASSIUM CHLORIDE 20 MEQ TABLET PO SCH (22:00)
[2020-04-11] MEDS: NYSTATIN/TRIAMCINOLONE CREAM 15 GM TUBE TOP SCH (22:00)
[2020-04-11] MEDS: RANOLAZINE 500 MG TABLET PO SCH (22:00)
[2020-04-11] MEDS: OMEGA 3 ACID ETHYL ESTERS 1 GM CAPSULE PO SCH (22:00)
[2020-04-11] MEDS: MULTIVITAMIN (CENTRUM) TABLET PO SCH (22:00)
[2020-04-11] MEDS: PANTOPRAZOLE 40 MG TABLET PO SCH (22:00)
[2020-04-11] MEDS: hydrALAZINE 25 MG TABLET PO SCH (22:00)
[2020-04-11] MEDS: PREGABALIN 100 MG CAPSULE PO SCH (22:00)
[2020-04-11] MEDS: MAGNESIUM OXIDE 400 MG TABLET PO SCH (22:00)
[2020-04-11] MEDS: POLYETHYLENE GLYCOL POWDER 17 GM PACK PO SCH (22:00)
[2020-04-11] MEDS: carvediloL 25 MG TABLET PO SCH (22:00)
[2020-04-11 23:02] LABS: Apearance,Urine CLEAR (Clear); Bilirubin,Urine Negative (Negative); Blood, Urine Negative (Negative); Glucose,Urine (UA) Negative (Negative); Hyaline Casts,Urine 4 /LPF (0-3); Ketones,Urine Negative (Negative); Mucus,Urine Occasional /LPF (Occasional); Nitrite,Urine Negative (Negative); Protein,Urine Negative; RBC,Urine <1 /HPF (0-4); Sperm,Urine Occasional /HPF (Negative); Urine Color Yellow (Yellow); Urine Specific Gravity 1.009 (1.001-1.035); Urine Urobilinogen < 2.0 EU/DL (0.2-1.0); WBC,Urine 1 /HPF (0-6)
[2020-04-12] MEDS: HEPARIN 5,000 UNIT/1 ML VIAL SUBCUT SCH ×3 (04:30→20:27)
[2020-04-12 04:42] LABS: Basophils % 0.4 % (0.0-0.8); Hematocrit 33.3 VOL% (42.0-52.0); Hemoglobin 11.3 GM/DL (14.0-18.0); Immature Granulocytes Absolute 0.05 #; Lymphocytes # 0.3 10*3/uL (1.4-4.0); Lymphocytes % 11.7 % (21.2-54.2); Mean Corpuscular HGB Conc 33.9 GM/DL (32-36); Mean Corpuscular Volume 83.7 FL (87-102); Monocytes % 5.2 % (1.7-12.7); Neutrophils % 80.7 % (38.7-73.9); Platelet Count 68 T/CUMM (130-400); Red Blood Count 3.98 MC/CUMM (3.8-5.5); Red Cell Distribution Width 19.7 % (9.3-17.3); White Blood Count 2.5 T/CUMM (4-12)
[2020-04-12 05:07] LABS: Eosinophils 1 % (0-10); Lymphocytes 13 % (20-55); Segmented Neutrophils 82 % (50-85); Total Cells Counted 100
[2020-04-12 05:08] LABS: Anisocytosis 1+; Hypochromasia 1+; Ovalocytes Few; Platelet Estimate Decreased
[2020-04-12 05:08] LABS: Albumin 2.6 G/DL (3.4-5.0); Bilirubin,Total 0.7 MG/DL (0.2-1.0); Calcium 9.3 MG/DL (8.5-10.1); Ferritin 1056.4 ng/ml (26-388); Total Protein 7.4 G/DL (6.4-8.3)
[2020-04-12 06:10] LABS: Sedimentation Rate-Westergren 111 MM/HR (0-20)
[2020-04-12 06:13] LABS: Risk Ratio 4.73; Thyroid Stimulating Hormone 0.526 uIU/ml (0.358-3.74)
[2020-04-12] MEDS: LEVOTHYROXINE 88 MCG TABLET PO SCH (06:20)
[2020-04-12] MEDS: methylPREDNISolone SOD SUC 40 MG/1 ML VIAL IV SCH ×2 (07:56→20:26)
[2020-04-12] MEDS: INSULIN LISPRO 100 UNIT/ML SUBCUT SCH ×5 (08:00→23:37)
[2020-04-12] MEDS: RANOLAZINE 500 MG TABLET PO SCH ×2 (08:00→20:25)
[2020-04-12] MEDS: MAGNESIUM OXIDE 400 MG TABLET PO SCH ×2 (08:01→20:26)
[2020-04-12] MEDS: PREGABALIN 100 MG CAPSULE PO SCH ×3 (08:01→20:26)
[2020-04-12] MEDS: sitaGLIPtin 25 MG TABLET PO SCH (08:02)
[2020-04-12] MEDS: hydrALAZINE 25 MG TABLET PO SCH ×3 (08:02→20:25)
[2020-04-12] MEDS: carvediloL 25 MG TABLET PO SCH ×2 (08:02→20:25)
[2020-04-12] MEDS: NYSTATIN/TRIAMCINOLONE CREAM 15 GM TUBE TOP SCH ×2 (08:02→20:27)
[2020-04-12] MEDS: OMEGA 3 ACID ETHYL ESTERS 1 GM CAPSULE PO SCH ×2 (08:02→20:25)
[2020-04-12] MEDS: TAMSULOSIN 0.4 MG CAPSULE PO SCH (08:02)
[2020-04-12] MEDS: POTASSIUM CHLORIDE 20 MEQ TABLET PO SCH ×3 (08:02→20:25)
[2020-04-12] MEDS: FUROSEMIDE 80 MG TABLET PO SCH (08:21)
[2020-04-12] MEDS: MULTIVITAMIN (OCUVITE) TABLET PO SCH (08:21)
[2020-04-12] MEDS: ROSUVASTATIN 20 MG TABLET PO SCH (08:21)
[2020-04-12] MEDS ORDERED: PANTOPRAZOLE 40 MG TABLET PO SCH (09:00)
[2020-04-12] MEDS ORDERED: [UNRECOGNIZED DRUG - REMARK] PO SCH (09:00)
[2020-04-12] MEDS ORDERED: BISACODYL 5 MG TABLET PO PRN (09:00)
[2020-04-12] MEDS: PANTOPRAZOLE 40 MG TABLET PO SCH (20:25)
[2020-04-12] MEDS: MULTIVITAMIN (CENTRUM) TABLET PO SCH (20:25)
[2020-04-12] MEDS: POLYETHYLENE GLYCOL POWDER 17 GM PACK PO SCH (20:27)
[2020-04-13] MEDS: HEPARIN 5,000 UNIT/1 ML VIAL SUBCUT SCH ×3 (03:41→21:34)
[2020-04-13 04:20] LABS: Hematocrit 34.2 VOL% (42.0-52.0); Hemoglobin 11.5 GM/DL (14.0-18.0); Immature Granulocytes % 0.9 %; Immature Granulocytes Absolute 0.04 #; Lymphocytes # 0.3 10*3/uL (1.4-4.0); Lymphocytes % 5.7 % (21.2-54.2); Mean Corpuscular HGB Conc 33.6 GM/DL (32-36); Mean Corpuscular Volume 84.2 FL (87-102); Mean Platelet Volume 13.3 FL (9.6-12.0); Neutrophils % 84.4 % (38.7-73.9); Red Blood Count 4.06 MC/CUMM (3.8-5.5); Red Cell Distribution Width 18.8 % (9.3-17.3); White Blood Count 4.6 T/CUMM (4-12)
[2020-04-13 04:21] LABS: Platelet Count 71 T/CUMM (130-400)
[2020-04-13 04:46] LABS: Hypochromasia 1+; Microcytosis Slight; Ovalocytes Slight; Platelet Estimate Decreased
[2020-04-13 05:00] LABS: Albumin 2.6 G/DL (3.4-5.0); Bilirubin,Total 0.5 MG/DL (0.2-1.0); Calcium 9.3 MG/DL (8.5-10.1); Ferritin 1272.6 ng/ml (26-388); Osmolality,Calculated 326.7 MOS/KG (273-304); Total Protein 7.2 G/DL (6.4-8.3)
[2020-04-13 05:18] LABS: Sedimentation Rate-Westergren 92 MM/HR (0-20)
[2020-04-13] MEDS: LEVOTHYROXINE 88 MCG TABLET PO SCH (05:41)
[2020-04-13] MEDS: OMEGA 3 ACID ETHYL ESTERS 1 GM CAPSULE PO SCH ×2 (08:23→21:31)
[2020-04-13] MEDS: sitaGLIPtin 25 MG TABLET PO SCH (08:23)
[2020-04-13] MEDS: FUROSEMIDE 80 MG TABLET PO SCH (08:23)
[2020-04-13] MEDS: carvediloL 25 MG TABLET PO SCH ×2 (08:24→21:35)
[2020-04-13] MEDS: hydrALAZINE 25 MG TABLET PO SCH ×3 (08:24→21:31)
[2020-04-13] MEDS: POTASSIUM CHLORIDE 20 MEQ TABLET PO SCH ×3 (08:25→21:46)
[2020-04-13] MEDS: PREGABALIN 100 MG CAPSULE PO SCH ×3 (08:25→21:31)
[2020-04-13] MEDS: RANOLAZINE 500 MG TABLET PO SCH ×2 (08:25→21:32)
[2020-04-13] MEDS: MAGNESIUM OXIDE 400 MG TABLET PO SCH ×2 (08:25→21:32)
[2020-04-13] MEDS: TAMSULOSIN 0.4 MG CAPSULE PO SCH (08:25)
[2020-04-13] MEDS: MULTIVITAMIN (OCUVITE) TABLET PO SCH (08:25)
[2020-04-13] MEDS: methylPREDNISolone SOD SUC 40 MG/1 ML VIAL IV SCH ×2 (08:26→21:44)
[2020-04-13] MEDS: NYSTATIN/TRIAMCINOLONE CREAM 15 GM TUBE TOP SCH ×2 (08:26→21:44)
[2020-04-13] MEDS: ROSUVASTATIN 20 MG TABLET PO SCH (08:26)
[2020-04-13] MEDS: INSULIN LISPRO 100 UNIT/ML SUBCUT SCH ×7 (08:27→21:31)
[2020-04-13] MEDS: INSULIN GLARGINE 100 UNIT/ML SUBCUT SCH (08:31)
[2020-04-13] MEDS: MULTIVITAMIN (CENTRUM) TABLET PO SCH (21:32)
[2020-04-13] MEDS: PANTOPRAZOLE 40 MG TABLET PO SCH (21:33)
[2020-04-13] MEDS: POLYETHYLENE GLYCOL POWDER 17 GM PACK PO SCH (21:44)
[2020-04-14 05:40] LABS: Hematocrit 34.7 VOL% (42.0-52.0); Hemoglobin 11.5 GM/DL (14.0-18.0); Immature Granulocytes % 1.4 %; Immature Granulocytes Absolute 0.11 #; Lymphocytes # 0.3 10*3/uL (1.4-4.0); Lymphocytes % 3.5 % (21.2-54.2); Mean Corpuscular HGB Conc 33.1 GM/DL (32-36); Monocytes % 4.4 % (1.7-12.7); Neutrophils % 90.7 % (38.7-73.9); Platelet Count 78 T/CUMM (130-400); Red Blood Count 4.13 MC/CUMM (3.8-5.5); Red Cell Distribution Width 18.9 % (9.3-17.3); White Blood Count 8.1 T/CUMM (4-12)
[2020-04-14] MEDS: HEPARIN 5,000 UNIT/1 ML VIAL SUBCUT SCH ×3 (05:54→21:27)
[2020-04-14] MEDS: LEVOTHYROXINE 88 MCG TABLET PO SCH (05:55)
[2020-04-14 06:08] LABS: Albumin 2.6 G/DL (3.4-5.0); Bilirubin,Total 2.2 MG/DL (0.2-1.0); Calcium 9.5 MG/DL (8.5-10.1); Ferritin 1298.7 ng/ml (26-388); Osmolality,Calculated 311.7 MOS/KG (273-304); Total Protein 7.2 G/DL (6.4-8.3)
[2020-04-14 07:31] LABS: Sedimentation Rate-Westergren 100 MM/HR (0-20)
[2020-04-14] MEDS: methylPREDNISolone SOD SUC 40 MG/1 ML VIAL IV SCH ×2 (09:55→21:32)
[2020-04-14] MEDS: TAMSULOSIN 0.4 MG CAPSULE PO SCH (09:55)
[2020-04-14] MEDS: ROSUVASTATIN 20 MG TABLET PO SCH (09:56)
[2020-04-14] MEDS: PREGABALIN 100 MG CAPSULE PO SCH ×3 (09:56→21:27)
[2020-04-14] MEDS: FUROSEMIDE 80 MG TABLET PO SCH (09:56)
[2020-04-14] MEDS: MAGNESIUM OXIDE 400 MG TABLET PO SCH ×2 (09:56→21:26)
[2020-04-14] MEDS: MULTIVITAMIN (OCUVITE) TABLET PO SCH (09:56)
[2020-04-14] MEDS: POTASSIUM CHLORIDE 20 MEQ TABLET PO SCH ×3 (09:56→21:27)
[2020-04-14] MEDS: sitaGLIPtin 25 MG TABLET PO SCH (09:57)
[2020-04-14] MEDS: OMEGA 3 ACID ETHYL ESTERS 1 GM CAPSULE PO SCH ×2 (09:57→21:28)
[2020-04-14] MEDS: carvediloL 25 MG TABLET PO SCH ×2 (09:58→21:28)
[2020-04-14] MEDS: NYSTATIN/TRIAMCINOLONE CREAM 15 GM TUBE TOP SCH ×2 (09:58→22:15)
[2020-04-14] MEDS: INSULIN GLARGINE 100 UNIT/ML SUBCUT SCH (09:58)
[2020-04-14] MEDS: hydrALAZINE 25 MG TABLET PO SCH ×3 (09:58→21:28)
[2020-04-14 10:54] LABS: Hypochromasia 1+; Lymphocytes 1 % (20-55); Ovalocytes Few; Platelet Estimate Decreased; Polychromasia Slight; Segmented Neutrophils 98 % (50-85); Tear Drop Cells Few; Total Cells Counted 100
[2020-04-14] MEDS: INSULIN LISPRO 100 UNIT/ML SUBCUT SCH ×7 (11:24→21:25)
[2020-04-14] MEDS: RANOLAZINE 500 MG TABLET PO SCH ×2 (12:41→21:28)
[2020-04-14] MEDS: cefTRIAXone 1,000 MG in SYRINGE 1 EACH IV SCH (16:56)
[2020-04-14] MEDS: AZITHROMYCIN 250 MG TABLET PO SCH (16:57)
[2020-04-14] MEDS: POLYETHYLENE GLYCOL POWDER 17 GM PACK PO SCH (21:25)
[2020-04-14] MEDS: MULTIVITAMIN (CENTRUM) TABLET PO SCH (21:27)
[2020-04-14] MEDS: PANTOPRAZOLE 40 MG TABLET PO SCH (21:28)
[2020-04-14] MEDS: ALBUTEROL INHALER 18 GM INH SCH (23:27)
[2020-04-15] MEDS: ALBUTEROL INHALER 18 GM INH SCH ×4 (01:41→19:00)
[2020-04-15 04:15] LABS: Basophils % 0.2 % (0.0-0.8); Hemoglobin 11.9 GM/DL (14.0-18.0); Immature Granulocytes Absolute 0.13 #; Lymphocytes # 0.2 10*3/uL (1.4-4.0); Lymphocytes % 2.9 % (21.2-54.2); Mean Corpuscular Volume 82.4 FL (87-102); Mean Platelet Volume 12.2 FL (9.6-12.0); Monocytes % 2.8 % (1.7-12.7); Neutrophils % 92.1 % (38.7-73.9); Platelet Count 76 T/CUMM (130-400); Red Blood Count 4.25 MC/CUMM (3.8-5.5); Red Cell Distribution Width 19.3 % (9.3-17.3); White Blood Count 6.5 T/CUMM (4-12)
[2020-04-15 04:33] LABS: Albumin 2.5 G/DL (3.4-5.0); Bilirubin,Total 0.6 MG/DL (0.2-1.0); Calcium 9.6 MG/DL (8.5-10.1); Ferritin 1661.9 ng/ml (26-388); Osmolality,Calculated 318.5 MOS/KG (273-304); Total Protein 7.4 G/DL (6.4-8.3)
[2020-04-15] MEDS: HEPARIN 5,000 UNIT/1 ML VIAL SUBCUT SCH ×3 (05:01→20:45)
[2020-04-15] MEDS: LEVOTHYROXINE 88 MCG TABLET PO SCH (06:05)
[2020-04-15 08:21] LABS: Band Neutrophils 3 % (0-10); Lymphocytes 4 % (20-55); Segmented Neutrophils 90 % (50-85); Total Cells Counted 100
[2020-04-15 08:22] LABS: Hypochromasia Slight; Platelet Estimate Decreased; Polychromasia 1+
[2020-04-15 08:39] LABS: Sedimentation Rate-Westergren 105 MM/HR (0-20)
[2020-04-15] MEDS: INSULIN LISPRO 100 UNIT/ML SUBCUT SCH ×7 (10:14→23:33)
[2020-04-15] MEDS: hydrALAZINE 25 MG TABLET PO SCH ×3 (10:15→23:29)
[2020-04-15] MEDS: TAMSULOSIN 0.4 MG CAPSULE PO SCH (10:16)
[2020-04-15] MEDS: INSULIN GLARGINE 100 UNIT/ML SUBCUT SCH (10:16)
[2020-04-15] MEDS: sitaGLIPtin 25 MG TABLET PO SCH (10:16)
[2020-04-15] MEDS: POTASSIUM CHLORIDE 20 MEQ TABLET PO SCH ×3 (10:16→23:30)
[2020-04-15] MEDS: carvediloL 25 MG TABLET PO SCH ×2 (10:16→23:29)
[2020-04-15] MEDS: ROSUVASTATIN 20 MG TABLET PO SCH (10:16)
[2020-04-15] MEDS: MAGNESIUM OXIDE 400 MG TABLET PO SCH ×2 (10:17→23:31)
[2020-04-15] MEDS: OMEGA 3 ACID ETHYL ESTERS 1 GM CAPSULE PO SCH ×2 (10:17→23:30)
[2020-04-15] MEDS: PREGABALIN 100 MG CAPSULE PO SCH ×3 (10:17→23:30)
[2020-04-15] MEDS: NYSTATIN/TRIAMCINOLONE CREAM 15 GM TUBE TOP SCH ×2 (10:17→20:45)
[2020-04-15] MEDS: FUROSEMIDE INJ 160 MG in SODIUM CHLORIDE 0.9% 50 ML IV SCH (10:17)
[2020-04-15] MEDS: RANOLAZINE 500 MG TABLET PO SCH ×2 (10:18→23:31)
[2020-04-15] MEDS: MULTIVITAMIN (OCUVITE) TABLET PO SCH (10:18)
[2020-04-15] MEDS: methylPREDNISolone SOD SUC 40 MG/1 ML VIAL IV SCH ×2 (10:18→20:45)
[2020-04-15] MEDS: AZITHROMYCIN 250 MG TABLET PO SCH (10:18)
[2020-04-15 11:28] LABS: ABG Base Excess 0.4 MMOL/L (-2.5-2.5); ABG HCO3 24.6 MMOL/L (20-26); ABG Oxygen Saturation 90.2 % (95-100); ABG PCO2 41.5 MM HG (35-48); ABG PH 7.394 (7.35-7.45); ABG PO2 62.7 MM HG (80-95); ABG TCO2 22.6 MMOL/L (23-27)
[2020-04-15 13:45] LABS: Hepatitis B Core IgM Quant 0.16 Index; Hepatitis B Surface Ag Quant 0.16 Index; Hepatitis B Surface Ag Result Negative (Negative); Hepatitis C Virus Ab Quant 0.04 Index; Hepatitis C Virus Ab Result Negative (Negative)
[2020-04-15 14:07] LABS: ABG Base Excess 0.4 MMOL/L (-2.5-2.5); ABG HCO3 25.2 MMOL/L (20-26); ABG Oxygen Saturation 97.9 % (95-100); ABG PH 7.406 (7.35-7.45); ABG PO2 141.7 MM HG (80-95); ABG TCO2 26.4 MMOL/L (23-27); Allen Test Positive; Pt O2 Delivery Device BIPAP
[2020-04-15 14:16] LABS: Apearance,Urine CLEAR (Clear); Bilirubin,Urine Negative (Negative); Blood, Urine Negative (Negative); Glucose,Urine (UA) Negative (Negative); Hyaline Casts,Urine 1 /LPF (0-3); Ketones,Urine Negative (Negative); Nitrite,Urine Negative (Negative); Protein,Urine Negative; RBC,Urine <1 /HPF (0-4); Urine Color Yellow (Yellow); Urine Urobilinogen < 2.0 EU/DL (0.2-1.0); WBC,Urine 1 /HPF (0-6)
[2020-04-15] MEDS: ALBUTEROL/IPRATROPIUM 3 ML NEB RESP TX SCH ×3 (14:44→20:21)
[2020-04-15] MEDS: DOPamine 800 MG/250 ML PREMIX IV PRN (15:00)
[2020-04-15] MEDS ORDERED: ALBUMIN 25% 25 GM in PREMIX 1 EACH IV ONE ×2 (15:13→16:15)
[2020-04-15] MEDS: cefTRIAXone 1,000 MG in SYRINGE 1 EACH IV SCH (17:45)
[2020-04-15] MEDS: MULTIVITAMIN (CENTRUM) TABLET PO SCH (23:29)
[2020-04-15] MEDS: POLYETHYLENE GLYCOL POWDER 17 GM PACK PO SCH (23:31)
[2020-04-15] MEDS: PANTOPRAZOLE 40 MG TABLET PO SCH (23:31)
[2020-04-16] MEDS: ALBUTEROL/IPRATROPIUM 3 ML NEB RESP TX SCH ×5 (01:00→20:30)
[2020-04-16] MEDS: ALBUTEROL INHALER 18 GM INH SCH ×4 (01:00→20:30)
[2020-04-16] MEDS: DOPamine 800 MG/250 ML PREMIX IV PRN (02:05)
[2020-04-16 04:40] LABS: Basophils % 0.1 % (0.0-0.8); Hematocrit 35.7 VOL% (42.0-52.0); Hemoglobin 11.8 GM/DL (14.0-18.0); Immature Granulocytes % 3.6 %; Immature Granulocytes Absolute 0.33 #; Lymphocytes # 0.2 10*3/uL (1.4-4.0); Lymphocytes % 1.6 % (21.2-54.2); Mean Corpuscular HGB Conc 33.1 GM/DL (32-36); Mean Corpuscular Volume 84.6 FL (87-102); Monocytes % 3.8 % (1.7-12.7); Neutrophils % 90.9 % (38.7-73.9); Platelet Count 92 T/CUMM (130-400); Red Blood Count 4.22 MC/CUMM (3.8-5.5); Red Cell Distribution Width 19.6 % (9.3-17.3); White Blood Count 9.3 T/CUMM (4-12)
[2020-04-16 05:07] LABS: Hypochromasia 1+; Lymphocytes 2 % (20-55); Platelet Estimate Decreased; Segmented Neutrophils 93 % (50-85); Total Cells Counted 100
[2020-04-16] MEDS: ONDANSETRON 4 MG/2 ML VIAL IV PRN ×3 (05:30→20:30)
[2020-04-16] MEDS: HEPARIN 5,000 UNIT/1 ML VIAL SUBCUT SCH ×3 (05:44→20:30)
[2020-04-16] MEDS: LEVOTHYROXINE 88 MCG TABLET PO SCH (05:44)
[2020-04-16 06:22] LABS: Bilirubin,Total 0.8 MG/DL (0.2-1.0); Calcium 9.4 MG/DL (8.5-10.1); Total Protein 7.4 G/DL (6.4-8.3)
[2020-04-16 07:56] LABS: Osmolality,Calculated 312.8 MOS/KG (273-304)
[2020-04-16 07:57] LABS: Albumin 3.2 G/DL (3.4-5.0); Ferritin 2953.8 ng/ml (26-388)
[2020-04-16] MEDS ORDERED: HEPARIN 10,000 UNIT/10 ML VIAL IV SCH (08:45)
[2020-04-16] MEDS: INSULIN GLARGINE 100 UNIT/ML SUBCUT SCH (09:25)
[2020-04-16] MEDS: MAGNESIUM OXIDE 400 MG TABLET PO SCH ×2 (11:34→20:30)
[2020-04-16] MEDS: PREGABALIN 100 MG CAPSULE PO SCH ×3 (11:35→20:30)
[2020-04-16] MEDS: INSULIN LISPRO 100 UNIT/ML SUBCUT SCH ×7 (11:35→21:47)
[2020-04-16] MEDS: ROSUVASTATIN 20 MG TABLET PO SCH (11:36)
[2020-04-16] MEDS: TAMSULOSIN 0.4 MG CAPSULE PO SCH (11:36)
[2020-04-16] MEDS: hydrALAZINE 25 MG TABLET PO SCH ×3 (11:36→20:30)
[2020-04-16] MEDS: carvediloL 25 MG TABLET PO SCH ×2 (11:37→20:30)
[2020-04-16] MEDS: NYSTATIN/TRIAMCINOLONE CREAM 15 GM TUBE TOP SCH ×2 (11:37→20:30)
[2020-04-16] MEDS: sitaGLIPtin 25 MG TABLET PO SCH (11:37)
[2020-04-16] MEDS: RANOLAZINE 500 MG TABLET PO SCH ×2 (11:37→20:30)
[2020-04-16] MEDS: methylPREDNISolone SOD SUC 40 MG/1 ML VIAL IV SCH ×2 (11:38→20:30)
[2020-04-16] MEDS: MULTIVITAMIN (OCUVITE) TABLET PO SCH (11:38)
[2020-04-16] MEDS: OMEGA 3 ACID ETHYL ESTERS 1 GM CAPSULE PO SCH ×2 (11:38→20:30)
[2020-04-16] MEDS: POTASSIUM CHLORIDE 20 MEQ TABLET PO SCH ×3 (11:38→20:30)
[2020-04-16] MEDS: AZITHROMYCIN 250 MG TABLET PO SCH (11:39)
[2020-04-16 11:44] LABS: Sedimentation Rate-Westergren 102 MM/HR (0-20)
[2020-04-16] MEDS: FUROSEMIDE INJ 160 MG in SODIUM CHLORIDE 0.9% 50 ML IV SCH (13:51)
[2020-04-16] MEDS ORDERED: SODIUM CHLORIDE 0.9% 1,000 ML IV PRN (15:48)
[2020-04-16] MEDS: cefTRIAXone 1,000 MG in SYRINGE 1 EACH IV SCH (16:25)
[2020-04-16] MEDS: POLYETHYLENE GLYCOL POWDER 17 GM PACK PO SCH (20:30)
[2020-04-16] MEDS: PANTOPRAZOLE 40 MG TABLET PO SCH (20:30)
[2020-04-16] MEDS: MULTIVITAMIN (CENTRUM) TABLET PO SCH (20:30)
[2020-04-17] MEDS: ALBUTEROL/IPRATROPIUM 3 ML NEB RESP TX SCH ×4 (01:00→22:01)
[2020-04-17 05:43] LABS: Basophils % 0.1 % (0.0-0.8); Hematocrit 35.7 VOL% (42.0-52.0); Hemoglobin 11.5 GM/DL (14.0-18.0); Immature Granulocytes % 4.5 %; Immature Granulocytes Absolute 0.42 #; Lymphocytes # 0.1 10*3/uL (1.4-4.0); Lymphocytes % 1.3 % (21.2-54.2); Mean Corpuscular HGB Conc 32.2 GM/DL (32-36); Mean Corpuscular Volume 85.8 FL (87-102); Monocytes % 4.5 % (1.7-12.7); NRBC # 0.02 10*3/uL; Neutrophils % 89.6 % (38.7-73.9); Platelet Count 84 T/CUMM (130-400); Red Blood Count 4.16 MC/CUMM (3.8-5.5); Red Cell Distribution Width 19.4 % (9.3-17.3); White Blood Count 9.3 T/CUMM (4-12)
[2020-04-17] MEDS: HEPARIN 5,000 UNIT/1 ML VIAL SUBCUT SCH ×3 (06:00→22:03)
[2020-04-17] MEDS: ALBUTEROL INHALER 18 GM INH SCH ×4 (06:00→22:01)
[2020-04-17 06:05] LABS: Band Neutrophils 1 % (0-10); Hypochromasia 1+; Lymphocytes 2 % (20-55); Ovalocytes Slight; Platelet Estimate Decreased; Segmented Neutrophils 93 % (50-85); Total Cells Counted 100
[2020-04-17 06:16] LABS: Albumin 2.7 G/DL (3.4-5.0); Calcium 9.9 MG/DL (8.5-10.1); Osmolality,Calculated 310.5 MOS/KG (273-304); Total Protein 7.7 G/DL (6.4-8.3)
[2020-04-17] MEDS: LEVOTHYROXINE 88 MCG TABLET PO SCH (06:57)
[2020-04-17] MEDS: INSULIN LISPRO 100 UNIT/ML SUBCUT SCH ×7 (08:23→22:04)
[2020-04-17] MEDS: carvediloL 25 MG TABLET PO SCH ×2 (09:19→22:02)
[2020-04-17] MEDS: ROSUVASTATIN 20 MG TABLET PO SCH (09:19)
[2020-04-17] MEDS: TAMSULOSIN 0.4 MG CAPSULE PO SCH (09:19)
[2020-04-17] MEDS: hydrALAZINE 25 MG TABLET PO SCH ×3 (09:19→22:03)
[2020-04-17] MEDS: RANOLAZINE 500 MG TABLET PO SCH ×2 (09:20→22:03)
[2020-04-17] MEDS: MAGNESIUM OXIDE 400 MG TABLET PO SCH ×2 (09:20→22:02)
[2020-04-17] MEDS: OMEGA 3 ACID ETHYL ESTERS 1 GM CAPSULE PO SCH ×2 (09:20→22:04)
[2020-04-17] MEDS: POTASSIUM CHLORIDE 20 MEQ TABLET PO SCH ×3 (09:20→22:03)
[2020-04-17] MEDS: INSULIN GLARGINE 100 UNIT/ML SUBCUT SCH (09:20)
[2020-04-17] MEDS: PREGABALIN 100 MG CAPSULE PO SCH ×3 (09:20→22:03)
[2020-04-17] MEDS: methylPREDNISolone SOD SUC 40 MG/1 ML VIAL IV SCH ×2 (09:20→22:01)
[2020-04-17] MEDS: NYSTATIN/TRIAMCINOLONE CREAM 15 GM TUBE TOP SCH ×2 (09:20→22:04)
[2020-04-17] MEDS: sitaGLIPtin 25 MG TABLET PO SCH (09:20)
[2020-04-17] MEDS: MULTIVITAMIN (OCUVITE) TABLET PO SCH (09:20)
[2020-04-17] MEDS: AZITHROMYCIN 250 MG TABLET PO SCH (09:21)
[2020-04-17 12:27] LABS: ABG Base Excess 0.3 MMOL/L (-2.5-2.5); ABG HCO3 24.6 MMOL/L (20-26); ABG Oxygen Saturation 97.1 % (95-100); ABG PCO2 39.4 MM HG (35-48); ABG PH 7.407 (7.35-7.45); ABG PO2 96.7 MM HG (80-95); ABG TCO2 22.1 MMOL/L (23-27)
[2020-04-17] MEDS: cefTRIAXone 1,000 MG in SYRINGE 1 EACH IV SCH (16:30)
[2020-04-17] MEDS: PANTOPRAZOLE 40 MG TABLET PO SCH (22:02)
[2020-04-17] MEDS: MULTIVITAMIN (CENTRUM) TABLET PO SCH (22:03)
[2020-04-17] MEDS: POLYETHYLENE GLYCOL POWDER 17 GM PACK PO SCH (22:03)
[2020-04-18] MEDS: ALBUTEROL INHALER 18 GM INH SCH ×4 (01:27→21:21)
[2020-04-18] MEDS: ALBUTEROL/IPRATROPIUM 3 ML NEB RESP TX SCH ×2 (02:09→06:13)
[2020-04-18] MEDS: HEPARIN 5,000 UNIT/1 ML VIAL SUBCUT SCH ×2 (05:55→17:00)
[2020-04-18] MEDS: LEVOTHYROXINE 88 MCG TABLET PO SCH (06:13)
[2020-04-18 06:24] LABS: Basophils % 0.2 % (0.0-0.8); Hematocrit 36.1 VOL% (42.0-52.0); Hemoglobin 11.6 GM/DL (14.0-18.0); Immature Granulocytes % 4.7 %; Immature Granulocytes Absolute 0.54 #; Lymphocytes # 0.2 10*3/uL (1.4-4.0); Lymphocytes % 1.6 % (21.2-54.2); Mean Corpuscular HGB Conc 32.1 GM/DL (32-36); Monocytes % 4.8 % (1.7-12.7); Neutrophils % 88.7 % (38.7-73.9); Platelet Count 84 T/CUMM (130-400); Red Cell Distribution Width 19.5 % (9.3-17.3); White Blood Count 11.5 T/CUMM (4-12)
[2020-04-18 06:39] LABS: Calcium 9.9 MG/DL (8.5-10.1); Osmolality,Calculated 314.8 MOS/KG (273-304)
[2020-04-18 07:12] LABS: Anisocytosis 1+; Hypochromasia 1+; Lymphocytes 3 % (20-55); Myelocytes 2 %; Ovalocytes Slight; Segmented Neutrophils 92 % (50-85); Total Cells Counted 100
[2020-04-18 07:13] LABS: Platelet Estimate Decreased
[2020-04-18] MEDS: TAMSULOSIN 0.4 MG CAPSULE PO SCH (09:07)
[2020-04-18] MEDS: ROSUVASTATIN 20 MG TABLET PO SCH (09:07)
[2020-04-18] MEDS: INSULIN LISPRO 100 UNIT/ML SUBCUT SCH ×7 (09:07→21:25)
[2020-04-18] MEDS: POTASSIUM CHLORIDE 20 MEQ TABLET PO SCH ×3 (09:08→21:26)
[2020-04-18] MEDS: PREGABALIN 100 MG CAPSULE PO SCH ×3 (09:08→21:24)
[2020-04-18] MEDS: MAGNESIUM OXIDE 400 MG TABLET PO SCH ×2 (09:08→21:24)
[2020-04-18] MEDS: AZITHROMYCIN 250 MG TABLET PO SCH (09:08)
[2020-04-18] MEDS: sitaGLIPtin 25 MG TABLET PO SCH (09:08)
[2020-04-18] MEDS: INSULIN GLARGINE 100 UNIT/ML SUBCUT SCH (09:08)
[2020-04-18] MEDS: MULTIVITAMIN (OCUVITE) TABLET PO SCH (09:08)
[2020-04-18] MEDS: RANOLAZINE 500 MG TABLET PO SCH ×2 (09:08→21:23)
[2020-04-18] MEDS: methylPREDNISolone SOD SUC 40 MG/1 ML VIAL IV SCH ×2 (10:18→21:26)
[2020-04-18] MEDS: hydrALAZINE 25 MG TABLET PO SCH ×3 (12:22→21:25)
[2020-04-18] MEDS: carvediloL 25 MG TABLET PO SCH ×2 (12:39→21:25)
[2020-04-18] MEDS: OMEGA 3 ACID ETHYL ESTERS 1 GM CAPSULE PO SCH ×2 (12:40→21:24)
[2020-04-18] MEDS ORDERED: LORazepam 2 MG/1 ML VIAL IV ONE (14:05)
[2020-04-18] MEDS: NYSTATIN/TRIAMCINOLONE CREAM 15 GM TUBE TOP SCH ×2 (16:35→21:32)
[2020-04-18] MEDS: cefTRIAXone 1,000 MG in SYRINGE 1 EACH IV SCH (18:52)
[2020-04-18] MEDS: POLYETHYLENE GLYCOL POWDER 17 GM PACK PO SCH (21:22)
[2020-04-18] MEDS: MULTIVITAMIN (CENTRUM) TABLET PO SCH (21:24)
[2020-04-18] MEDS: PANTOPRAZOLE 40 MG TABLET PO SCH (21:26)
[2020-04-19 00:01] LABS: Specimen Source THROAT
[2020-04-19] MEDS: HEPARIN 5,000 UNIT/1 ML VIAL SUBCUT SCH ×3 (00:17→16:08)
[2020-04-19] MEDS: ALBUTEROL INHALER 18 GM INH SCH ×4 (00:17→17:58)
[2020-04-19 05:01] LABS: White Blood Count 12.3 T/CUMM (4-12)
[2020-04-19 05:02] LABS: Basophils % 0.3 % (0.0-0.8); Eosinophils % 0.1 % (0.00-10.9); Hematocrit 35.3 VOL% (42.0-52.0); Hemoglobin 11.8 GM/DL (14.0-18.0); Immature Granulocytes % 5.2 %; Immature Granulocytes Absolute 0.64 #; Lymphocytes # 0.2 10*3/uL (1.4-4.0); Lymphocytes % 1.5 % (21.2-54.2); Mean Corpuscular HGB Conc 33.4 GM/DL (32-36); Mean Corpuscular Volume 83.5 FL (87-102); NRBC # 0.02 10*3/uL; Neutrophils % 86.9 % (38.7-73.9); Red Blood Count 4.23 MC/CUMM (3.8-5.5); Red Cell Distribution Width 19.3 % (9.3-17.3)
[2020-04-19 05:04] LABS: Platelet Count 80 T/CUMM (130-400)
[2020-04-19 05:31] LABS: Hypochromasia 1+; Lymphocytes 2 % (20-55); Microcytosis 1+; Nucleated Red Blood Cells 1 (0-5); Platelet Estimate Decreased; Segmented Neutrophils 92 % (50-85); Total Cells Counted 100
[2020-04-19] MEDS: LEVOTHYROXINE 88 MCG TABLET PO SCH (06:06)
[2020-04-19] MEDS: INSULIN LISPRO 100 UNIT/ML SUBCUT SCH ×4 (07:34→21:12)
[2020-04-19 07:35] LABS: Albumin 2.6 G/DL (3.4-5.0); Bilirubin,Total 0.5 MG/DL (0.2-1.0); Calcium 9.3 MG/DL (8.5-10.1); Osmolality,Calculated 303.7 MOS/KG (273-304); Total Protein 6.8 G/DL (6.4-8.3)
[2020-04-19 07:55] LABS: Allen Test Positive; Pt O2 Delivery Device Other
[2020-04-19 07:56] LABS: ABG Base Excess -0.1 MMOL/L (-2.5-2.5); ABG HCO3 24.4 MMOL/L (20-26); ABG Oxygen Saturation 97.9 % (95-100); ABG PCO2 37.7 MM HG (35-48); ABG PH 7.415 (7.35-7.45); ABG TCO2 21.4 MMOL/L (23-27)
[2020-04-19] MEDS: MULTIVITAMIN (OCUVITE) TABLET PO SCH (08:50)
[2020-04-19] MEDS: TAMSULOSIN 0.4 MG CAPSULE PO SCH (08:50)
[2020-04-19] MEDS: sitaGLIPtin 25 MG TABLET PO SCH (08:50)
[2020-04-19] MEDS: carvediloL 25 MG TABLET PO SCH ×2 (08:50→21:12)
[2020-04-19] MEDS: RANOLAZINE 500 MG TABLET PO SCH ×2 (08:51→21:13)
[2020-04-19] MEDS: OMEGA 3 ACID ETHYL ESTERS 1 GM CAPSULE PO SCH ×2 (08:51→21:13)
[2020-04-19] MEDS: hydrALAZINE 25 MG TABLET PO SCH ×3 (08:51→21:12)
[2020-04-19] MEDS: PREGABALIN 100 MG CAPSULE PO SCH ×3 (08:51→21:13)
[2020-04-19] MEDS: POTASSIUM CHLORIDE 20 MEQ TABLET PO SCH ×3 (08:51→21:12)
[2020-04-19] MEDS: cefTRIAXone 1,000 MG in SYRINGE 1 EACH IV SCH (08:52)
[2020-04-19] MEDS: INSULIN GLARGINE 100 UNIT/ML SUBCUT SCH (08:52)
[2020-04-19] MEDS: methylPREDNISolone SOD SUC 40 MG/1 ML VIAL IV SCH ×2 (08:52→21:13)
[2020-04-19] MEDS: MAGNESIUM OXIDE 400 MG TABLET PO SCH ×2 (08:52→21:13)
[2020-04-19] MEDS: ROSUVASTATIN 20 MG TABLET PO SCH (08:52)
[2020-04-19] MEDS: NYSTATIN/TRIAMCINOLONE CREAM 15 GM TUBE TOP SCH ×2 (08:53→21:13)
[2020-04-19] MEDS: MULTIVITAMIN (CENTRUM) TABLET PO SCH (21:12)
[2020-04-19] MEDS: POLYETHYLENE GLYCOL POWDER 17 GM PACK PO SCH (21:13)
[2020-04-19] MEDS: PANTOPRAZOLE 40 MG TABLET PO SCH (21:13)
[2020-04-19] MEDS: guaiFENesin/DM ER 600-30 MG TABLET PO PRN (21:14)
[2020-04-20] MEDS: HEPARIN 5,000 UNIT/1 ML VIAL SUBCUT SCH ×3 (00:15→17:42)
[2020-04-20] MEDS: ALBUTEROL INHALER 18 GM INH SCH ×4 (00:15→21:00)
[2020-04-20 05:20] LABS: ABG HCO3 22.2 MMOL/L (20-26); ABG Oxygen Saturation 94.7 % (95-100); ABG PCO2 36.1 MM HG (35-48); ABG PH 7.407 (7.35-7.45); ABG PO2 78.2 MM HG (80-95); ABG TCO2 23.3 MMOL/L (23-27); Allen Test Positive; Pt O2 Delivery Device Other
[2020-04-20] MEDS: LEVOTHYROXINE 88 MCG TABLET PO SCH (05:35)
[2020-04-20 06:32] LABS: Basophils # 0.1 10*3/uL (0.0-0.2); Basophils % 0.4 % (0.0-0.8); Hematocrit 35.9 VOL% (42.0-52.0); Hemoglobin 11.7 GM/DL (14.0-18.0); Immature Granulocytes % 7.4 %; Lymphocytes # 0.2 10*3/uL (1.4-4.0); Lymphocytes % 1.8 % (21.2-54.2); Mean Corpuscular HGB Conc 32.6 GM/DL (32-36); Mean Corpuscular Volume 85.7 FL (87-102); Monocytes % 5.4 % (1.7-12.7); Red Blood Count 4.19 MC/CUMM (3.8-5.5); Red Cell Distribution Width 19.4 % (9.3-17.3); White Blood Count 12.2 T/CUMM (4-12)
[2020-04-20 06:35] LABS: Platelet Count 75 T/CUMM (130-400)
[2020-04-20 06:52] LABS: Albumin 2.4 G/DL (3.4-5.0); Bilirubin,Total 0.5 MG/DL (0.2-1.0); Ferritin 1691.5 ng/ml (26-388); Total Protein 7.5 G/DL (6.4-8.3)
[2020-04-20 07:23] LABS: Band Neutrophils 12 % (0-10); Lymphocytes 2 % (20-55); Platelet Estimate Decreased; Segmented Neutrophils 78 % (50-85); Total Cells Counted 100
[2020-04-20 07:24] LABS: Anisocytosis 1+; Burr Cells Few; Poikilocytosis Slight
[2020-04-20] MEDS: INSULIN LISPRO 100 UNIT/ML SUBCUT SCH ×4 (08:19→22:02)
[2020-04-20] MEDS: INSULIN GLARGINE 100 UNIT/ML SUBCUT SCH (08:20)
[2020-04-20] MEDS: cefTRIAXone 1,000 MG in SYRINGE 1 EACH IV SCH (08:21)
[2020-04-20] MEDS: methylPREDNISolone SOD SUC 40 MG/1 ML VIAL IV SCH ×2 (08:21→21:04)
[2020-04-20] MEDS: MAGNESIUM OXIDE 400 MG TABLET PO SCH ×2 (08:22→21:03)
[2020-04-20] MEDS: RANOLAZINE 500 MG TABLET PO SCH ×2 (08:22→21:03)
[2020-04-20] MEDS: ROSUVASTATIN 20 MG TABLET PO SCH (08:23)
[2020-04-20] MEDS: PREGABALIN 100 MG CAPSULE PO SCH ×3 (08:23→21:03)
[2020-04-20] MEDS: sitaGLIPtin 25 MG TABLET PO SCH (08:23)
[2020-04-20] MEDS: TAMSULOSIN 0.4 MG CAPSULE PO SCH (08:23)
[2020-04-20] MEDS: hydrALAZINE 25 MG TABLET PO SCH ×3 (08:24→21:02)
[2020-04-20] MEDS: MULTIVITAMIN (OCUVITE) TABLET PO SCH (08:24)
[2020-04-20] MEDS: carvediloL 25 MG TABLET PO SCH ×2 (08:24→21:02)
[2020-04-20] MEDS: NYSTATIN/TRIAMCINOLONE CREAM 15 GM TUBE TOP SCH ×2 (08:37→21:04)
[2020-04-20] MEDS: POTASSIUM CHLORIDE 20 MEQ TABLET PO SCH ×2 (08:38→17:41)
[2020-04-20] MEDS: OMEGA 3 ACID ETHYL ESTERS 1 GM CAPSULE PO SCH ×2 (09:31→21:02)
[2020-04-20] MEDS: POLYETHYLENE GLYCOL POWDER 17 GM PACK PO SCH (21:00)
[2020-04-20] MEDS: PANTOPRAZOLE 40 MG TABLET PO SCH (21:02)
[2020-04-20] MEDS: MULTIVITAMIN (CENTRUM) TABLET PO SCH (21:03)
[2020-04-21] MEDS: ALBUTEROL INHALER 18 GM INH SCH ×4 (01:35→19:15)
[2020-04-21] MEDS: HEPARIN 5,000 UNIT/1 ML VIAL SUBCUT SCH ×3 (02:41→16:59)
[2020-04-21 04:09] LABS: ABG Base Excess 0.9 MMOL/L (-2.5-2.5); ABG HCO3 25.2 MMOL/L (20-26); ABG Oxygen Saturation 98.8 % (95-100); ABG PCO2 38.8 MM HG (35-48); ABG PH 7.421 (7.35-7.45); ABG TCO2 22.5 MMOL/L (23-27); Allen Test Positive; Pt O2 Delivery Device Other
[2020-04-21 06:40] LABS: Basophils % 0.3 % (0.0-0.8); Hematocrit 34.4 VOL% (42.0-52.0); Hemoglobin 11.2 GM/DL (14.0-18.0); Immature Granulocytes % 7.2 %; Immature Granulocytes Absolute 0.85 #; Lymphocytes # 0.2 10*3/uL (1.4-4.0); Lymphocytes % 1.4 % (21.2-54.2); Mean Corpuscular HGB Conc 32.6 GM/DL (32-36); Mean Corpuscular Volume 85.4 FL (87-102); Neutrophils % 87.1 % (38.7-73.9); Red Blood Count 4.03 MC/CUMM (3.8-5.5); Red Cell Distribution Width 19.2 % (9.3-17.3); White Blood Count 11.8 T/CUMM (4-12)
[2020-04-21] MEDS: LEVOTHYROXINE 88 MCG TABLET PO SCH (06:40)
[2020-04-21 06:42] LABS: Platelet Count 72 T/CUMM (130-400)
[2020-04-21 07:09] LABS: Calcium 9.5 MG/DL (8.5-10.1); Osmolality,Calculated 301.1 MOS/KG (273-304)
[2020-04-21 07:23] LABS: Albumin 2.2 G/DL (3.4-5.0); Bilirubin,Total 0.5 MG/DL (0.2-1.0); Calcium 9.4 MG/DL (8.5-10.1); Ferritin 1429.8 ng/ml (26-388); Osmolality,Calculated 299.2 MOS/KG (273-304); Total Protein 7.1 G/DL (6.4-8.3)
[2020-04-21 07:44] LABS: Band Neutrophils 1 % (0-10); Hypochromasia 1+; Lymphocytes 4 % (20-55); Microcytosis Slight; Ovalocytes Slight; Platelet Estimate Decreased; Segmented Neutrophils 91 % (50-85); Total Cells Counted 100
[2020-04-21] MEDS: methylPREDNISolone SOD SUC 40 MG/1 ML VIAL IV SCH (08:33)
[2020-04-21] MEDS: INSULIN GLARGINE 100 UNIT/ML SUBCUT SCH ×2 (08:33→21:23)
[2020-04-21] MEDS: PREGABALIN 100 MG CAPSULE PO SCH ×3 (08:34→21:24)
[2020-04-21] MEDS: OMEGA 3 ACID ETHYL ESTERS 1 GM CAPSULE PO SCH ×2 (08:34→21:24)
[2020-04-21] MEDS: hydrALAZINE 25 MG TABLET PO SCH ×3 (08:34→21:24)
[2020-04-21] MEDS: ROSUVASTATIN 20 MG TABLET PO SCH (08:34)
[2020-04-21] MEDS: RANOLAZINE 500 MG TABLET PO SCH ×2 (08:34→21:25)
[2020-04-21] MEDS: carvediloL 25 MG TABLET PO SCH ×2 (08:35→21:24)
[2020-04-21] MEDS: sitaGLIPtin 25 MG TABLET PO SCH (08:35)
[2020-04-21] MEDS: TAMSULOSIN 0.4 MG CAPSULE PO SCH (08:35)
[2020-04-21] MEDS: MAGNESIUM OXIDE 400 MG TABLET PO SCH ×2 (08:35→21:25)
[2020-04-21] MEDS: MULTIVITAMIN (OCUVITE) TABLET PO SCH (08:35)
[2020-04-21] MEDS: guaiFENesin/DM ER 600-30 MG TABLET PO PRN (08:35)
[2020-04-21] MEDS: NYSTATIN/TRIAMCINOLONE CREAM 15 GM TUBE TOP SCH ×2 (08:41→21:26)
[2020-04-21] MEDS: INSULIN LISPRO 100 UNIT/ML SUBCUT SCH ×6 (08:41→21:22)
[2020-04-21] MEDS ORDERED: INSULIN REGULAR 100 UNIT/ML SUBCUT ONE (18:12)
[2020-04-21] MEDS: MULTIVITAMIN (CENTRUM) TABLET PO SCH (21:24)
[2020-04-21] MEDS: POLYETHYLENE GLYCOL POWDER 17 GM PACK PO SCH (21:24)
[2020-04-21] MEDS: PANTOPRAZOLE 40 MG TABLET PO SCH (21:25)
[2020-04-22] MEDS: HEPARIN 5,000 UNIT/1 ML VIAL SUBCUT SCH ×3 (01:05→17:10)
[2020-04-22] MEDS: ALBUTEROL INHALER 18 GM INH SCH ×4 (01:05→19:32)
[2020-04-22 05:30] LABS: ABG Base Excess -0.7 MMOL/L (-2.5-2.5); ABG HCO3 23.9 MMOL/L (20-26); ABG Oxygen Saturation 97.3 % (95-100); ABG PCO2 42.4 MM HG (35-48); ABG PH 7.372 (7.35-7.45); ABG TCO2 22.1 MMOL/L (23-27)
[2020-04-22] MEDS: LEVOTHYROXINE 88 MCG TABLET PO SCH (06:35)
[2020-04-22 06:56] LABS: Basophils % 0.3 % (0.0-0.8); Eosinophils # 0.1 10*3/uL (0.0-0.87); Eosinophils % 0.5 % (0.00-10.9); Hematocrit 32.9 VOL% (42.0-52.0); Immature Granulocytes % 5.7 %; Immature Granulocytes Absolute 0.77 #; Lymphocytes # 0.3 10*3/uL (1.4-4.0); Lymphocytes % 1.9 % (21.2-54.2); Mean Corpuscular HGB Conc 33.4 GM/DL (32-36); Mean Corpuscular Volume 84.1 FL (87-102); Monocytes % 5.8 % (1.7-12.7); Neutrophils % 85.8 % (38.7-73.9); Red Blood Count 3.91 MC/CUMM (3.8-5.5); Red Cell Distribution Width 18.6 % (9.3-17.3); White Blood Count 13.5 T/CUMM (4-12)
[2020-04-22 07:00] LABS: Platelet Count 67 T/CUMM (130-400)
[2020-04-22 07:22] LABS: Lymphocytes 3 % (20-55); Ovalocytes Slight; Platelet Estimate Decreased; Segmented Neutrophils 91 % (50-85); Total Cells Counted 100
[2020-04-22 07:23] LABS: Microcytosis Slight
[2020-04-22 07:34] LABS: Albumin 2.2 G/DL (3.4-5.0); Bilirubin,Total 0.7 MG/DL (0.2-1.0); Calcium 9.9 MG/DL (8.5-10.1); Ferritin 1179.1 ng/ml (26-388); Osmolality,Calculated 309.4 MOS/KG (273-304); Total Protein 6.7 G/DL (6.4-8.3)
[2020-04-22 07:50] LABS: Calcium 9.9 MG/DL (8.5-10.1); Osmolality,Calculated 311.2 MOS/KG (273-304)
[2020-04-22] MEDS: INSULIN GLARGINE 100 UNIT/ML SUBCUT SCH ×2 (08:42→21:35)
[2020-04-22] MEDS: methylPREDNISolone SOD SUC 40 MG/1 ML VIAL IV SCH (08:43)
[2020-04-22] MEDS: guaiFENesin/DM ER 600-30 MG TABLET PO PRN (08:43)
[2020-04-22] MEDS: TAMSULOSIN 0.4 MG CAPSULE PO SCH (08:44)
[2020-04-22] MEDS: hydrALAZINE 25 MG TABLET PO SCH ×3 (08:44→21:34)
[2020-04-22] MEDS: OMEGA 3 ACID ETHYL ESTERS 1 GM CAPSULE PO SCH ×2 (08:44→21:36)
[2020-04-22] MEDS: RANOLAZINE 500 MG TABLET PO SCH ×2 (08:44→21:33)
[2020-04-22] MEDS: ROSUVASTATIN 20 MG TABLET PO SCH (08:44)
[2020-04-22] MEDS: MULTIVITAMIN (OCUVITE) TABLET PO SCH (08:44)
[2020-04-22] MEDS: MAGNESIUM OXIDE 400 MG TABLET PO SCH ×2 (08:44→21:34)
[2020-04-22] MEDS: INSULIN LISPRO 100 UNIT/ML SUBCUT SCH ×5 (08:45→21:36)
[2020-04-22] MEDS: PREGABALIN 100 MG CAPSULE PO SCH ×3 (08:45→21:33)
[2020-04-22] MEDS: carvediloL 25 MG TABLET PO SCH ×2 (08:45→21:33)
[2020-04-22] MEDS: sitaGLIPtin 25 MG TABLET PO SCH (08:45)
[2020-04-22] MEDS: NYSTATIN/TRIAMCINOLONE CREAM 15 GM TUBE TOP SCH ×2 (12:04→21:36)
[2020-04-22] MEDS: PANTOPRAZOLE 40 MG TABLET PO SCH (21:33)
[2020-04-22] MEDS: POLYETHYLENE GLYCOL POWDER 17 GM PACK PO SCH (21:33)
[2020-04-22] MEDS: MULTIVITAMIN (CENTRUM) TABLET PO SCH (21:34)
[2020-04-23] MEDS: ALBUTEROL INHALER 18 GM INH SCH ×4 (01:12→21:22)
[2020-04-23] MEDS: HEPARIN 5,000 UNIT/1 ML VIAL SUBCUT SCH ×3 (02:13→16:15)
[2020-04-23 03:55] LABS: ABG Base Excess -2.2 MMOL/L (-2.5-2.5); ABG HCO3 22.6 MMOL/L (20-26); ABG PCO2 40.1 MM HG (35-48); ABG PH 7.366 (7.35-7.45); ABG TCO2 20.8 MMOL/L (23-27); Allen Test Positive; Pt O2 Delivery Device Other
[2020-04-23] MEDS: LEVOTHYROXINE 88 MCG TABLET PO SCH (06:01)
[2020-04-23 06:29] LABS: Basophils % 0.3 % (0.0-0.8); Eosinophils # 0.1 10*3/uL (0.0-0.87); Eosinophils % 0.9 % (0.00-10.9); Hematocrit 32.7 VOL% (42.0-52.0); Hemoglobin 10.9 GM/DL (14.0-18.0); Immature Granulocytes % 6.1 %; Immature Granulocytes Absolute 0.79 #; Lymphocytes # 0.3 10*3/uL (1.4-4.0); Lymphocytes % 1.9 % (21.2-54.2); Mean Corpuscular HGB Conc 33.3 GM/DL (32-36); Mean Corpuscular Volume 84.1 FL (87-102); Neutrophils % 86.8 % (38.7-73.9); Red Blood Count 3.89 MC/CUMM (3.8-5.5); Red Cell Distribution Width 18.6 % (9.3-17.3); White Blood Count 12.9 T/CUMM (4-12)
[2020-04-23 06:32] LABS: Platelet Count 66 T/CUMM (130-400)
[2020-04-23 06:36] LABS: Calcium 9.6 MG/DL (8.5-10.1); Osmolality,Calculated 308.4 MOS/KG (273-304)
[2020-04-23 06:42] LABS: Albumin 2.1 G/DL (3.4-5.0); Calcium 10.3 MG/DL (8.5-10.1); Ferritin 1006.1 ng/ml (26-388); Osmolality,Calculated 309.4 MOS/KG (273-304); Total Protein 6.5 G/DL (6.4-8.3)
[2020-04-23 09:23] LABS: Band Neutrophils 1 % (0-10); Lymphocytes 1 % (20-55); Platelet Estimate Decreased; Segmented Neutrophils 91 % (50-85); Total Cells Counted 100
[2020-04-23 09:24] LABS: Burr Cells Slight; Microcytosis Slight
[2020-04-23] MEDS: methylPREDNISolone SOD SUC 40 MG/1 ML VIAL IV SCH (09:48)
[2020-04-23] MEDS: MULTIVITAMIN (OCUVITE) TABLET PO SCH (09:50)
[2020-04-23] MEDS: sitaGLIPtin 25 MG TABLET PO SCH (09:50)
[2020-04-23] MEDS: PREGABALIN 100 MG CAPSULE PO SCH ×3 (09:50→21:28)
[2020-04-23] MEDS: RANOLAZINE 500 MG TABLET PO SCH ×2 (09:50→21:27)
[2020-04-23] MEDS: NYSTATIN/TRIAMCINOLONE CREAM 15 GM TUBE TOP SCH ×2 (09:50→21:38)
[2020-04-23] MEDS: INSULIN GLARGINE 100 UNIT/ML SUBCUT SCH ×2 (09:50→21:29)
[2020-04-23] MEDS: TAMSULOSIN 0.4 MG CAPSULE PO SCH (09:50)
[2020-04-23] MEDS: INSULIN LISPRO 100 UNIT/ML SUBCUT SCH ×5 (09:50→21:35)
[2020-04-23] MEDS: OMEGA 3 ACID ETHYL ESTERS 1 GM CAPSULE PO SCH ×2 (09:50→21:28)
[2020-04-23] MEDS: ROSUVASTATIN 20 MG TABLET PO SCH (09:50)
[2020-04-23] MEDS: carvediloL 25 MG TABLET PO SCH ×2 (10:32→21:28)
[2020-04-23] MEDS: hydrALAZINE 25 MG TABLET PO SCH ×3 (10:32→21:26)
[2020-04-23] MEDS: MAGNESIUM OXIDE 400 MG TABLET PO SCH ×2 (10:36→21:26)
[2020-04-23] MEDS: MULTIVITAMIN (CENTRUM) TABLET PO SCH (21:26)
[2020-04-23] MEDS: POLYETHYLENE GLYCOL POWDER 17 GM PACK PO SCH (21:27)
[2020-04-23] MEDS: PANTOPRAZOLE 40 MG TABLET PO SCH (21:28)
[2020-04-24] MEDS: HEPARIN 5,000 UNIT/1 ML VIAL SUBCUT SCH ×2 (00:50→10:42)
[2020-04-24] MEDS: ALBUTEROL INHALER 18 GM INH SCH ×3 (00:54→15:16)
[2020-04-24 06:04] LABS: Albumin 1.9 G/DL (3.4-5.0); Bilirubin,Total 0.4 MG/DL (0.2-1.0); Calcium 9.1 MG/DL (8.5-10.1); Ferritin 900.4 ng/ml (26-388); Osmolality,Calculated 295.7 MOS/KG (273-304); Total Protein 6.1 G/DL (6.4-8.3)
[2020-04-24] MEDS: LEVOTHYROXINE 88 MCG TABLET PO SCH (06:25)
[2020-04-24] MEDS: INSULIN GLARGINE 100 UNIT/ML SUBCUT SCH (10:36)
[2020-04-24] MEDS: INSULIN LISPRO 100 UNIT/ML SUBCUT SCH ×6 (10:37→12:09)
[2020-04-24] MEDS: ROSUVASTATIN 20 MG TABLET PO SCH (10:40)
[2020-04-24] MEDS: hydrALAZINE 25 MG TABLET PO SCH ×2 (10:40→15:21)
[2020-04-24] MEDS: MAGNESIUM OXIDE 400 MG TABLET PO SCH (10:40)
[2020-04-24] MEDS: PREGABALIN 100 MG CAPSULE PO SCH ×2 (10:40→15:21)
[2020-04-24] MEDS: TAMSULOSIN 0.4 MG CAPSULE PO SCH (10:40)
[2020-04-24] MEDS: sitaGLIPtin 25 MG TABLET PO SCH (10:41)
[2020-04-24] MEDS: carvediloL 25 MG TABLET PO SCH (10:41)
[2020-04-24] MEDS: RANOLAZINE 500 MG TABLET PO SCH (10:41)
[2020-04-24] MEDS: MULTIVITAMIN (OCUVITE) TABLET PO SCH (10:41)
[2020-04-24] MEDS: OMEGA 3 ACID ETHYL ESTERS 1 GM CAPSULE PO SCH (10:42)
[2020-04-24] MEDS: NYSTATIN/TRIAMCINOLONE CREAM 15 GM TUBE TOP SCH (10:42)
[2020-04-24 11:48] VITALS: BP 124/55
== END 2020-04-24 16:36 | DRG 871 ==
LOC: EDUNIT# → EDBD → N.ED 11:50 → N.EDINP 14:38 → N.CC 15:58 → SUATTDRO 17:00 → N.CC 17:00 → N.2E 04-12 10:10 → N.CC 04-15 12:40 → N.2E 04-17 17:40
PROVIDERS: ADMIT Family Medicine; ATTEND Family Medicine

== ENCOUNTER 2020-06-07 01:13 | Inpatient (IN) ==
[2020-06-07 01:58] LABS: Basophils % 0.2 % (0.0-0.8); Eosinophils # 0.1 10*3/uL (0.0-0.87); Eosinophils % 0.7 % (0.00-10.9); Hematocrit 26.5 VOL% (42.0-52.0); Hemoglobin 8.1 GM/DL (14.0-18.0); Immature Granulocytes % 1.1 %; Immature Granulocytes Absolute 0.09 #; Lymphocytes # 0.4 10*3/uL (1.4-4.0); Lymphocytes % 5.3 % (21.2-54.2); Mean Corpuscular HGB Conc 30.6 GM/DL (32-36); Mean Corpuscular Volume 92.7 FL (87-102); Mean Platelet Volume 11.8 FL (9.6-12.0); Monocytes % 4.6 % (1.7-12.7); Neutrophils % 88.1 % (38.7-73.9); Platelet Count 135 T/CUMM (130-400); Red Blood Count 2.86 MC/CUMM (3.8-5.5); Red Cell Distribution Width 15.8 % (9.3-17.3); White Blood Count 8.3 T/CUMM (4-12)
[2020-06-07] MEDS ORDERED: FUROSEMIDE 100 MG/10 ML VIAL IV STA (01:58)
[2020-06-07] MEDS ORDERED: ONDANSETRON 4 MG/2 ML VIAL IV STA (01:58)
[2020-06-07] MEDS ORDERED: PIPERACILLIN/TAZOBACTAM 3,375 MG in SODIUM CHLORIDE 0.9% 100 ML IV STA (01:58)
[2020-06-07 02:08] LABS: INR 1.1; PT Patient Result 12.2 SECS (9.8-11.9); Partial Thromboplastin Time 27.7 SECS (23.9-33.8)
[2020-06-07 02:09] LABS: Apearance,Urine CLOUDY (Clear); Bilirubin,Urine Negative (Negative); Blood, Urine Negative (Negative); Glucose,Urine (UA) Negative (Negative); Ketones,Urine Negative (Negative); Nitrite,Urine Negative (Negative); Protein,Urine Negative; RBC,Urine 4 /HPF (0-4); Urine Color Yellow (Yellow); Urine Specific Gravity 1.008 (1.001-1.035); Urine Urobilinogen < 2.0 EU/DL (0.2-1.0); WBC,Urine 730 /HPF (0-6)
[2020-06-07 02:16] LABS: Albumin 2.5 G/DL (3.4-5.0); Bilirubin,Total 0.7 MG/DL (0.2-1.0); Calcium 11.4 MG/DL (8.5-10.1); Osmolality,Calculated 288.5 MOS/KG (273-304); Total Protein 7.8 G/DL (6.4-8.3)
[2020-06-07 02:26] LABS: Troponin I 0.032 NG/ML (0.00-0.045)
[2020-06-07 02:38] LABS: ABG Base Excess -0.7 MMOL/L (-2.5-2.5); ABG HCO3 24.5 MMOL/L (20-26); ABG Oxygen Saturation 99.3 % (95-100); ABG PCO2 43.2 MM HG (35-48); ABG PH 7.372 (7.35-7.45); ABG PO2 288.3 MM HG (80-95); ABG TCO2 25.9 MMOL/L (23-27); Allen Test Positive
[2020-06-07] MEDS ORDERED: ALBUTEROL 2.5 MG/3 ML NEB RESP TX PRN (05:39)
[2020-06-07] MEDS: SODIUM CHLORIDE 0.9% 1,000 ML IV SCH ×2 (06:20→18:10)
[2020-06-07] MEDS: ENOXAPARIN 30 MG/0.3 ML SYRINGE SUBCUT SCH (06:20)
[2020-06-07] MEDS ORDERED: NOREPINEPHRINE 8 MG in SODIUM CHLORIDE 0.9% 242 ML IV PRN (06:46)
[2020-06-07] MEDS ORDERED: NOREPINEPHRINE 4 MG/4 ML VIAL IV ONE (06:50)
[2020-06-07] MEDS ORDERED: LACTULOSE 20 GM/30 ML UDCUP PO PRN (07:51)
[2020-06-07] MEDS: AMPICILLIN INJ 1,000 MG in SODIUM CHLORIDE 0.9% 100 ML IV SCH ×2 (08:20→22:34)
[2020-06-07] MEDS: LEVOTHYROXINE 88 MCG TABLET PO SCH (08:24)
[2020-06-07] MEDS: carvediloL 12.5 MG TABLET PO SCH ×2 (08:59→22:30)
[2020-06-07] MEDS: ROSUVASTATIN 20 MG TABLET PO SCH (08:59)
[2020-06-07] MEDS: TAMSULOSIN 0.4 MG CAPSULE PO SCH (08:59)
[2020-06-07] MEDS: levETIRAcetam 250 MG TABLET PO SCH (09:00)
[2020-06-07] MEDS: PANTOPRAZOLE 40 MG VIAL IV SCH (09:00)
[2020-06-07] MEDS: POLYETHYLENE GLYCOL POWDER 17 GM PACK PO SCH (22:30)
[2020-06-08 03:25] LABS: ABG Base Excess 0.5 MMOL/L (-2.5-2.5); ABG HCO3 26.3 MMOL/L (20-26); ABG PCO2 49.6 MM HG (35-48); ABG PH 7.343 (7.35-7.45); ABG PO2 100.5 MM HG (80-95); ABG TCO2 27.9 MMOL/L (23-27); Allen Test Positive
[2020-06-08] MEDS: SODIUM CHLORIDE 0.9% 1,000 ML IV SCH ×2 (04:53→16:52)
[2020-06-08 06:19] LABS: Basophils % 0.4 % (0.0-0.8); Eosinophils # 0.2 10*3/uL (0.0-0.87); Eosinophils % 4.7 % (0.00-10.9); Hemoglobin 7.1 GM/DL (14.0-18.0); Immature Granulocytes Absolute 0.05 #; Mean Corpuscular HGB Conc 30.9 GM/DL (32-36); Mean Corpuscular Volume 92.4 FL (87-102); Mean Platelet Volume 11.9 FL (9.6-12.0); Monocytes % 15.3 % (1.7-12.7); Neutrophils % 58.6 % (38.7-73.9); Platelet Count 105 T/CUMM (130-400); Red Blood Count 2.49 MC/CUMM (3.8-5.5); White Blood Count 4.9 T/CUMM (4-12)
[2020-06-08 06:41] LABS: Albumin 2.2 G/DL (3.4-5.0); Bilirubin,Total 0.9 MG/DL (0.2-1.0); Calcium 10.4 MG/DL (8.5-10.1); Osmolality,Calculated 299.4 MOS/KG (273-304); Total Protein 6.7 G/DL (6.4-8.3)
[2020-06-08] MEDS: AMPICILLIN INJ 1,000 MG in SODIUM CHLORIDE 0.9% 100 ML IV SCH ×3 (07:11→23:20)
[2020-06-08] MEDS: ENOXAPARIN 30 MG/0.3 ML SYRINGE SUBCUT SCH (07:12)
[2020-06-08] MEDS: LEVOTHYROXINE 88 MCG TABLET PO SCH (07:36)
[2020-06-08] MEDS: TAMSULOSIN 0.4 MG CAPSULE PO SCH (09:45)
[2020-06-08] MEDS: PANTOPRAZOLE 40 MG VIAL IV SCH (09:45)
[2020-06-08] MEDS: ROSUVASTATIN 20 MG TABLET PO SCH (09:45)
[2020-06-08] MEDS: carvediloL 12.5 MG TABLET PO SCH ×2 (09:45→20:27)
[2020-06-08] MEDS: levETIRAcetam 250 MG TABLET PO SCH (09:55)
[2020-06-08] MEDS ORDERED: VANCOMYCIN INJ 1,000 MG in SODIUM CHLORIDE 0.9% 250 ML IV SCH (10:30)
[2020-06-08] MEDS ORDERED: POTASSIUM CHLORIDE 20 MEQ TABLET PO ONE (10:52)
[2020-06-08] MEDS ORDERED: VANCOMYCIN INJ 1,250 MG in SODIUM CHLORIDE 0.9% 250 ML IV ONE (11:30)
[2020-06-08] MEDS: POLYETHYLENE GLYCOL POWDER 17 GM PACK PO SCH (20:27)
[2020-06-09] MEDS: SODIUM CHLORIDE 0.9% 1,000 ML IV SCH ×2 (02:19→13:52)
[2020-06-09] MEDS: ENOXAPARIN 30 MG/0.3 ML SYRINGE SUBCUT SCH (06:40)
[2020-06-09] MEDS: AMPICILLIN INJ 1,000 MG in SODIUM CHLORIDE 0.9% 100 ML IV SCH ×3 (07:15→21:19)
[2020-06-09] MEDS ORDERED: FUROSEMIDE 40 MG/4 ML VIAL IV ONE (07:45)
[2020-06-09] MEDS ORDERED: SODIUM CHLORIDE 0.9% 1,000 ML IV PRN (07:45)
[2020-06-09 08:36] LABS: Basophils % 0.5 % (0.0-0.8); Eosinophils # 0.3 10*3/uL (0.0-0.87); Eosinophils % 6.2 % (0.00-10.9); Hematocrit 22.7 VOL% (42.0-52.0); Hemoglobin 6.8 GM/DL (14.0-18.0); Immature Granulocytes % 1.6 %; Immature Granulocytes Absolute 0.07 #; Lymphocytes % 23.8 % (21.2-54.2); Mean Corpuscular Volume 93.4 FL (87-102); Mean Platelet Volume 11.9 FL (9.6-12.0); Monocytes % 13.4 % (1.7-12.7); Neutrophils % 54.5 % (38.7-73.9); Platelet Count 102 T/CUMM (130-400); Red Blood Count 2.43 MC/CUMM (3.8-5.5); Red Cell Distribution Width 15.9 % (9.3-17.3); White Blood Count 4.3 T/CUMM (4-12)
[2020-06-09 09:06] LABS: Osmolality,Calculated 297.4 MOS/KG (273-304)
[2020-06-09] MEDS: carvediloL 12.5 MG TABLET PO SCH ×2 (10:09→21:19)
[2020-06-09] MEDS: PANTOPRAZOLE 40 MG VIAL IV SCH (10:09)
[2020-06-09] MEDS: levETIRAcetam 250 MG TABLET PO SCH (10:09)
[2020-06-09] MEDS: LEVOTHYROXINE 88 MCG TABLET PO SCH (10:09)
[2020-06-09] MEDS: TAMSULOSIN 0.4 MG CAPSULE PO SCH (10:09)
[2020-06-09] MEDS: ROSUVASTATIN 20 MG TABLET PO SCH (10:09)
[2020-06-09] MEDS ORDERED: POTASSIUM CHLORIDE 20 MEQ TABLET PO ONE (10:10)
[2020-06-09 10:31] LABS: % Iron Saturation 32.3 % (18-50); Ferritin 399.2 ng/ml (26-388)
[2020-06-09 10:38] LABS: Basophils % 0.5 % (0.0-0.8); Eosinophils # 0.3 10*3/uL (0.0-0.87); Eosinophils % 6.3 % (0.00-10.9); Hemoglobin 6.8 GM/DL (14.0-18.0); Immature Granulocytes % 1.2 %; Immature Granulocytes Absolute 0.05 #; Lymphocytes % 25.2 % (21.2-54.2); Mean Corpuscular HGB Conc 30.9 GM/DL (32-36); Mean Corpuscular Volume 92.8 FL (87-102); Mean Platelet Volume 11.7 FL (9.6-12.0); Monocytes % 11.9 % (1.7-12.7); Neutrophils % 54.9 % (38.7-73.9); Platelet Count 97 T/CUMM (130-400); Red Blood Count 2.37 MC/CUMM (3.8-5.5); White Blood Count 4.1 T/CUMM (4-12)
[2020-06-09 11:21] LABS: Folate 22.2 NG/ML (5.4-24.0); Vitamin B12 902 PG/ML (211-911)
[2020-06-09 11:50] LABS: Sedimentation Rate-Westergren 135 MM/HR (0-20)
[2020-06-09] MEDS: POLYETHYLENE GLYCOL POWDER 17 GM PACK PO SCH (21:19)
[2020-06-09] MEDS: VANCOMYCIN INJ 1,250 MG in SODIUM CHLORIDE 0.9% 250 ML IV SCH (23:28)
[2020-06-10] MEDS: AMPICILLIN INJ 1,000 MG in SODIUM CHLORIDE 0.9% 100 ML IV SCH ×3 (05:58→21:18)
[2020-06-10] MEDS: ENOXAPARIN 30 MG/0.3 ML SYRINGE SUBCUT SCH (05:58)
[2020-06-10] MEDS: LEVOTHYROXINE 88 MCG TABLET PO SCH (06:01)
[2020-06-10 06:11] LABS: Basophils % 0.9 % (0.0-0.8); Eosinophils # 0.3 10*3/uL (0.0-0.87); Eosinophils % 6.5 % (0.00-10.9); Hematocrit 27.5 VOL% (42.0-52.0); Hemoglobin 8.7 GM/DL (14.0-18.0); Immature Granulocytes % 1.9 %; Immature Granulocytes Absolute 0.09 #; Lymphocytes # 1.2 10*3/uL (1.4-4.0); Lymphocytes % 24.9 % (21.2-54.2); Mean Corpuscular HGB Conc 31.6 GM/DL (32-36); Mean Corpuscular Volume 91.7 FL (87-102); Mean Platelet Volume 11.3 FL (9.6-12.0); Monocytes % 10.6 % (1.7-12.7); Neutrophils % 55.2 % (38.7-73.9); Platelet Count 101 T/CUMM (130-400); Red Cell Distribution Width 15.2 % (9.3-17.3); White Blood Count 4.6 T/CUMM (4-12)
[2020-06-10 06:26] LABS: Calcium 9.8 MG/DL (8.5-10.1); Osmolality,Calculated 296.3 MOS/KG (273-304)
[2020-06-10] MEDS ORDERED: POTASSIUM CHLORIDE 20 MEQ TABLET PO ONE (07:54)
[2020-06-10] MEDS: PANTOPRAZOLE 40 MG VIAL IV SCH (09:39)
[2020-06-10] MEDS: levETIRAcetam 250 MG TABLET PO SCH (09:40)
[2020-06-10] MEDS: carvediloL 12.5 MG TABLET PO SCH ×2 (09:40→20:42)
[2020-06-10] MEDS: ROSUVASTATIN 20 MG TABLET PO SCH (09:40)
[2020-06-10] MEDS: SODIUM CHLORIDE 0.9% 1,000 ML IV SCH ×3 (09:41→17:31)
[2020-06-10] MEDS: TAMSULOSIN 0.4 MG CAPSULE PO SCH (09:41)
[2020-06-10] MEDS: POLYETHYLENE GLYCOL POWDER 17 GM PACK PO SCH (20:43)
[2020-06-11] MEDS: ENOXAPARIN 30 MG/0.3 ML SYRINGE SUBCUT SCH (05:44)
[2020-06-11] MEDS: AMPICILLIN INJ 1,000 MG in SODIUM CHLORIDE 0.9% 100 ML IV SCH (05:44)
[2020-06-11] MEDS: LEVOTHYROXINE 88 MCG TABLET PO SCH (06:17)
[2020-06-11 06:32] LABS: Basophils % 0.6 % (0.0-0.8); Eosinophils # 0.3 10*3/uL (0.0-0.87); Eosinophils % 5.3 % (0.00-10.9); Hematocrit 27.8 VOL% (42.0-52.0); Hemoglobin 8.7 GM/DL (14.0-18.0); Lymphocytes % 20.5 % (21.2-54.2); Mean Corpuscular HGB Conc 31.3 GM/DL (32-36); Mean Corpuscular Volume 92.7 FL (87-102); Monocytes % 10.2 % (1.7-12.7); Neutrophils % 61.4 % (38.7-73.9); Platelet Count 97 T/CUMM (130-400); Red Cell Distribution Width 14.9 % (9.3-17.3); White Blood Count 4.9 T/CUMM (4-12)
[2020-06-11 06:46] LABS: Calcium 10.3 MG/DL (8.5-10.1); Osmolality,Calculated 296.8 MOS/KG (273-304)
[2020-06-11 06:56] LABS: Hypochromasia 2+; Microcytosis 1+; Platelet Estimate Decreased
[2020-06-11] MEDS: ROSUVASTATIN 20 MG TABLET PO SCH (08:43)
[2020-06-11] MEDS: carvediloL 12.5 MG TABLET PO SCH (08:43)
[2020-06-11] MEDS: TAMSULOSIN 0.4 MG CAPSULE PO SCH (08:43)
[2020-06-11] MEDS: levETIRAcetam 250 MG TABLET PO SCH (08:43)
[2020-06-11] MEDS: PANTOPRAZOLE 40 MG VIAL IV SCH (08:43)
[2020-06-11] MEDS: VANCOMYCIN INJ 1,250 MG in SODIUM CHLORIDE 0.9% 250 ML IV SCH (11:20)
[2020-06-11 11:23] VITALS: BP 151/59
[2020-06-12 09:52] LABS: Hemoglobin A1 (Alkaline) 97.9 % (96.5-98.5); Hemoglobin A2 (Alkaline) 2.1 % (1.5-3.5)
== END 2020-06-11 16:00 | disposition home health service (06) | DRG 871 ==
LOC: EDBD → EDUNIT# → SUATTDRO → N.ED 01:13 → SUATTDRO 05:39 → N.EDINP 05:39 → N.3E 17:11
PROVIDERS: ADMIT Internal Medicine; ATTEND Hospitalist

== ENCOUNTER 2021-12-24 15:53 | Inpatient (IN) ==
[2021-12-24 16:57] LABS: Basophils % 0.2 % (0.0-0.8); Eosinophils # 0.3 10*3/uL (0.0-0.87); Eosinophils % 3.4 % (0.00-10.9); Hematocrit 23.6 VOL% (42.0-52.0); Hemoglobin 7.1 GM/DL (14.0-18.0); Immature Granulocytes % 1.3 %; Immature Granulocytes Absolute 0.12 #; Lymphocytes # 1.3 10*3/uL (1.4-4.0); Lymphocytes % 13.7 % (21.2-54.2); Mean Corpuscular HGB Conc 30.1 GM/DL (32-36); Mean Corpuscular Volume 88.1 FL (87-102); Mean Platelet Volume 13.7 FL (9.6-12.0); Monocytes % 13.9 % (1.7-12.7); NRBC # 0.06 10*3/uL; Neutrophils % 67.5 % (38.7-73.9); Platelet Count 67 T/CUMM (130-400); Red Blood Count 2.68 MC/CUMM (3.8-5.5); Red Cell Distribution Width 16.8 % (9.3-17.3); White Blood Count 9.3 T/CUMM (4-12)
[2021-12-24 17:16] LABS: Alanine Aminotransferase 19 U/L (16-61); Alkaline Phosphatase 73 U/L (45-117); Aspartate Amino Transferase 17 U/L (0-37); Bilirubin,Total < 0.39 MG/DL (0.20-1.00); Blood Urea Nitrogen 153 MG/DL (7-18); Calcium 10.1 MG/DL (8.5-10.1); Carbon Dioxide 21 MMOL/L (21-32); Estimated Glom Filtration Rate 9 ML/MIN; Glucose 103 MG/DL (74-106); Osmolality,Calculated 332.1 MOS/KG (273-304); Potassium 4.1 MMOL/L (3.5-5.1); Sodium 142 MMOL/L (136-145); Total Protein 7.7 G/DL (6.4-8.2)
[2021-12-24] MEDS ORDERED: SODIUM CHLORIDE 0.9% 500 ML IV STA (17:22)
[2021-12-24] MEDS ORDERED: SODIUM CHLORIDE 0.9% 1,000 ML IV PRN (17:23)
[2021-12-24] MEDS ORDERED: SIMETHICONE CHEW 125 MG TABLET PO PRN (17:53)
[2021-12-24] MEDS ORDERED: DEXTROSE 50% 25 GM/50 ML VIAL IV PRN (17:53)
[2021-12-24] MEDS ORDERED: DOCUSATE SODIUM 100 MG CAPSULE PO PRN (17:53)
[2021-12-24] MEDS ORDERED: ONDANSETRON 4 MG/2 ML VIAL IV PRN (17:53)
[2021-12-24] MEDS ORDERED: GLUCAGON 1 MG VIAL IM PRN ×2 (17:53)
[2021-12-24] MEDS ORDERED: SODIUM CHLORIDE 0.9% 1,000 ML IV SCH (18:00)
[2021-12-24] MEDS ORDERED: ACETAMINOPHEN 325 MG TABLET PO PRN (18:21)
[2021-12-24] MEDS ORDERED: DEXTROSE 10% 250 ML BAG IV PRN (18:23)
[2021-12-24] MEDS: INSULIN REGULAR 100 UNIT/ML SUBCUT SCH (20:32)
[2021-12-24] MEDS: PANTOPRAZOLE 40 MG VIAL IV SCH (21:22)
[2021-12-25 03:59] LABS: Basophils % 0.3 % (0.0-0.8); Eosinophils # 0.3 10*3/uL (0.0-0.87); Eosinophils % 3.9 % (0.00-10.9); Hematocrit 27.4 VOL% (42.0-52.0); Hemoglobin 8.6 GM/DL (14.0-18.0); Immature Granulocytes Absolute 0.08 #; Lymphocytes # 1.1 10*3/uL (1.4-4.0); Lymphocytes % 14.2 % (21.2-54.2); Mean Corpuscular HGB Conc 31.4 GM/DL (32-36); Mean Corpuscular Volume 85.9 FL (87-102); Monocytes % 15.4 % (1.7-12.7); NRBC # 0.03 10*3/uL; Neutrophils % 65.2 % (38.7-73.9); Platelet Count 49 T/CUMM (130-400); Red Blood Count 3.19 MC/CUMM (3.8-5.5); Red Cell Distribution Width 17.4 % (9.3-17.3); White Blood Count 7.9 T/CUMM (4-12)
[2021-12-25 04:08] LABS: INR 1.1; PT Patient Result 12.3 SECS (10.5-12.0)
[2021-12-25 04:18] LABS: Microcytosis 1+; Ovalocytes Slight; Platelet Estimate Decreased; Polychromasia Slight
[2021-12-25 04:24] LABS: Alanine Aminotransferase 16 U/L (16-61); Albumin 2.7 G/DL (3.4-5.0); Alkaline Phosphatase 59 U/L (45-117); Aspartate Amino Transferase 16 U/L (0-37); Bilirubin,Total < 0.39 MG/DL (0.20-1.00); Blood Urea Nitrogen 157 MG/DL (7-18); Calcium 9.5 MG/DL (8.5-10.1); Carbon Dioxide 21 MMOL/L (21-32); Estimated Glom Filtration Rate 9 ML/MIN; Glucose 61 MG/DL (74-106); HDL Cholesterol 27 MG/DL (40-60); Osmolality,Calculated 337.7 MOS/KG (273-304); Potassium 3.3 MMOL/L (3.5-5.1); Risk Ratio 2.89; Sodium 145 MMOL/L (136-145); Thyroid Stimulating Hormone 0.932 uIU/ml (0.358-3.74); Total Protein 7.1 G/DL (6.4-8.2); Triglycerides 167 MG/DL (2-150); VLDL Cholesterol 33.4 MG/DL
[2021-12-25 08:02] LABS: Hematocrit 26.9 VOL% (42.0-52.0); Hemoglobin 8.5 GM/DL (14.0-18.0)
[2021-12-25] MEDS: INSULIN REGULAR 100 UNIT/ML SUBCUT SCH ×4 (08:50→20:57)
[2021-12-25] MEDS ORDERED: DEXTROSE 50% 25 GM/50 ML VIAL IV PRN ×2 (09:03→12:07)
[2021-12-25] MEDS: PANTOPRAZOLE 40 MG VIAL IV SCH ×2 (09:19→20:45)
[2021-12-25] MEDS ORDERED: GLUCAGON 1 MG VIAL IM PRN (12:07)
[2021-12-25 13:43] LABS: Hematocrit 28.5 VOL% (42.0-52.0); Hemoglobin 8.9 GM/DL (14.0-18.0)
[2021-12-25] MEDS: SODIUM CHLORIDE 0.9% 1,000 ML IV SCH ×2 (14:34→20:37)
[2021-12-25] MEDS ORDERED: NON-FORMULARY MEDICATION (Insulin Aspart U-100 [Novolog Flexpen U-100 Insulin] 100 unit/mL SUBCUT SCH (15:00)
[2021-12-25] MEDS: PREGABALIN 100 MG CAPSULE PO SCH ×2 (15:55→20:44)
[2021-12-25] MEDS ORDERED: POLYETHYLENE GLYCOL POWDER 17 GM PACK PO PRN (16:10)
[2021-12-25 19:25] LABS: Hematocrit 26.3 VOL% (42.0-52.0); Hemoglobin 8.2 GM/DL (14.0-18.0)
[2021-12-25] MEDS: levETIRAcetam 250 MG TABLET PO SCH (20:45)
[2021-12-25] MEDS: METOPROLOL SUCCINATE XL 100 MG TABLET PO SCH (20:45)
[2021-12-25] MEDS ORDERED: NON-FORMULARY MEDICATION (Insulin Degludec [Tresiba Flextouch U-100] 100 unit/mL (3 mL) In SUBCUT SCH (21:00)
[2021-12-26 05:20] LABS: Basophils % 0.1 % (0.0-0.8); Eosinophils # 0.2 10*3/uL (0.0-0.87); Eosinophils % 2.8 % (0.00-10.9); Hemoglobin 8.1 GM/DL (14.0-18.0); Immature Granulocytes % 1.1 %; Immature Granulocytes Absolute 0.08 #; Lymphocytes % 13.1 % (21.2-54.2); Mean Corpuscular HGB Conc 31.2 GM/DL (32-36); Mean Corpuscular Volume 86.1 FL (87-102); Monocytes % 15.3 % (1.7-12.7); NRBC # 0.02 10*3/uL; Neutrophils % 67.6 % (38.7-73.9); Platelet Count 55 T/CUMM (130-400); Red Blood Count 3.02 MC/CUMM (3.8-5.5); Red Cell Distribution Width 17.8 % (9.3-17.3); White Blood Count 7.5 T/CUMM (4-12)
[2021-12-26] MEDS: LEVOTHYROXINE 88 MCG TABLET PO SCH (05:34)
[2021-12-26 05:36] LABS: Albumin 2.6 G/DL (3.4-5.0); Bilirubin,Total 0.4 MG/DL (0.20-1.00); Calcium 9.4 MG/DL (8.5-10.1); Osmolality,Calculated 341.7 MOS/KG (273-304); Potassium 3.1 MMOL/L (3.5-5.1); Total Protein 6.6 G/DL (6.4-8.2)
[2021-12-26 05:42] LABS: Hypochromia 1+; Microcytosis 1+; Platelet Estimate Decreased
[2021-12-26] MEDS: INSULIN REGULAR 100 UNIT/ML SUBCUT SCH ×4 (08:26→21:02)
[2021-12-26] MEDS ORDERED: SODIUM CHLORIDE 0.9% 1,000 ML IV SCH (09:00)
[2021-12-26] MEDS ORDERED: PNEUMOCOCCAL VACCINE (13 VALENT) 0.5 ML SYRINGE IM ONE (09:00)
[2021-12-26] MEDS: SODIUM CHLORIDE 0.9% 1,000 ML IV SCH ×3 (09:57→17:51)
[2021-12-26] MEDS: PANTOPRAZOLE 40 MG VIAL IV SCH ×2 (09:58→21:02)
[2021-12-26] MEDS ORDERED: LIDOCAINE 2% 5 ML VIAL ONE (14:14)
[2021-12-26] MEDS ORDERED: ETOMIDATE 20 MG/10 ML VIAL IV ONE (14:14)
[2021-12-26] MEDS ORDERED: propofoL 200 MG/20 ML VIAL IV ONE (14:14)
[2021-12-26] MEDS ORDERED: PHENYLEPHRINE 1 MG/10 ML SYRINGE IV ONE (14:22)
[2021-12-26] MEDS ORDERED: GLUCAGON 1 MG VIAL IM PRN (15:33)
[2021-12-26] MEDS ORDERED: DEXTROSE 50% 25 GM/50 ML VIAL IV PRN (15:33)
[2021-12-26] MEDS: TAMSULOSIN 0.4 MG CAPSULE PO SCH (15:53)
[2021-12-26] MEDS: PREGABALIN 100 MG CAPSULE PO SCH ×3 (15:53→21:01)
[2021-12-26] MEDS: LACTULOSE 20 GM/30 ML UDCUP PO SCH (20:04)
[2021-12-26] MEDS ORDERED: ROSUVASTATIN 20 MG TABLET PO SCH (21:00)
[2021-12-26] MEDS: levETIRAcetam 250 MG TABLET PO SCH (21:01)
[2021-12-26] MEDS: METOPROLOL SUCCINATE XL 100 MG TABLET PO SCH (21:01)
[2021-12-27 05:18] LABS: Basophils % 0.1 % (0.0-0.8); Eosinophils # 0.2 10*3/uL (0.0-0.87); Eosinophils % 2.3 % (0.00-10.9); Hematocrit 28.4 VOL% (42.0-52.0); Hemoglobin 8.5 GM/DL (14.0-18.0); Immature Granulocytes % 1.2 %; Immature Granulocytes Absolute 0.09 #; Lymphocytes # 1.1 10*3/uL (1.4-4.0); Lymphocytes % 13.5 % (21.2-54.2); Mean Corpuscular HGB Conc 29.9 GM/DL (32-36); Mean Corpuscular Volume 87.7 FL (87-102); Monocytes % 15.1 % (1.7-12.7); Neutrophils % 67.8 % (38.7-73.9); Platelet Count 55 T/CUMM (130-400); Red Blood Count 3.24 MC/CUMM (3.8-5.5); Red Cell Distribution Width 17.6 % (9.3-17.3); White Blood Count 7.8 T/CUMM (4-12)
[2021-12-27] MEDS: LEVOTHYROXINE 88 MCG TABLET PO SCH (05:38)
[2021-12-27] MEDS: SODIUM CHLORIDE 0.9% 1,000 ML IV SCH (05:38)
[2021-12-27 05:40] LABS: Albumin 2.4 G/DL (3.4-5.0); Bilirubin,Total 0.6 MG/DL (0.20-1.00); Calcium 9.6 MG/DL (8.5-10.1); Osmolality,Calculated 333.1 MOS/KG (273-304); Potassium 3.1 MMOL/L (3.5-5.1); Total Protein 6.8 G/DL (6.4-8.2)
[2021-12-27 06:31] LABS: Platelet Estimate Adequate
[2021-12-27] MEDS: LACTULOSE 20 GM/30 ML UDCUP PO SCH (08:45)
[2021-12-27] MEDS: INSULIN REGULAR 100 UNIT/ML SUBCUT SCH ×2 (08:45→12:23)
[2021-12-27] MEDS: PREGABALIN 100 MG CAPSULE PO SCH (08:46)
[2021-12-27] MEDS: TAMSULOSIN 0.4 MG CAPSULE PO SCH (08:46)
[2021-12-27] MEDS: PANTOPRAZOLE 40 MG VIAL IV SCH (08:48)
[2021-12-27 11:50] VITALS: BP 132/59
[2021-12-27] MEDS ORDERED: PANTOPRAZOLE 40 MG TABLET PO SCH (21:00)
== END 2021-12-27 14:00 | disposition home or self-care (01) | DRG 393 ==
LOC: N.ED 15:53 → SUATTDRO 17:53 → N.5E 17:53
PROVIDERS: ADMIT Emergency Medicine; ATTEND Internal Medicine

== ENCOUNTER 2022-02-25 10:01 | Inpatient (IN) ==
[2022-02-25] MEDS ORDERED: SODIUM CHLORIDE 0.9% 1,000 ML IV STA (10:20)
[2022-02-25 10:42] LABS: Basophils % 0.2 % (0.0-0.8); Eosinophils # 0.3 10*3/uL (0.0-0.87); Eosinophils % 2.9 % (0.00-10.9); Hematocrit 24.3 VOL% (42.0-52.0); Hemoglobin 7.2 GM/DL (14.0-18.0); Immature Granulocytes % 2.9 %; Immature Granulocytes Absolute 0.26 #; Lymphocytes % 10.6 % (21.2-54.2); Mean Corpuscular HGB Conc 29.6 GM/DL (32-36); Mean Corpuscular Volume 82.7 FL (87-102); Monocytes # 0.9 10*3/uL (0.11-0.8); Monocytes % 10.2 % (1.7-12.7); NRBC # 0.07 10*3/uL; Neutrophils % 73.2 % (38.7-73.9); Platelet Count 81 T/CUMM (130-400); Red Blood Count 2.94 MC/CUMM (3.8-5.5); Red Cell Distribution Width 21.2 % (9.3-17.3)
[2022-02-25 10:58] LABS: Hypochromia 1+; Microcytosis 1+
[2022-02-25 10:59] LABS: Platelet Estimate Decreased
[2022-02-25 11:00] LABS: INR 1.1; PT Patient Result 11.8 SECS (10.5-12.0); Partial Thromboplastin Time 27.3 SECS (23.8-32.1)
[2022-02-25 11:06] LABS: Albumin 2.8 G/DL (3.4-5.0); Bilirubin,Total 0.4 MG/DL (0.20-1.00); Calcium 10.4 MG/DL (8.5-10.1); Osmolality,Calculated 343.7 MOS/KG (273-304); Potassium 4.1 MMOL/L (3.5-5.1); Total Protein 7.5 G/DL (6.4-8.2)
[2022-02-25] MEDS ORDERED: GLUCAGON 1 MG VIAL IM PRN (11:59)
[2022-02-25] MEDS ORDERED: DEXTROSE 10% 250 ML BAG IV PRN (11:59)
[2022-02-25] MEDS ORDERED: ACETAMINOPHEN 325 MG TABLET PO PRN (12:01)
[2022-02-25] MEDS ORDERED: ONDANSETRON 4 MG/2 ML VIAL IV PRN (12:01)
[2022-02-25] MEDS ORDERED: SODIUM CHLORIDE 0.9% 1,000 ML IV PRN (12:03)
[2022-02-25] MEDS ORDERED: LACTULOSE 20 GM/30 ML UDCUP PO PRN (12:04)
[2022-02-25 14:13] LABS: Glucose,Urine (UA) 100 mg/dL (Negative); Ketones,Urine Negative (Negative); Mucus,Urine Occasional /LPF (Occasional); Nitrite,Urine Negative (Negative); Protein,Urine Negative (Negative); Sperm,Urine Occasional /HPF (Negative); Urine Appearance Clear (Clear); Urine Color Yellow (Yellow)
[2022-02-25 14:14] LABS: Bilirubin,Urine Negative (Negative); Blood, Urine Negative (Negative); Urine Urobilinogen 0.2 eU/dL (<2.0)
[2022-02-25] MEDS: INSULIN LISPRO 100 UNIT/ML SUBCUT SCH ×2 (16:54→20:40)
[2022-02-25] MEDS: PANTOPRAZOLE 40 MG VIAL IV SCH ×2 (16:55→20:44)
[2022-02-25] MEDS: METOPROLOL SUCCINATE XL 100 MG TABLET PO SCH (20:39)
[2022-02-25] MEDS: INSULIN GLARGINE 100 UNIT/ML SUBCUT SCH (20:39)
[2022-02-25] MEDS: ROSUVASTATIN 20 MG TABLET PO SCH ×2 (20:39→21:42)
[2022-02-25] MEDS: POLYETHYLENE GLYCOL POWDER 17 GM PACK PO SCH (20:44)
[2022-02-25] MEDS: SODIUM CHLORIDE 0.9% 1,000 ML IV SCH (20:44)
[2022-02-25] MEDS: levETIRAcetam 250 MG TABLET PO SCH (20:47)
[2022-02-25 22:12] LABS: Hematocrit 27.7 VOL% (42.0-52.0); Hemoglobin 8.5 GM/DL (14.0-18.0)
[2022-02-26 05:29] LABS: Basophils % 0.1 % (0.0-0.8); Eosinophils # 0.2 10*3/uL (0.0-0.87); Eosinophils % 2.2 % (0.00-10.9); Hemoglobin 8.7 GM/DL (14.0-18.0); Immature Granulocytes % 1.6 %; Immature Granulocytes Absolute 0.16 #; Lymphocytes # 0.7 10*3/uL (1.4-4.0); Lymphocytes % 7.3 % (21.2-54.2); Mean Corpuscular HGB Conc 31.1 GM/DL (32-36); Mean Corpuscular Volume 82.8 FL (87-102); Monocytes # 1.2 10*3/uL (0.11-0.8); Monocytes % 11.6 % (1.7-12.7); NRBC # 0.08 10*3/uL; Neutrophils % 77.2 % (38.7-73.9); Platelet Count 67 T/CUMM (130-400); Red Blood Count 3.38 MC/CUMM (3.8-5.5); Red Cell Distribution Width 19.9 % (9.3-17.3); White Blood Count 10.1 T/CUMM (4-12)
[2022-02-26] MEDS: LEVOTHYROXINE 88 MCG TABLET PO SCH (05:40)
[2022-02-26 05:43] LABS: Albumin 2.7 G/DL (3.4-5.0); Bilirubin,Total 0.4 MG/DL (0.20-1.00); Osmolality,Calculated 343.6 MOS/KG (273-304); Potassium 3.3 MMOL/L (3.5-5.1); Total Protein 6.9 G/DL (6.4-8.2)
[2022-02-26 05:51] LABS: Platelet Estimate Decreased
[2022-02-26 05:52] LABS: Hypochromia Slight; Microcytosis Slight
[2022-02-26] MEDS ORDERED: POTASSIUM CHLORIDE 20 MEQ TABLET PO ONE ×2 (07:24→17:00)
[2022-02-26] MEDS ORDERED: EPOETIN ALFA-EPBX 10,000 UNIT/ML VIAL SUBCUT ONE ×2 (08:26→11:00)
[2022-02-26] MEDS: SODIUM CHLORIDE 0.9% 1,000 ML IV SCH ×2 (09:03→16:49)
[2022-02-26] MEDS: INSULIN LISPRO 100 UNIT/ML SUBCUT SCH ×4 (09:03→21:17)
[2022-02-26 10:29] LABS: % Iron Saturation 8.8 % (18-50); Ferritin 70.8 ng/mL (26-388)
[2022-02-26 10:35] LABS: Basophils % 0.1 % (0.0-0.8); Eosinophils # 0.2 10*3/uL (0.0-0.87); Eosinophils % 2.2 % (0.00-10.9); Hematocrit 28.3 VOL% (42.0-52.0); Hemoglobin 8.6 GM/DL (14.0-18.0); Immature Granulocytes % 1.4 %; Immature Granulocytes Absolute 0.14 #; Lymphocytes # 0.8 10*3/uL (1.4-4.0); Lymphocytes % 7.7 % (21.2-54.2); Mean Corpuscular HGB Conc 30.4 GM/DL (32-36); Mean Corpuscular Volume 84.5 FL (87-102); Mean Platelet Volume 12.3 FL (9.6-12.0); Monocytes % 10.4 % (1.7-12.7); NRBC # 0.06 10*3/uL; Neutrophils % 78.2 % (38.7-73.9); Platelet Count 74 T/CUMM (130-400); Red Blood Count 3.35 MC/CUMM (3.8-5.5); Red Cell Distribution Width 20.2 % (9.3-17.3); White Blood Count 9.7 T/CUMM (4-12)
[2022-02-26] MEDS: PANTOPRAZOLE 40 MG VIAL IV SCH ×2 (10:39→21:26)
[2022-02-26] MEDS: FERRIC GLUCONATE COMPLEX 125 MG in SODIUM CHLORIDE 0.9% 100 ML IV SCH (10:42)
[2022-02-26 10:57] LABS: Platelet Estimate Decreased
[2022-02-26 11:12] LABS: Folate 7.96 NG/ML (5.38-24.0); Vitamin B12 422 PG/ML (211-911)
[2022-02-26 11:45] LABS: Sedimentation Rate-Westergren 111 MM/HR (0-20)
[2022-02-26] MEDS ORDERED: ETOMIDATE 20 MG/10 ML VIAL IV ONE (14:30)
[2022-02-26] MEDS ORDERED: propofoL 200 MG/20 ML VIAL IV ONE ×2 (14:30→14:32)
[2022-02-26] MEDS ORDERED: LIDOCAINE 2% 5 ML VIAL ONE ×2 (14:30→14:32)
[2022-02-26] MEDS: METOPROLOL SUCCINATE XL 100 MG TABLET PO SCH ×2 (16:23→21:16)
[2022-02-26] MEDS: DULoxetine 30 MG CAPSULE PO SCH (16:47)
[2022-02-26] MEDS: TAMSULOSIN 0.4 MG CAPSULE PO SCH (16:47)
[2022-02-26] MEDS: levETIRAcetam 250 MG TABLET PO SCH (21:16)
[2022-02-26] MEDS: INSULIN GLARGINE 100 UNIT/ML SUBCUT SCH (21:16)
[2022-02-26] MEDS: ROSUVASTATIN 20 MG TABLET PO SCH (21:16)
[2022-02-26] MEDS: POLYETHYLENE GLYCOL POWDER 17 GM PACK PO SCH (21:17)
[2022-02-27] MEDS: LEVOTHYROXINE 88 MCG TABLET PO SCH (06:02)
[2022-02-27] MEDS: SODIUM CHLORIDE 0.9% 1,000 ML IV SCH ×2 (06:02→10:25)
[2022-02-27 08:07] LABS: Basophils % 0.3 % (0.0-0.8); Eosinophils # 0.1 10*3/uL (0.0-0.87); Eosinophils % 1.2 % (0.00-10.9); Hematocrit 27.8 VOL% (42.0-52.0); Hemoglobin 8.4 GM/DL (14.0-18.0); Immature Granulocytes % 1.1 %; Immature Granulocytes Absolute 0.12 #; Lymphocytes # 0.8 10*3/uL (1.4-4.0); Lymphocytes % 7.2 % (21.2-54.2); Mean Corpuscular HGB Conc 30.2 GM/DL (32-36); Mean Corpuscular Volume 84.2 FL (87-102); Monocytes # 1.2 10*3/uL (0.11-0.8); Monocytes % 11.7 % (1.7-12.7); NRBC # 0.06 10*3/uL; Neutrophils % 78.5 % (38.7-73.9); Platelet Count 71 T/CUMM (130-400); Red Cell Distribution Width 20.6 % (9.3-17.3); White Blood Count 10.5 T/CUMM (4-12)
[2022-02-27 08:16] LABS: Hemoglobin A1 (Alkaline) 98.3 % (96.5-98.5); Hemoglobin A2 (Alkaline) 1.7 % (1.5-3.5)
[2022-02-27 08:18] LABS: Calcium 9.5 MG/DL (8.5-10.1); Potassium 3.4 MMOL/L (3.5-5.1)
[2022-02-27 08:38] LABS: Hypochromia Slight; Microcytosis Slight; Platelet Estimate Decreased
[2022-02-27] MEDS: METOPROLOL SUCCINATE XL 100 MG TABLET PO SCH ×2 (08:57→21:55)
[2022-02-27] MEDS: DULoxetine 30 MG CAPSULE PO SCH (08:57)
[2022-02-27] MEDS: FERRIC GLUCONATE COMPLEX 125 MG in SODIUM CHLORIDE 0.9% 100 ML IV SCH (08:57)
[2022-02-27] MEDS: TAMSULOSIN 0.4 MG CAPSULE PO SCH (08:57)
[2022-02-27] MEDS: INSULIN LISPRO 100 UNIT/ML SUBCUT SCH ×4 (08:58→21:56)
[2022-02-27] MEDS: PANTOPRAZOLE 40 MG VIAL IV SCH ×2 (09:04→21:52)
[2022-02-27] MEDS: POTASSIUM CHLORIDE INJ 10 MEQ in SODIUM CHLORIDE 0.45% 1,000 ML IV SCH (10:23)
[2022-02-27] MEDS: levETIRAcetam 250 MG TABLET PO SCH (21:55)
[2022-02-27] MEDS: SODIUM BICARBONATE 650 MG TABLET PO SCH (21:55)
[2022-02-27] MEDS: ROSUVASTATIN 20 MG TABLET PO SCH (21:55)
[2022-02-27] MEDS: INSULIN GLARGINE 100 UNIT/ML SUBCUT SCH (21:56)
[2022-02-27] MEDS: POLYETHYLENE GLYCOL POWDER 17 GM PACK PO SCH (21:56)
[2022-02-28 05:22] LABS: Basophils % 0.2 % (0.0-0.8); Eosinophils # 0.2 10*3/uL (0.0-0.87); Eosinophils % 1.5 % (0.00-10.9); Hematocrit 29.3 VOL% (42.0-52.0); Hemoglobin 8.7 GM/DL (14.0-18.0); Immature Granulocytes % 1.2 %; Immature Granulocytes Absolute 0.12 #; Lymphocytes # 0.8 10*3/uL (1.4-4.0); Lymphocytes % 7.9 % (21.2-54.2); Mean Corpuscular HGB Conc 29.7 GM/DL (32-36); Mean Corpuscular Volume 85.4 FL (87-102); Monocytes # 1.4 10*3/uL (0.11-0.8); Monocytes % 13.5 % (1.7-12.7); NRBC # 0.02 10*3/uL; Neutrophils % 75.7 % (38.7-73.9); Platelet Count 68 T/CUMM (130-400); Red Blood Count 3.43 MC/CUMM (3.8-5.5); Red Cell Distribution Width 20.8 % (9.3-17.3)
[2022-02-28 05:38] LABS: Osmolality,Calculated 334.1 MOS/KG (273-304); Potassium 3.2 MMOL/L (3.5-5.1)
[2022-02-28 05:41] LABS: Platelet Estimate Decreased
[2022-02-28 05:42] LABS: Hypochromia 1+
[2022-02-28] MEDS: POTASSIUM CHLORIDE INJ 10 MEQ in SODIUM CHLORIDE 0.45% 1,000 ML IV SCH (06:20)
[2022-02-28] MEDS: LEVOTHYROXINE 88 MCG TABLET PO SCH (06:39)
[2022-02-28] MEDS: INSULIN LISPRO 100 UNIT/ML SUBCUT SCH ×4 (08:50→21:19)
[2022-02-28] MEDS: TAMSULOSIN 0.4 MG CAPSULE PO SCH (10:25)
[2022-02-28] MEDS: SODIUM BICARBONATE 650 MG TABLET PO SCH ×2 (10:25→21:19)
[2022-02-28] MEDS: DULoxetine 30 MG CAPSULE PO SCH (10:26)
[2022-02-28] MEDS: PANTOPRAZOLE 40 MG VIAL IV SCH ×2 (10:26→21:19)
[2022-02-28] MEDS: FUROSEMIDE 80 MG TABLET PO SCH (10:26)
[2022-02-28] MEDS: METOPROLOL SUCCINATE XL 100 MG TABLET PO SCH ×2 (10:28→21:19)
[2022-02-28] MEDS: FERRIC GLUCONATE COMPLEX 125 MG in SODIUM CHLORIDE 0.9% 100 ML IV SCH (10:56)
[2022-02-28] MEDS: levETIRAcetam 250 MG TABLET PO SCH (21:19)
[2022-02-28] MEDS: INSULIN GLARGINE 100 UNIT/ML SUBCUT SCH (21:19)
[2022-02-28] MEDS: ROSUVASTATIN 20 MG TABLET PO SCH (21:19)
[2022-02-28] MEDS: POLYETHYLENE GLYCOL POWDER 17 GM PACK PO SCH (21:19)
[2022-03-01] MEDS: POTASSIUM CHLORIDE INJ 10 MEQ in SODIUM CHLORIDE 0.45% 1,000 ML IV SCH (04:03)
[2022-03-01 05:13] LABS: Basophils % 0.3 % (0.0-0.8); Eosinophils # 0.3 10*3/uL (0.0-0.87); Eosinophils % 2.9 % (0.00-10.9); Hematocrit 28.1 VOL% (42.0-52.0); Hemoglobin 8.3 GM/DL (14.0-18.0); Immature Granulocytes % 1.2 %; Immature Granulocytes Absolute 0.12 #; Lymphocytes # 0.8 10*3/uL (1.4-4.0); Mean Corpuscular HGB Conc 29.5 GM/DL (32-36); Mean Corpuscular Volume 85.7 FL (87-102); Monocytes # 1.2 10*3/uL (0.11-0.8); NRBC # 0.03 10*3/uL; Neutrophils % 75.6 % (38.7-73.9); Platelet Count 70 T/CUMM (130-400); Red Blood Count 3.28 MC/CUMM (3.8-5.5); Red Cell Distribution Width 20.4 % (9.3-17.3); White Blood Count 9.6 T/CUMM (4-12)
[2022-03-01 05:29] LABS: Platelet Estimate Decreased
[2022-03-01 05:30] LABS: Anisocytosis Slight
[2022-03-01 05:31] LABS: Ovalocytes Few; Polychromasia Slight
[2022-03-01 05:31] LABS: Calcium 10.1 MG/DL (8.5-10.1); Osmolality,Calculated 331.1 MOS/KG (273-304); Potassium 3.1 MMOL/L (3.5-5.1)
[2022-03-01] MEDS: LEVOTHYROXINE 88 MCG TABLET PO SCH (06:30)
[2022-03-01] MEDS ORDERED: POTASSIUM CHLORIDE 20 MEQ TABLET PO ONE (07:48)
[2022-03-01] MEDS: DULoxetine 30 MG CAPSULE PO SCH (08:40)
[2022-03-01] MEDS: METOPROLOL SUCCINATE XL 100 MG TABLET PO SCH ×2 (08:41→20:19)
[2022-03-01] MEDS: TAMSULOSIN 0.4 MG CAPSULE PO SCH (08:42)
[2022-03-01] MEDS: FUROSEMIDE 80 MG TABLET PO SCH (08:42)
[2022-03-01] MEDS: INSULIN LISPRO 100 UNIT/ML SUBCUT SCH ×4 (08:43→20:40)
[2022-03-01] MEDS: PANTOPRAZOLE 40 MG VIAL IV SCH ×2 (08:43→20:24)
[2022-03-01] MEDS: FERRIC GLUCONATE COMPLEX 125 MG in SODIUM CHLORIDE 0.9% 100 ML IV SCH (09:40)
[2022-03-01] MEDS: LACTATED RINGERS 1,000 ML IV SCH (12:32)
[2022-03-01] MEDS: ROSUVASTATIN 20 MG TABLET PO SCH (20:19)
[2022-03-01] MEDS: levETIRAcetam 250 MG TABLET PO SCH (20:19)
[2022-03-01] MEDS: POLYETHYLENE GLYCOL POWDER 17 GM PACK PO SCH (20:21)
[2022-03-01] MEDS: INSULIN GLARGINE 100 UNIT/ML SUBCUT SCH (20:40)
[2022-03-02] MEDS: LEVOTHYROXINE 88 MCG TABLET PO SCH (05:37)
[2022-03-02 06:09] LABS: Basophils % 0.2 % (0.0-0.8); Eosinophils # 0.3 10*3/uL (0.0-0.87); Eosinophils % 3.3 % (0.00-10.9); Hematocrit 28.1 VOL% (42.0-52.0); Hemoglobin 8.3 GM/DL (14.0-18.0); Immature Granulocytes % 1.4 %; Immature Granulocytes Absolute 0.13 #; Lymphocytes # 0.7 10*3/uL (1.4-4.0); Lymphocytes % 7.3 % (21.2-54.2); Mean Corpuscular HGB Conc 29.5 GM/DL (32-36); Mean Corpuscular Volume 84.6 FL (87-102); Monocytes # 1.3 10*3/uL (0.11-0.8); Monocytes % 13.3 % (1.7-12.7); NRBC # 0.02 10*3/uL; Neutrophils % 74.5 % (38.7-73.9); Platelet Count 74 T/CUMM (130-400); Red Blood Count 3.32 MC/CUMM (3.8-5.5); Red Cell Distribution Width 20.4 % (9.3-17.3); White Blood Count 9.6 T/CUMM (4-12)
[2022-03-02 06:33] LABS: Calcium 10.6 MG/DL (8.5-10.1); Osmolality,Calculated 325.3 MOS/KG (273-304)
[2022-03-02 06:34] LABS: Anisocytosis 1+; Platelet Estimate Decreased
[2022-03-02] MEDS: INSULIN LISPRO 100 UNIT/ML SUBCUT SCH ×2 (08:27→12:49)
[2022-03-02] MEDS: LACTATED RINGERS 1,000 ML IV SCH (08:35)
[2022-03-02] MEDS ORDERED: EPOETIN ALFA-EPBX 10,000 UNIT/ML VIAL SUBCUT ONE ×2 (09:21→11:00)
[2022-03-02] MEDS: FERRIC GLUCONATE COMPLEX 125 MG in SODIUM CHLORIDE 0.9% 100 ML IV SCH (09:49)
[2022-03-02] MEDS: PANTOPRAZOLE 40 MG VIAL IV SCH (09:50)
[2022-03-02] MEDS: POTASSIUM CHLORIDE 20 MEQ TABLET PO SCH ×2 (09:51→12:14)
[2022-03-02] MEDS: TAMSULOSIN 0.4 MG CAPSULE PO SCH (09:51)
[2022-03-02] MEDS: METOPROLOL SUCCINATE XL 100 MG TABLET PO SCH (09:52)
[2022-03-02] MEDS: FUROSEMIDE 80 MG TABLET PO SCH (09:52)
[2022-03-02] MEDS: DULoxetine 30 MG CAPSULE PO SCH (09:52)
[2022-03-02] MEDS ORDERED: POTASSIUM CHLORIDE 20 MEQ TABLET PO SCH (12:30)
[2022-03-02 16:59] VITALS: BP 115/68
== END 2022-03-02 16:45 | DRG 682 ==
LOC: N.ED 10:01 → SUATTDRO 11:59 → N.EDINP 11:59 → N.TELES 15:33
PROVIDERS: ADMIT Internal Medicine; ATTEND Family Medicine